=== PATIENT | male | born 1955 | race Caucasian/White ===

== ENCOUNTER → 2018-04-20 09:53 | Outpatient (CLI) | payer BC, SELFPAY ==
[2018-04-20 12:27] LABS: Absolute Lymphocyte Count 1.18 X10^3/ul (0.83-4.51); Absolute Neutrophil Count 6.8 X10^3/uL (2.0-7.7); Basophil# 0.02 X10^3/uL; Basophil% 0.2 % (0-1); Eosinophil# 0.36 X10^3/uL; Eosinophils% 3.9 % (0-5); Hematocrit 53.6 % (40-54); Lymphocyte # 1.18 X10^3/ul (4.0); Lymphocyte % 12.9 % (19-41); Mean Corp Hgb Conc 33.6 g/gl (32-36); Mean Corpuscular Hgb 30.2 pg (27.0-32.0); Mean Corpuscular Volume 89.8 fL (80-94); Mean Platelet Vol. 10.3 fl (6.2-12.0); Monocyte# 0.77 X10^3/uL; Monocyte% 8.4 % (0-10); Neutrophil # 6.79 X10^3/uL (2.7-7.7); Neutrophil % 73.9 % (47-70); Platelet Count 203 K/mm3 (150-450); RBC Distribution Width CV 13.1 % (11.6-14.6); RBC Distribution Width SD 43.7 fl (35.1-43.9); Red Blood Count 5.97 M/mm3 (4.6-6.2); White Blood Count 9.2 K/mm3 (4.4-11.0)
[2018-04-20 12:32] LABS: POSITIVE COUNT NO; POSITIVE DIFFERENTIAL NO; POSITIVE MORPHOLOGY NO
[2018-04-20 12:52] LABS: Hemoglobin A1c 6.2 % (4.2-6.3)
[2018-04-20 12:53] LABS: AST(SGOT) 17 U/L (15-37); Alanine Aminotransfer ALT/SGPT 28 U/L (16-61); Albumin, Serum 3.8 g/dL (3.2-5.0); Alkaline Phosphatase 130 U/L (45-117); Anion Gap 8 (5-15); BUN 18 mg/dL (7-18); BUN/Creat Ratio 16.8 RATIO (10-20); Calcium,Total 9.7 mg/dL (8.5-10.1); Chloride 103 mmol/L (98-107); Cholesterol 106 mg/dL (200); Creatinine, Serum 1.07 mg/dL (0.70-1.30); EST Glomerular Filtration Rate 74 mL/min (>60); Est Glom Filt Rate - Afr Amer 90 mL/min (>60); Globulin 3.7 g/dL (2.2-4.2); Glucose 185 mg/dL (74-106); High Density Lipoprotein 44 mg/dL; Protein, Total 7.5 g/dL (6.4-8.2); Sodium Level 137 mmol/L (136-145); Triglycerides 87 mg/dL; Very Low Density Lipoprotein 17 mg/dL (5-40)
== END ==
PROVIDERS: Family Provider Family Medicine; PCP Family Medicine; Visit Provider Family Medicine
DX: Z01.818 Encounter for other preprocedural examination (principal)
CPT/HCPCS: 36415; 80053; 80061; 83036; 85025

== ENCOUNTER → 2018-04-28 12:41 | Outpatient (CLI) | payer BC, SELFPAY ==
[2018-04-28 14:16] LABS: Absolute Lymphocyte Count 1.51 X10^3/ul (0.83-4.51); Absolute Neutrophil Count 6.5 X10^3/uL (2.0-7.7); Basophil# 0.03 X10^3/uL; Basophil% 0.3 % (0-1); Eosinophil# 0.15 X10^3/uL; Eosinophils% 1.7 % (0-5); Hematocrit 55.1 % (40-54); Lymphocyte # 1.51 X10^3/ul (4.0); Lymphocyte % 16.8 % (19-41); Mean Corp Hgb Conc 34.3 g/gl (32-36); Mean Corpuscular Hgb 30.4 pg (27.0-32.0); Mean Corpuscular Volume 88.6 fL (80-94); Mean Platelet Vol. 9.4 fl (6.2-12.0); Monocyte# 0.75 X10^3/uL; Monocyte% 8.3 % (0-10); Neutrophil # 6.49 X10^3/uL (2.7-7.7); Platelet Count 256 K/mm3 (150-450); RBC Distribution Width CV 12.9 % (11.6-14.6); RBC Distribution Width SD 42.2 fl (35.1-43.9); Red Blood Count 6.22 M/mm3 (4.6-6.2)
[2018-04-28 14:21] LABS: Hemoglobin 18.9 g/dl (13.0-16.5); POSITIVE COUNT NO; POSITIVE DIFFERENTIAL NO; POSITIVE MORPHOLOGY NO
[2018-04-28 15:16] LABS: Ferritin 188 ng/mL (26-388); Iron 90 ug/dL (65-175); Iron Binding Capacity,Total 325 ug/dL (250-450)
[2018-04-30 11:11] LABS: Transferrin 260 mg/dL (200-370)
== END ==
PROVIDERS: Family Medicine; Family Provider Family Medicine; PCP Family Medicine; Referring Provider Family Medicine; Visit Provider Family Medicine
DX: D75.1 Secondary polycythemia (principal); R89.9 Unspecified abnormal finding in specimens from other organs, systems and tissues
CPT/HCPCS: 36415; 82728; 83540; 83550; 84466; 85025

== ENCOUNTER 2018-05-13 10:37 | Day surgery (SDC) | payer BC, SELFPAY ==
[2018-05-06 09:26] VITALS: BP 137/85; PULSE 88; RESP 16; TEMP 37.1; O2SAT 98; BMI 34.4
[2018-05-13 11:27] VITALS: BP 145/85; PULSE 83; RESP 16; TEMP 36.4; O2SAT 100; BMI 34.4
[2018-05-13 11:45] LABS: Bedside Glucose 168 mg/dL (70-110)
[2018-05-13] MEDS: Tetracaine 0.5% Ophthalmic Bottle 1 DRP (12:53)
--- NOTE | 2018-05-13 13:14 | PCM.DC.CATCL ---
Allergies/Adverse Reactions: Allergies hydroxyurea [From Hydrea] Allergy (Verified 05/06/18 09:17) Other MOUTH SORES Medications to take at Discharge Allopurinol 300 mg PO DAILY 04/07/16 Glimepiride 4 mg PO BID 04/07/16 Metformin [Metformin HCl] 1,000 mg PO BID 04/07/16 Aspirin E.C. [Ecotrin] 81 mg PO DAILY@0800 05/06/18 Atorvastatin Calcium [Lipitor] 40 mg PO QHS 05/06/18 Carvedilol [Coreg] 18.75 mg PO BID 05/06/18 Dulaglutide [Trulicity] 1.5 mg SQ QWEEK 05/06/18 Fish Oil/Dha/Epa [Fish Oil 1,200 mg Fish Oil] 1 each PO DAILY 05/06/18 Lisinopril [Zestril] 10 mg PO DAILY 05/06/18 Psyllium Husk [Fiber] 0.52 gm PO DAILY 05/06/18 Cataract Instructions: -Take a pain reliever such as Tylenol, Aspirin or Ibuprofen if needed for eye aching or pain. If this is not enough relief for you pain, call your doctor (or the doctor caregivers non medical), even at night. -You are scheduled for a follow-up appointment at [facility] the day after surgery. You should have someone drive you. -Transient pain and irritation are due to the incision that was made at the time of surgery and do not indicate any trouble. Our office numbers are . If there is no answer, or if it is after our normal business hours, call your surgeon. My home phone number is: Dr. Sonal Dietz INSTRUCTIONS FOLLOWING TOPICAL ANESTHETIC CATARACT SURGERY Protect operated eye with glasses or metal shield at all times. Instill one drop of Polytrim (or other antibiotic drop), one drop of Prednisolone and one drop of Acular in the operated eye four times a day (breakfast, lunch, dinner, and bedtime) until the doctor tells you to quit or decrease them. Wait 3-5 minutes between each drop. Please begin these immediately upon arriving at home. if your surgery is in t he afternoon, try to use the drops at least three more times the day of surgery and again the following morning before your appointment. INSTRUCTIONS FOLLOWING RETROBULBAR CATARACT SURGERY Keep the eye patch and metal shield on until you see your surgeon the day after surgery - these will be removed in the office that day. Do not drive while the patch is on your eye. You will be instructed about the use of drops for the operated eye at that visit. Primary Care Physician: Swapnil Osullivan MD [Primary Care Provider] -
--- NOTE | 2018-05-13 13:14 | PCM.OP.BLANK ---
Operative Report Date of Procedure: 05/13/18 Preoperative Diagnosis: Cataract Right Eye Postoperative Diagnosis: Same Procedure: Cataract Extraction via phacoemulsification with intraocular lens implant Right Eye Anesthesia: Mac/topical Complications: none Estimated Blood Loss: none Indications for procedure: This is a 62 year old male with history of worsening vision in the right eye secondary to cataract. After discussion of the risks, benefits, and alternatives procedure the patient agreed to proceed with cataract extraction of the right eye. Description of procedure: The patient was brought to the operative room where a time out was performed prior to the start of the procedure. Anesthesia team induced light sedation, and the eye was prepped and draped in the normal sterile fashion for eye surgery. A flavia blade knife was used to create a paracentesis incision. Preservative free lidocaine followed by viscoelastic was introduced into the anterior chamber. A keratome was used to create a clear corneal biplanar incision at the temporal limbus. A cystotome was used to begin the capsulorhexis, which was completed in a continuous curvilinear fashion using the capsulorhexis forceps. BSS on a tesfaye cannula was used to hydrate beneath the lens capsule until the lens was noted to be freely mobile in the capsular bag. Phacoemulsification was used to remove the lens in a divide and conquer technique. Irrigation and aspiration was used to remove the remaining cortical material. The capsular bag was inflated with provisc, and a tecnis PCBOO 15.5 diopter lens was placed in the capsular bag and adjusted using a yolanda hook. The remaining viscoelastic material was removed. The wounds were hydrated and noted to be watertight with the use of a wexcell sponge. The patient was taken to the recovery room in a stable condition with instructions to follow up in the clinic for the scheduled postoperative visit.
[2018-05-13 13:17] VITALS: BP 142/95; BP 145/85; PULSE 82; RESP 16; TEMP 36.7; O2SAT 96
--- NOTE | 2018-05-13 13:17 | OP.PN_ITS ---
Immediate Post-Op Note Date of Procedure: 05/13/18 Primary Surgeon/Physician: Sonal Dietz MD drug abuse worker: Amadou burton Pre-Operative Diagnosis: cataract right eye Post-Operative Diagnosis: same Surgery/Procedure Performed:: PEM IOL OD Description of Surgical Findings:: cataract Estimated Blood Loss: none Specimen's removed: none Drains: none Type of Anesthesia:: MAC and Topical Anesth
[2018-05-13 13:22] VITALS: BP 141/91; BP 145/85; PULSE 82; RESP 16; O2SAT 97
[2018-05-13 13:27] VITALS: BP 139/93; BP 145/85; PULSE 84; RESP 16; O2SAT 98
[2018-05-13 13:32] VITALS: BP 145/84; BP 145/85; PULSE 81; RESP 16; TEMP 36.8; O2SAT 98
[2018-05-13 14:22] VITALS: BP 145/85
== END 2018-05-13 14:23 | disposition home or self-care (01) ==
LOC: SDC 10:45 → AC 10:45
PROVIDERS: Family Provider Family Medicine; PCP Family Medicine; Referring Provider Ophthalmology; Visit Provider Ophthalmology
PROC: (CPT 66984; principal; 2018-05-13 12:10)
DX: E11.36 Type 2 diabetes mellitus with diabetic cataract (principal); I25.10 Atherosclerotic heart disease of native coronary artery without angina pectoris; I25.2 Old myocardial infarction; I10 Essential (primary) hypertension; E78.00 Pure hypercholesterolemia, unspecified; G47.30 Sleep apnea, unspecified; Z79.82 Long term (current) use of aspirin; Z79.84 Long term (current) use of oral hypoglycemic drugs; Z79.899 Other long term (current) drug therapy
CPT/HCPCS: 66984; 82962; J7120

== ENCOUNTER → 2018-11-16 08:24 | Outpatient (CLI) | payer OTHER, SELFPAY ==
[2018-11-16 10:09] LABS: Mean Corp Hgb Conc 34.8 g/gl (32-36); Mean Corpuscular Hgb 31.2 pg (27.0-32.0); Mean Corpuscular Volume 89.7 fL (80-94); Mean Platelet Vol. 10.1 fl (6.2-12.0); Platelet Count 204 K/mm3 (150-450); RBC Distribution Width CV 12.9 % (11.6-14.6); RBC Distribution Width SD 41.7 fl (35.1-43.9); Red Blood Count 6.29 M/mm3 (4.6-6.2); White Blood Count 8.3 K/mm3 (4.4-11.0)
[2018-11-16 10:13] LABS: Hematocrit 56.4 % (40-54)
[2018-11-16 10:15] LABS: Hemoglobin 19.6 g/dl (13.0-16.5); Scan Indicated on CBC? Y/N NO
[2018-11-16 10:47] LABS: Anion Gap 7 (5-15); BUN 28 mg/dL (7-18); BUN/Creat Ratio 21.4 RATIO (10-20); Calcium,Total 10.2 mg/dL (8.5-10.1); Chloride 102 mmol/L (98-107); Cholesterol 122 mg/dL (200); Creatinine, Serum 1.31 mg/dL (0.70-1.30); EST Glomerular Filtration Rate 59 mL/min (>60); Est Glom Filt Rate - Afr Amer 71 mL/min (>60); Glucose 171 mg/dL (74-106); High Density Lipoprotein 41 mg/dL; Potassium 4.5 mmol/L (3.5-5.1); Sodium Level 134 mmol/L (136-145); Triglycerides 122 mg/dL; Very Low Density Lipoprotein 24 mg/dL (5-40)
== END ==
PROVIDERS: Family Provider Family Medicine; PCP Family Medicine; Visit Provider Family Medicine
DX: E11.9 Type 2 diabetes mellitus without complications (principal); E83.119 Hemochromatosis, unspecified
CPT/HCPCS: 36415; 80048; 80061; 85027

== ENCOUNTER → 2019-08-12 09:52 | Outpatient (CLI) | payer OTHER, SELFPAY ==
[2019-06-14 14:18] VITALS: BMI 29.4
[2019-08-12 13:00] LABS: Anion Gap 4 (5-15); BUN 30 mg/dL (7-18); BUN/Creat Ratio 25.9 RATIO (10-20); Calcium,Total 10.1 mg/dL (8.5-10.1); Chloride 105 mmol/L (98-107); Creatinine, Serum 1.16 mg/dL (0.70-1.30); EST Glomerular Filtration Rate 68 mL/min (>60); Est Glom Filt Rate - Afr Amer 82 mL/min (>60); Glucose 137 mg/dL (74-106); Potassium 4.5 mmol/L (3.5-5.1); Sodium Level 136 mmol/L (136-145)
== END ==
PROVIDERS: PCP Family Medicine; Referring Provider Family Medicine; Visit Provider Family Medicine
DX: E11.9 Type 2 diabetes mellitus without complications (principal)
CPT/HCPCS: 36415; 80048

== ENCOUNTER → 2020-04-11 15:45 | Outpatient (CLI) | payer OTHER, SELFPAY ==
[2019-06-14 14:18] VITALS: BMI 29.4
[2020-04-11 18:34] LABS: AST(SGOT) 18 U/L (15-37); Alanine Aminotransfer ALT/SGPT 26 U/L (16-61); Albumin, Serum 3.6 g/dL (3.2-5.0); Alkaline Phosphatase 95 U/L (45-117); Anion Gap 5 (5-15); BUN 25 mg/dL (7-18); BUN/Creat Ratio 18.5 RATIO (10-20); Calcium,Total 9.5 mg/dL (8.5-10.1); Chloride 105 mmol/L (98-107); Creatinine, Serum 1.35 mg/dL (0.70-1.30); EST Glomerular Filtration Rate 57 mL/min (>60); Est Glom Filt Rate - Afr Amer 68 mL/min (>60); Globulin 3.6 g/dL (2.2-4.2); Glucose 162 mg/dL (74-106); Potassium 4.2 mmol/L (3.5-5.1); Protein, Total 7.2 g/dL (6.4-8.2); Sodium Level 137 mmol/L (136-145); Thyroid Stim Hormone (TSH) 0.35 uIU/mL (0.358-3.74)
[2020-04-12 09:47] LABS: PTHIN 61.4 pg/mL (18.4-80.1)
== END ==
PROVIDERS: PCP Family Medicine; Referring Provider Family Medicine; Visit Provider Family Medicine
DX: E83.52 Hypercalcemia (principal)
CPT/HCPCS: 36415; 80053; 82330; 83970; 84443

== ENCOUNTER → 2020-05-10 08:21 | Outpatient (CLI) | payer OTHER, SELFPAY ==
[2019-06-14 14:18] VITALS: BMI 29.4
[2020-05-10 10:31] LABS: Cholesterol 174 mg/dL (200); High Density Lipoprotein 54 mg/dL; Triglycerides 86 mg/dL; Very Low Density Lipoprotein 17 mg/dL (5-40)
== END ==
PROVIDERS: PCP Family Medicine; Referring Provider Family Medicine; Visit Provider Family Medicine
DX: E78.5 Hyperlipidemia, unspecified (principal)
CPT/HCPCS: 36415; 80061

== ENCOUNTER → 2021-03-15 07:51 | Outpatient (CLI) | payer OTHER, SELFPAY ==
[2021-03-15 10:54] LABS: Anion Gap 8 (5-15); BUN 24 mg/dL (7-18); BUN/Creat Ratio 24.9 RATIO (10-20); Calcium,Total 9.7 mg/dL (8.5-10.1); Chloride 104 mmol/L (98-107); Cholesterol 103 mg/dL (200); Creatinine, Serum 0.96 mg/dL (0.70-1.30); EST Glomerular Filtration Rate 83 mL/min (>60); Est Glom Filt Rate - Afr Amer 101 mL/min (>60); Glucose 129 mg/dL (74-106); High Density Lipoprotein 48 mg/dL; Potassium 4.2 mmol/L (3.5-5.1); Sodium Level 137 mmol/L (136-145); Triglycerides 102 mg/dL; Very Low Density Lipoprotein 20 mg/dL (5-40)
== END ==
PROVIDERS: PCP Family Medicine; Referring Provider Family Medicine; Visit Provider Family Medicine
DX: I10 Essential (primary) hypertension (principal)
CPT/HCPCS: 36415; 80048; 80061

== ENCOUNTER → 2021-05-31 08:15 | Outpatient (CLI) | payer OTHER, SELFPAY ==
--- NOTE | 2021-05-31 08:32 | US_ITS ---
INDICATION: RUQ GALLSTONE EXAMINATION: Ultrasound US Abdomen Limited (quadrant) TECHNIQUE: Grant scale imaging with graded compression and color doppler was obtained of the right upper quadrant COMPARISON: Ultrasound from 07/25/2015, 02/15/2016. FINDINGS: Liver: Liver measures approximately 21 cm and is enlarged but stable since 2015. Mildly increased echogenicity consistent with diffuse hepatic steatosis. No masses. Hepatic color flow is present. The direction of portal flow is hepatopedal. Gallbladder: Cholelithiasis. Normal distention. No gallbladder wall thickening or pericholecystic fluid. No sonographic Chen sign. No intrahepatic duct dilation. Common bile duct: 3 mm, within normal limits. Right kidney: 14.0 x 6.3 x 5.5 cm. Renal cortex measures 1.8 cm and is within normal limits. No masses. No echogenic calculi. No hydronephrosis. Pancreas: Not visualized due to overlying bowel gas. US/Abdomen Limited IMPRESSION: 1. Cholelithiasis without findings to suggest acute cholecystitis. 2. Stable hepatomegaly and diffuse hepatic steatosis. No hepatic masses. Electronically Signed: Henrry Allen MD at 10:24 EST Tel , Service support ,
[2021-05-31 09:31] LABS: AST(SGOT) 10 U/L (15-37); Alanine Aminotransfer ALT/SGPT 21 U/L (16-61); Albumin, Serum 3.5 g/dL (3.2-5.0); Alkaline Phosphatase 90 U/L (45-117); Anion Gap 5 (5-15); BUN 23 mg/dL (7-18); BUN/Creat Ratio 22.1 RATIO (10-20); Calcium,Total 9.4 mg/dL (8.5-10.1); Chloride 107 mmol/L (98-107); Cholesterol 94 mg/dL (200); Creatinine, Serum 1.04 mg/dL (0.70-1.30); EST Glomerular Filtration Rate 76 mL/min (>60); Est Glom Filt Rate - Afr Amer 92 mL/min (>60); Globulin 3.6 g/dL (2.2-4.2); Glucose 161 mg/dL (74-106); High Density Lipoprotein 44 mg/dL; Potassium 4.4 mmol/L (3.5-5.1); Protein, Total 7.1 g/dL (6.4-8.2); Sodium Level 139 mmol/L (136-145); Triglycerides 63 mg/dL; Very Low Density Lipoprotein 13 mg/dL (5-40)
== END ==
PROVIDERS: PCP Family Medicine; Visit Provider Family Medicine
DX: Z00.00 Encounter for general adult medical examination without abnormal findings (principal); K80.20 Calculus of gallbladder without cholecystitis without obstruction
CPT/HCPCS: 36415; 76705; 80053; 80061

== ENCOUNTER 2021-07-12 17:44 | Outpatient (CLI) | payer OTHER, SELFPAY | END 2021-07-12 23:59 | disposition short-term general hospital (02) | PROVIDERS: PCP Family Medicine; Visit Provider Registered Nurse | DX: U07.1 COVID-19 (principal) | CPT/HCPCS: 87635; U0003; U0005 ==

== ENCOUNTER 2021-07-17 15:59 | Outpatient (CLI) | payer OTHER, SELFPAY ==
[2021-07-17 16:16] VITALS: BP 127/80; PULSE 86; RESP 16; TEMP 37.1; O2SAT 100; BMI 32.5
[2021-07-17] MEDS: 0.9% Saline Lock 10 ML Syringe IV (16:17)
[2021-07-17 16:54] VITALS: BP 142/83; PULSE 83; RESP 16; TEMP 36.7; O2SAT 100
[2021-07-17 17:54] VITALS: BP 134/90; PULSE 80; RESP 16; TEMP 36.9; O2SAT 100
== END 2021-07-17 23:59 | disposition home or self-care (01) ==
LOC: MS3OUT 16:00 → MS3 16:01
PROVIDERS: PCP Family Medicine; Referring Provider Nurse Practitioner Adult Health; Visit Provider Nurse Practitioner Adult Health
DX: Z23 Encounter for immunization (principal); U07.1 COVID-19
CPT/HCPCS: J7050; M0245; Q0245; A4216

== ENCOUNTER 2021-08-24 10:10 | Outpatient (CLI) | payer OTHER, SELFPAY ==
[2021-08-24 11:46] LABS: Anion Gap 5 (5-15); BUN 27 mg/dL (7-18); BUN/Creat Ratio 24.5 RATIO (10-20); Calcium,Total 9.7 mg/dL (8.5-10.1); Chloride 106 mmol/L (98-107); Cholesterol 106 mg/dL (200); EST Glomerular Filtration Rate 71 mL/min (>60); Est Glom Filt Rate - Afr Amer 86 mL/min (>60); Glucose 157 mg/dL (74-106); High Density Lipoprotein 45 mg/dL; Potassium 4.6 mmol/L (3.5-5.1); Sodium Level 138 mmol/L (136-145); Triglycerides 97 mg/dL; Very Low Density Lipoprotein 19 mg/dL (5-40)
== END 2021-08-24 23:59 | disposition home or self-care (01) ==
LOC: LAB 10:12
PROVIDERS: PCP Family Medicine; Visit Provider Family Medicine
DX: E78.5 Hyperlipidemia, unspecified (principal)
CPT/HCPCS: 36415; 80048; 80061

== ENCOUNTER 2021-10-15 08:01 | Day surgery (SDC) | payer OTHER, SELFPAY ==
--- NOTE | 2021-09-13 07:05 | PCM.HP.BLA ---
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 Is patient in pain?: No Allergies No Known Allergies Allergy (Verified 06/07/21 08:03) Medications glimepiride 4 mg PO BID 04/07/16 [History Confirmed 06/07/21] aspirin 81 mg PO DAILY@0800 05/06/18 [History Confirmed 06/07/21] dulaglutide 1.5 mg SQ QWEEK 05/06/18 [History Confirmed 06/07/21] fish oil-dha-epa 1 ea PO DAILY 05/06/18 [History Confirmed 06/07/21] psyllium husk 0.52 g PO DAILY 05/06/18 [History Confirmed 06/07/21] empagliflozin 10 mg tablet 10 mg PO DAILY 06/13/19 [History Confirmed 06/07/21] metformin 1,000 mg tablet 1,000 mg PO BID #180 tab 06/13/19 [History Confirmed 06/07/21] lisinopril 10 mg tablet 10 mg PO DAILY #90 tab 06/14/19 [Rx Confirmed 06/07/21] sildenafil 100 mg tablet 100 mg PO DAILY PRN 06/11/20 [History Confirmed 06/07/21] rosuvastatin 20 mg tablet 20 mg PO DAILY #90 tab 05/24/21 [Rx Confirmed 06/07/21] carvedilol 12.5 mg tablet See Rx Instructions .ROUTE .COMPLEX #270 tab 06/03/21 [Rx Confirmed 06/07/21] coenzyme Q10 100 mg capsule 100 mg PO DAILY 06/07/21 [History Confirmed 06/07/21] hydroxyurea 500 mg capsule cap PO 06/07/21 [History Confirmed 06/07/21] [facility] Medical History (Updated 06/07/21 @ 08:[address] Jorge Brice MD) Atherosclerosis of coronary artery of [place] heart without angina pectoris Diabetes Erectile dysfunction Gallstones History of myocardial infarction in adulthood (~2015) HTN (hypertension) Hyperlipidemia Type 2 diabetes mellitus without complication Surgical History (Updated 06/07/21 @ 08:18 by Jane Medellin) H/O vasectomy History of colonoscopy (~2008) History of coronary artery stent placement (04/22/16) History of tonsillectomy Hx of cataract surgery Family History Grandmother Myocardial infarction Father Heart disease Social History Smoking Status: Never smoker alcohol intake: never substance use type: does not use caffeine: Yes Type: coffee Number of servings: 1 and tea HPI HPI HPI: JOSE JOVEL, is a 65 M who presents to the office today for screening colonoscopy. The patient's last colonoscopy was in 2008. It was normal. Patient denies any family history of colon cancer or blood in stool or abdominal pain. Patient also has known gallstones but he reports no right upper quadrant pain. Patient reports no postprandial pain or discomfort. The patient says occasionally has episodes of vomiting but does not note any abdominal pain with these. ROS General General: Yes fatigue; No weight change, appetite, colon cancer, breast cancer or weakness HEENT HEENT: No difficulty swallowing, eye injury, eye surgery, swollen glands or hoarseness Endo Endocrine: Yes diabetes mellitus; No thyroid disease, thyroid cancer, Hair loss, heat intolerance or cold intolerance Musc Musculoskeletal: Yes gout; No back problems, arthritis, rheumatoid arthritis or joint pain Cardio Cardiovascular: Yes heart disease, heart attack and heart stent; No murmur, pacemaker, atrial fibrillation, high blood pressure, palpitations, shortness of breat with exertion or chest pain Psych Psychiatric: No depression, anxiety or hearing voices Resp Respiratory: No shortness of breath, Yes sleep apnea, No cough, No COPD, No asthma, No emphysema and No wheezing Gastro Gastrointestinal: No abdominal pain, Yes nausea or vomiting, No diarrhea, Yes constipation, No blood in stool, No acid reflux, No hemorrhoids, No ulcers, Yes gallbladder problem and No black,tarry stools [facility] Hematologic: No blood thinners, Yes blood disorders, No bleeding, No anemia and No blood clots Neuro Neurologic: No weakness Exam Const General: cooperative Orientation: alert and oriented x3 HENMT Head: normal to inspection Neck Neck: normal visual inspection and full ROM Chest Chest palpation & inspection: normal inspection of the chest Resp Effort & Inspection: normal respiratory effort Auscultation: clear to auscultation bilaterally Cardio Rate: regular rate Rhythm: regular rhythm GI Inspection: non-distended Palpation: soft and nontender Skin General: no rashes or lesions noted Neuro General: patient alert and patient oriented x3 Extrem General: full ROM Psych Appearance: grossly normal Mental Status: mental status grossly normal Assessment and Plan Assessment and Plan (1) Screen for colon cancer: Status: Acute (2) Gallstones: Status: Acute Orders: Orders: Colonoscopy Today Z12.11 Plan - Dr. Jorge Brice MD: Patient does have gallstones on ultrasound but no signs of acute cholecystitis and the patient does not report any symptoms of biliary colic. I informed him of the risk of acute cholecystitis as well as the signs and symptoms. I explained that asymptomatic gallstones do not necessarily necessitate cholecystectomy at this time the patient does not want to be too aggressive. Patient is in need of screening colonoscopy as his last one was in 2008. Plan for screening colonoscopy. I explained endoscopy in detail to the patient. I explained the risks including but not limited to stroke or heart attack with anesthesia, perforation of the GI tract, bleeding, infection. I explained that any of these could necessitate further emergency surgery. The patient understands and all questions were answered sufficiently. The patient wishes to proceed with procedure. Jorge Brice MD Pager: [facility] [address] [place] [address], [address] [place] [address] Office: I have seen and reexamined the patient and there are no changes.
[2021-09-13 07:13] VITALS: BP 136/85; PULSE 87; RESP 18; TEMP 36.4; O2SAT 100; BMI 33.2
[2021-09-13] MEDS: Lactated Ringers 1,000 ML 15 ML IV (07:20)
[2021-09-13 08:36] LABS: Bedside Glucose 196 mg/dL (74-106)
[2021-10-15 08:31] VITALS: BP 119/75; PULSE 94; RESP 16; TEMP 36.6; O2SAT 96; BMI 32.8
[2021-10-15] MEDS: Lactated Ringers 1,000 ML 15 ML IV (08:36)
[2021-10-15 08:40] LABS: Bedside Glucose 204 mg/dL (74-106)
--- NOTE | 2021-10-15 08:59 | SUR.PREOP ---
Tap Water Enema performed at 0855. Patient tolerated well. Pending output and Dr. Saucedo's decision.
--- NOTE | 2021-10-15 09:10 | SUR.PREOP ---
Dr. Babs cortes to proceed with procedure after visualizing output in toilet.
--- NOTE | 2021-10-15 10:07 | PCM.HP.BLA ---
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 Is patient in pain?: No Allergies No Known Allergies Allergy (Verified 06/07/21 08:03) Medications glimepiride 4 mg PO BID 04/07/16 [History Confirmed 06/07/21] aspirin 81 mg PO DAILY@0800 05/06/18 [History Confirmed 06/07/21] dulaglutide 1.5 mg SQ QWEEK 05/06/18 [History Confirmed 06/07/21] fish oil-dha-epa 1 ea PO DAILY 05/06/18 [History Confirmed 06/07/21] psyllium husk 0.52 g PO DAILY 05/06/18 [History Confirmed 06/07/21] empagliflozin 10 mg tablet 10 mg PO DAILY 06/13/19 [History Confirmed 06/07/21] metformin 1,000 mg tablet 1,000 mg PO BID #180 tab 06/13/19 [History Confirmed 06/07/21] lisinopril 10 mg tablet 10 mg PO DAILY #90 tab 06/14/19 [Rx Confirmed 06/07/21] sildenafil 100 mg tablet 100 mg PO DAILY PRN 06/11/20 [History Confirmed 06/07/21] rosuvastatin 20 mg tablet 20 mg PO DAILY #90 tab 05/24/21 [Rx Confirmed 06/07/21] carvedilol 12.5 mg tablet See Rx Instructions .ROUTE .COMPLEX #270 tab 06/03/21 [Rx Confirmed 06/07/21] coenzyme Q10 100 mg capsule 100 mg PO DAILY 06/07/21 [History Confirmed 06/07/21] hydroxyurea 500 mg capsule cap PO 06/07/21 [History Confirmed 06/07/21] [facility] Medical History (Updated 06/07/21 @ 08:[address] Jorge Brice MD) Atherosclerosis of coronary artery of [place] heart without angina pectoris Diabetes Erectile dysfunction Gallstones History of myocardial infarction in adulthood (~2016) HTN (hypertension) Hyperlipidemia Type 2 diabetes mellitus without complication Surgical History (Updated 06/07/21 @ 08:18 by Jane Medellin) H/O vasectomy History of colonoscopy (~2008) History of coronary artery stent placement (04/22/16) History of tonsillectomy Hx of cataract surgery Family History Grandmother Myocardial infarction Father Heart disease Social History Smoking Status: Never smoker alcohol intake: never substance use type: does not use caffeine: Yes Type: coffee Number of servings: 1 and tea HPI HPI HPI: JOSE JOVEL, is a 65 M who presents to the office today for screening colonoscopy. The patient's last colonoscopy was in 2008. It was normal. Patient denies any family history of colon cancer or blood in stool or abdominal pain. Patient also has known gallstones but he reports no right upper quadrant pain. Patient reports no postprandial pain or discomfort. The patient says occasionally has episodes of vomiting but does not note any abdominal pain with these. ROS General General: Yes fatigue; No weight change, appetite, colon cancer, breast cancer or weakness HEENT HEENT: No difficulty swallowing, eye injury, eye surgery, swollen glands or hoarseness Endo Endocrine: Yes diabetes mellitus; No thyroid disease, thyroid cancer, Hair loss, heat intolerance or cold intolerance Musc Musculoskeletal: Yes gout; No back problems, arthritis, rheumatoid arthritis or joint pain Cardio Cardiovascular: Yes heart disease, heart attack and heart stent; No murmur, pacemaker, atrial fibrillation, high blood pressure, palpitations, shortness of breat with exertion or chest pain Psych Psychiatric: No depression, anxiety or hearing voices Resp Respiratory: No shortness of breath, Yes sleep apnea, No cough, No COPD, No asthma, No emphysema and No wheezing Gastro Gastrointestinal: No abdominal pain, Yes nausea or vomiting, No diarrhea, Yes constipation, No blood in stool, No acid reflux, No hemorrhoids, No ulcers, Yes gallbladder problem and No black,tarry stools [facility] Hematologic: No blood thinners, Yes blood disorders, No bleeding, No anemia and No blood clots Neuro Neurologic: No weakness Exam Const General: cooperative Orientation: alert and oriented x3 HENMT Head: normal to inspection Neck Neck: normal visual inspection and full ROM Chest Chest palpation & inspection: normal inspection of the chest Resp Effort & Inspection: normal respiratory effort Auscultation: clear to auscultation bilaterally Cardio Rate: regular rate Rhythm: regular rhythm GI Inspection: non-distended Palpation: soft and nontender Skin General: no rashes or lesions noted Neuro General: patient alert and patient oriented x3 Extrem General: full ROM Psych Appearance: grossly normal Mental Status: mental status grossly normal Assessment and Plan Assessment and Plan (1) Screen for colon cancer: Status: Acute (2) Gallstones: Status: Acute Orders: Orders: Colonoscopy Today Z12.11 Plan - Dr. Jorge Brice MD: Patient is in need of screening colonoscopy as his last one was in 2008. Plan for screening colonoscopy. I explained endoscopy in detail to the patient. I explained the risks including but not limited to stroke or heart attack with anesthesia, perforation of the GI tract, bleeding, infection. I explained that any of these could necessitate further emergency surgery. The patient understands and all questions were answered sufficiently. The patient wishes to proceed with procedure. Jorge Brice MD Pager: [facility] [address] [place] [address], [address] [place] [address] Office: Patient was rescheduled due to poor bowel prep. This time he is able to see the bowel on the toilet during bowel prep. I have re-examined the patient. There are no clinical changes since date of exam.
[2021-10-15 10:10] VITALS: BP 101/78; BP 119/75; PULSE 89; RESP 18; TEMP 37.1; O2SAT 100
--- NOTE | 2021-10-15 10:12 | OP.COLON_ITS ---
Patient Name: Be Webster Procedure Date: 10/15/2021 9:27 AM Date of : 1955 Age: 65 Procedure: Colonoscopy Indications: Screening for colorectal malignant neoplasm Providers: Jorge Brice MD Referring MD: Swapnil Osullivan MD Medicines: Monitored Anesthesia Care Patient Profile: This is a 65 year old male. Refer to note in patient chart for documentation of history and physical. Last Colonoscopy: none. The patient's first colonoscopy is today. Complications: No immediate complications. Procedure: Pre-Anesthesia Assessment: - Prior to the procedure, a History and Physical was performed, and patient medications and allergies were reviewed. The patient's tolerance of previous anesthesia was also reviewed. The risks and benefits of the procedure and the sedation options and risks were discussed with the patient. All questions were answered, and informed consent was obtained. Prior Anticoagulants: The patient has taken no previous anticoagulant or antiplatelet agents. After reviewing the risks and benefits, the patient was deemed in satisfactory condition to undergo the procedure. After I obtained informed consent, the scope was passed under direct vision. Throughout the procedure, the patient's blood pressure, pulse, and oxygen saturations were monitored continuously. The Colonoscope was introduced through the anus and advanced to the cecum, identified by appendiceal orifice and ileocecal valve. The colonoscopy was performed without difficulty. The patient tolerated the procedure well. The quality of the bowel preparation was adequate. Scope In: 9:39:43 AM Scope Withdrawal Time 0 hours 6 minutes 30 seconds Scope Out: 10:04:20 AM Total Procedure Duration Time 0 hours 24 minutes 37 seconds Findings: The entire examined colon appeared normal on direct and retroflexion views. Impression: - The entire examined colon is normal on direct and retroflexion views. - No specimens collected. Recommendation: - Discharge patient to home. - Resume previous diet. - Continue present medications. - Repeat colonoscopy in 10 years for screening purposes. Procedure Code(s): --- Professional --- 14213, Colonoscopy, flexible; diagnostic, including collection of specimen(s) by brushing or washing, when performed (separate procedure) Diagnosis Code(s): --- Professional --- Z12.11, Encounter for screening for malignant neoplasm of colon CPT copyright 2017 [employer]. All rights reserved. The codes documented in this report are preliminary and upon certified coder review may be revised to meet current compliance requirements. Jorge Brice MD 10/15/2021 10:12:20 AM This report has been signed electronically. Number of Addenda: 0 Note Initiated On: 10/15/2021 9:27 AM
--- NOTE | 2021-10-15 10:13 | OP.CCLET_ITS ---
10/15/2021 Swapnil Osullivan MD [address] [place] [address] Re : Colonoscopy procedure for Be Webster Dear Dr. Osullivan This procedure was performed on Friday, October 15, 2021. My impressions and recommendations are as follows: Impressions : - The entire examined colon is normal on direct and retroflexion views. - No specimens collected. Recommendations : - Discharge patient to home. - Resume previous diet. - Continue present medications. - Repeat colonoscopy in 10 years for screening purposes. My findings are described in the full procedure note, which is enclosed. If I can be of further assistance, please feel free to contact me at Doctor phone number(s): , Work: . Sincerely, Jorge Brice MD 10/15/2021 10:12:20 AM This report has been signed electronically.
[2021-10-15 10:15] VITALS: BP 119/75; BP 119/77; PULSE 88; RESP 18; O2SAT 100
[2021-10-15 10:20] VITALS: BP 119/75; BP 119/81; PULSE 88; RESP 18; O2SAT 100
[2021-10-15 10:25] VITALS: BP 119/75; BP 129/82; PULSE 85; RESP 18; TEMP 36.7; O2SAT 100
[2021-10-15 10:36] VITALS: BP 119/75
== END 2021-10-15 23:59 | disposition home or self-care (01) ==
LOC: EN 08:02 → AC 08:03
PROVIDERS: PCP Family Medicine; Referring Provider Family Medicine; Visit Provider Surgery
PROC: 0DJD8ZZ Inspection of Lower Intestinal Tract, Via Natural or Artificial Opening Endoscopic (ICD-10-PCS; CPT 45378; principal; 2021-10-15 08:55)
DX: Z12.11 Encounter for screening for malignant neoplasm of colon (principal); E11.9 Type 2 diabetes mellitus without complications; K80.20 Calculus of gallbladder without cholecystitis without obstruction; I25.10 Atherosclerotic heart disease of native coronary artery without angina pectoris; G47.30 Sleep apnea, unspecified; Z79.84 Long term (current) use of oral hypoglycemic drugs; I25.2 Old myocardial infarction; I10 Essential (primary) hypertension; E78.00 Pure hypercholesterolemia, unspecified; Z79.82 Long term (current) use of aspirin; Z79.899 Other long term (current) drug therapy; Z95.5 Presence of coronary angioplasty implant and graft; Z86.16 Personal history of COVID-19
CPT/HCPCS: G0121; 82962; J7120; J2405

== ENCOUNTER 2021-10-30 07:54 | Outpatient (RCR) | payer OTHER, SELFPAY ==
[2021-10-30 08:07] VITALS: BP 138/87; PULSE 88; TEMP 36.2
--- NOTE | 2021-10-30 09:26 | RAD_ITS ---
STUDY: X-RAY - LEFT FOOT CLINICAL: Male, 65 years old. Wound on second toe. Evaluate for osteomyelitis. TECHNIQUE: 3 view(s) of the foot. COMPARISON: None. FINDINGS: Normal talus, calcaneus, and tarsal bones. Normal visualized subtalar, talonavicular, calcaneocuboid, tarsal and tarsometatarsal articulations. Normal metatarsi. Mild arthrosis of the MTP and IP joints. Soft tissue swelling of the first, second and third toes. RAD/Foot min 3 Views IMPRESSION: Mild osteoarthritic changes with soft tissue swelling. No bone erosion to suggest osteomyelitis. Electronically Signed: Miguelangel Valadez MD at 12:14 EDT ,
--- NOTE | 2021-10-30 09:47 | HP.PCM_ITS ---
History of Present Illness Date of Service: 10/30/21 Chief Complaint: Follow-up left second toe and left hallux History of Wound: 65-year-old white male with type 2 diabetes semi well- controlled. He appears to have Charcot of the right foot and a collapsed right arch. Appears with a nonhealing wound to his left second toe under the nail dorsal side and cellulitis to the whole toe. Also back in June developed a blister while on vacation wearing different shoes on the left hallux, that still has not closed and is a small open area full-thickness. [facility] Medical History (Reviewed 10/30/21 @ 09:53 by Analisa Fernandze BALANCE STAFF INSPECTOR, BALANCE STAFF INSPECTOR-C) Atherosclerosis of coronary artery of [place] heart without angina pectoris Back pain Cancer Cardiology follow-up encounter COVID-19 CPAP (continuous positive airway pressure) dependence Diabetes Enlarged prostate Erectile dysfunction Erythrocytosis Gallstones High cholesterol History of echocardiogram History of heart attack History of myocardial infarction in adulthood (~2015) History of pain when walking HTN (hypertension) Hyperlipidemia Non-smoker Sleep apnea Type 2 diabetes mellitus without complication Wears glasses Home Medications glimepiride 4 mg PO BID 04/07/16 [History Last Taken Unknown] aspirin 81 mg PO DAILY@0800 05/06/18 [History Last Taken 09/12/21] dulaglutide 1.5 mg SQ QWEEK 05/06/18 [History Last Taken Unknown] fish oil-dha-epa 1 ea PO BID 05/06/18 [History Last Taken Unknown] psyllium husk 0.52 g PO DAILY 05/06/18 [History Last Taken Unknown] empagliflozin 10 mg tablet 10 mg PO DAILY 06/13/19 [History Last Taken Unknown] metformin 1,000 mg tablet 1,000 mg PO BID #180 tab 06/13/19 [History Last Taken Unknown] lisinopril 10 mg tablet 10 mg PO DAILY #90 tab 06/14/19 [Rx Last Taken 10/15/21] sildenafil 100 mg tablet 100 mg PO DAILY PRN 06/11/20 [History Last Taken Unknown] rosuvastatin 20 mg tablet 20 mg PO DAILY #90 tab 05/24/21 [Rx Last Taken Unknown] coenzyme Q10 100 mg capsule 100 mg PO DAILY 06/07/21 [History Last Taken Unknow n] hydroxyurea 500 mg capsule 500 mg PO QHS 06/07/21 [History Last Taken Unknown] carvedilol 17.75 mg PO BID 07/17/21 [History Last Taken 10/15/21] hydroxyurea 1,000 mg PO DAILY 07/17/21 [History Last Taken Unknown] loratadine [Claritin] 10 mg PO DAILY 09/09/21 [History Last Taken Unknown] loratadine [Claritin] 10 mg PO DAILY 10/09/21 [History Last Taken Unknown] allopurinol 300 mg PO DAILY 10/30/21 [History Last Taken Unknown] Allergy/AdvReac Type Severity Reaction Status Date / Time No Known Allergies Allergy Verified 10/15/21 08:29 Family History Grandmother Myocardial infarction Father Heart disease Surgical History H/O vasectomy History of cardiac catheterization History of colonoscopy (~2008) History of coronary artery stent placement (04/22/16) History of tonsillectomy Hx of cataract surgery Hx of wisdom tooth extraction Social History Smoking Status: Never smoker alcohol intake: never substance use type: does not use caffeine: Yes Type: coffee Number of servings: 1 and tea ROS Constitutional Constitutional: Reports systems reviewed and no addt'l complaints, except as documented Eyes Eyes: Reports systems reviewed and no addt'l complaints, except as documented ENT HEENT: Reports systems reviewed and no addt'l complaints, except as documented Cardiovascular Cardiovascular: Reports systems reviewed and no addt'l complaints, except as documented Respiratory/Chest Respiratory/Chest: Reports systems reviewed and no addt'l complaints, except as documented Gastrointestinal Gastrointestinal: Reports systems reviewed and no addt'l complaints, except as documented Genitourinary Genitourinary: Reports systems reviewed and no addt'l complaints, except as documented Musculoskeletal Musculoskeletal: Reports systems reviewed and no addt'l complaints, except as documented Integumentary Integumentary: Reports skin ulcer and wounds Neurologic Neurologic: Reports systems reviewed and no addt'l complaints, except as documented Psychiatric Psychiatric: Reports systems reviewed and no addt'l complaints, except as documented Endocrine Endocrinology: Reports systems reviewed and no addt'l complaints, except as documented Hematologic/Lymphatic Hematologic/Lymphatic: Reports systems reviewed and no addt'l complaints, except as documented Allergic/Immunologic Allergic/Immunologic: Reports systems reviewed and no addt'l complaints, except as documented Vital Signs Vital Signs Vital Signs: 10/30/21 08:07 Temperature 97.1 F L Temperature Source Temporal Pulse Rate 88 Blood Pressure 138/87 H Blood Pressure Mean 104 Blood Pressure Source Monitor Blood Pressure Position Sitting Blood Pressure Location Left Arm Physical Exam Const oriented x3 General Appearance: cooperative Exam Limitations: no limitations HEENT normocephalic Head and Scalp: normal to inspection Face and Sinus: normal facial exam Nose: external nose normal General Ear: hearing grossly impaired External Ear: external ears normal Mouth: oral and palatal mucosa normal Eyes PERRL General Eye: normal appearance of both eyes Neck full ROM General: normal visual inspection Resp normal respiratory effort Effort and Inspection: able to speak in complete sentences Auscultation: clear to auscultation bilaterally Cardio regular rate and regular rhythm Palpation: normal PMI Rate: regular rate Rhythm: regular rhythm GI Auscultation: normoactive bowel sounds Palpation: soft and no hepatosplenomegaly external exam normal Back/Spine Cervical Spine: cervical ROM normal Thoracic Spine / Upper Back: normal to inspection Lumbar Spine / Lower Back: normal to inspection Extremity normal to inspection General Extremity: normal exam except as noted Skin no rashes or lesions noted Neuro oriented x3 Psych Appearance: grossly normal Speech: normal speech Thought Content: normal thought content Judgement: judgement good Debridement Note Debridement Note Wound debrided: Left dorsal second toe Laterality: Left Wound Grade/Stage: DFU Type of Debridement: Selective debridement Anesthesia Used: 5% Lidocaine Gel Depth: Down to and including healthy tissue Percentage of wound debrided: 100 Instrument Used: 3mm curette Tissue Removed: Slough Severity: Fat Layer Exposed (Tendon shunt) Amount of bleeding with debridement: None Bleeding Controlled with: Compression and gauze Patient tolerated procedure: Patient tolerated procedure well Post-Debridement Measurements and Additional Note: Post-Debridement Measurements/Treatment DOMINIQUE - Nurse 1 - General Ulcer Assessment Start: 10/30/21 08:06 Freq: Status: Active Protocol: AIXA Activity Type Activity Date Activity User E-Sign Co-Sign Detail Recorded Client Recorded Date Recorded By Document 10/30/21 08:07 LIZ [id number] 10/30/21 08:22 LIZ 10/30/21 08:07 - Today's Visit Information Type of service Initial Visit Arrival Mode Ambulatory Patient Identification Verified (Name & Yes ) Vital Signs Temperature (97.8 F-99.1 F) 97.1 F L Temperature Source Temporal Pulse Rate (60-100) 88 Pulse Location Monitor Blood Pressure (90/60-120/80) 138/87 H Blood Pressure Mean 104 Source Monitor Position Sitting Blood Pressure Location Left Arm History Since Last Visit- (Skip if this is Patient's initial visit) Have you changed medications since your No last visit? Any new allergies or adverse reactions No Had a fall/change in ADL's that may No increase risk of falls Signs or symptoms of abuse and/or No neglect since last visit Have you been in the hospital since your No last visit? Has dressing in place as prescribed No Has compression in place as prescribed N/A Has offloadiing in place as prescribed N/A Experienced any changes in pain level or No management Left Footwear Regular Shoe Right Footwear Regular Shoe Pain Scale: 0-10 Numeric Is Patient Pain Free? Yes - Nurse 1 - General Ulcer Measurement Start: 10/30/21 08:06 Freq: Status: Active Protocol: Activity Type Activity Date Activity User E-Sign Co-Sign Detail Recorded Client Recorded Date Recorded By Document 10/30/21 08:07 LIZ [id number] 10/30/21 08:22 LIZ 10/30/21 08:07 Wound Center Nurse 1 #2 Left Hallux -Current Size (cm) - Length 0.2 -Current Size (cm) - Width 0.2 -Current Size (cm) - Depth 0.2 -Total Square Cm 0.04 -Exudate Amt Small -Exudate Type Serosanguineous -Wound Margin Distinct, Outline Attached -Necrosis Amt Large (67-100%) -Necrotic Tissue Type Adherent Slough -Texture ([place]-wound Skin Appearance) Assessed, Scarring -Moisture ([place]da-wound Skin Appearance) No Abnormality, Assessed -Color ([place]da-wound Skin Appearance) No Abnormality, Assessed -Temperature ([place]-wound Skin No Abnormality Appearance) (Pt Warm) -Tenderness on Palpation ([place]-wound No Skin Appearance) -Ulcer Cleansing Rinsed/ Irrigated with Saline -Foul Odor after Cleansing No -Anesthetic Used 5% Lidocaine Gel #1 left 2nd toe -Current Size (cm) - Length 0.2 -Current Size (cm) - Width 1.4 -Current Size (cm) - Depth 0.1 -Total Square Cm 0.28 -Exudate Amt Small -Exudate Type Yellow/Green -Wound Margin Distinct, Outline Attached -Granulation Amt None Present (0 %) -Necrosis Amt Large (67-100%) -Necrotic Tissue Type Adherent Slough -Texture (Gricelda-wound Skin Appearance) Assessed, Scarring -Moisture ([place]ric[place]da-wound Skin Appearance) Assessed, Maceration -Color ([place]ricelda-wound Skin Appearance) No Abnormality, Assessed -Temperature ([place]da-wound Skin No Abnormality Appearance) (Pt Warm) -Tenderness on Palpation ([place]-wound No Skin Appearance) -Ulcer Cleansing Rinsed/ Irrigated with Saline -Foul Odor after Cleansing No -Anesthetic Used 5% Lidocaine Gel Right Calf (cm) 40.5 Right Ankle (cm) 24 Left Calf (cm) 41.4 Left Ankle (cm) 27 WC - Nurse 2 - General Ulcer CM Notes Start: 10/30/21 08:06 Freq: Status: Active Protocol: Activity Type Activity Date Activity User E-Sign Co-Sign Detail Recorded Client Recorded Date Recorded By Document 10/30/21 08:37 MW [id number] 10/30/21 08:47 MW 10/30/21 08:37 Wound Center Nurse 2 #2 Left Hallux -Time 08:40 -Correct Patient Yes -Correct Side, Site, Position Yes -Correct Procedure Yes -Procedure Performed Yes -Type of Procedure Debridement -Clinical Debridement Subcutaneous -Tissue Removed Subcutaneous -Post Debridement (cm) - Length 0.4 -Post Debridement (cm) - Width 0.4 -Post Debridement (cm) - Depth 0.2 -Total Square (Post) (cm) 0.16 -Area of Debridement (cm) - Length 0.4 -Area of Debridement (cm) - Width 0.4 -Total Square (Area) (cm) 0.16 -Tunneling No -Undermining/Tunneling No -Circular Undermining No -Wound/Ulcer Outcome Not Healed -Ulcer Cleansing Rinsed/ Irrigated with Saline -Foul Odor after Cleansing No -Bioengineered Tissue No -Bleeding Controlled with Pressure -Treatment Response Procedure Tolerated Well -Offloading No -Debridement - Subq, 1st 20sq cm Yes #1 left 2nd toe -Time 08:41 -Correct Patient Yes -Correct Side, Site, Position Yes -Correct Procedure Yes -Procedure Performed Yes -Type of Procedure Debridement -Clinical Debridement Subcutaneous -Tissue Removed Subcutaneous -Post Debridement (cm) - Length 0.3 -Post Debridement (cm) - Width 1.3 -Post Debridement (cm) - Depth 0.2 -Total Square (Post) (cm) 0.39 -Area of Debridement (cm) - Length 0.3 -Area of Debridement (cm) - Width 1.3 -Total Square (Area) (cm) 0.39 -Tunneling No -Undermining/Tunneling No -Circular Undermining No -Wound/Ulcer Outcome Not Healed -Ulcer Cleansing Rinsed/ Irrigated with Saline -Foul Odor after Cleansing No -Bioengineered Tissue No -Bleeding Controlled with Pressure -Treatment Response Procedure Tolerated Well -Offloading No -Debridement - Subq, 1st 20sq cm No Pain Scale: 0-10 Numeric Is Patient Pain Free? Yes - Nurse 3 - General Ulcer D/C NN Start: 10/30/21 08:06 Freq: Status: Active Protocol: Activity Type Activity Date Activity User E-Sign Co-Sign Detail Recorded Client Recorded Date Recorded By Document 10/30/21 08:59 [id number] 10/30/21 09:00 LIZ 10/30/21 08:59 Wound Care Nurse 3 #2 Left Hallux -Ulcer Cleansing Rinsed/ Irrigated with Saline -Primary Dressing Applied Aquacel Extra -Primary Dressing Covered/Secured with Dry Gauze, Secured with Tape -Aquacel Extra 1 #1 left 2nd toe -Ulcer Cleansing Rinsed/ Irrigated with Saline -Primary Dressing Covered/Secured with Dry Gauze, Secured with Tape Pain Scale: 0-10 Numeric Is Patient Pain Free? Yes WC - Visit Discharge Discharge Condition Stable Ambulatory Status Ambulatory Transportation Private Auto Additional Wound Wound debrided: Left hallux Laterality: Left Type of Debridement: Excisional debridement Anesthesia Used: 5% Lidocaine Gel Depth: Down to and including healthy tissue Percentage of wound debrided: 100 Instrument Used: 3mm curette Severity: Limited To Skin Breakdown Amount of bleeding with debridement: Mild Bleeding Controlled with: Pressure Patient tolerated procedure: Patient tolerated procedure well Assessment/Plan Assessment/Plan (1) Uncontrolled type 2 diabetes mellitus with hyperglycemia: CODE(S): E11.65 - Type 2 diabetes mellitus with hyperglycemia (2) Diabetic foot ulcer associated with type 2 diabetes mellitus: CODE(S): E11.621 - Type 2 diabetes mellitus with foot ulcer; L97.509 - Non-pressure chronic ulcer of other part of unspecified foot with unspecified severity QUALIFIERS: Diabetic foot ulcer location: toe Laterality: left Non-pressure ulcer stage: unspecified non-pressure ulcer stage Qualified Code(s): E11.621 - Type 2 diabetes mellitus with foot ulcer; L97.529 - Non- pressure chronic ulcer of other part of left foot with unspecified severity PLAN: Wash left foot and in between toes with antibacterial soap. Aquacel's cell to wound base at left hallux and left second toe moistened. Cover with gauze and tape daily Cultures obtained will call with results Stop all other dressing changes Follow-up in 1 week (3) Open wound of foot: CODE(S): S91.309A - Unspecified open wound, unspecified foot, initial encounter QUALIFIERS: Encounter type: initial encounter Laterality: left Qualified Code(s): S91.302A - Unspecified open wound, left foot, initial encounter (4) Nonhealing nonsurgical wound: CODE(S): T14.8XXA - Other injury of unspecified body region, initial encounter
== END 2021-11-02 23:59 | disposition home or self-care (01) ==
LOC: WC 07:54
PROVIDERS: PCP Family Medicine; Referring Provider Nurse Practitioner; Visit Provider Nurse Practitioner
DX: E11.621 Type 2 diabetes mellitus with foot ulcer (principal); L97.522 Non-pressure chronic ulcer of other part of left foot with fat layer exposed; E11.65 Type 2 diabetes mellitus with hyperglycemia; E11.610 Type 2 diabetes mellitus with diabetic neuropathic arthropathy; Z79.84 Long term (current) use of oral hypoglycemic drugs; E78.5 Hyperlipidemia, unspecified; L03.032 Cellulitis of left toe; I25.10 Atherosclerotic heart disease of native coronary artery without angina pectoris; I10 Essential (primary) hypertension; Z79.899 Other long term (current) drug therapy; G47.30 Sleep apnea, unspecified; Z86.16 Personal history of COVID-19; I25.2 Old myocardial infarction
CPT/HCPCS: 11042; 73630; 87070; 87075; 87077; 87186; 87205; 99213; G0463

== ENCOUNTER 2021-11-27 08:00 | Outpatient (RCR) | payer OTHER, SELFPAY ==
[2021-11-03 00:52] VITALS: BP 138/87; PULSE 88; TEMP 36.2
[2021-11-06 08:13] VITALS: BP 140/84; PULSE 86; TEMP 36.1
--- NOTE | 2021-11-06 09:38 | PN.PCM_ITS ---
History of Present Illness Date of Service: 11/06/21 Chief Complaint: Follow-up left second toe and left hallux History of Wound: 65-year-old white male with type 2 diabetes semi well- controlled. He appears to have Charcot of the right foot and a collapsed right arch. Appears with a nonhealing wound to his left second toe under the nail dorsal side and cellulitis to the whole toe. Also back in June developed a blister while on vacation wearing different shoes on the left hallux, that still has not closed and is a small open area full-thickness. Progress of Wound: X-ray came back showing just some arthritis in the joints and labs came back negative for any infection. Cultures were positive and started on antibiotics this week we will see if there is an improvement with the redness of the toes. If continues we might still get an MRI of that foot. Measurements are about the same patient tolerating medications well no issues Subjective Subjective Patient has no concerns at this time went over all the labs with him Objective Data Objective Data As above right second toe still red warm to touch the hallux still open. Vital Signs: Vital Signs Temp Pulse BP 97.0 F L 86 140/84 H 11/06/21 08:13 11/06/21 08:13 11/06/21 08:13 Physical Exam Const oriented x3 General Appearance: cooperative Exam Limitations: no limitations HEENT normocephalic Head and Scalp: normal to inspection Face and Sinus: normal facial exam Nose: external nose normal General Ear: hearing grossly impaired External Ear: external ears normal Mouth: oral and palatal mucosa normal Eyes PERRL General Eye: normal appearance of both eyes Neck full ROM General: normal visual inspection Resp normal respiratory effort Effort and Inspection: able to speak in complete sentences Auscultation: clear to auscultation bilaterally Cardio regular rate and regular rhythm Palpation: normal PMI Rate: regular rate Rhythm: regular rhythm GI Auscultation: normoactive bowel sounds Palpation: soft and no hepatosplenomegaly external exam normal Back/Spine Cervical Spine: cervical ROM normal Thoracic Spine / Upper Back: normal to inspection Lumbar Spine / Lower Back: normal to inspection Extremity normal to inspection General Extremity: normal exam except as noted Skin no rashes or lesions noted Neuro oriented x3 Psych Appearance: grossly normal Speech: normal speech Thought Content: normal thought content Judgement: judgement good Debridement Note Debridement Note Wound debrided: Left second toe diabetic foot ulcer Wound Grade/Stage: Soler 2 Type of Debridement: Excisional debridement Anesthesia Used: 5% Lidocaine Gel Depth: Down to and including healthy tissue Percentage of wound debrided: 100 Instrument Used: 5mm curette Tissue Removed: Fibrin Severity: Fat Layer Exposed (Tendons) Amount of bleeding with debridement: None Bleeding Controlled with: Pressure Patient tolerated procedure: Patient tolerated procedure well Post-Debridement Measurements and Additional Note: Post-Debridement Measurements/Treatment - Nurse 1 - General Ulcer Assessment Start: 11/06/21 08:13 Freq: Status: Active Protocol: AIXA Activity Type Activity Date Activity User E-Sign Co-Sign Detail Recorded Client Recorded Date Recorded By Document 11/06/21 08:13 DYLON [id number] 11/06/21 08:21 DYLON 11/06/21 08:13 DOMINIQUE - Today's Visit Information Type of service Follow-up Visit (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 Any new allergies or adverse reactions No Had a fall/change in ADL's that may No increase risk of falls Signs or symptoms of abuse and/or No neglect since last visit Have you been in the hospital since your Yes last visit? Has dressing in place as prescribed Yes Has compression in place as prescribed N/A Has offloadiing in place as prescribed N/A Experienced any changes in pain level or No management Left Footwear Regular Shoe Right Footwear Regular Shoe Pain Scale: 0-10 Numeric Is Patient Pain Free? Yes - Nurse 1 - General Ulcer Measurement Start: 11/06/21 08:13 Freq: Status: Active Protocol: Activity Type Activity Date Activity User E-Sign Co-Sign Detail Recorded Client Recorded Date Recorded By Document 11/06/21 08:13 DYLON [id number] 11/06/21 08:21 AK 11/06/21 08:13 Wound Center Nurse 1 #2 Left Hallux -Current Size (cm) - Length 0.2 -Current Size (cm) - Width 0.3 -Current Size (cm) - Depth 0.2 -Total Square Cm 0.06 -Exudate Amt Small -Exudate Type Serosanguineous -Wound Margin Distinct, Outline Attached -Granulation Amt None Present (0 %) -Necrosis Amt Large (67-100%) -Necrotic Tissue Type Adherent Slough -Texture (Gricelda-wound Skin Appearance) Assessed, Scarring -Moisture (Gricelda-wound Skin Appearance) No Abnormality, Assessed -Color (Gricelda-wound Skin Appearance) No Abnormality, Assessed -Temperature (Gricelda-wound Skin No Abnormality Appearance) (Pt Warm) -Tenderness on Palpation (Gricelda-wound No Skin Appearance) -Ulcer Cleansing Rinsed/ Irrigated with Saline -Foul Odor after Cleansing No -Anesthetic Used 5% Lidocaine Gel #1 left 2nd toe -Current Size (cm) - Length 0.5 -Current Size (cm) - Width 1.5 -Current Size (cm) - Depth 0.1 -Total Square Cm 0.75 -Exudate Amt Small -Exudate Type Serosanguineous -Wound Margin Distinct, Outline Attached -Necrosis Amt Large (67-100%) -Necrotic Tissue Type Adherent Slough -Texture (Gricelda-wound Skin Appearance) Assessed, Localized Edema ,Scarring -Moisture (Gricelda-wound Skin Appearance) No Abnormality, Assessed -Color (Gricelda-wound Skin Appearance) No Abnormality, Assessed -Temperature (Gricelda-wound Skin No Abnormality Appearance) (Pt Warm) -Tenderness on Palpation (Gricelda-wound No Skin Appearance) -Ulcer Cleansing Rinsed/ Irrigated with Saline -Foul Odor after Cleansing No -Anesthetic Used 5% Lidocaine Gel WC - Nurse 2 - General Ulcer CM Notes Start: 11/06/21 08:13 Freq: Status: Active Protocol: Activity Type Activity Date Activity User E-Sign Co-Sign Detail Recorded Client Recorded Date Recorded By Document 11/06/21 08:29 MW [id number] 11/06/21 08:35 MW 11/06/21 08:29 Wound Center Nurse 2 #2 Left Hallux -Time 08:29 -Correct Patient Yes -Correct Side, Site, Position Yes -Correct Procedure Yes -Procedure Performed Yes -Type of Procedure Debridement -Clinical Debridement Subcutaneous -Tissue Removed Subcutaneous -Post Debridement (cm) - Length 0.3 -Post Debridement (cm) - Width 0.3 -Post Debridement (cm) - Depth 0.2 -Total Square (Post) (cm) 0.09 -Area of Debridement (cm) - Length 0.3 -Area of Debridement (cm) - Width 0.3 -Total Square (Area) (cm) 0.09 -Tunneling No -Undermining/Tunneling No -Circular Undermining No -Wound/Ulcer Outcome Not Healed -Ulcer Cleansing Rinsed/ Irrigated with Saline -Foul Odor after Cleansing No -Bioengineered Tissue No -Bleeding Controlled with Pressure -Treatment Response Procedure Tolerated Well -Offloading No -Debridement - Subq, 1st 20sq cm Yes #1 left 2nd toe -Time 08:29 -Correct Patient Yes -Correct Side, Site, Position Yes -Correct Procedure Yes -Procedure Performed Yes -Type of Procedure Debridement -Clinical Debridement Subcutaneous -Tissue Removed Subcutaneous -Post Debridement (cm) - Length 0.3 -Post Debridement (cm) - Width 1.0 -Post Debridement (cm) - Depth 0.1 -Total Square (Post) (cm) 0.30 -Area of Debridement (cm) - Length 0.3 -Area of Debridement (cm) - Width 1.0 -Total Square (Area) (cm) 0.30 -Tunneling No -Undermining/Tunneling No -Circular Undermining No -Wound/Ulcer Outcome Not Healed -Ulcer Cleansing Rinsed/ Irrigated with Saline -Foul Odor after Cleansing No -Bioengineered Tissue No -Bleeding Controlled with Pressure -Treatment Response Procedure Tolerated Well -Offloading No -Debridement - Subq, 1st 20sq cm No Pain Scale: 0-10 Numeric Is Patient Pain Free? Yes WC - Nurse 3 - General Ulcer D/C NN Start: 11/06/21 08:13 Freq: Status: Active Protocol: Activity Type Activity Date Activity User E-Sign Co-Sign Detail Recorded Client Recorded Date Recorded By Document 11/06/21 08:44 DYLON [id number] 11/06/21 08:45 DYLON 11/06/21 08:44 Wound Care Nurse 3 #2 Left Hallux -Ulcer Cleansing Rinsed/ Irrigated with Saline -Foul Odor after Cleansing No -Negative Pressure Wound Therapy N/A -Primary Dressing Applied Aquacel Extra -Primary Dressing Covered/Secured with Dry Gauze, Secured with Tape -Aquacel Extra 1 #1 left 2nd toe -Ulcer Cleansing Rinsed/ Irrigated with Saline -Foul Odor after Cleansing No -Negative Pressure Wound Therapy N/A -Primary Dressing Applied Aquacel Extra -Primary Dressing Covered/Secured with Dry Gauze, Secured with Tape -Aquacel Extra 0 Pain Scale: 0-10 Numeric Is Patient Pain Free? Yes WC - Visit Discharge Discharge Condition Stable Ambulatory Status Ambulatory Transportation Private Auto Medication Reconcilliation completed & Yes provided to patient/care provider Clinical Summary of Care Provided Yes Additional Wound Wound debrided: Left hallux Laterality: Left Wound Grade/Stage: DFU Type of Debridement: Excisional debridement Anesthesia Used: 5% Lidocaine Gel Depth: Down to and including healthy tissue Percentage of wound debrided: 100 Instrument Used: 5mm curette Tissue Removed: Fibrin Severity: Fat Layer Exposed Amount of bleeding with debridement: Mild Bleeding Controlled with: Pressure Patient tolerated procedure: Patient tolerated procedure well Assessment/Plan Assessment/Plan (1) Uncontrolled type 2 diabetes mellitus with hyperglycemia: CODE(S): E11.65 - Type 2 diabetes mellitus with hyperglycemia (2) Diabetic foot ulcer associated with type 2 diabetes mellitus: CODE(S): E11.621 - Type 2 diabetes mellitus with foot ulcer; L97.509 - Non-pressure chronic ulcer of other part of unspecified foot with unspecified severity QUALIFIERS: Diabetic foot ulcer location: toe Laterality: left Non-pressure ulcer stage: unspecified non-pressure ulcer stage Qualified Code(s): E11.621 - Type 2 diabetes mellitus with foot ulcer; L97.529 - Non- pressure chronic ulcer of other part of left foot with unspecified severity PLAN: Wash left foot and in between toes with antibacterial soap. Aquacel's cell to wound base at left hallux and left second toe moistened. Cover with gauze and tape daily Cultures obtained will call with results Stop all other dressing changes Follow-up in 1 week (3) Open wound of foot: CODE(S): S91.309A - Unspecified open wound, unspecified foot, initial encounter QUALIFIERS: Encounter type: initial encounter Laterality: left Qualified Code(s): S91.302A - Unspecified open wound, left foot, initial encounter (4) Nonhealing nonsurgical wound: CODE(S): T14.8XXA - Other injury of unspecified body region, initial encounter
[2021-11-13 08:06] VITALS: BP 117/79; PULSE 84; RESP 16; TEMP 36.2
--- NOTE | 2021-11-13 09:06 | PCM.WC.PN ---
History of Present Illness Date of Service: 11/13/21 Chief Complaint: Follow-up left second toe and left hallux History of Wound: 65-year-old white male with type 2 diabetes semi well-controlled. He appears to have Charcot of the right foot and a collapsed right arch. Appears with a nonhealing wound to his left second toe under the nail dorsal side and cellulitis to the whole toe. Also back in June developed a blister while on vacation wearing different shoes on the left hallux, that still has not closed and is a small open area full-thickness. Progress of Wound: X-ray came back showing just some arthritis in the joints and labs came back + for any infection. Cultures were positive and started on antibiotics this past week. The left second toe shows some improvement but the redness is more focal now to circumferential to wound. Patient states swelling is much better. The nail-bed above the wound is mushy and soft suggested we started him on fluconazole for a month and see if that would help. We will switch off from Aquacel extra to Promogran for both areas of the under the toe and on the left hallux area. The hallux area has a thick layer skin on the bottom half but has not filled in well. Subjective Subjective Patient states there is less swelling and less pain. Objective Data Objective Data As above the medications are working for his infection and swelling is better we will try Diflucan for his fungal infection in his toenails and see if that helps with the wound area also. We will switch up his product from Aquacel extra to Promogran daily dressings. Vital Signs: Vital Signs Temp Pulse Resp BP 97.1 F L 84 16 117/79 11/13/21 08:06 11/13/21 08:06 11/13/21 08:06 11/13/21 08:06 Oxygen Delivery Method Room Air Lab / Micro Data Attestation: I reviewed the patient's lab results. Physical Exam Const oriented x3 General Appearance: cooperative Exam Limitations: no limitations HEENT normocephalic Head and Scalp: normal to inspection Face and Sinus: normal facial exam Nose: external nose normal General Ear: hearing grossly impaired External Ear: external ears normal Mouth: oral and palatal mucosa normal Eyes PERRL General Eye: normal appearance of both eyes Neck full ROM General: normal visual inspection Resp normal respiratory effort Effort and Inspection: able to speak in complete sentences Auscultation: clear to auscultation bilaterally Cardio regular rate and regular rhythm Palpation: normal PMI Rate: regular rate Rhythm: regular rhythm GI Auscultation: normoactive bowel sounds Palpation: soft and no hepatosplenomegaly external exam normal Back/Spine Cervical Spine: cervical ROM normal Thoracic Spine / Upper Back: normal to inspection Lumbar Spine / Lower Back: normal to inspection Extremity normal to inspection General Extremity: normal exam except as noted Skin no rashes or lesions noted Neuro oriented x3 Psych Appearance: grossly normal Speech: normal speech Thought Content: normal thought content Judgement: judgement good Debridement Note Debridement Note Wound debrided: Left second toe diabetic foot ulcer Type of Debridement: Excisional debridement Anesthesia Used: 5% Lidocaine Gel Depth: Down to and including healthy tissue Percentage of wound debrided: 100 Instrument Used: 3mm curette Tissue Removed: Fibrin and devitalized tissue Severity: Limited To Skin Breakdown Amount of bleeding with debridement: None Bleeding Controlled with: Pressure Patient tolerated procedure: Patient tolerated procedure well Post-Debridement Measurements and Additional Note: Post-Debridement Measurements/Treatment - Nurse 1 - General Ulcer Assessment Start: 11/06/21 08:13 Freq: Status: Active Protocol: DOMINIQUE.HUSSEINT Activity Type Activity Date Activity User E-Sign Co-Sign Detail Recorded Client Recorded Date Recorded By Document 11/06/21 08:13 ME [id number] 11/06/21 08:21 ME Document 11/13/21 08:06 [facility] [id number] 11/13/21 08:09 [facility] 11/06/21 11/13/21 08:13 08:06 - Today's Visit Information Type of service Follow-up Visit Follow-up Visit (Physician/PROGRAM DIRECTOR/MORNING SHOW HOST (Physician/PROGRAM DIRECTOR/MORNING SHOW HOST ) ) Arrival Mode Ambulatory Ambulatory Transfer Assistance None Patient Identification Verified (Name & Yes Yes ) Patient Requires Transmission-Based No No Precautions Safety Precautions NA Vital Signs Temperature (97.8 F-99.1 F) 97.0 F L 97.1 F L Temperature Source Temporal Temporal Pulse Rate (60-100) 86 84 Pulse Location Monitor Monitor Respiratory Rate (12-18) 16 Respiratory rate source Observation Oxygen Delivery Method Room Air Blood Pressure (90/60-120/80) 140/84 H 117/79 Blood Pressure Mean (mm Hg) 102 91 Source Monitor Monitor Position Sitting Sitting Blood Pressure Location Left Arm Left Arm History Since Last Visit- (Skip if this is Patient's initial visit) Have you changed medications since your No No last visit? Any new allergies or adverse reactions No Had a fall/change in ADL's that may No No increase risk of falls Signs or symptoms of abuse and/or No No neglect since last visit Have you been in the hospital since your Yes No last visit? Has dressing in place as prescribed Yes Yes Has compression in place as prescribed N/A N/A Has offloadiing in place as prescribed N/A N/A Experienced any changes in pain level or No Yes management Left Footwear Regular Shoe Regular Shoe Right Footwear Regular Shoe Regular Shoe Pain Scale: 0-10 Numeric Is Patient Pain Free? Yes Yes WC - Nurse 1 - General Ulcer Measurement Start: 11/06/21 08:13 Freq: Status: Active Protocol: Activity Type Activity Date Activity User E-Sign Co-Sign Detail Recorded Client Recorded Date Recorded By Document 11/06/21 08:13 ME [id number] 11/06/21 08:21 [place] Document 11/13/21 08:06 [facility] [id number] 11/13/21 08:09 [facility] 11/06/21 11/13/21 08:13 08:06 Wound Center Nurse 1 #2 Left Hallux -Combined with other wound No -Current Size (cm) - Length 0.2 0.3 -Current Size (cm) - Width 0.3 0.3 -Current Size (cm) - Depth 0.2 0.2 -Total Square Cm 0.06 0.09 -Date of Last Picture (Recall this 11/13/21 field) -Photo Taken Yes -Epithelialization None Present -Tunneling No -Undermining/Tunneling No -Circular Undermining No -Exudate Amt Small Small -Exudate Type Serosanguineous Serous -Wound Margin Distinct, Distinct, Outline Outline Attached Attached -Granulation Amt None Present (0 Large (67-100%) %) -Granulation Quality [place] -Slough/Fibrin Yes -Necrosis Amt Large (67-100%) Small (1-33%) -Necrotic Tissue Type Adherent Slough Adherent Slough -Texture (Gricelda-wound Skin Appearance) Assessed, Assessed Scarring -Moisture (Gricelda-wound Skin Appearance) No Abnormality, Assessed, Assessed Maceration -Color (Gricelda-wound Skin Appearance) No Abnormality, Assessed,Palor Assessed -Temperature (Gricelda-wound Skin No Abnormality No Abnormality Appearance) (Pt Warm) (Pt Warm) -Tenderness on Palpation (Gricelda-wound No No Skin Appearance) -Ulcer Cleansing Rinsed/ Rinsed/ Irrigated with Irrigated with Saline Saline -Foul Odor after Cleansing No No -Anesthetic Used 5% Lidocaine 5% Lidocaine Gel Gel #1 left 2nd toe -Combined with other wound No -Current Size (cm) - Length 0.5 0.4 -Current Size (cm) - Width 1.5 1.2 -Current Size (cm) - Depth 0.1 0.2 -Total Square Cm 0.75 0.48 -Date of Last Picture (Recall this 11/13/21 field) -Photo Taken Yes -Epithelialization None Present -Tunneling No -Undermining/Tunneling No -Circular Undermining No -Exudate Amt Small Small -Exudate Type Serosanguineous Serous -Wound Margin Distinct, Distinct, Outline Outline Attached Attached -Granulation Amt Small (1-33%) -Granulation Quality [place] -Slough/Fibrin Yes -Necrosis Amt Large (67-100%) Large (67-100%) -Necrotic Tissue Type Adherent Slough Adherent Slough -Texture (Gricelda-wound Skin Appearance) Assessed, Assessed Localized Edema ,Scarring -Moisture (Gricelda-wound Skin Appearance) No Abnormality, Assessed, Assessed Maceration -Color (Gricelda-wound Skin Appearance) No Abnormality, Assessed, Assessed Erythema,Palor -Temperature ([place]ricelda-wound Skin No Abnormality No Abnormality Appearance) (Pt Warm) (Pt Warm) -Tenderness on Palpation (Gricelda-wound No No Skin Appearance) -Ulcer Cleansing Rinsed/ Rinsed/ Irrigated with Irrigated with Saline Saline -Foul Odor after Cleansing No No -Anesthetic Used 5% Lidocaine 5% Lidocaine Gel Gel WC - Nurse 2 - General Ulcer CM Notes Start: 11/06/21 08:13 Freq: Status: Active Protocol: Activity Type Activity Date Activity User E-Sign Co-Sign Detail Recorded Client Recorded Date Recorded By Document 11/06/21 08:29 MW [id number] 11/06/21 08:35 MW Document 11/13/21 08:13 MW [id number] 11/13/21 08:18 MW 11/06/21 11/13/21 08:29 08:13 Wound Center Nurse 2 #2 Left Hallux -Time 08: 08:13 -Correct Patient Yes Yes -Correct Side, Site, Position Yes Yes -Correct Procedure Yes Yes -Procedure Performed Yes Yes -Type of Procedure Debridement Debridement -Clinical Debridement Subcutaneous Subcutaneous -Tissue Removed Subcutaneous Subcutaneous -Post Debridement (cm) - Length 0.3 0.4 -Post Debridement (cm) - Width 0.3 0.4 -Post Debridement (cm) - Depth 0.2 0.2 -Total Square (Post) (cm) 0.09 0.16 -Area of Debridement (cm) - Length 0.3 0.4 -Area of Debridement (cm) - Width 0.3 0.4 -Total Square (Area) (cm) 0.09 0.16 -Tunneling No No -Undermining/Tunneling No No -Circular Undermining No No -Wound/Ulcer Outcome Not Healed Not Healed -Ulcer Cleansing Rinsed/ Rinsed/ Irrigated with Irrigated with Saline Saline -Foul Odor after Cleansing No No -Bioengineered Tissue No No -Bleeding Controlled with Pressure Pressure -Treatment Response Procedure Procedure Tolerated Well Tolerated Well -Offloading No No -Debridement - Subq, 1st 20sq cm Yes Yes #1 left 2nd toe -Time 08: 08:13 -Correct Patient Yes Yes -Correct Side, Site, Position Yes Yes -Correct Procedure Yes Yes -Procedure Performed Yes Yes -Type of Procedure Debridement Debridement -Clinical Debridement Subcutaneous Subcutaneous -Tissue Removed Subcutaneous Subcutaneous -Post Debridement (cm) - Length 0.3 0.5 -Post Debridement (cm) - Width 1.0 1.7 -Post Debridement (cm) - Depth 0.1 0.2 -Total Square (Post) (cm) 0.30 0.85 -Area of Debridement (cm) - Length 0.3 0.5 -Area of Debridement (cm) - Width 1.0 1.7 -Total Square (Area) (cm) 0.30 0.85 -Tunneling No No -Undermining/Tunneling No No -Circular Undermining No No -Wound/Ulcer Outcome Not Healed Not Healed -Ulcer Cleansing Rinsed/ Rinsed/ Irrigated with Irrigated with Saline Saline -Foul Odor after Cleansing No No -Bioengineered Tissue No No -Bleeding Controlled with Pressure Pressure -Treatment Response Procedure Procedure Tolerated Well Tolerated Well -Offloading No No -Debridement - Subq, 1st 20sq cm No No Pain Scale: 0-10 Numeric Is Patient Pain Free? Yes Yes - Nurse 3 - General Ulcer D/C NN Start: 11/06/21 08:13 Freq: Status: Active Protocol: Activity Type Activity Date Activity User E-Sign Co-Sign Detail Recorded Client Recorded Date Recorded By Document 11/06/21 08:44 DYLON [id number] 11/06/21 08:45 DYLON 11/06/21 08:44 Wound Care Nurse 3 #2 Left Hallux -Ulcer Cleansing Rinsed/ Irrigated with Saline -Foul Odor after Cleansing No -Negative Pressure Wound Therapy N/A -Primary Dressing Applied Aquacel Extra -Primary Dressing Covered/Secured with Dry Gauze, Secured with Tape -Aquacel Extra 1 #1 left 2nd toe -Ulcer Cleansing Rinsed/ Irrigated with Saline -Foul Odor after Cleansing No -Negative Pressure Wound Therapy N/A -Primary Dressing Applied Aquacel Extra -Primary Dressing Covered/Secured with Dry Gauze, Secured with Tape -Aquacel Extra 0 Pain Scale: 0-10 Numeric Is Patient Pain Free? Yes WC - Visit Discharge Discharge Condition Stable Ambulatory Status Ambulatory Transportation Private Auto Medication Reconcilliation completed & Yes provided to patient/care provider Clinical Summary of Care Provided Yes Additional Wound Wound debrided: Left hallux Wound Grade/Stage: DFU Soler 2 Type of Debridement: Excisional debridement Anesthesia Used: 5% Lidocaine Gel Depth: Down to and including healthy tissue Percentage of wound debrided: 100 Instrument Used: 3mm curette Tissue Removed: Fibrin Assessment/Plan Assessment/Plan (1) Uncontrolled type 2 diabetes mellitus with hyperglycemia: CODE(S): E11.65 - Type 2 diabetes mellitus with hyperglycemia (2) Diabetic foot ulcer associated with type 2 diabetes mellitus: CODE(S): E11.621 - Type 2 diabetes mellitus with foot ulcer; L97.509 - Non-pressure chronic ulcer of other part of unspecified foot with unspecified severity QUALIFIERS: Diabetic foot ulcer location: toe Laterality: left Non-pressure ulcer stage: unspecified non-pressure ulcer stage Qualified Code(s): E11.621 - Type 2 diabetes mellitus with foot ulcer; L97.529 - Non-pressure chronic ulcer of other part of left foot with unspecified severity PLAN: Wash left foot and in between toes with antibacterial soap. Promogran to wound base cover with Adaptic at left hallux and left second toe moistened. Cover with gauze and tape daily Finish the antibiotics Take fluconazole 100 mg 1 p.o. daily for 30 days Follow-up in 1 week (3) Open wound of foot: CODE(S): S91.309A - Unspecified open wound, unspecified foot, initial encounter QUALIFIERS: Encounter type: initial encounter Laterality: left Qualified Code(s): S91.302A - Unspecified open wound, left foot, initial encounter (4) Nonhealing nonsurgical wound: CODE(S): T14.8XXA - Other injury of unspecified body region, initial encounter
[2021-11-20 08:11] VITALS: BP 134/80; PULSE 67; TEMP 35.8
--- NOTE | 2021-11-20 08:56 | PN.PCM_ITS ---
History of Present Illness Date of Service: 11/20/21 Chief Complaint: Follow-up left second toe and left hallux History of Wound: 65-year-old white male with type 2 diabetes semi well- controlled. He appears to have Charcot of the right foot and a collapsed right arch. Appears with a nonhealing wound to his left second toe under the nail dorsal side and cellulitis to the whole toe. Also back in June developed a blister while on vacation wearing different shoes on the left hallux, that still has not closed and is a small open area full-thickness. Progress of Wound: X-ray came back showing just some arthritis in the joints and labs came back + for any infection. Cultures were positive and started on antibiotics this past week. The left second toe shows some improvement but the redness is more focal now to circumferential to wound. Patient states swelling is much better. The nail-bed above the wound is mushy and soft suggested we started him on fluconazole for a month and see if that would help. We will switch off from Aquacel extra to Promogran for both areas of the under the toe and on the left hallux area. The hallux area has a thick layer skin on the bottom half but has not filled in well. Today he has shown some maceration around the left hallux and will stop using the Adaptic and only use Promogran. Measurements are smaller does show improvement patient seems to be happier. Still question if should be getting a MRI. Subjective Subjective No concerns at this time Objective Data Objective Data As written above note. Patient doing well measurements are better not quite sure if the redness is going to be a problem even though his x-rays are negative I am still considering getting an MRI of the foot. Vital Signs: Vital Signs Temp Pulse Resp BP 96.5 F L 67 16 134/80 H 11/20/21 08:11 11/20/21 08:11 11/13/21 08:06 11/20/21 08:11 Oxygen Delivery Method Room Air Lab / Micro Data Attestation: I reviewed the patient's lab results. Physical Exam Const oriented x3 General Appearance: cooperative Exam Limitations: no limitations HEENT normocephalic Head and Scalp: normal to inspection Face and Sinus: normal facial exam Nose: external nose normal General Ear: hearing grossly impaired External Ear: external ears normal Mouth: oral and palatal mucosa normal Eyes PERRL General Eye: normal appearance of both eyes Neck full ROM General: normal visual inspection Resp normal respiratory effort Effort and Inspection: able to speak in complete sentences Auscultation: clear to auscultation bilaterally Cardio regular rate and regular rhythm Palpation: normal PMI Rate: regular rate Rhythm: regular rhythm GI Auscultation: normoactive bowel sounds Palpation: soft and no hepatosplenomegaly external exam normal Back/Spine Cervical Spine: cervical ROM normal Thoracic Spine / Upper Back: normal to inspection Lumbar Spine / Lower Back: normal to inspection Extremity normal to inspection General Extremity: normal exam except as noted Skin no rashes or lesions noted Neuro oriented x3 Psych Appearance: grossly normal Speech: normal speech Thought Content: normal thought content Judgement: judgement good Debridement Note Debridement Note Wound debrided: Left second toe diabetic foot ulcer Laterality: Left Wound Grade/Stage: Stage III Type of Debridement: Excisional debridement Anesthesia Used: 5% Lidocaine Gel Depth: Down to and including healthy tissue Percentage of wound debrided: 100 Instrument Used: 3mm curette Tissue Removed: Fibrin and devitalized tissue Severity: Fat Layer Exposed (Tendon still open) Amount of bleeding with debridement: None Bleeding Controlled with: Pressure Patient tolerated procedure: Patient tolerated procedure well Post-Debridement Measurements and Additional Note: Post-Debridement Measurements/Treatment - Nurse 1 - General Ulcer Assessment Start: 11/06/21 08:13 Freq: Status: Active Protocol: AIXA Activity Type Activity Date Activity User E-Sign Co-Sign Detail Recorded Client Recorded Date Recorded By Document 11/06/21 08:13 AK [id number] 11/06/21 08:21 AK Document 11/13/21 08:06 [facility] [id number] 11/13/21 08:09 [facility] Document 11/20/21 08:11 KR [id number] 11/20/21 08:16 KR 11/06/21 11/13/21 11/20/21 08:13 08:06 08:11 - Today's Visit Information Type of service Follow-up Visit Follow-up Visit Follow-up Visit (Physician/VICE PRESIDENT OF PRODUCT MARKETING (Physician/VICE PRESIDENT OF PRODUCT MARKETING (Physician/VICE PRESIDENT OF PRODUCT MARKETING ) ) ) Arrival Mode Ambulatory Ambulatory Ambulatory Transfer Assistance None Patient Identification Verified (Name & Yes Yes Yes ) Patient Requires Transmission-Based No No Precautions Safety Precautions NA Vital Signs Temperature (97.8 F-99.1 F) 97.0 F L 97.1 F L 96.5 F L Temperature Source Temporal Temporal Temporal Pulse Rate (60-100) 86 84 67 Pulse Location Monitor Monitor Monitor Respiratory Rate (12-18) 16 Respiratory rate source Observation Oxygen Delivery Method Room Air Blood Pressure (90/60-120/80) 140/84 H 117/79 134/80 H Blood Pressure Mean (mm Hg) 102 91 98 Source Monitor Monitor Monitor Position Sitting Sitting Sitting Blood Pressure Location Left Arm Left Arm Left Arm History Since Last Visit- (Skip if this is Patient's initial visit) Have you changed medications since your No No No last visit? Any new allergies or adverse reactions No No Had a fall/change in ADL's that may No No No increase risk of falls Signs or symptoms of abuse and/or No No No neglect since last visit Have you been in the hospital since your Yes No No last visit? Has dressing in place as prescribed Yes Yes Yes Has compression in place as prescribed N/A N/A N/A Has offloadiing in place as prescribed N/A N/A N/A Experienced any changes in pain level or No Yes No management Left Footwear Regular Shoe Regular Shoe Regular Shoe Right Footwear Regular Shoe Regular Shoe Regular Shoe Pain Scale: 0-10 Numeric Is Patient Pain Free? Yes Yes Yes WC - Nurse 1 - General Ulcer Measurement Start: 11/06/21 08:13 Freq: Status: Active Protocol: Activity Type Activity Date Activity User E-Sign Co-Sign Detail Recorded Client Recorded Date Recorded By Document 11/06/21 08:13 AK [id number] 11/06/21 08:21 AK Document 11/13/21 08:06 [facility] [id number] 11/13/21 08:09 BM Document 11/20/21 08:11 KR [id number] 11/20/21 08:16 KR 11/06/21 11/13/21 11/20/21 08:13 08:06 08:11 Wound Center Nurse 1 #2 Left Hallux -Combined with other wound No -Current Size (cm) - Length 0.2 0.3 0.3 -Current Size (cm) - Width 0.3 0.3 0.3 -Current Size (cm) - Depth 0.2 0.2 0.2 -Total Square Cm 0.06 0.09 0.09 -Date of Last Picture (Recall this 11/13/21 field) -Photo Taken Yes -Epithelialization None Present -Tunneling No -Undermining/Tunneling No -Circular Undermining No -Exudate Amt Small Small Small -Exudate Type Serosanguineous Serous Serosanguineous -Wound Margin Distinct, Distinct, Distinct, Outline Outline Outline Attached Attached Attached -Granulation Amt None Present (0 Large (67-100%) None Present (0 %) %) -Granulation Quality Relampago -Slough/Fibrin Yes -Necrosis Amt Large (67-100%) Small (1-33%) Large (67-100%) -Necrotic Tissue Type Adherent Slough Adherent Slough Adherent Slough -Texture (Gricelda-wound Skin Appearance) Assessed, Assessed Assessed, Scarring Scarring -Moisture (Gricelda-wound Skin Appearance) No Abnormality, Assessed, No Abnormality, Assessed Maceration Assessed -Color (Gricelda-wound Skin Appearance) No Abnormality, Assessed,Palor No Abnormality, Assessed Assessed -Temperature (Gricelda-wound Skin No Abnormality No Abnormality No Abnormality Appearance) (Pt Warm) (Pt Warm) (Pt Warm) -Tenderness on Palpation (Gricelda-wound No No No Skin Appearance) -Ulcer Cleansing Rinsed/ Rinsed/ Rinsed/ Irrigated with Irrigated with Irrigated with Saline Saline Saline -Foul Odor after Cleansing No No No -Anesthetic Used 5% Lidocaine 5% Lidocaine 5% Lidocaine Gel Gel Gel #1 left 2nd toe -Combined with other wound No -Current Size (cm) - Length 0.5 0.4 0.5 -Current Size (cm) - Width 1.5 1.2 1.5 -Current Size (cm) - Depth 0.1 0.2 0.2 -Total Square Cm 0.75 0.48 0.75 -Date of Last Picture (Recall this 11/13/21 field) -Photo Taken Yes -Epithelialization None Present -Tunneling No -Undermining/Tunneling No -Circular Undermining No -Exudate Amt Small Small Small -Exudate Type Serosanguineous Serous Serosanguineous -Wound Margin Distinct, Distinct, Distinct, Outline Outline Outline Attached Attached Attached -Granulation Amt Small (1-33%) None Present (0 %) -Granulation Quality Relampago -Slough/Fibrin Yes -Necrosis Amt Large (67-100%) Large (67-100%) Large (67-100%) -Necrotic Tissue Type Adherent Slough Adherent Slough Adherent Slough -Texture (Gricelda-wound Skin Appearance) Assessed, Assessed Assessed, Localized Edema Scarring ,Scarring -Moisture (Gricelda-wound Skin Appearance) No Abnormality, Assessed, No Abnormality, Assessed Maceration Assessed -Color (Gricelda-wound Skin Appearance) No Abnormality, Assessed, No Abnormality, Assessed Erythema,Palor Assessed -Temperature (Gricelda-wound Skin No Abnormality No Abnormality No Abnormality Appearance) (Pt Warm) (Pt Warm) (Pt Warm) -Tenderness on Palpation (Gricelda-wound No No No Skin Appearance) -Ulcer Cleansing Rinsed/ Rinsed/ Rinsed/ Irrigated with Irrigated with Irrigated with Saline Saline Saline -Foul Odor after Cleansing No No No -Anesthetic Used 5% Lidocaine 5% Lidocaine 5% Lidocaine Gel Gel Gel WC - Nurse 2 - General Ulcer CM Notes Start: 11/06/21 08:13 Freq: Status: Active Protocol: Activity Type Activity Date Activity User E-Sign Co-Sign Detail Recorded Client Recorded Date Recorded By Document 11/06/21 08:29 MW [id number] 11/06/21 08:35 MW Document 11/13/21 08:13 MW [id number] 11/13/21 08:18 MW Document 11/20/21 08:24 MW [id number] 11/20/21 08:31 MW 11/06/21 11/13/21 11/20/21 08:29 08:13 08:24 Wound Center Nurse 2 #2 Left Hallux -Time 08:29 08:13 08:25 -Correct Patient Yes Yes Yes -Correct Side, Site, Position Yes Yes Yes -Correct Procedure Yes Yes Yes -Procedure Performed Yes Yes Yes -Type of Procedure Debridement Debridement Debridement -Clinical Debridement Subcutaneous Subcutaneous Subcutaneous -Tissue Removed Subcutaneous Subcutaneous Subcutaneous -Post Debridement (cm) - Length 0.3 0.4 0.4 -Post Debridement (cm) - Width 0.3 0.4 0.3 -Post Debridement (cm) - Depth 0.2 0.2 0.2 -Total Square (Post) (cm) 0.09 0.16 0.12 -Area of Debridement (cm) - Length 0.3 0.4 0.4 -Area of Debridement (cm) - Width 0.3 0.4 0.3 -Total Square (Area) (cm) 0.09 0.16 0.12 -Tunneling No No No -Undermining/Tunneling No No No -Circular Undermining No No No -Wound/Ulcer Outcome Not Healed Not Healed Not Healed -Ulcer Cleansing Rinsed/ Rinsed/ Rinsed/ Irrigated with Irrigated with Irrigated with Saline Saline Saline -Foul Odor after Cleansing No No No -Bioengineered Tissue No No No -Bleeding Controlled with Pressure Pressure Pressure -Treatment Response Procedure Procedure Procedure Tolerated Well Tolerated Well Tolerated Well -Offloading No No No -Debridement - Subq, 1st 20sq cm Yes Yes Yes #1 left 2nd toe -Time 08:29 08:13 08:26 -Correct Patient Yes Yes Yes -Correct Side, Site, Position Yes Yes Yes -Correct Procedure Yes Yes Yes -Procedure Performed Yes Yes Yes -Type of Procedure Debridement Debridement Debridement -Clinical Debridement Subcutaneous Subcutaneous Subcutaneous -Tissue Removed Subcutaneous Subcutaneous Subcutaneous -Post Debridement (cm) - Length 0.3 0.5 0.3 -Post Debridement (cm) - Width 1.0 1.7 1.5 -Post Debridement (cm) - Depth 0.1 0.2 0.2 -Total Square (Post) (cm) 0.30 0.85 0.45 -Area of Debridement (cm) - Length 0.3 0.5 0.3 -Area of Debridement (cm) - Width 1.0 1.7 1.5 -Total Square (Area) (cm) 0.30 0.85 0.45 -Tunneling No No No -Undermining/Tunneling No No No -Circular Undermining No No No -Wound/Ulcer Outcome Not Healed Not Healed Not Healed -Ulcer Cleansing Rinsed/ Rinsed/ Rinsed/ Irrigated with Irrigated with Irrigated with Saline Saline Saline -Foul Odor after Cleansing No No No -Bioengineered Tissue No No No -Bleeding Controlled with Pressure Pressure Pressure -Treatment Response Procedure Procedure Procedure Tolerated Well Tolerated Well Tolerated Well -Offloading No No No -Debridement - Subq, 1st 20sq cm No No No Pain Scale: 0-10 Numeric Is Patient Pain Free? Yes Yes Yes WC - Nurse 3 - General Ulcer D/C NN Start: 11/06/21 08:13 Freq: Status: Active Protocol: Activity Type Activity Date Activity User E-Sign Co-Sign Detail Recorded Client Recorded Date Recorded By Document 11/06/21 08:44 AK [id number] 11/06/21 08:45 AK Document 11/20/21 08:35 KR [id number] 11/20/21 08:35 KR 11/06/21 11/20/21 08:44 08:35 Wound Care Nurse 3 #2 Left Hallux -Ulcer Cleansing Rinsed/ Rinsed/ Irrigated with Irrigated with Saline Saline -Foul Odor after Cleansing No -Negative Pressure Wound Therapy N/A -Primary Dressing Applied Aquacel Extra Promogran Zohreh Matter -Primary Dressing Covered/Secured with Dry Gauze, Dry Gauze, Secured with Secured with Tape Tape -Aquacel Extra 1 -Promogran Zohreh Matter 1 #1 left 2nd toe -Ulcer Cleansing Rinsed/ Rinsed/ Irrigated with Irrigated with Saline Saline -Foul Odor after Cleansing No -Negative Pressure Wound Therapy N/A -Primary Dressing Applied Aquacel Extra -Primary Dressing Covered/Secured with Dry Gauze, Dry Gauze, Secured with Secured with Tape Tape -Aquacel Extra 0 Pain Scale: 0-10 Numeric Is Patient Pain Free? Yes Yes WC - Visit Discharge Discharge Condition Stable Stable Ambulatory Status Ambulatory Ambulatory Transportation Private Auto Private Auto Medication Reconcilliation completed & Yes provided to patient/care provider Clinical Summary of Care Provided Yes Additional Wound Wound debrided: Left hallux DFU Type of Debridement: Excisional debridement Anesthesia Used: 5% Lidocaine Gel Depth: Down to and including healthy tissue Percentage of wound debrided: 100 Instrument Used: 3mm curette Severity: Fat Layer Exposed Amount of bleeding with debridement: None Bleeding Controlled with: Pressure Patient tolerated procedure: Patient tolerated procedure well Assessment/Plan Assessment/Plan (1) Uncontrolled type 2 diabetes mellitus with hyperglycemia: CODE(S): E11.65 - Type 2 diabetes mellitus with hyperglycemia (2) Diabetic foot ulcer associated with type 2 diabetes mellitus: CODE(S): E11.621 - Type 2 diabetes mellitus with foot ulcer; L97.509 - Non-pressure chronic ulcer of other part of unspecified foot with unspecified severity QUALIFIERS: Diabetic foot ulcer location: toe Laterality: left Non-pressure ulcer stage: unspecified non-pressure ulcer stage Qualified Code(s): E11.621 - Type 2 diabetes mellitus with foot ulcer; L97.529 - Non- pressure chronic ulcer of other part of left foot with unspecified severity PLAN: Wash left foot and in between toes with antibacterial soap. Promogran to wound base at left hallux and left second toe moistened. Cover with gauze and tape daily Continue taking fluconazole 100 mg 1 p.o. daily for 30 days Follow-up in 1 week (3) Open wound of foot: CODE(S): S91.309A - Unspecified open wound, unspecified foot, initial encounter QUALIFIERS: Encounter type: initial encounter Laterality: left Qualified Code(s): S91.302A - Unspecified open wound, left foot, initial encounter (4) Nonhealing nonsurgical wound: CODE(S): T14.8XXA - Other injury of unspecified body region, initial encounter
[2021-11-27 08:08] VITALS: BP 126/82; PULSE 82; TEMP 36.4
--- NOTE | 2021-11-27 08:55 | PCM.WC.PN ---
History of Present Illness Date of Service: 11/27/21 Chief Complaint: Follow-up left second toe and left hallux History of Wound: 65-year-old white male with type 2 diabetes semi well-controlled. He appears to have Charcot of the right foot and a collapsed right arch. Appears with a nonhealing wound to his left second toe under the nail dorsal side and cellulitis to the whole toe. Also back in June developed a blister while on vacation wearing different shoes on the left hallux, that still has not closed and is a small open area full-thickness. Progress of Wound: X-ray came back showing just some arthritis in the joints and labs came back + for any infection. Cultures were positive and started on antibiotics this past week. The left second toe shows some improvement but the redness is more focal now to circumferential to wound. Patient states swelling is much better. The nail-bed above the wound is mushy and soft suggested we started him on fluconazole for a month and see if that would help. We will switch off from Aquacel extra to Promogran for both areas of the under the toe and on the left hallux area. The hallux area has a thick layer skin on the bottom half but has not filled in well. Today both wounds are improving less maceration measurements are about the same but look face cleaner we will continue with Promogran for now Subjective Subjective Patient is doing better with pain and tolerating the fluconazole well Objective Data Objective Data Stated above and progress notes and taking fluconazole doing well on it slightly less redness on this second toe. Slight improvement on everything but the skin tone looks better Vital Signs: Vital Signs Temp Pulse Resp BP 97.6 F L 82 16 126/82 H 11/27/21 08:08 11/27/21 08:08 11/13/21 08:06 11/27/21 08:08 Oxygen Delivery Method Room Air Physical Exam Const oriented x3 General Appearance: cooperative Exam Limitations: no limitations HEENT normocephalic Head and Scalp: normal to inspection Face and Sinus: normal facial exam Nose: external nose normal General Ear: hearing grossly impaired External Ear: external ears normal Mouth: oral and palatal mucosa normal Eyes PERRL General Eye: normal appearance of both eyes Neck full ROM General: normal visual inspection Resp normal respiratory effort Effort and Inspection: able to speak in complete sentences Auscultation: clear to auscultation bilaterally Cardio regular rate and regular rhythm Palpation: normal PMI Rate: regular rate Rhythm: regular rhythm GI Auscultation: normoactive bowel sounds Palpation: soft and no hepatosplenomegaly external exam normal Back/Spine Cervical Spine: cervical ROM normal Thoracic Spine / Upper Back: normal to inspection Lumbar Spine / Lower Back: normal to inspection Extremity normal to inspection General Extremity: normal exam except as noted Skin no rashes or lesions noted Neuro oriented x3 Psych Appearance: grossly normal Speech: normal speech Thought Content: normal thought content Judgement: judgement good Debridement Note Debridement Note Wound debrided: Left hallux Wound Grade/Stage: Stage II Type of Debridement: Excisional debridement Anesthesia Used: 5% Lidocaine Gel Depth: Down to and including healthy tissue Percentage of wound debrided: 100 Instrument Used: 3mm curette Tissue Removed: Fibrin Severity: Limited To Skin Breakdown Amount of bleeding with debridement: None Bleeding Controlled with: Compression and gauze Patient tolerated procedure: Patient tolerated procedure well Post-Debridement Measurements and Additional Note: Post-Debridement Measurements/Treatment - Nurse 1 - General Ulcer Assessment Start: 11/06/21 08:13 Freq: Status: Active Protocol: AIXA Activity Type Activity Date Activity User E-Sign Co-Sign Detail Recorded Client Recorded Date Recorded By Document 11/06/21 08:13 MO [id number] 11/06/21 08:21 AK Document 11/13/21 08:06 [facility] [id number] 11/13/21 08:09 [facility] Document 11/20/21 08:11 KR [id number] 11/20/21 08:16 KR Document 11/27/21 08:08 KR [id number] 11/27/21 08:11 KR 11/06/21 11/13/21 11/20/21 08:13 08:06 08:11 - Today's Visit Information Type of service Follow-up Visit Follow-up Visit Follow-up Visit (Physician/ANIMAL RIDES MANAGER (Physician/ANIMAL RIDES MANAGER (Physician/ANIMAL RIDES MANAGER ) ) ) Arrival Mode Ambulatory Ambulatory Ambulatory Transfer Assistance None Patient Identification Verified (Name & Yes Yes Yes ) Patient Requires Transmission-Based No No Precautions Safety Precautions NA Vital Signs Temperature (97.8 F-99.1 F) 97.0 F L 97.1 F L 96.5 F L Temperature Source Temporal Temporal Temporal Pulse Rate (60-100) 86 84 67 Pulse Location Monitor Monitor Monitor Respiratory Rate (12-18) 16 Respiratory rate source Observation Oxygen Delivery Method Room Air Blood Pressure (90/60-120/80) 140/84 H 117/79 134/80 H Blood Pressure Mean (mm Hg) 102 91 98 Source Monitor Monitor Monitor Position Sitting Sitting Sitting Blood Pressure Location Left Arm Left Arm Left Arm History Since Last Visit- (Skip if this is Patient's initial visit) Have you changed medications since your No No No last visit? Any new allergies or adverse reactions No No Had a fall/change in ADL's that may No No No increase risk of falls Signs or symptoms of abuse and/or No No No neglect since last visit Have you been in the hospital since your Yes No No last visit? Has dressing in place as prescribed Yes Yes Yes Has compression in place as prescribed N/A N/A N/A Has offloadiing in place as prescribed N/A N/A N/A Experienced any changes in pain level or No Yes No management Left Footwear Regular Shoe Regular Shoe Regular Shoe Right Footwear Regular Shoe Regular Shoe Regular Shoe Pain Scale: 0-10 Numeric Is Patient Pain Free? Yes Yes Yes 11/27/21 08:08 WC - Today's Visit Information Type of service Follow-up Visit (Physician/ANIMAL RIDES MANAGER ) Arrival Mode Ambulatory Transfer Assistance Patient Identification Verified (Name & Yes ) Patient Requires Transmission-Based Precautions Safety Precautions Vital Signs Temperature (97.8 F-99.1 F) 97.6 F L Temperature Source Temporal Pulse Rate (60-100) 82 Pulse Location Monitor Respiratory Rate (12-18) Respiratory rate source Oxygen Delivery Method Blood Pressure (90/60-120/80) 126/82 H Blood Pressure Mean (mm Hg) 96 Source Monitor Position Sitting Blood Pressure Location Right Arm History Since Last Visit- (Skip if this is Patient's initial visit) Have you changed medications since your No last visit? Any new allergies or adverse reactions No Had a fall/change in ADL's that may No increase risk of falls Signs or symptoms of abuse and/or No neglect since last visit Have you been in the hospital since your No last visit? Has dressing in place as prescribed Yes Has compression in place as prescribed N/A Has offloadiing in place as prescribed N/A Experienced any changes in pain level or No management Left Footwear Regular Shoe Right Footwear Regular Shoe Pain Scale: 0-10 Numeric Is Patient Pain Free? Yes WC - Nurse 1 - General Ulcer Measurement Start: 11/06/21 08:13 Freq: Status: Active Protocol: Activity Type Activity Date Activity User E-Sign Co-Sign Detail Recorded Client Recorded Date Recorded By Document 11/06/21 08:13 AK [id number] 11/06/21 08:21 AK Document 11/13/21 08:06 BMF [id number] 11/13/21 08:09 BMF Document 11/20/21 08:11 KR [id number] 11/20/21 08:16 KR Document 11/27/21 08:08 KR [id number] 11/27/21 08:11 KR 11/06/21 11/13/21 11/20/21 08:13 08:06 08:11 Wound Center Nurse 1 #2 Left Hallux -Combined with other wound No -Current Size (cm) - Length 0.2 0.3 0.3 -Current Size (cm) - Width 0.3 0.3 0.3 -Current Size (cm) - Depth 0.2 0.2 0.2 -Total Square Cm 0.06 0.09 0.09 -Date of Last Picture (Recall this 11/13/21 field) -Photo Taken Yes -Epithelialization None Present -Tunneling No -Undermining/Tunneling No -Circular Undermining No -Exudate Amt Small Small Small -Exudate Type Serosanguineous Serous Serosanguineous -Wound Margin Distinct, Distinct, Distinct, Outline Outline Outline Attached Attached Attached -Granulation Amt None Present (0 Large (67-100%) None Present (0 %) %) -Granulation Quality [place] -Slough/Fibrin Yes -Necrosis Amt Large (67-100%) Small (1-33%) Large (67-100%) -Necrotic Tissue Type Adherent Slough Adherent Slough Adherent Slough -Texture (Gricelda-wound Skin Appearance) Assessed, Assessed Assessed, Scarring Scarring -Moisture ([place]-wound Skin Appearance) No Abnormality, Assessed, No Abnormality, Assessed Maceration Assessed -Color ([place]da-wound Skin Appearance) No Abnormality, Assessed,Palor No Abnormality, Assessed Assessed -Temperature ([place]-wound Skin No Abnormality No Abnormality No Abnormality Appearance) (Pt Warm) (Pt Warm) (Pt Warm) -Tenderness on Palpation ([place]da-wound No No No Skin Appearance) -Ulcer Cleansing Rinsed/ Rinsed/ Rinsed/ Irrigated with Irrigated with Irrigated with Saline Saline Saline -Foul Odor after Cleansing No No No -Anesthetic Used 5% Lidocaine 5% Lidocaine 5% Lidocaine Gel Gel Gel #1 left 2nd toe -Combined with other wound No -Current Size (cm) - Length 0.5 0.4 0.5 -Current Size (cm) - Width 1.5 1.2 1.5 -Current Size (cm) - Depth 0.1 0.2 0.2 -Total Square Cm 0.75 0.48 0.75 -Date of Last Picture (Recall this 11/13/21 field) -Photo Taken Yes -Epithelialization None Present -Tunneling No -Undermining/Tunneling No -Circular Undermining No -Exudate Amt Small Small Small -Exudate Type Serosanguineous Serous Serosanguineous -Wound Margin Distinct, Distinct, Distinct, Outline Outline Outline Attached Attached Attached -Granulation Amt Small (1-33%) None Present (0 %) -Granulation Quality [place] -Slough/Fibrin Yes -Necrosis Amt Large (67-100%) Large (67-100%) Large (67-100%) -Necrotic Tissue Type Adherent Slough Adherent Slough Adherent Slough -Texture ([place]da-wound Skin Appearance) Assessed, Assessed Assessed, Localized Edema Scarring ,Scarring -Moisture ([place]-wound Skin Appearance) No Abnormality, Assessed, No Abnormality, Assessed Maceration Assessed -Color ([place]-wound Skin Appearance) No Abnormality, Assessed, No Abnormality, Assessed Erythema,Palor Assessed -Temperature ([place]-wound Skin No Abnormality No Abnormality No Abnormality Appearance) (Pt Warm) (Pt Warm) (Pt Warm) -Tenderness on Palpation ([place]-wound No No No Skin Appearance) -Ulcer Cleansing Rinsed/ Rinsed/ Rinsed/ Irrigated with Irrigated with Irrigated with Saline Saline Saline -Foul Odor after Cleansing No No No -Anesthetic Used 5% Lidocaine 5% Lidocaine 5% Lidocaine Gel Gel Gel 11/27/21 08:08 Wound Center Nurse 1 #2 Left Hallux -Combined with other wound -Current Size (cm) - Length 0.3 -Current Size (cm) - Width 0.2 -Current Size (cm) - Depth 0.2 -Total Square Cm 0.06 -Date of Last Picture (Recall this field) -Photo Taken -Epithelialization -Tunneling -Undermining/Tunneling -Circular Undermining -Exudate Amt Small -Exudate Type Serosanguineous -Wound Margin Distinct, Outline Attached -Granulation Amt Large (67-100%) -Granulation Quality [place] -Slough/Fibrin -Necrosis Amt None Present (0 %) -Necrotic Tissue Type -Texture (Gricelda-wound Skin Appearance) Assessed, Scarring -Moisture (G[place]elda-wound Skin Appearance) No Abnormality, Assessed -Color ([place]-wound Skin Appearance) No Abnormality, Assessed -Temperature ([place]-wound Skin No Abnormality Appearance) (Pt Warm) -Tenderness on Palpation ([place]-wound No Skin Appearance) -Ulcer Cleansing Rinsed/ Irrigated with Saline -Foul Odor after Cleansing No -Anesthetic Used 4% Lidocaine Solution #1 left 2nd toe -Combined with other wound -Current Size (cm) - Length 0.2 -Current Size (cm) - Width 1.9 -Current Size (cm) - Depth 0.2 -Total Square Cm 0.38 -Date of Last Picture (Recall this field) -Photo Taken -Epithelialization -Tunneling -Undermining/Tunneling -Circular Undermining -Exudate Amt Small -Exudate Type Serosanguineous -Wound Margin Distinct, Outline Attached -Granulation Amt None Present (0 %) -Granulation Quality -Slough/Fibrin -Necrosis Amt Large (67-100%) -Necrotic Tissue Type Adherent Slough -Texture ([place]da-wound Skin Appearance) Assessed, Scarring -Moisture ([place]-wound Skin Appearance) No Abnormality, Assessed -Color ([place]-wound Skin Appearance) No Abnormality, Assessed -Temperature ([place]-wound Skin No Abnormality Appearance) (Pt Warm) -Tenderness on Palpation ([place]-wound No Skin Appearance) -Ulcer Cleansing Rinsed/ Irrigated with Saline -Foul Odor after Cleansing No -Anesthetic Used 4% Lidocaine Solution WC - Nurse 2 - General Ulcer CM Notes Start: 11/06/21 08:13 Freq: Status: Active Protocol: Activity Type Activity Date Activity User E-Sign Co-Sign Detail Recorded Client Recorded Date Recorded By Document 11/06/21 08:29 MW [id number] 11/06/21 08:35 MW Document 11/13/21 08:13 MW [id number] 11/13/21 08:18 MW Document 11/20/21 08:24 MW [id number] 11/20/21 08:31 MW Document 11/27/21 08:39 PL [id number] 11/27/21 08:40 PL 11/06/21 11/13/21 11/20/21 08:29 08:13 08:24 Wound Center Nurse 2 #2 Left Hallux -Time : 08:13 08:25 -Correct Patient Yes Yes Yes -Correct Side, Site, Position Yes Yes Yes -Correct Procedure Yes Yes Yes -Procedure Performed Yes Yes Yes -Type of Procedure Debridement Debridement Debridement -Clinical Debridement Subcutaneous Subcutaneous Subcutaneous -Tissue Removed Subcutaneous Subcutaneous Subcutaneous -Post Debridement (cm) - Length 0.3 0.4 0.4 -Post Debridement (cm) - Width 0.3 0.4 0.3 -Post Debridement (cm) - Depth 0.2 0.2 0.2 -Total Square (Post) (cm) 0.09 0.16 0.12 -Area of Debridement (cm) - Length 0.3 0.4 0.4 -Area of Debridement (cm) - Width 0.3 0.4 0.3 -Total Square (Area) (cm) 0.09 0.16 0.12 -Tunneling No No No -Undermining/Tunneling No No No -Circular Undermining No No No -Wound/Ulcer Outcome Not Healed Not Healed Not Healed -Ulcer Cleansing Rinsed/ Rinsed/ Rinsed/ Irrigated with Irrigated with Irrigated with Saline Saline Saline -Foul Odor after Cleansing No No No -Bioengineered Tissue No No No -Bleeding Controlled with Pressure Pressure Pressure -Treatment Response Procedure Procedure Procedure Tolerated Well Tolerated Well Tolerated Well -Offloading No No No -Debridement - Subq, 1st 20sq cm Yes Yes Yes #1 left 2nd toe -Time : 08:13 08:26 -Correct Patient Yes Yes Yes -Correct Side, Site, Position Yes Yes Yes -Correct Procedure Yes Yes Yes -Procedure Performed Yes Yes Yes -Type of Procedure Debridement Debridement Debridement -Clinical Debridement Subcutaneous Subcutaneous Subcutaneous -Tissue Removed Subcutaneous Subcutaneous Subcutaneous -Post Debridement (cm) - Length 0.3 0.5 0.3 -Post Debridement (cm) - Width 1.0 1.7 1.5 -Post Debridement (cm) - Depth 0.1 0.2 0.2 -Total Square (Post) (cm) 0.30 0.85 0.45 -Area of Debridement (cm) - Length 0.3 0.5 0.3 -Area of Debridement (cm) - Width 1.0 1.7 1.5 -Total Square (Area) (cm) 0.30 0.85 0.45 -Tunneling No No No -Undermining/Tunneling No No No -Circular Undermining No No No -Wound/Ulcer Outcome Not Healed Not Healed Not Healed -Ulcer Cleansing Rinsed/ Rinsed/ Rinsed/ Irrigated with Irrigated with Irrigated with Saline Saline Saline -Foul Odor after Cleansing No No No -Bioengineered Tissue No No No -Bleeding Controlled with Pressure Pressure Pressure -Treatment Response Procedure Procedure Procedure Tolerated Well Tolerated Well Tolerated Well -Offloading No No No -Debridement - Subq, 1st 20sq cm No No No Pain Scale: 0-10 Numeric Is Patient Pain Free? Yes Yes Yes 11/27/21 08:39 Wound Center Nurse 2 #2 Left Hallux -Time 08:15 -Correct Patient Yes -Correct Side, Site, Position Yes -Correct Procedure Yes -Procedure Performed Yes -Type of Procedure Debridement -Clinical Debridement Subcutaneous -Tissue Removed Subcutaneous -Post Debridement (cm) - Length 0.4 -Post Debridement (cm) - Width 0.3 -Post Debridement (cm) - Depth 0.2 -Total Square (Post) (cm) 0.12 -Area of Debridement (cm) - Length 0.4 -Area of Debridement (cm) - Width 0.3 -Total Square (Area) (cm) 0.12 -Tunneling No -Undermining/Tunneling No -Circular Undermining No -Wound/Ulcer Outcome Not Healed -Ulcer Cleansing Rinsed/ Irrigated with Saline -Foul Odor after Cleansing No -Bioengineered Tissue No -Bleeding Controlled with Pressure -Treatment Response Procedure Tolerated Well -Offloading -Debridement - Subq, 1st 20sq cm Yes #1 left 2nd toe -Time 08:15 -Correct Patient Yes -Correct Side, Site, Position Yes -Correct Procedure Yes -Procedure Performed Yes -Type of Procedure Debridement -Clinical Debridement Subcutaneous -Tissue Removed Subcutaneous -Post Debridement (cm) - Length 0.2 -Post Debridement (cm) - Width 0.5 -Post Debridement (cm) - Depth 0.2 -Total Square (Post) (cm) 0.10 -Area of Debridement (cm) - Length 0.2 -Area of Debridement (cm) - Width 0.5 -Total Square (Area) (cm) 0.10 -Tunneling No -Undermining/Tunneling No -Circular Undermining No -Wound/Ulcer Outcome Not Healed -Ulcer Cleansing Rinsed/ Irrigated with Saline -Foul Odor after Cleansing No -Bioengineered Tissue No -Bleeding Controlled with Pressure -Treatment Response Procedure Tolerated Well -Offloading -Debridement - Subq, 1st 20sq cm No Pain Scale: 0-10 Numeric Is Patient Pain Free? Yes WC - Nurse 3 - General Ulcer D/C NN Start: 11/06/21 08:13 Freq: Status: Active Protocol: Activity Type Activity Date Activity User E-Sign Co-Sign Detail Recorded Client Recorded Date Recorded By Document 11/06/21 08:44 AK [id number] 11/06/21 08:45 AK Document 11/20/21 08:35 KR [id number] 11/20/21 08:35 KR Document 11/27/21 08:35 KR [id number] 11/27/21 08:35 KR 11/06/21 11/20/21 11/27/21 08:44 08:35 08:35 Wound Care Nurse 3 #2 Left Hallux -Ulcer Cleansing Rinsed/ Rinsed/ Rinsed/ Irrigated with Irrigated with Irrigated with Saline Saline Saline -Foul Odor after Cleansing No -Negative Pressure Wound Therapy N/A -Primary Dressing Applied Aquacel Extra Promogran Promogran Zohreh Matter -Primary Dressing Covered/Secured with Dry Gauze, Dry Gauze, Dry Gauze, Secured with Secured with Secured with Tape Tape Tape -Aquacel Extra 1 -Promogran 1 -Promogran Zohreh Matter 1 #1 left 2nd toe -Ulcer Cleansing Rinsed/ Rinsed/ Irrigated with Irrigated with Saline Saline -Foul Odor after Cleansing No -Negative Pressure Wound Therapy N/A -Primary Dressing Applied Aquacel Extra -Primary Dressing Covered/Secured with Dry Gauze, Dry Gauze, Dry Gauze, Secured with Secured with Secured with Tape Tape Tape -Aquacel Extra 0 Pain Scale: 0-10 Numeric Is Patient Pain Free? Yes Yes Yes WC - Visit Discharge Discharge Condition Stable Stable Stable Ambulatory Status Ambulatory Ambulatory Ambulatory Transportation Private Auto Private Auto Private Auto Medication Reconcilliation completed & Yes provided to patient/care provider Clinical Summary of Care Provided Yes Additional Wound Wound debrided: Left second toe DFU Wound Grade/Stage: Stage II Type of Debridement: Excisional debridement Anesthesia Used: 5% Lidocaine Gel Depth: Down to and including healthy tissue Percentage of wound debrided: 100 Instrument Used: 3mm curette Tissue Removed: Devitalized tissue and fibrin Severity: Limited To Skin Breakdown Amount of bleeding with debridement: Mild Bleeding Controlled with: Pressure and Compression and gauze Patient tolerated procedure: Patient tolerated procedure well Assessment/Plan Assessment/Plan (1) Uncontrolled type 2 diabetes mellitus with hyperglycemia: CODE(S): E11.65 - Type 2 diabetes mellitus with hyperglycemia (2) Diabetic foot ulcer associated with type 2 diabetes mellitus: CODE(S): E11.621 - Type 2 diabetes mellitus with foot ulcer; L97.509 - Non-pressure chronic ulcer of other part of unspecified foot with unspecified severity QUALIFIERS: Diabetic foot ulcer location: toe Laterality: left Non-pressure ulcer stage: unspecified non-pressure ulcer stage Qualified Code(s): E11.621 - Type 2 diabetes mellitus with foot ulcer; L97.529 - Non-pressure chronic ulcer of other part of left foot with unspecified severity PLAN: Wash left foot and in between toes with antibacterial soap. Promogran to wound base at left hallux and left second toe moistened. Cover with gauze and tape daily Continue taking fluconazole 100 mg 1 p.o. daily for 30 days Follow-up in 1 week (3) Open wound of foot: CODE(S): S91.309A - Unspecified open wound, unspecified foot, initial encounter QUALIFIERS: Encounter type: initial encounter Laterality: left Qualified Code(s): S91.302A - Unspecified open wound, left foot, initial encounter (4) Nonhealing nonsurgical wound: CODE(S): T14.8XXA - Other injury of unspecified body region, initial encounter
== END 2021-12-03 23:59 | disposition home or self-care (01) ==
LOC: WC 08:00
PROVIDERS: PCP Family Medicine; Referring Provider Nurse Practitioner; Visit Provider Nurse Practitioner
DX: E11.621 Type 2 diabetes mellitus with foot ulcer (principal); L97.522 Non-pressure chronic ulcer of other part of left foot with fat layer exposed; L97.521 Non-pressure chronic ulcer of other part of left foot limited to breakdown of skin; E11.65 Type 2 diabetes mellitus with hyperglycemia; L03.032 Cellulitis of left toe
CPT/HCPCS: 11042

== ENCOUNTER 2022-01-01 08:00 | Outpatient (RCR) | payer OTHER, SELFPAY ==
[2021-12-04 01:10] VITALS: BP 126/82; PULSE 82; RESP 16; TEMP 36.4
[2021-12-04 08:04] VITALS: BP 120/73; PULSE 79; TEMP 35.9
--- NOTE | 2021-12-04 09:01 | PN.PCM_ITS ---
History of Present Illness Date of Service: 12/04/21 Chief Complaint: Follow-up left second toe and left hallux History of Wound: 65-year-old white male with type 2 diabetes semi well- controlled. He appears to have Charcot of the right foot and a collapsed right arch. Appears with a nonhealing wound to his left second toe under the nail dorsal side and cellulitis to the whole toe. Also back in June developed a blister while on vacation wearing different shoes on the left hallux, that still has not closed and is a small open area full-thickness. Progress of Wound: The measurements are the same but the wound looks improved. Actually I bleeding this time with debridement. Suggested to the patient he really needs to pack the wound with the Promogran. No sign of infection no extra redness. Did developed a blood blister on his toenail I cut the toenail and extracted the blood. Subjective Subjective Patient has no concerns at this time he thinks he was working out in the yard over the weekend and developed the the blood blister under the nail. Objective Data Objective Data As above in progress notes we will continue using the Promogran and he is just slow to heal Vital Signs: Vital Signs Temp Pulse Resp BP 96.7 F L 79 16 120/73 12/04/21 08:04 12/04/21 08:04 12/04/21 01:10 12/04/21 08:04 Lab / Micro Data Attestation: I reviewed the patient's lab results. Physical Exam Const oriented x3 General Appearance: cooperative Exam Limitations: no limitations HEENT normocephalic Head and Scalp: normal to inspection Face and Sinus: normal facial exam Nose: external nose normal General Ear: hearing grossly impaired External Ear: external ears normal Mouth: oral and palatal mucosa normal Eyes PERRL General Eye: normal appearance of both eyes Neck full ROM General: normal visual inspection Resp normal respiratory effort Effort and Inspection: able to speak in complete sentences Auscultation: clear to auscultation bilaterally Cardio regular rate and regular rhythm Palpation: normal PMI Rate: regular rate Rhythm: regular rhythm GI Auscultation: normoactive bowel sounds Palpation: soft and no hepatosplenomegaly external exam normal Back/Spine Cervical Spine: cervical ROM normal Thoracic Spine / Upper Back: normal to inspection Lumbar Spine / Lower Back: normal to inspection Extremity normal to inspection General Extremity: normal exam except as noted Skin no rashes or lesions noted Neuro oriented x3 Psych Appearance: grossly normal Speech: normal speech Thought Content: normal thought content Judgement: judgement good Debridement Note Debridement Note Wound debrided: Left second toe DFU Laterality: Left Wound Grade/Stage: Stage II Type of Debridement: Excisional debridement Depth: Down to and including healthy tissue Percentage of wound debrided: 100 Instrument Used: 3mm curette Severity: Limited To Skin Breakdown Amount of bleeding with debridement: Mild Bleeding Controlled with: Compression and gauze Patient tolerated procedure: Patient tolerated procedure well Post-Debridement Measurements and Additional Note: Post-Debridement Measurements/Treatment DOMINIQUE - Nurse 1 - General Ulcer Assessment Start: 12/04/21 08:04 Freq: Status: Active Protocol: AIXA Activity Type Activity Date Activity User E-Sign Co-Sign Detail Recorded Client Recorded Date Recorded By Document 12/04/21 08:04 DYLON [id number] 12/04/21 08:16 DYLON 12/04/21 08:04 WC - Today's Visit Information Type of service Follow-up Visit (Physician/INFANTRY OPERATIONS SPECIALIST ) Arrival Mode Ambulatory Patient Identification Verified (Name & Yes ) Patient Requires Transmission-Based No Precautions Safety Precautions NA Vital Signs Temperature (97.8 F-99.1 F) 96.7 F L Temperature Source Temporal Pulse Rate (60-100) 79 Pulse Location Monitor Blood Pressure (90/60-120/80) 120/73 Blood Pressure Mean (mm Hg) 88 Source Monitor History Since Last Visit- (Skip if this is Patient's initial visit) Have you changed medications since your No last visit? Any new allergies or adverse reactions No Had a fall/change in ADL's that may No increase risk of falls Signs or symptoms of abuse and/or No neglect since last visit Have you been in the hospital since your No last visit? Has dressing in place as prescribed Yes Has compression in place as prescribed N/A Has offloadiing in place as prescribed N/A Experienced any changes in pain level or No management Left Footwear Regular Shoe Right Footwear Regular Shoe Pain Scale: 0-10 Numeric Is Patient Pain Free? Yes DOMINIQUE Renee Nurse 1 - General Ulcer Measurement Start: 12/04/21 08:04 Freq: Status: Active Protocol: Activity Type Activity Date Activity User E-Sign Co-Sign Detail Recorded Client Recorded Date Recorded By Document 12/04/21 08:04 DYLON [id number] 12/04/21 08:16 AK 12/04/21 08:04 Wound Center Nurse 1 #2 Left Hallux -Combined with other wound No -Current Size (cm) - Length 0.2 -Current Size (cm) - Width 0.2 -Current Size (cm) - Depth 0.2 -Total Square Cm 0.04 -Date of Last Picture (Recall this 12/04/21 field) -Photo Taken Yes -Epithelialization None Present -Tunneling No -Undermining/Tunneling No -Circular Undermining No -Classification - Thickness Partial Thickness -Change in Wound Grade/Stage No -Exudate Amt None Present -Granulation Amt None Present (0 %) -Granulation Quality N/A -Necrosis Amt Large (67-100%) -Necrotic Tissue Type Adherent Slough -Structure Exposed N/A -Texture (Gricelda-wound Skin Appearance) No Abnormality, Assessed -Moisture (Gricelda-wound Skin Appearance) No Abnormality, Assessed -Color (Gricelda-wound Skin Appearance) No Abnormality, Assessed -Temperature (Gricelda-wound Skin No Abnormality Appearance) (Pt Warm) -Tenderness on Palpation (Gricelda-wound No Skin Appearance) -Ulcer Cleansing Rinsed/ Irrigated with Saline -Foul Odor after Cleansing No -Anesthetic Used 4% Lidocaine Solution #1 left 2nd toe -Combined with other wound No -Current Size (cm) - Length 0.5 -Current Size (cm) - Width 1.6 -Current Size (cm) - Depth 0.3 -Total Square Cm 0.80 -Date of Last Picture (Recall this 12/04/21 field) -Photo Taken Yes -Epithelialization None Present -Tunneling No -Undermining/Tunneling No -Circular Undermining No -Change in Wound Grade/Stage No -Exudate Amt None Present -Wound Margin Distinct, Outline Attached -Granulation Amt None Present (0 %) -Granulation Quality N/A -Slough/Fibrin Yes -Necrosis Amt Large (67-100%) -Necrotic Tissue Type Adherent Slough -Structure Exposed N/A -Texture (Gricelda-wound Skin Appearance) No Abnormality, Assessed -Moisture (Gricelda-wound Skin Appearance) No Abnormality, Assessed -Color (Gricelda-wound Skin Appearance) No Abnormality, Assessed -Temperature (Gricelda-wound Skin No Abnormality Appearance) (Pt Warm) -Tenderness on Palpation (Gricelda-wound No Skin Appearance) -Ulcer Cleansing Rinsed/ Irrigated with Saline -Foul Odor after Cleansing No -Anesthetic Used 4% Lidocaine Solution Lower Limb Edema Present No WC - Nurse 2 - General Ulcer CM Notes Start: 12/04/21 08:04 Freq: Status: Active Protocol: Activity Type Activity Date Activity User E-Sign Co-Sign Detail Recorded Client Recorded Date Recorded By Document 12/04/21 08:23 MW [id number] 12/04/21 08:28 MW 12/04/21 08:23 Wound Center Nurse 2 #2 Left Hallux -Time 08:24 -Correct Patient Yes -Correct Side, Site, Position Yes -Correct Procedure Yes -Procedure Performed Yes -Type of Procedure Debridement -Clinical Debridement Subcutaneous -Tissue Removed Subcutaneous -Post Debridement (cm) - Length 0.3 -Post Debridement (cm) - Width 0.3 -Post Debridement (cm) - Depth 0.2 -Total Square (Post) (cm) 0.09 -Area of Debridement (cm) - Length 0.3 -Area of Debridement (cm) - Width 0.3 -Total Square (Area) (cm) 0.09 -Tunneling No -Undermining/Tunneling No -Circular Undermining No -Wound/Ulcer Outcome Not Healed -Ulcer Cleansing Rinsed/ Irrigated with Saline -Foul Odor after Cleansing No -Bioengineered Tissue No -Bleeding Controlled with Pressure -Treatment Response Procedure Tolerated Well -Offloading No -Debridement - Subq, 1st 20sq cm Yes #1 left 2nd toe -Time 08:25 -Correct Patient Yes -Correct Side, Site, Position Yes -Correct Procedure Yes -Procedure Performed Yes -Type of Procedure Debridement -Clinical Debridement Subcutaneous -Tissue Removed Subcutaneous -Post Debridement (cm) - Length 0.3 -Post Debridement (cm) - Width 1.5 -Post Debridement (cm) - Depth 0.2 -Total Square (Post) (cm) 0.45 -Area of Debridement (cm) - Length 0.3 -Area of Debridement (cm) - Width 1.5 -Total Square (Area) (cm) 0.45 -Tunneling No -Undermining/Tunneling No -Circular Undermining No -Wound/Ulcer Outcome Not Healed -Ulcer Cleansing Rinsed/ Irrigated with Saline -Foul Odor after Cleansing No -Bioengineered Tissue No -Bleeding Controlled with Pressure -Treatment Response Procedure Tolerated Well -Offloading No -Debridement - Subq, 1st 20sq cm No Pain Scale: 0-10 Numeric Is Patient Pain Free? Yes Additional Wound Wound debrided: Left hallux DFU Wound Grade/Stage: Stage II Type of Debridement: Excisional debridement Anesthesia Used: 5% Lidocaine Gel Depth: in the subcutaneous layer Percentage of wound debrided: 100 Instrument Used: 3mm curette Severity: Fat Layer Exposed Amount of bleeding with debridement: Mild Bleeding Controlled with: Compression and gauze Patient tolerated procedure: Patient tolerated procedure well Assessment/Plan Assessment/Plan (1) Uncontrolled type 2 diabetes mellitus with hyperglycemia: CODE(S): E11.65 - Type 2 diabetes mellitus with hyperglycemia (2) Diabetic foot ulcer associated with type 2 diabetes mellitus: CODE(S): E11.621 - Type 2 diabetes mellitus with foot ulcer; L97.509 - Non -pressure chronic ulcer of other part of unspecified foot with unspecified severity QUALIFIERS: Diabetic foot ulcer location: toe Laterality: left Non-pressure ulcer stage: unspecified non-pressure ulcer stage Qualified Code(s): E11.621 - Type 2 diabetes mellitus with foot ulcer; L97.529 - Non- pressure chronic ulcer of other part of left foot with unspecified severity PLAN: Wash left foot and in between toes with antibacterial soap. Promogran to wound base pack well at left hallux and left second toe moistened. Cover with gauze and tape daily Continue taking fluconazole 100 mg 1 p.o. daily for 30 days Follow-up in 1 week (3) Open wound of foot: CODE(S): S91.309A - Unspecified open wound, unspecified foot, initial encounter QUALIFIERS: Encounter type: initial encounter Laterality: left Qualified Code(s): S91.302A - Unspecified open wound, left foot, initial encounter (4) Nonhealing nonsurgical wound: CODE(S): T14.8XXA - Other injury of unspecified body region, initial encounter
[2021-12-11 08:05] VITALS: BP 119/72; PULSE 82; TEMP 36.1
--- NOTE | 2021-12-11 09:13 | PCM.WC.PN ---
History of Present Illness Date of Service: 12/11/21 Chief Complaint: Follow-up left second toe and left hallux History of Wound: 65-year-old white male with type 2 diabetes semi well-controlled. He appears to have Charcot of the right foot and a collapsed right arch. Appears with a nonhealing wound to his left second toe under the nail dorsal side and cellulitis to the whole toe. Also back in June developed a blister while on vacation wearing different shoes on the left hallux, that still has not closed and is a small open area full-thickness. Progress of Wound: The left second toe is finally healed. Still looks macerated suggested he start changing his socks residential through the day. The left hallux I really pare down around the wound to maybe flatten it out he does have some skin there but he needs to fill in. We will continue using the Promogran it seems to be working well for him the left second toe can just use a gauze dressing. Having patient change his socks residential through the day I think his feet are just sweaty which does not help in healing. Subjective Subjective No concerns Objective Data Objective Data MsRosmery progress notes written above he starting to start to heal again Vital Signs: Vital Signs Temp Pulse Resp BP 97.0 F L 82 16 119/72 12/11/21 08:05 12/11/21 08:05 12/04/21 01:10 12/11/21 08:05 Lab / Micro Data Attestation: I reviewed the patient's lab results. Physical Exam Const oriented x3 General Appearance: cooperative Exam Limitations: no limitations HEENT normocephalic Head and Scalp: normal to inspection Face and Sinus: normal facial exam Nose: external nose normal General Ear: hearing grossly impaired External Ear: external ears normal Mouth: oral and palatal mucosa normal Eyes PERRL General Eye: normal appearance of both eyes Neck full ROM General: normal visual inspection Resp normal respiratory effort Effort and Inspection: able to speak in complete sentences Auscultation: clear to auscultation bilaterally Cardio regular rate and regular rhythm Palpation: normal PMI Rate: regular rate Rhythm: regular rhythm GI Auscultation: normoactive bowel sounds Palpation: soft and no hepatosplenomegaly external exam normal Back/Spine Cervical Spine: cervical ROM normal Thoracic Spine / Upper Back: normal to inspection Lumbar Spine / Lower Back: normal to inspection Extremity normal to inspection General Extremity: normal exam except as noted Skin no rashes or lesions noted Neuro oriented x3 Psych Appearance: grossly normal Speech: normal speech Thought Content: normal thought content Judgement: judgement good Debridement Note Debridement Note Wound debrided: Left hallux Wound Grade/Stage: Stage II Type of Debridement: Excisional debridement Anesthesia Used: 5% Lidocaine Gel Depth: Down to and including healthy tissue Percentage of wound debrided: 100 Severity: Limited To Skin Breakdown Amount of bleeding with debridement: None Bleeding Controlled with: Pressure Patient tolerated procedure: Patient tolerated procedure well Post-Debridement Measurements and Additional Note: Post-Debridement Measurements/Treatment - Nurse 1 - General Ulcer Assessment Start: 12/04/21 08:04 Freq: Status: Active Protocol: AIXA Activity Type Activity Date Activity User E-Sign Co-Sign Detail Recorded Client Recorded Date Recorded By Document 12/04/21 08:04 AK [id number] 12/04/21 08:16 AK Document 12/11/21 08:05 KR [id number] 12/11/21 08:06 LIZ 12/04/21 12/11/21 08:04 08:05 - Today's Visit Information Type of service Follow-up Visit Follow-up Visit (Physician/BENEFITS PROCESSOR (Physician/BENEFITS PROCESSOR ) ) Arrival Mode Ambulatory Ambulatory Patient Identification Verified (Name & Yes Yes ) Patient Requires Transmission-Based No Precautions Safety Precautions NA Vital Signs Temperature (97.8 F-99.1 F) 96.7 F L 97.0 F L Temperature Source Temporal Temporal Pulse Rate (60-100) 79 82 Pulse Location Monitor Monitor Blood Pressure (90/60-120/80) 120/73 119/72 Blood Pressure Mean (mm Hg) 88 87 Source Monitor Monitor Position Sitting Blood Pressure Location Right Arm History Since Last Visit- (Skip if this is Patient's initial visit) Have you changed medications since your No No last visit? Any new allergies or adverse reactions No No Had a fall/change in ADL's that may No No increase risk of falls Signs or symptoms of abuse and/or No No neglect since last visit Have you been in the hospital since your No No last visit? Has dressing in place as prescribed Yes Yes Has compression in place as prescribed N/A N/A Has offloadiing in place as prescribed N/A N/A Experienced any changes in pain level or No No management Left Footwear Regular Shoe Regular Shoe Right Footwear Regular Shoe Regular Shoe Pain Scale: 0-10 Numeric Is Patient Pain Free? Yes Yes WC - Nurse 1 - General Ulcer Measurement Start: 12/04/21 08:04 Freq: Status: Active Protocol: Activity Type Activity Date Activity User E-Sign Co-Sign Detail Recorded Client Recorded Date Recorded By Document 12/04/21 08:04 AK [id number] 12/04/21 08:16 AK Document 12/11/21 08:05 KR [id number] 12/11/21 08:06 KR 12/04/21 12/11/21 08:04 08:05 Wound Center Nurse 1 #2 Left Hallux -Combined with other wound No -Current Size (cm) - Length 0.2 0.4 -Current Size (cm) - Width 0.2 0.3 -Current Size (cm) - Depth 0.2 0.3 -Total Square Cm 0.04 0.12 -Date of Last Picture (Recall this 12/04/21 field) -Photo Taken Yes -Epithelialization None Present -Tunneling No -Undermining/Tunneling No -Circular Undermining No -Classification - Thickness Partial Thickness -Change in Wound Grade/Stage No -Exudate Amt None Present Medium -Exudate Type Serosanguineous -Wound Margin Distinct, Outline Attached -Granulation Amt None Present (0 Medium (34-66%) %) -Granulation Quality N/A [place] -Necrosis Amt Large (67-100%) -Necrotic Tissue Type Adherent Slough -Structure Exposed N/A -Texture (Gricelda-wound Skin Appearance) No Abnormality, Assessed, Assessed Scarring -Moisture (Gricelda-wound Skin Appearance) No Abnormality, Assessed, Assessed Maceration -Color (Gricelda-wound Skin Appearance) No Abnormality, No Abnormality, Assessed Assessed -Temperature (Gricelda-wound Skin No Abnormality No Abnormality Appearance) (Pt Warm) (Pt Warm) -Tenderness on Palpation (Gricelda-wound No No Skin Appearance) -Ulcer Cleansing Rinsed/ Rinsed/ Irrigated with Irrigated with Saline Saline -Foul Odor after Cleansing No No -Anesthetic Used 4% Lidocaine 4% Lidocaine Solution Solution #1 left 2nd toe -Combined with other wound No -Current Size (cm) - Length 0.5 0.2 -Current Size (cm) - Width 1.6 1.5 -Current Size (cm) - Depth 0.3 0.1 -Total Square Cm 0.80 0.30 -Date of Last Picture (Recall this 12/04/21 field) -Photo Taken Yes -Epithelialization None Present -Tunneling No -Undermining/Tunneling No -Circular Undermining No -Change in Wound Grade/Stage No -Exudate Amt None Present Small -Exudate Type Serosanguineous -Wound Margin Distinct, Distinct, Outline Outline Attached Attached -Granulation Amt None Present (0 %) -Granulation Quality N/A -Slough/Fibrin Yes -Necrosis Amt Large (67-100%) Large (67-100%) -Necrotic Tissue Type Adherent Slough Adherent Slough -Structure Exposed N/A -Texture (Gricelda-wound Skin Appearance) No Abnormality, Assessed, Assessed Scarring -Moisture (Gricelda-wound Skin Appearance) No Abnormality, No Abnormality, Assessed Assessed -Color (Gricelda-wound Skin Appearance) No Abnormality, No Abnormality, Assessed Assessed -Temperature (Gricelda-wound Skin No Abnormality No Abnormality Appearance) (Pt Warm) (Pt Warm) -Tenderness on Palpation (Gricelda-wound No No Skin Appearance) -Ulcer Cleansing Rinsed/ Rinsed/ Irrigated with Irrigated with Saline Saline -Foul Odor after Cleansing No No -Anesthetic Used 4% Lidocaine 4% Lidocaine Solution Solution Lower Limb Edema Present No WC - Nurse 2 - General Ulcer CM Notes Start: 12/04/21 08:04 Freq: Status: Active Protocol: Activity Type Activity Date Activity User E-Sign Co-Sign Detail Recorded Client Recorded Date Recorded By Document 12/04/21 08:23 MW [id number] 12/04/21 08:28 MW Document 12/11/21 08:27 MW [id number] 12/11/21 08:30 MW 12/04/21 12/11/21 08:23 08:27 Wound Center Nurse 2 #2 Left Hallux -Time 08:24 08:27 -Correct Patient Yes Yes -Correct Side, Site, Position Yes Yes -Correct Procedure Yes Yes -Procedure Performed Yes Yes -Type of Procedure Debridement Debridement -Clinical Debridement Subcutaneous Subcutaneous -Tissue Removed Subcutaneous Subcutaneous -Post Debridement (cm) - Length 0.3 0.5 -Post Debridement (cm) - Width 0.3 0.4 -Post Debridement (cm) - Depth 0.2 0.2 -Total Square (Post) (cm) 0.09 0.20 -Area of Debridement (cm) - Length 0.3 0.5 -Area of Debridement (cm) - Width 0.3 0.4 -Total Square (Area) (cm) 0.09 0.20 -Tunneling No No -Undermining/Tunneling No No -Circular Undermining No No -Wound/Ulcer Outcome Not Healed Not Healed -Ulcer Cleansing Rinsed/ Rinsed/ Irrigated with Irrigated with Saline Saline -Foul Odor after Cleansing No No -Bioengineered Tissue No No -Bleeding Controlled with Pressure Pressure -Treatment Response Procedure Procedure Tolerated Well Tolerated Well -Offloading No No -Debridement - Subq, 1st 20sq cm Yes Yes #1 left 2nd toe -Time 08:25 08:28 -Correct Patient Yes Yes -Correct Side, Site, Position Yes Yes -Correct Procedure Yes No -Procedure Performed Yes -Type of Procedure Debridement -Clinical Debridement Subcutaneous -Tissue Removed Subcutaneous -Post Debridement (cm) - Length 0.3 0 -Post Debridement (cm) - Width 1.5 0 -Post Debridement (cm) - Depth 0.2 0 -Total Square (Post) (cm) 0.45 0 -Area of Debridement (cm) - Length 0.3 -Area of Debridement (cm) - Width 1.5 -Total Square (Area) (cm) 0.45 -Tunneling No -Undermining/Tunneling No -Circular Undermining No -Wound/Ulcer Outcome Not Healed Healed- Epithelialized -Ulcer Cleansing Rinsed/ Irrigated with Saline -Foul Odor after Cleansing No -Bioengineered Tissue No -Bleeding Controlled with Pressure -Treatment Response Procedure Tolerated Well -Offloading No -Debridement - Subq, 1st 20sq cm No Pain Scale: 0-10 Numeric Is Patient Pain Free? Yes Yes WC - Nurse 3 - General Ulcer D/C NN Start: 12/04/21 08:04 Freq: Status: Active Protocol: Activity Type Activity Date Activity User E-Sign Co-Sign Detail Recorded Client Recorded Date Recorded By Document 12/04/21 09:06 LIZ [id number] 12/04/21 09:07 KR Document 12/11/21 08:33 LIZ [id number] 12/11/21 08:34 LIZ 12/04/21 12/11/21 09:06 08:33 Wound Care Nurse 3 #2 Left Hallux -Ulcer Cleansing Rinsed/ Rinsed/ Irrigated with Irrigated with Saline Saline -Primary Dressing Applied Promogran Promogran -Primary Dressing Covered/Secured with Dry Gauze, Dry Gauze, Secured with Secured with Tape Tape -Promogran 1 1 #1 left 2nd toe -Ulcer Cleansing Rinsed/ Irrigated with Saline -Primary Dressing Applied Aquacel Extra Aquacel Extra -Primary Dressing Covered/Secured with Dry Gauze, Dry Gauze, Secured with Secured with Tape Tape -Aquacel Extra 1 1 Pain Scale: 0-10 Numeric Is Patient Pain Free? Yes Yes WC - Visit Discharge Discharge Condition Stable Stable Ambulatory Status Ambulatory Ambulatory Transportation Private Auto Private Auto Assessment/Plan Assessment/Plan (1) Uncontrolled type 2 diabetes mellitus with hyperglycemia: CODE(S): E11.65 - Type 2 diabetes mellitus with hyperglycemia (2) Diabetic foot ulcer associated with type 2 diabetes mellitus: CODE(S): E11.621 - Type 2 diabetes mellitus with foot ulcer; L97.509 - Non-pressure chronic ulcer of other part of unspecified foot with unspecified severity QUALIFIERS: Diabetic foot ulcer location: toe Laterality: left Non-pressure ulcer stage: unspecified non-pressure ulcer stage Qualified Code(s): E11.621 - Type 2 diabetes mellitus with foot ulcer; L97.529 - Non-pressure chronic ulcer of other part of left foot with unspecified severity PLAN: Wash left foot and in between toes with antibacterial soap. Promogran to wound base pack well at left hallux. Dry gauze dressing to left second toe . Cover with gauze and tape daily Continue taking fluconazole 100 mg 1 p.o. daily for 30 days Follow-up in 1 week (3) Open wound of foot: CODE(S): S91.309A - Unspecified open wound, unspecified foot, initial encounter QUALIFIERS: Encounter type: initial encounter Laterality: left Qualified Code(s): S91.302A - Unspecified open wound, left foot, initial encounter (4) Nonhealing nonsurgical wound: CODE(S): T14.8XXA - Other injury of unspecified body region, initial encounter
[2021-12-18 08:04] VITALS: BP 136/79; PULSE 82; RESP 16; TEMP 36.2
--- NOTE | 2021-12-18 08:49 | PN.PCM_ITS ---
History of Present Illness Date of Service: 12/18/21 Chief Complaint: Follow-up left second toe and left hallux History of Wound: 65-year-old white male with type 2 diabetes semi well- controlled. He appears to have Charcot of the right foot and a collapsed right arch. Appears with a nonhealing wound to his left second toe under the nail dorsal side and cellulitis to the whole toe. Also back in June developed a blister while on vacation wearing different shoes on the left hallux, that still has not closed and is a small open area full-thickness. Progress of Wound: Left second toe continues to be healed. Patient has finished his Diflucan for the fungal infection in his foot which appears to be doing much better. Left hallux wound is still open pare down the edges better this time made flatter with a #15 blade patient tolerated well we will continue with the Promogran for treatment. Subjective Subjective No concerns patient has no Objective Data Objective Data As above in progress notes the left second toe anterior site looks healed not macerated nailbeds look better on the from the Diflucan. Pare down the left hallux and will continue with the Promogran follow-up in 1 week Vital Signs: Vital Signs Temp Pulse Resp BP 97.2 F L 82 16 136/79 H 12/18/21 08:04 12/18/21 08:04 12/18/21 08:04 12/18/21 08:04 Physical Exam Const oriented x3 General Appearance: cooperative Exam Limitations: no limitations HEENT normocephalic Head and Scalp: normal to inspection Face and Sinus: normal facial exam Nose: external nose normal General Ear: hearing grossly impaired External Ear: external ears normal Mouth: oral and palatal mucosa normal Eyes PERRL General Eye: normal appearance of both eyes Neck full ROM General: normal visual inspection Resp normal respiratory effort Effort and Inspection: able to speak in complete sentences Auscultation: clear to auscultation bilaterally Cardio regular rate and regular rhythm Palpation: normal PMI Rate: regular rate Rhythm: regular rhythm GI Auscultation: normoactive bowel sounds Palpation: soft and no hepatosplenomegaly external exam normal Back/Spine Cervical Spine: cervical ROM normal Thoracic Spine / Upper Back: normal to inspection Lumbar Spine / Lower Back: normal to inspection Extremity normal to inspection General Extremity: normal exam except as noted Skin no rashes or lesions noted Neuro oriented x3 Psych Appearance: grossly normal Speech: normal speech Thought Content: normal thought content Judgement: judgement good Debridement Note Debridement Note Wound debrided: Left hallux Laterality: Left Wound Grade/Stage: stage II decubitus ulcer from pressure shoe Type of Debridement: Excisional debridement Anesthesia Used: 5% Lidocaine Gel Depth: in the subcutaneous layer Percentage of wound debrided: 100 Instrument Used: 5mm curette and #15 blade (Pared wound down to make flatter) Tissue Removed: Fibrin and callus Severity: Limited To Skin Breakdown Amount of bleeding with debridement: Mild Bleeding Controlled with: Compression and gauze Patient tolerated procedure: Patient tolerated procedure well Post-Debridement Measurements and Additional Note: Post-Debridement Measurements/Treatment - Nurse 1 - General Ulcer Assessment Start: 12/04/21 08:04 Freq: Status: Active Protocol: AIXA Activity Type Activity Date Activity User E-sign Co-sign Detail Recorded Client Recorded Date Recorded By Document 12/04/21 08:04 AK [id number] 12/04/21 08:16 AK Document 12/11/21 08:05 KR [id number] 12/11/21 08:06 KR Document 12/18/21 08:04 ML [id number] 12/18/21 08:14 ML 12/04/21 12/11/21 12/18/21 08:04 08:05 08:04 - Today's Visit Information Type of service Follow-up Visit Follow-up Visit Follow-up Visit (Physician/DISTRICT RESOURCE OFFICER (Physician/DISTRICT RESOURCE OFFICER (Physician/DISTRICT RESOURCE OFFICER ) ) ) Arrival Mode Ambulatory Ambulatory Ambulatory Transfer Assistance None Patient Identification Verified (Name & Yes Yes Yes ) Patient Requires Transmission-Based No No Precautions Safety Precautions NA NA Vital Signs Temperature (97.8 F-99.1 F) 96.7 F L 97.0 F L 97.2 F L Temperature Source Temporal Temporal Temporal Pulse Rate (60-100) 79 82 82 Pulse Location Monitor Monitor Monitor Respiratory Rate (12-18) 16 Respiratory rate source Observation Blood Pressure (90/60-120/80) 120/73 119/72 136/79 H Blood Pressure Mean (mm Hg) 88 87 98 Source Monitor Monitor Monitor Position Sitting Sitting Blood Pressure Location Right Arm Right Arm History Since Last Visit- (Skip if this is Patient's initial visit) Have you changed medications since your No No No last visit? Any new allergies or adverse reactions No No No Had a fall/change in ADL's that may No No No increase risk of falls Signs or symptoms of abuse and/or No No No neglect since last visit Have you been in the hospital since your No No No last visit? Has dressing in place as prescribed Yes Yes Yes Has compression in place as prescribed N/A N/A N/A Has offloadiing in place as prescribed N/A N/A N/A Experienced any changes in pain level or No No No management Left Footwear Regular Shoe Regular Shoe Regular Shoe Right Footwear Regular Shoe Regular Shoe Regular Shoe Pain Scale: 0-10 Numeric Is Patient Pain Free? Yes Yes Yes WC - Nurse 1 - General Ulcer Measurement Start: 12/04/21 08:04 Freq: Status: Active Protocol: Activity Type Activity Date Activity User E-sign Co-sign Detail Recorded Client Recorded Date Recorded By Document 12/04/21 08:04 AK [id number] 12/04/21 08:16 AK Document 12/11/21 08:05 KR [id number] 12/11/21 08:06 KR Document 12/18/21 08:04 ML [id number] 12/18/21 08:14 ML 12/04/21 12/11/21 12/18/21 08:04 08:05 08:04 Wound Center Nurse 1 #1 left 2nd toe -Combined with other wound No -Current Size (cm) - Length 0.5 0.2 0.1 -Current Size (cm) - Width 1.6 1.5 0.1 -Current Size (cm) - Depth 0.3 0.1 0.1 -Total Square Cm 0.80 0.30 0.01 -Date of Last Picture (Recall this 12/04/21 field) -Photo Taken Yes -Epithelialization None Present Large 67-100% -Tunneling No -Undermining/Tunneling No -Circular Undermining No -Change in Wound Grade/Stage No -Exudate Amt None Present Small None Present -Exudate Type Serosanguineous -Wound Margin Distinct, Distinct, Distinct, Outline Outline Outline Attached Attached Attached -Granulation Amt None Present (0 None Present (0 %) %) -Granulation Quality N/A -Slough/Fibrin Yes No -Necrosis Amt Large (67-100%) Large (67-100%) None Present (0 %) -Necrotic Tissue Type Adherent Slough Adherent Slough -Structure Exposed N/A -Texture ([place]-wound Skin Appearance) No Abnormality, Assessed, Assessed Assessed Scarring -Moisture ([place]da-wound Skin Appearance) No Abnormality, No Abnormality, Assessed Assessed Assessed -Color ([place]da-wound Skin Appearance) No Abnormality, No Abnormality, Assessed Assessed Assessed -Temperature ([place]-wound Skin No Abnormality No Abnormality No Abnormality Appearance) (Pt Warm) (Pt Warm) (Pt Warm) -Tenderness on Palpation ([place]-wound No No No Skin Appearance) -Ulcer Cleansing Rinsed/ Rinsed/ Rinsed/ Irrigated with Irrigated with Irrigated with Saline Saline Saline -Foul Odor after Cleansing No No No -Anesthetic Used 4% Lidocaine 4% Lidocaine 5% Lidocaine Solution Solution Gel #2 Left Hallux -Combined with other wound No -Current Size (cm) - Length 0.2 0.4 0.3 -Current Size (cm) - Width 0.2 0.3 0.3 -Current Size (cm) - Depth 0.2 0.3 0.3 -Total Square Cm 0.04 0.12 0.09 -Date of Last Picture (Recall this 12/04/21 field) -Photo Taken Yes -Epithelialization None Present -Tunneling No -Undermining/Tunneling No -Circular Undermining No -Classification - Thickness Partial Thickness -Change in Wound Grade/Stage No -Exudate Amt None Present Medium Small -Exudate Type Serosanguineous Serous -Wound Margin Distinct, Distinct, Outline Outline Attached Attached -Granulation Amt None Present (0 Medium (34-66%) %) -Granulation Quality N/A [place] -Necrosis Amt Large (67-100%) Small (1-33%) -Necrotic Tissue Type Adherent Slough Adherent Slough -Structure Exposed N/A -Texture ([place]da-wound Skin Appearance) No Abnormality, Assessed, Assessed Assessed Scarring -Moisture ([place]da-wound Skin Appearance) No Abnormality, Assessed, Assessed Assessed Maceration -Color ([place]-wound Skin Appearance) No Abnormality, No Abnormality, Assessed Assessed Assessed -Temperature ([place]-wound Skin No Abnormality No Abnormality No Abnormality Appearance) (Pt Warm) (Pt Warm) (Pt Warm) -Tenderness on Palpation ([place]da-wound No No Yes Skin Appearance) -Ulcer Cleansing Rinsed/ Rinsed/ Rinsed/ Irrigated with Irrigated with Irrigated with Saline Saline Saline -Foul Odor after Cleansing No No No -Anesthetic Used 4% Lidocaine 4% Lidocaine 5% Lidocaine Solution Solution Gel Lower Limb Edema Present No WC - Nurse 2 - General Ulcer CM Notes Start: 12/04/21 08:04 Freq: Status: Active Protocol: Activity Type Activity Date Activity User E-sign Co-sign Detail Recorded Client Recorded Date Recorded By Document 12/04/21 08:23 MW [id number] 12/04/21 08:28 MW Document 12/11/21 08:27 MW [id number] 12/11/21 08:30 MW Document 12/18/21 08:25 MW [id number] 12/18/21 08:27 MW 12/04/21 12/11/21 12/18/21 08:23 08:27 08:25 Wound Center Nurse 2 #1 left 2nd toe -Time 08:25 08:28 -Correct Patient Yes Yes -Correct Side, Site, Position Yes Yes -Correct Procedure Yes No -Procedure Performed Yes -Type of Procedure Debridement -Clinical Debridement Subcutaneous -Tissue Removed Subcutaneous -Post Debridement (cm) - Length 0.3 0 -Post Debridement (cm) - Width 1.5 0 -Post Debridement (cm) - Depth 0.2 0 -Total Square (Post) (cm) 0.45 0 -Area of Debridement (cm) - Length 0.3 -Area of Debridement (cm) - Width 1.5 -Total Square (Area) (cm) 0.45 -Tunneling No -Undermining/Tunneling No -Circular Undermining No -Wound/Ulcer Outcome Not Healed Healed- Epithelialized -Ulcer Cleansing Rinsed/ Irrigated with Saline -Foul Odor after Cleansing No -Bioengineered Tissue No -Bleeding Controlled with Pressure -Treatment Response Procedure Tolerated Well -Offloading No -Debridement - Subq, 1st 20sq cm No #2 Left Hallux -Time 08:24 08:27 08:25 -Correct Patient Yes Yes Yes -Correct Side, Site, Position Yes Yes Yes -Correct Procedure Yes Yes Yes -Procedure Performed Yes Yes Yes -Type of Procedure Debridement Debridement Debridement -Clinical Debridement Subcutaneous Subcutaneous Subcutaneous -Tissue Removed Subcutaneous Subcutaneous Subcutaneous -Post Debridement (cm) - Length 0.3 0.5 0.5 -Post Debridement (cm) - Width 0.3 0.4 0.5 -Post Debridement (cm) - Depth 0.2 0.2 0.2 -Total Square (Post) (cm) 0.09 0.20 0.25 -Area of Debridement (cm) - Length 0.3 0.5 0.5 -Area of Debridement (cm) - Width 0.3 0.4 0.5 -Total Square (Area) (cm) 0.09 0.20 0.25 -Tunneling No No No -Undermining/Tunneling No No No -Circular Undermining No No No -Wound/Ulcer Outcome Not Healed Not Healed Not Healed -Ulcer Cleansing Rinsed/ Rinsed/ Rinsed/ Irrigated with Irrigated with Irrigated with Saline Saline Saline -Foul Odor after Cleansing No No No -Bioengineered Tissue No No No -Bleeding Controlled with Pressure Pressure Pressure -Treatment Response Procedure Procedure Procedure Tolerated Well Tolerated Well Tolerated Well -Offloading No No No -Debridement - Subq, 1st 20sq cm Yes Yes Yes Pain Scale: 0-10 Numeric Is Patient Pain Free? Yes Yes Yes WC - Nurse 3 - General Ulcer D/C NN Start: 12/04/21 08:04 Freq: Status: Active Protocol: Activity Type Activity Date Activity User E-sign Co-sign Detail Recorded Client Recorded Date Recorded By Document 12/04/21 09:06 KR [id number] 12/04/21 09:07 KR Document 12/11/21 08:33 KR [id number] 12/11/21 08:34 KR Document 12/18/21 08:34 ML [id number] 12/18/21 08:35 ML 12/04/21 12/11/21 12/18/21 09:06 08:33 08:34 Wound Care Nurse 3 #1 left 2nd toe -Ulcer Cleansing Rinsed/ Irrigated with Saline -Primary Dressing Applied Aquacel Extra Aquacel Extra -Primary Dressing Covered/Secured with Dry Gauze, Dry Gauze, Secured with Secured with Tape Tape -Aquacel Extra 1 1 #2 Left Hallux -Ulcer Cleansing Rinsed/ Rinsed/ Rinsed/ Irrigated with Irrigated with Irrigated with Saline Saline Saline -Foul Odor after Cleansing No -Negative Pressure Wound Therapy N/A -Primary Dressing Applied Promogran Promogran Promogran -Primary Dressing Covered/Secured with Dry Gauze, Dry Gauze, Dry Gauze, Secured with Secured with Secured with Tape Tape Tape -Promogran 1 1 1 Pain Scale: 0-10 Numeric Is Patient Pain Free? Yes Yes Yes WC - Visit Discharge Discharge Condition Stable Stable Stable Ambulatory Status Ambulatory Ambulatory Ambulatory Transportation Private Auto Private Auto Private Auto Medication Reconcilliation completed & Yes provided to patient/care provider Clinical Summary of Care Provided Yes Assessment/Plan Assessment/Plan (1) Uncontrolled type 2 diabetes mellitus with hyperglycemia: CODE(S): E11.65 - Type 2 diabetes mellitus with hyperglycemia (2) Diabetic foot ulcer associated with type 2 diabetes mellitus: CODE(S): E11.621 - Type 2 diabetes mellitus with foot ulcer; L97.509 - Non-pressure chronic ulcer of other part of unspecified foot with unspecified severity QUALIFIERS: Diabetic foot ulcer location: toe Laterality: left Non-pressure ulcer stage: unspecified non-pressure ulcer stage Qualified Code(s): E11.621 - Type 2 diabetes mellitus with foot ulcer; L97.529 - Non- pressure chronic ulcer of other part of left foot with unspecified severity PLAN: Wash left foot and in between toes with antibacterial soap. Promogran to wound base pack well at left hallux. Continue changing socks twice a day for moisture wicking Follow-up in 1 week (3) Open wound of foot: CODE(S): S91.309A - Unspecified open wound, unspecified foot, initial encounter QUALIFIERS: Encounter type: initial encounter Laterality: left Qualified Code(s): S91.302A - Unspecified open wound, left foot, initial encounter (4) Nonhealing nonsurgical wound: CODE(S): T14.8XXA - Other injury of unspecified body region, initial encounter
[2021-12-25 08:03] VITALS: BP 138/80; PULSE 83; TEMP 36.1
--- NOTE | 2021-12-25 09:23 | PN.PCM_ITS ---
History of Present Illness Date of Service: 12/25/21 Chief Complaint: Follow-up left second toe and left hallux History of Wound: 65-year-old white male with type 2 diabetes semi well- controlled. He appears to have Charcot of the right foot and a collapsed right arch. Appears with a nonhealing wound to his left second toe under the nail dorsal side and cellulitis to the whole toe. Also back in June developed a blister while on vacation wearing different shoes on the left hallux, that still has not closed and is a small open area full-thickness. Progress of Wound: Left second toe continues to be healed. Patient has finished his Diflucan for the fungal infection in his foot which appears to be doing much better. Left hallux wound is still open pare down the edges better this time made flatter with a #7 curette patient tolerated well we will continue with the Promogran for treatment. Subjective Subjective Patient has no concerns at this time Objective Data Objective Data Left second toe healed left hallux still open paring down callus the skin around the edge. Vital Signs: Vital Signs Temp Pulse Resp BP 97.0 F L 83 16 138/80 H 12/25/21 08:03 12/25/21 08:03 12/18/21 08:04 12/25/21 08:03 Physical Exam Const oriented x3 General Appearance: cooperative Exam Limitations: no limitations HEENT normocephalic Head and Scalp: normal to inspection Face and Sinus: normal facial exam Nose: external nose normal General Ear: hearing grossly impaired External Ear: external ears normal Mouth: oral and palatal mucosa normal Eyes PERRL General Eye: normal appearance of both eyes Neck full ROM General: normal visual inspection Resp normal respiratory effort Effort and Inspection: able to speak in complete sentences Auscultation: clear to auscultation bilaterally Cardio regular rate and regular rhythm Palpation: normal PMI Rate: regular rate Rhythm: regular rhythm GI Auscultation: normoactive bowel sounds Palpation: soft and no hepatosplenomegaly external exam normal Back/Spine Cervical Spine: cervical ROM normal Thoracic Spine / Upper Back: normal to inspection Lumbar Spine / Lower Back: normal to inspection Extremity normal to inspection General Extremity: normal exam except as noted Skin no rashes or lesions noted Neuro oriented x3 Psych Appearance: grossly normal Speech: normal speech Thought Content: normal thought content Judgement: judgement good Debridement Note Debridement Note Wound debrided: Left hallux Wound Grade/Stage: Stage II diabetic foot ulcer Type of Debridement: Excisional debridement Anesthesia Used: 5% Lidocaine Gel Depth: Down to and including healthy tissue Percentage of wound debrided: 100 Instrument Used: 7mm curette Tissue Removed: Fibrin callus Severity: Limited To Skin Breakdown Post-Debridement Measurements and Additional Note: Post-Debridement Measurements/Treatment DOMINIQUE - Nurse 1 - General Ulcer Assessment Start: 12/04/21 08:04 Freq: Status: Active Protocol: AIXA Activity Type Activity Date Activity User E-sign Co-sign Detail Recorded Client Recorded Date Recorded By Document 12/04/21 08:04 AK [id number] 12/04/21 08:16 AK Document 12/11/21 08:05 KR [id number] 12/11/21 08:06 KR Document 12/18/21 08:04 ML [id number] 12/18/21 08:14 ML Document 12/25/21 08:03 AK [id number] 12/25/21 08:04 AK 12/04/21 12/11/21 12/18/21 08:04 08:05 08:04 - Today's Visit Information Type of service Follow-up Visit Follow-up Visit Follow-up Visit (Physician/SUPERVISOR FACEPIECE LINE (Physician/SUPERVISOR FACEPIECE LINE (Physician/SUPERVISOR FACEPIECE LINE ) ) ) Arrival Mode Ambulatory Ambulatory Ambulatory Transfer Assistance None Patient Identification Verified (Name & Yes Yes Yes ) Patient Requires Transmission-Based No No Precautions Safety Precautions NA NA Vital Signs Temperature (97.8 F-99.1 F) 96.7 F L 97.0 F L 97.2 F L Temperature Source Temporal Temporal Temporal Pulse Rate (60-100) 79 82 82 Pulse Location Monitor Monitor Monitor Respiratory Rate (12-18) 16 Respiratory rate source Observation Blood Pressure (90/60-120/80) 120/73 119/72 136/79 H Blood Pressure Mean (mm Hg) 88 87 98 Source Monitor Monitor Monitor Position Sitting Sitting Blood Pressure Location Right Arm Right Arm History Since Last Visit- (Skip if this is Patient's initial visit) Have you changed medications since your No No No last visit? Any new allergies or adverse reactions No No No Had a fall/change in ADL's that may No No No increase risk of falls Signs or symptoms of abuse and/or No No No neglect since last visit Have you been in the hospital since your No No No last visit? Has dressing in place as prescribed Yes Yes Yes Has compression in place as prescribed N/A N/A N/A Has offloadiing in place as prescribed N/A N/A N/A Experienced any changes in pain level or No No No management Left Footwear Regular Shoe Regular Shoe Regular Shoe Right Footwear Regular Shoe Regular Shoe Regular Shoe Pain Scale: 0-10 Numeric Is Patient Pain Free? Yes Yes Yes 12/25/21 08:03 - Today's Visit Information Type of service Follow-up Visit (Physician/SUPERVISOR FACEPIECE LINE ) Arrival Mode Ambulatory Transfer Assistance Patient Identification Verified (Name & Yes ) Patient Requires Transmission-Based Precautions Safety Precautions Vital Signs Temperature (97.8 F-99.1 F) 97.0 F L Temperature Source Temporal Pulse Rate (60-100) 83 Pulse Location Monitor Respiratory Rate (12-18) Respiratory rate source Blood Pressure (90/60-120/80) 138/80 H Blood Pressure Mean (mm Hg) 99 Source Monitor Position Sitting Blood Pressure Location Left Arm History Since Last Visit- (Skip if this is Patient's initial visit) Have you changed medications since your No last visit? Any new allergies or adverse reactions No Had a fall/change in ADL's that may No increase risk of falls Signs or symptoms of abuse and/or No neglect since last visit Have you been in the hospital since your No last visit? Has dressing in place as prescribed Yes Has compression in place as prescribed N/A Has offloadiing in place as prescribed N/A Experienced any changes in pain level or No management Left Footwear Regular Shoe Right Footwear Regular Shoe Pain Scale: 0-10 Numeric Is Patient Pain Free? Yes - Nurse 1 - General Ulcer Measurement Start: 12/04/21 08:04 Freq: Status: Active Protocol: Activity Type Activity Date Activity User E-sign Co-sign Detail Recorded Client Recorded Date Recorded By Document 12/04/21 08:04 AK [id number] 12/04/21 08:16 AK Document 12/11/21 08:05 KR [id number] 12/11/21 08:06 KR Document 12/18/21 08:04 ML [id number] 12/18/21 08:14 ML Document 12/25/21 08:03 AK [id number] 12/25/21 08:04 AK 12/04/21 12/11/21 12/18/21 08:04 08:05 08:04 Wound Center Nurse 1 #1 left 2nd toe -Combined with other wound No -Current Size (cm) - Length 0.5 0.2 0.1 -Current Size (cm) - Width 1.6 1.5 0.1 -Current Size (cm) - Depth 0.3 0.1 0.1 -Total Square Cm 0.80 0.30 0.01 -Date of Last Picture (Recall this 12/04/21 field) -Photo Taken Yes -Epithelialization None Present Large 67-100% -Tunneling No -Undermining/Tunneling No -Circular Undermining No -Change in Wound Grade/Stage No -Exudate Amt None Present Small None Present -Exudate Type Serosanguineous -Wound Margin Distinct, Distinct, Distinct, Outline Outline Outline Attached Attached Attached -Granulation Amt None Present (0 None Present (0 %) %) -Granulation Quality N/A -Slough/Fibrin Yes No -Necrosis Amt Large (67-100%) Large (67-100%) None Present (0 %) -Necrotic Tissue Type Adherent Slough Adherent Slough -Structure Exposed N/A -Texture ([place]da-wound Skin Appearance) No Abnormality, Assessed, Assessed Assessed Scarring -Moisture ([place]-wound Skin Appearance) No Abnormality, No Abnormality, Assessed Assessed Assessed -Color ([place]-wound Skin Appearance) No Abnormality, No Abnormality, Assessed Assessed Assessed -Temperature ([place]-wound Skin No Abnormality No Abnormality No Abnormality Appearance) (Pt Warm) (Pt Warm) (Pt Warm) -Tenderness on Palpation ([place]da-wound No No No Skin Appearance) -Ulcer Cleansing Rinsed/ Rinsed/ Rinsed/ Irrigated with Irrigated with Irrigated with Saline Saline Saline -Foul Odor after Cleansing No No No -Anesthetic Used 4% Lidocaine 4% Lidocaine 5% Lidocaine Solution Solution Gel #2 Left Hallux -Combined with other wound No -Current Size (cm) - Length 0.2 0.4 0.3 -Current Size (cm) - Width 0.2 0.3 0.3 -Current Size (cm) - Depth 0.2 0.3 0.3 -Total Square Cm 0.04 0.12 0.09 -Date of Last Picture (Recall this 12/04/21 field) -Photo Taken Yes -Epithelialization None Present -Tunneling No -Undermining/Tunneling No -Circular Undermining No -Classification - Thickness Partial Thickness -Change in Wound Grade/Stage No -Exudate Amt None Present Medium Small -Exudate Type Serosanguineous Serous -Wound Margin Distinct, Distinct, Outline Outline Attached Attached -Granulation Amt None Present (0 Medium (34-66%) %) -Granulation Quality N/A [place] -Necrosis Amt Large (67-100%) Small (1-33%) -Necrotic Tissue Type Adherent Slough Adherent Slough -Structure Exposed N/A -Texture ([place]elda-wound Skin Appearance) No Abnormality, Assessed, Assessed Assessed Scarring -Moisture ([place]da-wound Skin Appearance) No Abnormality, Assessed, Assessed Assessed Maceration -Color ([place]da-wound Skin Appearance) No Abnormality, No Abnormality, Assessed Assessed Assessed -Temperature ([place]-wound Skin No Abnormality No Abnormality No Abnormality Appearance) (Pt Warm) (Pt Warm) (Pt Warm) -Tenderness on Palpation ([place]da-wound No No Yes Skin Appearance) -Ulcer Cleansing Rinsed/ Rinsed/ Rinsed/ Irrigated with Irrigated with Irrigated with Saline Saline Saline -Foul Odor after Cleansing No No No -Anesthetic Used 4% Lidocaine 4% Lidocaine 5% Lidocaine Solution Solution Gel Lower Limb Edema Present No 12/25/21 08:03 Wound Center Nurse 1 #1 left 2nd toe -Combined with other wound -Current Size (cm) - Length -Current Size (cm) - Width -Current Size (cm) - Depth -Total Square Cm -Date of Last Picture (Recall this field) -Photo Taken -Epithelialization -Tunneling -Undermining/Tunneling -Circular Undermining -Change in Wound Grade/Stage -Exudate Amt -Exudate Type -Wound Margin -Granulation Amt -Granulation Quality -Slough/Fibrin -Necrosis Amt -Necrotic Tissue Type -Structure Exposed -Texture (Gricelda-wound Skin Appearance) -Moisture (Gricelda-wound Skin Appearance) -Color ([place]da-wound Skin Appearance) -Temperature ([place]da-wound Skin Appearance) -Tenderness on Palpation (Gricelda-wound Skin Appearance) -Ulcer Cleansing -Foul Odor after Cleansing -Anesthetic Used #2 Left Hallux -Combined with other wound -Current Size (cm) - Length 0.2 -Current Size (cm) - Width 0.2 -Current Size (cm) - Depth 0.2 -Total Square Cm 0.04 -Date of Last Picture (Recall this field) -Photo Taken -Epithelialization -Tunneling -Undermining/Tunneling -Circular Undermining -Classification - Thickness -Change in Wound Grade/Stage -Exudate Amt Small -Exudate Type Serosanguineous -Wound Margin Distinct, Outline Attached -Granulation Amt Small (1-33%) -Granulation Quality [place] -Necrosis Amt -Necrotic Tissue Type -Structure Exposed -Texture (Gricelda-wound Skin Appearance) Assessed, Scarring -Moisture ([place]da-wound Skin Appearance) No Abnormality, Assessed -Color ([place]da-wound Skin Appearance) No Abnormality, Assessed -Temperature ([place]-wound Skin No Abnormality Appearance) (Pt Warm) -Tenderness on Palpation ([place]elda-wound No Skin Appearance) -Ulcer Cleansing Rinsed/ Irrigated with Saline -Foul Odor after Cleansing No -Anesthetic Used 4% Lidocaine Solution Lower Limb Edema Present WC - Nurse 2 - General Ulcer CM Notes Start: 12/04/21 08:04 Freq: Status: Active Protocol: Activity Type Activity Date Activity User E-sign Co-sign Detail Recorded Client Recorded Date Recorded By Document 12/04/21 08:23 MW [id number] 12/04/21 08:28 MW Document 12/11/21 08:27 MW [id number] 12/11/21 08:30 MW Document 12/18/21 08:25 MW [id number] 12/18/21 08:27 MW Document 12/25/21 08:21 MW [id number] 12/25/21 08:22 MW 12/04/21 12/11/21 12/18/21 08:23 08:27 08:25 Wound Center Nurse 2 #1 left 2nd toe -Time 08:25 08:28 -Correct Patient Yes Yes -Correct Side, Site, Position Yes Yes -Correct Procedure Yes No -Procedure Performed Yes -Type of Procedure Debridement -Clinical Debridement Subcutaneous -Tissue Removed Subcutaneous -Post Debridement (cm) - Length 0.3 0 -Post Debridement (cm) - Width 1.5 0 -Post Debridement (cm) - Depth 0.2 0 -Total Square (Post) (cm) 0.45 0 -Area of Debridement (cm) - Length 0.3 -Area of Debridement (cm) - Width 1.5 -Total Square (Area) (cm) 0.45 -Tunneling No -Undermining/Tunneling No -Circular Undermining No -Wound/Ulcer Outcome Not Healed Healed- Epithelialized -Ulcer Cleansing Rinsed/ Irrigated with Saline -Foul Odor after Cleansing No -Bioengineered Tissue No -Bleeding Controlled with Pressure -Treatment Response Procedure Tolerated Well -Offloading No -Debridement - Subq, 1st 20sq cm No #2 Left Hallux -Time 08:24 08:27 08:25 -Correct Patient Yes Yes Yes -Correct Side, Site, Position Yes Yes Yes -Correct Procedure Yes Yes Yes -Procedure Performed Yes Yes Yes -Type of Procedure Debridement Debridement Debridement -Clinical Debridement Subcutaneous Subcutaneous Subcutaneous -Tissue Removed Subcutaneous Subcutaneous Subcutaneous -Post Debridement (cm) - Length 0.3 0.5 0.5 -Post Debridement (cm) - Width 0.3 0.4 0.5 -Post Debridement (cm) - Depth 0.2 0.2 0.2 -Total Square (Post) (cm) 0.09 0.20 0.25 -Area of Debridement (cm) - Length 0.3 0.5 0.5 -Area of Debridement (cm) - Width 0.3 0.4 0.5 -Total Square (Area) (cm) 0.09 0.20 0.25 -Tunneling No No No -Undermining/Tunneling No No No -Circular Undermining No No No -Wound/Ulcer Outcome Not Healed Not Healed Not Healed -Ulcer Cleansing Rinsed/ Rinsed/ Rinsed/ Irrigated with Irrigated with Irrigated with Saline Saline Saline -Foul Odor after Cleansing No No No -Bioengineered Tissue No No No -Bleeding Controlled with Pressure Pressure Pressure -Treatment Response Procedure Procedure Procedure Tolerated Well Tolerated Well Tolerated Well -Offloading No No No -Debridement - Subq, 1st 20sq cm Yes Yes Yes Pain Scale: 0-10 Numeric Is Patient Pain Free? Yes Yes Yes 12/25/21 08:21 Wound Center Nurse 2 #1 left 2nd toe -Time -Correct Patient -Correct Side, Site, Position -Correct Procedure -Procedure Performed -Type of Procedure -Clinical Debridement -Tissue Removed -Post Debridement (cm) - Length -Post Debridement (cm) - Width -Post Debridement (cm) - Depth -Total Square (Post) (cm) -Area of Debridement (cm) - Length -Area of Debridement (cm) - Width -Total Square (Area) (cm) -Tunneling -Undermining/Tunneling -Circular Undermining -Wound/Ulcer Outcome -Ulcer Cleansing -Foul Odor after Cleansing -Bioengineered Tissue -Bleeding Controlled with -Treatment Response -Offloading -Debridement - Subq, 1st 20sq cm #2 Left Hallux -Time 08:21 -Correct Patient Yes -Correct Side, Site, Position Yes -Correct Procedure Yes -Procedure Performed Yes -Type of Procedure Debridement -Clinical Debridement Subcutaneous -Tissue Removed Subcutaneous -Post Debridement (cm) - Length 0.2 -Post Debridement (cm) - Width 0.3 -Post Debridement (cm) - Depth 0.1 -Total Square (Post) (cm) 0.06 -Area of Debridement (cm) - Length 0.2 -Area of Debridement (cm) - Width 0.3 -Total Square (Area) (cm) 0.06 -Tunneling No -Undermining/Tunneling No -Circular Undermining No -Wound/Ulcer Outcome Not Healed -Ulcer Cleansing Rinsed/ Irrigated with Saline -Foul Odor after Cleansing No -Bioengineered Tissue No -Bleeding Controlled with Pressure -Treatment Response Procedure Tolerated Well -Offloading No -Debridement - Subq, 1st 20sq cm Yes Pain Scale: 0-10 Numeric Is Patient Pain Free? Yes WC - Nurse 3 - General Ulcer D/C NN Start: 12/04/21 08:04 Freq: Status: Active Protocol: Activity Type Activity Date Activity User E-sign Co-sign Detail Recorded Client Recorded Date Recorded By Document 12/04/21 09:06 KR [id number] 12/04/21 09:07 KR Document 12/11/21 08:33 KR [id number] 12/11/21 08:34 KR Document 12/18/21 08:34 ML [id number] 12/18/21 08:35 ML Document 12/25/21 08:28 AK [id number] 12/25/21 08:29 AK 12/04/21 12/11/21 12/18/21 09:06 08:33 08:34 Wound Care Nurse 3 #1 left 2nd toe -Ulcer Cleansing Rinsed/ Irrigated with Saline -Primary Dressing Applied Aquacel Extra Aquacel Extra -Primary Dressing Covered/Secured with Dry Gauze, Dry Gauze, Secured with Secured with Tape Tape -Aquacel Extra 1 1 #2 Left Hallux -Ulcer Cleansing Rinsed/ Rinsed/ Rinsed/ Irrigated with Irrigated with Irrigated with Saline Saline Saline -Foul Odor after Cleansing No -Negative Pressure Wound Therapy N/A -Primary Dressing Applied Promogran Promogran Promogran -Primary Dressing Covered/Secured with Dry Gauze, Dry Gauze, Dry Gauze, Secured with Secured with Secured with Tape Tape Tape -Promogran 1 1 1 -Promogran Zohreh Matter Pain Scale: 0-10 Numeric Is Patient Pain Free? Yes Yes Yes WC - Visit Discharge Discharge Condition Stable Stable Stable Ambulatory Status Ambulatory Ambulatory Ambulatory Transportation Private Auto Private Auto Private Auto Medication Reconcilliation completed & Yes provided to patient/care provider Clinical Summary of Care Provided Yes 12/25/21 08:28 Wound Care Nurse 3 #1 left 2nd toe -Ulcer Cleansing -Primary Dressing Applied -Primary Dressing Covered/Secured with -Aquacel Extra #2 Left Hallux -Ulcer Cleansing Rinsed/ Irrigated with Saline -Foul Odor after Cleansing No -Negative Pressure Wound Therapy N/A -Primary Dressing Applied Promogran Zohreh Matter -Primary Dressing Covered/Secured with Dry Gauze, Secured with Tape -Promogran -Promogran Zohreh Matter 1 Pain Scale: 0-10 Numeric Is Patient Pain Free? Yes WC - Visit Discharge Discharge Condition Stable Ambulatory Status Ambulatory Transportation Private Auto Medication Reconcilliation completed & Yes provided to patient/care provider Clinical Summary of Care Provided Yes Assessment/Plan Assessment/Plan (1) Uncontrolled type 2 diabetes mellitus with hyperglycemia: CODE(S): E11.65 - Type 2 diabetes mellitus with hyperglycemia (2) Diabetic foot ulcer associated with type 2 diabetes mellitus: CODE(S): E11.621 - Type 2 diabetes mellitus with foot ulcer; L97.509 - Non-pressure chronic ulcer of other part of unspecified foot with unspecified severity QUALIFIERS: Diabetic foot ulcer location: toe Laterality: left Non-pressure ulcer stage: unspecified non-pressure ulcer stage Qualified Code(s): E11.621 - Type 2 diabetes mellitus with foot ulcer; L97.529 - Non- pressure chronic ulcer of other part of left foot with unspecified severity PLAN: Wash left foot and in between toes with antibacterial soap. Promogran to wound base pack well at left hallux. Continue changing socks twice a day for moisture wicking Follow-up in 1 week (3) Open wound of foot: CODE(S): S91.309A - Unspecified open wound, unspecified foot, initial encounter QUALIFIERS: Encounter type: initial encounter Laterality: left Qualified Code(s): S91.302A - Unspecified open wound, left foot, initial encounter (4) Nonhealing nonsurgical wound: CODE(S): T14.8XXA - Other injury of unspecified body region, initial encounter
[2022-01-01 08:04] VITALS: BP 135/80; PULSE 87; RESP 16; TEMP 36.2
--- NOTE | 2022-01-01 09:13 | PCM.WC.PN ---
History of Present Illness Date of Service: 01/01/22 Chief Complaint: Follow-up left second toe and left hallux History of Wound: 65-year-old white male with type 2 diabetes semi well-controlled. He appears to have Charcot of the right foot and a collapsed right arch. Appears with a nonhealing wound to his left second toe under the nail dorsal side and cellulitis to the whole toe. Also back in June developed a blister while on vacation wearing different shoes on the left hallux, that still has not closed and is a small open area full-thickness. Progress of Wound: Left second toe continues to be healed. Patient has finished his Diflucan for the fungal infection in his foot which appears to be doing much better. Left hallux wound is still open continually paring down the edges better this time made flatter with a #7 curette and 15 blade patient tolerated well we will continue with the Promogran for treatment. Subjective Subjective Patient has no concerns at this time Objective Data Objective Data As written above still open has a base but it is just a divot that needs to be filled and. Again pared down with #15 blade and a #7 curette to get all of the macerated skin and callus see area off and around the perimeter. Roughed up the center and repeated cultures on that hallux. Developing some redness around the wound area. Vital Signs: Vital Signs Temp Pulse Resp BP 97.1 F L 87 16 135/80 H 01/01/22 08:04 01/01/22 08:04 01/01/22 08:04 01/01/22 08:04 Physical Exam Const oriented x3 General Appearance: cooperative Exam Limitations: no limitations HEENT normocephalic Head and Scalp: normal to inspection Face and Sinus: normal facial exam Nose: external nose normal General Ear: hearing grossly impaired External Ear: external ears normal Mouth: oral and palatal mucosa normal Eyes PERRL General Eye: normal appearance of both eyes Neck full ROM General: normal visual inspection Resp normal respiratory effort Effort and Inspection: able to speak in complete sentences Auscultation: clear to auscultation bilaterally Cardio regular rate and regular rhythm Palpation: normal PMI Rate: regular rate Rhythm: regular rhythm GI Auscultation: normoactive bowel sounds Palpation: soft and no hepatosplenomegaly external exam normal Back/Spine Cervical Spine: cervical ROM normal Thoracic Spine / Upper Back: normal to inspection Lumbar Spine / Lower Back: normal to inspection Extremity normal to inspection General Extremity: normal exam except as noted Skin no rashes or lesions noted Neuro oriented x3 Psych Appearance: grossly normal Speech: normal speech Thought Content: normal thought content Judgement: judgement good Debridement Note Debridement Note Wound debrided: Left hallux Laterality: Left Wound Grade/Stage: Stage II diabetic foot ulcer Type of Debridement: Excisional debridement Anesthesia Used: 4% Lidocaine Solution and 5% Lidocaine Gel Depth: Down to and including healthy tissue Percentage of wound debrided: 100 Instrument Used: 7mm curette and #15 blade Tissue Removed: Callus fibrin Severity: Limited To Skin Breakdown Amount of bleeding with debridement: Mild Bleeding Controlled with: Compression and gauze Patient tolerated procedure: Patient tolerated procedure well Post-Debridement Measurements and Additional Note: Post-Debridement Measurements/Treatment - Nurse 1 - General Ulcer Assessment Start: 12/04/21 08:04 Freq: Status: Active Protocol: AIXA Activity Type Activity Date Activity User E-sign Co-sign Detail Recorded Client Recorded Date Recorded By Document 12/04/21 08:04 AK [id number] 12/04/21 08:16 AK Document 12/11/21 08:05 KR [id number] 12/11/21 08:06 KR Document 12/18/21 08:04 ML [id number] 12/18/21 08:14 ML Document 12/25/21 08:03 AK [id number] 12/25/21 08:04 AK Document 01/01/22 08:04 ML [id number] 01/01/22 08:07 ML 12/04/21 12/11/21 12/18/21 08:04 08:05 08:04 - Today's Visit Information Type of service Follow-up Visit Follow-up Visit Follow-up Visit (Physician/CLINICAL INFORMATICS DIRECTOR (Physician/CLINICAL INFORMATICS DIRECTOR (Physician/CLINICAL INFORMATICS DIRECTOR ) ) ) Arrival Mode Ambulatory Ambulatory Ambulatory Transfer Assistance None Patient Identification Verified (Name & Yes Yes Yes ) Patient Requires Transmission-Based No No Precautions Safety Precautions NA NA Vital Signs Temperature (97.8 F-99.1 F) 96.7 F L 97.0 F L 97.2 F L Temperature Source Temporal Temporal Temporal Pulse Rate (60-100) 79 82 82 Pulse Location Monitor Monitor Monitor Respiratory Rate (12-18) 16 Respiratory rate source Observation Blood Pressure (90/60-120/80) 120/73 119/72 136/79 H Blood Pressure Mean (mm Hg) 88 87 98 Source Monitor Monitor Monitor Position Sitting Sitting Blood Pressure Location Right Arm Right Arm History Since Last Visit- (Skip if this is Patient's initial visit) Have you changed medications since your No No No last visit? Any new allergies or adverse reactions No No No Had a fall/change in ADL's that may No No No increase risk of falls Signs or symptoms of abuse and/or No No No neglect since last visit Have you been in the hospital since your No No No last visit? Has dressing in place as prescribed Yes Yes Yes Has compression in place as prescribed N/A N/A N/A Has offloadiing in place as prescribed N/A N/A N/A Experienced any changes in pain level or No No No management Left Footwear Regular Shoe Regular Shoe Regular Shoe Right Footwear Regular Shoe Regular Shoe Regular Shoe Pain Scale: 0-10 Numeric Is Patient Pain Free? Yes Yes Yes 12/25/21 01/01/22 08:03 08:04 WC - Today's Visit Information Type of service Follow-up Visit Follow-up Visit (Physician/CLINICAL INFORMATICS DIRECTOR (Physician/CLINICAL INFORMATICS DIRECTOR ) ) Arrival Mode Ambulatory Ambulatory Transfer Assistance None Patient Identification Verified (Name & Yes Yes ) Patient Requires Transmission-Based No Precautions Safety Precautions NA Vital Signs Temperature (97.8 F-99.1 F) 97.0 F L 97.1 F L Temperature Source Temporal Temporal Pulse Rate (60-100) 83 87 Pulse Location Monitor Monitor Respiratory Rate (12-18) 16 Respiratory rate source Observation Blood Pressure (90/60-120/80) 138/80 H 135/80 H Blood Pressure Mean (mm Hg) 99 98 Source Monitor Monitor Position Sitting Sitting Blood Pressure Location Left Arm Left Arm History Since Last Visit- (Skip if this is Patient's initial visit) Have you changed medications since your No No last visit? Any new allergies or adverse reactions No No Had a fall/change in ADL's that may No No increase risk of falls Signs or symptoms of abuse and/or No No neglect since last visit Have you been in the hospital since your No No last visit? Has dressing in place as prescribed Yes Yes Has compression in place as prescribed N/A N/A Has offloadiing in place as prescribed N/A N/A Experienced any changes in pain level or No No management Left Footwear Regular Shoe Regular Shoe Right Footwear Regular Shoe Regular Shoe Pain Scale: 0-10 Numeric Is Patient Pain Free? Yes Yes WC - Nurse 1 - General Ulcer Measurement Start: 12/04/21 08:04 Freq: Status: Active Protocol: Activity Type Activity Date Activity User E-sign Co-sign Detail Recorded Client Recorded Date Recorded By Document 12/04/21 08:04 AK [id number] 12/04/21 08:16 AK Document 12/11/21 08:05 KR [id number] 12/11/21 08:06 KR Document 12/18/21 08:04 ML [id number] 12/18/21 08:14 ML Document 12/25/21 08:03 AK [id number] 12/25/21 08:04 AK Document 01/01/22 08:04 ML [id number] 01/01/22 08:07 ML 12/04/21 12/11/21 12/18/21 08:04 08:05 08:04 Wound Center Nurse 1 #1 left 2nd toe -Combined with other wound No -Current Size (cm) - Length 0.5 0.2 0.1 -Current Size (cm) - Width 1.6 1.5 0.1 -Current Size (cm) - Depth 0.3 0.1 0.1 -Total Square Cm 0.80 0.30 0.01 -Date of Last Picture (Recall this 12/04/21 field) -Photo Taken Yes -Epithelialization None Present Large 67-100% -Tunneling No -Undermining/Tunneling No -Circular Undermining No -Change in Wound Grade/Stage No -Exudate Amt None Present Small None Present -Exudate Type Serosanguineous -Wound Margin Distinct, Distinct, Distinct, Outline Outline Outline Attached Attached Attached -Granulation Amt None Present (0 None Present (0 %) %) -Granulation Quality N/A -Slough/Fibrin Yes No -Necrosis Amt Large (67-100%) Large (67-100%) None Present (0 %) -Necrotic Tissue Type Adherent Slough Adherent Slough -Structure Exposed N/A -Texture (Gricelda-wound Skin Appearance) No Abnormality, Assessed, Assessed Assessed Scarring -Moisture (Gricelda-wound Skin Appearance) No Abnormality, No Abnormality, Assessed Assessed Assessed -Color (Gricelda-wound Skin Appearance) No Abnormality, No Abnormality, Assessed Assessed Assessed -Temperature (Gricelda-wound Skin No Abnormality No Abnormality No Abnormality Appearance) (Pt Warm) (Pt Warm) (Pt Warm) -Tenderness on Palpation (Gricelda-wound No No No Skin Appearance) -Ulcer Cleansing Rinsed/ Rinsed/ Rinsed/ Irrigated with Irrigated with Irrigated with Saline Saline Saline -Foul Odor after Cleansing No No No -Anesthetic Used 4% Lidocaine 4% Lidocaine 5% Lidocaine Solution Solution Gel #2 Left Hallux -Combined with other wound No -Current Size (cm) - Length 0.2 0.4 0.3 -Current Size (cm) - Width 0.2 0.3 0.3 -Current Size (cm) - Depth 0.2 0.3 0.3 -Total Square Cm 0.04 0.12 0.09 -Date of Last Picture (Recall this 12/04/21 field) -Photo Taken Yes -Epithelialization None Present -Tunneling No -Undermining/Tunneling No -Circular Undermining No -Classification - Thickness Partial Thickness -Change in Wound Grade/Stage No -Exudate Amt None Present Medium Small -Exudate Type Serosanguineous Serous -Wound Margin Distinct, Distinct, Outline Outline Attached Attached -Granulation Amt None Present (0 Medium (34-66%) %) -Granulation Quality N/A [place] -Slough/Fibrin -Necrosis Amt Large (67-100%) Small (1-33%) -Necrotic Tissue Type Adherent Slough Adherent Slough -Structure Exposed N/A -Texture (Gricelda-wound Skin Appearance) No Abnormality, Assessed, Assessed Assessed Scarring -Moisture (Gricelda-wound Skin Appearance) No Abnormality, Assessed, Assessed Assessed Maceration -Color (Gricelda-wound Skin Appearance) No Abnormality, No Abnormality, Assessed Assessed Assessed -Temperature (Gricelda-wound Skin No Abnormality No Abnormality No Abnormality Appearance) (Pt Warm) (Pt Warm) (Pt Warm) -Tenderness on Palpation (Gricelda-wound No No Yes Skin Appearance) -Ulcer Cleansing Rinsed/ Rinsed/ Rinsed/ Irrigated with Irrigated with Irrigated with Saline Saline Saline -Foul Odor after Cleansing No No No -Anesthetic Used 4% Lidocaine 4% Lidocaine 5% Lidocaine Solution Solution Gel Lower Limb Edema Present No 12/25/21 01/01/22 08:03 08:04 Wound Center Nurse 1 #1 left 2nd toe -Combined with other wound -Current Size (cm) - Length -Current Size (cm) - Width -Current Size (cm) - Depth -Total Square Cm -Date of Last Picture (Recall this field) -Photo Taken -Epithelialization -Tunneling -Undermining/Tunneling -Circular Undermining -Change in Wound Grade/Stage -Exudate Amt -Exudate Type -Wound Margin -Granulation Amt -Granulation Quality -Slough/Fibrin -Necrosis Amt -Necrotic Tissue Type -Structure Exposed -Texture (Gricelda-wound Skin Appearance) -Moisture (Gricelda-wound Skin Appearance) -Color (Gricelda-wound Skin Appearance) -Temperature (Gricelda-wound Skin Appearance) -Tenderness on Palpation (Gricelda-wound Skin Appearance) -Ulcer Cleansing -Foul Odor after Cleansing -Anesthetic Used #2 Left Hallux -Combined with other wound -Current Size (cm) - Length 0.2 0.2 -Current Size (cm) - Width 0.2 0.2 -Current Size (cm) - Depth 0.2 0.2 -Total Square Cm 0.04 0.04 -Date of Last Picture (Recall this field) -Photo Taken -Epithelialization -Tunneling -Undermining/Tunneling -Circular Undermining -Classification - Thickness -Change in Wound Grade/Stage -Exudate Amt Small Small -Exudate Type Serosanguineous Serosanguineous -Wound Margin Distinct, Distinct, Outline Outline Attached Attached -Granulation Amt Small (1-33%) Large (67-100%) -Granulation Quality [place] Pale -Slough/Fibrin No -Necrosis Amt None Present (0 %) -Necrotic Tissue Type -Structure Exposed -Texture (Gricelda-wound Skin Appearance) Assessed, Assessed Scarring -Moisture (Gricelda-wound Skin Appearance) No Abnormality, Assessed Assessed -Color (Gricelda-wound Skin Appearance) No Abnormality, Assessed Assessed -Temperature (Gricelda-wound Skin No Abnormality Appearance) (Pt Warm) -Tenderness on Palpation (Gricelda-wound No Skin Appearance) -Ulcer Cleansing Rinsed/ Rinsed/ Irrigated with Irrigated with Saline Saline -Foul Odor after Cleansing No No -Anesthetic Used 4% Lidocaine 4% Lidocaine Solution Solution Lower Limb Edema Present WC - Nurse 2 - General Ulcer CM Notes Start: 12/04/21 08:04 Freq: Status: Active Protocol: Activity Type Activity Date Activity User E-sign Co-sign Detail Recorded Client Recorded Date Recorded By Document 12/04/21 08:23 MW [id number] 12/04/21 08:28 MW Document 12/11/21 08:27 MW [id number] 12/11/21 08:30 MW Document 12/18/21 08:25 MW [id number] 12/18/21 08:27 MW Document 12/25/21 08:21 MW [id number] 12/25/21 08:22 MW Document 01/01/22 08:20 MW [id number] 01/01/22 08:23 MW 12/04/21 12/11/21 12/18/21 08:23 08:27 08:25 Wound Center Nurse 2 #1 left 2nd toe -Time 08:25 08:28 -Correct Patient Yes Yes -Correct Side, Site, Position Yes Yes -Correct Procedure Yes No -Procedure Performed Yes -Type of Procedure Debridement -Clinical Debridement Subcutaneous -Tissue Removed Subcutaneous -Post Debridement (cm) - Length 0.3 0 -Post Debridement (cm) - Width 1.5 0 -Post Debridement (cm) - Depth 0.2 0 -Total Square (Post) (cm) 0.45 0 -Area of Debridement (cm) - Length 0.3 -Area of Debridement (cm) - Width 1.5 -Total Square (Area) (cm) 0.45 -Tunneling No -Undermining/Tunneling No -Circular Undermining No -Wound/Ulcer Outcome Not Healed Healed- Epithelialized -Ulcer Cleansing Rinsed/ Irrigated with Saline -Foul Odor after Cleansing No -Bioengineered Tissue No -Bleeding Controlled with Pressure -Treatment Response Procedure Tolerated Well -Offloading No -Debridement - Subq, 1st 20sq cm No #2 Left Hallux -Time 08:24 08:27 08:25 -Correct Patient Yes Yes Yes -Correct Side, Site, Position Yes Yes Yes -Correct Procedure Yes Yes Yes -Procedure Performed Yes Yes Yes -Type of Procedure Debridement Debridement Debridement -Clinical Debridement Subcutaneous Subcutaneous Subcutaneous -Tissue Removed Subcutaneous Subcutaneous Subcutaneous -Post Debridement (cm) - Length 0.3 0.5 0.5 -Post Debridement (cm) - Width 0.3 0.4 0.5 -Post Debridement (cm) - Depth 0.2 0.2 0.2 -Total Square (Post) (cm) 0.09 0.20 0.25 -Area of Debridement (cm) - Length 0.3 0.5 0.5 -Area of Debridement (cm) - Width 0.3 0.4 0.5 -Total Square (Area) (cm) 0.09 0.20 0.25 -Tunneling No No No -Undermining/Tunneling No No No -Circular Undermining No No No -Wound/Ulcer Outcome Not Healed Not Healed Not Healed -Ulcer Cleansing Rinsed/ Rinsed/ Rinsed/ Irrigated with Irrigated with Irrigated with Saline Saline Saline -Foul Odor after Cleansing No No No -Bioengineered Tissue No No No -Bleeding Controlled with Pressure Pressure Pressure -Treatment Response Procedure Procedure Procedure Tolerated Well Tolerated Well Tolerated Well -Offloading No No No -Debridement - Subq, 1st 20sq cm Yes Yes Yes Pain Scale: 0-10 Numeric Is Patient Pain Free? Yes Yes Yes 12/25/21 01/01/22 08:21 08:20 Wound Center Nurse 2 #1 left 2nd toe -Time -Correct Patient -Correct Side, Site, Position -Correct Procedure -Procedure Performed -Type of Procedure -Clinical Debridement -Tissue Removed -Post Debridement (cm) - Length -Post Debridement (cm) - Width -Post Debridement (cm) - Depth -Total Square (Post) (cm) -Area of Debridement (cm) - Length -Area of Debridement (cm) - Width -Total Square (Area) (cm) -Tunneling -Undermining/Tunneling -Circular Undermining -Wound/Ulcer Outcome -Ulcer Cleansing -Foul Odor after Cleansing -Bioengineered Tissue -Bleeding Controlled with -Treatment Response -Offloading -Debridement - Subq, 1st 20sq cm #2 Left Hallux -Time 08:21 08:20 -Correct Patient Yes Yes -Correct Side, Site, Position Yes Yes -Correct Procedure Yes Yes -Procedure Performed Yes Yes -Type of Procedure Debridement Debridement -Clinical Debridement Subcutaneous Subcutaneous -Tissue Removed Subcutaneous Subcutaneous -Post Debridement (cm) - Length 0.2 0.4 -Post Debridement (cm) - Width 0.3 0.4 -Post Debridement (cm) - Depth 0.1 0.2 -Total Square (Post) (cm) 0.06 0.16 -Area of Debridement (cm) - Length 0.2 0.4 -Area of Debridement (cm) - Width 0.3 0.4 -Total Square (Area) (cm) 0.06 0.16 -Tunneling No No -Undermining/Tunneling No No -Circular Undermining No No -Wound/Ulcer Outcome Not Healed Not Healed -Ulcer Cleansing Rinsed/ Rinsed/ Irrigated with Irrigated with Saline Saline -Foul Odor after Cleansing No No -Bioengineered Tissue No No -Bleeding Controlled with Pressure Pressure -Treatment Response Procedure Procedure Tolerated Well Tolerated Well -Offloading No No -Debridement - Subq, 1st 20sq cm Yes Yes Pain Scale: 0-10 Numeric Is Patient Pain Free? Yes Yes WC - Nurse 3 - General Ulcer D/C NN Start: 12/04/21 08:04 Freq: Status: Active Protocol: Activity Type Activity Date Activity User E-sign Co-sign Detail Recorded Client Recorded Date Recorded By Document 12/04/21 09:06 KR [id number] 12/04/21 09:07 KR Document 12/11/21 08:33 KR [id number] 12/11/21 08:34 KR Document 12/18/21 08:34 ML [id number] 12/18/21 08:35 ML Document 12/25/21 08:28 AK [id number] 12/25/21 08:29 AK Document 01/01/22 08:40 AK [id number] 01/01/22 08:41 AK 12/04/21 12/11/21 12/18/21 09:06 08:33 08:34 Wound Care Nurse 3 #1 left 2nd toe -Ulcer Cleansing Rinsed/ Irrigated with Saline -Primary Dressing Applied Aquacel Extra Aquacel Extra -Primary Dressing Covered/Secured with Dry Gauze, Dry Gauze, Secured with Secured with Tape Tape -Aquacel Extra 1 1 #2 Left Hallux -Ulcer Cleansing Rinsed/ Rinsed/ Rinsed/ Irrigated with Irrigated with Irrigated with Saline Saline Saline -Foul Odor after Cleansing No -Negative Pressure Wound Therapy N/A -Primary Dressing Applied Promogran Promogran Promogran -Primary Dressing Covered/Secured with Dry Gauze, Dry Gauze, Dry Gauze, Secured with Secured with Secured with Tape Tape Tape -Promogran 1 1 1 -Promogran Zohreh Matter Pain Scale: 0-10 Numeric Is Patient Pain Free? Yes Yes Yes WC - Visit Discharge Discharge Condition Stable Stable Stable Ambulatory Status Ambulatory Ambulatory Ambulatory Transportation Private Auto Private Auto Private Auto Medication Reconcilliation completed & Yes provided to patient/care provider Clinical Summary of Care Provided Yes 12/25/21 01/01/22 08:28 08:40 Wound Care Nurse 3 #1 left 2nd toe -Ulcer Cleansing -Primary Dressing Applied -Primary Dressing Covered/Secured with -Aquacel Extra #2 Left Hallux -Ulcer Cleansing Rinsed/ Rinsed/ Irrigated with Irrigated with Saline Saline -Foul Odor after Cleansing No No -Negative Pressure Wound Therapy N/A N/A -Primary Dressing Applied Promogran Promogran Zohreh Matter -Primary Dressing Covered/Secured with Dry Gauze, Dry Gauze, Secured with Secured with Tape Tape -Promogran 1 -Promogran Zohreh Matter 1 Pain Scale: 0-10 Numeric Is Patient Pain Free? Yes Yes WC - Visit Discharge Discharge Condition Stable Stable Ambulatory Status Ambulatory Ambulatory Transportation Private Auto Private Auto Medication Reconcilliation completed & Yes Yes provided to patient/care provider Clinical Summary of Care Provided Yes Yes Assessment/Plan Assessment/Plan (1) Uncontrolled type 2 diabetes mellitus with hyperglycemia: CODE(S): E11.65 - Type 2 diabetes mellitus with hyperglycemia (2) Diabetic foot ulcer associated with type 2 diabetes mellitus: CODE(S): E11.621 - Type 2 diabetes mellitus with foot ulcer; L97.509 - Non-pressure chronic ulcer of other part of unspecified foot with unspecified severity QUALIFIERS: Diabetic foot ulcer location: toe Laterality: left Non-pressure ulcer stage: unspecified non-pressure ulcer stage Qualified Code(s): E11.621 - Type 2 diabetes mellitus with foot ulcer; L97.529 - Non-pressure chronic ulcer of other part of left foot with unspecified severity PLAN: Wash left foot and in between toes with antibacterial soap. Promogran to wound base pack well at left hallux. Continue changing socks twice a day for moisture wicking We will call with culture results as they come in Follow-up in 1 week (3) Open wound of foot: CODE(S): S91.309A - Unspecified open wound, unspecified foot, initial encounter QUALIFIERS: Encounter type: initial encounter Laterality: left Qualified Code(s): S91.302A - Unspecified open wound, left foot, initial encounter (4) Nonhealing nonsurgical wound: CODE(S): T14.8XXA - Other injury of unspecified body region, initial encounter
== END 2022-01-02 23:59 | disposition home or self-care (01) ==
LOC: WC 08:00
PROVIDERS: PCP Family Medicine; Referring Provider Nurse Practitioner; Visit Provider Nurse Practitioner
DX: E11.621 Type 2 diabetes mellitus with foot ulcer (principal); L97.522 Non-pressure chronic ulcer of other part of left foot with fat layer exposed; L97.521 Non-pressure chronic ulcer of other part of left foot limited to breakdown of skin; E11.65 Type 2 diabetes mellitus with hyperglycemia; E11.610 Type 2 diabetes mellitus with diabetic neuropathic arthropathy; L03.032 Cellulitis of left toe; B35.3 Tinea pedis
CPT/HCPCS: 11042; 87070; 87075; 87077; 87186; 87205

== ENCOUNTER 2022-01-22 08:00 | Outpatient (RCR) | payer OTHER, SELFPAY ==
[2022-01-03 00:40] VITALS: BP 135/80; PULSE 87; RESP 16; TEMP 36.2
[2022-01-08 08:04] VITALS: BP 131/76; PULSE 87; TEMP 36.1
--- NOTE | 2022-01-08 08:46 | PCM.WC.PN ---
History of Present Illness Date of Service: 01/08/22 Chief Complaint: Follow-up left second toe and left hallux History of Wound: 65-year-old white male with type 2 diabetes semi well-controlled. He appears to have Charcot of the right foot and a collapsed right arch. Appears with a nonhealing wound to his left second toe under the nail dorsal side and cellulitis to the whole toe. Also back in June developed a blister while on vacation wearing different shoes on the left hallux, that still has not closed and is a small open area full-thickness. Progress of Wound: Noted some erythema and warmth around the wound today on the left left hallux. Cultures were positive patient will start antibiotic therapy for this today which is be linezolid 600 mg twice a day. Using nippers I opened the wound more so trying to get flatter so the size is bigger. Blood more easily today really debrided well. We also switched him over to Zohreh this week. Subjective Subjective Patient has no concerns Objective Data Objective Data As stated above in progress note. Hopefully will see a difference after 1 week of antibiotic therapy. Toenails look very good on the fluconazole Vital Signs: Vital Signs Temp Pulse Resp BP 97.0 F L 87 16 131/76 H 01/08/22 08:04 01/08/22 08:04 01/03/22 00:40 01/08/22 08:04 Lab / Micro Data Micro: Positive wound cultures will start on linezolid 600 mg twice daily Physical Exam Const oriented x3 General Appearance: cooperative Exam Limitations: no limitations HEENT normocephalic Head and Scalp: normal to inspection Face and Sinus: normal facial exam Nose: external nose normal General Ear: hearing grossly impaired External Ear: external ears normal Mouth: oral and palatal mucosa normal Eyes PERRL General Eye: normal appearance of both eyes Neck full ROM General: normal visual inspection Resp normal respiratory effort Effort and Inspection: able to speak in complete sentences Auscultation: clear to auscultation bilaterally Cardio regular rate and regular rhythm Palpation: normal PMI Rate: regular rate Rhythm: regular rhythm GI Auscultation: normoactive bowel sounds Palpation: soft and no hepatosplenomegaly external exam normal Back/Spine Cervical Spine: cervical ROM normal Thoracic Spine / Upper Back: normal to inspection Lumbar Spine / Lower Back: normal to inspection Extremity normal to inspection General Extremity: normal exam except as noted Skin no rashes or lesions noted Neuro oriented x3 Psych Appearance: grossly normal Speech: normal speech Thought Content: normal thought content Judgement: judgement good Debridement Note Debridement Note Wound debrided: Left hallux Laterality: Left Wound Grade/Stage: Stage II diabetic foot ulcer Anesthesia Used: 5% Lidocaine Gel Depth: Down to and including healthy tissue Percentage of wound debrided: 100 Instrument Used: 3mm curette and - (Nippers) Tissue Removed: Devitalized tissue and fibrin Severity: Fat Layer Exposed Amount of bleeding with debridement: Mild Bleeding Controlled with: Compression and gauze Patient tolerated procedure: Patient tolerated procedure well Post-Debridement Measurements and Additional Note: Post-Debridement Measurements/Treatment WC - Nurse 1 - General Ulcer Assessment Start: 01/08/22 08:04 Freq: Status: Active Protocol: AIXA Activity Type Activity Date Activity User E-sign Co-sign Detail Recorded Client Recorded Date Recorded By Document 01/08/22 08:04 DYLON [id number] 01/08/22 08:07 DYLON 01/08/22 08:04 DOMINIQUE - Today's Visit Information Type of service 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 Any new allergies or adverse reactions No Had a fall/change in ADL's that may No increase risk of falls Signs or symptoms of abuse and/or No neglect since last visit Have you been in the hospital since your No last visit? Has dressing in place as prescribed Yes Has compression in place as prescribed N/A Has offloadiing in place as prescribed N/A Left Footwear Regular Shoe Right Footwear Regular Shoe Pain Scale: 0-10 Numeric Is Patient Pain Free? Yes DOMINIQUE Renee Nurse 1 - General Ulcer Measurement Start: 01/08/22 08:04 Freq: Status: Active Protocol: Activity Type Activity Date Activity User E-sign Co-sign Detail Recorded Client Recorded Date Recorded By Document 01/08/22 08:04 AK [id number] 01/08/22 08:07 AK 01/08/22 08:04 Wound Center Nurse 1 #2 Left Hallux -Current Size (cm) - Length 0.3 -Current Size (cm) - Width 0.2 -Current Size (cm) - Depth 0.3 -Total Square Cm 0.06 -Undermining/Tunneling Starts (O'clock 12 ) -Undermining/Tunneling Ends (O'clock) 2 -Maximum Distance (cm) 0.2 -Exudate Amt Small -Exudate Type Serosanguineous -Wound Margin Distinct, Outline Attached -Granulation Amt Small (1-33%) -Granulation Quality [place] -Necrosis Amt None Present (0 %) -Texture (Gricelda-wound Skin Appearance) Assessed, Scarring -Moisture (Gricelda-wound Skin Appearance) No Abnormality, Assessed -Color (Gricelda-wound Skin Appearance) No Abnormality, Assessed -Temperature (Gricelda-wound Skin No Abnormality Appearance) (Pt Warm) -Tenderness on Palpation (Gricelda-wound No Skin Appearance) -Ulcer Cleansing Rinsed/ Irrigated with Saline -Foul Odor after Cleansing No -Anesthetic Used 5% Lidocaine Gel WC - Nurse 2 - General Ulcer CM Notes Start: 01/08/22 08:04 Freq: Status: Active Protocol: Activity Type Activity Date Activity User E-sign Co-sign Detail Recorded Client Recorded Date Recorded By Document 01/08/22 08:19 MW [id number] 01/08/22 08:24 MW 01/08/22 08:19 Wound Center Nurse 2 -Time 08:22 -Correct Patient Yes -Correct Side, Site, Position Yes -Correct Procedure Yes -Procedure Performed Yes -Type of Procedure Debridement -Clinical Debridement Subcutaneous -Tissue Removed Subcutaneous -Post Debridement (cm) - Length 0.5 -Post Debridement (cm) - Width 0.5 -Post Debridement (cm) - Depth 0.3 -Total Square (Post) (cm) 0.25 -Area of Debridement (cm) - Length 0.5 -Area of Debridement (cm) - Width 0.5 -Total Square (Area) (cm) 0.25 -Tunneling No -Undermining/Tunneling No -Circular Undermining No -Wound/Ulcer Outcome Not Healed -Ulcer Cleansing Rinsed/ Irrigated with Saline -Foul Odor after Cleansing No -Bioengineered Tissue No -Bleeding Controlled with Pressure -Treatment Response Procedure Tolerated Well -Offloading No -Debridement - Subq, 1st 20sq cm Yes Pain Scale: 0-10 Numeric Is Patient Pain Free? Yes WC - Nurse 3 - General Ulcer D/C NN Start: 01/08/22 08:04 Freq: Status: Active Protocol: Activity Type Activity Date Activity User E-sign Co-sign Detail Recorded Client Recorded Date Recorded By Document 01/08/22 08:34 DYLON [id number] 01/08/22 08:35 DYLON 01/08/22 08:34 Wound Care Nurse 3 #2 Left Hallux -Ulcer Cleansing Rinsed/ Irrigated with Saline -Foul Odor after Cleansing No -Negative Pressure Wound Therapy N/A -Primary Dressing Applied Promogran Zohreh Matter -Promogran Zohreh Matter 1 Pain Scale: 0-10 Numeric Is Patient Pain Free? Yes WC - Visit Discharge Discharge Condition Stable Ambulatory Status Ambulatory Transportation Private Auto Medication Reconcilliation completed & Yes provided to patient/care provider Clinical Summary of Care Provided Yes Assessment/Plan Assessment/Plan (1) Uncontrolled type 2 diabetes mellitus with hyperglycemia: CODE(S): E11.65 - Type 2 diabetes mellitus with hyperglycemia (2) Diabetic foot ulcer associated with type 2 diabetes mellitus: CODE(S): E11.621 - Type 2 diabetes mellitus with foot ulcer; L97.509 - Non-pressure chronic ulcer of other part of unspecified foot with unspecified severity QUALIFIERS: Diabetic foot ulcer location: toe Laterality: left Non-pressure ulcer stage: unspecified non-pressure ulcer stage Qualified Code(s): E11.621 - Type 2 diabetes mellitus with foot ulcer; L97.529 - Non-pressure chronic ulcer of other part of left foot with unspecified severity PLAN: Wash left foot and in between toes with antibacterial soap. Zohreh to wound base pack well at left hallux. Continue changing socks twice a day for moisture wicking We will call with culture results as they come in Follow-up in 1 week (3) Open wound of foot: CODE(S): S91.309A - Unspecified open wound, unspecified foot, initial encounter QUALIFIERS: Encounter type: initial encounter Laterality: left Qualified Code(s): S91.302A - Unspecified open wound, left foot, initial encounter (4) Nonhealing nonsurgical wound: CODE(S): T14.8XXA - Other injury of unspecified body region, initial encounter
[2022-01-15 08:06] VITALS: BP 129/79; PULSE 79; TEMP 36.1
--- NOTE | 2022-01-15 10:29 | PN.PCM_ITS ---
History of Present Illness Date of Service: 01/15/22 Chief Complaint: Follow-up left second toe and left hallux History of Wound: 65-year-old white male with type 2 diabetes semi well- controlled. He appears to have Charcot of the right foot and a collapsed right arch. Appears with a nonhealing wound to his left second toe under the nail dorsal side and cellulitis to the whole toe. Also back in June developed a blister while on vacation wearing different shoes on the left hallux, that still has not closed and is a small open area full-thickness. Progress of Wound: So patient has finished his linezolid and the left hallux is looking much better. Starting to fill and still has quite the divot. Subjective Subjective Patient is leaving for vacation after next week and wants to know about going into a swimming pool. Suggested not going. Objective Data Objective Data Still has an open wound on the left hallux at his smaller more shallow healing still has erythema around the perimeter but no sign of infection. Debrided for fibrin Vital Signs: Vital Signs Temp Pulse Resp BP 97.0 F L 79 16 129/79 H 01/15/22 08:06 01/15/22 08:06 01/03/22 00:40 01/15/22 08:06 Physical Exam Const oriented x3 General Appearance: cooperative Exam Limitations: no limitations HEENT normocephalic Head and Scalp: normal to inspection Face and Sinus: normal facial exam Nose: external nose normal General Ear: hearing grossly impaired External Ear: external ears normal Mouth: oral and palatal mucosa normal Eyes PERRL General Eye: normal appearance of both eyes Neck full ROM General: normal visual inspection Resp normal respiratory effort Effort and Inspection: able to speak in complete sentences Auscultation: clear to auscultation bilaterally Cardio regular rate and regular rhythm Palpation: normal PMI Rate: regular rate Rhythm: regular rhythm GI Auscultation: normoactive bowel sounds Palpation: soft and no hepatosplenomegaly external exam normal Back/Spine Cervical Spine: cervical ROM normal Thoracic Spine / Upper Back: normal to inspection Lumbar Spine / Lower Back: normal to inspection Extremity normal to inspection General Extremity: normal exam except as noted Skin no rashes or lesions noted Neuro oriented x3 Psych Appearance: grossly normal Speech: normal speech Thought Content: normal thought content Judgement: judgement good Debridement Note Debridement Note Wound debrided: Left hallux Laterality: Left Wound Grade/Stage: DFU stage II Type of Debridement: Excisional debridement Anesthesia Used: 5% Lidocaine Gel Depth: Down to and including healthy tissue Instrument Used: 5mm curette Tissue Removed: Fibrin Severity: Limited To Skin Breakdown Amount of bleeding with debridement: None Patient tolerated procedure: Patient tolerated procedure well Post-Debridement Measurements and Additional Note: Post-Debridement Measurements/Treatment DOMINIQUE Renee Nurse 1 - General Ulcer Assessment Start: 01/08/22 08:04 Freq: Status: Active Protocol: AIXA Activity Type Activity Date Activity User E-sign Co-sign Detail Recorded Client Recorded Date Recorded By Document 01/08/22 08:04 AK [id number] 01/08/22 08:07 AK Document 01/15/22 08:06 KR [id number] 01/15/22 08:07 KR 01/08/22 01/15/22 08:04 08:06 WC - Today's Visit Information Type of service Follow-up Visit 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 Any new allergies or adverse reactions No No Had a fall/change in ADL's that may No No increase risk of falls Signs or symptoms of abuse and/or No No neglect since last visit Have you been in the hospital since your No No last visit? Has dressing in place as prescribed Yes Yes Has compression in place as prescribed N/A N/A Has offloadiing in place as prescribed N/A N/A Experienced any changes in pain level or No management Left Footwear Regular Shoe Regular Shoe Right Footwear Regular Shoe Regular Shoe Pain Scale: 0-10 Numeric Is Patient Pain Free? Yes Yes DOMINIQUE Renee Nurse 1 - General Ulcer Measurement Start: 01/08/22 08:04 Freq: Status: Active Protocol: Activity Type Activity Date Activity User E-sign Co-sign Detail Recorded Client Recorded Date Recorded By Document 01/08/22 08:04 AK [id number] 01/08/22 08:07 AK Document 01/15/22 08:06 KR [id number] 01/15/22 08:07 KR 01/08/22 01/15/22 08:04 08:06 Wound Center Nurse 1 #2 Left Hallux -Current Size (cm) - Length 0.3 0.2 -Current Size (cm) - Width 0.2 0.2 -Current Size (cm) - Depth 0.3 0.2 -Total Square Cm 0.06 0.04 -Undermining/Tunneling Starts (O'clock 12 ) -Undermining/Tunneling Ends (O'clock) 2 -Maximum Distance (cm) 0.2 -Exudate Amt Small Small -Exudate Type Serosanguineous Serosanguineous -Wound Margin Distinct, Distinct, Outline Outline Attached Attached -Granulation Amt Small (1-33%) Small (1-33%) -Granulation Quality [place] -Necrosis Amt None Present (0 None Present (0 %) %) -Texture (Gricelda-wound Skin Appearance) Assessed, Assessed, Scarring Scarring -Moisture (Gricelda-wound Skin Appearance) No Abnormality, No Abnormality, Assessed Assessed -Color (Gricelda-wound Skin Appearance) No Abnormality, No Abnormality, Assessed Assessed -Temperature (Gricelda-wound Skin No Abnormality No Abnormality Appearance) (Pt Warm) (Pt Warm) -Tenderness on Palpation (Gricelda-wound No No Skin Appearance) -Ulcer Cleansing Rinsed/ Rinsed/ Irrigated with Irrigated with Saline Saline -Foul Odor after Cleansing No No -Anesthetic Used 5% Lidocaine 5% Lidocaine Gel Gel WC - Nurse 2 - General Ulcer CM Notes Start: 01/08/22 08:04 Freq: Status: Active Protocol: Activity Type Activity Date Activity User E-sign Co-sign Detail Recorded Client Recorded Date Recorded By Document 01/08/22 08:19 MW [id number] 01/08/22 08:24 MW Document 01/15/22 08:22 MW [id number] 01/15/22 08:24 MW 01/08/22 01/15/22 08:19 08:22 Wound Center Nurse 2 #2 Left Hallux -Time 08:22 08:23 -Correct Patient Yes Yes -Correct Side, Site, Position Yes Yes -Correct Procedure Yes Yes -Procedure Performed Yes Yes -Type of Procedure Debridement Debridement -Clinical Debridement Subcutaneous Subcutaneous -Tissue Removed Subcutaneous Subcutaneous -Post Debridement (cm) - Length 0.5 0.3 -Post Debridement (cm) - Width 0.5 0.3 -Post Debridement (cm) - Depth 0.3 0.2 -Total Square (Post) (cm) 0.25 0.09 -Area of Debridement (cm) - Length 0.5 0.3 -Area of Debridement (cm) - Width 0.5 0.3 -Total Square (Area) (cm) 0.25 0.09 -Tunneling No No -Undermining/Tunneling No No -Circular Undermining No No -Wound/Ulcer Outcome Not Healed Not Healed -Ulcer Cleansing Rinsed/ Rinsed/ Irrigated with Irrigated with Saline Saline -Foul Odor after Cleansing No No -Bioengineered Tissue No No -Bleeding Controlled with Pressure Pressure -Treatment Response Procedure Procedure Tolerated Well Tolerated Well -Offloading No No -Debridement - Subq, 1st 20sq cm Yes Yes Pain Scale: 0-10 Numeric Is Patient Pain Free? Yes Yes - Nurse 3 - General Ulcer D/C NN Start: 01/08/22 08:04 Freq: Status: Active Protocol: Activity Type Activity Date Activity User E-sign Co-sign Detail Recorded Client Recorded Date Recorded By Document 01/08/22 08:34 CO [id number] 01/08/22 08:35 CO Document 01/15/22 08:43 CO [id number] 01/15/22 08:43 AK 01/08/22 01/15/22 08:34 08:43 Wound Care Nurse 3 #2 Left Hallux -Ulcer Cleansing Rinsed/ Rinsed/ Irrigated with Irrigated with Saline Saline -Foul Odor after Cleansing No No -Negative Pressure Wound Therapy N/A N/A -Primary Dressing Applied Promogran Promogran Zohreh Matter Zohreh Matter -Primary Dressing Covered/Secured with Dry Gauze, Secured with Tape -Promogran Zohreh Matter 1 1 Pain Scale: 0-10 Numeric Is Patient Pain Free? Yes Yes WC - Visit Discharge Discharge Condition Stable Stable Ambulatory Status Ambulatory Transportation Private Auto Private Auto Medication Reconcilliation completed & Yes Yes provided to patient/care provider Clinical Summary of Care Provided Yes Yes Assessment/Plan Assessment/Plan (1) Uncontrolled type 2 diabetes mellitus with hyperglycemia: CODE(S): E11.65 - Type 2 diabetes mellitus with hyperglycemia (2) Diabetic foot ulcer associated with type 2 diabetes mellitus: CODE(S): E11.621 - Type 2 diabetes mellitus with foot ulcer; L97.509 - Non-pressure chronic ulcer of other part of unspecified foot with unspecified severity QUALIFIERS: Diabetic foot ulcer location: toe Laterality: left Non-pressure ulcer stage: unspecified non-pressure ulcer stage Qualified Code(s): E11.621 - Type 2 diabetes mellitus with foot ulcer; L97.529 - Non- pressure chronic ulcer of other part of left foot with unspecified severity PLAN: Wash left foot and in between toes with antibacterial soap. Zohreh to wound base pack well at left hallux. Continue changing socks twice a day for moisture wicking We will call with culture results as they come in Follow-up in 1 week (3) Open wound of foot: CODE(S): S91.309A - Unspecified open wound, unspecified foot, initial encounter QUALIFIERS: Encounter type: initial encounter Laterality: left Qualified Code(s): S91.302A - Unspecified open wound, left foot, initial encounter (4) Nonhealing nonsurgical wound: CODE(S): T14.8XXA - Other injury of unspecified body region, initial encounter
[2022-01-22 07:58] VITALS: BP 132/78; PULSE 90; TEMP 36.1
--- NOTE | 2022-01-22 08:59 | PN.PCM_ITS ---
History of Present Illness Date of Service: 01/22/22 Chief Complaint: Follow-up left second toe and left hallux History of Wound: 65-year-old white male with type 2 diabetes semi well- controlled. He appears to have Charcot of the right foot and a collapsed right arch. Appears with a nonhealing wound to his left second toe under the nail dorsal side and cellulitis to the whole toe. Also back in June developed a blister while on vacation wearing different shoes on the left hallux, that still has not closed and is a small open area full-thickness. Progress of Wound: So patient has finished his linezolid and the left hallux is looking much better. Starting to fill and still has quite the divot. Subjective Subjective Patient complains of thrush. His tongue is inflamed and he has developed sores in his mouth. Objective Data Objective Data Again on the left hallux is still open improving we will go back to Promogran and stop the Zohreh. Finished all of his antibiotics. Will restart Diflucan 100 mg once a day for 14 days for his oral thrush. Patient is going on vacation I will be back in 2 weeks Vital Signs: Vital Signs Temp Pulse Resp BP 96.9 F L 90 16 132/78 H 01/22/22 07:58 01/22/22 07:58 01/03/22 00:40 01/22/22 07:58 Lab / Micro Data Attestation: I reviewed the patient's lab results. Physical Exam Const oriented x3 General Appearance: cooperative Exam Limitations: no limitations HEENT normocephalic Head and Scalp: normal to inspection Face and Sinus: normal facial exam Nose: external nose normal General Ear: hearing grossly impaired External Ear: external ears normal Mouth: oral and palatal mucosa normal Eyes PERRL General Eye: normal appearance of both eyes Neck full ROM General: normal visual inspection Resp normal respiratory effort Effort and Inspection: able to speak in complete sentences Auscultation: clear to auscultation bilaterally Cardio regular rate and regular rhythm Palpation: normal PMI Rate: regular rate Rhythm: regular rhythm GI Auscultation: normoactive bowel sounds Palpation: soft and no hepatosplenomegaly external exam normal Back/Spine Cervical Spine: cervical ROM normal Thoracic Spine / Upper Back: normal to inspection Lumbar Spine / Lower Back: normal to inspection Extremity normal to inspection General Extremity: normal exam except as noted Skin no rashes or lesions noted Neuro oriented x3 Psych Appearance: grossly normal Speech: normal speech Thought Content: normal thought content Judgement: judgement good Debridement Note Debridement Note Wound debrided: Left hallux Laterality: Left Wound Grade/Stage: Diabetic foot ulcer Type of Debridement: Excisional debridement Anesthesia Used: 5% Lidocaine Gel Depth: in the subcutaneous layer Percentage of wound debrided: 100 Instrument Used: 3mm curette Tissue Removed: Fibrin and some devitalized tissue Severity: Fat Layer Exposed Amount of bleeding with debridement: None Patient tolerated procedure: Patient tolerated procedure well Post-Debridement Measurements and Additional Note: Post-Debridement Measurements/Treatment - Nurse 1 - General Ulcer Assessment Start: 01/08/22 08:04 Freq: Status: Active Protocol: AIXA Activity Type Activity Date Activity User E-sign Co-sign Detail Recorded Client Recorded Date Recorded By Document 01/08/22 08:04 DYLON [id number] 01/08/22 08:07 AK Document 01/15/22 08:06 KR [id number] 01/15/22 08:07 KR Document 01/22/22 07:58 AK [id number] 01/22/22 08:10 AK 01/08/22 01/15/22 01/22/22 08:04 08:06 07:58 - Today's Visit Information Type of service Follow-up Visit Follow-up Visit Follow-up Visit (Physician/MANAGER CRITICAL CARE (Physician/MANAGER CRITICAL CARE (Physician/MANAGER CRITICAL CARE ) ) ) Arrival Mode Ambulatory Ambulatory Ambulatory Patient Identification Verified (Name & Yes Yes Yes ) Patient Requires Transmission-Based No Precautions Safety Precautions NA Vital Signs Temperature (97.8 F-99.1 F) 97.0 F L 97.0 F L 96.9 F L Temperature Source Temporal Temporal Temporal Pulse Rate (60-100) 87 79 90 Pulse Location Monitor Monitor Monitor Blood Pressure (90/60-120/80) 131/76 H 129/79 H 132/78 H Blood Pressure Mean (mm Hg) 94 95 96 Source Monitor Monitor Monitor Position Sitting Semi-Fowlers Blood Pressure Location Right Arm Right Arm History Since Last Visit- (Skip if this is Patient's initial visit) Have you changed medications since your No No No last visit? Any new allergies or adverse reactions No No No Had a fall/change in ADL's that may No No No increase risk of falls Signs or symptoms of abuse and/or No No No neglect since last visit Have you been in the hospital since your No No No last visit? Has dressing in place as prescribed Yes Yes Yes Has compression in place as prescribed N/A N/A N/A Has offloadiing in place as prescribed N/A N/A N/A Experienced any changes in pain level or No No management Left Footwear Regular Shoe Regular Shoe Regular Shoe Right Footwear Regular Shoe Regular Shoe Regular Shoe Pain Scale: 0-10 Numeric Is Patient Pain Free? Yes Yes Yes WC - Nurse 1 - General Ulcer Measurement Start: 01/08/22 08:04 Freq: Status: Active Protocol: Activity Type Activity Date Activity User E-sign Co-sign Detail Recorded Client Recorded Date Recorded By Document 01/08/22 08:04 AK [id number] 01/08/22 08:07 AK Document 01/15/22 08:06 KR [id number] 01/15/22 08:07 KR Document 01/22/22 07:58 AK [id number] 01/22/22 08:10 AK 01/08/22 01/15/22 01/22/22 08:04 08:06 07:58 Wound Center Nurse 1 #2 Left Hallux -Combined with other wound No -Current Size (cm) - Length 0.3 0.2 0.3 -Current Size (cm) - Width 0.2 0.2 0.2 -Current Size (cm) - Depth 0.3 0.2 0.2 -Total Square Cm 0.06 0.04 0.06 -Date of Last Picture (Recall this 01/22/22 field) -Photo Taken Yes -Tunneling No -Undermining/Tunneling No -Undermining/Tunneling Starts (O'clock 12 ) -Undermining/Tunneling Ends (O'clock) 2 -Maximum Distance (cm) 0.2 -Circular Undermining No -Change in Wound Grade/Stage No -Exudate Amt Small Small Small -Exudate Type Serosanguineous Serosanguineous Serosanguineous -Wound Margin Distinct, Distinct, Distinct, Outline Outline Outline Attached Attached Attached -Granulation Amt Small (1-33%) Small (1-33%) None Present (0 %) -Granulation Quality [place] -Slough/Fibrin No -Necrosis Amt None Present (0 None Present (0 Small (1-33%) %) %) -Necrotic Tissue Type Adherent Slough -Structure Exposed N/A -Texture (Gricelda-wound Skin Appearance) Assessed, Assessed, No Abnormality, Scarring Scarring Assessed -Moisture (Gricelda-wound Skin Appearance) No Abnormality, No Abnormality, No Abnormality, Assessed Assessed Assessed -Color (Gricelda-wound Skin Appearance) No Abnormality, No Abnormality, Assessed, Assessed Assessed Erythema -Temperature (Gricelda-wound Skin No Abnormality No Abnormality No Abnormality Appearance) (Pt Warm) (Pt Warm) (Pt Warm) -Tenderness on Palpation (Gricelda-wound No No No Skin Appearance) -Ulcer Cleansing Rinsed/ Rinsed/ Rinsed/ Irrigated with Irrigated with Irrigated with Saline Saline Saline -Foul Odor after Cleansing No No No -Anesthetic Used 5% Lidocaine 5% Lidocaine 5% Lidocaine Gel Gel Gel WC - Nurse 2 - General Ulcer CM Notes Start: 01/08/22 08:04 Freq: Status: Active Protocol: Activity Type Activity Date Activity User E-sign Co-sign Detail Recorded Client Recorded Date Recorded By Document 01/08/22 08:19 MW [id number] 01/08/22 08:24 MW Document 01/15/22 08:22 MW [id number] 01/15/22 08:24 MW Document 01/22/22 08:25 MW [id number] 01/22/22 08:28 MW 01/08/22 01/15/22 01/22/22 08:19 08:22 08:25 Wound Center Nurse 2 #2 Left Hallux -Time 08: 08:23 08:26 -Correct Patient Yes Yes Yes -Correct Side, Site, Position Yes Yes Yes -Correct Procedure Yes Yes Yes -Procedure Performed Yes Yes Yes -Type of Procedure Debridement Debridement Debridement -Clinical Debridement Subcutaneous Subcutaneous Subcutaneous -Tissue Removed Subcutaneous Subcutaneous Subcutaneous -Post Debridement (cm) - Length 0.5 0.3 0.3 -Post Debridement (cm) - Width 0.5 0.3 0.2 -Post Debridement (cm) - Depth 0.3 0.2 0.2 -Total Square (Post) (cm) 0.25 0.09 0.06 -Area of Debridement (cm) - Length 0.5 0.3 0.3 -Area of Debridement (cm) - Width 0.5 0.3 0.2 -Total Square (Area) (cm) 0.25 0.09 0.06 -Tunneling No No No -Undermining/Tunneling No No No -Circular Undermining No No No -Wound/Ulcer Outcome Not Healed Not Healed Not Healed -Ulcer Cleansing Rinsed/ Rinsed/ Rinsed/ Irrigated with Irrigated with Irrigated with Saline Saline Saline -Foul Odor after Cleansing No No No -Bioengineered Tissue No No No -Bleeding Controlled with Pressure Pressure Pressure -Treatment Response Procedure Procedure Procedure Tolerated Well Tolerated Well Tolerated Well -Offloading No No No -Debridement - Subq, 1st 20sq cm Yes Yes Yes Pain Scale: 0-10 Numeric Is Patient Pain Free? Yes Yes Yes - Nurse 3 - General Ulcer D/C NN Start: 01/08/22 08:04 Freq: Status: Active Protocol: Activity Type Activity Date Activity User E-sign Co-sign Detail Recorded Client Recorded Date Recorded By Document 01/08/22 08:34 WA [id number] 01/08/22 08:35 AK Document 01/15/22 08:43 AK [id number] 01/15/22 08:43 AK Document 01/22/22 08:30 KR [id number] 01/22/22 08:31 KR 01/08/22 01/15/22 01/22/22 08:34 08:43 08:30 Wound Care Nurse 3 #2 Left Hallux -Ulcer Cleansing Rinsed/ Rinsed/ Rinsed/ Irrigated with Irrigated with Irrigated with Saline Saline Saline -Foul Odor after Cleansing No No -Negative Pressure Wound Therapy N/A N/A -Primary Dressing Applied Promogran Promogran Promogran Zohreh Matter Zohreh Matter -Primary Dressing Covered/Secured with Dry Gauze, Dry Gauze, Secured with Secured with Tape Tape -Promogran 1 -Promogran Zohreh Matter 1 1 Pain Scale: 0-10 Numeric Is Patient Pain Free? Yes Yes Yes - Visit Discharge Discharge Condition Stable Stable Stable Ambulatory Status Ambulatory Ambulatory Transportation Private Auto Private Auto Private Auto Medication Reconcilliation completed & Yes Yes provided to patient/care provider Clinical Summary of Care Provided Yes Yes Assessment/Plan Assessment/Plan (1) Uncontrolled type 2 diabetes mellitus with hyperglycemia: CODE(S): E11.65 - Type 2 diabetes mellitus with hyperglycemia (2) Diabetic foot ulcer associated with type 2 diabetes mellitus: CODE(S): E11.621 - Type 2 diabetes mellitus with foot ulcer; L97.509 - Non-pressure chronic ulcer of other part of unspecified foot with unspecified se verity QUALIFIERS: Diabetic foot ulcer location: toe Laterality: left Non-pressure ulcer stage: unspecified non-pressure ulcer stage Qualified Code(s): E11.621 - Type 2 diabetes mellitus with foot ulcer; L97.529 - Non- pressure chronic ulcer of other part of left foot with unspecified severity PLAN: Wash left foot and in between toes with antibacterial soap. Promogran to wound base pack well at left hallux. Continue changing socks twice a day for moisture wicking Follow-up in 2 week (3) Open wound of foot: CODE(S): S91.309A - Unspecified open wound, unspecified foot, initial encounter QUALIFIERS: Encounter type: initial encounter Laterality: left Qualified Code(s): S91.302A - Unspecified open wound, left foot, initial encounter (4) Nonhealing nonsurgical wound: CODE(S): T14.8XXA - Other injury of unspecified body region, initial encounter (5) Oral thrush: CODE(S): B37.0 - Candidal stomatitis PLAN: Take fluconazole 100 mg 1 p.o. daily for 14 days with 1 refill if needed
== END 2022-02-02 23:59 | disposition home or self-care (01) ==
LOC: WC 08:00
PROVIDERS: PCP Family Medicine; Referring Provider Nurse Practitioner; Visit Provider Nurse Practitioner
DX: E11.621 Type 2 diabetes mellitus with foot ulcer (principal); L97.521 Non-pressure chronic ulcer of other part of left foot limited to breakdown of skin; L97.522 Non-pressure chronic ulcer of other part of left foot with fat layer exposed; E11.65 Type 2 diabetes mellitus with hyperglycemia; L03.039 Cellulitis of unspecified toe; B35.3 Tinea pedis
CPT/HCPCS: 11042

== ENCOUNTER → 2022-02-12 | Outpatient (CLI) | payer OTHER, SELFPAY ==
[2022-02-12 09:27] LABS: Anion Gap 3 (5-15); BUN 25 mg/dL (7-18); BUN/Creat Ratio 20.5 RATIO (10-20); Calcium,Total 9.8 mg/dL (8.5-10.1); Chloride 106 mmol/L (98-107); Cholesterol 103 mg/dL (200); Creatinine, Serum 1.22 mg/dL (0.70-1.30); EST Glomerular Filtration Rate 63 mL/min (>60); Est Glom Filt Rate - Afr Amer 76 mL/min (>60); Glucose 160 mg/dL (74-106); High Density Lipoprotein 41 mg/dL; Potassium 4.4 mmol/L (3.5-5.1); Sodium Level 137 mmol/L (136-145); Thyroid Stim Hormone (TSH) 1.28 uIU/mL (0.358-3.74); Triglycerides 85 mg/dL; Very Low Density Lipoprotein 17 mg/dL (5-40)
== END | disposition home or self-care (01) ==
LOC: LAB 08:29
PROVIDERS: PCP Family Medicine; Visit Provider Family Medicine
DX: R53.83 Other fatigue (principal); E11.9 Type 2 diabetes mellitus without complications
CPT/HCPCS: 36415; 80048; 80061; 84403; 84443

== ENCOUNTER 2022-02-19 08:00 | Outpatient (RCR) | payer OTHER, SELFPAY ==
[2022-02-03 00:31] VITALS: BP 132/78; PULSE 90; RESP 16; TEMP 36.1
[2022-02-05 08:04] VITALS: BP 132/70; PULSE 82; TEMP 36.6
--- NOTE | 2022-02-05 08:23 | PCM.WC.PN ---
History of Present Illness Date of Service: 02/05/22 Chief Complaint: Follow-up left second toe and left hallux History of Wound: 65-year-old white male with type 2 diabetes semi well-controlled. He appears to have Charcot of the right foot and a collapsed right arch. Appears with a nonhealing wound to his left second toe under the nail dorsal side and cellulitis to the whole toe. Also back in June developed a blister while on vacation wearing different shoes on the left hallux, that still has not closed and is a small open area full-thickness. Progress of Wound: The left hallux is still open and seems to get more callus than new tissue on top. Patient has been gone for 2 weeks on vacation so debrided more of the top heel layer its bigger more oblong. Subjective Subjective Patient has no concerns Objective Data Objective Data The left hallux is still open slightly erythematous around the edges still looks clean and not infected. Vital Signs: Vital Signs Temp Pulse Resp BP 97.8 F 82 16 132/70 H 02/05/22 08:04 02/05/22 08:04 02/03/22 00:31 02/05/22 08:04 Lab / Micro Data Attestation: I reviewed the patient's lab results. Physical Exam Const oriented x3 General Appearance: cooperative Exam Limitations: no limitations HEENT normocephalic Head and Scalp: normal to inspection Face and Sinus: normal facial exam Nose: external nose normal General Ear: hearing grossly impaired External Ear: external ears normal Mouth: oral and palatal mucosa normal Eyes PERRL General Eye: normal appearance of both eyes Neck full ROM General: normal visual inspection Resp normal respiratory effort Effort and Inspection: able to speak in complete sentences Auscultation: clear to auscultation bilaterally Cardio regular rate and regular rhythm Palpation: normal PMI Rate: regular rate Rhythm: regular rhythm GI Auscultation: normoactive bowel sounds Palpation: soft and no hepatosplenomegaly external exam normal Back/Spine Cervical Spine: cervical ROM normal Thoracic Spine / Upper Back: normal to inspection Lumbar Spine / Lower Back: normal to inspection Extremity normal to inspection General Extremity: normal exam except as noted Skin no rashes or lesions noted Neuro oriented x3 Psych Appearance: grossly normal Speech: normal speech Thought Content: normal thought content Judgement: judgement good Debridement Note Debridement Note Wound debrided: Left hallux Laterality: Left Type of Debridement: Excisional debridement Anesthesia Used: 5% Lidocaine Gel Depth: in the subcutaneous layer Percentage of wound debrided: 100 Instrument Used: 3mm curette Tissue Removed: Callus fibrin Severity: Limited To Skin Breakdown Amount of bleeding with debridement: Mild Bleeding Controlled with: Compression and gauze Patient tolerated procedure: Patient tolerated procedure well Post-Debridement Measurements and Additional Note: Post-Debridement Measurements/Treatment DOMINIQUE - Nurse 1 - General Ulcer Assessment Start: 02/05/22 08:04 Freq: Status: Active Protocol: AIXA Activity Type Activity Date Activity User E-sign Co-sign Detail Recorded Client Recorded Date Recorded By Document 02/05/22 08:04 LIZ [id number] 02/05/22 08:06 LIZ 02/05/22 08:04 DOMINIQUE - Today's Visit Information Type of service Follow-up Visit (Physician/INTERNATIONAL PROJECT ENGINEER ) Arrival Mode Ambulatory Patient Identification Verified (Name & Yes ) Vital Signs Temperature (97.8 F-99.1 F) 97.8 F Temperature Source Temporal Pulse Rate (60-100) 82 Pulse Location Monitor Blood Pressure (90/60-120/80) 132/70 H Blood Pressure Mean (mm Hg) 90 Source Monitor Position Sitting Blood Pressure Location Left Arm History Since Last Visit- (Skip if this is Patient's initial visit) Have you changed medications since your No last visit? Any new allergies or adverse reactions No Had a fall/change in ADL's that may No increase risk of falls Signs or symptoms of abuse and/or No neglect since last visit Have you been in the hospital since your No last visit? Has dressing in place as prescribed Yes Has compression in place as prescribed N/A Has offloadiing in place as prescribed N/A Experienced any changes in pain level or No management Left Footwear Regular Shoe Right Footwear Regular Shoe Pain Scale: 0-10 Numeric Is Patient Pain Free? Yes - Nurse 1 - General Ulcer Measurement Start: 02/05/22 08:04 Freq: Status: Active Protocol: Activity Type Activity Date Activity User E-sign Co-sign Detail Recorded Client Recorded Date Recorded By Document 02/05/22 08:04 LIZ [id number] 02/05/22 08:06 LIZ 02/05/22 08:04 Wound Center Nurse 1 #2 Left Hallux -Current Size (cm) - Length 0.1 -Current Size (cm) - Width 0.2 -Current Size (cm) - Depth 0.2 -Total Square Cm 0.02 -Exudate Amt Small -Exudate Type Serosanguineous -Wound Margin Distinct, Outline Attached -Granulation Amt Small (1-33%) -Granulation Quality Pale -Necrosis Amt Small (1-33%) -Necrotic Tissue Type Adherent Slough -Texture (Gricelda-wound Skin Appearance) Assessed, Scarring -Moisture (Gricelda-wound Skin Appearance) No Abnormality, Assessed -Color (Gricelda-wound Skin Appearance) No Abnormality, Assessed -Temperature (Gricelda-wound Skin No Abnormality Appearance) (Pt Warm) -Tenderness on Palpation (Gricelda-wound No Skin Appearance) -Ulcer Cleansing Rinsed/ Irrigated with Saline -Foul Odor after Cleansing No -Anesthetic Used 5% Lidocaine Gel WC - Nurse 2 - General Ulcer CM Notes Start: 02/05/22 08:04 Freq: Status: Active Protocol: Activity Type Activity Date Activity User E-sign Co-sign Detail Recorded Client Recorded Date Recorded By Document 02/05/22 08:18 PL [id number] 02/05/22 08:19 PL 02/05/22 08:18 Wound Center Nurse 2 -Time 08:13 -Correct Patient Yes -Correct Side, Site, Position Yes -Correct Procedure Yes -Procedure Performed Yes -Type of Procedure Debridement -Clinical Debridement Subcutaneous -Tissue Removed Subcutaneous -Post Debridement (cm) - Length 0.3 -Post Debridement (cm) - Width 0.6 -Post Debridement (cm) - Depth 0.2 -Total Square (Post) (cm) 0.18 -Area of Debridement (cm) - Length 0.3 -Area of Debridement (cm) - Width 0.6 -Total Square (Area) (cm) 0.18 -Tunneling No -Undermining/Tunneling No -Circular Undermining No -Wound/Ulcer Outcome Not Healed -Ulcer Cleansing Rinsed/ Irrigated with Saline -Foul Odor after Cleansing No -Bioengineered Tissue No -Bleeding Controlled with Pressure -Treatment Response Procedure Tolerated Well -Debridement - Subq, 1st 20sq cm Yes Pain Scale: 0-10 Numeric Is Patient Pain Free? Yes Assessment/Plan Assessment/Plan (1) Uncontrolled type 2 diabetes mellitus with hyperglycemia: CODE(S): E11.65 - Type 2 diabetes mellitus with hyperglycemia (2) Diabetic foot ulcer associated with type 2 diabetes mellitus: CODE(S): E11.621 - Type 2 diabetes mellitus with foot ulcer; L97.509 - Non-pressure chronic ulcer of other part of unspecified foot with unspecified severity QUALIFIERS: Diabetic foot ulcer location: toe Laterality: left Non-pressure ulcer stage: unspecified non-pressure ulcer stage Qualified Code(s): E11.621 - Type 2 diabetes mellitus with foot ulcer; L97.529 - Non-pressure chronic ulcer of other part of left foot with unspecified severity PLAN: Wash left foot and in between toes with antibacterial soap. Promogran to wound base pack well at left hallux. Continue changing socks twice a day for moisture wicking Follow-up in 1 week (3) Open wound of foot: CODE(S): S91.309A - Unspecified open wound, unspecified foot, initial encounter QUALIFIERS: Encounter type: initial encounter Laterality: left Qualified Code(s): S91.302A - Unspecified open wound, left foot, initial encounter (4) Nonhealing nonsurgical wound: CODE(S): T14.8XXA - Other injury of unspecified body region, initial encounter (5) Oral thrush: CODE(S): B37.0 - Candidal stomatitis PLAN: Take fluconazole 100 mg 1 p.o. daily for 14 days with 1 refill if needed
[2022-02-12 08:07] VITALS: BP 144/78; PULSE 87; TEMP 36.4
--- NOTE | 2022-02-12 08:52 | PN.PCM_ITS ---
History of Present Illness Date of Service: 02/12/22 Chief Complaint: Follow-up left second toe and left hallux History of Wound: 65-year-old white male with type 2 diabetes semi well- controlled. He appears to have Charcot of the right foot and a collapsed right arch. Appears with a nonhealing wound to his left second toe under the nail dorsal side and cellulitis to the whole toe. Also back in June developed a blister while on vacation wearing different shoes on the left hallux, that still has not closed and is a small open area full-thickness. Progress of Wound: Left helix is finally healing he is got about 1 more week it suggest a small divot filled in nicely from last week. Subjective Subjective Patient is happy that he will be healed by next week Objective Data Objective Data As stated above no redness or signs of infection noted healing nicely. Vital Signs: Vital Signs Temp Pulse Resp BP 97.5 F L 87 16 144/78 H 02/12/22 08:07 02/12/22 08:07 02/03/22 00:31 02/12/22 08:07 Physical Exam Const oriented x3 General Appearance: cooperative Exam Limitations: no limitations HEENT normocephalic Head and Scalp: normal to inspection Face and Sinus: normal facial exam Nose: external nose normal General Ear: hearing grossly impaired External Ear: external ears normal Mouth: oral and palatal mucosa normal Eyes PERRL General Eye: normal appearance of both eyes Neck full ROM General: normal visual inspection Resp normal respiratory effort Effort and Inspection: able to speak in complete sentences Auscultation: clear to auscultation bilaterally Cardio regular rate and regular rhythm Palpation: normal PMI Rate: regular rate Rhythm: regular rhythm GI Auscultation: normoactive bowel sounds Palpation: soft and no hepatosplenomegaly external exam normal Back/Spine Cervical Spine: cervical ROM normal Thoracic Spine / Upper Back: normal to inspection Lumbar Spine / Lower Back: normal to inspection Extremity normal to inspection General Extremity: normal exam except as noted Skin no rashes or lesions noted Neuro oriented x3 Psych Appearance: grossly normal Speech: normal speech Thought Content: normal thought content Judgement: judgement good Debridement Note Debridement Note Wound debrided: Left hallux Laterality: Left Type of Debridement: Excisional debridement Anesthesia Used: 5% Lidocaine Gel Depth: Down to and including healthy tissue Percentage of wound debrided: 100 Instrument Used: 3mm curette Tissue Removed: Callus and devitalized tissue Severity: Limited To Skin Breakdown Amount of bleeding with debridement: None Patient tolerated procedure: Patient tolerated procedure well Post-Debridement Measurements and Additional Note: Post-Debridement Measurements/Treatment WC - Nurse 1 - General Ulcer Assessment Start: 02/05/22 08:04 Freq: Status: Active Protocol: AIXA Activity Type Activity Date Activity User E-sign Co-sign Detail Recorded Client Recorded Date Recorded By Document 02/05/22 08:04 KR [id number] 02/05/22 08:06 KR Document 02/12/22 08:07 KR [id number] 02/12/22 08:09 KR 02/05/22 02/12/22 08:04 08:07 WC - Today's Visit Information Type of service Follow-up Visit Follow-up Visit (Physician/CURRENCY MACHINE OPERATOR (Physician/CURRENCY MACHINE OPERATOR ) ) Arrival Mode Ambulatory Ambulatory Patient Identification Verified (Name & Yes Yes ) Vital Signs Temperature (97.8 F-99.1 F) 97.8 F 97.5 F L Temperature Source Temporal Temporal Pulse Rate (60-100) 82 87 Pulse Location Monitor Monitor Blood Pressure (90/60-120/80) 132/70 H 144/78 H Blood Pressure Mean (mm Hg) 90 100 Source Monitor Monitor Position Sitting Semi-Fowlers Blood Pressure Location Left Arm Left Arm History Since Last Visit- (Skip if this is Patient's initial visit) Have you changed medications since your No No last visit? Any new allergies or adverse reactions No No Had a fall/change in ADL's that may No No increase risk of falls Signs or symptoms of abuse and/or No No neglect since last visit Have you been in the hospital since your No No last visit? Has dressing in place as prescribed Yes Yes Has compression in place as prescribed N/A N/A Has offloadiing in place as prescribed N/A N/A Experienced any changes in pain level or No No management Left Footwear Regular Shoe Regular Shoe Right Footwear Regular Shoe Regular Shoe Pain Scale: 0-10 Numeric Is Patient Pain Free? Yes Yes DOMINIQUE Renee Nurse 1 - General Ulcer Measurement Start: 02/05/22 08:04 Freq: Status: Active Protocol: Activity Type Activity Date Activity User E-sign Co-sign Detail Recorded Client Recorded Date Recorded By Document 02/05/22 08:04 KR [id number] 02/05/22 08:06 KR Document 02/12/22 08:07 KR [id number] 02/12/22 08:09 KR 02/05/22 02/12/22 08:04 08:07 Wound Center Nurse 1 #2 Left Hallux -Current Size (cm) - Length 0.1 0.3 -Current Size (cm) - Width 0.2 0.3 -Current Size (cm) - Depth 0.2 0.1 -Total Square Cm 0.02 0.09 -Exudate Amt Small Small -Exudate Type Serosanguineous Serosanguineous -Wound Margin Distinct, Distinct, Outline Outline Attached Attached -Granulation Amt Small (1-33%) Small (1-33%) -Granulation Quality Pale [place] -Necrosis Amt Small (1-33%) None Present (0 %) -Necrotic Tissue Type Adherent Slough -Texture (Gricelda-wound Skin Appearance) Assessed, Assessed, Scarring Scarring -Moisture (Gricelda-wound Skin Appearance) No Abnormality, No Abnormality, Assessed Assessed -Color (Gricelda-wound Skin Appearance) No Abnormality, No Abnormality, Assessed Assessed -Temperature (Gricelda-wound Skin No Abnormality No Abnormality Appearance) (Pt Warm) (Pt Warm) -Tenderness on Palpation (Gricelda-wound No No Skin Appearance) -Ulcer Cleansing Rinsed/ Rinsed/ Irrigated with Irrigated with Saline Saline -Foul Odor after Cleansing No No -Anesthetic Used 5% Lidocaine 5% Lidocaine Gel Gel WC - Nurse 2 - General Ulcer CM Notes Start: 02/05/22 08:04 Freq: Status: Active Protocol: Activity Type Activity Date Activity User E-sign Co-sign Detail Recorded Client Recorded Date Recorded By Document 02/05/22 08:18 PL [id number] 02/05/22 08:19 PL Document 02/12/22 08:15 MW [id number] 02/12/22 08:17 MW 02/05/22 02/12/22 08:18 08:15 Wound Center Nurse 2 #2 Left Hallux -Time 08:13 08:16 -Correct Patient Yes Yes -Correct Side, Site, Position Yes Yes -Correct Procedure Yes Yes -Procedure Performed Yes Yes -Type of Procedure Debridement Debridement -Clinical Debridement Subcutaneous Subcutaneous -Tissue Removed Subcutaneous Subcutaneous -Post Debridement (cm) - Length 0.3 0.1 -Post Debridement (cm) - Width 0.6 0.1 -Post Debridement (cm) - Depth 0.2 0.1 -Total Square (Post) (cm) 0.18 0.01 -Area of Debridement (cm) - Length 0.3 0.1 -Area of Debridement (cm) - Width 0.6 0.1 -Total Square (Area) (cm) 0.18 0.01 -Tunneling No No -Undermining/Tunneling No No -Circular Undermining No No -Wound/Ulcer Outcome Not Healed Not Healed -Ulcer Cleansing Rinsed/ Rinsed/ Irrigated with Irrigated with Saline Saline -Foul Odor after Cleansing No No -Bioengineered Tissue No No -Bleeding Controlled with Pressure Pressure -Treatment Response Procedure Procedure Tolerated Well Tolerated Well -Offloading No -Debridement - Subq, 1st 20sq cm Yes Yes Pain Scale: 0-10 Numeric Is Patient Pain Free? Yes Yes - Nurse 3 - General Ulcer D/C NN Start: 02/05/22 08:04 Freq: Status: Active Protocol: Activity Type Activity Date Activity User E-sign Co-sign Detail Recorded Client Recorded Date Recorded By Document 02/05/22 08:25 KR [id number] 02/05/22 08:26 KR Document 02/12/22 08:17 MW [id number] 02/12/22 08:18 MW 02/05/22 02/12/22 08:25 08:17 Wound Care Nurse 3 #2 Left Hallux -Ulcer Cleansing Rinsed/ Rinsed/ Irrigated with Irrigated with Saline Saline -Foul Odor after Cleansing No -Negative Pressure Wound Therapy N/A -Primary Dressing Applied Promogran Promogran -Primary Dressing Covered/Secured with Dry Gauze, Dry Gauze, Secured with Secured with Tape Tape -Promogran 1 1 Treatment Response Procedure Tolerated Well Pain Scale: 0-10 Numeric Is Patient Pain Free? Yes Yes Teaching: Wound Center Dressing Your Wound -Person Taught Patient,Family -Teaching Method Discussion, Demonstration -Response to teaching Verbalize understanding WC - Visit Discharge Discharge Condition Stable Stable Ambulatory Status Ambulatory Ambulatory Transportation Private Auto Private Auto Accompanied by self Medication Reconcilliation completed & No provided to patient/care provider Clinical Summary of Care Provided Yes Assessment/Plan Assessment/Plan (1) Uncontrolled type 2 diabetes mellitus with hyperglycemia: CODE(S): E11.65 - Type 2 diabetes mellitus with hyperglycemia (2) Diabetic foot ulcer associated with type 2 diabetes mellitus: CODE(S): E11.621 - Type 2 diabetes mellitus with foot ulcer; L97.509 - Non-pressure chronic ulcer of other part of unspecified foot with unspecified severity QUALIFIERS: Diabetic foot ulcer location: toe Laterality: left Non-pressure ulcer stage: unspecified non-pressure ulcer stage Qualified Code(s): E11.621 - Type 2 diabetes mellitus with foot ulcer; L97.529 - Non- pressure chronic ulcer of other part of left foot with unspecified severity PLAN: Wash left foot and in between toes with antibacterial soap. Promogran to wound base pack well at left hallux. Continue changing socks twice a day for moisture wicking Follow-up in 1 week (3) Open wound of foot: CODE(S): S91.309A - Unspecified open wound, unspecified foot, initial encounter QUALIFIERS: Encounter type: initial encounter Laterality: left Qualified Code(s): S91.302A - Unspecified open wound, left foot, initial encounter (4) Nonhealing nonsurgical wound: CODE(S): T14.8XXA - Other injury of unspecified body region, initial encounter (5) Oral thrush: CODE(S): B37.0 - Candidal stomatitis
[2022-02-19 08:10] VITALS: BP 133/79; PULSE 89; TEMP 36.2
--- NOTE | 2022-02-19 08:57 | PCM.WC.PN ---
History of Present Illness Date of Service: 02/19/22 Chief Complaint: Follow-up left second toe and left hallux History of Wound: 65-year-old white male with type 2 diabetes semi well-controlled. He appears to have Charcot of the right foot and a collapsed right arch. Appears with a nonhealing wound to his left second toe under the nail dorsal side and cellulitis to the whole toe. Also back in June developed a blister while on vacation wearing different shoes on the left hallux, that still has not closed and is a small open area full-thickness. Progress of Wound: Left hallux is healed. Will be discharged from the wound center. Subjective Subjective Patient is happy with being discharged Objective Data Objective Data Both the left second toe dorsal side and the left hallux are both healed. Vital Signs: Vital Signs Temp Pulse Resp BP 97.2 F L 89 16 133/79 H 02/19/22 08:10 02/19/22 08:10 02/03/22 00:31 02/19/22 08:10 Physical Exam Const oriented x3 General Appearance: cooperative Exam Limitations: no limitations HEENT normocephalic Head and Scalp: normal to inspection Face and Sinus: normal facial exam Nose: external nose normal General Ear: hearing grossly impaired External Ear: external ears normal Mouth: oral and palatal mucosa normal Eyes PERRL General Eye: normal appearance of both eyes Neck full ROM General: normal visual inspection Resp normal respiratory effort Effort and Inspection: able to speak in complete sentences Auscultation: clear to auscultation bilaterally Cardio regular rate and regular rhythm Palpation: normal PMI Rate: regular rate Rhythm: regular rhythm GI Auscultation: normoactive bowel sounds Palpation: soft and no hepatosplenomegaly external exam normal Back/Spine Cervical Spine: cervical ROM normal Thoracic Spine / Upper Back: normal to inspection Lumbar Spine / Lower Back: normal to inspection Extremity normal to inspection General Extremity: normal exam except as noted Skin no rashes or lesions noted Neuro oriented x3 Psych Appearance: grossly normal Speech: normal speech Thought Content: normal thought content Judgement: judgement good Debridement Note Debridement Note No debridement was completed: No debridement was completed today Post-Debridement Measurements and Additional Note: Post-Debridement Measurements/Treatment DOMINIQUE - Nurse 1 - General Ulcer Assessment Start: 02/05/22 08:04 Freq: Status: Active Protocol: WC.LOWEXT Activity Type Activity Date Activity User E-sign Co-sign Detail Recorded Client Recorded Date Recorded By Document 02/05/22 08:04 LIZ [id number] 02/05/22 08:06 KR Document 02/12/22 08:07 KR [id number] 02/12/22 08:09 KR Document 02/19/22 08:10 AK [id number] 02/19/22 08:12 AK 02/05/22 02/12/22 02/19/22 08:04 08:07 08:10 - Today's Visit Information Type of service Follow-up Visit Follow-up Visit Follow-up Visit (Physician/FERMENTING CELLARS SUPERVISOR (Physician/FERMENTING CELLARS SUPERVISOR (Physician/FERMENTING CELLARS SUPERVISOR ) ) ) Arrival Mode Ambulatory Ambulatory Patient Identification Verified (Name & Yes Yes Yes ) Patient Requires Transmission-Based No Precautions Safety Precautions NA Vital Signs Temperature (97.8 F-99.1 F) 97.8 F 97.5 F L 97.2 F L Temperature Source Temporal Temporal Temporal Pulse Rate (60-100) 82 87 89 Pulse Location Monitor Monitor Monitor Blood Pressure (90/60-120/80) 132/70 H 144/78 H 133/79 H Blood Pressure Mean (mm Hg) 90 100 97 Source Monitor Monitor Monitor Position Sitting Semi-Fowlers Blood Pressure Location Left Arm Left Arm History Since Last Visit- (Skip if this is Patient's initial visit) Have you changed medications since your No No No last visit? Any new allergies or adverse reactions No No No Had a fall/change in ADL's that may No No No increase risk of falls Signs or symptoms of abuse and/or No No No neglect since last visit Have you been in the hospital since your No No No last visit? Has dressing in place as prescribed Yes Yes Yes Has compression in place as prescribed N/A N/A N/A Has offloadiing in place as prescribed N/A N/A N/A Experienced any changes in pain level or No No No management Left Footwear Regular Shoe Regular Shoe Regular Shoe Right Footwear Regular Shoe Regular Shoe Regular Shoe Pain Scale: 0-10 Numeric Is Patient Pain Free? Yes Yes Yes - Nurse 1 - General Ulcer Measurement Start: 02/05/22 08:04 Freq: Status: Active Protocol: Activity Type Activity Date Activity User E-sign Co-sign Detail Recorded Client Recorded Date Recorded By Document 02/05/22 08:04 KR [id number] 02/05/22 08:06 KR Document 02/12/22 08:07 KR [id number] 02/12/22 08:09 KR Document 02/19/22 08:10 AK [id number] 02/19/22 08:12 AK 02/05/22 02/12/22 02/19/22 08:04 08:07 08:10 Wound Center Nurse 1 #2 Left Hallux -Combined with other wound No -Current Size (cm) - Length 0.1 0.3 0.1 -Current Size (cm) - Width 0.2 0.3 0.1 -Current Size (cm) - Depth 0.2 0.1 0.1 -Total Square Cm 0.02 0.09 0.01 -Date of Last Picture (Recall this 02/19/22 field) -Photo Taken Yes -Tunneling No -Undermining/Tunneling No -Circular Undermining No -Change in Wound Grade/Stage No -Exudate Amt Small Small None Present -Exudate Type Serosanguineous Serosanguineous -Wound Margin Distinct, Distinct, Distinct, Outline Outline Outline Attached Attached Attached -Granulation Amt Small (1-33%) Small (1-33%) None Present (0 %) -Granulation Quality Pale [place] N/A -Slough/Fibrin No -Necrosis Amt Small (1-33%) None Present (0 None Present (0 %) %) -Necrotic Tissue Type Adherent Slough -Structure Exposed N/A -Texture (Gricelda-wound Skin Appearance) Assessed, Assessed, No Abnormality, Scarring Scarring Assessed -Moisture (Gricelda-wound Skin Appearance) No Abnormality, No Abnormality, No Abnormality, Assessed Assessed Assessed -Color (Gricelda-wound Skin Appearance) No Abnormality, No Abnormality, No Abnormality, Assessed Assessed Assessed -Temperature (Gricelda-wound Skin No Abnormality No Abnormality No Abnormality Appearance) (Pt Warm) (Pt Warm) (Pt Warm) -Tenderness on Palpation (Gricelda-wound No No No Skin Appearance) -Ulcer Cleansing Rinsed/ Rinsed/ Rinsed/ Irrigated with Irrigated with Irrigated with Saline Saline Saline -Foul Odor after Cleansing No No No -Anesthetic Used 5% Lidocaine 5% Lidocaine 5% Lidocaine Gel Gel Gel WC - Nurse 2 - General Ulcer CM Notes Start: 02/05/22 08:04 Freq: Status: Active Protocol: Activity Type Activity Date Activity User E-sign Co-sign Detail Recorded Client Recorded Date Recorded By Document 02/05/22 08:18 PL [id number] 02/05/22 08:19 PL Document 02/12/22 08:15 MW [id number] 02/12/22 08:17 MW Document 02/19/22 08:31 MW [id number] 02/19/22 08:31 MW 02/05/22 02/12/22 02/19/22 08:18 08:15 08:31 Wound Center Nurse 2 #2 Left Hallux -Time 08:13 08:16 08:31 -Correct Patient Yes Yes Yes -Correct Side, Site, Position Yes Yes Yes -Correct Procedure Yes Yes Yes -Procedure Performed Yes Yes No -Type of Procedure Debridement Debridement -Clinical Debridement Subcutaneous Subcutaneous -Tissue Removed Subcutaneous Subcutaneous -Post Debridement (cm) - Length 0.3 0.1 0 -Post Debridement (cm) - Width 0.6 0.1 0 -Post Debridement (cm) - Depth 0.2 0.1 0 -Total Square (Post) (cm) 0.18 0.01 0 -Area of Debridement (cm) - Length 0.3 0.1 -Area of Debridement (cm) - Width 0.6 0.1 -Total Square (Area) (cm) 0.18 0.01 -Tunneling No No -Undermining/Tunneling No No -Circular Undermining No No -Wound/Ulcer Outcome Not Healed Not Healed Healed- Epithelialized -Ulcer Cleansing Rinsed/ Rinsed/ Irrigated with Irrigated with Saline Saline -Foul Odor after Cleansing No No -Bioengineered Tissue No No -Bleeding Controlled with Pressure Pressure -Treatment Response Procedure Procedure Tolerated Well Tolerated Well -Offloading No -Debridement - Subq, 1st 20sq cm Yes Yes Pain Scale: 0-10 Numeric Is Patient Pain Free? Yes Yes Yes DOMINIQUE - Nurse 3 - General Ulcer D/C NN Start: 02/05/22 08:04 Freq: Status: Active Protocol: Activity Type Activity Date Activity User E-sign Co-sign Detail Recorded Client Recorded Date Recorded By Document 02/05/22 08:25 KR [id number] 02/05/22 08:26 KR Document 02/12/22 08:17 MW [id number] 02/12/22 08:18 MW 02/05/22 02/12/22 08:25 08:17 Wound Care Nurse 3 #2 Left Hallux -Ulcer Cleansing Rinsed/ Rinsed/ Irrigated with Irrigated with Saline Saline -Foul Odor after Cleansing No -Negative Pressure Wound Therapy N/A -Primary Dressing Applied Promogran Promogran -Primary Dressing Covered/Secured with Dry Gauze, Dry Gauze, Secured with Secured with Tape Tape -Promogran 1 1 Treatment Response Procedure Tolerated Well Pain Scale: 0-10 Numeric Is Patient Pain Free? Yes Yes Teaching: Wound Center Dressing Your Wound -Person Taught Patient,Family -Teaching Method Discussion, Demonstration -Response to teaching Verbalize understanding WC - Visit Discharge Discharge Condition Stable Stable Ambulatory Status Ambulatory Ambulatory Transportation Private Auto Private Auto Accompanied by self Medication Reconcilliation completed & No provided to patient/care provider Clinical Summary of Care Provided Yes Assessment/Plan Assessment/Plan (1) Uncontrolled type 2 diabetes mellitus with hyperglycemia: CODE(S): E11.65 - Type 2 diabetes mellitus with hyperglycemia (2) Diabetic foot ulcer associated with type 2 diabetes mellitus: CODE(S): E11.621 - Type 2 diabetes mellitus with foot ulcer; L97.509 - Non-pressure chronic ulcer of other part of unspecified foot with unspecified severity QUALIFIERS: Diabetic foot ulcer location: toe Laterality: left Non-pressure ulcer stage: unspecified non-pressure ulcer stage Qualified Code(s): E11.621 - Type 2 diabetes mellitus with foot ulcer; L97.529 - Non-pressure chronic ulcer of other part of left foot with unspecified severity PLAN: Left hallux is resolved patient be discharged from the wound center can follow-up as needed (3) Open wound of foot: CODE(S): S91.309A - Unspecified open wound, unspecified foot, initial encounter QUALIFIERS: Encounter type: initial encounter Laterality: left Qualified Code(s): S91.302A - Unspecified open wound, left foot, initial encounter (4) Nonhealing nonsurgical wound: CODE(S): T14.8XXA - Other injury of unspecified body region, initial encounter (5) Oral thrush: CODE(S): B37.0 - Candidal stomatitis
== END 2022-02-20 15:48 | disposition home or self-care (01) ==
LOC: WC 08:00
PROVIDERS: PCP Family Medicine; Referring Provider Nurse Practitioner; Visit Provider Nurse Practitioner
DX: E11.621 Type 2 diabetes mellitus with foot ulcer (principal); L97.521 Non-pressure chronic ulcer of other part of left foot limited to breakdown of skin; E11.65 Type 2 diabetes mellitus with hyperglycemia; E11.610 Type 2 diabetes mellitus with diabetic neuropathic arthropathy; L03.032 Cellulitis of left toe; B37.0 Candidal stomatitis
CPT/HCPCS: 11042; 99213; G0463

== ENCOUNTER 2022-03-25 05:53 | Day surgery (SDC) | payer OTHER, SELFPAY ==
--- NOTE | 2022-03-20 08:48 | EKG12_ITS ---
Test Reason : PREOP Blood Pressure : / mmHG Vent. Rate : 088 BPM Atrial Rate : 088 BPM P-R Int : 216 ms QRS Dur : 086 ms QT Int : 356 ms P-R-T Axes : 048 -33 004 degrees QTc Int : 430 ms Sinus rhythm with 1st degree A-V block Left axis deviation Inferior infarct , age undetermined Anterolateral infarct , age undetermined Abnormal ECG Confirmed by VANE CASTELLANOS, ASIA ([id number]), story editor JING STRATTON ([id number]) on 03/21/2022 10:11:21 AM Referred By: Jorge Brice Confirmed By:ASIA CIFUENTES MD
[2022-03-25] VITALS (11 sets, daily range): BP systolic 124–139; BP diastolic 74–85; PULSE 78–102; RESP 14–18; TEMP 36.5–37.3; O2SAT 95–100; BMI 33.5
--- NOTE | 2022-03-25 06:28 | HP.PCM_ITS ---
History and Physical Date of Admission: 03/25/22 Intake Vital Signs ? 10/16/2207:31 03/12/2208:12 Height 6 ft 6 ft Weight: ? 246 lb BMI ? 33.3 BP ? 125/76 H Blood Pressure Location ? Rt brachial Position ? Sitting Respiration ? 16 Pulse ? 89 Pulse Source ? Monitor Temp ? 97.4 F L Temp Source ? Temporal Pulse Oximetry (%) ? 97 Oxygen Delivery Method ? 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 Is patient in pain?: No Allergies No Known Allergies Allergy (Verified 03/12/22 08:12) Medications glimepiride 4 mg tablet 4 mg PO BID 04/07/16 [History Confirmed 03/12/22] aspirin 81 mg tablet,delayed release 81 mg PO DAILY@0800 05/06/18 [History Confirmed 03/12/22] dulaglutide 1.5 mg/0.5 mL subcutaneous pen injector 1.5 mg SQ QWEEK 05/06/18 [History Confirmed 03/12/22] fish oil-dha-epa 1,200 mg-144 mg-216 mg capsule 1 ea PO BID 05/06/18 [History Confirmed 03/12/22] psyllium husk 0.52 gram capsule 0.52 g PO DAILY 05/06/18 [History Confirmed 03/12/22] empagliflozin 10 mg tablet (Jardiance) 10 mg PO DAILY 06/13/19 [History Confirmed 03/12/22] metformin 1,000 mg tablet 1,000 mg PO BID #180 tabs 06/13/19 [History Confirmed 03/12/22] lisinopril 10 mg tablet 10 mg PO DAILY #90 tabs 06/14/19 [Rx Confirmed 03/12/22] sildenafil 100 mg tablet 100 mg PO DAILY PRN . 06/11/20 [History Confirmed 03/12/22] rosuvastatin 20 mg tablet 20 mg PO DAILY #90 tabs 05/24/21 [Rx Confirmed 03/12/22] coenzyme Q10 100 mg capsule 100 mg PO DAILY 06/07/21 [History Confirmed 03/12/22] hydroxyurea 500 mg capsule 500 mg PO QHS 06/07/21 [History Confirmed 03/12/22] carvedilol 12.5 mg tablet 17.75 mg PO BID 07/17/21 [History Confirmed 03/12/22] hydroxyurea 1,000 mg tablet 1,000 mg PO DAILY 07/17/21 [History Confirmed 03/12/22] loratadine 10 mg chewable tablet (Claritin) 10 mg PO DAILY 09/09/21 [History Confirmed 03/12/22] loratadine 10 mg tablet (Claritin) 10 mg PO DAILY 10/09/21 [History Confirmed 03/12/22] allopurinol 300 mg tablet 300 mg PO DAILY 10/30/21 [History Confirmed 03/12/22] clindamycin HCl 300 mg capsule 300 mg PO TID 11/04/21 [History Confirmed 03/12/22] Nurse's Note: Patient states has episodes of pain, vomitting, and diarrhea. Patient states last time he vomited was a week ago. PFSH Medical History? Atherosclerosis of coronary artery of [place] heart without angina pectoris Back pain Cancer Cardiology follow-up encounter COVID-19 CPAP (continuous positive airway pressure) dependence Diabetes Enlarged prostate Erectile dysfunction Erythrocytosis Gallstones High cholesterol History of echocardiogram History of heart attack History of myocardial infarction in adulthood (~2015) History of pain when walking HTN (hypertension) Hyperlipidemia Non-smoker Sleep apnea Type 2 diabetes mellitus without complication Wears glasses Surgical History? H/O vasectomy History of cardiac catheterization History of colonoscopy (~2008) History of coronary artery stent placement (04/22/16) History of tonsillectomy Hx of cataract surgery Hx of wisdom tooth extraction Family History? Grandmother?? Myocardial infarctionFather?? Heart disease Social History? Smoking Status:? Never smoker alcohol intake:? never substance use type:? does not use caffeine:? Yes Type: coffee Number of servings: 1 and tea HPI HPI HPI: 66-year-old male here with right upper quadrant pain.? The patient had known cholelithiasis but this did not bother him much until now and now he is having more frequent attacks in the right upper quadrant with nausea.? These are brought on by eating greasy foods. ROS General General: Yes fatigue; No weight change, appetite, colon cancer, breast cancer or weakness HEENT HEENT: No difficulty swallowing, eye injury, eye surgery, swollen glands or hoarseness Endo Endocrine: Yes diabetes mellitus; No thyroid disease, thyroid cancer, Hair loss, heat intolerance or cold intolerance Skin Skin: No rash or changing moles Breast Breast: No left breast lump, right breast lump, nipple discharge, breast pain, abnormal mammogram, abnormal US or breast enlargement Musc Musculoskeletal: Yes gout; No back problems, arthritis, rheumatoid arthritis or joint pain Cardio Cardiovascular: Yes heart disease, heart attack and heart stent; No murmur, pacemaker, atrial fibrillation, high blood pressure, palpitations, shortness of breat with exertion or chest pain Psych Psychiatric: No depression, anxiety or hearing voices Resp Respiratory: No shortness of breath, Yes sleep apnea, No cough, No COPD, No asthma, No emphysema and No wheezing Gastro Gastrointestinal: Yes abdominal pain, Yes nausea or vomiting, Yes diarrhea, Yes constipation, No blood in stool, No acid reflux, No hemorrhoids, No ulcers, Yes gallbladder problem and No black,tarry stools [facility] Hematologic: No blood thinners, Yes blood disorders, No bleeding, No anemia and No blood clots Neuro Neurologic: No system reviewed and no additional complaints, except as documented, No as per HPI, No abnormal gait, No abnormal hearing, No abnormal movements, No abnormal speech, No behavioral changes, No burning sensations, No confusion, No convulsions, No disequilibrium, No dizziness, No localized weakness, No frequent falls, No headache(s), No lack of coordination, No loss of vision, No memory loss, No numbness, No other visual disturbances, No radicular pain, No restless legs, No sensory deficit, No syncope, No tingling, No tremor(s), No weakness and No other Exam Const General: cooperative Orientation: alert and oriented x3 HENMT Head: normal to inspection Neck Neck: normal visual inspection and full ROM Chest Chest palpation & inspection: normal inspection of the chest Resp Effort & Inspection: normal respiratory effort Auscultation: clear to auscultation bilaterally Cardio Rate: regular rate Rhythm: regular rhythm GI Inspection: non-distended Palpation: soft and nontender Skin General: no rashes or lesions noted Neuro General: patient alert and patient oriented x3 Extrem General: full ROM Psych Appearance: grossly normal Mental Status: mental status grossly normal Assessment and Plan Assessment and Plan (1) Gallstones: ?Status:?Acute ?Plan: Patient has cholelithiasis and is having more frequent right upper quadrant attacks.? I recommended laparoscopic cholecystectomy. I discussed the procedure in detail with the patient.? I discussed the risks, benefits, and alternatives of the procedure.? I discussed the risks including but not limited to bleeding, infection, injury to surrounding organs such as the liver, bile duct, bowels.? I did discuss the possibility of having to convert to an open procedure as well as the possibility that if any injuries occurred this may necessitate further surgery at a tertiary care center. Jorge Brice MD Pager: [facility] [address] [place] [address] [address] [place] [address] Office: I have seen and reexamined the patient and there are no changes
[2022-03-25] MEDS: Lactated Ringers 1,000 ML 15 ML IV ×2 (06:52→10:24)
[2022-03-25] MEDS: Cefotetan 2 GM in 0.9% NS 100 ML IV (07:23)
--- NOTE | 2022-03-25 07:30 | RAD_ITS ---
INDICATION: LAP ALANIS WITH IOC EXAMINATION/TECHNIQUE: Limited spot intraoperative films are presented for evaluation. Total Fluoroscopic Time: 14.8 seconds Number of Fluoroscopic Images: Radiation dosage : 9.43 mGy COMPARISON: None. FINDINGS: Single CINE fluoroscopic sequence obtained demonstrates contrast injection.. No radiologist was present for the procedure, please refer to operative report for details. RAD/Cholangiogram/ O R,Initial IMPRESSION: Please refer to operative report for details. Electronically Signed: Feliberto Swanson MD at 11:35 EDT ,
--- NOTE | 2022-03-25 07:30 | GALL_PTH ---
PATIENT: JOSE JOVEL [place] [facility] [place][id number] AGE/SX: 66/M ROOM: RE03/25/[address]: Dr. Jorge Brice MD : 1955 BED: DIS: 03/25/2022 SPEC #: [id number] RECD: 03/25/22 10:01 STATUS: JUAN WELLS #: [id number] EDWIGE: 03/25/22 07:[address]: Jorge Brice DEPT: SURGICAL PATHOLOGY RECD BY: Maximiliano Diop ENTERED: 03/25/22 10:37 SP TYPE: KELLIE PACE DR: Dr. Swapnil Osullivan MD Tissues: Gallbladder, NOS Procedures: Surgery Specimen Level III HEADER OPERATION: Laparoscopic cholecystectomy, attempted IOC PRE-OP DIAGNOSIS: Cholelithiasis TISSUE SUBMITTED: Gallbladder MICROSCOPIC DIAGNOSIS Gallbladder, cholecystectomy: Chronic cholecystitis and cholelithiasis. AM:neema 03/26/2022 MICROSCOPIC DESCRIPTION Slides are reviewed. GROSS DESCRIPTION Received is one container labeled with the patient's name and designated gallbladder. The specimen consists of a gallbladder measuring 7 cm in length and up to 3.5 cm in diameter. The external surface is pink-morgan, smooth and glistening for the most part. Focally it is granular, hemorrhagic and contains cautery artifact. The gallbladder contains green-yellow mucoid bile and multiple black, mulberry stones measuring in aggregate 3.5 x 4 x 0.5 cm and 0.2 to 1 cm in greatest dimension. The mucosa is bile-stained and without any mass lesions. The gallbladder wall measures up to 0.2 cm in thickness. Bricklayer Tender sections from the gallbladder and the cystic duct are submitted in one cassette. / SJ:neema 03/25/2022 TC:3 CPT: 58957
[2022-03-25] MEDS: Bupivacaine 0.25% 30 ML Vial (07:45)
[2022-03-25 08:06] LABS: Bedside Glucose 156 mg/dL (74-106)
--- NOTE | 2022-03-25 08:43 | PCM.OPRPT ---
Report of Operation Date of Procedure: 03/25/22 Pre-Operative Diagnosis: Cholelithiasis Post-Operative Diagnosis: Cholelithiasis and chronic cholecystitis Surgery/Procedure Performed:: Laparoscopic cholecystectomy Specimen's removed: Gallbladder Description of Procedure: After obtaining informed consent patient was brought back to the operating room. General anesthesia was induced. The abdomen was prepped and draped in usual sterile fashion. A small midline incision was made superior to the umbilicus and deepened to the level of fascia. The fascia was elevated and incised. Next the peritoneum was elevated and incised in the same fashion. Finger sweep was performed and the Warren trocar was placed into the abdomen. The balloon was inflated. The abdomen was inflated to 15 mmHg. Next a camera was introduced into the abdomen and the abdomen was inspected. Next under direct visualization three 5-mm ports were placed one subxiphoid and 2 subcostal. Next the gallbladder was elevated and retracted toward the right shoulder. The peritoneum was stripped from the gallbladder. The infundibulum was located and retracted laterally. Next the triangle of Calot was dissected and the cystic duct and cystic artery were identified. Cholangiograms were attempted but the cystic duct was occluded. Three hemolock clips were placed across the cystic duct. The cystic duct was then divided leaving 2 clips on the stump. The cystic artery was clipped and divided in the same fashion. The hook cautery was then used to take the gallbladder off of the gallbladder bed. Hemostasis was obtained. There was some spillage of bile. Gallbladder fossa was irrigated and no active bleeding or bile leakage was noted. Next the camera was introduced in the subxiphoid port. An Endopouch bag was placed through the umbilical port and the gallbladder was placed into it. The gallbladder was then removed through the umbilical incision. The camera was then reinserted through the umbilical port. The gallbladder fossa was inspected once more and noted to be hemostatic with no leaking bile. The abdomen was suctioned dry. The 5 mm ports were removed under direct visualization. The umbilical port was then removed and the air was removed from the abdomen. Next using an 0 Vicryl suture the umbilical fascia was closed in a [id number] fashion. The umbilical port site was irrigated local anesthetic was administered to all the incisions. All the incisions were closed with interrupted subcuticular 4-0 Monocryl sutures followed by Steri-Strips and dressings. The patient was awoken and taken to PACU in stable condition. Admit VTE Documentation VTE Mechan Device Prophylaxis: SCD's
--- NOTE | 2022-03-25 08:57 | DCINST_ITS ---
Discharge Instructions Procedure Gallbladder Diet Discharge Diet: Light diet - advance as tolerated Activity Discharge Activity: May Not Drive (for 2-3 days or while taking narcotic pain medications.) and - (Do not drive, work heavy equipment or sign legal documents for 24 hours.) May shower in (days): 1 Lifting Restrictions: 20 lbs for 2 weeks Additional Activity Instructions:: Pain medication may cause nausea. You should typically eat light foods as you take your pain medications. Pain medication may also cause constipation. If this is a problem for you, please discuss with your doctor. Dressing / Incision Call your doctor if your incision/area has: Continuous Slow Oozing, Sudden Increased Bleeding, Increased Pain/ Swelling, Increased Redness and Foul Smelling Discharge Call your doctor if you observe: Fever of 101 or Higher Suture Line Care: Avoid Pulling/Pushing and Avoid Pinching/Bending Remove Dressing in: 2 days Additional Dressing/Incision Instructions:: Leave operative bandaids on for 2 days. When you remove dressing, leave Steri-Strips on until your follow-up appointment, or until the Steri-Strips fall off on their own. Follow Up Care Please Follow Up With: Jorge Brice MD When: Please call to schedule 2 week follow up appointment. [phone] Test Results: Test results from this visit will be discussed in further detail at your follow- up appointment, if applicable. Discharge Plan Admission Attending Provider: Jorge Brice Primary Care Provider: Swapnil Osullivan Discharge Orders/Prescriptions Prescriptions: New oxycodone-acetaminophen [Percocet] 5-325 mg tablet 1 - 2 tab PO Q6H PRN (Reason: pain) 5 Days Qty: 30 0RF Continued lisinopril 10 mg tablet 10 mg PO DAILY Qty: 90 3RF metformin 1,000 mg tablet 1,000 mg PO BID Qty: 180 Jardiance 10 mg tablet 10 mg PO DAILY sildenafil 100 mg tablet 100 mg PO DAILY PRN (Reason: Edema) hydroxyurea 500 mg capsule 500 mg PO QHS coenzyme Q10 100 mg capsule 100 mg PO DAILY glimepiride 4 MG tablet 4 mg PO BID Label Comments: aspirin 81 MG tablet 81 mg PO DAILY@0800 psyllium husk 0.52 GM capsule 2.6 g PO TID fish oil-dha-epa 1 EACH capsule 1 ea PO BID Trulicity 1.5 MG/0.5 ML pen injector 1.5 mg SQ QWEEK loratadine [Claritin] 10 mg Tablet 10 mg PO DAILY hydroxyurea 1,000 mg Tablet 1,000 mg PO DAILY carvedilol 12.5 mg tablet 17.75 mg PO BID Rx Instructions: TAKE 1 AND 1/2 TABLETS TWICE DAILY allopurinol 300 mg Tablet 300 mg PO DAILY rosuvastatin 20 mg tablet 20 mg PO DAILY Qty: 90 3RF Referrals / Follow Up: Swapnil Osullivan MD [Primary Care Provider] - Disposition Disposition (needs filled in before D/C Order can be placed): Home, Self Care
[2022-03-25 09:16] LABS: Bedside Glucose 191 mg/dL (74-106)
[2022-03-25] MEDS: oxyCODONE 5 MG Tablet PO (11:05)
[2022-03-25] MEDS: Acetaminophen 325 MG Tablet PO (11:05)
== END 2022-03-25 12:51 | disposition home or self-care (01) ==
LOC: SDC 05:53 → AC 05:54
PROVIDERS: PCP Family Medicine; Referring Provider Surgery; Visit Provider Surgery
PROC: (CPT 47610; principal; 2022-03-25 07:10)
DX: K80.10 Calculus of gallbladder with chronic cholecystitis without obstruction (principal); E11.9 Type 2 diabetes mellitus without complications; I25.2 Old myocardial infarction; G47.30 Sleep apnea, unspecified; I25.10 Atherosclerotic heart disease of native coronary artery without angina pectoris; I10 Essential (primary) hypertension; E78.00 Pure hypercholesterolemia, unspecified; Z86.16 Personal history of COVID-19; Z95.5 Presence of coronary angioplasty implant and graft; Z79.82 Long term (current) use of aspirin; Z79.899 Other long term (current) drug therapy; Z79.84 Long term (current) use of oral hypoglycemic drugs
CPT/HCPCS: 47562; 00790; 74300; 76000; 82962; 88304; 93005; J7120; J2405

== ENCOUNTER 2022-08-28 13:47 | Emergency (ER) | payer MEDICARE, OTHER, SELFPAY ==
[2022-08-28 13:48] VITALS: BP 154/80; PULSE 119; RESP 16; TEMP 36.5; O2SAT 97
[2022-08-28 14:07] VITALS: BP 130/64; PULSE 118; RESP 17; O2SAT 96; BMI 31.7
--- NOTE | 2022-08-28 14:26 | EKG12_ITS ---
Test Reason : Blood Pressure : / mmHG Vent. Rate : 117 BPM Atrial Rate : 117 BPM P-R Int : 204 ms QRS Dur : 090 ms QT Int : 288 ms P-R-T Axes : 027 -41 -06 degrees QTc Int : 401 ms Sinus tachycardia Left axis deviation Inferior infarct , age undetermined Anterolateral infarct , age undetermined , cannot be excluded Abnormal ECG Confirmed by JEISON CASTELLANOS, DOLLY ([id number]), editor farm journal JING STRATTON ([id number]) on 09/01/2022 11:06:20 AM Referred By: YORDAN Confirmed By:DOLLY MCHUGH MD
--- NOTE | 2022-08-28 14:26 | RAD_ITS ---
STUDY: X-RAY CHEST REASON FOR EXAM: Male, 66 years old. Weakness and confusion. TECHNIQUE: Single AP portable view of the chest. COMPARISON: None. FINDINGS: EKG electrodes are seen. The lungs are clear and expanded. There is no demonstrated pleural abnormality. There is borderline cardiomegaly. Normal mediastinum and ruthann. Normal visualized pulmonary arteries. Normal visualized aortic arch and descending thoracic aorta. There are diffuse degenerative changes of the visualized thoracic spine. Normal visualized ribs, clavicles, and shoulders. There is no demonstrated abnormality of the visualized soft tissue structures of the upper abdomen. RAD/Chest 1 View (Portable) IMPRESSION: Borderline cardiomegaly. The lungs are clear. Electronically Signed: Shon Camacho MD at 15:10 EST ,
--- NOTE | 2022-08-28 14:27 | EDS_ITS ---
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 He states he awoke this morning and did not feel well.. He is nonspecific in his complaint. He had a low-grade fever this morning reportedly. He complains of pain in his right thigh where there is a lump and pain in his calf. He denies any chest pain or shortness of breath. No recent cough, no hematuria or dysuria. His 's main concern is that he did not feel well this morning, took a nap, and afterwards he was so weak that he could not even get out of bed. He has past medical history of coronary artery disease, but denies any chest pain or any other symptoms, mainly just the weakness and not feeling well. [facility] Atherosclerosis of coronary artery of [place] heart without angina pectoris Back pain Cancer Cardiology follow-up encounter COVID-19 CPAP (continuous positive airway pressure) dependence Diabetes Enlarged prostate Erectile dysfunction Erythrocytosis Essential hypertension Gallstones Gout High cholesterol History of echocardiogram History of heart attack History of myocardial infarction in adulthood (~2016) History of pain when walking HTN (hypertension) Hyperlipidemia Non-smoker Sleep apnea Type 2 diabetes mellitus without complication Wears glasses Home Medications glimepiride 4 mg tablet 4 mg PO BID 04/07/16 [History Last Taken Unknown] aspirin 81 mg tablet,delayed release 81 mg PO DAILY@0800 05/06/18 [History Last Taken 03/19/22] dulaglutide 1.5 mg/0.5 mL subcutaneous pen injector (Trulicity) 1.5 mg SQ QWEEK 05/06/18 [History Last Taken Unknown] fish oil-dha-epa 1,200 mg-144 mg-216 mg capsule 1 ea PO BID 05/06/18 [History Last Taken Unknown] empagliflozin 10 mg tablet (Jardiance) 10 mg PO DAILY 06/13/19 [History Last Taken Unknown] metformin 1,000 mg tablet 1,000 mg PO BID #180 tabs 06/13/19 [History Last Taken Unknown] lisinopril 10 mg tablet 10 mg PO DAILY #90 tabs 06/14/19 [Rx Last Taken 03/25/22 02:00] coenzyme Q10 100 mg capsule 100 mg PO DAILY 06/07/21 [History Last Taken Unknown] hydroxyurea 500 mg capsule 500 mg PO QHS 06/07/21 [History Last Taken Unknown] loratadine 10 mg tablet (Claritin) 10 mg PO DAILY 10/09/21 [History Last Taken Unknown] allopurinol 300 mg tablet 300 mg PO DAILY gout 10/30/21 [History Last Taken Unknown] rosuvastatin 20 mg tablet 20 mg PO DAILY #90 tabs 06/17/22 [Rx Last Taken Unknown] carvedilol 12.5 mg tablet 13.75 mg PO BID 08/28/22 [History Last Taken Unknown] Allergy/AdvReac Type Severity Reaction Status Date / Time No Known Allergies Allergy Verified 07/22/22 11:29 Family History Grandmother Myocardial infarction Father Heart disease Surgical History H/O vasectomy History of cardiac catheterization History of cholecystectomy (03/25/22) History of colonoscopy (~2008) History of coronary artery stent placement (04/22/16) History of tonsillectomy Hx of cataract surgery Hx of wisdom tooth extraction Social History Smoking Status: Never smoker alcohol intake: never substance use type: does not use caffeine: Yes Type: coffee Number of servings: 1 and tea ROS ROS ED ROS Narrative Constitutional: Low-grade fever, this morning no chills. Generalized weakness. HEENT: No sore throat. No neck pain. No loss of vision. No rhinorrhea. Cardiovascular: No chest pain. No palpitations. No pedal edema. Respiratory: No cough, no shortness of breath. Abdominal: No abdominal pain. No nausea. No vomiting. Genitourinary: No dysuria. No hematuria. Musculoskeletal: Right thigh and lower leg pain. No arthralgias. Neurologic: No headaches. No dizziness. No lightheadedness. Skin: No rash. No change in color. Psychiatric: No depression. No anxiety. EXAM Physical Exam Narrative Exam Narrative: Afebrile. Vital signs noted. HEENT: Normocephalic. Atraumatic. PERRL, EOMI. Neck soft and supple. No point tenderness or step off. Cardiovascular: Positive tachycardia. No murmurs, rubs, or gallops appreciated. Respiratory: No tachypnea. Lungs clear to auscultation bilaterally. Gastrointestinal: Abdomen soft, nontender, with normoactive bowel sounds. No rebound or guarding. Neurological: Awake. Alert. Nonfocal, nonlateralizing. Skin: No rash. Normal color. No pallor. Musculoskeletal: No pedal edema. Full range of motion extremities. Const Vital Signs: 08/28/22 13:48 08/28/22 14:07 08/28/22 14:07 Temperature 97.7 F L Temperature Source Temporal Pulse Rate 119 H 118 H Pulse Rate [Lying] Pulse Rate [Sitting (for 1 minute prior to obtaining)] Pulse Rate [Standing (for 1 minute prior to obtaining)] Respiratory Rate 16 17 Respiratory Effort Normal Respiratory Pattern Normal Blood Pressure 154/80 H 130/64 H Blood Pressure [Lying] Blood Pressure [Sitting (for 1 minute prior to obtaining)] Blood Pressure [Standing (for 1 minute prior to obtaining)] Blood Pressure Mean 104 86 Blood Pressure Mean [Lying] Blood Pressure Mean [Sitting (for 1 minute prior to obtaining)] Blood Pressure Mean [Standing (for 1 minute prior to obtaining)] Pulse Ox 97 96 Oxygen Delivery Method Room Air Room Air 08/28/22 15:07 08/28/22 16:08 Temperature Temperature Source Pulse Rate 112 H Pulse Rate [Lying] 115 H Pulse Rate [Sitting (for 1 minute prior to obtaining)] 115 H Pulse Rate [Standing (for 1 minute prior to obtaining)] 115 H Respiratory Rate 14 Respiratory Effort Respiratory Pattern Blood Pressure 129/72 H Blood Pressure [Lying] 125/75 H Blood Pressure [Sitting (for 1 minute prior to obtaining)] 132/76 H Blood Pressure [Standing (for 1 minute prior to obtaining)] 134/70 H Blood Pressure Mean 91 Blood Pressure Mean [Lying] 91 Blood Pressure Mean [Sitting (for 1 minute prior to obtaining)] 94 Blood Pressure Mean [Standing (for 1 minute prior to obtaining)] 91 Pulse Ox 97 Oxygen Delivery Method Room Air MDM MDM MDM Narrative Medical decision making narrative: For generalized weakness, in the differential diagnosis is dehydration, pneumonia, COVID or influenza/upper respiratory infection, and/or urinary tract infection. Comprehensive work-up was pursued. I will obtain a chest x-ray to help rule out pneumonia. I will obtain urinalysis to see if he has urinary tract infection. CBC and CMP will be obtained to check his kidney function and to look for dehydration or anemia for his weakness, but anemia is less likely as he does not appear pallor on examination. EKG will be obtained to rule out cardiac ischemia. He will be bolused normal saline 1 L intravenously and or thostatics also obtained. In discussion with the certified emergency vehicle technician, preliminary report is negative for DVT in the right lower extremity. Patient EKG was obtained and interpreted by myself which demonstrates sinus tachycardia at 117 bpm without ectopy or acute ST changes. No STEMI. I reviewed his laboratory work and he has slightly elevated white count of 11.4 which I think is nonspecific, hemoglobin slightly hemoconcentrated at 16.6, platelet count normal at 174. Sodium slightly low at 133 with normal potassium of 4.3. Sodium slightly low at 133 with a BUN of 25, at his baseline. He has a normal creatinine of 1.16. Glucose elevated at 237 consistent with his diabetes but he has a normal anion gap of 8. AST slightly low at 14 with an ALT normal at 23. Urinalysis is negative for infection with 0 WBCs, but there are 15 ketones. He may be intravascularly dehydrated. He was bolused normal saline 1 L intravenously. Given his coronary artery disease and feelings of weakness and malaise I did order a high-sensitivity troponin which is 10. He has a negative work-up for his weakness. His reiterated that she was concerned because he was very shaky and generally weak this morning. He was mildly confused. He denies any headache, but I obtained a CT of the brain and reviewed the radiology results which shows no acute process. His neurological exam is otherwise nonfocal. He feels improved after a bolus of fluids and has been up to the bathroom multiple times. I did order an ammonia level also which is normal. At this point in time, given that he has negative COVID and flu swabs, and a chest x-ray that is negative for any pneumothorax or pneumonia on my interpretation, I feel he can be discharged safely home with follow-up. His is comfortable taking him home. I did offer admission for rehabilitation placement/observation, and they declined. I do feel that he can be discharged safely home with follow-up to his primary care physician. Patient states he feels improved. Disposition is discharged home in stable condition. Lab Data Attestation: I reviewed the patient's lab results. Labs: Laboratory Results - last 24 hr 08/28/22 08/28/22 08/28/22 14:45 14:45 14:45 WBC 11.4 H RBC 3.70 L Hgb 16.6 H Hct 46.4 MCV 125.4 H MCH 44.9 H MCHC 35.8 RDW Std Deviation 58.9 H RDW Coeff of Flori 12.4 Plt Count 174 MPV 8.6 Immature Gran % (Auto) 0.800 Neut % (Auto) 90.5 H Lymph % (Auto) 3.9 L Shannon % (Auto) 4.6 Eos % (Auto) 0.0 Baso % (Auto) 0.2 Absolute Neuts (auto) 10.3 H Absolute Lymphs (auto) 0.44 L Nucleated RBC % 0 Differential Comment SCANNED Sodium 133 L Potassium 4.3 Chloride 103 Carbon Dioxide 22.0 Anion Gap 8 BUN 25 H Creatinine 1.16 Estim Creat Clear Calc 72.83 Est GFR (MDRD) Af Amer 81 Est GFR (MDRD) Non-Af 67 BUN/Creatinine Ratio 21.6 H Glucose 237 H Calcium 10.5 H Total Bilirubin 1.70 H AST 14 L ALT 23 Alkaline Phosphatase 75 Ammonia Troponin I High Sens Total Protein 7.8 Albumin 4.1 Globulin 3.7 Albumin/Globulin Ratio 1.1 Urine Color Straw Urine Clarity Clear Urine pH 5.0 Ur Specific [place] 1.015 Urine Protein Negative Urine Glucose (UA) 1000 H Urine Ketones 15 H Urine Occult Blood 25 H Urine Nitrite Negative Urine Bilirubin Negative Urine Urobilinogen Normal Ur Leukocyte Esterase Negative Urine RBC 0-5 SEEN Urine WBC 0 SEEN Ur Squamous Epith Cells 0-5 SEEN Urine Bacteria 0 SEEN Urine Mucus 0 SEEN 08/28/22 08/28/22 14:45 16:30 WBC RBC Hgb Hct MCV MCH MCHC RDW Std Deviation RDW Coeff of Flori Plt Count MPV Immature Gran % (Auto) Neut % (Auto) Lymph % (Auto) Shannon % (Auto) Eos % (Auto) Baso % (Auto) Absolute Neuts (auto) Absolute Lymphs (auto) Nucleated RBC % Differential Comment Sodium Potassium Chloride Carbon Dioxide Anion Gap BUN Creatinine Estim Creat Clear Calc Est GFR (MDRD) Af Amer Est GFR (MDRD) Non-Af BUN/Creatinine Ratio Glucose Calcium Total Bilirubin AST ALT Alkaline Phosphatase Ammonia 31.0 Troponin I High Sens 10 Total Protein Albumin Globulin Albumin/Globulin Ratio Urine Color Urine Clarity Urine pH Ur Specific [place] Urine Protein Urine Glucose (UA) Urine Ketones Urine Occult Blood Urine Nitrite Urine Bilirubin Urine Urobilinogen Ur Leukocyte Esterase Urine RBC Urine WBC Ur Squamous Epith Cells Urine Bacteria Urine Mucus Radiography Diagnostic Testing: Clinical Impression(s) from Imaging Studies Chest X-Ray 08/28/22 14:26 IMPRESSION: Borderline cardiomegaly. The lungs are clear. Electronically Signed: Shon Camacho MD at 15:10 EST , Venous Doppler Study 08/28/22 14:27 Interpretation Summary Deep veins of the right lower extremity are patent and compressible segmentally. There is no evidence of right lower extremity deep vein thrombosis. The right great saphenous vein appears patent and compressible segmentally. Ordering Physician: Booker Vega Referring Physician: Swapnil Osullivan Performed By: Beatriz Cristobal RVT Brain CT 08/28/22 16:43 IMPRESSION: No acute intracranial or calvarial abnormality. Electronically Signed: Car Meier DO at 16:55 EST , Discharge Plan Triage Chief Complaint: Weakness ED Provider: Booker Vega Dx/Rx/DC Orders Clinical Impression: Generalized weakness, Shakiness, Confusion Instructions: ED Confusion, ED Weakness (Uncertain Cause) Prescriptions: No Action lisinopril 10 mg tablet 10 mg PO DAILY Qty: 90 3RF metformin 1,000 mg tablet 1,000 mg PO BID Qty: 180 Jardiance 10 mg tablet 10 mg PO DAILY hydroxyurea 500 mg capsule 500 mg PO QHS coenzyme Q10 100 mg capsule 100 mg PO DAILY glimepiride 4 MG tablet 4 mg PO BID Label Comments: aspirin 81 MG tablet 81 mg PO DAILY@0800 fish oil-dha-epa 1 EACH capsule 1 ea PO BID Trulicity 1.5 MG/0.5 ML pen injector 1.5 mg SQ QWEEK loratadine [Claritin] 10 mg Tablet 10 mg PO DAILY allopurinol 300 mg Tablet 300 mg PO DAILY carvedilol 12.5 mg tablet 13.75 mg PO BID rosuvastatin 20 mg tablet 20 mg PO DAILY Qty: 90 3RF Primary Care Provider: Swapnil Osullivan Referrals: Swapnil Osullivan MD [Primary Care Provider] - 3-5 Days if not improving Disposition Disposition: Home, Self Care
--- NOTE | 2022-08-28 14:27 | VDLE_ITS ---
Reason For Study: Pain RIGHT GSV is normal. CFV is compressible, spontaneous, phasic, competent and demonstrates normal augmentation. FV is compressible, spontaneous, phasic, competent and demonstrates normal augmentation. POP V is compressible, spontaneous, phasic, competent and demonstrates normal augmentation. T/P Trunk is compressible. PTV is compressible. RT PerV is compressible. Procedure This is a venous duplex using B-mode, color flow and spectral Doppler. Exam performed portable in ED. A preliminary report was called and/or faxed to Dr. Vega. VL/Venous Duplex US, Unilateral Interpretation Summary Deep veins of the right lower extremity are patent and compressible segmentally . There is no evidence of right lower extremity deep vein thrombosis. The right great sapheno us vein appears patent and compressible segmentally. Ordering Physician: Booker Vega Referring Physician: Swapnil Osullivan Performed By: Beatriz Cristobal RVT
[2022-08-28 14:54] LABS: Bacteria 0 SEEN /hpf (None Seen); Mucous, Urine 0 SEEN /hpf (<or=2+); White Blood Cells 0 SEEN /hpf (0-5)
[2022-08-28 15:03] LABS: Absolute Lymphocyte Count 0.44 X10^3/uL (0.83-4.51); Absolute Neutrophil Count 10.3 X10^3/uL (2.0-7.7); Basophil# 0.02 X10^3/uL; Basophil% 0.2 % (0-1); Hematocrit 46.4 % (40-54); Hemoglobin 16.6 g/dL (13.0-16.5); Lymphocyte # 0.44 X10^3/ul (0.83-4.51); Lymphocyte % 3.9 % (19-41); Mean Corp Hgb Conc 35.8 g/dL (32-36); Mean Corpuscular Hgb 44.9 pg (27.0-32.0); Mean Corpuscular Volume 125.4 fL (80-94); Mean Platelet Vol. 8.6 fl (6.2-12.0); Monocyte# 0.53 X10^3/uL; Monocyte% 4.6 % (0-10); NRBC Flagged by Analyzer 0 % (0-5); Neutrophil # 10.33 X10^3/uL (2.7-7.7); Neutrophil % 90.5 % (47-70); POSITIVE DIFFERENTIAL YES; Platelet Count 174 K/mm3 (150-450); RBC Distribution Width CV 12.4 % (11.6-14.6); RBC Distribution Width SD 58.9 fl (35.1-43.9); White Blood Count 11.4 K/mm3 (4.4-11.0)
[2022-08-28 15:07] VITALS: BP 125/75; BP 132/76; BP 134/70; PULSE 115
[2022-08-28 15:11] LABS: Color, Urine Straw (Yellow); Glucose, Dipstick 1000 mg/dl (Normal); Ketone-Dipstick 15 mg/dl (Negative); Leukocyte Esterase-Dipstick Negative /ul (Negative); Nitrite-Dipstick Negative (Negative); Occult Blood-Urine 25 /ul (Negative); Protein-Dipstick Negative (Negative); Specific Gravity, Urine 1.015 (1.002-1.030); Urine Bilirubin Dipstick Negative (Negative); Urine Clarity Clear (Clear); Urine Urobilinogen Normal (Normal)
[2022-08-28] MEDS: 0.9% Normal Saline 1,000 ML 1000 ML IV (15:13)
--- NOTE | 2022-08-28 15:13 | CHAPLAIN ---
Type of Pastoral Visit _x__ Initial Visit ___ Follow-up Visit ___ On-call Visit ___ General Patient Visit ___ Spiritual Assessment ___ Family Conference ___ Bereavement ___ Rapid Response ___ Code Blue ___ Other (describe below) Pastoral Care Referral From ___ Patient ___ Family ___ Nurse ___ Physician ___ Bobbin Loose End Finder ___ Care Process Manager _x__ Other (describe below) Sacrament/Intervention ___ Active listening ___ Anointing ___ Pentecostal ___ Bereavement ___ Communion ___ Erika exploration ___ ___ Life review ___ Prayer ___ Reconciliation ___ Sacrament of Sick _x__ Supportive presence ___ Wedding ___ Other (describe below) Pastoral Comments volunteer requested a visit of support to this patient who came into ED; spouse is with him; introduction and offer of support and presence given; RN came to start process and then left the room
--- NOTE | 2022-08-28 15:15 | ED.RN ---
while doing orthostatic vital signs. noted pt leaning nard to the right. pt states that is different today, has in past but feels more prominent today.
[2022-08-28 15:18] LABS: Red Blood Cells-Urine 0-5 SEEN /hpf (0-5); Squamous Epithelial Cells - UA 0-5 SEEN /hpf (0-5)
[2022-08-28 15:25] LABS: ALB/GLOB Ratio 1.1 RATIO (0.9-2.4); AST(SGOT) 14 U/L (15-37); Alanine Aminotransfer ALT/SGPT 23 U/L (16-61); Albumin, Serum 4.1 g/dL (3.2-5.0); Alkaline Phosphatase 75 U/L (45-117); Anion Gap 8 (5-15); BUN 25 mg/dL (7-18); BUN/Creat Ratio 21.6 RATIO (10-20); Calcium,Total 10.5 mg/dL (8.5-10.1); Chloride 103 mmol/L (98-107); Creatinine, Serum 1.16 mg/dL (0.70-1.30); EST Glomerular Filtration Rate 67 mL/min (>60); Est Glom Filt Rate - Afr Amer 81 mL/min (>60); Estimated Creatinine Clearance 72.83 ml/min; Globulin 3.7 g/dL (2.2-4.2); Glucose 237 mg/dL (74-106); Potassium 4.3 mmol/L (3.5-5.1); Protein, Total 7.8 g/dL (6.4-8.2); Sodium Level 133 mmol/L (136-145)
[2022-08-28 15:51] LABS: Differential Indicated SCAN CRITERIA MET
[2022-08-28 16:04] LABS: Troponin-I HS 10 pg/mL (3.0-78.0)
[2022-08-28 16:08] VITALS: BP 129/72; PULSE 112; RESP 14; O2SAT 97
[2022-08-28 16:23] LABS: Differential Comment SCANNED
--- NOTE | 2022-08-28 16:43 | CT_ITS ---
STUDY: CT BRAIN WITHOUT CONTRAST REASON FOR EXAM: Male, 66 years old. Confusion. RADIATION DOSAGE (If Supplied By Facility): CTDIvol = ( 44.99 ) mGy, DLP = ( 914.22 ) mGycm TECHNIQUE: Transaxial CT imaging of the brain was performed without administration of intravenous contrast material. Individualized dose optimization techniques were used for this CT. COMPARISON: No relevant priors. FINDINGS: Normal soft tissue structures. Normal calvarium. Normal size ventricles and extra-axial spaces for the patient''s age. Normal white matter tracts of the cerebral hemispheres. Normal basal ganglia and thalami. Normal brainstem. Normal cerebellum. There is no intracranial hemorrhage. There are no findings of an acute ischemic infarction. Normal visualized paranasal sinuses. CT/Brain/Head without Contrast IMPRESSION: No acute intracranial or calvarial abnormality. Electronically Signed: Car Meier DO at 16:55 EST ,
[2022-08-28 18:33] VITALS: BP 117/80; PULSE 109; RESP 14; O2SAT 99
== END 2022-08-28 18:59 | disposition home or self-care (01) ==
PROVIDERS: Emergency Provider Emergency Medicine; PCP Family Medicine; Visit Provider Emergency Medicine
DX: R53.1 Weakness (principal); E11.9 Type 2 diabetes mellitus without complications; I25.10 Atherosclerotic heart disease of native coronary artery without angina pectoris; R41.0 Disorientation, unspecified; E78.00 Pure hypercholesterolemia, unspecified; I10 Essential (primary) hypertension; G47.30 Sleep apnea, unspecified; I25.2 Old myocardial infarction; M79.651 Pain in right thigh; Z86.16 Personal history of COVID-19; Z95.5 Presence of coronary angioplasty implant and graft; Z79.82 Long term (current) use of aspirin; Z79.84 Long term (current) use of oral hypoglycemic drugs; Z79.899 Other long term (current) drug therapy
CPT/HCPCS: 70450; 71045; 80053; 81001; 82140; 84484; 85025; 87428; 93005; 93971; 99285; J7030; A4216

== ENCOUNTER → 2022-09-15 | Outpatient (CLI) | payer MEDICARE, OTHER, SELFPAY ==
--- NOTE | 2022-09-15 10:01 | CDU_ITS ---
Reason For Study: TIA Rt. Velocities/BP Lt. Velocities/BP Prox CCA 124.7/15.2 cm/sec. Prox CCA 135.7/22.5 cm/sec. Mid CCA 112/17 cm/sec. Mid CCA 104.7/17 cm/sec. Dist CCA 101/15.2 cm/sec. Dist CCA 97.4/17 cm/sec. Prox ICA 86.1/15.7 cm/sec. Prox ICA 106.5/13.3 cm/sec. Mid ICA 50.9/11.3 cm/sec. Mid ICA 90/26.1 cm/sec. Dist ICA 72.9/20.1 cm/sec. Dist ICA 90/29.8 cm/sec. Rt. ICA/CCA = 0.77. Lt. ICA/CCA = 1.02. Prox ECA 80.6/6.9 cm/sec. Prox ECA 113.8/11.5 cm/sec. Rt. Vert. 59.7/12.4 cm/sec. Lt. Vert. 63/20.1 cm/sec. Right Extracranial There is homogeneous, smooth atherosclerotic plaque noted in the right common carotid artery. There is heterogeneous, irregular atherosclerotic plaque noted in the right internal carotid artery. There is intimal thickening but no significant atherosclerotic plaque noted in the right external carotid artery. Antegrade flow is noted in the right vertebral artery. Left Extracranial There is homogeneous, smooth atherosclerotic plaque noted in the left common carotid artery. There is heterogeneous, smooth atherosclerotic plaque noted in the left internal carotid artery. There is intimal thickening but no significant atherosclerotic plaque noted in the left external carotid artery. Antegrade flow is noted in the left vertebral artery. Procedure Carotid Duplex [id number]. This is a Carotid Duplex examination using B-mode, color flow and specral Doppler. Exam performed in department. VL/Carotid Duplex Ultrasound Interpretation Summary Mild irregular plaque at the proximal right internal carotid artery with less t [place] 50% stenosis Less than 50% stenosis right external carotid artery Heterogenous smooth plaque at the proximal left internal carotid artery with le ss than 50% stenosis Less than 50% stenosis left external carotid artery Patent and antegrade vertebral arteries bilaterally Ordering Physician: Swapnil Osullivan Referring Physician: Swapnli Osullivan Performed By: Beatriz Cristobal RVT
== END | disposition home or self-care (01) ==
LOC: CVS 09:59
PROVIDERS: PCP Family Medicine; Visit Provider Family Medicine
DX: R26.1 Paralytic gait (principal); G45.9 Transient cerebral ischemic attack, unspecified
CPT/HCPCS: 93880

== ENCOUNTER → 2022-09-25 | Outpatient (CLI) | payer MEDICARE, OTHER, SELFPAY ==
--- NOTE | 2022-09-25 06:35 | MRI_ITS ---
EXAM: MR HEAD WITHOUT AND WITH INTRAVENOUS CONTRAST CLINICAL INDICATION: TIA 1 MONTH AGO TECHNIQUE: Multiplanar and multisequence MR images of the brain were obtained without and with intravenous contrast. This report was created using [employer] report generation technology. CONTRAST: 21 mL left IV Clariscan. COMPARISON: CT head without contrast 08/28/2022. FINDINGS: BRAIN AND EXTRA-AXIAL SPACES: Few tiny white matter T2 FLAIR hyperintensity lesions in both cerebral hemispheres are chronic white matter ischemic changes. Prominent CSF space in the posterior aspect of the left sylvian fissure wedged in between the left supramarginal gyrus and the left angular gyrus may represent a small arachnoid cyst. Following IV contrast administration, there are no abnormal enhancing lesions intra-axially and extra-axially. No intra- or extra-axial hemorrhage. Posterior fossa structures are unremarkable. Basal cisterns are patent. No diffusion restriction to suspect acute or subacute ischemic infarct. No midline shift. SELLA: Unremarkable. Normal sella turcica, pituitary gland, infundibular stalk, optic chiasm and hypothalamus. AUDITORY SYSTEM: Unremarkable. The internal auditory canals are patent. BONES/JOINTS: Unremarkable. No discrete lytic or blastic abnormalities. SINUSES: Unremarkable as visualized. Clear. MASTOID AIR CELLS: Unremarkable as visualized. Clear. ORBITS: Unremarkable as visualized. Both globes, extraocular muscles, optic nerves and retrobulbar fat appear unremarkable. VASCULATURE: Unremarkable as visualized. Normal flow voids in the major intracranial circulation. MRI/Brain W/WO Contrast IMPRESSION: 1. No MRI evidence of acute or subacute ischemic infarct, remote cortical-based ischemic infarct, old lacunar infarct or acute intracranial abnormality. 2. Small benign arachnoid cyst at the apex of the left sylvian triangle (sylvian fissure). 3. Small chronic white matter ischemic changes in both cerebral hemispheres. 4. No abnormal enhancing lesions intra-axially and extra-axially. Electronically Signed: Booker Reyes MD at 9:19 EDT ,
== END | disposition home or self-care (01) ==
LOC: MRI 06:35
PROVIDERS: PCP Family Medicine; Referring Provider Family Medicine; Visit Provider Family Medicine
DX: Z09 Encounter for follow-up examination after completed treatment for conditions other than malignant neoplasm (principal); Z86.73 Personal history of transient ischemic attack (TIA), and cerebral infarction without residual deficits
CPT/HCPCS: 70553; A9575

== ENCOUNTER 2023-01-02 09:15 | Outpatient (RCR) | payer MEDICARE, OTHER, SELFPAY ==
[2022-12-26 08:52] VITALS: BP 147/78; PULSE 97; RESP 18; TEMP 36.1; BMI 33.1
--- NOTE | 2022-12-26 13:37 | PCM.WC.HP ---
History of Present Illness Date of Service: 12/26/22 Chief Complaint: non healing ulcer of left lateral malleolus/ankle History of Wound: Be is a 66-year-old white male with type 2 diabetes and a history of poor healing wounds that presents to the wound center today for evaluation and treatment of a nonhealing ulcer of his left lateral ankle/malleolus that started approximately 4 weeks ago. He thinks that his boot was rubbing the area and then noticed that there was drainage and was treating with a bandaid and antibiotic ointment with no improvement and increased drainage and erythema and swelling and then was seen by his PCP who started him on doxycyline and there was still no improvement so he gave him 1 dose of IM Rocephin and then started him on Cephalexin and Bactrim for which he has been taking almost 10 days of treatment and has 5 more days left of medication. He was then referred to the wound center for treatment. He has been covering the wound with gauze and antibiotic ointment but leaving it open to air when he is at home. He appears to have Charcot of the right foot and a collapsed right arch. He has had vascular testing by Dr. Flores his design release engineer at the [facility] last year. His last A1C is unknown. He denies fever, chills, increased erythema or drainage and has been taking his antibiotic as instructed. FOR[facility] Medical History Atherosclerosis of coronary artery of [place] heart without angina pectoris Back pain Cancer Cardiology follow-up encounter COVID-19 CPAP (continuous positive airway pressure) dependence Diabetes Enlarged prostate Erectile dysfunction Erythrocytosis Essential hypertension Gallstones Gout High cholesterol History of echocardiogram History of heart attack History of myocardial infarction in adulthood (~2016) History of pain when walking HTN (hypertension) Hyperlipidemia Non-smoker Sleep apnea Type 2 diabetes mellitus without complication Wears glasses Home Medications glimepiride 4 mg tablet 4 mg PO BID 04/07/16 [History Last Taken Unknown] aspirin 81 mg tablet,delayed release 81 mg PO DAILY@0800 05/06/18 [History Last Taken 03/19/22] dulaglutide 1.5 mg/0.5 mL subcutaneous pen injector (Trulicity) 1.5 mg SQ QWEEK 05/06/18 [History Last Taken Unknown] fish oil-dha-epa 1,200 mg-144 mg-216 mg capsule 1 ea PO BID 05/06/18 [History Last Taken Unknown] empagliflozin 10 mg tablet (Jardiance) 10 mg PO DAILY 06/13/19 [History Last Taken Unknown] metformin 1,000 mg tablet 1,000 mg PO BID #180 tabs 06/13/19 [History Last Taken Unknown] lisinopril 10 mg tablet 10 mg PO DAILY #90 tabs 06/14/19 [Rx Last Taken 03/25/22 02:00] coenzyme Q10 100 mg capsule 100 mg PO DAILY 06/07/21 [History Last Taken Unknown] hydroxyurea 500 mg capsule 500 mg PO QHS 06/07/21 [History Last Taken Unknown] loratadine 10 mg tablet (Claritin) 10 mg PO DAILY 10/09/21 [History Last Taken Unknown] allopurinol 300 mg tablet 300 mg PO DAILY gout 10/30/21 [History Last Taken Unknown] rosuvastatin 20 mg tablet 20 mg PO DAILY #90 tabs 06/17/22 [Rx Last Taken Unknown] carvedilol 12.5 mg tablet 13.75 mg PO BID 08/28/22 [History Last Taken Unknown] cephalexin 500 mg capsule 500 mg PO Q8H 12/26/22 [History Last Taken Unknown] cyclobenzaprine 5 mg tablet 5 mg PO QHS 12/26/22 [History Last Taken Unknown] doxycycline hyclate 100 mg tablet 100 mg PO BID 12/26/22 [History Last Taken Unknown] empagliflozin 10 mg tablet (Jardiance) 10 mg PO DAILY 12/26/22 [History Last Taken Unknown] sulfamethoxazole 800 mg-trimethoprim 160 mg tablet (Bactrim DS) 1 tab PO BID 12/26/22 [History Last Taken Unknown] Allergy/AdvReac Type Severity Reaction Status Date / Time No Known Allergies Allergy Verified 07/22/22 11:29 Family History Grandmother Myocardial infarction Father Heart disease Surgical History H/O vasectomy History of cardiac catheterization History of cholecystectomy (03/25/22) History of colonoscopy (~2008) History of coronary artery stent placement (04/22/16) History of tonsillectomy Hx of cataract surgery Hx of wisdom tooth extraction Social History Smoking Status: Never smoker alcohol intake: never substance use type: does not use caffeine: Yes Type: coffee Number of servings: 1 and tea ROS Constitutional Constitutional: Denies chills, fatigue or fever(s) Eyes Eyes: Denies blurry vision, change in vision or loss of vision ENT HEENT: Denies dysphagia, hearing loss or sore throat Cardiovascular Cardiovascular: Denies chest pain, edema or palpitations Respiratory/Chest Respiratory/Chest: Denies dry cough, dyspnea, dyspnea on exertion, productive cough or wheezing Gastrointestinal Gastrointestinal: Denies diarrhea, nausea or vomiting Genitourinary Genitourinary: Denies dysuria or polyuria Musculoskeletal Musculoskeletal: Denies arthralgias, joint stiffness or muscle weakness Integumentary Integumentary: Reports erythema and wounds Neurologic Neurologic: Denies dizziness, memory loss or weakness Psychiatric Psychiatric: Denies homicidal ideation or suicidal ideation Endocrine Endocrinology: Denies polydipsia, polyphagia or polyuria Hematologic/Lymphatic Hematologic/Lymphatic: Denies easy bleeding or easy bruising Allergic/Immunologic Allergic/Immunologic: Denies throat swelling, tongue swelling or urticaria Vital Signs Vital Signs Vital Signs: 12/26/22 08:52 Temperature 97 F L Temperature Source Oral Pulse Rate 97 Respiratory Rate 18 Blood Pressure 147/78 H Blood Pressure Mean 101 Blood Pressure Source Monitor Blood Pressure Position Semi-Fowlers Blood Pressure Location Left Arm Weight Weight: 112.491 kg Body Mass Index (BMI) 33.1 Physical Exam Const alert, oriented x3 and no apparent distress General Appearance: cooperative and comfortable HEENT normocephalic and head/scalp atraumatic Resp normal respiratory effort Effort and Inspection: able to speak in complete sentences Cardio regular rate and regular rhythm Skin Wounds: wounds noted Wound Narrative: as in clinical panel Psych mental status grossly normal, thought process normal, cooperative and affect normal Debridement Note Debridement Note Wound debrided: left lateral ankle Laterality: Left Wound Grade/Stage: Soler grade 1 Type of Debridement: Excisional debridement Anesthesia Used: 4% Lidocaine Solution, 5% Lidocaine Gel and Cetacaine Depth: Down to and including healthy tissue and in the subcutaneous layer Percentage of wound debrided: 100 Instrument Used: #15 blade and Forceps Tissue Removed: Yellow slough, devitalized tissue Severity: Fat Layer Exposed Amount of bleeding with debridement: Mild Bleeding Controlled with: Compression and gauze Patient tolerated procedure: Patient tolerated procedure well Post-Debridement Measurements and Additional Note: Post-Debridement Measurements/Treatment - Nurse 1 - General Ulcer Assessment Start: 12/26/22 08:52 Freq: Status: Active Protocol: DOMINIQUE.LOWEXT Activity Type Activity Date Activity User E-sign Co-sign Detail Recorded Client Recorded Date Recorded By Document 12/26/22 08:52 [id number] 12/26/22 09:12 RB 12/26/22 08:52 - Today's Visit Information Type of service Initial Visit Arrival Mode Ambulatory Transfer Assistance None Patient Identification Verified (Name & Yes ) Patient Requires Transmission-Based No Precautions Height and Weight Height 6 ft 0.5 in Weight 112.491 kg Weight in Pounds 248.0 lbs Body Mass Index (BMI) 33.1 BMI Classification Obese BSA - [place] 2.35 Vital Signs Temperature (97.8 F-99.1 F) 97 F L Temperature Source Oral Pulse Rate (60-100) 97 Pulse Location Monitor Respiratory Rate (12-18) 18 Respiratory rate source Observation Blood Pressure (90/60-120/80) 147/78 H Blood Pressure Mean 101 Source Monitor Position Semi-Fowlers Blood Pressure Location Left Arm History Since Last Visit- (Skip if this is Patient's initial visit) Have you changed medications since your No last visit? Any new allergies or adverse reactions No Had a fall/change in ADL's that may No increase risk of falls Signs or symptoms of abuse and/or No neglect since last visit Have you been in the hospital since your No last visit? Has dressing in place as prescribed No Has compression in place as prescribed Yes Has offloadiing in place as prescribed No Experienced any changes in pain level or No management Pain Scale: 0-10 Numeric Is Patient Pain Free? Yes Lower Extremity Assessment/ Foot Assessment/ Toe Nail Assessment Right -Posterior Tibial Doppler Multiphasic -Dorsalis Pedis Doppler Multiphasic -Extremity Color Normal -Hair Growth on Legs Yes -Hair Growth on Toes Yes -Temperature of Extremity Warm -Capillary Refill Less than 3 Seconds -Dependent Rubor No -Blanched when Elevated No -Lipodermatosclerosis No -Other Deformity No -Prior Foot Ulcer No -Charcot Joint Yes -Prior Amputation No -Thick Yes -Discolored No -Deformed No -Improper Length & Hygeine Yes Left -Posterior Tibial Palpable Yes -Dorsalis Pedis Palpable Yes -Extremity Color Normal -Hair Growth on Legs Yes -Hair Growth on Toes Yes -Temperature of Extremity Warm -Capillary Refill Less than 3 Seconds -Dependent Rubor No -Blanched when Elevated No -Lipodermatosclerosis No -Other Deformity No -Prior Foot Ulcer No -Charcot Joint No -Prior Amputation No -Thick Yes -Discolored No -Deformed No -Improper Length & Hygeine Yes Neuropathy Assessment Feet - Top Side and Bottom <Entered> (a) Communication Assessment Preferred language [place]ones[place] Elephant Tamer Required No Able to Read Yes Able to Write Yes Communication Tools None Caregiver Communication Skills No Impairment Impairment Right Hearing Abillity Normal Left Hearing Abillity Normal Visual Assistive Devices Glasses Teaching Assessment Preferences Verbal,Written, Demonstration Barriers to Learning None Readiness To Learn Excellent Willingness to Engage in Self Management High Activies Readiness to Engage in Self Management High Activities Anxiety Level Calm Cooperation Cooperative Perception Coherent Interest in Health Problem Asks Questions Education Importance Acknowledges Need Does Patient Smoke tobacco or other No substances Smoking Status Never smoker Is Patient Diabetic Yes Functional Assessment Recent Decline in Ability to Perform Denies Any Declines Culture/Presybeterian/Marketing Consultant Cultural/Presybeterian Needs that may affect No Treatment Plan Would you allow our hospital queen's counsel to No meet you for the purpose of spiritual/ emotional support? Marketing Consultant to contact place of catholic No Teaching: Wound Center *Welcome to the Wound Center -Person Taught Patient -Teaching Method Discussion, Demonstration -Response to teaching Verbalize understanding (a) 1 - -throughout 2 - + 3 - +throught 4 - + 5 - + WC - Nurse 1 - General Ulcer Measurement Start: 12/26/22 08:52 Freq: Status: Active Protocol: Activity Type Activity Date Activity User E-sign Co-sign Detail Recorded Client Recorded Date Recorded By Document 12/26/22 08:52 RB [id number] 12/26/22 09:12 RB 12/26/22 08:52 Wound Center Nurse 1 3. L lateral ankle -Combined with other wound No -Current Size (cm) - Length 1.3 -Current Size (cm) - Width 1 -Current Size (cm) - Depth 0.3 -Total Square Cm 1.3 -Photo Taken Yes -Tunneling No -Undermining/Tunneling No -Circular Undermining No -Exudate Amt Medium -Exudate Type Serosanguineous -Wound Margin Distinct, Outline Attached -Granulation Amt Small (1-33%) -Granulation Quality [place] -Slough/Fibrin Yes -Necrosis Amt Large (67-100%) -Necrotic Tissue Type Adherent Slough -Structure Exposed N/A -Texture (Gricelda-wound Skin Appearance) Assessed -Moisture (Gricelda-wound Skin Appearance) Assessed -Color (Gricelda-wound Skin Appearance) Assessed -Temperature (Gricelda-wound Skin No Abnormality Appearance) (Pt Warm) -Tenderness on Palpation (Gricelda-wound No Skin Appearance) -Ulcer Cleansing Wound Cleanser -Foul Odor after Cleansing No -Anesthetic Used 5% Lidocaine Gel Lower Limb Edema Present Yes Right Calf (cm) 39.5 Right Ankle (cm) 23.5 Left Calf (cm) 40.5 Left Ankle (cm) 26.2 WC - Nurse 2 - General Ulcer CM Notes Start: 12/26/22 08:52 Freq: Status: Active Protocol: Activity Type Activity Date Activity User E-sign Co-sign Detail Recorded Client Recorded Date Recorded By Document 12/26/22 09:30 MW [id number] 12/26/22 10:00 MW 12/26/22 09:30 Wound Center Nurse 2 3. L lateral ankle -Time 09:31 -Correct Patient Yes -Correct Side, Site, Position Yes -Correct Procedure Yes -Procedure Performed Yes -Type of Procedure Debridement -Clinical Debridement Subcutaneous -Tissue Removed Subcutaneous -Post Debridement (cm) - Length 1.2 -Post Debridement (cm) - Width 1.3 -Post Debridement (cm) - Depth 0.2 -Total Square (Post) (cm) 1.56 -Area of Debridement (cm) - Length 1.2 -Area of Debridement (cm) - Width 1.3 -Total Square (Area) (cm) 1.56 -Tunneling No -Undermining/Tunneling No -Circular Undermining No -Wound/Ulcer Outcome Not Healed -Ulcer Cleansing Rinsed/ Irrigated with Saline -Foul Odor after Cleansing No -Bioengineered Tissue No -Bleeding Controlled with Pressure -Treatment Response Procedure Tolerated Well -Offloading No -Debridement - Subq, 1st 20sq cm Yes Pain Scale: 0-10 Numeric Is Patient Pain Free? Yes WC - Nurse 3 - General Ulcer D/C NN Start: 12/26/22 08:52 Freq: Status: Active Protocol: Activity Type Activity Date Activity User E-sign Co-sign Detail Recorded Client Recorded Date Recorded By Document 12/26/22 10:00 MW [id number] 12/26/22 10:01 MW Edit Result 12/26/22 10:00 MW (1) [id number] 12/26/22 10:08 MW (1) Left - Lotion applied to leg before => No compression wrap - Tubular Bandage => Single Layer - Size of Tubigrip Used => Size D - Size D ($) => 2 12/26/22 10:00 Wound Care Center Nurse 3 3. L lateral ankle -Ulcer Cleansing Rinsed/ Irrigated with Saline -Foul Odor after Cleansing No -Negative Pressure Wound Therapy N/A -Primary Dressing Applied Mepilex Border -Other Dressing hydrogel -Mepilex Border 3 Left -Lotion applied to leg before No compression wrap -Tubular Bandage Single Layer -Size of Tubigrip Used Size D -Size D ($) 2 Treatment Response Procedure Tolerated Well Pain Scale: 0-10 Numeric Is Patient Pain Free? Yes Teaching: Wound Center Dressing Your Wound -Person Taught Patient -Teaching Method Discussion, Demonstration -Response to teaching Verbalize understanding WC - Visit Discharge Discharge Condition Stable Ambulatory Status Ambulatory Accompanied by self Medication Reconcilliation completed & No provided to patient/care provider Clinical Summary of Care Provided Yes Assessment/Plan Assessment/Plan (1) Essential hypertension: CODE(S): I10 - Essential (primary) hypertension (2) Uncontrolled type 2 diabetes mellitus with hyperglycemia: CODE(S): E11.65 - Type 2 diabetes mellitus with hyperglycemia (3) Nonhealing nonsurgical wound: CODE(S): T14.8XXA - Other injury of unspecified body region, initial encounter (4) Atherosclerosis of coronary artery of [place] heart without angina pectoris: CODE(S): I25.10 - Atherosclerotic heart disease of [place] coronary artery without angina pectoris QUALIFIERS: Coronary Disease-Associated Artery/Lesion type: [place] artery Qualified Code(s): I25.10 - Atherosclerotic heart disease of [place] coronary artery without angina pectoris (5) Chronic ulcer of left ankle with fat layer exposed: CODE(S): L97.322 - Non-pressure chronic ulcer of left ankle with fat layer exposed (6) Diabetic ulcer of left ankle associated with type 2 diabetes mellitus, with fat layer exposed: CODE(S): E11.622 - Type 2 diabetes mellitus with other skin ulcer; L97.322 - Non-pressure chronic ulcer of left ankle with fat layer exposed (7) Diabetes: CODE(S): E11.9 - Type 2 diabetes mellitus without complications PLAN: Plan Debridement performed today in clinic as annotated above. At home wound-care instructions: Wash ulcer with soap and water and pat dry with clean wash cloth. Will have him use Santyl applied nickel thick to ulcer and lightly moisten and cover with foam dressing. Keep dressing clean and dry. Will have him use tubigrip compression to left leg to help with edema. If he is unable to get Santyl, then would have him apply Promogran or Zohreh and moisten and cover with foam dressing. Off-loading: The patient was instructed to avoid pressure and friction on the affected areas. Reposition every 2 hours at minimum. Avoid prolonged standing and/or dangling of legs. When seated, feet should be elevated at chest level. Frequent ambulation is encouraged. Diet: Patient encouraged to increase protein intake while taking caution to avoid high carbohydrate and/or sugar intake. Labs/cultures/imaging: Culture taken today. Will adjust antibiotic based on results. Follow-up: Return in 1 week for wound care follow up. Return sooner or report to the emergency room should symptoms worsen, or new symptoms arise. Note: [employer] speech recognition photocomposition keyboard operator software was used to create portions of this document. Sound-alike and misspelled words, as well as other photocomposition keyboard operator errors may be contained in the documentation.
[2023-01-02 09:15] VITALS: BP 118/68; PULSE 86; RESP 18; TEMP 36.1; BMI 33.1
--- NOTE | 2023-01-02 13:57 | PN.PCM_ITS ---
History of Present Illness Date of Service: 01/02/23 Chief Complaint: non healing ulcer of left lateral malleolus/ankle History of Wound: Be is a 66-year-old white male with type 2 diabetes and a history of poor healing wounds that presents to the wound center today for evaluation and treatment of a nonhealing ulcer of his left lateral ankle/malleolus that started approximately 4 weeks ago. He thinks that his boot was rubbing the area and then noticed that there was drainage and was treating with a bandaid and antibiotic ointment with no improvement and increased drainage and erythema and swelling and then was seen by his PCP who started him on doxycyline and there was still no improvement so he gave him 1 dose of IM Rocephin and then started him on Cephalexin and Bactrim for which he has been taking almost 10 days of treatment and has 5 more days left of medication. He was then referred to the wound center for treatment. He has been covering the wound with gauze and antibiotic ointment but leaving it open to air when he is at home. He appears to have Charcot of the right foot and a collapsed right arch. He has had vascular testing by Dr. Flores his fluid power mechanic at the [facility] last year. His last A1C is unknown. He denies fever, chills, increased erythema or drainage and has been taking his antibiotic as instructed. Subjective Subjective Calvin returns for follow up of ulcer of lateral left ankle. He received Santyl on Thursday and has been using this and tolerating treatment. Wound culture was negative. He completed antibiotic treatment. Denies fever, chills, increased drainage or pain. Objective Data Objective Data Vital Signs: Vital Signs Temp Pulse Resp BP 97.0 F L 86 18 118/68 01/02/23 09:15 01/02/23 09:15 01/02/23 09:15 01/02/23 09:15 Weight: 112.491 kg Body Mass Index (BMI) 33.1 Lab / Micro Data Micro: Microbiology 12/26/22 09:45 Wound Abcess - Ankle Gram Stain - Final 12/26/22 09:45 Wound Abcess - Ankle Wound Culture - Final No growth aerobically. 12/26/22 09:45 Wound Abcess - Ankle Anaerobic Culture - Final No anaerobic bacteria isolated. Physical Exam Const alert, oriented x3 and no apparent distress General Appearance: cooperative and comfortable HEENT normocephalic and head/scalp atraumatic Resp normal respiratory effort Effort and Inspection: able to speak in complete sentences Cardio regular rate and regular rhythm Skin Wounds: wounds noted Wound Narrative: as in clinical panel Psych mental status grossly normal, thought process normal, cooperative and affect normal Debridement Note Debridement Note Wound debrided: left lateral ankle Laterality: Left Wound Grade/Stage: Soler grade 1 Type of Debridement: Excisional debridement Anesthesia Used: 4% Lidocaine Solution, 5% Lidocaine Gel and Cetacaine Depth: Down to and including healthy tissue and in the subcutaneous layer Percentage of wound debrided: 100 Instrument Used: #15 blade and Forceps Tissue Removed: Yellow slough, devitalized tissue Severity: Fat Layer Exposed Amount of bleeding with debridement: Mild Bleeding Controlled with: Compression and gauze Patient tolerated procedure: Patient tolerated procedure well Post-Debridement Measurements and Additional Note: Post-Debridement Measurements/Treatment WC - Nurse 1 - General Ulcer Assessment Start: 12/26/22 08:52 Freq: Status: Active Protocol: AIXA Activity Type Activity Date Activity User E-sign Co-sign Detail Recorded Client Recorded Date Recorded By Document 12/26/22 08:52 RB [id number] 12/26/22 09:12 RB Document 01/02/23 09:15 [id number] 01/02/23 09:25 12/26/22 01/02/23 08:52 09:15 - Today's Visit Information Type of service Initial Visit Follow-up Visit (Physician/CABLE COVERER ) Arrival Mode Ambulatory Ambulatory Transfer Assistance None Patient Identification Verified (Name & Yes Yes ) Patient Requires Transmission-Based No Precautions Safety Precautions NA Height and Weight Height 6 ft 0.5 in Weight 112.491 kg Weight in Pounds 248.0 lbs Body Mass Index (BMI) 33.1 33.1 BMI Classification Obese Obese BSA - Bay 2.35 Vital Signs Temperature (97.8 F-99.1 F) 97 F L 97.0 F L Temperature Source Oral Temporal Pulse Rate (60-100) 97 86 Pulse Location Monitor Monitor Respiratory Rate (12-18) 18 18 Respiratory rate source Observation Observation Blood Pressure (90/60-120/80) 147/78 H 118/68 Blood Pressure Mean (mm Hg) 101 84 Source Monitor Monitor Position Semi-Fowlers Sitting Blood Pressure Location Left Arm Left Arm History Since Last Visit- (Skip if this is Patient's initial visit) Have you changed medications since your No No last visit? Any new allergies or adverse reactions No No Had a fall/change in ADL's that may No No increase risk of falls Signs or symptoms of abuse and/or No No neglect since last visit Have you been in the hospital since your No No last visit? Has dressing in place as prescribed No Yes Has compression in place as prescribed Yes N/A Has offloadiing in place as prescribed No N/A Experienced any changes in pain level or No No management Left Footwear Regular Shoe Right Footwear Regular Shoe Pain Scale: 0-10 Numeric Is Patient Pain Free? Yes Yes Lower Extremity Assessment/ Foot Assessment/ Toe Nail Assessment Right -Posterior Tibial Doppler Multiphasic -Dorsalis Pedis Doppler Multiphasic -Extremity Color Normal -Hair Growth on Legs Yes -Hair Growth on Toes Yes -Temperature of Extremity Warm -Capillary Refill Less than 3 Seconds -Dependent Rubor No -Blanched when Elevated No -Lipodermatosclerosis No -Other Deformity No -Prior Foot Ulcer No -Charcot Joint Yes -Prior Amputation No -Thick Yes -Discolored No -Deformed No -Improper Length & Hygeine Yes Left -Posterior Tibial Palpable Yes -Dorsalis Pedis Palpable Yes -Extremity Color Normal -Hair Growth on Legs Yes -Hair Growth on Toes Yes -Temperature of Extremity Warm -Capillary Refill Less than 3 Seconds -Dependent Rubor No -Blanched when Elevated No -Lipodermatosclerosis No -Other Deformity No -Prior Foot Ulcer No -Charcot Joint No -Prior Amputation No -Thick Yes -Discolored No -Deformed No -Improper Length & Hygeine Yes Neuropathy Assessment Feet - Top Side and Bottom <Entered> (a) Communication Assessment Preferred language Vietnamese Inspector Brake Lining Required No Able to Read Yes Able to Write Yes Communication Tools None Caregiver Communication Skills No Impairment Impairment Right Hearing Abillity Normal Left Hearing Abillity Normal Visual Assistive Devices Glasses Teaching Assessment Preferences Verbal,Written, Demonstration Barriers to Learning None Readiness To Learn Excellent Willingness to Engage in Self Management High Activies Readiness to Engage in Self Management High Activities Anxiety Level Calm Cooperation Cooperative Perception Coherent Interest in Health Problem Asks Questions Education Importance Acknowledges Need Does Patient Smoke tobacco or other No substances Smoking Status Never smoker Is Patient Diabetic Yes Functional Assessment Recent Decline in Ability to Perform Denies Any Declines Culture/Mormon/Business Transformation Consultant Cultural/Mormon Needs that may affect No Treatment Plan Would you allow our hospital waste duster to No meet you for the purpose of spiritual/ emotional support? Business Transformation Consultant to contact place of faith No Teaching: Wound Center *Welcome to the Wound Center -Person Taught Patient -Teaching Method Discussion, Demonstration -Response to teaching Verbalize understanding (a) 1 - -throughout 2 - + 3 - +throught 4 - + 5 - + WC - Nurse 1 - General Ulcer Measurement Start: 12/26/22 08:52 Freq: Status: Active Protocol: Activity Type Activity Date Activity User E-sign Co-sign Detail Recorded Client Recorded Date Recorded By Document 12/26/22 08:52 RB [id number] 12/26/22 09:12 RB Document 01/02/23 09:15 JF [id number] 01/02/23 09:25 JF 12/26/22 01/02/23 08:52 09:15 Wound Center Nurse 1 3. L lateral ankle -Combined with other wound No No -Current Size (cm) - Length 1.3 1.0 -Current Size (cm) - Width 1 1.4 -Current Size (cm) - Depth 0.3 0.3 -Total Square Cm 1.3 1.40 -Photo Taken Yes Yes -Epithelialization None Present -Tunneling No No -Undermining/Tunneling No No -Circular Undermining No No -Exudate Amt Medium Medium -Exudate Type Serosanguineous Serosanguineous -Wound Margin Distinct, Flat & Intact Outline Attached -Granulation Amt Small (1-33%) None Present (0 %) -Granulation Quality Mckenna -Slough/Fibrin Yes Yes -Necrosis Amt Large (67-100%) Large (67-100%) -Necrotic Tissue Type Adherent Slough Adherent Slough -Structure Exposed N/A N/A -Texture (Gricelda-wound Skin Appearance) Assessed Assessed -Moisture (Gricelda-wound Skin Appearance) Assessed Assessed,Dry/ Scaly -Color (Gricelda-wound Skin Appearance) Assessed Assessed -Temperature (Gricelda-wound Skin No Abnormality No Abnormality Appearance) (Pt Warm) (Pt Warm) -Tenderness on Palpation (Gricelda-wound No No Skin Appearance) -Ulcer Cleansing Wound Cleanser Rinsed/ Irrigated with Saline -Foul Odor after Cleansing No No -Anesthetic Used 5% Lidocaine 5% Lidocaine Gel Gel Lower Limb Edema Present Yes Yes Right Calf (cm) 39.5 Right Ankle (cm) 23.5 Left Calf (cm) 40.5 39.3 Left Ankle (cm) 26.2 25.2 WC - Nurse 2 - General Ulcer CM Notes Start: 12/26/22 08:52 Freq: Status: Active Protocol: Activity Type Activity Date Activity User E-sign Co-sign Detail Recorded Client Recorded Date Recorded By Document 12/26/22 09:30 MW [id number] 12/26/22 10:00 MW Document 01/02/23 09:58 [id number] 01/02/23 10:10 12/26/22 01/02/23 09:30 09:58 Wound Center Nurse 2 3. L lateral ankle -Time 09:31 09:58 -Correct Patient Yes Yes -Correct Side, Site, Position Yes Yes -Correct Procedure Yes Yes -Procedure Performed Yes Yes -Type of Procedure Debridement Debridement -Clinical Debridement Subcutaneous Subcutaneous -Tissue Removed Subcutaneous Subcutaneous -Post Debridement (cm) - Length 1.2 1.0 -Post Debridement (cm) - Width 1.3 1.2 -Post Debridement (cm) - Depth 0.2 0.3 -Total Square (Post) (cm) 1.56 1.20 -Area of Debridement (cm) - Length 1.2 1.0 -Area of Debridement (cm) - Width 1.3 1.2 -Total Square (Area) (cm) 1.56 1.20 -Tunneling No No -Undermining/Tunneling No No -Circular Undermining No No -Wound/Ulcer Outcome Not Healed Not Healed -Ulcer Cleansing Rinsed/ Rinsed/ Irrigated with Irrigated with Saline Saline -Foul Odor after Cleansing No No -Bioengineered Tissue No No -Bleeding Controlled with Pressure Silver Nitrate -Treatment Response Procedure Procedure Tolerated Well Tolerated Well -Offloading No No -Debridement - Subq, 1st 20sq cm Yes Yes Pain Scale: 0-10 Numeric Is Patient Pain Free? Yes Yes - Nurse 3 - General Ulcer D/C NN Start: 12/26/22 08:52 Freq: Status: Active Protocol: Activity Type Activity Date Activity User E-sign Co-sign Detail Recorded Client Recorded Date Recorded By Document 12/26/22 10:00 MW [id number] 12/26/22 10:01 MW Edit Result 12/26/22 10:00 MW (1) [id number] 12/26/22 10:08 MW Document 01/02/23 10:29 JF [id number] 01/02/23 10:30 JF (1) Left - Lotion applied to leg before => No compression wrap - Tubular Bandage => Single Layer - Size of Tubigrip Used => Size D - Size D ($) => 2 12/26/22 01/02/23 10:00 10:29 Wound Care Center Nurse 3 3. L lateral ankle -Ulcer Cleansing Rinsed/ Rinsed/ Irrigated with Irrigated with Saline Saline -Foul Odor after Cleansing No No -Negative Pressure Wound Therapy N/A -Primary Dressing Applied Mepilex Border Mepilex Border -Other Dressing hydrogel santyl to ulcer nickel thickness -Mepilex Border 3 1 Left -Lotion applied to leg before No compression wrap -Tubular Bandage Single Layer Single Layer -Size of Tubigrip Used Size D Size D -Size D ($) 2 0 Treatment Response Procedure Tolerated Well Pain Scale: 0-10 Numeric Is Patient Pain Free? Yes Yes Teaching: Wound Center Dressing Your Wound -Person Taught Patient -Teaching Method Discussion, Demonstration -Response to teaching Verbalize understanding WC - Visit Discharge Discharge Condition Stable Stable Ambulatory Status Ambulatory Ambulatory Transportation Private Auto Accompanied by self Medication Reconcilliation completed & No Yes provided to patient/care provider Clinical Summary of Care Provided Yes Yes Assessment/Plan Assessment/Plan (1) Essential hypertension: CODE(S): I10 - Essential (primary) hypertension (2) Uncontrolled type 2 diabetes mellitus with hyperglycemia: CODE(S): E11.65 - Type 2 diabetes mellitus with hyperglycemia (3) Nonhealing nonsurgical wound: CODE(S): T14.8XXA - Other injury of unspecified body region, initial encounter (4) Atherosclerosis of coronary artery of [place] heart without angina pectoris: CODE(S): I25.10 - Atherosclerotic heart disease of [place] coronary artery without angina pectoris QUALIFIERS: Coronary Disease-Associated Artery/Lesion type: [place] artery Qualified Code(s): I25.10 - Atherosclerotic heart disease of [place] coronary artery without angina pectoris (5) Chronic ulcer of left ankle with fat layer exposed: CODE(S): L97.322 - Non-pressure chronic ulcer of left ankle with fat layer exposed (6) Diabetic ulcer of left ankle associated with type 2 diabetes mellitus, with fat layer exposed: CODE(S): E11.622 - Type 2 diabetes mellitus with other skin ulcer; L97.322 - Non-pressure chronic ulcer of left ankle with fat layer exposed (7) Diabetes: CODE(S): E11.9 - Type 2 diabetes mellitus without complications QUALIFIERS: Diabetes mellitus type: type 2 Diabetes mellitus residential insulin use: unspecified residential insulin use status Diabetes mellitus complication status: with skin complications Diabetes mellitus complication detail: with other skin ulcer Qualified Code(s): E11.622 - Type 2 diabetes mellitus with other skin ulcer; L98.499 - Non-pressure chronic ulcer of skin of other sites with unspecified severity PLAN: Plan Debridement performed today in clinic as annotated above. At home wound-care instructions: Wash ulcer with soap and water and pat dry with clean wash cloth. Will have him use Santyl applied nickel thick to ulcer and lightly moisten and cover with foam dressing. Keep dressing clean and dry. Will have him use tubigrip compression to left leg to help with edema. Off-loading: The patient was instructed to avoid pressure and friction on the affected areas. Reposition every 2 hours at minimum. Avoid prolonged standing and/or dangling of legs. When seated, feet should be elevated at chest level. Frequent ambulation is encouraged. Diet: Patient encouraged to increase protein intake while taking caution to avoid high carbohydrate and/or sugar intake. Labs/cultures/imaging: Culture negative for infection. Sending for records of vascular studies. May refer to vascular for possible arteriogram and possible need for vascular intervention if not healing. Follow-up: Return in 1 week for wound care follow up. Return sooner or report to the emergency room should symptoms worsen, or new symptoms arise. Note: [employer] speech recognition core drilling supervisor software was used to create portions of this document. Sound-alike and misspelled words, as well as other core drilling supervisor errors may be contained in the documentation.
== END 2023-01-02 23:59 | disposition home or self-care (01) ==
LOC: WC 09:15
PROVIDERS: PCP Family Medicine; Referring Provider Family Medicine; Visit Provider Family Medicine
DX: E11.622 Type 2 diabetes mellitus with other skin ulcer (principal); L97.322 Non-pressure chronic ulcer of left ankle with fat layer exposed; E11.65 Type 2 diabetes mellitus with hyperglycemia; E11.610 Type 2 diabetes mellitus with diabetic neuropathic arthropathy; Z79.84 Long term (current) use of oral hypoglycemic drugs; I10 Essential (primary) hypertension; I25.10 Atherosclerotic heart disease of native coronary artery without angina pectoris; E78.00 Pure hypercholesterolemia, unspecified; Z79.82 Long term (current) use of aspirin; Z79.899 Other long term (current) drug therapy
CPT/HCPCS: 11042; 87070; 87075; 87205; 99213; G0463

== ENCOUNTER 2023-01-30 08:30 | Outpatient (RCR) | payer MEDICARE, OTHER, SELFPAY ==
[2023-01-03 01:47] VITALS: BP 118/68; PULSE 86; RESP 18; TEMP 36.1; BMI 33.1
[2023-01-09 09:09] VITALS: BP 135/77; PULSE 87; RESP 16; TEMP 36.7; BMI 33.1
--- NOTE | 2023-01-09 15:07 | PN.PCM_ITS ---
History of Present Illness Date of Service: 01/09/23 Chief Complaint: non healing ulcer of left lateral malleolus/ankle History of Wound: Be is a 66-year-old white male with type 2 diabetes and a history of poor healing wounds that presents to the wound center today for evaluation and treatment of a nonhealing ulcer of his left lateral ankle/malleolus that started approximately 4 weeks ago. He thinks that his boot was rubbing the area and then noticed that there was drainage and was treating with a bandaid and antibiotic ointment with no improvement and increased drainage and erythema and swelling and then was seen by his PCP who started him on doxycyline and there was still no improvement so he gave him 1 dose of IM Rocephin and then started him on Cephalexin and Bactrim for which he has been taking almost 10 days of treatment and has 5 more days left of medication. He was then referred to the wound center for treatment. He has been covering the wound with gauze and antibiotic ointment but leaving it open to air when he is at home. He appears to have Charcot of the right foot and a collapsed right arch. 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 His last A1C is unknown. He denies fever, chills, increased erythema or drainage and has been taking his antibiotic as instructed. Subjective Subjective Calvin returns for follow up of ulcer of lateral left ankle. He has been treating with Santyl and tolerating treatment. Wound culture was negative. He completed antibiotic treatment. Ulcer is getting larger and is swollen and has increased erythema today. Denies fever, chills, increased drainage or pain. Objective Data Objective Data Vital Signs: Vital Signs Temp Pulse Resp BP O2 Del Method 98.0 F 87 16 135/77 H Room Air 01/09/23 09:09 01/09/23 09:09 01/09/23 09:09 01/09/23 09:09 01/09/23 09:09 Oxygen Delivery Method Room Air Weight: 112.491 kg Body Mass Index (BMI) 33.1 Physical Exam Const alert, oriented x3 and no apparent distress General Appearance: cooperative and comfortable HEENT normocephalic and head/scalp atraumatic Resp normal respiratory effort Effort and Inspection: able to speak in complete sentences Cardio regular rate and regular rhythm Skin Wounds: wounds noted Wound Narrative: as in clinical panel Psych mental status grossly normal, thought process normal, cooperative and affect normal Debridement Note Debridement Note Wound debrided: left lateral ankle Laterality: Left Wound Grade/Stage: Soler grade 1 Type of Debridement: Excisional debridement Anesthesia Used: 4% Lidocaine Solution, 5% Lidocaine Gel and Cetacaine Depth: Down to and including healthy tissue and in the subcutaneous layer Percentage of wound debrided: 100 Instrument Used: #15 blade and Forceps Tissue Removed: Yellow slough, devitalized tissue Severity: Fat Layer Exposed Amount of bleeding with debridement: Mild Bleeding Controlled with: Compression and gauze Patient tolerated procedure: Patient tolerated procedure well Post-Debridement Measurements and Additional Note: Post-Debridement Measurements/Treatment - Nurse 1 - General Ulcer Assessment Start: 01/09/23 09:08 Freq: Status: Active Protocol: AIXA Activity Type Activity Date Activity User E-sign Co-sign Detail Recorded Client Recorded Date Recorded By Document 01/09/23 09:09 [id number] 01/09/23 09:18 01/09/23 09:09 WC - Today's Visit Information Type of service Follow-up Visit (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 ) Arrival Mode Ambulatory Transfer Assistance None Accompanied by self Patient Identification Verified (Name & No ) Safety Precautions NA Height and Weight Body Mass Index (BMI) 33.1 BMI Classification Obese Vital Signs Temperature (97.8 F-99.1 F) 98.0 F Temperature Source Temporal Pulse Rate (60-100) 87 Pulse Location Monitor Respiratory Rate (12-18) 16 Respiratory rate source Observation Oxygen Delivery Method Room Air Blood Pressure (90/60-120/80) 135/77 H Blood Pressure Mean (mm Hg) 96 Source Monitor Position Supine Blood Pressure Location Left Arm History Since Last Visit- (Skip if this is Patient's initial visit) Have you changed medications since your No last visit? Any new allergies or adverse reactions No Had a fall/change in ADL's that may No increase risk of falls Signs or symptoms of abuse and/or No neglect since last visit Have you been in the hospital since your No last visit? Has dressing in place as prescribed Yes Has compression in place as prescribed N/A Has offloadiing in place as prescribed No Experienced any changes in pain level or No management Left Footwear Regular Shoe Right Footwear Regular Shoe Pain Scale: 0-10 Numeric Is Patient Pain Free? Yes WC - Nurse 1 - General Ulcer Measurement Start: 01/09/23 09:08 Freq: Status: Active Protocol: Activity Type Activity Date Activity User E-sign Co-sign Detail Recorded Client Recorded Date Recorded By Document 01/09/23 09:09 MW [id number] 01/09/23 09:18 MW 01/09/23 09:09 Wound Center Nurse 1 3. L lateral ankle -Combined with other wound No -Current Size (cm) - Length 1.4 -Current Size (cm) - Width 1.4 -Current Size (cm) - Depth 0.3 -Total Square Cm 1.96 -Photo Taken No -Epithelialization None Present -Tunneling No -Undermining/Tunneling No -Circular Undermining No -Exudate Amt Medium -Exudate Type Yellow/Green -Wound Margin Distinct, Outline Attached -Granulation Amt None Present (0 %) -Granulation Quality N/A -Slough/Fibrin No -Necrosis Amt Large (67-100%) -Necrotic Tissue Type Adherent Slough -Structure Exposed N/A -Texture (Gricelda-wound Skin Appearance) Assessed, Localized Edema -Moisture (Gricelda-wound Skin Appearance) Assessed, Maceration -Color (Gricelda-wound Skin Appearance) Assessed, Erythema -Temperature (Gricelda-wound Skin No Abnormality Appearance) (Pt Warm) -Tenderness on Palpation (Gricelda-wound Yes Skin Appearance) -Ulcer Cleansing Soap and Water -Foul Odor after Cleansing No -Anesthetic Used 5% Lidocaine Gel Lower Limb Edema Present Yes Left Calf (cm) 40.5 Left Ankle (cm) 27.5 WC - Nurse 2 - General Ulcer CM Notes Start: 01/09/23 09:08 Freq: Status: Active Protocol: Activity Type Activity Date Activity User E-sign Co-sign Detail Recorded Client Recorded Date Recorded By Document 01/09/23 09:22 MW [id number] 01/09/23 09:49 MW 01/09/23 09:22 Wound Center Nurse 2 3. L lateral ankle -Time 09:25 -Correct Patient Yes -Correct Side, Site, Position Yes -Correct Procedure Yes -Procedure Performed Yes -Type of Procedure Debridement -Clinical Debridement Subcutaneous -Tissue Removed Subcutaneous -Post Debridement (cm) - Length 1.5 -Post Debridement (cm) - Width 1.5 -Post Debridement (cm) - Depth 0.5 -Total Square (Post) (cm) 2.25 -Area of Debridement (cm) - Length 1.5 -Area of Debridement (cm) - Width 1.5 -Total Square (Area) (cm) 2.25 -Tunneling No -Undermining/Tunneling No -Circular Undermining No -Wound/Ulcer Outcome Not Healed -Ulcer Cleansing Rinsed/ Irrigated with Saline -Foul Odor after Cleansing No -Bioengineered Tissue No -Bleeding Controlled with Pressure -Treatment Response Procedure Tolerated Well -Offloading No -Debridement - Subq, 1st 20sq cm Yes Pain Scale: 0-10 Numeric Is Patient Pain Free? Yes - Nurse 3 - General Ulcer D/C NN Start: 01/09/23 09:08 Freq: Status: Active Protocol: Activity Type Activity Date Activity User E-sign Co-sign Detail Recorded Client Recorded Date Recorded By Document 01/09/23 09:58 MW [id number] 01/09/23 10:00 MW 01/09/23 09:58 Wound Care Center Nurse 3 3. L lateral ankle -Ulcer Cleansing Rinsed/ Irrigated with Saline -Foul Odor after Cleansing No -Negative Pressure Wound Therapy N/A -Primary Dressing Applied Aquacel Extra, Mepilex Border -Primary Dressing Covered/Secured with Dry Gauze -Aquacel Extra 1 -Mepilex Border 1 Treatment Response Procedure Tolerated Well Pain Scale: 0-10 Numeric Is Patient Pain Free? Yes Teaching: Wound Center Dressing Your Wound -Person Taught Patient,Family -Teaching Method Discussion, Demonstration -Response to teaching Verbalize understanding WC - Visit Discharge Discharge Condition Stable Ambulatory Status Ambulatory Transportation Private Auto Accompanied by Medication Reconcilliation completed & No provided to patient/care provider Clinical Summary of Care Provided Yes Assessment/Plan Assessment/Plan (1) Essential hypertension: CODE(S): I10 - Essential (primary) hypertension (2) Uncontrolled type 2 diabetes mellitus with hyperglycemia: CODE(S): E11.65 - Type 2 diabetes mellitus with hyperglycemia (3) Nonhealing nonsurgical wound: CODE(S): T14.8XXA - Other injury of unspecified body region, initial encounter (4) Atherosclerosis of coronary artery of [place] heart without angina pectoris: CODE(S): I25.10 - Atherosclerotic heart disease of [place] coronary artery without angina pectoris QUALIFIERS: Coronary Disease-Associated Artery/Lesion type: [place] artery Qualified Code(s): I25.10 - Atherosclerotic heart disease of [place] coronary artery without angina pectoris (5) Chronic ulcer of left ankle with fat layer exposed: CODE(S): L97.322 - Non-pressure chronic ulcer of left ankle with fat layer exposed (6) Diabetic ulcer of left ankle associated with type 2 diabetes mellitus, with fat layer exposed: CODE(S): E11.622 - Type 2 diabetes mellitus with other skin ulcer; L97.322 - Non-pressure chronic ulcer of left ankle with fat layer exposed (7) Diabetes: CODE(S): E11.9 - Type 2 diabetes mellitus without complications QUALIFIERS: Diabetes mellitus type: type 2 Diabetes mellitus detention 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 At home wound-care instructions: Wash ulcer with soap and water and pat dry with clean wash cloth. Will have him use Santyl applied nickel thick to ulcer and lightly moisten and cover with Aquacel Extra and foam dressing. Keep dressing clean and dry. Will have him use tubigrip compression to left leg to help with edema. CTA with runoff ordered, arterial studies ordered and will plan on referral to Dr. Gibson for vascular surgery as I am suspicious of arterial disease being present and causing delayed wound healing. Off-loading: The patient was instructed to avoid pressure and friction on the affected areas. Reposition every 2 hours at minimum. Avoid prolonged standing and/or dangling of legs. When seated, feet should be elevated at chest level. Frequent ambulation is encouraged. Diet: Patient encouraged to increase protein intake while taking caution to avoid high carbohydrate and/or sugar intake. Labs/cultures/imaging: Culture negative for infection 2 weeks ago. Sent for records of vascular studies but did not receive them. Patient pulled up on his phone and PANCHO left ankle in May 2022 was 1.07. New culture taken today. Follow-up: Return in 1 week for wound care follow up. Return sooner or report to the emergency room should symptoms worsen, or new symptoms arise. Note: [employer] speech recognition process controls technician software was used to create portions of this document. Sound-alike and misspelled words, as well as other process controls technician errors may be contained in the documentation.
--- NOTE | 2023-01-14 07:48 | ART_ITS ---
Reason For Study: LLE ULCER, PAD Procedure A bilateral lower extremity continuous wave Doppler with analog waveform analysis,segmental pressures,and ankle brachial indexes without exercise. Left Segmental Pressures Left brachial= 120mmHg. Left posterior tibial artery = 163mmHg. Left dorsalis pedis artery = 152mmHg. The left posterior tibial artery waveforms are triphasic. The left dorsalis pedis waveforms are triphasic. Right Segmental Pressures Right brachial= 120mmHg. Right posterior tibial artery = 163mmHg. Right dorsalis pedis artery = 149mmHg. The right posterior tibial artery waveforms are triphasic. The right dorsalis pedis waveforms are triphasic. Indices The right resting ankle brachial index is 1.36. The right ankle brachial index by the posterior tibial artery is 1.36. The right ankle brachial index by the dorsalis pedis is 1.24. The right digital-brachial index is 0.93. The left resting ankle brachial index is 1.36. The left ankle brachial index by the posterior tibial artery is 1.36. The left ankle brachial index by the dorsalis pedis is 1.27. The left digital-brachial index is 0.97. VL/Lower Ext Art Exam w/o Exercis Interpretation Summary Right PANCHO 1.36, normal. TBI and Doppler/PVR waveforms of the right leg normal a t rest. Left PANCHO 1.36, normal. TBI and Doppler/PVR waveforms of the left leg normal at rest. Ordering Physician: Soraya Briscoe Referring Physician: Swapnil Osullivan Performed By: Alice Renee RVT, RDCS
--- NOTE | 2023-01-14 07:48 | VDLE_ITS ---
Reason For Study: LLE ANKLE ULCER, PAD, R/O DVT RIGHT LEFT CFV is compressible, spontaneous, phasic, GSV is normal. competent and demonstrates normal CFV is compressible, spontaneous, phasic, augmentation. competent, and demonstrates normal Procedure augmentation. This is a venous duplex using B-mode, color FV is compressible, spontaneous, phasic, flow and spectral Doppler. competent and demonstrates normal Exam performed in department. augmentation. POP V is compressible, spontaneous, phasic, competent and demonstrates normal augmentation. T/P Trunk is compressible. PTV is compressible. LT PerV is compressible. VL/Venous Duplex US, Unilateral Interpretation Summary Deep veins of the left lower extremity are patent and compressible segmentally. There is no evidence of left lower extremity deep vein thrombosis. The left great saphenous vein neli ears patent and compressible segmentally. Ordering Physician: Soraya Briscoe Referring Physician: Swapnil Osullivan Performed By: lAice Renee, JOHN, RVT
[2023-01-16 08:40] VITALS: BP 138/72; PULSE 85; RESP 16; TEMP 36.1; BMI 33.1
--- NOTE | 2023-01-16 13:15 | PCM.WC.PN ---
History of Present Illness Date of Service: 01/16/23 Chief Complaint: non healing ulcer of left lateral malleolus/ankle History of Wound: Be is a 66-year-old white male with type 2 diabetes and a history of poor healing wounds that presents to the wound center today for evaluation and treatment of a nonhealing ulcer of his left lateral ankle/malleolus that started approximately 4 weeks ago. He thinks that his boot was rubbing the area and then noticed that there was drainage and was treating with a bandaid and antibiotic ointment with no improvement and increased drainage and erythema and swelling and then was seen by his PCP who started him on doxycyline and there was still no improvement so he gave him 1 dose of IM Rocephin and then started him on Cephalexin and Bactrim for which he has been taking almost 10 days of treatment and has 5 more days left of medication. He was then referred to the wound center for treatment. He has been covering the wound with gauze and antibiotic ointment but leaving it open to air when he is at home. He appears to have Charcot of the right foot and a collapsed right arch. He has had vascular testing by Dr. Flores his informatica mdm developer at the [facility] last year. His last A1C is unknown. He denies fever, chills, increased erythema or drainage and has been taking his antibiotics as instructed. Subjective Subjective Calvin returns for follow up of ulcer of lateral left ankle. Ulcer is unchanged but a little less erythema. He has been treating with Santyl and tolerating treatment. Wound culture was positive for anaerobic bacteria, Pseudomonas, Enterococcus and Klebsiella. He was started on Augmentin and Ciprofloxacin and started this treatment on Thursday. He has vascular testing done this week and venous insufficiency not identified. ABIs were WNL and not changed from previous. He has CTA with runoff scheduled for Thursday01/21/23. Denies fever, chills, increased drainage or pain. Objective Data Objective Data Vital Signs: Vital Signs Temp Pulse Resp BP O2 Del Method 97.0 F L 85 16 138/72 H Room Air 01/16/23 08:40 01/16/23 08:40 01/16/23 08:40 01/16/23 08:40 01/09/23 09:09 Oxygen Delivery Method Room Air Weight: 112.491 kg Body Mass Index (BMI) 33.1 Lab / Micro Data Micro: Microbiology 01/09/23 09:40 Wound Abcess - Ankle Gram Stain - Final 01/09/23 09:40 Wound Abcess - Ankle Wound Culture - Final Pseudomonas aeruginosa Enterococcus faecalis Klebsiella pneumoniae sp pneum 01/09/23 09:40 Wound Abcess - Ankle Anaerobic Culture - Final Anaerobic cocci Physical Exam Const alert, oriented x3 and no apparent distress General Appearance: cooperative and comfortable HEENT normocephalic and head/scalp atraumatic Resp normal respiratory effort Effort and Inspection: able to speak in complete sentences Cardio regular rate and regular rhythm Skin Wounds: wounds noted Wound Narrative: as in clinical panel Psych mental status grossly normal, thought process normal, cooperative and affect normal Debridement Note Debridement Note Wound debrided: left lateral ankle Laterality: Left Wound Grade/Stage: Soler grade 1 Type of Debridement: Excisional debridement Anesthesia Used: 4% Lidocaine Solution, 5% Lidocaine Gel and Cetacaine Depth: Down to and including healthy tissue and in the subcutaneous layer Percentage of wound debrided: 100 Instrument Used: #15 blade and Forceps Tissue Removed: Yellow slough, devitalized tissue Severity: Fat Layer Exposed Amount of bleeding with debridement: Mild Bleeding Controlled with: Compression and gauze Patient tolerated procedure: Patient tolerated procedure well Post-Debridement Measurements and Additional Note: Post-Debridement Measurements/Treatment - Nurse 1 - General Ulcer Assessment Start: 01/09/23 09:08 Freq: Status: Active Protocol: AIXA Activity Type Activity Date Activity User E-sign Co-sign Detail Recorded Client Recorded Date Recorded By Document 01/09/23 09:09 [id number] 01/09/23 09:18 Document 01/16/23 08:40 [id number] 01/16/23 08:42 01/09/23 01/16/23 09:09 08:40 - Today's Visit Information Type of service Follow-up Visit Follow-up Visit (Physician/LICENSED LOAN OFFICER ASSISTANT (Physician/LICENSED LOAN OFFICER ASSISTANT ) ) Arrival Mode Ambulatory Ambulatory Transfer Assistance None Accompanied by self Patient Identification Verified (Name & No Yes ) Patient Requires Transmission-Based No Precautions Safety Precautions NA Height and Weight Body Mass Index (BMI) 33.1 33.1 BMI Classification Obese Obese Vital Signs Temperature (97.8 F-99.1 F) 98.0 F 97.0 F L Temperature Source Temporal Temporal Pulse Rate (60-100) 87 85 Pulse Location Monitor Apical Respiratory Rate (12-18) 16 16 Respiratory rate source Observation Observation Oxygen Delivery Method Room Air Blood Pressure (90/60-120/80) 135/77 H 138/72 H Blood Pressure Mean (mm Hg) 96 94 Source Monitor Monitor Position Supine Semi-Fowlers Blood Pressure Location Left Arm Left Arm History Since Last Visit- (Skip if this is Patient's initial visit) Have you changed medications since your No Yes last visit? Any new allergies or adverse reactions No No Had a fall/change in ADL's that may No No increase risk of falls Signs or symptoms of abuse and/or No No neglect since last visit Have you been in the hospital since your No No last visit? Has dressing in place as prescribed Yes Yes Has compression in place as prescribed N/A Yes Has offloadiing in place as prescribed No N/A Experienced any changes in pain level or No No management Left Footwear Regular Shoe Regular Shoe Right Footwear Regular Shoe Regular Shoe Pain Scale: 0-10 Numeric Is Patient Pain Free? Yes Yes - Nurse 1 - General Ulcer Measurement Start: 01/09/23 09:08 Freq: Status: Active Protocol: Activity Type Activity Date Activity User E-sign Co-sign Detail Recorded Client Recorded Date Recorded By Document 01/09/23 09:09 [id number] 01/09/23 09:18 Document 01/16/23 08:40 [id number] 01/16/23 08:42 01/09/23 01/16/23 09:09 08:40 Wound Center Nurse 1 3. L lateral ankle -Combined with other wound No No -Current Size (cm) - Length 1.4 1.7 -Current Size (cm) - Width 1.4 1.7 -Current Size (cm) - Depth 0.3 0.5 -Total Square Cm 1.96 2.89 -Photo Taken No No -Epithelialization None Present None Present -Tunneling No No -Undermining/Tunneling No No -Circular Undermining No No -Exudate Amt Medium Medium -Exudate Type Yellow/Green Serosanguineous -Wound Margin Distinct, Flat & Intact Outline Attached -Granulation Amt None Present (0 None Present (0 %) %) -Granulation Quality N/A -Slough/Fibrin No Yes -Necrosis Amt Large (67-100%) -Necrotic Tissue Type Adherent Slough Adherent Slough -Structure Exposed N/A N/A -Texture (Gricelda-wound Skin Appearance) Assessed, Assessed, Localized Edema Localized Edema -Moisture (Gricelda-wound Skin Appearance) Assessed, Assessed,Dry/ Maceration Scaly -Color (Gricelda-wound Skin Appearance) Assessed, Assessed, Erythema Erythema -Temperature (Gricelda-wound Skin No Abnormality Appearance) (Pt Warm) -Tenderness on Palpation (Gricelda-wound Yes No Skin Appearance) -Ulcer Cleansing Soap and Water Wound Cleanser -Foul Odor after Cleansing No No -Anesthetic Used 5% Lidocaine 5% Lidocaine Gel Gel Lower Limb Edema Present Yes Yes Left Calf (cm) 40.5 40 Left Ankle (cm) 27.5 27.7 WC - Nurse 2 - General Ulcer CM Notes Start: 01/09/23 09:08 Freq: Status: Active Protocol: Activity Type Activity Date Activity User E-sign Co-sign Detail Recorded Client Recorded Date Recorded By Document 01/09/23 09:22 MW [id number] 01/09/23 09:49 MW Document 01/16/23 08:54 MW [id number] 01/16/23 09:14 MW 01/09/23 01/16/23 09:22 08:54 Wound Center Nurse 2 3. L lateral ankle -Time 09:25 08:54 -Correct Patient Yes Yes -Correct Side, Site, Position Yes Yes -Correct Procedure Yes Yes -Procedure Performed Yes Yes -Type of Procedure Debridement Debridement -Clinical Debridement Subcutaneous Subcutaneous -Tissue Removed Subcutaneous Subcutaneous -Post Debridement (cm) - Length 1.5 1.6 -Post Debridement (cm) - Width 1.5 1.7 -Post Debridement (cm) - Depth 0.5 0.5 -Total Square (Post) (cm) 2.25 2.72 -Area of Debridement (cm) - Length 1.5 1.6 -Area of Debridement (cm) - Width 1.5 1.7 -Total Square (Area) (cm) 2.25 2.72 -Tunneling No No -Undermining/Tunneling No No -Circular Undermining No No -Wound/Ulcer Outcome Not Healed Not Healed -Ulcer Cleansing Rinsed/ Rinsed/ Irrigated with Irrigated with Saline Saline -Foul Odor after Cleansing No No -Bioengineered Tissue No No -Bleeding Controlled with Pressure Pressure -Treatment Response Procedure Procedure Tolerated Well Tolerated Well -Offloading No No -Debridement - Subq, 1st 20sq cm Yes Yes Pain Scale: 0-10 Numeric Is Patient Pain Free? Yes Yes - Nurse 3 - General Ulcer D/C NN Start: 01/09/23 09:08 Freq: Status: Active Protocol: Activity Type Activity Date Activity User E-sign Co-sign Detail Recorded Client Recorded Date Recorded By Document 01/09/23 09:58 MW [id number] 01/09/23 10:00 MW Document 01/16/23 09:14 MW [id number] 01/16/23 09:15 MW 01/09/23 01/16/23 09:58 09:14 Wound Care Center Nurse 3 3. L lateral ankle -Ulcer Cleansing Rinsed/ Rinsed/ Irrigated with Irrigated with Saline Saline -Foul Odor after Cleansing No No -Negative Pressure Wound Therapy N/A N/A -Primary Dressing Applied Aquacel Extra, Aquacel Extra, Mepilex Border Mepilex Border -Primary Dressing Covered/Secured with Dry Gauze -Aquacel Extra 1 1 -Mepilex Border 1 1 Treatment Response Procedure Procedure Tolerated Well Tolerated Well Pain Scale: 0-10 Numeric Is Patient Pain Free? Yes Yes Teaching: Wound Center Dressing Your Wound -Person Taught Patient,Family Patient -Teaching Method Discussion, Discussion Demonstration -Response to teaching Verbalize Verbalize understanding understanding WC - Visit Discharge Discharge Condition Stable Stable Ambulatory Status Ambulatory Ambulatory Transportation Private Auto Private Auto Accompanied by self Medication Reconcilliation completed & No No provided to patient/care provider Clinical Summary of Care Provided Yes Yes Assessment/Plan Assessment/Plan (1) Essential hypertension: CODE(S): I10 - Essential (primary) hypertension (2) Uncontrolled type 2 diabetes mellitus with hyperglycemia: CODE(S): E11.65 - Type 2 diabetes mellitus with hyperglycemia (3) Nonhealing nonsurgical wound: CODE(S): T14.8XXA - Other injury of unspecified body region, initial encounter (4) Atherosclerosis of coronary artery of jackson heart without angina pectoris: CODE(S): I25.10 - Atherosclerotic heart disease of jackson coronary artery without angina pectoris QUALIFIERS: Coronary Disease-Associated Artery/Lesion type: jackson artery Qualified Code(s): I25.10 - Atherosclerotic heart disease of jackson coronary artery without angina pectoris (5) Chronic ulcer of left ankle with fat layer exposed: CODE(S): L97.322 - Non-pressure chronic ulcer of left ankle with fat layer exposed (6) Diabetic ulcer of left ankle associated with type 2 diabetes mellitus, with fat layer exposed: CODE(S): E11.622 - Type 2 diabetes mellitus with other skin ulcer; L97.322 - Non-pressure chronic ulcer of left ankle with fat layer exposed (7) Diabetes: CODE(S): E11.9 - Type 2 diabetes mellitus without complications QUALIFIERS: Diabetes mellitus type: type 2 Diabetes mellitus intermodal dispatcher insulin use: unspecified intermodal dispatcher insulin use status Diabetes mellitus complication status: with skin complications Diabetes mellitus complication detail: with other skin ulcer Qualified Code(s): E11.622 - Type 2 diabetes mellitus with other skin ulcer; L98.499 - Non-pressure chronic ulcer of skin of other sites with unspecified severity PLAN: Plan Debridement performed today in clinic as annotated above. At home wound-care instructions: Wash ulcer with soap and water and pat dry with clean wash cloth. Will have him continue to use Santyl applied nickel thick to ulcer and lightly moisten and cover with Aquacel Extra and foam dressing. Keep dressing clean and dry. Will have him use tubigrip compression to left leg to help with edema. CTA with runoff ordered and scheduled for 01/21/23 and sent referral to Dr. Gibson for vascular surgery as I am suspicious of arterial disease being present and causing delayed wound healing. Also, due to the depth and lack of progress of his ulcer, he would benefit from treatment with negative pressure therapy such as a snap vac to promote wound healing. Approval for treatment requested from his insurance. Off-loading: The patient was instructed to avoid pressure and friction on the affected areas. Reposition every 2 hours at minimum. Avoid prolonged standing and/or dangling of legs. When seated, feet should be elevated at chest level. Frequent ambulation is encouraged. Diet: Patient encouraged to increase protein intake while taking caution to avoid high carbohydrate and/or sugar intake. Labs/cultures/imaging: Patient pulled up on his phone and PANCHO left ankle in May 2022 was 1.07. Culture 01/09/23 positive for Pseudomonas, Klebsiella, Enterococcus and Anaerobic bacteria. Venous studies unremarkable. PANCHO left ankle 01/14 was 1.37 Follow-up: Return in 1 week for wound care follow up. Return sooner or report to the emergency room should symptoms worsen, or new symptoms arise. Note: [employer] speech recognition java software developer software was used to create portions of this document. Sound-alike and misspelled words, as well as other java software developer errors may be contained in the documentation.
--- NOTE | 2023-01-21 07:26 | CT_ITS ---
CT angiogram of the abdominal aorta with bilateral lower extremity runoff with 3-dimensional reconstructions, with MIP reconstructions Clinical history: LEFT LATERAL ANKLE ULCER-NON HEALING Technique: Multiple helical CT images were obtained from the domes the diaphragms to level of feet after intravenous administration of iodinated contrast with transaxial, coronal and sagittal multiplanar reconstructions. On a separate workstation, 3-dimensional reconstructions were obtained of the arterial vasculature using volume rendering technique and maximal intensity projection technique as per departmental protocol. This CT exam has been performed using low dose vendor recommended protocols to limit radiation exposure to As Low As Reasonably Achievable. RADIATION DOSAGE (If Supplied By Facility): CTDIvol = ( 8.87 ) mGy, DLP = ( 1518.89 ) mGycm COMPARISON: FINDINGS: ABDOMEN / PELVIS: The visualized lung bases are unremarkable. The visualized portions of the heart are within normal limits. The liver is 19 cm in height. The patent portal vein diameter is 17.5 mm. Normal gallbladder and extrahepatic biliary system. Normal spleen. Normal pancreas. Normal bilateral adrenal glands. Normal visualized stomach. Normal small intestine. Normal colon. There is non-visualization of the appendix. No retroperitoneal adenopathy. Normal right kidney. Normal left kidney. No hydronephrosis. Normal urinary bladder. Unremarkable prostate gland. Normal abdominal wall. There are multilevel degenerative changes of the thoracolumbar spine. Some edematous changes noted in the subcutaneous tissues at the left ankle and, to a lesser degree, in the medial left knee and both lower legs. VASCULAR STRUCTURES: There appears to be good opacification and patency of the visualized abdominal aorta. There appears to be good opacification and patency of the celiac trunk, superior mesenteric artery. There appears to be good opacification and patency noted of the RIGHT and LEFT renal arteries. Incidentally noted are 2 right renal arteries, an anatomic variant. There appears to be good opacification and patency noted of the inferior mesenteric artery. ARTERIAL STRUCTURES OF THE RIGHT LOWER EXTREMITY: Common iliac artery: Appears patent with good opacification. External iliac artery: Appears patent with good opacification. Internal iliac arteries: Appears patent with good opacification. Common femoral artery: Appears patent with good opacification. Superficial femoral arteries: Appear patent with good opacification. Popliteal artery: Appears patent with good opacification. Anterior tibial artery: There is atherosclerotic plaquing with long segment occlusion. No significant reconstitution of the dorsalis pedis Posterior tibial artery: Appears patent with good opacification. Peroneal artery: Appears patent with opacification. ARTERIAL STRUCTURES OF THE LEFT LOWER EXTREMITY: Common iliac artery: Appears patent with good opacification. External iliac artery: Appears patent with good opacification. Internal iliac arteries: Appears patent with good opacification. Common femoral artery: Appears patent with good opacification. Superficial femoral arteries: Appear patent with good opacification. Popliteal artery: Appears patent with good opacification. Anterior tibial artery: There is multifocal atherosclerotic calcific plaquing in the proximal and mid thirds of the vessels, resulting in multifocal moderate to moderately severe short segment stenoses. The distal vessel is patent, perfusing the patent dorsalis pedis.. Posterior tibial artery: Appears patent with good opacification. Peroneal artery: Appears patent with opacification. CT/CTA Abd w/Runoff W/WO Contrast IMPRESSION: 1. No aortic aneurysm. No significant inflow stenosis. 2. Widely patent bilateral superficial femoral and popliteal arteries. 3. Atherosclerotic disease involving the bilateral anterior tibial arteries. There is long segment occlusion on the right. Multifocal moderate to moderately severe short segment stenoses are seen on the left. 4. Patent bilateral posterior tibial and peroneal arteries. 5. Edematous changes noted at the left ankle and, to a lesser degree, in the medial left knee and both lower legs. 6. Multilevel degenerative changes of the thoracolumbar spine. Electronically Signed: Juan M Blackwood MD at 9:46 EDT Reading Location ID and State: [id number] / Unknown , Service support ,
[2023-01-21 08:05] LABS: CREATININE FINGERSTICK 1.2 mg/dL (0.70-1.30); EGFR FINGERSTICK > 60.0000 mL/min (>60)
[2023-01-21 08:45] VITALS: BP 142/78; PULSE 87; RESP 16; TEMP 36.1; BMI 33.1
[2023-01-23 08:53] VITALS: BP 150/90; PULSE 83; RESP 18; TEMP 36; BMI 33.1
--- NOTE | 2023-01-30 08:01 | PCM.WC.PN ---
History of Present Illness Date of Service: 01/23/23 Chief Complaint: non healing ulcer of left lateral malleolus/ankle History of Wound: Be is a 66-year-old white male with type 2 diabetes and a history of poor healing wounds that presents to the wound center today for evaluation and treatment of a nonhealing ulcer of his left lateral ankle/malleolus that started approximately 4 weeks ago. He thinks that his boot was rubbing the area and then noticed that there was drainage and was treating with a bandaid and antibiotic ointment with no improvement and increased drainage and erythema and swelling and then was seen by his PCP who started him on doxycyline and there was still no improvement so he gave him 1 dose of IM Rocephin and then started him on Cephalexin and Bactrim for which he has been taking almost 10 days of treatment and has 5 more days left of medication. He was then referred to the wound center for treatment. He has been covering the wound with gauze and antibiotic ointment but leaving it open to air when he is at home. He appears to have Charcot of the right foot and a collapsed right arch. 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 His last A1C is unknown. He denies fever, chills, increased erythema or drainage and has been taking his antibiotics as instructed. Subjective Subjective Calvin returns for follow up of ulcer of lateral left ankle. Ulcer is unchanged but a little less erythema. He has been treating with Santyl and tolerating treatment and started Snap vac on Thursday of this week. Wound culture 01/09/23 was positive for anaerobic bacteria, Pseudomonas, Enterococcus and Klebsiella. He was started on Augmentin and Ciprofloxacin and continues treatment. He had vascular testing and venous insufficiency not identified. ABIs were WNL and not changed from previous. He had CTA with runoff scheduled on 01/21/23 which showed some areas of stenosis in left leg but there was blood flow to dorsalis pedis artery. He is awaiting consultation with vascular surgery. Denies fever, chills, increased drainage or pain. Objective Data Objective Data Vital Signs: Vital Signs Temp Pulse Resp BP O2 Del Method 96.8 F L 83 18 150/90 H Room Air 01/23/23 08:53 01/23/23 08:53 01/23/23 08:53 01/23/23 08:53 01/09/23 09:09 Oxygen Delivery Method Room Air Weight: 112.491 kg Body Mass Index (BMI) 33.1 Lab / Micro Data Micro: Microbiology 01/09/23 09:40 Wound Abcess - Ankle Gram Stain - Final 01/09/23 09:40 Wound Abcess - Ankle Wound Culture - Final Pseudomonas aeruginosa Enterococcus faecalis Klebsiella pneumoniae sp pneum 01/09/23 09:40 Wound Abcess - Ankle Anaerobic Culture - Final Anaerobic cocci Physical Exam Const alert, oriented x3 and no apparent distress General Appearance: cooperative and comfortable HEENT normocephalic and head/scalp atraumatic Resp normal respiratory effort Effort and Inspection: able to speak in complete sentences Cardio regular rate and regular rhythm Skin Wounds: wounds noted Wound Narrative: as in clinical panel Psych mental status grossly normal, thought process normal, cooperative and affect normal Debridement Note Debridement Note Wound debrided: left lateral ankle Laterality: Left Wound Grade/Stage: Soler grade 1 Type of Debridement: Excisional debridement Anesthesia Used: 4% Lidocaine Solution, 5% Lidocaine Gel and Cetacaine Depth: Down to and including healthy tissue and in the subcutaneous layer Percentage of wound debrided: 100 Instrument Used: #15 blade and Forceps Tissue Removed: Yellow slough, devitalized tissue Severity: Fat Layer Exposed Amount of bleeding with debridement: Mild Bleeding Controlled with: Compression and gauze Patient tolerated procedure: Patient tolerated procedure well Post-Debridement Measurements and Additional Note: Post-Debridement Measurements/Treatment WC - Nurse 1 - General Ulcer Assessment Start: 01/09/23 09:08 Freq: Status: Active Protocol: AIXA Activity Type Activity Date Activity User E-sign Co-sign Detail Recorded Client Recorded Date Recorded By Document 01/09/23 09:09 [id number] 01/09/23 09:18 MW Document 01/16/23 08:40 [id number] 01/16/23 08:42 JF Document 01/21/23 08:45 PL [id number] 01/21/23 08:48 PL Document 01/23/23 08:53 RB [id number] 01/23/23 08:54 RB 01/09/23 01/16/23 01/21/23 09:09 08:40 08:45 - Today's Visit Information Type of service Follow-up Visit Follow-up Visit Nurse-only (Physician/FUN HOUSE OPERATOR (Physician/FUN HOUSE OPERATOR Visit ) ) Arrival Mode Ambulatory Ambulatory Ambulatory Transfer Assistance None None Accompanied by self Patient Identification Verified (Name & No Yes Yes ) Patient Requires Transmission-Based No No Precautions Safety Precautions NA NA Height and Weight Body Mass Index (BMI) 33.1 33.1 33.1 BMI Classification Obese Obese Obese Vital Signs Temperature (97.8 F-99.1 F) 98.0 F 97.0 F L 97.0 F L Temperature Source Temporal Temporal Temporal Pulse Rate (60-100) 87 85 87 Pulse Location Monitor Apical Respiratory Rate (12-18) 16 16 16 Respiratory rate source Observation Observation Oxygen Delivery Method Room Air Blood Pressure (90/60-120/80) 135/77 H 138/72 H 142/78 H Blood Pressure Mean (mm Hg) 96 94 99 Source Monitor Monitor Position Supine Semi-Fowlers Blood Pressure Location Left Arm Left Arm History Since Last Visit- (Skip if this is Patient's initial visit) Have you changed medications since your No Yes No last visit? Any new allergies or adverse reactions No No No Had a fall/change in ADL's that may No No No increase risk of falls Signs or symptoms of abuse and/or No No No neglect since last visit Have you been in the hospital since your No No No last visit? Has dressing in place as prescribed Yes Yes Yes Has compression in place as prescribed N/A Yes Yes Has offloadiing in place as prescribed No N/A N/A Experienced any changes in pain level or No No No management Left Footwear Regular Shoe Regular Shoe Right Footwear Regular Shoe Regular Shoe Pain Scale: 0-10 Numeric Is Patient Pain Free? Yes Yes Yes 01/23/23 08:53 WC - Today's Visit Information Type of service Follow-up Visit (Physician/FUN HOUSE OPERATOR ) Arrival Mode Ambulatory Transfer Assistance None Accompanied by Patient Identification Verified (Name & Yes ) Patient Requires Transmission-Based No Precautions Safety Precautions Height and Weight Body Mass Index (BMI) 33.1 BMI Classification Obese Vital Signs Temperature (97.8 F-99.1 F) 96.8 F L Temperature Source Temporal Pulse Rate (60-100) 83 Pulse Location Monitor Respiratory Rate (12-18) 18 Respiratory rate source Observation Oxygen Delivery Method Blood Pressure (90/60-120/80) 150/90 H Blood Pressure Mean (mm Hg) 110 Source Monitor Position Semi-Fowlers Blood Pressure Location Left Arm History Since Last Visit- (Skip if this is Patient's initial visit) Have you changed medications since your No last visit? Any new allergies or adverse reactions No Had a fall/change in ADL's that may No increase risk of falls Signs or symptoms of abuse and/or No neglect since last visit Have you been in the hospital since your No last visit? Has dressing in place as prescribed Yes Has compression in place as prescribed Yes Has offloadiing in place as prescribed No Experienced any changes in pain level or No management Left Footwear Right Footwear Pain Scale: 0-10 Numeric Is Patient Pain Free? Yes WC - Nurse 1 - General Ulcer Measurement Start: 01/09/23 09:08 Freq: Status: Active Protocol: Activity Type Activity Date Activity User E-sign Co-sign Detail Recorded Client Recorded Date Recorded By Document 01/09/23 09:09 MW [id number] 01/09/23 09:18 MW Document 01/16/23 08:40 [id number] 01/16/23 08:42 Document 01/23/23 08:53 RB [id number] 01/23/23 08:54 RB 01/09/23 01/16/23 01/23/23 09:09 08:40 08:53 Wound Center Nurse 1 3. L lateral ankle -Combined with other wound No No No -Current Size (cm) - Length 1.4 1.7 1.6 -Current Size (cm) - Width 1.4 1.7 1.5 -Current Size (cm) - Depth 0.3 0.5 0.5 -Total Square Cm 1.96 2.89 2.40 -Photo Taken No No -Epithelialization None Present None Present -Tunneling No No No -Undermining/Tunneling No No No -Circular Undermining No No No -Exudate Amt Medium Medium Large -Exudate Type Yellow/Green Serosanguineous Serosanguineous -Wound Margin Distinct, Flat & Intact Thickened & Outline Rolled Under Attached -Granulation Amt None Present (0 None Present (0 Small (1-33%) %) %) -Granulation Quality N/A [place] -Slough/Fibrin No Yes Yes -Necrosis Amt Large (67-100%) Large (67-100%) -Necrotic Tissue Type Adherent Slough Adherent Slough Adherent Slough -Structure Exposed N/A N/A N/A -Texture ([place]-wound Skin Appearance) Assessed, Assessed, Assessed Localized Edema Localized Edema -Moisture ([place]da-wound Skin Appearance) Assessed, Assessed,Dry/ Assessed Maceration Scaly -Color ([place]da-wound Skin Appearance) Assessed, Assessed, Assessed, Erythema Erythema Erythema -Temperature ([place]-wound Skin No Abnormality No Abnormality Appearance) (Pt Warm) (Pt Warm) -Tenderness on Palpation ([place]da-wound Yes No No Skin Appearance) -Ulcer Cleansing Soap and Water Wound Cleanser Wound Cleanser -Foul Odor after Cleansing No No No -Anesthetic Used 5% Lidocaine 5% Lidocaine 5% Lidocaine Gel Gel Gel Lower Limb Edema Present Yes Yes Yes Left Calf (cm) 40.5 40 39.5 Left Ankle (cm) 27.5 27.7 28.3 WC - Nurse 2 - General Ulcer CM Notes Start: 01/09/23 09:08 Freq: Status: Active Protocol: Activity Type Activity Date Activity User E-sign Co-sign Detail Recorded Client Recorded Date Recorded By Document 01/09/23 09:22 MW [id number] 01/09/23 09:49 MW Document 01/16/23 08:54 MW [id number] 01/16/23 09:14 MW Document 01/23/23 08:53 MW [id number] 01/23/23 09:15 MW 01/09/23 01/16/23 01/23/23 09:22 08:54 08:53 Wound Center Nurse 2 3. L lateral ankle -Time 09:25 08:54 08:53 -Correct Patient Yes Yes Yes -Correct Side, Site, Position Yes Yes Yes -Correct Procedure Yes Yes Yes -Procedure Performed Yes Yes Yes -Type of Procedure Debridement Debridement Debridement -Clinical Debridement Subcutaneous Subcutaneous Subcutaneous -Tissue Removed Subcutaneous Subcutaneous Subcutaneous -Post Debridement (cm) - Length 1.5 1.6 1.7 -Post Debridement (cm) - Width 1.5 1.7 1.5 -Post Debridement (cm) - Depth 0.5 0.5 0.5 -Total Square (Post) (cm) 2.25 2.72 2.55 -Area of Debridement (cm) - Length 1.5 1.6 1.7 -Area of Debridement (cm) - Width 1.5 1.7 1.5 -Total Square (Area) (cm) 2.25 2.72 2.55 -Tunneling No No No -Undermining/Tunneling No No No -Circular Undermining No No No -Wound/Ulcer Outcome Not Healed Not Healed Not Healed -Ulcer Cleansing Rinsed/ Rinsed/ Rinsed/ Irrigated with Irrigated with Irrigated with Saline Saline Saline -Foul Odor after Cleansing No No No -Bioengineered Tissue No No No -Bleeding Controlled with Pressure Pressure Pressure -Treatment Response Procedure Procedure Procedure Tolerated Well Tolerated Well Tolerated Well -Offloading No No No -Debridement - Subq, 1st 20sq cm Yes Yes Yes Pain Scale: 0-10 Numeric Is Patient Pain Free? Yes Yes Yes - Nurse 3 - General Ulcer D/C NN Start: 01/09/23 09:08 Freq: Status: Active Protocol: Activity Type Activity Date Activity User E-sign Co-sign Detail Recorded Client Recorded Date Recorded By Document 01/09/23 09:58 MW [id number] 01/09/23 10:00 MW Document 01/16/23 09:14 MW [id number] 01/16/23 09:15 MW Document 01/21/23 08:45 PL [id number] 01/21/23 08:48 PL Document 01/23/23 09:22 DL [id number] 01/23/23 09:33 DL Document 01/27/23 13:27 PL [id number] 01/27/23 13:29 PL 01/09/23 01/16/23 01/21/23 09:58 09:14 08:45 Wound Care Center Nurse 3 3. L lateral ankle -Ulcer Cleansing Rinsed/ Rinsed/ Rinsed/ Irrigated with Irrigated with Irrigated with Saline Saline Saline -Foul Odor after Cleansing No No No -Negative Pressure Wound Therapy N/A N/A Start -Setting (mmHg) 125 -Negative Pressure is Continuous -Primary Dressing Applied Aquacel Extra, Aquacel Extra, Mepilex Border Mepilex Border -Primary Dressing Covered/Secured with Dry Gauze -NPWT Application Charge NPWT </= 50 sq cm (disp) ($) -Aquacel Extra 1 1 -Mepilex Border 1 1 Left -Tubular Bandage Single Layer -Size of Tubigrip Used Size C -Size C ($) 1 Treatment Response Procedure Procedure Tolerated Well Tolerated Well Vital Signs Temperature (97.8 F-99.1 F) 97.0 F L Temperature Source Temporal Pulse Rate (60-100) 87 Respiratory Rate (12-18) 16 Blood Pressure (90/60-120/80) 142/78 H Blood Pressure Mean (mm Hg) 99 Pain Scale: 0-10 Numeric Is Patient Pain Free? Yes Yes Yes Teaching: Wound Center Dressing Your Wound -Person Taught Patient,Family Patient -Teaching Method Discussion, Discussion Demonstration -Response to teaching Verbalize Verbalize understanding understanding WC - Visit Discharge Discharge Condition Stable Stable Stable Ambulatory Status Ambulatory Ambulatory Ambulatory Transportation Private Auto Private Auto Private Auto Accompanied by self Medication Reconcilliation completed & No No provided to patient/care provider Clinical Summary of Care Provided Yes Yes 01/23/23 01/27/23 09:22 13:27 Wound Care Center Nurse 3 3. L lateral ankle -Ulcer Cleansing Rinsed/ Soap and Water Irrigated with Saline -Foul Odor after Cleansing No No -Negative Pressure Wound Therapy Continue Continue -Setting (mmHg) 125 125 -Negative Pressure is Continuous Continuous -Primary Dressing Applied -Primary Dressing Covered/Secured with -NPWT Application Charge NPWT & NPWT </= 50 sq Debridement (nc cm (disp) ($) ) -Aquacel Extra -Mepilex Border Left -Tubular Bandage -Size of Tubigrip Used -Size C ($) Treatment Response Procedure Tolerated Well Vital Signs Temperature (97.8 F-99.1 F) Temperature Source Pulse Rate (60-100) Respiratory Rate (12-18) Blood Pressure (90/60-120/80) Blood Pressure Mean (mm Hg) Pain Scale: 0-10 Numeric Is Patient Pain Free? Yes Yes Teaching: Wound Center Dressing Your Wound -Person Taught -Teaching Method -Response to teaching WC - Visit Discharge Discharge Condition Stable Stable Ambulatory Status Ambulatory Ambulatory Transportation Private Auto Private Auto Accompanied by Medication Reconcilliation completed & provided to patient/care provider Clinical Summary of Care Provided Assessment/Plan Assessment/Plan (1) Essential hypertension: CODE(S): I10 - Essential (primary) hypertension (2) Uncontrolled type 2 diabetes mellitus with hyperglycemia: CODE(S): E11.65 - Type 2 diabetes mellitus with hyperglycemia (3) Nonhealing nonsurgical wound: CODE(S): T14.8XXA - Other injury of unspecified body region, initial encounter (4) Atherosclerosis of coronary artery of [place] heart without angina pectoris: CODE(S): I25.10 - Atherosclerotic heart disease of [place] coronary artery without angina pectoris QUALIFIERS: Coronary Disease-Associated Artery/Lesion type: [place] artery Qualified Code(s): I25.10 - Atherosclerotic heart disease of [place] coronary artery without angina pectoris (5) Chronic ulcer of left ankle with fat layer exposed: CODE(S): L97.322 - Non-pressure chronic ulcer of left ankle with fat layer exposed (6) Diabetic ulcer of left ankle associated with type 2 diabetes mellitus, with fat layer exposed: CODE(S): E11.622 - Type 2 diabetes mellitus with other skin ulcer; L97.322 - Non-pressure chronic ulcer of left ankle with fat layer exposed (7) Diabetes: CODE(S): E11.9 - Type 2 diabetes mellitus without complications QUALIFIERS: Diabetes mellitus type: type 2 Diabetes mellitus detention insulin use: unspecified terminal 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 At home wound-care instructions: Will continue Snap vac. Will continue to use Santyl applied nickel thick to ulcer and lightly moisten before applying wound vac. Keep dressing clean and dry. Will have him use tubigrip compression to left leg to help with edema. Sent referral to Dr. Gibson for vascular surgery as I am suspicious of arterial disease being present and causing delayed wound healing. Also, due to the depth and lack of progress of his ulcer, he would benefit from treatment with negative pressure therapy such as a snap vac to promote wound healing. Approval received treatment requested from his insurance. Off-loading: The patient was instructed to avoid pressure and friction on the affected areas. Reposition every 2 hours at minimum. Avoid prolonged standing and/or dangling of legs. When seated, feet should be elevated at chest level. Frequent ambulation is encouraged. Diet: Patient encouraged to increase protein intake while taking caution to avoid high carbohydrate and/or sugar intake. Labs/cultures/imaging: Patient pulled up on his phone and PANCHO left ankle in May 2022 was 1.07. Culture 01/09/23 positive for Pseudomonas, Klebsiella, Enterococcus and Anaerobic bacteria. Venous studies unremarkable. PANCHO left ankle 01/14 was 1.37 CTA with run-off done at 01/21/23 and there is some stenosis but blood flow to dorsalis pedis is present. Follow-up: Return in 1 week for wound care follow up. Return sooner or report to the emergency room should symptoms worsen, or new symptoms arise. Note: [employer] speech recognition meter maker software was used to create portions of this document. Sound-alike and misspelled words, as well as other meter maker errors may be contained in the documentation.
[2023-01-30 08:42] VITALS: BP 145/89; PULSE 85; RESP 18; TEMP 36.1; BMI 33.1
--- NOTE | 2023-01-30 13:02 | PCM.WC.PN ---
History of Present Illness Date of Service: 01/30/23 Chief Complaint: non healing ulcer of left lateral malleolus/ankle History of Wound: Be is a 66-year-old white male with type 2 diabetes and a history of poor healing wounds that presents to the wound center today for evaluation and treatment of a nonhealing ulcer of his left lateral ankle/malleolus that started approximately 4 weeks ago. He thinks that his boot was rubbing the area and then noticed that there was drainage and was treating with a bandaid and antibiotic ointment with no improvement and increased drainage and erythema and swelling and then was seen by his PCP who started him on doxycyline and there was still no improvement so he gave him 1 dose of IM Rocephin and then started him on Cephalexin and Bactrim for which he has been taking almost 10 days of treatment and has 5 more days left of medication. He was then referred to the wound center for treatment. He has been covering the wound with gauze and antibiotic ointment but leaving it open to air when he is at home. He appears to have Charcot of the right foot and a collapsed right arch. He has had vascular testing by Dr. 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 His last A1C is unknown. He denies fever, chills, increased erythema or drainage and has been taking his antibiotics as instructed. Subjective Subjective Calvin returns for follow up of ulcer of lateral left ankle. Ulcer is unchanged but a little less erythema. He is having increased pain. He has been tolerating treatment with Santyl and Snap vac. Wound culture 01/09/23 was positive for anaerobic bacteria, Pseudomonas, Enterococcus and Klebsiella. He was started on Augmentin and Ciprofloxacin and completed treatment. He had vascular testing and venous insufficiency not identified. ABIs were WNL and not changed from previous. He had CTA with runoff scheduled on 01/21/23 which showed some areas of stenosis in left leg but there was blood flow to dorsalis pedis artery. He is awaiting consultation with vascular surgery which is scheduled for 02/02/23. Denies fever, chills, increased drainage or pain. Objective Data Objective Data Vital Signs: Vital Signs Temp Pulse Resp BP O2 Del Method 97 F L 85 18 145/89 H Room Air 01/30/23 08:42 01/30/23 08:42 01/30/23 08:42 01/30/23 08:42 01/09/23 09:09 Oxygen Delivery Method Room Air Weight: 112.491 kg Body Mass Index (BMI) 33.1 Lab / Micro Data Micro: Microbiology 01/09/23 09:40 Wound Abcess - Ankle Gram Stain - Final 01/09/23 09:40 Wound Abcess - Ankle Wound Culture - Final Pseudomonas aeruginosa Enterococcus faecalis Klebsiella pneumoniae sp pneum 01/09/23 09:40 Wound Abcess - Ankle Anaerobic Culture - Final Anaerobic cocci Physical Exam Const alert, oriented x3 and no apparent distress General Appearance: cooperative and comfortable HEENT normocephalic and head/scalp atraumatic Resp normal respiratory effort Effort and Inspection: able to speak in complete sentences Cardio regular rate and regular rhythm Skin Wounds: wounds noted Wound Narrative: as in clinical panel Psych mental status grossly normal, thought process normal, cooperative and affect normal Debridement Note Debridement Note Wound debrided: left lateral ankle Laterality: Left Wound Grade/Stage: Osler grade 2 Type of Debridement: Excisional debridement Anesthesia Used: 4% Lidocaine Solution, 5% Lidocaine Gel and Cetacaine Depth: Down to and including healthy tissue and in the subcutaneous layer Percentage of wound debrided: 100 Instrument Used: #15 blade and Forceps Tissue Removed: Yellow slough, devitalized tissue Severity: Fat Layer Exposed Amount of bleeding with debridement: Mild Bleeding Controlled with: Compression and gauze Patient tolerated procedure: Patient tolerated procedure well Post-Debridement Measurements and Additional Note: Post-Debridement Measurements/Treatment WC - Nurse 1 - General Ulcer Assessment Start: 01/09/23 09:08 Freq: Status: Active Protocol: AIXA Activity Type Activity Date Activity User E-sign Co-sign Detail Recorded Client Recorded Date Recorded By Document 01/09/23 09:09 [id number] 01/09/23 09:18 MW Document 01/16/23 08:40 JF [id number] 01/16/23 08:42 JF Document 01/21/23 08:45 PL [id number] 01/21/23 08:48 PL Document 01/23/23 08:53 RB [id number] 01/23/23 08:54 RB Document 01/30/23 08:42 RB [id number] 01/30/23 08:44 RB 01/09/23 01/16/23 01/21/23 09:09 08:40 08:45 WC - Today's Visit Information Type of service Follow-up Visit Follow-up Visit Nurse-only (Physician/TERMINAL GAUGER (Physician/TERMINAL GAUGER Visit ) ) Arrival Mode Ambulatory Ambulatory Ambulatory Transfer Assistance None None Accompanied by self Patient Identification Verified (Name & No Yes Yes ) Patient Requires Transmission-Based No No Precautions Safety Precautions NA NA Height and Weight Body Mass Index (BMI) 33.1 33.1 33.1 BMI Classification Obese Obese Obese Vital Signs Temperature (97.8 F-99.1 F) 98.0 F 97.0 F L 97.0 F L Temperature Source Temporal Temporal Temporal Pulse Rate (60-100) 87 85 87 Pulse Location Monitor Apical Respiratory Rate (12-18) 16 16 16 Respiratory rate source Observation Observation Oxygen Delivery Method Room Air Blood Pressure (90/60-120/80) 135/77 H 138/72 H 142/78 H Blood Pressure Mean (mm Hg) 96 94 99 Source Monitor Monitor Position Supine Semi-Fowlers Blood Pressure Location Left Arm Left Arm History Since Last Visit- (Skip if this is Patient's initial visit) Have you changed medications since your No Yes No last visit? Any new allergies or adverse reactions No No No Had a fall/change in ADL's that may No No No increase risk of falls Signs or symptoms of abuse and/or No No No neglect since last visit Have you been in the hospital since your No No No last visit? Has dressing in place as prescribed Yes Yes Yes Has compression in place as prescribed N/A Yes Yes Has offloadiing in place as prescribed No N/A N/A Experienced any changes in pain level or No No No management Left Footwear Regular Shoe Regular Shoe Right Footwear Regular Shoe Regular Shoe Pain Scale: 0-10 Numeric Is Patient Pain Free? Yes Yes Yes 01/23/23 01/30/23 08:53 08:42 WC - Today's Visit Information Type of service Follow-up Visit Follow-up Visit (Physician/TERMINAL GAUGER (Physician/TERMINAL GAUGER ) ) Arrival Mode Ambulatory Ambulatory Transfer Assistance None None Accompanied by Patient Identification Verified (Name & Yes Yes ) Patient Requires Transmission-Based No No Precautions Safety Precautions Height and Weight Body Mass Index (BMI) 33.1 33.1 BMI Classification Obese Obese Vital Signs Temperature (97.8 F-99.1 F) 96.8 F L 97 F L Temperature Source Temporal Temporal Pulse Rate (60-100) 83 85 Pulse Location Monitor Monitor Respiratory Rate (12-18) 18 18 Respiratory rate source Observation Observation Oxygen Delivery Method Blood Pressure (90/60-120/80) 150/90 H 145/89 H Blood Pressure Mean (mm Hg) 110 107 Source Monitor Monitor Position Semi-Fowlers Sitting Blood Pressure Location Left Arm Left Arm History Since Last Visit- (Skip if this is Patient's initial visit) Have you changed medications since your No No last visit? Any new allergies or adverse reactions No No Had a fall/change in ADL's that may No No increase risk of falls Signs or symptoms of abuse and/or No No neglect since last visit Have you been in the hospital since your No No last visit? Has dressing in place as prescribed Yes Yes Has compression in place as prescribed Yes No Has offloadiing in place as prescribed No No Experienced any changes in pain level or No No management Left Footwear Right Footwear Pain Scale: 0-10 Numeric Is Patient Pain Free? Yes Yes - Nurse 1 - General Ulcer Measurement Start: 01/09/23 09:08 Freq: Status: Active Protocol: Activity Type Activity Date Activity User E-sign Co-sign Detail Recorded Client Recorded Date Recorded By Document 01/09/23 09:09 [id number] 01/09/23 09:18 Document 01/16/23 08:40 [id number] 01/16/23 08:42 JF Document 01/23/23 08:53 RB [id number] 01/23/23 08:54 RB Document 01/30/23 08:42 RB [id number] 01/30/23 08:44 RB 01/09/23 01/16/23 01/23/23 09:09 08:40 08:53 Wound Center Nurse 1 3. L lateral ankle -Combined with other wound No No No -Current Size (cm) - Length 1.4 1.7 1.6 -Current Size (cm) - Width 1.4 1.7 1.5 -Current Size (cm) - Depth 0.3 0.5 0.5 -Total Square Cm 1.96 2.89 2.40 -Photo Taken No No -Epithelialization None Present None Present -Tunneling No No No -Undermining/Tunneling No No No -Circular Undermining No No No -Exudate Amt Medium Medium Large -Exudate Type Yellow/Green Serosanguineous Serosanguineous -Wound Margin Distinct, Flat & Intact Thickened & Outline Rolled Under Attached -Granulation Amt None Present (0 None Present (0 Small (1-33%) %) %) -Granulation Quality N/A [place] -Slough/Fibrin No Yes Yes -Necrosis Amt Large (67-100%) Large (67-100%) -Necrotic Tissue Type Adherent Slough Adherent Slough Adherent Slough -Structure Exposed N/A N/A N/A -Texture ([place]-wound Skin Appearance) Assessed, Assessed, Assessed Localized Edema Localized Edema -Moisture ([place]-wound Skin Appearance) Assessed, Assessed,Dry/ Assessed Maceration Scaly -Color ([place]-wound Skin Appearance) Assessed, Assessed, Assessed, Erythema Erythema Erythema -Temperature ([place]-wound Skin No Abnormality No Abnormality Appearance) (Pt Warm) (Pt Warm) -Tenderness on Palpation ([place]-wound Yes No No Skin Appearance) -Ulcer Cleansing Soap and Water Wound Cleanser Wound Cleanser -Foul Odor after Cleansing No No No -Anesthetic Used 5% Lidocaine 5% Lidocaine 5% Lidocaine Gel Gel Gel Lower Limb Edema Present Yes Yes Yes Left Calf (cm) 40.5 40 39.5 Left Ankle (cm) 27.5 27.7 28.3 01/30/23 08:42 Wound Center Nurse 1 3. L lateral ankle -Combined with other wound No -Current Size (cm) - Length 0.1 -Current Size (cm) - Width 0.1 -Current Size (cm) - Depth 0.1 -Total Square Cm 0.01 -Photo Taken -Epithelialization -Tunneling No -Undermining/Tunneling No -Circular Undermining No -Exudate Amt Medium -Exudate Type Serosanguineous -Wound Margin Thickened & Rolled Under -Granulation Amt Medium (34-66%) -Granulation Quality [place] -Slough/Fibrin Yes -Necrosis Amt Medium (34-66%) -Necrotic Tissue Type Adherent Slough -Structure Exposed N/A -Texture ([place]-wound Skin Appearance) Assessed -Moisture ([place]-wound Skin Appearance) Assessed -Color ([place]-wound Skin Appearance) Assessed, Erythema -Temperature ([place]-wound Skin No Abnormality Appearance) (Pt Warm) -Tenderness on Palpation ([place]-wound No Skin Appearance) -Ulcer Cleansing Wound Cleanser -Foul Odor after Cleansing No -Anesthetic Used 5% Lidocaine Gel Lower Limb Edema Present Left Calf (cm) Left Ankle (cm) WC - Nurse 2 - General Ulcer CM Notes Start: 01/09/23 09:08 Freq: Status: Active Protocol: Activity Type Activity Date Activity User E-sign Co-sign Detail Recorded Client Recorded Date Recorded By Document 01/09/23 09:22 MW [id number] 01/09/23 09:49 MW Document 01/16/23 08:54 MW [id number] 01/16/23 09:14 MW Document 01/23/23 08:53 MW [id number] 01/23/23 09:15 MW Document 01/30/23 09:10 MW [id number] 01/30/23 09:27 MW 01/09/23 01/16/23 01/23/23 09:22 08:54 08:53 Wound Center Nurse 2 3. L lateral ankle -Time 09:25 08:54 08:53 -Correct Patient Yes Yes Yes -Correct Side, Site, Position Yes Yes Yes -Correct Procedure Yes Yes Yes -Procedure Performed Yes Yes Yes -Type of Procedure Debridement Debridement Debridement -Clinical Debridement Subcutaneous Subcutaneous Subcutaneous -Tissue Removed Subcutaneous Subcutaneous Subcutaneous -Post Debridement (cm) - Length 1.5 1.6 1.7 -Post Debridement (cm) - Width 1.5 1.7 1.5 -Post Debridement (cm) - Depth 0.5 0.5 0.5 -Total Square (Post) (cm) 2.25 2.72 2.55 -Area of Debridement (cm) - Length 1.5 1.6 1.7 -Area of Debridement (cm) - Width 1.5 1.7 1.5 -Total Square (Area) (cm) 2.25 2.72 2.55 -Tunneling No No No -Undermining/Tunneling No No No -Undermining/Tunneling Starts (O'clock ) -Undermining/Tunneling Ends (O'clock) -Maximum Distance (cm) -Circular Undermining No No No -Wound/Ulcer Outcome Not Healed Not Healed Not Healed -Ulcer Cleansing Rinsed/ Rinsed/ Rinsed/ Irrigated with Irrigated with Irrigated with Saline Saline Saline -Foul Odor after Cleansing No No No -Bioengineered Tissue No No No -Bleeding Controlled with Pressure Pressure Pressure -Treatment Response Procedure Procedure Procedure Tolerated Well Tolerated Well Tolerated Well -Offloading No No No -Debridement - Subq, 1st 20sq cm Yes Yes Yes Pain Scale: 0-10 Numeric Is Patient Pain Free? Yes Yes Yes 01/30/23 09:10 Wound Center Nurse 2 3. L lateral ankle -Time 09:10 -Correct Patient Yes -Correct Side, Site, Position Yes -Correct Procedure Yes -Procedure Performed Yes -Type of Procedure Debridement -Clinical Debridement Subcutaneous -Tissue Removed Subcutaneous -Post Debridement (cm) - Length 1.6 -Post Debridement (cm) - Width 1.7 -Post Debridement (cm) - Depth 0.4 -Total Square (Post) (cm) 2.72 -Area of Debridement (cm) - Length 1.6 -Area of Debridement (cm) - Width 1.7 -Total Square (Area) (cm) 2.72 -Tunneling No -Undermining/Tunneling Yes -Undermining/Tunneling Starts (O'clock 12 ) -Undermining/Tunneling Ends (O'clock) 3 -Maximum Distance (cm) 0.3 -Circular Undermining No -Wound/Ulcer Outcome Not Healed -Ulcer Cleansing Rinsed/ Irrigated with Saline -Foul Odor after Cleansing No -Bioengineered Tissue No -Bleeding Controlled with Pressure -Treatment Response Procedure Tolerated Well -Offloading No -Debridement - Subq, 1st 20sq cm Yes Pain Scale: 0-10 Numeric Is Patient Pain Free? Yes WC - Nurse 3 - General Ulcer D/C NN Start: 01/09/23 09:08 Freq: Status: Active Protocol: Activity Type Activity Date Activity User E-sign Co-sign Detail Recorded Client Recorded Date Recorded By Document 01/09/23 09:58 MW [id number] 01/09/23 10:00 MW Document 01/16/23 09:14 MW [id number] 01/16/23 09:15 MW Document 01/21/23 08:45 PL [id number] 01/21/23 08:48 PL Document 01/23/23 09:22 DL [id number] 01/23/23 09:33 DL Document 07/25/23 13:27 PL [id number] 01/27/23 13:29 PL Document 01/30/23 09:27 MW [id number] 01/30/23 09:40 MW 01/09/23 01/16/23 01/21/23 09:58 09:14 08:45 Wound Care Center Nurse 3 3. L lateral ankle -Ulcer Cleansing Rinsed/ Rinsed/ Rinsed/ Irrigated with Irrigated with Irrigated with Saline Saline Saline -Foul Odor after Cleansing No No No -Negative Pressure Wound Therapy N/A N/A Start -Setting (mmHg) 125 -Negative Pressure is Continuous -Primary Dressing Applied Aquacel Extra, Aquacel Extra, Mepilex Border Mepilex Border -Other Dressing -Primary Dressing Covered/Secured with Dry Gauze -NPWT Application Charge NPWT </= 50 sq cm (disp) ($) -Aquacel Extra 1 1 -Mepilex Border 1 1 Left -Lotion applied to leg before compression wrap -Tubular Bandage Single Layer -Size of Tubigrip Used Size C -Size C ($) 1 -Size D ($) Treatment Response Procedure Procedure Tolerated Well Tolerated Well Vital Signs Temperature (97.8 F-99.1 F) 97.0 F L Temperature Source Temporal Pulse Rate (60-100) 87 Respiratory Rate (12-18) 16 Blood Pressure (90/60-120/80) 142/78 H Blood Pressure Mean (mm Hg) 99 Pain Scale: 0-10 Numeric Is Patient Pain Free? Yes Yes Yes Teaching: Wound Center Dressing Your Wound -Person Taught Patient,Family Patient -Teaching Method Discussion, Discussion Demonstration -Response to teaching Verbalize Verbalize understanding understanding WC - Visit Discharge Discharge Condition Stable Stable Stable Ambulatory Status Ambulatory Ambulatory Ambulatory Transportation Private Auto Private Auto Private Auto Accompanied by self Medication Reconcilliation completed & No No provided to patient/care provider Clinical Summary of Care Provided Yes Yes 01/23/23 01/27/23 01/30/23 09:22 13:27 09:27 Wound Care Center Nurse 3 3. L lateral ankle -Ulcer Cleansing Rinsed/ Soap and Water Rinsed/ Irrigated with Irrigated with Saline Saline -Foul Odor after Cleansing No No No -Negative Pressure Wound Therapy Continue Continue N/A -Setting (mmHg) 125 125 -Negative Pressure is Continuous Continuous -Primary Dressing Applied Mepilex Border -Other Dressing santyl, aquacel extra -Primary Dressing Covered/Secured with -NPWT Application Charge NPWT & NPWT </= 50 sq Debridement (nc cm (disp) ($) ) -Aquacel Extra -Mepilex Border 1 Left -Lotion applied to leg before Yes compression wrap -Tubular Bandage Single Layer -Size of Tubigrip Used Size D -Size C ($) -Size D ($) 1 Treatment Response Procedure Procedure Tolerated Well Tolerated Well Vital Signs Temperature (97.8 F-99.1 F) Temperature Source Pulse Rate (60-100) Respiratory Rate (12-18) Blood Pressure (90/60-120/80) Blood Pressure Mean (mm Hg) Pain Scale: 0-10 Numeric Is Patient Pain Free? Yes Yes Yes Teaching: Wound Center Dressing Your Wound -Person Taught Patient -Teaching Method Discussion, Demonstration -Response to teaching Verbalize understanding WC - Visit Discharge Discharge Condition Stable Stable Stable Ambulatory Status Ambulatory Ambulatory Ambulatory Transportation Private Auto Private Auto Private Auto Accompanied by self Medication Reconcilliation completed & No provided to patient/care provider Clinical Summary of Care Provided Yes Assessment/Plan Assessment/Plan (1) Essential hypertension: CODE(S): I10 - Essential (primary) hypertension (2) Uncontrolled type 2 diabetes mellitus with hyperglycemia: CODE(S): E11.65 - Type 2 diabetes mellitus with hyperglycemia (3) Nonhealing nonsurgical wound: CODE(S): T14.8XXA - Other injury of unspecified body region, initial encounter (4) Atherosclerosis of coronary artery of [place] heart without angina pectoris: CODE(S): I25.10 - Atherosclerotic heart disease of [place] coronary artery without angina pectoris QUALIFIERS: Coronary Disease-Associated Artery/Lesion type: [place] artery Qualified Code(s): I25.10 - Atherosclerotic heart disease of [place] coronary artery without angina pectoris (5) Chronic ulcer of left ankle with fat layer exposed: CODE(S): L97.322 - Non-pressure chronic ulcer of left ankle with fat layer exposed (6) Diabetic ulcer of left ankle associated with type 2 diabetes mellitus, with fat layer exposed: CODE(S): E11.622 - Type 2 diabetes mellitus with other skin ulcer; L97.322 - Non-pressure chronic ulcer of left ankle with fat layer exposed (7) Diabetes: CODE(S): E11.9 - Type 2 diabetes mellitus without complications QUALIFIERS: Diabetes mellitus type: type 2 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 At home wound-care instructions: Will continue to use Santyl applied nickel thick to ulcer and lightly moisten and cover with Aquacel Ag and cover with foam bordered dressing. Keep dressing clean and dry. Will have him use tubigrip compression to left leg to help with edema. He has appointment scheduled for Thursday02/02/[address] Gibson to discuss possible surgical revascularization options. Will have him return Thursday for snap vac re-application as Dr. Gibson would like to see his ulcer on Thursday. Off-loading: The patient was instructed to avoid pressure and friction on the affected areas. Reposition every 2 hours at minimum. Avoid prolonged standing and/or dangling of legs. When seated, feet should be elevated at chest level. Frequent ambulation is encouraged. Diet: Patient encouraged to increase protein intake while taking caution to avoid high carbohydrate and/or sugar intake. Labs/cultures/imaging: Patient pulled up on his phone and PANCHO left ankle in May 2022 was 1.07. Culture 01/09/23 positive for Pseudomonas, Klebsiella, Enterococcus and Anaerobic bacteria. Venous studies unremarkable. PANCHO left ankle 01/14 was 1.37 CTA with run-off done at 01/21/23 and there is some stenosis in the anterior tibial artery but blood flow to dorsalis pedis is present. Follow-up: Return in 1 week for wound care follow up. Return sooner or report to the emergency room should symptoms worsen, or new symptoms arise. Note: [employer] speech recognition typing secretary software was used to create portions of this document. Sound-alike and misspelled words, as well as other typing secretary errors may be contained in the documentation.
== END 2023-02-02 23:59 | disposition home or self-care (01) ==
LOC: WC 08:30
PROVIDERS: PCP Family Medicine; Referring Provider Family Medicine; Visit Provider Family Medicine
DX: E11.622 Type 2 diabetes mellitus with other skin ulcer (principal); E11.51 Type 2 diabetes mellitus with diabetic peripheral angiopathy without gangrene; L97.322 Non-pressure chronic ulcer of left ankle with fat layer exposed; E11.65 Type 2 diabetes mellitus with hyperglycemia; E11.610 Type 2 diabetes mellitus with diabetic neuropathic arthropathy; Z79.84 Long term (current) use of oral hypoglycemic drugs; I10 Essential (primary) hypertension; I25.10 Atherosclerotic heart disease of native coronary artery without angina pectoris; E78.00 Pure hypercholesterolemia, unspecified; Z79.82 Long term (current) use of aspirin; Z79.899 Other long term (current) drug therapy; R60.0 Localized edema
CPT/HCPCS: 11042; 75635; 87070; 87075; 87077; 87186; 87205; 93923; 93971; 97607; Q9967

== ENCOUNTER → 2023-02-02 | Outpatient (CLI) | payer MEDICARE, OTHER, SELFPAY ==
[2023-02-02 12:38] LABS: ALB/GLOB Ratio 1.1 RATIO (0.9-2.4); AST(SGOT) 14 U/L (15-37); Alanine Aminotransfer ALT/SGPT 20 U/L (16-61); Albumin, Serum 3.7 g/dL (3.2-5.0); Alkaline Phosphatase 91 U/L (45-117); Anion Gap 4 (5-15); BUN 20 mg/dL (7-18); BUN/Creat Ratio 18.7 RATIO (10-20); Calcium,Total 9.8 mg/dL (8.5-10.1); Chloride 106 mmol/L (98-107); Cholesterol 98 mg/dL (200); Creatinine, Serum 1.07 mg/dL (0.70-1.30); EST Glomerular Filtration Rate 73 mL/min (>60); Est Glom Filt Rate - Afr Amer 89 mL/min (>60); Globulin 3.5 g/dL (2.2-4.2); Glucose 120 mg/dL (74-106); High Density Lipoprotein 47 mg/dL; Potassium 4.5 mmol/L (3.5-5.1); Protein, Total 7.2 g/dL (6.4-8.2); Sodium Level 137 mmol/L (136-145); Triglycerides 81 mg/dL; Very Low Density Lipoprotein 16 mg/dL (5-40)
== END | disposition home or self-care (01) ==
LOC: MFPLAB 10:00
PROVIDERS: PCP Family Medicine; Visit Provider Family Medicine
DX: E11.51 Type 2 diabetes mellitus with diabetic peripheral angiopathy without gangrene (principal); E78.5 Hyperlipidemia, unspecified
CPT/HCPCS: 36415; 80053; 80061

== ENCOUNTER 2023-02-27 08:15 | Outpatient (RCR) | payer MEDICARE, OTHER, SELFPAY ==
[2023-02-03 00:40] VITALS: BP 145/89; PULSE 85; RESP 18; TEMP 36.1; BMI 33.1
[2023-02-03 14:25] VITALS: BP 121/69; PULSE 90; RESP 16; TEMP 36; BMI 33.1
[2023-02-06 09:33] VITALS: BP 138/83; PULSE 84; RESP 18; TEMP 36.3; BMI 33.1
--- NOTE | 2023-02-06 13:43 | PCM.WC.PN ---
History of Present Illness Date of Service: 02/06/23 Chief Complaint: non healing ulcer of left lateral malleolus/ankle History of Wound: Be is a 66-year-old white male with type 2 diabetes and a history of poor healing wounds that presents to the wound center today for evaluation and treatment of a nonhealing ulcer of his left lateral ankle/malleolus that started approximately 4 weeks ago. He thinks that his boot was rubbing the area and then noticed that there was drainage and was treating with a bandaid and antibiotic ointment with no improvement and increased drainage and erythema and swelling and then was seen by his PCP who started him on doxycyline and there was still no improvement so he gave him 1 dose of IM Rocephin and then started him on Cephalexin and Bactrim for which he has been taking almost 10 days of treatment and has 5 more days left of medication. He was then referred to the wound center for treatment. He has been covering the wound with gauze and antibiotic ointment but leaving it open to air when he is at home. He appears to have Charcot of the right foot and a collapsed right arch. He has had vascular testing by Dr. Flores his remote sensing advisor at the [facility] last year. His last A1C is unknown. He denies fever, chills, increased erythema or drainage and has been taking his antibiotics as instructed. Subjective Subjective Calvin returns for follow up of ulcer of lateral left ankle. Ulcer is unchanged but a little less erythema. He is continuing to have pain. He has been tolerating treatment with Santyl and Snap vac. Wound culture 01/09/23 was positive for anaerobic bacteria, Pseudomonas, Enterococcus and Klebsiella. He was started on Augmentin and Ciprofloxacin and completed treatment. He had vascular testing and venous insufficiency not identified. ABIs were WNL and not changed from previous. He had CTA with runoff scheduled on 01/21/23 which showed some areas of stenosis in left leg but there was blood flow to dorsalis pedis artery. He had consultation with vascular surgery on 02/02/[address] Gibson prefers to defer any surgical intervention for now as he does not think there is significant arterial disease in his left leg contributing to his difficulty healing. Denies fever, chills, increased drainage or pain. Objective Data Objective Data Vital Signs: Vital Signs Temp Pulse Resp BP O2 Del Method 97.4 F L 84 18 138/83 H Room Air 02/06/23 09:33 02/06/23 09:33 02/06/23 09:33 02/06/23 09:33 02/03/23 14:25 Oxygen Delivery Method Room Air Weight: 112.491 kg Body Mass Index (BMI) 33.1 Physical Exam Const alert, oriented x3 and no apparent distress General Appearance: cooperative and comfortable HEENT normocephalic and head/scalp atraumatic Resp normal respiratory effort Effort and Inspection: able to speak in complete sentences Cardio regular rate and regular rhythm Skin Wounds: wounds noted Wound Narrative: as in clinical panel Psych mental status grossly normal, thought process normal, cooperative and affect normal Debridement Note Debridement Note Wound debrided: left lateral ankle Laterality: Left Wound Grade/Stage: Soler grade 2 Type of Debridement: Excisional debridement Anesthesia Used: 4% Lidocaine Solution, 5% Lidocaine Gel and Cetacaine Depth: Down to and including healthy tissue and in the subcutaneous layer Percentage of wound debrided: 100 Instrument Used: 5mm curette Tissue Removed: Yellow slough, devitalized tissue Severity: Fat Layer Exposed Amount of bleeding with debridement: Mild Bleeding Controlled with: Compression and gauze Patient tolerated procedure: Patient tolerated procedure well Post-Debridement Measurements and Additional Note: Post-Debridement Measurements/Treatment - Nurse 1 - General Ulcer Assessment Start: 02/03/23 14:25 Freq: Status: Active Protocol: AIXA Activity Type Activity Date Activity User E-sign Co-sign Detail Recorded Client Recorded Date Recorded By Document 02/03/23 14:25 [id number] 02/03/23 14:32 Document 02/06/23 09:33 [id number] 02/06/23 09:45 02/03/23 02/06/23 14:25 09:33 - Today's Visit Information Type of service Nurse-only Follow-up Visit Visit (Physician/[employer] SAL[employer]ENT ) Arrival Mode Ambulatory Ambulatory Transfer Assistance None Accompanied by self Patient Identification Verified (Name & No Yes ) Patient Requires Transmission-Based No No Precautions Height and Weight Body Mass Index (BMI) 33.1 33.1 BMI Classification Obese Obese Vital Signs Temperature (97.8 F-99.1 F) 96.8 F L 97.4 F L Temperature Source Temporal Temporal Pulse Rate (60-100) 90 84 Pulse Location Monitor Monitor Respiratory Rate (12-18) 16 18 Respiratory rate source Observation Observation Oxygen Delivery Method Room Air Blood Pressure (90/60-120/80) 121/69 H 138/83 H Blood Pressure Mean (mm Hg) 86 101 Source Monitor Monitor Position Sitting Semi-Fowlers Blood Pressure Location Left Arm Left Arm History Since Last Visit- (Skip if this is Patient's initial visit) Have you changed medications since your No No last visit? Any new allergies or adverse reactions No No Had a fall/change in ADL's that may No No increase risk of falls Signs or symptoms of abuse and/or No No neglect since last visit Have you been in the hospital since your No No last visit? Has dressing in place as prescribed Yes Yes Has compression in place as prescribed Yes Yes Has offloadiing in place as prescribed No N/A Experienced any changes in pain level or No No management Left Footwear Regular Shoe Regular Shoe Right Footwear Regular Shoe Regular Shoe Pain Scale: 0-10 Numeric Is Patient Pain Free? Yes Yes WC - Nurse 1 - General Ulcer Measurement Start: 02/03/23 14:25 Freq: Status: Active Protocol: Activity Type Activity Date Activity User E-sign Co-sign Detail Recorded Client Recorded Date Recorded By Document 02/03/23 14:25 [id number] 02/03/23 14:32 MW Document 02/06/23 09:33 [id number] 02/06/23 09:45 02/03/23 02/06/23 14:25 09:33 Wound Center Nurse 1 3. L lateral ankle -Combined with other wound No -Current Size (cm) - Length 2.0 -Current Size (cm) - Width 1.7 -Current Size (cm) - Depth 0.6 -Total Square Cm 3.40 -Photo Taken Yes -Epithelialization None Present -Tunneling No -Undermining/Tunneling No -Circular Undermining No -Exudate Amt Medium -Exudate Type Serosanguineous -Wound Margin Flat & Intact -Granulation Amt Small (1-33%) -Granulation Quality Red -Slough/Fibrin Yes -Necrosis Amt Medium (34-66%) -Necrotic Tissue Type Adherent Slough -Structure Exposed N/A -Texture (Gricelda-wound Skin Appearance) Assessed Assessed, Localized Edema -Moisture (Gricelda-wound Skin Appearance) Assessed Assessed,Dry/ Scaly -Color (Gricelda-wound Skin Appearance) Assessed Assessed -Temperature (Gricelda-wound Skin No Abnormality Appearance) (Pt Warm) -Tenderness on Palpation (Gricelda-wound No Skin Appearance) -Ulcer Cleansing Soap and Water Rinsed/ Irrigated with Saline -Foul Odor after Cleansing No No -Anesthetic Used 5% Lidocaine Gel Lower Limb Edema Present No Yes Left Calf (cm) 39.5 Left Ankle (cm) 26.5 WC - Nurse 2 - General Ulcer CM Notes Start: 02/03/23 14:25 Freq: Status: Active Protocol: Activity Type Activity Date Activity User E-sign Co-sign Detail Recorded Client Recorded Date Recorded By Document 02/06/23 10:02 MW [id number] 02/06/23 10:26 MW 02/06/23 10:02 Wound Center Nurse 2 3. L lateral ankle -Time 10:03 -Correct Patient Yes -Correct Side, Site, Position Yes -Correct Procedure Yes -Procedure Performed Yes -Type of Procedure Debridement -Clinical Debridement Subcutaneous -Tissue Removed Subcutaneous -Post Debridement (cm) - Length 1.9 -Post Debridement (cm) - Width 1.7 -Post Debridement (cm) - Depth 0.4 -Total Square (Post) (cm) 3.23 -Area of Debridement (cm) - Length 1.9 -Area of Debridement (cm) - Width 1.7 -Total Square (Area) (cm) 3.23 -Tunneling No -Undermining/Tunneling No -Circular Undermining No -Wound/Ulcer Outcome Not Healed -Ulcer Cleansing Rinsed/ Irrigated with Saline -Foul Odor after Cleansing No -Bioengineered Tissue No -Bleeding Controlled with Pressure -Treatment Response Procedure Tolerated Well -Offloading No -Debridement - Subq, 1st 20sq cm Yes Pain Scale: 0-10 Numeric Is Patient Pain Free? Yes WC - Nurse 3 - General Ulcer D/C NN Start: 02/03/23 14:25 Freq: Status: Active Protocol: Activity Type Activity Date Activity User E-sign Co-sign Detail Recorded Client Recorded Date Recorded By Document 02/03/23 14:25 MW [id number] 02/03/23 14:32 MW Document 02/06/23 10:57 RB [id number] 02/06/23 10:59 RB 02/03/23 02/06/23 14:25 10:57 Vital Signs Temperature (97.8 F-99.1 F) 96.8 F L Temperature Source Temporal Pulse Rate (60-100) 90 Pulse Location Monitor Respiratory Rate (12-18) 16 Respiratory rate source Observation Oxygen Delivery Method Room Air Blood Pressure (90/60-120/80) 121/69 H Blood Pressure Mean (mm Hg) 86 Source Monitor Position Sitting Blood Pressure Location Left Arm Pain Scale: 0-10 Numeric Is Patient Pain Free? Yes Yes Wound Care Center Nurse 3 3. L lateral ankle -Ulcer Cleansing Soap and Water Rinsed/ Irrigated with Saline -Negative Pressure Wound Therapy Continue Continue -Setting (mmHg) 125 125 -Negative Pressure is Continuous Continuous -Other Dressing blue foam santyl to wound base before snap application -NPWT Application Charge NPWT </= 50 sq NPWT & cm (disp) ($) Debridement (nc ) Left -Tubular Bandage Single Layer -Size of Tubigrip Used Size D -Size D ($) 1 Treatment Response Procedure Procedure Tolerated Well Tolerated Well WC - Visit Discharge Discharge Condition Stable Stable Ambulatory Status Ambulatory Ambulatory Transportation Private Auto Private Auto Accompanied by self Medication Reconcilliation completed & No No provided to patient/care provider Clinical Summary of Care Provided Yes Yes Assessment/Plan Assessment/Plan (1) Essential hypertension: CODE(S): I10 - Essential (primary) hypertension (2) Uncontrolled type 2 diabetes mellitus with hyperglycemia: CODE(S): E11.65 - Type 2 diabetes mellitus with hyperglycemia (3) Nonhealing nonsurgical wound: CODE(S): T14.8XXA - Other injury of unspecified body region, initial encounter (4) Atherosclerosis of coronary artery of [place] heart without angina pectoris: CODE(S): I25.10 - Atherosclerotic heart disease of [place] coronary artery without angina pectoris QUALIFIERS: Coronary Disease-Associated Artery/Lesion type: [place] artery Qualified Code(s): I25.10 - Atherosclerotic heart disease of [place] coronary artery without angina pectoris (5) Chronic ulcer of left ankle with fat layer exposed: CODE(S): L97.322 - Non-pressure chronic ulcer of left ankle with fat layer exposed (6) Diabetic ulcer of left ankle associated with type 2 diabetes mellitus, with fat layer exposed: CODE(S): E11.622 - Type 2 diabetes mellitus with other skin ulcer; L97.322 - Non-pressure chronic ulcer of left ankle with fat layer exposed (7) Diabetes: CODE(S): E11.9 - Type 2 diabetes mellitus without complications QUALIFIERS: Diabetes mellitus type: type 2 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 At home wound-care instructions: Will continue to use Santyl applied nickel thick to ulcer and lightly moisten and apply Snap-vac. If vac loses suction then he should apply Santyl and cover with Aquacel Ag and cover with foam bordered dressing daily. Keep dressing clean and dry. Will have him use tubigrip compression to left leg to help with edema. Will have him return Thursday for snap vac re-application and again on Thursday. Off-loading: The patient was instructed to avoid pressure and friction on the affected areas. Reposition every 2 hours at minimum. Avoid prolonged standing and/or dangling of legs. When seated, feet should be elevated at chest level. Frequent ambulation is encouraged. Diet: Patient encouraged to increase protein intake while taking caution to avoid high carbohydrate and/or sugar intake. Labs/cultures/imaging: Patient pulled up on his phone and PANCHO left ankle in May 2022 was 1.07. Culture 01/09/23 positive for Pseudomonas, Klebsiella, Enterococcus and Anaerobic bacteria. Venous studies unremarkable. PANCHO left ankle 01/14 was 1.37 CTA with run-off done at 01/21/23 and there is some stenosis in the anterior tibial artery but blood flow to dorsalis pedis is present. Follow-up: Return in 2 weeks for wound care follow up. Return sooner or report to the emergency room should symptoms worsen, or new symptoms arise. Note: [employer] speech recognition block mechanic software was used to create portions of this document. Sound-alike and misspelled words, as well as other block mechanic errors may be contained in the documentation.
[2023-02-16 08:21] VITALS: BP 137/85; PULSE 84; RESP 16; TEMP 36.4; BMI 33.1
[2023-02-20 09:11] VITALS: BP 135/78; PULSE 82; RESP 20; TEMP 36.5; BMI 33.1
--- NOTE | 2023-02-20 14:03 | PN.PCM_ITS ---
History of Present Illness Date of Service: 02/20/23 Chief Complaint: non healing ulcer of left lateral malleolus/ankle History of Wound: Be is a 66-year-old white male with type 2 diabetes and a history of poor healing wounds that presents to the wound center today for evaluation and treatment of a nonhealing ulcer of his left lateral ankle/malleolus that started approximately 4 weeks ago. He thinks that his boot was rubbing the area and then noticed that there was drainage and was treating with a bandaid and antibiotic ointment with no improvement and increased drainage and erythema and swelling and then was seen by his PCP who started him on doxycyline and there was still no improvement so he gave him 1 dose of IM Rocephin and then started him on Cephalexin and Bactrim for which he has been taking almost 10 days of treatment and has 5 more days left of medication. He was then referred to the wound center for treatment. He has been covering the wound with gauze and antibiotic ointment but leaving it open to air when he is at home. He appears to have Charcot of the right foot and a collapsed right arch. He has had vascular testing by Dr. Flores his long lines operator at the [facility] last year. His last A1C is unknown. He denies fever, chills, increased erythema or drainage and has been taking his antibiotics as instructed. Subjective Subjective Calvin returns for follow up of ulcer of lateral left ankle. Ulcer is unchanged but a little less erythema. He has been tolerating treatment with Santyl and Snap vac. Wound culture 01/09/23 was positive for anaerobic bacteria, Pseudomonas, Enterococcus and Klebsiella. He was started on Augmentin and Ciprofloxacin and completed treatment. He had vascular testing and venous insufficiency not identified. ABIs were WNL and not changed from previous. He had CTA with runoff scheduled on 01/21/23 which showed some areas of stenosis in left leg but there was blood flow to dorsalis pedis artery. He had consultation with vascular surgery on 02/02/[address] Gibson prefers to defer any surgical intervention for now as he does not think there is significant arterial disease in his left leg contributing to his difficulty healing. Denies fever, chills, increased drainage or pain. Objective Data Objective Data Vital Signs: Vital Signs Temp Pulse Resp BP O2 Del Method 97.7 F L 82 20 H 135/78 H Room Air 02/20/23 09:11 02/20/23 09:11 02/20/23 09:11 02/20/23 09:11 02/03/23 14:25 Oxygen Delivery Method Room Air Weight: 112.491 kg Body Mass Index (BMI) 33.1 Physical Exam Const alert, oriented x3 and no apparent distress General Appearance: cooperative and comfortable HEENT normocephalic and head/scalp atraumatic Resp normal respiratory effort Effort and Inspection: able to speak in complete sentences Cardio regular rate and regular rhythm Skin Wounds: wounds noted Wound Narrative: as in clinical panel Psych mental status grossly normal, thought process normal, cooperative and affect normal Debridement Note Debridement Note Wound debrided: left lateral ankle Laterality: Left Wound Grade/Stage: Soler grade 2 Type of Debridement: Excisional debridement Anesthesia Used: 4% Lidocaine Solution, 5% Lidocaine Gel and Cetacaine Depth: Down to and including healthy tissue and in the subcutaneous layer Percentage of wound debrided: 100 Instrument Used: 5mm curette Tissue Removed: Yellow slough, devitalized tissue Severity: Fat Layer Exposed Amount of bleeding with debridement: Mild Bleeding Controlled with: Compression and gauze Patient tolerated procedure: Patient tolerated procedure well Post-Debridement Measurements and Additional Note: Post-Debridement Measurements/Treatment - Nurse 1 - General Ulcer Assessment Start: 02/03/23 14:25 Freq: Status: Active Protocol: AIXA Activity Type Activity Date Activity User E-sign Co-sign Detail Recorded Client Recorded Date Recorded By Document 02/03/23 14:25 [id number] 02/03/23 14:32 MW Document 02/06/23 09:33 [id number] 02/06/23 09:45 JF Document 02/16/23 08:21 JF Desktop 02/16/23 08:25 JF Document 02/20/23 09:11 DL [id number] 02/20/23 09:19 DL 02/03/23 02/06/23 02/16/23 14:25 09:33 08:21 - Today's Visit Information Type of service Nurse-only Follow-up Visit Nurse-only Visit (Physician/SHIPPING SERVICES SALES REPRESENTATIVE Visit ) Arrival Mode Ambulatory Ambulatory Ambulatory Transfer Assistance None Accompanied by self Patient Identification Verified (Name & No Yes Yes ) Patient Requires Transmission-Based No No No Precautions Height and Weight Body Mass Index (BMI) 33.1 33.1 33.1 BMI Classification Obese Obese Obese Vital Signs Temperature (97.8 F-99.1 F) 96.8 F L 97.4 F L 97.5 F L Temperature Source Temporal Temporal Temporal Pulse Rate (60-100) 90 84 84 Pulse Location Monitor Monitor Monitor Respiratory Rate (12-18) 16 18 16 Respiratory rate source Observation Observation Observation Oxygen Delivery Method Room Air Blood Pressure (90/60-120/80) 121/69 H 138/83 H 137/85 H Blood Pressure Mean (mm Hg) 86 101 102 Source Monitor Monitor Monitor Position Sitting Semi-Fowlers Semi-Fowlers Blood Pressure Location Left Arm Left Arm Left Arm History Since Last Visit- (Skip if this is Patient's initial visit) Have you changed medications since your No No last visit? Any new allergies or adverse reactions No No Had a fall/change in ADL's that may No No increase risk of falls Signs or symptoms of abuse and/or No No neglect since last visit Have you been in the hospital since your No No last visit? Has dressing in place as prescribed Yes Yes Has compression in place as prescribed Yes Yes Has offloadiing in place as prescribed No N/A Experienced any changes in pain level or No No management Left Footwear Regular Shoe Regular Shoe Regular Shoe Right Footwear Regular Shoe Regular Shoe Regular Shoe Pain Scale: 0-10 Numeric Is Patient Pain Free? Yes Yes Yes 02/20/23 09:11 WC - Today's Visit Information Type of service Follow-up Visit (Physician/SHIPPING SERVICES SALES REPRESENTATIVE ) Arrival Mode Ambulatory Transfer Assistance None Accompanied by Patient Identification Verified (Name & Yes ) Patient Requires Transmission-Based No Precautions Height and Weight Body Mass Index (BMI) 33.1 BMI Classification Obese Vital Signs Temperature (97.8 F-99.1 F) 97.7 F L Temperature Source Temporal Pulse Rate (60-100) 82 Pulse Location Monitor Respiratory Rate (12-18) 20 H Respiratory rate source Observation Oxygen Delivery Method Blood Pressure (90/60-120/80) 135/78 H Blood Pressure Mean (mm Hg) 97 Source Monitor Position Blood Pressure Location History Since Last Visit- (Skip if this is Patient's initial visit) Have you changed medications since your No last visit? Any new allergies or adverse reactions No Had a fall/change in ADL's that may No increase risk of falls Signs or symptoms of abuse and/or No neglect since last visit Have you been in the hospital since your No last visit? Has dressing in place as prescribed Yes Has compression in place as prescribed Yes Has offloadiing in place as prescribed N/A Experienced any changes in pain level or No management Left Footwear Right Footwear Pain Scale: 0-10 Numeric Is Patient Pain Free? Yes WC - Nurse 1 - General Ulcer Measurement Start: 02/03/23 14:25 Freq: Status: Active Protocol: Activity Type Activity Date Activity User E-sign Co-sign Detail Recorded Client Recorded Date Recorded By Document 02/03/23 14:25 MW [id number] 02/03/23 14:32 MW Document 02/06/23 09:33 JF [id number] 02/06/23 09:45 JF Document 02/16/23 08:21 JF Desktop 02/16/23 08:25 JF Document 02/20/23 09:11 DL [id number] 02/20/23 09:19 DL 02/03/23 02/06/23 02/16/23 14:25 09:33 08:21 Wound Center Nurse 1 3. L lateral ankle -Combined with other wound No No -Current Size (cm) - Length 2.0 -Current Size (cm) - Width 1.7 -Current Size (cm) - Depth 0.6 -Total Square Cm 3.40 -Photo Taken Yes No -Epithelialization None Present None Present -Tunneling No No -Undermining/Tunneling No No -Undermining/Tunneling Starts (O'clock ) -Undermining/Tunneling Ends (O'clock) -Maximum Distance (cm) -Circular Undermining No No -Exudate Amt Medium Medium -Exudate Type Serosanguineous Serosanguineous -Wound Margin Flat & Intact Flat & Intact -Granulation Amt Small (1-33%) None Present (0 %) -Granulation Quality Red -Slough/Fibrin Yes -Necrosis Amt Medium (34-66%) Large (67-100%) -Necrotic Tissue Type Adherent Slough Adherent Slough -Structure Exposed N/A N/A -Texture ([place]-wound Skin Appearance) Assessed Assessed, Assessed Localized Edema -Moisture ([place]-wound Skin Appearance) Assessed Assessed,Dry/ Assessed,Dry/ Scaly Scaly -Color ([place]-wound Skin Appearance) Assessed Assessed Assessed -Temperature ([place]-wound Skin No Abnormality Cool/Cold Appearance) (Pt Warm) -Tenderness on Palpation ([place]-wound No No Skin Appearance) -Ulcer Cleansing Soap and Water Rinsed/ Wound Cleanser Irrigated with Saline -Foul Odor after Cleansing No No No -Anesthetic Used 5% Lidocaine Gel Lower Limb Edema Present No Yes NA Left Calf (cm) 39.5 Left Ankle (cm) 26.5 02/20/23 09:11 Wound Center Nurse 1 3. L lateral ankle -Combined with other wound -Current Size (cm) - Length 1.8 -Current Size (cm) - Width 1.7 -Current Size (cm) - Depth 0.5 -Total Square Cm 3.06 -Photo Taken -Epithelialization -Tunneling -Undermining/Tunneling -Undermining/Tunneling Starts (O'clock 11 ) -Undermining/Tunneling Ends (O'clock) 2 -Maximum Distance (cm) 0.5 -Circular Undermining -Exudate Amt Medium -Exudate Type Serosanguineous -Wound Margin Distinct, Outline Attached -Granulation Amt Small (1-33%) -Granulation Quality [place] -Slough/Fibrin -Necrosis Amt Large (67-100%) -Necrotic Tissue Type Adherent Slough -Structure Exposed N/A -Texture ([place]-wound Skin Appearance) Localized Edema -Moisture ([place]da-wound Skin Appearance) Maceration -Color ([place]da-wound Skin Appearance) Erythema -Temperature ([place]-wound Skin No Abnormality Appearance) (Pt Warm) -Tenderness on Palpation ([place]-wound No Skin Appearance) -Ulcer Cleansing Soap and Water -Foul Odor after Cleansing No -Anesthetic Used 5% Lidocaine Gel Lower Limb Edema Present Left Calf (cm) 38 Left Ankle (cm) 25.3 WC - Nurse 2 - General Ulcer CM Notes Start: 02/03/23 14:25 Freq: Status: Active Protocol: Activity Type Activity Date Activity User E-sign Co-sign Detail Recorded Client Recorded Date Recorded By Document 02/06/23 10:02 MW [id number] 02/06/23 10:26 MW Document 02/20/23 09:47 RB [id number] 02/20/23 10:03 RB 02/06/23 02/20/23 10:02 09:47 Wound Center Nurse 2 3. L lateral ankle -Time 10:03 09:48 -Correct Patient Yes Yes -Correct Side, Site, Position Yes Yes -Correct Procedure Yes Yes -Procedure Performed Yes Yes -Type of Procedure Debridement Debridement -Clinical Debridement Subcutaneous Subcutaneous -Tissue Removed Subcutaneous Subcutaneous -Post Debridement (cm) - Length 1.9 1.8 -Post Debridement (cm) - Width 1.7 1.7 -Post Debridement (cm) - Depth 0.4 0.5 -Total Square (Post) (cm) 3.23 3.06 -Area of Debridement (cm) - Length 1.9 1.8 -Area of Debridement (cm) - Width 1.7 1.7 -Total Square (Area) (cm) 3.23 3.06 -Tunneling No No -Undermining/Tunneling No Yes -Undermining/Tunneling Starts (O'clock 2 ) -Undermining/Tunneling Ends (O'clock) 4 -Maximum Distance (cm) 0.4 -Circular Undermining No No -Wound/Ulcer Outcome Not Healed Not Healed -Ulcer Cleansing Rinsed/ Rinsed/ Irrigated with Irrigated with Saline Saline -Foul Odor after Cleansing No No -Bioengineered Tissue No No -Bleeding Controlled with Pressure NA -Treatment Response Procedure Procedure Tolerated Well Tolerated Well -Offloading No No -Debridement - Subq, 1st 20sq cm Yes Yes Pain Scale: 0-10 Numeric Is Patient Pain Free? Yes Yes WC - Nurse 3 - General Ulcer D/C NN Start: 02/03/23 14:25 Freq: Status: Active Protocol: Activity Type Activity Date Activity User E-sign Co-sign Detail Recorded Client Recorded Date Recorded By Document 02/03/23 14:25 MW [id number] 02/03/23 14:32 MW Document 02/06/23 10:57 RB [id number] 02/06/23 10:59 RB Document 02/16/23 08:21 JF Desktop 02/16/23 08:25 JF Document 02/20/23 10:19 DL [id number] 02/20/23 10:29 DL 02/03/23 02/06/23 02/16/23 14:25 10:57 08:21 Vital Signs Temperature (97.8 F-99.1 F) 96.8 F L 97.5 F L Temperature Source Temporal Temporal Pulse Rate (60-100) 90 84 Pulse Location Monitor Monitor Respiratory Rate (12-18) 16 16 Respiratory rate source Observation Observation Oxygen Delivery Method Room Air Blood Pressure (90/60-120/80) 121/69 H 137/85 H Blood Pressure Mean (mm Hg) 86 102 Source Monitor Monitor Position Sitting Semi-Fowlers Blood Pressure Location Left Arm Left Arm Pain Scale: 0-10 Numeric Is Patient Pain Free? Yes Yes Yes Wound Care Center Nurse 3 3. L lateral ankle -Ulcer Cleansing Soap and Water Rinsed/ Irrigated with Saline -Negative Pressure Wound Therapy Continue Continue Continue -Setting (mmHg) 125 125 125 -Negative Pressure is Continuous Continuous Continuous -Other Dressing blue foam santyl to wound base before snap application -NPWT Application Charge NPWT </= 50 sq NPWT & NPWT </= 50 sq cm (disp) ($) Debridement (nc cm (disp) ($) ) Left -Tubular Bandage Single Layer Single Layer -Size of Tubigrip Used Size D Size D -Size D ($) 1 0 Treatment Response Procedure Procedure Tolerated Well Tolerated Well WC - Visit Discharge Discharge Condition Stable Stable Stable Ambulatory Status Ambulatory Ambulatory Cane Transportation Private Auto Private Auto Private Auto Accompanied by self Medication Reconcilliation completed & No No Yes provided to patient/care provider Clinical Summary of Care Provided Yes Yes Yes 02/20/23 10:19 Vital Signs Temperature (97.8 F-99.1 F) Temperature Source Pulse Rate (60-100) Pulse Location Respiratory Rate (12-18) Respiratory rate source Oxygen Delivery Method Blood Pressure (90/60-120/80) Blood Pressure Mean (mm Hg) Source Position Blood Pressure Location Pain Scale: 0-10 Numeric Is Patient Pain Free? Yes Wound Care Center Nurse 3 3. L lateral ankle -Ulcer Cleansing Rinsed/ Irrigated with Saline -Negative Pressure Wound Therapy Continue -Setting (mmHg) 125 -Negative Pressure is Continuous -Other Dressing -NPWT Application Charge NPWT & Debridement (nc ) Left -Tubular Bandage -Size of Tubigrip Used -Size D ($) Treatment Response Procedure Tolerated Well WC - Visit Discharge Discharge Condition Stable Ambulatory Status Ambulatory Transportation Private Auto Accompanied by Medication Reconcilliation completed & No provided to patient/care provider Clinical Summary of Care Provided Yes Assessment/Plan Assessment/Plan (1) Essential hypertension: CODE(S): I10 - Essential (primary) hypertension (2) Uncontrolled type 2 diabetes mellitus with hyperglycemia: CODE(S): E11.65 - Type 2 diabetes mellitus with hyperglycemia (3) Nonhealing nonsurgical wound: CODE(S): T14.8XXA - Other injury of unspecified body region, initial encounter (4) Atherosclerosis of coronary artery of [place] heart without angina pectoris: CODE(S): I25.10 - Atherosclerotic heart disease of [place] coronary artery without angina pectoris QUALIFIERS: Coronary Disease-Associated Artery/Lesion type: [place] artery Qualified Code(s): I25.10 - Atherosclerotic heart disease of [place] coronary artery without angina pectoris (5) Chronic ulcer of left ankle with fat layer exposed: CODE(S): L97.322 - Non-pressure chronic ulcer of left ankle with fat layer exposed (6) Diabetic ulcer of left ankle associated with type 2 diabetes mellitus, with fat layer exposed: CODE(S): E11.622 - Type 2 diabetes mellitus with other skin ulcer; L97.322 - Non-pressure chronic ulcer of left ankle with fat layer exposed (7) Diabetes: CODE(S): E11.9 - Type 2 diabetes mellitus without complications QUALIFIERS: Diabetes mellitus type: type 2 Diabetes mellitus long chain quiller tender insulin use: unspecified long chain quiller tender insulin use status Diabetes mellitus complication status: with skin complications Diabetes mellitus complication detail: with other skin ulcer Qualified Code(s): E11.622 - Type 2 diabetes mellitus with other skin ulcer; L98.499 - Non-pressure chronic ulcer of skin of other sites with unspecified severity PLAN: Plan Debridement performed today in clinic as annotated above. At home wound-care instructions: Will continue to use Santyl applied nickel thick to ulcer and lightly moisten and apply Snap-vac. If vac loses suction then he should apply Santyl and cover with Aquacel Ag and cover with foam bordered dressing daily. Keep dressing clean and dry. Will have him use tubigrip compression to left leg to help with edema. Off-loading: The patient was instructed to avoid pressure and friction on the affected areas. Reposition every 2 hours at minimum. Avoid prolonged standing and/or dangling of legs. When seated, feet should be elevated at chest level. Frequent ambulation is encouraged. Diet: Patient encouraged to increase protein intake while taking caution to avoid high carbohydrate and/or sugar intake. Labs/cultures/imaging: Patient pulled up on his phone and PANCHO left ankle in May 2022 was 1.07. Culture 01/09/23 positive for Pseudomonas, Klebsiella, Enterococcus and Anaerobic bacteria. Venous studies unremarkable. PANCHO left ankle 01/14 was 1.37 CTA with run-off done at 01/21/23 and there is some stenosis in the anterior tibial artery but blood flow to dorsalis pedis is present. Follow-up: Return in 1 week for wound care follow up. Return sooner or report to the emergency room should symptoms worsen, or new symptoms arise. Note: [employer] speech recognition i&c technician software was used to create portions of this document. Sound-alike and misspelled words, as well as other i&c technician errors may be contained in the documentation.
[2023-02-27 08:07] VITALS: BP 139/81; PULSE 80; RESP 18; TEMP 35.9; BMI 33.1
--- NOTE | 2023-02-27 14:39 | PN.PCM_ITS ---
History of Present Illness Date of Service: 02/27/23 Chief Complaint: non healing ulcer of left lateral malleolus/ankle History of Wound: Be is a 66-year-old white male with type 2 diabetes and a history of poor healing wounds that presents to the wound center today for evaluation and treatment of a nonhealing ulcer of his left lateral ankle/malleolus that started approximately 4 weeks ago. He thinks that his boot was rubbing the area and then noticed that there was drainage and was treating with a bandaid and antibiotic ointment with no improvement and increased drainage and erythema and swelling and then was seen by his PCP who started him on doxycyline and there was still no improvement so he gave him 1 dose of IM Rocephin and then started him on Cephalexin and Bactrim for which he has been taking almost 10 days of treatment and has 5 more days left of medication. He was then referred to the wound center for treatment. He has been covering the wound with gauze and antibiotic ointment but leaving it open to air when he is at home. He appears to have Charcot of the right foot and a collapsed right arch. He has had vascular testing by Dr. Flores his director card at the [facility] last year. His last A1C is unknown. He denies fever, chills, increased erythema or drainage and has been taking his antibiotics as instructed. Subjective Subjective Calvin returns for follow up of ulcer of lateral left ankle. Ulcer is unchanged but a little less erythema. He has been tolerating treatment with Santyl and Snap vac. Wound culture 01/09/23 was positive for anaerobic bacteria, Pseudomonas, Enterococcus and Klebsiella. He was started on Augmentin and Ciprofloxacin and completed treatment. He had vascular testing and venous insufficiency not identified. ABIs were WNL and not changed from previous. He had CTA with runoff scheduled on 01/21/23 which showed some areas of stenosis in left leg but there was blood flow to dorsalis pedis artery. He had consultation with vascular surgery on 02/02/[address] Gibson prefers to defer any surgical intervention for now as he does not think there is significant arterial disease in his left leg contributing to his difficulty healing. Denies fever, chills, increased drainage or pain. Objective Data Objective Data Vital Signs: Vital Signs Temp Pulse Resp BP O2 Del Method 96.7 F L 80 18 139/81 H Room Air 02/27/23 08:07 02/27/23 08:07 02/27/23 08:07 02/27/23 08:07 02/27/23 08:07 Oxygen Delivery Method Room Air Weight: 112.491 kg Body Mass Index (BMI) 33.1 Physical Exam Const alert, oriented x3 and no apparent distress General Appearance: cooperative and comfortable HEENT normocephalic and head/scalp atraumatic Resp normal respiratory effort Effort and Inspection: able to speak in complete sentences Cardio regular rate and regular rhythm Skin Wounds: wounds noted Wound Narrative: as in clinical panel Psych mental status grossly normal, thought process normal, cooperative and affect normal Debridement Note Debridement Note Wound debrided: left lateral ankle Laterality: Left Wound Grade/Stage: Soler grade 2 Type of Debridement: Excisional debridement Anesthesia Used: 4% Lidocaine Solution, 5% Lidocaine Gel and Cetacaine Depth: Down to and including healthy tissue and in the subcutaneous layer Percentage of wound debrided: 100 Instrument Used: 5mm curette Tissue Removed: Yellow slough, devitalized tissue Severity: Fat Layer Exposed Amount of bleeding with debridement: Mild Bleeding Controlled with: Compression and gauze Patient tolerated procedure: Patient tolerated procedure well Post-Debridement Measurements and Additional Note: Post-Debridement Measurements/Treatment - Nurse 1 - General Ulcer Assessment Start: 02/03/23 14:25 Freq: Status: Active Protocol: AIXA Activity Type Activity Date Activity User E-sign Co-sign Detail Recorded Client Recorded Date Recorded By Document 02/03/23 14:25 MW [id number] 02/03/23 14:32 MW Document 02/06/23 09:33 JF [id number] 02/06/23 09:45 JF Document 02/16/23 08:21 JF Desktop 02/16/23 08:25 JF Document 02/20/23 09:11 DL [id number] 02/20/23 09:19 DL Document 02/27/23 08:07 KW [id number] 02/27/23 08:59 KW 02/03/23 02/06/23 02/16/23 14:25 09:33 08:21 - Today's Visit Information Type of service Nurse-only Follow-up Visit Nurse-only Visit (Physician/COIN MACHINE 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 Visit ) Arrival Mode Ambulatory Ambulatory Ambulatory Transfer Assistance None Accompanied by self Patient Identification Verified (Name & No Yes Yes ) Patient Requires Transmission-Based No No No Precautions Height and Weight Body Mass Index (BMI) 33.1 33.1 33.1 BMI Classification Obese Obese Obese Vital Signs Temperature (97.8 F-99.1 F) 96.8 F L 97.4 F L 97.5 F L Temperature Source Temporal Temporal Temporal Pulse Rate (60-100) 90 84 84 Pulse Location Monitor Monitor Monitor Respiratory Rate (12-18) 16 18 16 Respiratory rate source Observation Observation Observation Oxygen Delivery Method Room Air Blood Pressure (90/60-120/80) 121/69 H 138/83 H 137/85 H Blood Pressure Mean (mm Hg) 86 101 102 Source Monitor Monitor Monitor Position Sitting Semi-Fowlers Semi-Fowlers Blood Pressure Location Left Arm Left Arm Left Arm History Since Last Visit- (Skip if this is Patient's initial visit) Have you changed medications since your No No last visit? Any new allergies or adverse reactions No No Had a fall/change in ADL's that may No No increase risk of falls Signs or symptoms of abuse and/or No No neglect since last visit Have you been in the hospital since your No No last visit? Has dressing in place as prescribed Yes Yes Has compression in place as prescribed Yes Yes Has offloadiing in place as prescribed No N/A Experienced any changes in pain level or No No management Left Footwear Regular Shoe Regular Shoe Regular Shoe Right Footwear Regular Shoe Regular Shoe Regular Shoe Pain Scale: 0-10 Numeric Is Patient Pain Free? Yes Yes Yes 02/20/23 02/27/23 09:11 08:07 WC - Today's Visit Information Type of service Follow-up Visit Follow-up Visit (Physician/COIN MACHINE SERVICER REPAIRER (Physician/COIN MACHINE SERVICER REPAIRER ) ) Arrival Mode Ambulatory Ambulatory Transfer Assistance None Accompanied by Patient Identification Verified (Name & Yes Yes ) Patient Requires Transmission-Based No Precautions Height and Weight Body Mass Index (BMI) 33.1 33.1 BMI Classification Obese Obese Vital Signs Temperature (97.8 F-99.1 F) 97.7 F L 96.7 F L Temperature Source Temporal Temporal Pulse Rate (60-100) 82 80 Pulse Location Monitor Monitor Respiratory Rate (12-18) 20 H 18 Respiratory rate source Observation Observation Oxygen Delivery Method Room Air Blood Pressure (90/60-120/80) 135/78 H 139/81 H Blood Pressure Mean (mm Hg) 97 100 Source Monitor Monitor Position Sitting Blood Pressure Location Right Arm History Since Last Visit- (Skip if this is Patient's initial visit) Have you changed medications since your No No last visit? Any new allergies or adverse reactions No No Had a fall/change in ADL's that may No No increase risk of falls Signs or symptoms of abuse and/or No No neglect since last visit Have you been in the hospital since your No No last visit? Has dressing in place as prescribed Yes Yes Has compression in place as prescribed Yes Yes Has offloadiing in place as prescribed N/A No Experienced any changes in pain level or No No management Left Footwear Regular Shoe Right Footwear Regular Shoe Pain Scale: 0-10 Numeric Is Patient Pain Free? Yes Yes WC - Nurse 1 - General Ulcer Measurement Start: 02/03/23 14:25 Freq: Status: Active Protocol: Activity Type Activity Date Activity User E-sign Co-sign Detail Recorded Client Recorded Date Recorded By Document 02/03/23 14:25 MW [id number] 02/03/23 14:32 MW Document 02/06/23 09:33 JF [id number] 02/06/23 09:45 JF Document 02/16/23 08:21 JF Desktop 02/16/23 08:25 JF Document 02/20/23 09:11 DL [id number] 02/20/23 09:19 DL Document 02/27/23 08:07 KW [id number] 02/27/23 08:59 KW 02/03/23 02/06/23 02/16/23 14:25 09:33 08:21 Wound Center Nurse 1 3. L lateral ankle -Combined with other wound No No -Current Size (cm) - Length 2.0 -Current Size (cm) - Width 1.7 -Current Size (cm) - Depth 0.6 -Total Square Cm 3.40 -Date of Last Picture (Recall this field) -Photo Taken Yes No -Epithelialization None Present None Present -Tunneling No No -Undermining/Tunneling No No -Undermining/Tunneling Starts (O'clock ) -Undermining/Tunneling Ends (O'clock) -Maximum Distance (cm) -Circular Undermining No No -Exudate Amt Medium Medium -Exudate Type Serosanguineous Serosanguineous -Wound Margin Flat & Intact Flat & Intact -Granulation Amt Small (1-33%) None Present (0 %) -Granulation Quality Red -Slough/Fibrin Yes -Necrosis Amt Medium (34-66%) Large (67-100%) -Necrotic Tissue Type Adherent Slough Adherent Slough -Structure Exposed N/A N/A -Texture ([place]-wound Skin Appearance) Assessed Assessed, Assessed Localized Edema -Moisture ([place]-wound Skin Appearance) Assessed Assessed,Dry/ Assessed,Dry/ Scaly Scaly -Color ([place]-wound Skin Appearance) Assessed Assessed Assessed -Temperature ([place]-wound Skin No Abnormality Cool/Cold Appearance) (Pt Warm) -Tenderness on Palpation ([place]-wound No No Skin Appearance) -Ulcer Cleansing Soap and Water Rinsed/ Wound Cleanser Irrigated with Saline -Foul Odor after Cleansing No No No -Anesthetic Used 5% Lidocaine Gel Lower Limb Edema Present No Yes NA Left Calf (cm) 39.5 Left Ankle (cm) 26.5 02/20/23 02/27/23 09:11 08:07 Wound Center Nurse 1 3. L lateral ankle -Combined with other wound -Current Size (cm) - Length 1.8 1.7 -Current Size (cm) - Width 1.7 1.8 -Current Size (cm) - Depth 0.5 0.5 -Total Square Cm 3.06 3.06 -Date of Last Picture (Recall this 02/27/23 field) -Photo Taken Yes -Epithelialization -Tunneling No -Undermining/Tunneling Yes -Undermining/Tunneling Starts (O'clock 11 1 ) -Undermining/Tunneling Ends (O'clock) 2 4 -Maximum Distance (cm) 0.5 0.4 -Circular Undermining -Exudate Amt Medium Small -Exudate Type Serosanguineous Serosanguineous -Wound Margin Distinct, Distinct, Outline Outline Attached Attached -Granulation Amt Small (1-33%) Small (1-33%) -Granulation Quality [place] -Slough/Fibrin -Necrosis Amt Large (67-100%) Small (1-33%) -Necrotic Tissue Type Adherent Slough Adherent Slough -Structure Exposed N/A -Texture ([place]da-wound Skin Appearance) Localized Edema Assessed -Moisture ([place]da-wound Skin Appearance) Maceration Assessed -Color ([place]da-wound Skin Appearance) Erythema Assessed -Temperature ([place]-wound Skin No Abnormality No Abnormality Appearance) (Pt Warm) (Pt Warm) -Tenderness on Palpation ([place]da-wound No Skin Appearance) -Ulcer Cleansing Soap and Water Soap and Water -Foul Odor after Cleansing No -Anesthetic Used 5% Lidocaine 5% Lidocaine Gel Gel Lower Limb Edema Present Left Calf (cm) 38 Left Ankle (cm) 25.3 WC - Nurse 2 - General Ulcer CM Notes Start: 02/03/23 14:25 Freq: Status: Active Protocol: Activity Type Activity Date Activity User E-sign Co-sign Detail Recorded Client Recorded Date Recorded By Document 02/06/23 10:02 MW [id number] 02/06/23 10:26 MW Document 02/20/23 09:47 RB [id number] 02/20/23 10:03 RB Document 02/27/23 08:30 MW [id number] 02/27/23 08:51 MW 02/06/23 02/20/23 02/27/23 10:02 09:47 08:30 Wound Center Nurse 2 3. L lateral ankle -Time 10:03 09:48 08:30 -Correct Patient Yes Yes Yes -Correct Side, Site, Position Yes Yes Yes -Correct Procedure Yes Yes Yes -Procedure Performed Yes Yes Yes -Type of Procedure Debridement Debridement Debridement -Clinical Debridement Subcutaneous Subcutaneous Subcutaneous -Tissue Removed Subcutaneous Subcutaneous Subcutaneous -Post Debridement (cm) - Length 1.9 1.8 1.7 -Post Debridement (cm) - Width 1.7 1.7 1.8 -Post Debridement (cm) - Depth 0.4 0.5 0.5 -Total Square (Post) (cm) 3.23 3.06 3.06 -Area of Debridement (cm) - Length 1.9 1.8 1.7 -Area of Debridement (cm) - Width 1.7 1.7 1.8 -Total Square (Area) (cm) 3.23 3.06 3.06 -Tunneling No No No -Undermining/Tunneling No Yes No -Undermining/Tunneling Starts (O'clock 2 ) -Undermining/Tunneling Ends (O'clock) 4 -Maximum Distance (cm) 0.4 -Circular Undermining No No No -Wound/Ulcer Outcome Not Healed Not Healed Not Healed -Ulcer Cleansing Rinsed/ Rinsed/ Rinsed/ Irrigated with Irrigated with Irrigated with Saline Saline Saline -Foul Odor after Cleansing No No No -Bioengineered Tissue No No Yes -Type of Bioengineered Tissue Epifix 18mm Disc -Expiration Date 11/04/27 -Product Lot Number [id number] -Percent Used 100 -Lot number of Saline Used [id number] -Bleeding Controlled with Pressure NA Pressure -Treatment Response Procedure Procedure Procedure Tolerated Well Tolerated Well Tolerated Well -Offloading No No No -Debridement - Subq, 1st 20sq cm Yes Yes No -Apply Skin Sub - 1st 25 sq cm - Legs 1 -Epifix 18mm Disc 3 Pain Scale: 0-10 Numeric Is Patient Pain Free? Yes Yes Yes WC - Nurse 3 - General Ulcer D/C NN Start: 02/03/23 14:25 Freq: Status: Active Protocol: Activity Type Activity Date Activity User E-sign Co-sign Detail Recorded Client Recorded Date Recorded By Document 02/03/23 14:25 MW [id number] 02/03/23 14:32 MW Document 02/06/23 10:57 RB [id number] 02/06/23 10:59 RB Document 02/16/23 08:21 JF Desktop 02/16/23 08:25 JF Document 02/20/23 10:19 DL [id number] 02/20/23 10:29 DL Document 02/27/23 08:52 MW [id number] 02/27/23 08:53 MW 02/03/23 02/06/23 02/16/23 14:25 10:57 08:21 Vital Signs Temperature (97.8 F-99.1 F) 96.8 F L 97.5 F L Temperature Source Temporal Temporal Pulse Rate (60-100) 90 84 Pulse Location Monitor Monitor Respiratory Rate (12-18) 16 16 Respiratory rate source Observation Observation Oxygen Delivery Method Room Air Blood Pressure (90/60-120/80) 121/69 H 137/85 H Blood Pressure Mean (mm Hg) 86 102 Source Monitor Monitor Position Sitting Semi-Fowlers Blood Pressure Location Left Arm Left Arm Pain Scale: 0-10 Numeric Is Patient Pain Free? Yes Yes Yes Teaching: Wound Center Dressing Your Wound -Person Taught -Teaching Method -Response to teaching Wound Care Center Nurse 3 3. L lateral ankle -Ulcer Cleansing Soap and Water Rinsed/ Irrigated with Saline -Negative Pressure Wound Therapy Continue Continue Continue -Setting (mmHg) 125 125 125 -Negative Pressure is Continuous Continuous Continuous -Primary Dressing Applied -Other Dressing blue foam santyl to wound base before snap application -NPWT Application Charge NPWT </= 50 sq NPWT & NPWT </= 50 sq cm (disp) ($) Debridement (nc cm (disp) ($) ) -Aquacel Extra -Mepilex Border Left -Lotion applied to leg before compression wrap -Tubular Bandage Single Layer Single Layer -Size of Tubigrip Used Size D Size D -Size D ($) 1 0 Treatment Response Procedure Procedure Tolerated Well Tolerated Well WC - Visit Discharge Discharge Condition Stable Stable Stable Ambulatory Status Ambulatory Ambulatory Cane Transportation Private Auto Private Auto Private Auto Accompanied by self Medication Reconcilliation completed & No No Yes provided to patient/care provider Clinical Summary of Care Provided Yes Yes Yes 02/20/23 02/27/23 10:19 08:52 Vital Signs Temperature (97.8 F-99.1 F) Temperature Source Pulse Rate (60-100) Pulse Location Respiratory Rate (12-18) Respiratory rate source Oxygen Delivery Method Blood Pressure (90/60-120/80) Blood Pressure Mean (mm Hg) Source Position Blood Pressure Location Pain Scale: 0-10 Numeric Is Patient Pain Free? Yes Yes Teaching: Wound Center Dressing Your Wound -Person Taught Patient,Family -Teaching Method Discussion, Demonstration -Response to teaching Verbalize understanding Wound Care Center Nurse 3 3. L lateral ankle -Ulcer Cleansing Rinsed/ Not Cleansed Irrigated with Saline -Negative Pressure Wound Therapy Continue -Setting (mmHg) 125 -Negative Pressure is Continuous -Primary Dressing Applied Aquacel Extra, Mepilex Border -Other Dressing -NPWT Application Charge NPWT & Debridement (nc ) -Aquacel Extra 1 -Mepilex Border 1 Left -Lotion applied to leg before No compression wrap -Tubular Bandage Single Layer -Size of Tubigrip Used Size D -Size D ($) 1 Treatment Response Procedure Procedure Tolerated Well Tolerated Well WC - Visit Discharge Discharge Condition Stable Stable Ambulatory Status Ambulatory Ambulatory Transportation Private Auto Private Auto Accompanied by Medication Reconcilliation completed & No No provided to patient/care provider Clinical Summary of Care Provided Yes Yes Assessment/Plan Assessment/Plan (1) Essential hypertension: CODE(S): I10 - Essential (primary) hypertension (2) Uncontrolled type 2 diabetes mellitus with hyperglycemia: CODE(S): E11.65 - Type 2 diabetes mellitus with hyperglycemia (3) Nonhealing nonsurgical wound: CODE(S): T14.8XXA - Other injury of unspecified body region, initial encounter (4) Atherosclerosis of coronary artery of [place] heart without angina pectoris: CODE(S): I25.10 - Atherosclerotic heart disease of [place] coronary artery without angina pectoris QUALIFIERS: Coronary Disease-Associated Artery/Lesion type: [place] artery Qualified Code(s): I25.10 - Atherosclerotic heart disease of [place] coronary artery without angina pectoris (5) Chronic ulcer of left ankle with fat layer exposed: CODE(S): L97.322 - Non-pressure chronic ulcer of left ankle with fat layer exposed (6) Diabetic ulcer of left ankle associated with type 2 diabetes mellitus, with fat layer exposed: CODE(S): E11.622 - Type 2 diabetes mellitus with other skin ulcer; L97.322 - Non-pressure chronic ulcer of left ankle with fat layer exposed (7) Diabetes: CODE(S): E11.9 - Type 2 diabetes mellitus without complications QUALIFIERS: Diabetes mellitus type: type 2 Diabetes mellitus production clerk insulin use: unspecified [facility] insulin use status Diabetes mellitus complication status: with skin complications Diabetes mellitus complication detail: with other skin ulcer Qualified Code(s): E11.622 - Type 2 diabetes mellitus with other skin ulcer; L98.499 - Non-pressure chronic ulcer of skin of other sites with unspecified severity PLAN: Plan Debridement performed today in clinic as annotated above. At home wound-care instructions: Epifix approved and first application applied today per assistant program director guidelines, rehydrated with sterile saline, covered with wound veil and secured with steri-strips. Cover with Aquacel Ag as secondary dressing and guaze and foam dressing. Will have him return on 03/10/23 for nurse visit to reapply snap vac. Keep dressing clean and dry. Will have him use tubigrip compression to left leg to help with edema. Off-loading: The patient was instructed to avoid pressure and friction on the affected areas. Reposition every 2 hours at minimum. Avoid prolonged standing and/or dangling of legs. When seated, feet should be elevated at chest level. Frequent ambulation is encouraged. Diet: Patient encouraged to increase protein intake while taking caution to avoid high carbohydrate and/or sugar intake. Labs/cultures/imaging: Patient pulled up on his phone and PANCHO left ankle in May 2022 was 1.07. Culture 01/09/23 positive for Pseudomonas, Klebsiella, Enterococcus and Anaerobic bacteria. Venous studies unremarkable. PANCHO left ankle 01/14 was 1.37 CTA with run-off done at 01/21/23 and there is some stenosis in the anterior tibial artery but blood flow to dorsalis pedis is present. Follow-up: Return in 2 weeks for wound care follow up. Return sooner or report to the emergency room should symptoms worsen, or new symptoms arise. Note: [employer] speech recognition dynamics ax developer software was used to create portions of this document. Sound-alike and misspelled words, as well as other dynamics ax developer errors may be contained in the documentation.
== END 2023-03-05 23:59 | disposition home or self-care (01) ==
LOC: WC 08:15
PROVIDERS: PCP Family Medicine; Referring Provider Family Medicine; Visit Provider Family Medicine
DX: E11.622 Type 2 diabetes mellitus with other skin ulcer (principal); E11.51 Type 2 diabetes mellitus with diabetic peripheral angiopathy without gangrene; L97.322 Non-pressure chronic ulcer of left ankle with fat layer exposed; E11.65 Type 2 diabetes mellitus with hyperglycemia; E11.610 Type 2 diabetes mellitus with diabetic neuropathic arthropathy; I10 Essential (primary) hypertension; I25.10 Atherosclerotic heart disease of native coronary artery without angina pectoris
CPT/HCPCS: 11042; 15271; 97607; Q4186

== ENCOUNTER 2023-04-03 08:00 | Outpatient (RCR) | payer MEDICARE, OTHER, SELFPAY ==
[2023-03-06 00:19] VITALS: BP 139/81; PULSE 80; RESP 18; TEMP 35.9; BMI 33.1
[2023-03-10 13:23] VITALS: BP 140/83; PULSE 79; RESP 16; TEMP 36.4; BMI 33.1
[2023-03-13 08:28] VITALS: BP 146/79; PULSE 79; RESP 18; TEMP 36.2; BMI 33.1
--- NOTE | 2023-03-13 09:22 | PN.PCM_ITS ---
History of Present Illness Date of Service: 03/13/23 Chief Complaint: non healing ulcer of left lateral malleolus/ankle History of Wound: Be is a 67-year-old white male with type 2 diabetes and a history of poor healing wounds that presents to the wound center today for evaluation and treatment of a nonhealing ulcer of his left lateral ankle/malleolus that started approximately 4 weeks ago. He thinks that his boot was rubbing the area and then noticed that there was drainage and was treating with a bandaid and antibiotic ointment with no improvement and increased drainage and erythema and swelling and then was seen by his PCP who started him on doxycyline and there was still no improvement so he gave him 1 dose of IM Rocephin and then started him on Cephalexin and Bactrim for which he has been taking almost 10 days of treatment and has 5 more days left of medication. He was then referred to the wound center for treatment. He has been covering the wound with gauze and antibiotic ointment but leaving it open to air when he is at home. He appears to have Charcot of the right foot and a collapsed right arch. He has had vascular testing by Dr. 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 His last A1C is unknown. He denies fever, chills, increased erythema or drainage and has been taking his antibiotics as instructed. Subjective Subjective Calvin returns for follow up of ulcer of lateral left ankle. Ulcer is improved in depth and granulation. He tolerated treatment with Epifix and also had snap vac placed on Thursday. He unfortunately had an area on his heel open that had be injured several weeks ago from pressure from new shoes. They have been dressing this with Santyl and gauze. 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 Wound culture 01/09/23 was positive for anaerobic bacteria, Pseudomonas, Enterococcus and Klebsiella. He was started on Augmentin and Ciprofloxacin and completed treatment. He had vascular testing and venous insufficiency not identified. ABIs were WNL and not changed from previous. He had CTA with runoff scheduled on 01/21/23 which showed some areas of stenosis in left leg but there was blood flow to dorsalis pedis artery. He had consultation with vascular surgery on 02/02/[address] Gibson prefers to defer any surgical intervention for now as he does not think there is significant arterial disease in his left leg contributing to his difficulty healing. Denies fever, chills, increased drainage or pain. Objective Data Objective Data Vital Signs: Vital Signs Temp Pulse Resp BP O2 Del Method 97.1 F L 79 18 146/79 H Room Air 03/13/23 08:28 03/13/23 08:28 03/13/23 08:28 03/13/23 08:28 03/13/23 08:28 Oxygen Delivery Method Room Air Weight: 112.491 kg Body Mass Index (BMI) 33.1 Physical Exam Const alert, oriented x3 and no apparent distress General Appearance: cooperative and comfortable HEENT normocephalic and head/scalp atraumatic Resp normal respiratory effort Effort and Inspection: able to speak in complete sentences Cardio regular rate and regular rhythm Skin Wounds: wounds noted Wound Narrative: as in clinical panel Psych mental status grossly normal, thought process normal, cooperative and affect normal Debridement Note Debridement Note Wound debrided: left lateral ankle Laterality: Left Wound Grade/Stage: Soler grade 2 Type of Debridement: Excisional debridement Anesthesia Used: 4% Lidocaine Solution, 5% Lidocaine Gel and Cetacaine Depth: Down to and including healthy tissue and in the subcutaneous layer Percentage of wound debrided: 100 Instrument Used: 5mm curette Tissue Removed: Yellow slough, devitalized tissue Severity: Fat Layer Exposed Amount of bleeding with debridement: Mild Bleeding Controlled with: Compression and gauze Patient tolerated procedure: Patient tolerated procedure well Post-Debridement Measurements and Additional Note: Post-Debridement Measurements/Treatment - Nurse 1 - General Ulcer Assessment Start: 03/10/23 13:23 Freq: Status: Active Protocol: AIXA Activity Type Activity Date Activity User E-sign Co-sign Detail Recorded Client Recorded Date Recorded By Document 03/10/23 13:23 [facility] [id number] 03/10/23 13:26 [facility] Document 03/13/23 08:28 [facility] [id number] 03/13/23 08:32 NH 03/10/23 03/13/23 13:23 08:28 - Today's Visit Information Type of service Nurse-only Initial Visit Visit Arrival Mode Ambulatory Ambulatory Patient Identification Verified (Name & Yes Yes ) Patient Requires Transmission-Based No Precautions Height and Weight Body Mass Index (BMI) 33.1 33.1 BMI Classification Obese Obese Vital Signs Temperature (97.8 F-99.1 F) 97.5 F L 97.1 F L Temperature Source Temporal Oral Pulse Rate (60-100) 79 79 Pulse Location Monitor Monitor Respiratory Rate (12-18) 16 18 Respiratory rate source Observation Observation Oxygen Delivery Method Room Air Room Air Blood Pressure (90/60-120/80) 140/83 H 146/79 H Blood Pressure Mean (mm Hg) 102 101 Source Monitor Monitor Position Sitting Sitting Blood Pressure Location Left Arm Right Arm History Since Last Visit- (Skip if this is Patient's initial visit) Have you changed medications since your No No last visit? Any new allergies or adverse reactions No No Had a fall/change in ADL's that may No No increase risk of falls Signs or symptoms of abuse and/or No No neglect since last visit Have you been in the hospital since your No No last visit? Has dressing in place as prescribed Yes Yes Has compression in place as prescribed Yes Yes Has offloadiing in place as prescribed N/A N/A Experienced any changes in pain level or No No management Left Footwear Regular Shoe Regular Shoe Right Footwear Regular Shoe Regular Shoe Pain Scale: 0-10 Numeric Is Patient Pain Free? Yes Yes WC - Nurse 1 - General Ulcer Measurement Start: 03/10/23 13:23 Freq: Status: Active Protocol: Activity Type Activity Date Activity User E-sign Co-sign Detail Recorded Client Recorded Date Recorded By Document 03/10/23 13:23 [facility] [id number] 03/10/23 13:26 [facility] Document 03/13/23 08:28 [facility] [id number] 03/13/23 08:32 [facility] 03/10/23 03/13/23 13:23 08:28 Wound Center Nurse 1 3. L lateral ankle -Combined with other wound No -Current Size (cm) - Length 1.3 -Current Size (cm) - Width 1.4 -Current Size (cm) - Depth 0.5 -Total Square Cm 1.82 -Photo Taken No -Tunneling No -Undermining/Tunneling No -Circular Undermining No -Exudate Amt Large -Exudate Type Serosanguineous -Wound Margin Thickened & Rolled Under -Granulation Amt Medium (34-66%) -Granulation Quality Pale,[place] -Necrosis Amt Medium (34-66%) -Necrotic Tissue Type Adherent Slough -Texture ([place]-wound Skin Appearance) Assessed -Moisture ([place]da-wound Skin Appearance) Assessed -Color ([place]da-wound Skin Appearance) Assessed -Temperature ([place]-wound Skin No Abnormality Appearance) (Pt Warm) -Tenderness on Palpation ([place]-wound No Skin Appearance) -Ulcer Cleansing Wound Cleanser -Foul Odor after Cleansing No -Anesthetic Used 5% Lidocaine Gel -Wound Comment(s) EPIFIX INTACT Left Calf (cm) 37.5 Left Ankle (cm) 25.5 - Nurse 3 - General Ulcer D/C NN Start: 03/10/23 13:23 Freq: Status: Active Protocol: Activity Type Activity Date Activity User E-sign Co-sign Detail Recorded Client Recorded Date Recorded By Document 03/10/23 13:23 [facility] [id number] 03/10/23 13:26 [facility] Document 03/13/23 09:11 RB Desktop 03/13/23 09:12 RB 03/10/23 03/13/23 13:23 09:11 Vital Signs Temperature (97.8 F-99.1 F) 97.5 F L Temperature Source Temporal Pulse Rate (60-100) 79 Pulse Location Monitor Respiratory Rate (12-18) 16 Respiratory rate source Observation Oxygen Delivery Method Room Air Blood Pressure (90/60-120/80) 140/83 H Blood Pressure Mean (mm Hg) 102 Source Monitor Position Sitting Blood Pressure Location Left Arm Pain Scale: 0-10 Numeric Is Patient Pain Free? Yes Yes Wound Care Center Nurse 3 3. L lateral ankle -Ulcer Cleansing Rinsed/ Irrigated with Saline -Negative Pressure Wound Therapy Start -Setting (mmHg) 125 -Negative Pressure is Continuous -Primary Dressing Applied Aquacel Extra -Other Dressing EPIFIX LEFT INTACT -Primary Dressing Covered/Secured with Dry Gauze,Dry Gauze & Roll Gauze,Secured with Tape -Other Covering REAPPLIED SNAP VAC -NPWT Application Charge NPWT </= 50 sq cm (disp) ($) -Aquacel Extra 1 Left -Tubular Bandage Single Layer -Size of Tubigrip Used Size D -Size D ($) 1 -Other REAPPLIED PTS SINGLE LAYER TUBI Treatment Response Procedure Procedure Tolerated Well Tolerated Well WC - Visit Discharge Discharge Condition Stable Stable Ambulatory Status Ambulatory Ambulatory Transportation Private Auto Private Auto Medication Reconcilliation completed & No provided to patient/care provider Clinical Summary of Care Provided Yes Additional Wound Wound debrided: left heel Laterality: Left Wound Grade/Stage: Soler Grade 2 Type of Debridement: Excisional debridement Anesthesia Used: 4% Lidocaine Solution and 5% Lidocaine Gel Depth: Down to and including healthy tissue and in the subcutaneous layer Percentage of wound debrided: 100 Instrument Used: 5mm curette Tissue Removed: Yellow slough, devitalized tissue Severity: Fat Layer Exposed Amount of bleeding with debridement: Mild Bleeding Controlled with: Compression and gauze Patient tolerated procedure: Patient tolerated procedure well Assessment/Plan Assessment/Plan (1) Essential hypertension: CODE(S): I10 - Essential (primary) hypertension (2) Uncontrolled type 2 diabetes mellitus with hyperglycemia: CODE(S): E11.65 - Type 2 diabetes mellitus with hyperglycemia (3) Nonhealing nonsurgical wound: CODE(S): T14.8XXA - Other injury of unspecified body region, initial encounter (4) Atherosclerosis of coronary artery of [place] heart without angina pectoris: CODE(S): I25.10 - Atherosclerotic heart disease of [place] coronary artery without angina pectoris QUALIFIERS: Coronary Disease-Associated Artery/Lesion type: [place] artery Qualified Code(s): I25.10 - Atherosclerotic heart disease of [place] coronary artery without angina pectoris (5) Chronic ulcer of left ankle with fat layer exposed: CODE(S): L97.322 - Non-pressure chronic ulcer of left ankle with fat layer exposed (6) Diabetic ulcer of left ankle associated with type 2 diabetes mellitus, with fat layer exposed: CODE(S): E11.622 - Type 2 diabetes mellitus with other skin ulcer; L97.322 - Non-pressure chronic ulcer of left ankle with fat layer exposed (7) Diabetes: CODE(S): E11.9 - Type 2 diabetes mellitus without complications QUALIFIERS: Diabetes mellitus complication detail: with other skin ulcer Diabetes mellitus complication status: with skin complications 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 At home wound-care instructions: Epifix #2 applied today per research and development engineer guidelines, rehydrated with sterile saline, covered with wound veil and secured with steri-strips. Cover with Aquacel Ag as secondary dressing and guaze and foam dressing. Will have him use Santyl and foam dressing to his heel ulcer changed daily. Keep dressing clean and dry. Will have him use tubigrip compression to left leg to help with edema. Off-loading: The patient was instructed to avoid pressure and friction on the affected areas. Reposition every 2 hours at minimum. Avoid prolonged standing and/or dangling of legs. When seated, feet should be elevated at chest level. Frequent ambulation is encouraged. Diet: Patient encouraged to increase protein intake while taking caution to avoid high carbohydrate and/or sugar intake. Labs/cultures/imaging: Patient pulled up on his phone and PANCHO left ankle in May 2022 was 1.07. Culture 01/09/23 positive for Pseudomonas, Klebsiella, Enterococcus and Anaerobic bacteria. Venous studies unremarkable. PANCHO left ankle 01/14 was 1.37 CTA with run-off done at 01/21/23 and there is some stenosis in the anterior tib ial artery but blood flow to dorsalis pedis is present. Follow-up: Return in 1 week for wound care follow up. Return sooner or report to the emergency room should symptoms worsen, or new symptoms arise. Note: [employer] speech recognition ancillary specialist software was used to create portions of this document. Sound-alike and misspelled words, as well as other ancillary specialist errors may be contained in the documentation.
[2023-03-20 08:05] VITALS: BP 132/74; RESP 18; TEMP 35.8; BMI 33.1
--- NOTE | 2023-03-20 09:24 | PCM.WC.PN ---
History of Present Illness Date of Service: 03/20/23 Chief Complaint: non healing ulcer of left lateral malleolus/ankle History of Wound: Be is a 67-year-old white male with type 2 diabetes and a history of poor healing wounds that presents to the wound center today for evaluation and treatment of a nonhealing ulcer of his left lateral ankle/malleolus that started approximately 4 weeks ago. He thinks that his boot was rubbing the area and then noticed that there was drainage and was treating with a bandaid and antibiotic ointment with no improvement and increased drainage and erythema and swelling and then was seen by his PCP who started him on doxycyline and there was still no improvement so he gave him 1 dose of IM Rocephin and then started him on Cephalexin and Bactrim for which he has been taking almost 10 days of treatment and has 5 more days left of medication. He was then referred to the wound center for treatment. He has been covering the wound with gauze and antibiotic ointment but leaving it open to air when he is at home. He appears to have Charcot of the right foot and a collapsed right arch. He has had vascular testing by Dr. 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 His last A1C is unknown. He denies fever, chills, increased erythema or drainage and has been taking his antibiotics as instructed. Subjective Subjective Calvin returns for follow up of ulcer of lateral left ankle. Ulcer is improved in depth and granulation. He tolerated treatment with Epifix but had increased pain. He unfortunately had an area on his heel open that had be injured several weeks ago from pressure from new shoes. They have been dressing this with Santyl and gauze. Calvin's clinical assessment manager stopped his hydroxyurea due to the potential of this being a factor to his delayed wound healing. Wound culture 01/09/23 was positive for anaerobic bacteria, Pseudomonas, Enterococcus and Klebsiella. He was started on Augmentin and Ciprofloxacin and completed treatment. He had vascular testing and venous insufficiency not identified. ABIs were WNL and not changed from previous. He had CTA with runoff scheduled on 01/21/23 which showed some areas of stenosis in left leg but there was blood flow to dorsalis pedis artery. He had consultation with vascular surgery on 02/02/[address] Gibson prefers to defer any surgical intervention for now as he does not think there is significant arterial disease in his left leg contributing to his difficulty healing. Denies fever, chills, increased drainage or pain. Objective Data Objective Data Vital Signs: Vital Signs Temp Pulse Resp BP O2 Del Method 96.5 F L 79 18 132/74 H Room Air 03/20/23 08:05 03/13/23 08:28 03/20/23 08:05 03/20/23 08:05 03/13/23 08:28 Oxygen Delivery Method Room Air Weight: 112.491 kg Body Mass Index (BMI) 33.1 Physical Exam Const alert, oriented x3 and no apparent distress General Appearance: cooperative and comfortable HEENT normocephalic and head/scalp atraumatic Resp normal respiratory effort Effort and Inspection: able to speak in complete sentences Cardio regular rate and regular rhythm Skin Wounds: wounds noted Wound Narrative: as in clinical panel Psych mental status grossly normal, thought process normal, cooperative and affect normal Debridement Note Debridement Note Wound debrided: left lateral ankle Laterality: Left Wound Grade/Stage: Soler grade 2 Type of Debridement: Excisional debridement Anesthesia Used: 4% Lidocaine Solution, 5% Lidocaine Gel and Cetacaine Depth: Down to and including healthy tissue and in the subcutaneous layer Percentage of wound debrided: 100 Instrument Used: 5mm curette Tissue Removed: Yellow slough, devitalized tissue Severity: Fat Layer Exposed Amount of bleeding with debridement: Mild Bleeding Controlled with: Compression and gauze Patient tolerated procedure: Patient tolerated procedure well Post-Debridement Measurements and Additional Note: Post-Debridement Measurements/Treatment DOMINIQUE - Nurse 1 - General Ulcer Assessment Start: 03/10/23 13:23 Freq: Status: Active Protocol: AIXA Activity Type Activity Date Activity User E-sign Co-sign Detail Recorded Client Recorded Date Recorded By Document 03/10/23 13:23 [facility] [id number] 03/10/23 13:26 BM Document 03/13/23 08:28 MT [id number] 03/13/23 08:32 MT Document 03/20/23 08:05 DL [id number] 03/20/23 08:15 DL 03/10/23 03/13/23 03/20/23 13:23 08:28 08:05 - Today's Visit Information Type of service Nurse-only Initial Visit Follow-up Visit Visit (Physician/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 COLLECTOR ) Arrival Mode Ambulatory Ambulatory Ambulatory Transfer Assistance None Patient Identification Verified (Name & Yes Yes Yes ) Patient Requires Transmission-Based No No Precautions Height and Weight Body Mass Index (BMI) 33.1 33.1 33.1 BMI Classification Obese Obese Obese Vital Signs Temperature (97.8 F-99.1 F) 97.5 F L 97.1 F L 96.5 F L Temperature Source Temporal Oral Temporal Pulse Rate (60-100) 79 79 Pulse Location Monitor Monitor Respiratory Rate (12-18) 16 18 18 Respiratory rate source Observation Observation Observation Oxygen Delivery Method Room Air Room Air Blood Pressure (90/60-120/80) 140/83 H 146/79 H 132/74 H Blood Pressure Mean (mm Hg) 102 101 93 Source Monitor Monitor Monitor Position Sitting Sitting Blood Pressure Location Left Arm Right Arm History Since Last Visit- (Skip if this is Patient's initial visit) Have you changed medications since your No No No last visit? Any new allergies or adverse reactions No No No Had a fall/change in ADL's that may No No No increase risk of falls Signs or symptoms of abuse and/or No No No neglect since last visit Have you been in the hospital since your No No No last visit? Has dressing in place as prescribed Yes Yes Yes Has compression in place as prescribed Yes Yes Yes Has offloadiing in place as prescribed N/A N/A N/A Experienced any changes in pain level or No No No management Left Footwear Regular Shoe Regular Shoe Right Footwear Regular Shoe Regular Shoe Pain Scale: 0-10 Numeric Is Patient Pain Free? Yes Yes Yes WC - Nurse 1 - General Ulcer Measurement Start: 03/10/23 13:23 Freq: Status: Active Protocol: Activity Type Activity Date Activity User E-sign Co-sign Detail Recorded Client Recorded Date Recorded By Document 03/10/23 13:23 [facility] [id number] 03/10/23 13:26 [facility] Document 03/13/23 08:28 MT [id number] 03/13/23 08:32 MT Document 03/20/23 08:05 DL [id number] 03/20/23 08:15 DL 03/10/23 03/13/23 03/20/23 13:23 08:28 08:05 Wound Center Nurse 1 #4 Left Heel -Current Size (cm) - Length 0.5 -Current Size (cm) - Width 1.6 -Current Size (cm) - Depth 0.2 -Total Square Cm 0.80 -Exudate Amt Medium -Exudate Type Serosanguineous -Wound Margin Distinct, Outline Attached -Granulation Amt Large (67-100%) -Granulation Quality Red -Necrosis Amt Small (1-33%) -Necrotic Tissue Type Adherent Slough -Structure Exposed N/A -Texture ([place]-wound Skin Appearance) Scarring -Moisture ([place]-wound Skin Appearance) Maceration -Color ([place]-wound Skin Appearance) No Abnormality -Temperature ([place]-wound Skin No Abnormality Appearance) (Pt Warm) -Tenderness on Palpation ([place]-wound No Skin Appearance) -Ulcer Cleansing Soap and Water -Foul Odor after Cleansing No -Anesthetic Used 5% Lidocaine Gel 3. L lateral ankle -Combined with other wound No -Current Size (cm) - Length 1.3 1.2 -Current Size (cm) - Width 1.4 1 -Current Size (cm) - Depth 0.5 0.5 -Total Square Cm 1.82 1.2 -Photo Taken No -Tunneling No -Undermining/Tunneling No -Circular Undermining No -Exudate Amt Large Medium -Exudate Type Serosanguineous Serosanguineous -Wound Margin Thickened & Distinct, Rolled Under Outline Attached -Granulation Amt Medium (34-66%) Small (1-33%) -Granulation Quality Pale,[place] Red -Necrosis Amt Medium (34-66%) Large (67-100%) -Necrotic Tissue Type Adherent Slough Adherent Slough -Structure Exposed N/A -Texture ([place]-wound Skin Appearance) Assessed Scarring -Moisture ([place]-wound Skin Appearance) Assessed Dry/Scaly -Color ([place]-wound Skin Appearance) Assessed No Abnormality -Temperature ([place]-wound Skin No Abnormality No Abnormality Appearance) (Pt Warm) (Pt Warm) -Tenderness on Palpation ([place]-wound No No Skin Appearance) -Ulcer Cleansing Wound Cleanser Soap and Water -Foul Odor after Cleansing No No -Anesthetic Used 5% Lidocaine 5% Lidocaine Gel Gel -Wound Comment(s) EPIFIX INTACT Left Calf (cm) 37.5 37.5 Left Ankle (cm) 25.5 24.5 WC - Nurse 2 - General Ulcer CM Notes Start: 03/10/23 13:23 Freq: Status: Active Protocol: Activity Type Activity Date Activity User E-sign Co-sign Detail Recorded Client Recorded Date Recorded By Document 03/13/23 12:36 PL [id number] 03/13/23 12:39 PL 03/13/23 12:36 Wound Center Nurse 2 #4 Left Heel -Time 08:27 -Correct Patient Yes -Correct Side, Site, Position Yes -Correct Procedure Yes -Procedure Performed Yes -Type of Procedure Debridement -Clinical Debridement Subcutaneous -Tissue Removed Subcutaneous -Post Debridement (cm) - Length 0.7 -Post Debridement (cm) - Width 1.3 -Post Debridement (cm) - Depth 0.2 -Total Square (Post) (cm) 0.91 -Area of Debridement (cm) - Length 0.7 -Area of Debridement (cm) - Width 1.3 -Total Square (Area) (cm) 0.91 -Tunneling No -Undermining/Tunneling No -Circular Undermining No -Wound/Ulcer Outcome Not Healed -Ulcer Cleansing Rinsed/ Irrigated with Saline -Foul Odor after Cleansing No -Bioengineered Tissue No -Bleeding Controlled with Pressure -Treatment Response Procedure Tolerated Well -Debridement - Subq, 1st 20sq cm Yes 3. L lateral ankle -Time 08:27 -Correct Patient Yes -Correct Side, Site, Position Yes -Correct Procedure Yes -Procedure Performed Yes -Type of Procedure Debridement -Clinical Debridement Subcutaneous -Tissue Removed Subcutaneous -Post Debridement (cm) - Length 1.8 -Post Debridement (cm) - Width 1.7 -Post Debridement (cm) - Depth 0.4 -Total Square (Post) (cm) 3.06 -Area of Debridement (cm) - Length 1.8 -Area of Debridement (cm) - Width 1.7 -Total Square (Area) (cm) 3.06 -Tunneling No -Undermining/Tunneling No -Circular Undermining No -Wound/Ulcer Outcome Not Healed -Ulcer Cleansing Rinsed/ Irrigated with Saline -Foul Odor after Cleansing No -Bioengineered Tissue Yes -Type of Bioengineered Tissue Epifix 18mm Disc -Expiration Date 12/05/27 -Product Lot Number [id number] -Percent Used 100 -Bleeding Controlled with Pressure -Treatment Response Procedure Tolerated Well -Debridement - Subq, 1st 20sq cm No -Apply Skin Sub - 1st 25 sq cm - Legs 1 -Epifix 18mm Disc 3 Pain Scale: 0-10 Numeric Is Patient Pain Free? Yes - Nurse 3 - General Ulcer D/C NN Start: 03/10/23 13:23 Freq: Status: Active Protocol: Activity Type Activity Date Activity User E-sign Co-sign Detail Recorded Client Recorded Date Recorded By Document 03/10/23 13:23 [facility] [id number] 03/10/23 13:26 BM Document 03/13/23 09:11 RB Desktop 03/13/23 09:12 RB Edit Result 03/13/23 09:11 RB (1) Desktop 03/13/23 09:46 RB (1) Notes: => hydrogel and foam dressing to L heel 03/10/23 03/13/23 13:23 09:11 Vital Signs Temperature (97.8 F-99.1 F) 97.5 F L Temperature Source Temporal Pulse Rate (60-100) 79 Pulse Location Monitor Respiratory Rate (12-18) 16 Respiratory rate source Observation Oxygen Delivery Method Room Air Blood Pressure (90/60-120/80) 140/83 H Blood Pressure Mean (mm Hg) 102 Source Monitor Position Sitting Blood Pressure Location Left Arm Pain Scale: 0-10 Numeric Is Patient Pain Free? Yes Yes Wound Care Center Nurse 3 3. L lateral ankle -Ulcer Cleansing Rinsed/ Irrigated with Saline -Negative Pressure Wound Therapy Start -Setting (mmHg) 125 -Negative Pressure is Continuous -Primary Dressing Applied Aquacel Extra -Other Dressing EPIFIX LEFT INTACT -Primary Dressing Covered/Secured with Dry Gauze,Dry Gauze & Roll Gauze,Secured with Tape -Other Covering REAPPLIED SNAP VAC -NPWT Application Charge NPWT </= 50 sq cm (disp) ($) -Aquacel Extra 1 Left -Tubular Bandage Single Layer -Size of Tubigrip Used Size D -Size D ($) 1 -Other REAPPLIED PTS SINGLE LAYER TUBI Treatment Response Procedure Procedure Tolerated Well Tolerated Well WC - Visit Discharge Discharge Condition Stable Stable Ambulatory Status Ambulatory Ambulatory Transportation Private Auto Private Auto Medication Reconcilliation completed & No provided to patient/care provider Clinical Summary of Care Provided Yes Notes: hydrogel and foam dressing to L heel Additional Wound Wound debrided: left heel Laterality: Left Wound Grade/Stage: Soler Grade 2 Type of Debridement: Excisional debridement Anesthesia Used: 4% Lidocaine Solution and 5% Lidocaine Gel Depth: Down to and including healthy tissue and in the subcutaneous layer Percentage of wound debrided: 100 Instrument Used: 5mm curette Tissue Removed: Yellow slough, devitalized tissue Severity: Fat Layer Exposed Amount of bleeding with debridement: Mild Bleeding Controlled with: Compression and gauze Patient tolerated procedure: Patient tolerated procedure well Assessment/Plan Assessment/Plan (1) Essential hypertension: CODE(S): I10 - Essential (primary) hypertension (2) Uncontrolled type 2 diabetes mellitus with hyperglycemia: CODE(S): E11.65 - Type 2 diabetes mellitus with hyperglycemia (3) Nonhealing nonsurgical wound: CODE(S): T14.8XXA - Other injury of unspecified body region, initial encounter (4) Atherosclerosis of coronary artery of [place] heart without angina pectoris: CODE(S): I25.10 - Atherosclerotic heart disease of [place] coronary artery without angina pectoris QUALIFIERS: Coronary Disease-Associated Artery/Lesion type: [place] artery Qualified Code(s): I25.10 - Atherosclerotic heart disease of [place] coronary artery without angina pectoris (5) Chronic ulcer of left ankle with fat layer exposed: CODE(S): L97.322 - Non-pressure chronic ulcer of left ankle with fat layer exposed (6) Diabetic ulcer of left ankle associated with type 2 diabetes mellitus, with fat layer exposed: CODE(S): E11.622 - Type 2 diabetes mellitus with other skin ulcer; L97.322 - Non-pressure chronic ulcer of left ankle with fat layer exposed (7) Diabetes: CODE(S): E11.9 - Type 2 diabetes mellitus without complications QUALIFIERS: Diabetes mellitus type: type 2 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 At home wound-care instructions: Epifix #3 applied today per bologna lacer guidelines, rehydrated with sterile saline, covered with wound veil and secured with steri-strips. Snap Vac applied a secondary dressing. Will have him use Santyl and foam dressing to his heel ulcer changed daily. Keep dressing clean and dry. Will have him use tubigrip compression to left leg to help with edema. Off-loading: The patient was instructed to avoid pressure and friction on the affected areas. Reposition every 2 hours at minimum. Avoid prolonged standing and/or dangling of legs. When seated, feet should be elevated at chest level. Frequent ambulation is encouraged. Diet: Patient encouraged to increase protein intake while taking caution to avoid high carbohydrate and/or sugar intake. Labs/cultures/imaging: Patient pulled up on his phone and PANCHO left ankle in May 2022 was 1.07. Culture 01/09/23 positive for Pseudomonas, Klebsiella, Enterococcus and Anaerobic bacteria. Venous studies unremarkable. PANCHO left ankle 01/14 was 1.37 CTA with run-off done at 01/21/23 and there is some stenosis in the anterior tibial artery but blood flow to dorsalis pedis is present. Follow-up: Return in 1 week for wound care follow up. Return sooner or report to the emergency room should symptoms worsen, or new symptoms arise. Note: [employer] speech recognition cooking appliance repair technician software was used to create portions of this document. Sound-alike and misspelled words, as well as other cooking appliance repair technician errors may be contained in the documentation.
[2023-03-27 08:07] VITALS: BP 140/83; PULSE 78; RESP 18; TEMP 36.3; BMI 33.1
--- NOTE | 2023-03-27 08:58 | PCM.WC.PN ---
History of Present Illness Date of Service: 03/27/23 Chief Complaint: non healing ulcer of left lateral malleolus/ankle History of Wound: Be is a 67-year-old white male with type 2 diabetes and a history of poor healing wounds that presents to the wound center today for evaluation and treatment of a nonhealing ulcer of his left lateral ankle/malleolus that started approximately 4 weeks ago. He thinks that his boot was rubbing the area and then noticed that there was drainage and was treating with a bandaid and antibiotic ointment with no improvement and increased drainage and erythema and swelling and then was seen by his PCP who started him on doxycyline and there was still no improvement so he gave him 1 dose of IM Rocephin and then started him on Cephalexin and Bactrim for which he has been taking almost 10 days of treatment and has 5 more days left of medication. He was then referred to the wound center for treatment. He has been covering the wound with gauze and antibiotic ointment but leaving it open to air when he is at home. He appears to have Charcot of the right foot and a collapsed right arch. He has had vascular testing by Dr. Flores his compo caster at the [facility] last year. His last A1C is unknown. He denies fever, chills, increased erythema or drainage and has been taking his antibiotics as instructed. Subjective Subjective Calvin returns for follow up of ulcer of lateral left ankle. Ulcer is improved in depth and granulation. He tolerated treatment with Epifix and snap vac. His heel is improving and he is tolerating dressing this with Santyl and gauze. 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 Wound culture 01/09/23 was positive for anaerobic bacteria, Pseudomonas, Enterococcus and Klebsiella. He was started on Augmentin and Ciprofloxacin and completed treatment. He had vascular testing and venous insufficiency not identified. ABIs were WNL and not changed from previous. He had CTA with runoff scheduled on 01/21/23 which showed some areas of stenosis in left leg but there was blood flow to dorsalis pedis artery. He had consultation with vascular surgery on 02/02/[address] Gibson prefers to defer any surgical intervention for now as he does not think there is significant arterial disease in his left leg contributing to his difficulty healing. Denies fever, chills, increased drainage or pain. Objective Data Objective Data Vital Signs: Vital Signs Temp Pulse Resp BP O2 Del Method 97.4 F L 78 18 140/83 H Room Air 03/27/23 08:07 03/27/23 08:07 03/27/23 08:07 03/27/23 08:07 03/13/23 08:28 Oxygen Delivery Method Room Air Weight: 112.491 kg Body Mass Index (BMI) 33.1 Physical Exam Const alert, oriented x3 and no apparent distress General Appearance: cooperative and comfortable HEENT normocephalic and head/scalp atraumatic Resp normal respiratory effort Effort and Inspection: able to speak in complete sentences Cardio regular rate and regular rhythm Skin Wounds: wounds noted Wound Narrative: as in clinical panel Psych mental status grossly normal, thought process normal, cooperative and affect normal Debridement Note Debridement Note Wound debrided: left lateral ankle Laterality: Left Wound Grade/Stage: Soler grade 2 Type of Debridement: Excisional debridement Anesthesia Used: 4% Lidocaine Solution, 5% Lidocaine Gel and Cetacaine Depth: Down to and including healthy tissue and in the subcutaneous layer Percentage of wound debrided: 100 Instrument Used: 5mm curette Tissue Removed: Yellow slough, devitalized tissue Severity: Fat Layer Exposed Amount of bleeding with debridement: Mild Bleeding Controlled with: Compression and gauze Patient tolerated procedure: Patient tolerated procedure well Post-Debridement Measurements and Additional Note: Post-Debridement Measurements/Treatment - Nurse 1 - General Ulcer Assessment Start: 03/10/23 13:23 Freq: Status: Active Protocol: AIXA Activity Type Activity Date Activity User E-sign Co-sign Detail Recorded Client Recorded Date Recorded By Document 03/10/23 13:23 [facility] [id number] 03/10/23 13:26 BM Document 03/13/23 08:28 MT [id number] 03/13/23 08:32 MT Document 03/20/23 08:05 DL [id number] 03/20/23 08:15 DL Document 03/27/23 08:07 RB Desktop 03/27/23 08:22 RB 03/10/23 03/13/23 03/20/23 13:23 08:28 08:05 - Today's Visit Information Type of service Nurse-only Initial Visit Follow-up Visit 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 ) Arrival Mode Ambulatory Ambulatory Ambulatory Transfer Assistance None Patient Identification Verified (Name & Yes Yes Yes ) Patient Requires Transmission-Based No No Precautions Height and Weight Body Mass Index (BMI) 33.1 33.1 33.1 BMI Classification Obese Obese Obese Vital Signs Temperature (97.8 F-99.1 F) 97.5 F L 97.1 F L 96.5 F L Temperature Source Temporal Oral Temporal Pulse Rate (60-100) 79 79 Pulse Location Monitor Monitor Respiratory Rate (12-18) 16 18 18 Respiratory rate source Observation Observation Observation Oxygen Delivery Method Room Air Room Air Blood Pressure (90/60-120/80) 140/83 H 146/79 H 132/74 H Blood Pressure Mean (mm Hg) 102 101 93 Source Monitor Monitor Monitor Position Sitting Sitting Blood Pressure Location Left Arm Right Arm History Since Last Visit- (Skip if this is Patient's initial visit) Have you changed medications since your No No No last visit? Any new allergies or adverse reactions No No No Had a fall/change in ADL's that may No No No increase risk of falls Signs or symptoms of abuse and/or No No No neglect since last visit Have you been in the hospital since your No No No last visit? Has dressing in place as prescribed Yes Yes Yes Has compression in place as prescribed Yes Yes Yes Has offloadiing in place as prescribed N/A N/A N/A Experienced any changes in pain level or No No No management Left Footwear Regular Shoe Regular Shoe Right Footwear Regular Shoe Regular Shoe Pain Scale: 0-10 Numeric Is Patient Pain Free? 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 ) Arrival Mode Ambulatory Transfer Assistance None Patient Identification Verified (Name & Yes ) Patient Requires Transmission-Based Precautions Height and Weight Body Mass Index (BMI) 33.1 BMI Classification Obese Vital Signs Temperature (97.8 F-99.1 F) 97.4 F L Temperature Source Temporal Pulse Rate (60-100) 78 Pulse Location Monitor Respiratory Rate (12-18) 18 Respiratory rate source Observation Oxygen Delivery Method Blood Pressure (90/60-120/80) 140/83 H Blood Pressure Mean (mm Hg) 102 Source Monitor Position Semi-Fowlers Blood Pressure Location Left Arm History Since Last Visit- (Skip if this is Patient's initial visit) Have you changed medications since your No last visit? Any new allergies or adverse reactions No Had a fall/change in ADL's that may No increase risk of falls Signs or symptoms of abuse and/or No neglect since last visit Have you been in the hospital since your No last visit? Has dressing in place as prescribed Yes Has compression in place as prescribed Yes Has offloadiing in place as prescribed No Experienced any changes in pain level or No management Left Footwear Right Footwear Pain Scale: 0-10 Numeric Is Patient Pain Free? Yes WC - Nurse 1 - General Ulcer Measurement Start: 03/10/23 13:23 Freq: Status: Active Protocol: Activity Type Activity Date Activity User E-sign Co-sign Detail Recorded Client Recorded Date Recorded By Document 03/10/23 13:23 [facility] [id number] 03/10/23 13:26 [facility] Document 03/13/23 08:28 MT [id number] 03/13/23 08:32 MT Document 03/20/23 08:05 DL [id number] 03/20/23 08:15 DL Document 03/27/23 08:07 RB Desktop 03/27/23 08:22 RB 03/10/23 03/13/23 03/20/23 13:23 08:28 08:05 Wound Center Nurse 1 #4 Left Heel -Combined with other wound -Current Size (cm) - Length 0.5 -Current Size (cm) - Width 1.6 -Current Size (cm) - Depth 0.2 -Total Square Cm 0.80 -Photo Taken -Tunneling -Undermining/Tunneling -Circular Undermining -Exudate Amt Medium -Exudate Type Serosanguineous -Wound Margin Distinct, Outline Attached -Granulation Amt Large (67-100%) -Granulation Quality Red -Slough/Fibrin -Necrosis Amt Small (1-33%) -Necrotic Tissue Type Adherent Slough -Structure Exposed N/A -Texture ([place]-wound Skin Appearance) Scarring -Moisture ([place]-wound Skin Appearance) Maceration -Color ([place]-wound Skin Appearance) No Abnormality -Temperature ([place]-wound Skin No Abnormality Appearance) (Pt Warm) -Tenderness on Palpation ([place]-wound No Skin Appearance) -Ulcer Cleansing Soap and Water -Foul Odor after Cleansing No -Anesthetic Used 5% Lidocaine Gel 3. L lateral ankle -Combined with other wound No -Current Size (cm) - Length 1.3 1.2 -Current Size (cm) - Width 1.4 1 -Current Size (cm) - Depth 0.5 0.5 -Total Square Cm 1.82 1.2 -Photo Taken No -Tunneling No -Undermining/Tunneling No -Circular Undermining No -Exudate Amt Large Medium -Exudate Type Serosanguineous Serosanguineous -Wound Margin Thickened & Distinct, Rolled Under Outline Attached -Granulation Amt Medium (34-66%) Small (1-33%) -Granulation Quality Pale,[place] Red -Slough/Fibrin -Necrosis Amt Medium (34-66%) Large (67-100%) -Necrotic Tissue Type Adherent Slough Adherent Slough -Structure Exposed N/A -Texture ([place]-wound Skin Appearance) Assessed Scarring -Moisture ([place]-wound Skin Appearance) Assessed Dry/Scaly -Color ([place]-wound Skin Appearance) Assessed No Abnormality -Temperature ([place]-wound Skin No Abnormality No Abnormality Appearance) (Pt Warm) (Pt Warm) -Tenderness on Palpation ([place]-wound No No Skin Appearance) -Ulcer Cleansing Wound Cleanser Soap and Water -Foul Odor after Cleansing No No -Anesthetic Used 5% Lidocaine 5% Lidocaine Gel Gel -Wound Comment(s) EPIFIX INTACT Lower Limb Edema Present Left Calf (cm) 37.5 37.5 Left Ankle (cm) 25.5 24.5 03/27/23 08:07 Wound Center Nurse 1 #4 Left Heel -Combined with other wound No -Current Size (cm) - Length 0.3 -Current Size (cm) - Width 1.1 -Current Size (cm) - Depth 0.1 -Total Square Cm 0.33 -Photo Taken Yes -Tunneling No -Undermining/Tunneling No -Circular Undermining No -Exudate Amt Medium -Exudate Type Serosanguineous -Wound Margin Fibrotic Scar, Thickened Scar -Granulation Amt Medium (34-66%) -Granulation Quality [place] -Slough/Fibrin Yes -Necrosis Amt Medium (34-66%) -Necrotic Tissue Type Adherent Slough -Structure Exposed N/A -Texture ([place]-wound Skin Appearance) Assessed -Moisture ([place]-wound Skin Appearance) Maceration -Color ([place]-wound Skin Appearance) Assessed -Temperature ([place]-wound Skin No Abnormality Appearance) (Pt Warm) -Tenderness on Palpation ([place]-wound No Skin Appearance) -Ulcer Cleansing Wound Cleanser -Foul Odor after Cleansing No -Anesthetic Used 5% Lidocaine Gel 3. L lateral ankle -Combined with other wound No -Current Size (cm) - Length 1.3 -Current Size (cm) - Width 0.9 -Current Size (cm) - Depth 0.4 -Total Square Cm 1.17 -Photo Taken -Tunneling No -Undermining/Tunneling No -Circular Undermining No -Exudate Amt Medium -Exudate Type Serosanguineous -Wound Margin Distinct, Outline Attached -Granulation Amt Medium (34-66%) -Granulation Quality [place] -Slough/Fibrin Yes -Necrosis Amt Medium (34-66%) -Necrotic Tissue Type Adherent Slough -Structure Exposed N/A -Texture ([place]-wound Skin Appearance) Assessed -Moisture ([place]-wound Skin Appearance) Maceration -Color ([place]-wound Skin Appearance) Assessed, Erythema -Temperature ([place]-wound Skin No Abnormality Appearance) (Pt Warm) -Tenderness on Palpation ([place]-wound No Skin Appearance) -Ulcer Cleansing Wound Cleanser -Foul Odor after Cleansing No -Anesthetic Used 5% Lidocaine Gel -Wound Comment(s) Lower Limb Edema Present Yes Left Calf (cm) 37.2 Left Ankle (cm) 25.5 WC - Nurse 2 - General Ulcer CM Notes Start: 03/10/23 13:23 Freq: Status: Active Protocol: Activity Type Activity Date Activity User E-sign Co-sign Detail Recorded Client Recorded Date Recorded By Document 03/13/23 12:36 PL [id number] 03/13/23 12:39 PL Document 03/20/23 12:45 PL [id number] 03/20/23 12:54 PL 03/13/23 03/20/23 12:36 12:45 Wound Center Nurse 2 #4 Left Heel -Time 08:27 08:42 -Correct Patient Yes Yes -Correct Side, Site, Position Yes Yes -Correct Procedure Yes Yes -Procedure Performed Yes Yes -Type of Procedure Debridement Debridement -Clinical Debridement Subcutaneous Subcutaneous -Tissue Removed Subcutaneous Epidermis, Dermis, Subcutaneous -Post Debridement (cm) - Length 0.7 0.4 -Post Debridement (cm) - Width 1.3 1.2 -Post Debridement (cm) - Depth 0.2 0.2 -Total Square (Post) (cm) 0.91 0.48 -Area of Debridement (cm) - Length 0.7 0.4 -Area of Debridement (cm) - Width 1.3 1.2 -Total Square (Area) (cm) 0.91 0.48 -Tunneling No No -Undermining/Tunneling No No -Circular Undermining No No -Wound/Ulcer Outcome Not Healed Not Healed -Ulcer Cleansing Rinsed/ Rinsed/ Irrigated with Irrigated with Saline Saline -Foul Odor after Cleansing No No -Bioengineered Tissue No No -Bleeding Controlled with Pressure Pressure -Treatment Response Procedure Procedure Tolerated Well Tolerated Well -Debridement - Subq, 1st 20sq cm Yes Yes 3. L lateral ankle -Time 08:27 08:42 -Correct Patient Yes Yes -Correct Side, Site, Position Yes Yes -Correct Procedure Yes Yes -Procedure Performed Yes Yes -Type of Procedure Debridement Debridement -Clinical Debridement Subcutaneous Subcutaneous -Tissue Removed Subcutaneous Subcutaneous -Post Debridement (cm) - Length 1.8 1.3 -Post Debridement (cm) - Width 1.7 1.3 -Post Debridement (cm) - Depth 0.4 0.4 -Total Square (Post) (cm) 3.06 1.69 -Area of Debridement (cm) - Length 1.8 1.3 -Area of Debridement (cm) - Width 1.7 1.3 -Total Square (Area) (cm) 3.06 1.69 -Tunneling No No -Undermining/Tunneling No Yes -Undermining/Tunneling Starts (O'clock 2 ) -Undermining/Tunneling Ends (O'clock) 4 -Maximum Distance (cm) 0.2 -Circular Undermining No No -Wound/Ulcer Outcome Not Healed Not Healed -Ulcer Cleansing Rinsed/ Rinsed/ Irrigated with Irrigated with Saline Saline -Foul Odor after Cleansing No No -Bioengineered Tissue Yes Yes -Type of Bioengineered Tissue Epifix 18mm Epifix 18mm Disc Disc -Expiration Date 12/05/27 12/05/27 -Product Lot Number [id number] -Percent Used 100 100 -Lot number of Saline Used [id number] -Bleeding Controlled with Pressure Pressure -Treatment Response Procedure Procedure Tolerated Well Tolerated Well -Debridement - Subq, 1st 20sq cm No No -Apply Skin Sub - 1st 25 sq cm - Legs 1 1 -Epifix 18mm Disc 3 3 Pain Scale: 0-10 Numeric Is Patient Pain Free? Yes No WC - Nurse 3 - General Ulcer D/C NN Start: 03/10/23 13:23 Freq: Status: Active Protocol: Activity Type Activity Date Activity User E-sign Co-sign Detail Recorded Client Recorded Date Recorded By Document 03/10/23 13:23 [facility] [id number] 03/10/23 13:26 BMF Document 03/13/23 09:11 RB Desktop 03/13/23 09:12 RB Edit Result 03/13/23 09:11 RB (1) Desktop 03/13/23 09:46 RB Document 03/20/23 09:31 RB [id number] 03/20/23 09:33 RB (1) Notes: => hydrogel and foam dressing to L heel 03/10/23 03/13/23 03/20/23 13:23 09:11 09:31 Vital Signs Temperature (97.8 F-99.1 F) 97.5 F L Temperature Source Temporal Pulse Rate (60-100) 79 Pulse Location Monitor Respiratory Rate (12-18) 16 Respiratory rate source Observation Oxygen Delivery Method Room Air Blood Pressure (90/60-120/80) 140/83 H Blood Pressure Mean (mm Hg) 102 Source Monitor Position Sitting Blood Pressure Location Left Arm Pain Scale: 0-10 Numeric Is Patient Pain Free? Yes Yes Yes Wound Care Center Nurse 3 #4 Left Heel -Primary Dressing Applied Mepilex Border -Other Dressing santyl -Mepilex Border 1 3. L lateral ankle -Ulcer Cleansing Rinsed/ Irrigated with Saline -Negative Pressure Wound Therapy Start Continue -Setting (mmHg) 125 125 -Negative Pressure is Continuous Continuous -Primary Dressing Applied Aquacel Extra -Other Dressing EPIFIX LEFT INTACT -Primary Dressing Covered/Secured with Dry Gauze,Dry Gauze & Roll Gauze,Secured with Tape -Other Covering REAPPLIED SNAP VAC -NPWT Application Charge NPWT </= 50 sq NPWT & cm (disp) ($) Debridement (nc ) -Aquacel Extra 1 Left -Tubular Bandage Single Layer Single Layer -Size of Tubigrip Used Size D Size D -Size D ($) 1 1 -Other REAPPLIED PTS SINGLE LAYER TUBI Treatment Response Procedure Procedure Procedure Tolerated Well Tolerated Well Tolerated Well WC - Visit Discharge Discharge Condition Stable Stable Stable Ambulatory Status Ambulatory Ambulatory Ambulatory Transportation Private Auto Private Auto Private Auto Medication Reconcilliation completed & No No provided to patient/care provider Clinical Summary of Care Provided Yes Yes Notes: hydrogel and foam dressing to L heel Additional Wound Wound debrided: left heel Laterality: Left Wound Grade/Stage: Soler Grade 2 Type of Debridement: Excisional debridement Anesthesia Used: 4% Lidocaine Solution and 5% Lidocaine Gel Depth: Down to and including healthy tissue and in the subcutaneous layer Percentage of wound debrided: 100 Instrument Used: 5mm curette Tissue Removed: Yellow slough, devitalized tissue Severity: Fat Layer Exposed Amount of bleeding with debridement: Mild Bleeding Controlled with: Compression and gauze Patient tolerated procedure: Patient tolerated procedure well Assessment/Plan Assessment/Plan (1) Essential hypertension: CODE(S): I10 - Essential (primary) hypertension (2) Uncontrolled type 2 diabetes mellitus with hyperglycemia: CODE(S): E11.65 - Type 2 diabetes mellitus with hyperglycemia (3) Nonhealing nonsurgical wound: CODE(S): T14.8XXA - Other injury of unspecified body region, initial encounter (4) Atherosclerosis of coronary artery of [place] heart without angina pectoris: CODE(S): I25.10 - Atherosclerotic heart disease of [place] coronary artery without angina pectoris QUALIFIERS: Coronary Disease-Associated Artery/Lesion type: [place] artery Qualified Code(s): I25.10 - Atherosclerotic heart disease of [place] coronary artery without angina pectoris (5) Chronic ulcer of left ankle with fat layer exposed: CODE(S): L97.322 - Non-pressure chronic ulcer of left ankle with fat layer exposed (6) Diabetic ulcer of left ankle associated with type 2 diabetes mellitus, with fat layer exposed: CODE(S): E11.622 - Type 2 diabetes mellitus with other skin ulcer; L97.322 - Non-pressure chronic ulcer of left ankle with fat layer exposed (7) Diabetes: CODE(S): E11.9 - Type 2 diabetes mellitus without complications QUALIFIERS: Diabetes mellitus type: type 2 Diabetes mellitus correction insulin use: 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 At home wound-care instructions: Epifix #4 applied today per community product specialist guidelines, rehydrated with sterile saline, covered with wound veil and secured with steri-strips. Snap Vac applied as a secondary dressing. Will have him use Santyl and foam dressing to his heel ulcer changed daily. Keep dressing clean and dry. Will have him use tubigrip compression to left leg to help with edema. Off-loading: The patient was instructed to avoid pressure and friction on the affected areas. Reposition every 2 hours at minimum. Avoid prolonged standing and/or dangling of legs. When seated, feet should be elevated at chest level. Frequent ambulation is encouraged. Diet: Patient encouraged to increase protein intake while taking caution to avoid high carbohydrate and/or sugar intake. Labs/cultures/imaging: Patient pulled up on his phone and PANCHO left ankle in May 2022 was 1.07. Culture 01/09/23 positive for Pseudomonas, Klebsiella, Enterococcus and Anaerobic bacteria. Venous studies unremarkable. PANCHO left ankle 01/14 was 1.37 CTA with run-off done at 01/21/23 and there is some stenosis in the anterior tibial artery but blood flow to dorsalis pedis is present. Follow-up: Return in 1 week for wound care follow up. Return sooner or report to the emergency room should symptoms worsen, or new symptoms arise. Note: [employer] speech recognition bryologist software was used to create portions of this document. Sound-alike and misspelled words, as well as other bryologist errors may be contained in the documentation.
[2023-04-03 08:01] VITALS: BP 136/77; PULSE 78; RESP 18; TEMP 36.1; BMI 33.1
--- NOTE | 2023-04-03 09:16 | PCM.WC.PN ---
History of Present Illness Date of Service: 04/03/23 Chief Complaint: non healing ulcer of left lateral malleolus/ankle History of Wound: Be is a 67-year-old white male with type 2 diabetes and a history of poor healing wounds that presents to the wound center today for evaluation and treatment of a nonhealing ulcer of his left lateral ankle/malleolus that started approximately 4 weeks ago. He thinks that his boot was rubbing the area and then noticed that there was drainage and was treating with a bandaid and antibiotic ointment with no improvement and increased drainage and erythema and swelling and then was seen by his PCP who started him on doxycyline and there was still no improvement so he gave him 1 dose of IM Rocephin and then started him on Cephalexin and Bactrim for which he has been taking almost 10 days of treatment and has 5 more days left of medication. He was then referred to the wound center for treatment. He has been covering the wound with gauze and antibiotic ointment but leaving it open to air when he is at home. He appears to have Charcot of the right foot and a collapsed right arch. He has had vascular testing by Dr. Flores his research chemical engineer at the [facility] last year. His last A1C is unknown. He denies fever, chills, increased erythema or drainage and has been taking his antibiotics as instructed. Subjective Subjective Calvin returns for follow up of ulcer of lateral left ankle. Ulcer is improved in depth and granulation. He tolerated treatment with Epifix and snap vac. His heel is improving and he is tolerating dressing this with Santyl and gauze. Calvin's php programmer stopped his hydroxyurea due to the potential of this being a factor to his delayed wound healing. Wound culture 01/09/23 was positive for anaerobic bacteria, Pseudomonas, Enterococcus and Klebsiella. He was started on Augmentin and Ciprofloxacin and completed treatment. He had vascular testing and venous insufficiency not identified. ABIs were WNL and not changed from previous. He had CTA with runoff scheduled on 01/21/23 which showed some areas of stenosis in left leg but there was blood flow to dorsalis pedis artery. He had consultation with vascular surgery on 02/02/[address] Gibson prefers to defer any surgical intervention for now as he does not think there is significant arterial disease in his left leg contributing to his difficulty healing. Denies fever, chills, increased drainage or pain. Objective Data Objective Data Vital Signs: Vital Signs Temp Pulse Resp BP O2 Del Method 96.9 F L 78 18 136/77 H Room Air 04/03/23 08:01 04/03/23 08:01 04/03/23 08:01 04/03/23 08:01 03/13/23 08:28 Oxygen Delivery Method Room Air Weight: 112.491 kg Body Mass Index (BMI) 33.1 Physical Exam Const alert, oriented x3 and no apparent distress General Appearance: cooperative and comfortable HEENT normocephalic and head/scalp atraumatic Resp normal respiratory effort Effort and Inspection: able to speak in complete sentences Cardio regular rate and regular rhythm Skin Wounds: wounds noted Wound Narrative: as in clinical panel Psych mental status grossly normal, thought process normal, cooperative and affect normal Debridement Note Debridement Note Wound debrided: left lateral ankle Laterality: Left Wound Grade/Stage: Soler grade 2 Type of Debridement: Excisional debridement Anesthesia Used: 4% Lidocaine Solution, 5% Lidocaine Gel and Cetacaine Depth: Down to and including healthy tissue and in the subcutaneous layer Percentage of wound debrided: 100 Instrument Used: 5mm curette Tissue Removed: Yellow slough, devitalized tissue Severity: Fat Layer Exposed Amount of bleeding with debridement: Mild Bleeding Controlled with: Compression and gauze Patient tolerated procedure: Patient tolerated procedure well Post-Debridement Measurements and Additional Note: Post-Debridement Measurements/Treatment WC - Nurse 1 - General Ulcer Assessment Start: 03/10/23 13:23 Freq: Status: Active Protocol: AIXA Activity Type Activity Date Activity User E-sign Co-sign Detail Recorded Client Recorded Date Recorded By Document 03/10/23 13:23 [facility] [id number] 03/10/23 13:26 BM Document 03/13/23 08:28 MT [id number] 03/13/23 08:32 MT Document 03/20/23 08:05 DL [id number] 03/20/23 08:15 DL Document 03/27/23 08:07 RB Desktop 03/27/23 08:22 RB Document 04/03/23 08:01 PL [id number] 04/03/23 08:03 PL 03/10/23 03/13/23 03/20/23 13:23 08:28 08:05 - Today's Visit Information Type of service Nurse-only Initial Visit Follow-up Visit Visit (Physician/ACTUARIAL CONSULTANT ) Arrival Mode Ambulatory Ambulatory Ambulatory Transfer Assistance None Patient Identification Verified (Name & Yes Yes Yes ) Patient Requires Transmission-Based No No Precautions Safety Precautions Height and Weight Body Mass Index (BMI) 33.1 33.1 33.1 BMI Classification Obese Obese Obese Vital Signs Temperature (97.8 F-99.1 F) 97.5 F L 97.1 F L 96.5 F L Temperature Source Temporal Oral Temporal Pulse Rate (60-100) 79 79 Pulse Location Monitor Monitor Respiratory Rate (12-18) 16 18 18 Respiratory rate source Observation Observation Observation Oxygen Delivery Method Room Air Room Air Blood Pressure (90/60-120/80) 140/83 H 146/79 H 132/74 H Blood Pressure Mean (mm Hg) 102 101 93 Source Monitor Monitor Monitor Position Sitting Sitting Blood Pressure Location Left Arm Right Arm History Since Last Visit- (Skip if this is Patient's initial visit) Have you changed medications since your No No No last visit? Any new allergies or adverse reactions No No No Had a fall/change in ADL's that may No No No increase risk of falls Signs or symptoms of abuse and/or No No No neglect since last visit Have you been in the hospital since your No No No last visit? Has dressing in place as prescribed Yes Yes Yes Has compression in place as prescribed Yes Yes Yes Has offloadiing in place as prescribed N/A N/A N/A Experienced any changes in pain level or No No No management Left Footwear Regular Shoe Regular Shoe Right Footwear Regular Shoe Regular Shoe Pain Scale: 0-10 Numeric Is Patient Pain Free? Yes Yes Yes 03/27/23 04/03/23 08:07 08:01 - Today's Visit Information Type of service Follow-up Visit Follow-up Visit (Physician/ACTUARIAL CONSULTANT (Physician/ACTUARIAL CONSULTANT ) ) Arrival Mode Ambulatory Ambulatory Transfer Assistance None None Patient Identification Verified (Name & Yes Yes ) Patient Requires Transmission-Based No Precautions Safety Precautions NA Height and Weight Body Mass Index (BMI) 33.1 33.1 BMI Classification Obese Obese Vital Signs Temperature (97.8 F-99.1 F) 97.4 F L 96.9 F L Temperature Source Temporal Temporal Pulse Rate (60-100) 78 78 Pulse Location Monitor Respiratory Rate (12-18) 18 18 Respiratory rate source Observation Oxygen Delivery Method Blood Pressure (90/60-120/80) 140/83 H 136/77 H Blood Pressure Mean (mm Hg) 102 96 Source Monitor Position Semi-Fowlers Blood Pressure Location Left Arm History Since Last Visit- (Skip if this is Patient's initial visit) Have you changed medications since your No No last visit? Any new allergies or adverse reactions No No Had a fall/change in ADL's that may No No increase risk of falls Signs or symptoms of abuse and/or No No neglect since last visit Have you been in the hospital since your No No last visit? Has dressing in place as prescribed Yes Yes Has compression in place as prescribed Yes Yes Has offloadiing in place as prescribed No N/A Experienced any changes in pain level or No No management Left Footwear Right Footwear Pain Scale: 0-10 Numeric Is Patient Pain Free? Yes Yes WC - Nurse 1 - General Ulcer Measurement Start: 03/10/23 13:23 Freq: Status: Active Protocol: Activity Type Activity Date Activity User E-sign Co-sign Detail Recorded Client Recorded Date Recorded By Document 03/10/23 13:23 [facility] [id number] 03/10/23 13:26 BM Document 03/13/23 08:28 MT [id number] 03/13/23 08:32 MT Document 03/20/23 08:05 DL [id number] 03/20/23 08:15 DL Document 03/27/23 08:07 RB Desktop 03/27/23 08:22 RB 03/10/23 03/13/23 03/20/23 13:23 08:28 08:05 Wound Center Nurse 1 #4 Left Heel -Combined with other wound -Current Size (cm) - Length 0.5 -Current Size (cm) - Width 1.6 -Current Size (cm) - Depth 0.2 -Total Square Cm 0.80 -Photo Taken -Tunneling -Undermining/Tunneling -Circular Undermining -Exudate Amt Medium -Exudate Type Serosanguineous -Wound Margin Distinct, Outline Attached -Granulation Amt Large (67-100%) -Granulation Quality Red -Slough/Fibrin -Necrosis Amt Small (1-33%) -Necrotic Tissue Type Adherent Slough -Structure Exposed N/A -Texture (Gricelda-wound Skin Appearance) Scarring -Moisture ([place]ricelda-wound Skin Appearance) Maceration -Color ([place]elda-wound Skin Appearance) No Abnormality -Temperature ([place]da-wound Skin No Abnormality Appearance) (Pt Warm) -Tenderness on Palpation ([place]elda-wound No Skin Appearance) -Ulcer Cleansing Soap and Water -Foul Odor after Cleansing No -Anesthetic Used 5% Lidocaine Gel 3. L lateral ankle -Combined with other wound No -Current Size (cm) - Length 1.3 1.2 -Current Size (cm) - Width 1.4 1 -Current Size (cm) - Depth 0.5 0.5 -Total Square Cm 1.82 1.2 -Photo Taken No -Tunneling No -Undermining/Tunneling No -Circular Undermining No -Exudate Amt Large Medium -Exudate Type Serosanguineous Serosanguineous -Wound Margin Thickened & Distinct, Rolled Under Outline Attached -Granulation Amt Medium (34-66%) Small (1-33%) -Granulation Quality Pale,[place] Red -Slough/Fibrin -Necrosis Amt Medium (34-66%) Large (67-100%) -Necrotic Tissue Type Adherent Slough Adherent Slough -Structure Exposed N/A -Texture (Gricelda-wound Skin Appearance) Assessed Scarring -Moisture ([place]elda-wound Skin Appearance) Assessed Dry/Scaly -Color ([place]elda-wound Skin Appearance) Assessed No Abnormality -Temperature ([place]da-wound Skin No Abnormality No Abnormality Appearance) (Pt Warm) (Pt Warm) -Tenderness on Palpation ([place]ricelda-wound No No Skin Appearance) -Ulcer Cleansing Wound Cleanser Soap and Water -Foul Odor after Cleansing No No -Anesthetic Used 5% Lidocaine 5% Lidocaine Gel Gel -Wound Comment(s) EPIFIX INTACT Lower Limb Edema Present Left Calf (cm) 37.5 37.5 Left Ankle (cm) 25.5 24.5 03/27/23 08:07 Wound Center Nurse 1 #4 Left Heel -Combined with other wound No -Current Size (cm) - Length 0.3 -Current Size (cm) - Width 1.1 -Current Size (cm) - Depth 0.1 -Total Square Cm 0.33 -Photo Taken Yes -Tunneling No -Undermining/Tunneling No -Circular Undermining No -Exudate Amt Medium -Exudate Type Serosanguineous -Wound Margin Fibrotic Scar, Thickened Scar -Granulation Amt Medium (34-66%) -Granulation Quality [place] -Slough/Fibrin Yes -Necrosis Amt Medium (34-66%) -Necrotic Tissue Type Adherent Slough -Structure Exposed N/A -Texture (Gricelda-wound Skin Appearance) Assessed -Moisture (Gricelda-wound Skin Appearance) Maceration -Color (Gricelda-wound Skin Appearance) Assessed -Temperature ([place]da-wound Skin No Abnormality Appearance) (Pt Warm) -Tenderness on Palpation ([place]elda-wound No Skin Appearance) -Ulcer Cleansing Wound Cleanser -Foul Odor after Cleansing No -Anesthetic Used 5% Lidocaine Gel 3. L lateral ankle -Combined with other wound No -Current Size (cm) - Length 1.3 -Current Size (cm) - Width 0.9 -Current Size (cm) - Depth 0.4 -Total Square Cm 1.17 -Photo Taken -Tunneling No -Undermining/Tunneling No -Circular Undermining No -Exudate Amt Medium -Exudate Type Serosanguineous -Wound Margin Distinct, Outline Attached -Granulation Amt Medium (34-66%) -Granulation Quality [place] -Slough/Fibrin Yes -Necrosis Amt Medium (34-66%) -Necrotic Tissue Type Adherent Slough -Structure Exposed N/A -Texture (Gricelda-wound Skin Appearance) Assessed -Moisture (Gricelda-wound Skin Appearance) Maceration -Color (Gricelda-wound Skin Appearance) Assessed, Erythema -Temperature ([place]da-wound Skin No Abnormality Appearance) (Pt Warm) -Tenderness on Palpation ([place]elda-wound No Skin Appearance) -Ulcer Cleansing Wound Cleanser -Foul Odor after Cleansing No -Anesthetic Used 5% Lidocaine Gel -Wound Comment(s) Lower Limb Edema Present Yes Left Calf (cm) 37.2 Left Ankle (cm) 25.5 WC - Nurse 2 - General Ulcer CM Notes Start: 03/10/23 13:23 Freq: Status: Active Protocol: Activity Type Activity Date Activity User E-sign Co-sign Detail Recorded Client Recorded Date Recorded By Document 03/13/23 12:36 PL [id number] 03/13/23 12:39 PL Document 03/20/23 12:45 PL [id number] 03/20/23 12:54 PL Document 03/27/23 12:55 PL [id number] 03/27/23 13:01 PL Document 04/03/23 08:56 [id number] 04/03/23 09:02 03/13/23 03/20/23 03/27/23 12:36 12:45 12:55 Wound Center Nurse 2 #4 Left Heel -Time : 08:42 08:29 -Correct Patient Yes Yes Yes -Correct Side, Site, Position Yes Yes Yes -Correct Procedure Yes Yes Yes -Procedure Performed Yes Yes Yes -Type of Procedure Debridement Debridement Debridement -Clinical Debridement Subcutaneous Subcutaneous Subcutaneous -Tissue Removed Subcutaneous Epidermis, Subcutaneous Dermis, Subcutaneous -Post Debridement (cm) - Length 0.7 0.4 0.5 -Post Debridement (cm) - Width 1.3 1.2 0.6 -Post Debridement (cm) - Depth 0.2 0.2 0.2 -Total Square (Post) (cm) 0.91 0.48 0.30 -Area of Debridement (cm) - Length 0.7 0.4 0.5 -Area of Debridement (cm) - Width 1.3 1.2 0.6 -Total Square (Area) (cm) 0.91 0.48 0.30 -Tunneling No No No -Undermining/Tunneling No No No -Circular Undermining No No No -Wound/Ulcer Outcome Not Healed Not Healed Not Healed -Ulcer Cleansing Rinsed/ Rinsed/ Rinsed/ Irrigated with Irrigated with Irrigated with Saline Saline Saline -Foul Odor after Cleansing No No No -Bioengineered Tissue No No No -Bleeding Controlled with Pressure Pressure Pressure -Treatment Response Procedure Procedure Procedure Tolerated Well Tolerated Well Tolerated Well -Debridement - Subq, 1st 20sq cm Yes Yes Yes 3. L lateral ankle -Time : 08:42 08:29 -Correct Patient Yes Yes Yes -Correct Side, Site, Position Yes Yes Yes -Correct Procedure Yes Yes Yes -Procedure Performed Yes Yes Yes -Type of Procedure Debridement Debridement Debridement -Clinical Debridement Subcutaneous Subcutaneous Subcutaneous -Tissue Removed Subcutaneous Subcutaneous -Post Debridement (cm) - Length 1.8 1.3 1.2 -Post Debridement (cm) - Width 1.7 1.3 1.1 -Post Debridement (cm) - Depth 0.4 0.4 0.3 -Total Square (Post) (cm) 3.06 1.69 1.32 -Area of Debridement (cm) - Length 1.8 1.3 1.2 -Area of Debridement (cm) - Width 1.7 1.3 1.1 -Total Square (Area) (cm) 3.06 1.69 1.32 -Tunneling No No No -Undermining/Tunneling No Yes No -Undermining/Tunneling Starts (O'clock 2 ) -Undermining/Tunneling Ends (O'clock) 4 -Maximum Distance (cm) 0.2 -Circular Undermining No No No -Wound/Ulcer Outcome Not Healed Not Healed Not Healed -Ulcer Cleansing Rinsed/ Rinsed/ Rinsed/ Irrigated with Irrigated with Irrigated with Saline Saline Saline -Foul Odor after Cleansing No No No -Bioengineered Tissue Yes Yes Yes -Type of Bioengineered Tissue Epifix 18mm Epifix 18mm Epifix 18mm Disc Disc Disc -Expiration Date 12/05/27 12/05/27 12/05/27 -Product Lot Number [id number] -Percent Used 100 100 100 -Lot number of Saline Used [id number] -Bleeding Controlled with Pressure Pressure Pressure -Treatment Response Procedure Procedure Procedure Tolerated Well Tolerated Well Tolerated Well -Debridement - Subq, 1st 20sq cm No No No -Apply Skin Sub - 1st 25 sq cm - Legs 1 1 1 -Epifix 18mm Disc 3 3 3 Pain Scale: 0-10 Numeric Is Patient Pain Free? Yes No Yes 04/03/23 08:56 Wound Center Nurse 2 #4 Left Heel -Time 08:10 -Correct Patient Yes -Correct Side, Site, Position Yes -Correct Procedure Yes -Procedure Performed Yes -Type of Procedure Debridement -Clinical Debridement Subcutaneous -Tissue Removed Subcutaneous -Post Debridement (cm) - Length 0.2 -Post Debridement (cm) - Width 0.4 -Post Debridement (cm) - Depth 0.1 -Total Square (Post) (cm) 0.08 -Area of Debridement (cm) - Length 0.2 -Area of Debridement (cm) - Width 0.4 -Total Square (Area) (cm) 0.08 -Tunneling No -Undermining/Tunneling No -Circular Undermining -Wound/Ulcer Outcome Not Healed -Ulcer Cleansing Rinsed/ Irrigated with Saline -Foul Odor after Cleansing No -Bioengineered Tissue No -Bleeding Controlled with Pressure -Treatment Response Procedure Tolerated Well -Debridement - Subq, 1st 20sq cm Yes 3. L lateral ankle -Time 08:10 -Correct Patient Yes -Correct Side, Site, Position Yes -Correct Procedure Yes -Procedure Performed Yes -Type of Procedure Debridement -Clinical Debridement Subcutaneous -Tissue Removed Subcutaneous -Post Debridement (cm) - Length 1.1 -Post Debridement (cm) - Width 0.9 -Post Debridement (cm) - Depth 0.3 -Total Square (Post) (cm) 0.99 -Area of Debridement (cm) - Length 1.1 -Area of Debridement (cm) - Width 0.9 -Total Square (Area) (cm) 0.99 -Tunneling No -Undermining/Tunneling Yes -Undermining/Tunneling Starts (O'clock 2 ) -Undermining/Tunneling Ends (O'clock) 4 -Maximum Distance (cm) 0.4 -Circular Undermining -Wound/Ulcer Outcome Not Healed -Ulcer Cleansing Rinsed/ Irrigated with Saline -Foul Odor after Cleansing No -Bioengineered Tissue Yes -Type of Bioengineered Tissue Epifix 18mm Disc -Expiration Date 12/05/27 -Product Lot Number [id number] -Percent Used 100 -Lot number of Saline Used -Bleeding Controlled with Pressure -Treatment Response Procedure Tolerated Well -Debridement - Subq, 1st 20sq cm No -Apply Skin Sub - 1st 25 sq cm - Legs 1 -Epifix 18mm Disc 3 Pain Scale: 0-10 Numeric Is Patient Pain Free? Yes WC - Nurse 3 - General Ulcer D/C NN Start: 03/10/23 13:23 Freq: Status: Active Protocol: Activity Type Activity Date Activity User E-sign Co-sign Detail Recorded Client Recorded Date Recorded By Document 03/10/23 13:23 [facility] [id number] 03/10/23 13:26 BMF Document 03/13/23 09:11 RB Desktop 03/13/23 09:12 RB Edit Result 03/13/23 09:11 RB (1) Desktop 03/13/23 09:46 RB Document 03/20/23 09:31 RB [id number] 03/20/23 09:33 RB Document 03/27/23 09:03 RB Desktop 09/22/23 09:04 RB (1) Notes: => hydrogel and foam dressing to L heel 03/10/23 03/13/23 03/20/23 13:23 09:11 09:31 Vital Signs Temperature (97.8 F-99.1 F) 97.5 F L Temperature Source Temporal Pulse Rate (60-100) 79 Pulse Location Monitor Respiratory Rate (12-18) 16 Respiratory rate source Observation Oxygen Delivery Method Room Air Blood Pressure (90/60-120/80) 140/83 H Blood Pressure Mean (mm Hg) 102 Source Monitor Position Sitting Blood Pressure Location Left Arm Pain Scale: 0-10 Numeric Is Patient Pain Free? Yes Yes Yes Wound Care Center Nurse 3 #4 Left Heel -Primary Dressing Applied Mepilex Border -Other Dressing santyl -Mepilex Border 1 3. L lateral ankle -Ulcer Cleansing Rinsed/ Irrigated with Saline -Negative Pressure Wound Therapy Start Continue -Setting (mmHg) 125 125 -Negative Pressure is Continuous Continuous -Primary Dressing Applied Aquacel Extra -Other Dressing EPIFIX LEFT INTACT -Primary Dressing Covered/Secured with Dry Gauze,Dry Gauze & Roll Gauze,Secured with Tape -Other Covering REAPPLIED SNAP VAC -NPWT Application Charge NPWT </= 50 sq NPWT & cm (disp) ($) Debridement (nc ) -Aquacel Extra 1 Left -Tubular Bandage Single Layer Single Layer -Size of Tubigrip Used Size D Size D -Size D ($) 1 1 -Other REAPPLIED PTS SINGLE LAYER TUBI Treatment Response Procedure Procedure Procedure Tolerated Well Tolerated Well Tolerated Well WC - Visit Discharge Discharge Condition Stable Stable Stable Ambulatory Status Ambulatory Ambulatory Ambulatory Transportation Private Auto Private Auto Private Auto Medication Reconcilliation completed & No No provided to patient/care provider Clinical Summary of Care Provided Yes Yes Notes: hydrogel and foam dressing to L heel 03/27/23 09:03 Vital Signs Temperature (97.8 F-99.1 F) Temperature Source Pulse Rate (60-100) Pulse Location Respiratory Rate (12-18) Respiratory rate source Oxygen Delivery Method Blood Pressure (90/60-120/80) Blood Pressure Mean (mm Hg) Source Position Blood Pressure Location Pain Scale: 0-10 Numeric Is Patient Pain Free? Yes Wound Care Center Nurse 3 #4 Left Heel -Primary Dressing Applied Mepilex Border -Other Dressing santyl -Mepilex Border 1 3. L lateral ankle -Ulcer Cleansing Rinsed/ Irrigated with Saline -Negative Pressure Wound Therapy Continue -Setting (mmHg) 125 -Negative Pressure is Continuous -Primary Dressing Applied -Other Dressing -Primary Dressing Covered/Secured with -Other Covering -NPWT Application Charge NPWT & Debridement (nc ) -Aquacel Extra Left -Tubular Bandage Single Layer -Size of Tubigrip Used Size D -Size D ($) 1 -Other Treatment Response Procedure Tolerated Well WC - Visit Discharge Discharge Condition Stable Ambulatory Status Ambulatory Transportation Private Auto Medication Reconcilliation completed & No provided to patient/care provider Clinical Summary of Care Provided Yes Notes: Additional Wound Wound debrided: left heel Laterality: Left Wound Grade/Stage: Soler Grade 2 Type of Debridement: Excisional debridement Anesthesia Used: 4% Lidocaine Solution and 5% Lidocaine Gel Depth: Down to and including healthy tissue and in the subcutaneous layer Percentage of wound debrided: 100 Instrument Used: 5mm curette Tissue Removed: Yellow slough, devitalized tissue Severity: Fat Layer Exposed Amount of bleeding with debridement: Mild Bleeding Controlled with: Compression and gauze Patient tolerated procedure: Patient tolerated procedure well Assessment/Plan Assessment/Plan (1) Essential hypertension: CODE(S): I10 - Essential (primary) hypertension (2) Uncontrolled type 2 diabetes mellitus with hyperglycemia: CODE(S): E11.65 - Type 2 diabetes mellitus with hyperglycemia (3) Nonhealing nonsurgical wound: CODE(S): T14.8XXA - Other injury of unspecified body region, initial encounter (4) Atherosclerosis of coronary artery of [place] heart without angina pectoris: CODE(S): I25.10 - Atherosclerotic heart disease of [place] coronary artery without angina pectoris QUALIFIERS: Coronary Disease-Associated Artery/Lesion type: [place] artery Qualified Code(s): I25.10 - Atherosclerotic heart disease of [place] coronary artery without angina pectoris (5) Chronic ulcer of left ankle with fat layer exposed: CODE(S): L97.322 - Non-pressure chronic ulcer of left ankle with fat layer exposed (6) Diabetic ulcer of left ankle associated with type 2 diabetes mellitus, with fat layer exposed: CODE(S): E11.622 - Type 2 diabetes mellitus with other skin ulcer; L97.322 - Non-pressure chronic ulcer of left ankle with fat layer exposed (7) Diabetes: CODE(S): E11.9 - Type 2 diabetes mellitus without complications QUALIFIERS: Diabetes mellitus type: type 2 Diabetes mellitus fci insulin use: unspecified fci insulin use status Diabetes mellitus complication status: with skin complications Diabetes mellitus complication detail: with other skin ulcer Qualified Code(s): E11.622 - Type 2 diabetes mellitus with other skin ulcer; L98.499 - Non-pressure chronic ulcer of skin of other sites with unspecified severity PLAN: Plan Debridement performed today in clinic as annotated above. At home wound-care instructions: Epifix #5 applied today per poultry and fish [employer] guidelines, rehydrated with sterile saline, covered with wound veil and secured with steri-strips. Snap Vac applied as a secondary dressing. Will have him use hydrogel and foam dressing to his heel ulcer changed daily. Keep dressing clean and dry. Will have him use tubigrip compression to left leg to help with edema. Off-loading: The patient was instructed to avoid pressure and friction on the affected areas. Reposition every 2 hours at minimum. Avoid prolonged standing and/or dangling of legs. When seated, feet should be elevated at chest level. Frequent ambulation is encouraged. Diet: Patient encouraged to increase protein intake while taking caution to avoid high carbohydrate and/or sugar intake. Labs/cultures/imaging: Patient pulled up on his phone and PANCHO left ankle in May 2022 was 1.07. Culture 01/09/23 positive for Pseudomonas, Klebsiella, Enterococcus and Anaerobic bacteria. Venous studies unremarkable. PANCHO left ankle 01/14 was 1.37 CTA with run-off done at 01/21/23 and there is some stenosis in the anterior tibial artery but blood flow to dorsalis pedis is present. Follow-up: Return in 1 week for wound care follow up. Return sooner or report to the emergency room should symptoms worsen, or new symptoms arise. Note: [employer] speech recognition wash helper software was used to create portions of this document. Sound-alike and misspelled words, as well as other wash helper errors may be contained in the documentation.
== END 2023-04-04 23:59 | disposition home or self-care (01) ==
LOC: WC 08:00
PROVIDERS: PCP Family Medicine; Referring Provider Family Medicine; Visit Provider Family Medicine
DX: E11.622 Type 2 diabetes mellitus with other skin ulcer (principal); E11.621 Type 2 diabetes mellitus with foot ulcer; E11.51 Type 2 diabetes mellitus with diabetic peripheral angiopathy without gangrene; L97.322 Non-pressure chronic ulcer of left ankle with fat layer exposed; L98.492 Non-pressure chronic ulcer of skin of other sites with fat layer exposed; E11.65 Type 2 diabetes mellitus with hyperglycemia; I25.10 Atherosclerotic heart disease of native coronary artery without angina pectoris; I10 Essential (primary) hypertension
CPT/HCPCS: 11042; 15271; 97607; Q4186

== ENCOUNTER 2023-04-24 08:00 | Outpatient (RCR) | payer MEDICARE, OTHER, SELFPAY ==
[2023-04-05 00:38] VITALS: BP 136/77; PULSE 78; RESP 18; TEMP 36.1; BMI 33.1
[2023-04-10 08:09] VITALS: BP 133/80; PULSE 82; RESP 18; TEMP 35.7; BMI 33.1
--- NOTE | 2023-04-10 13:14 | PCM.WC.PN ---
History of Present Illness Date of Service: 04/10/23 Chief Complaint: non healing ulcer of left lateral malleolus/ankle History of Wound: Be is a 67-year-old white male with type 2 diabetes and a history of poor healing wounds that presents to the wound center today for evaluation and treatment of a nonhealing ulcer of his left lateral ankle/malleolus that started approximately 4 weeks ago. He thinks that his boot was rubbing the area and then noticed that there was drainage and was treating with a bandaid and antibiotic ointment with no improvement and increased drainage and erythema and swelling and then was seen by his PCP who started him on doxycyline and there was still no improvement so he gave him 1 dose of IM Rocephin and then started him on Cephalexin and Bactrim for which he has been taking almost 10 days of treatment and has 5 more days left of medication. He was then referred to the wound center for treatment. He has been covering the wound with gauze and antibiotic ointment but leaving it open to air when he is at home. He appears to have Charcot of the right foot and a collapsed right arch. He has had vascular testing by Dr. 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 His last A1C is unknown. He denies fever, chills, increased erythema or drainage and has been taking his antibiotics as instructed. Subjective Subjective Calvin returns for follow up of ulcer of lateral left ankle. Ulcer is improved in depth and granulation. He tolerated treatment with Epifix and snap vac. His heel is healed today. Calvin's naumkeag operator stopped his hydroxyurea due to the potential of this being a factor to his delayed wound healing. Wound culture 01/09/23 was positive for anaerobic bacteria, Pseudomonas, Enterococcus and Klebsiella. He was started on Augmentin and Ciprofloxacin and completed treatment. He had vascular testing and venous insufficiency not identified. ABIs were WNL and not changed from previous. He had CTA with runoff scheduled on 01/21/23 which showed some areas of stenosis in left leg but there was blood flow to dorsalis pedis artery. He had consultation with vascular surgery on 02/02/[address] Gibson prefers to defer any surgical intervention for now as he does not think there is significant arterial disease in his left leg contributing to his difficulty healing. Denies fever, chills, increased drainage or pain. Objective Data Objective Data Vital Signs: Vital Signs Temp Pulse Resp BP 96.3 F L 82 18 133/80 H 04/10/23 08:09 04/10/23 08:09 04/10/23 08:09 04/10/23 08:09 Weight: 112.491 kg Body Mass Index (BMI) 33.1 Physical Exam Const alert, oriented x3 and no apparent distress General Appearance: cooperative and comfortable HEENT normocephalic and head/scalp atraumatic Resp normal respiratory effort Effort and Inspection: able to speak in complete sentences Cardio regular rate and regular rhythm Skin Wounds: wounds noted Wound Narrative: as in clinical panel Psych mental status grossly normal, thought process normal, cooperative and affect normal Debridement Note Debridement Note Wound debrided: left lateral ankle Laterality: Left Wound Grade/Stage: Soler grade 2 Type of Debridement: Excisional debridement Anesthesia Used: 4% Lidocaine Solution, 5% Lidocaine Gel and Cetacaine Depth: Down to and including healthy tissue and in the subcutaneous layer Percentage of wound debrided: 100 Instrument Used: 3mm curette Tissue Removed: Yellow slough, devitalized tissue Severity: Fat Layer Exposed Amount of bleeding with debridement: Mild Bleeding Controlled with: Compression and gauze Patient tolerated procedure: Patient tolerated procedure well Post-Debridement Measurements and Additional Note: Post-Debridement Measurements/Treatment - Nurse 1 - General Ulcer Assessment Start: 04/10/23 08:09 Freq: Status: Active Protocol: .MILI Activity Type Activity Date Activity User E-sign Co-sign Detail Recorded Client Recorded Date Recorded By Document 04/10/23 08:09 Desktop 04/10/23 08:14 04/10/23 08:09 - Today's Visit Information Type of service Follow-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 ) Arrival Mode Ambulatory Transfer Assistance None Patient Identification Verified (Name & Yes ) Patient Requires Transmission-Based No Precautions Height and Weight Body Mass Index (BMI) 33.1 BMI Classification Obese Vital Signs Temperature (97.8 F-99.1 F) 96.3 F L Temperature Source Temporal Pulse Rate (60-100) 82 Pulse Location Monitor Respiratory Rate (12-18) 18 Respiratory rate source Observation Blood Pressure (90/60-120/80) 133/80 H Blood Pressure Mean (mm Hg) 97 Source Monitor Position Semi-Fowlers Blood Pressure Location Left Arm History Since Last Visit- (Skip if this is Patient's initial visit) Have you changed medications since your No last visit? Any new allergies or adverse reactions No Had a fall/change in ADL's that may No increase risk of falls Signs or symptoms of abuse and/or No neglect since last visit Have you been in the hospital since your No last visit? Has dressing in place as prescribed Yes Has compression in place as prescribed Yes Has offloadiing in place as prescribed No Experienced any changes in pain level or No management Pain Scale: 0-10 Numeric Is Patient Pain Free? Yes WC - Nurse 1 - General Ulcer Measurement Start: 04/10/23 08:09 Freq: Status: Active Protocol: Activity Type Activity Date Activity User E-sign Co-sign Detail Recorded Client Recorded Date Recorded By Document 04/10/23 08:09 RB Desktop 04/10/23 08:14 RB 04/10/23 08:09 Wound Center Nurse 1 #4 Left Heel -Combined with other wound No -Current Size (cm) - Length 0.1 -Current Size (cm) - Width 0.1 -Current Size (cm) - Depth 0.1 -Total Square Cm 0.01 -Tunneling No -Undermining/Tunneling No -Circular Undermining No -Exudate Amt Small -Exudate Type Serosanguineous -Wound Margin Distinct, Outline Attached -Granulation Amt Medium (34-66%) -Granulation Quality Bylas -Slough/Fibrin Yes -Necrosis Amt Small (1-33%) -Necrotic Tissue Type Adherent Slough -Structure Exposed N/A -Texture (Gricelda-wound Skin Appearance) Assessed -Moisture (Gricelda-wound Skin Appearance) Assessed -Color (Gricelda-wound Skin Appearance) Assessed -Temperature ([place]elda-wound Skin No Abnormality Appearance) (Pt Warm) -Tenderness on Palpation (Gricelda-wound No Skin Appearance) -Ulcer Cleansing Wound Cleanser -Foul Odor after Cleansing No 3. L lateral ankle -Combined with other wound No -Current Size (cm) - Length 0.8 -Current Size (cm) - Width 0.8 -Current Size (cm) - Depth 0.3 -Total Square Cm 0.64 -Photo Taken Yes -Tunneling No -Undermining/Tunneling No -Circular Undermining No -Exudate Amt Large -Exudate Type Serosanguineous -Wound Margin Thickened & Rolled Under -Granulation Amt Medium (34-66%) -Granulation Quality Bylas,Red -Slough/Fibrin Yes -Necrosis Amt Medium (34-66%) -Necrotic Tissue Type Adherent Slough -Structure Exposed N/A -Texture (Gricelda-wound Skin Appearance) Assessed -Moisture (Gricelda-wound Skin Appearance) Assessed -Color (Gricelda-wound Skin Appearance) Erythema -Temperature (Gricelda-wound Skin No Abnormality Appearance) (Pt Warm) -Tenderness on Palpation (Gricelda-wound No Skin Appearance) -Ulcer Cleansing Wound Cleanser -Foul Odor after Cleansing No -Anesthetic Used 5% Lidocaine Gel Lower Limb Edema Present Yes Left Calf (cm) 36.3 Left Ankle (cm) 25 WC - Nurse 2 - General Ulcer CM Notes Start: 04/10/23 08:09 Freq: Status: Active Protocol: Activity Type Activity Date Activity User E-sign Co-sign Detail Recorded Client Recorded Date Recorded By Document 04/10/23 08:24 GM Desktop 04/10/23 08:36 GM 04/10/23 08:24 Wound Center Nurse 2 #4 Left Heel -Time 08:24 -Correct Patient Yes -Correct Side, Site, Position Yes -Wound/Ulcer Outcome Healed- Epithelialized 3. L lateral ankle -Time 08:24 -Correct Patient Yes -Correct Side, Site, Position Yes -Correct Procedure Yes -Procedure Performed Yes -Type of Procedure Debridement -Clinical Debridement Subcutaneous -Tissue Removed Subcutaneous -Post Debridement (cm) - Length 1.1 -Post Debridement (cm) - Width 0.8 -Post Debridement (cm) - Depth 0.2 -Total Square (Post) (cm) 0.88 -Area of Debridement (cm) - Length 1.1 -Area of Debridement (cm) - Width 0.8 -Total Square (Area) (cm) 0.88 -Tunneling No -Undermining/Tunneling Yes -Undermining/Tunneling Starts (O'clock 3 ) -Undermining/Tunneling Ends (O'clock) 4 -Maximum Distance (cm) 0.2 -Wound/Ulcer Outcome Not Healed -Ulcer Cleansing Rinsed/ Irrigated with Saline -Foul Odor after Cleansing No -Type of Bioengineered Tissue Epifix 18mm Disc -Expiration Date 01/04/28 -Product Lot Number [id number] -Percent Used 100 -Lot number of Saline Used [id number] -Bleeding Controlled with NA -Treatment Response Procedure Tolerated Well -Debridement - Subq, 1st 20sq cm No -Epifix 18mm Disc 3 Pain Scale: 0-10 Numeric Is Patient Pain Free? Yes - Nurse 3 - General Ulcer D/C NN Start: 04/10/23 08:09 Freq: Status: Active Protocol: Activity Type Activity Date Activity User E-sign Co-sign Detail Recorded Client Recorded Date Recorded By Document 04/10/23 08:49 RB Desktop 04/10/23 08:51 RB 04/10/23 08:49 Wound Care Center Nurse 3 3. L lateral ankle -Primary Dressing Applied Mepilex Border -Other Dressing aquacel -Mepilex Border 1 Left -Tubular Bandage Single Layer -Size of Tubigrip Used Size E -Size E ($) 1 Treatment Response Procedure Tolerated Well Pain Scale: 0-10 Numeric Is Patient Pain Free? Yes Teaching: Wound Center Dressing Your Wound -Person Taught Patient -Teaching Method Discussion, Demonstration -Response to teaching Verbalize understanding WC - Visit Discharge Discharge Condition Stable Ambulatory Status Ambulatory Transportation Private Auto Medication Reconcilliation completed & No provided to patient/care provider Clinical Summary of Care Provided Yes Assessment/Plan Assessment/Plan (1) Essential hypertension: CODE(S): I10 - Essential (primary) hypertension (2) Uncontrolled type 2 diabetes mellitus with hyperglycemia: CODE(S): E11.65 - Type 2 diabetes mellitus with hyperglycemia (3) Nonhealing nonsurgical wound: CODE(S): T14.8XXA - Other injury of unspecified body region, initial encounter (4) Atherosclerosis of coronary artery of [place] heart without angina pectoris: CODE(S): I25.10 - Atherosclerotic heart disease of [place] coronary artery without angina pectoris QUALIFIERS: Coronary Disease-Associated Artery/Lesion type: [place] artery Qualified Code(s): I25.10 - Atherosclerotic heart disease of [place] coronary artery without angina pectoris (5) Chronic ulcer of left ankle with fat layer exposed: CODE(S): L97.322 - Non-pressure chronic ulcer of left ankle with fat layer exposed (6) Diabetic ulcer of left ankle associated with type 2 diabetes mellitus, with fat layer exposed: CODE(S): E11.622 - Type 2 diabetes mellitus with other skin ulcer; L97.322 - Non-pressure chronic ulcer of left ankle with fat layer exposed (7) Diabetes: CODE(S): E11.9 - Type 2 diabetes mellitus without complications QUALIFIERS: Diabetes mellitus type: type 2 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 At home wound-care instructions: Epifix #6 applied today per [place]ag operator guidelines, rehydrated with sterile saline, covered with wound veil and secured with steri-strips. Aquacel Extra as a secondary dressing and cover with foam silicone bordered dressing and change Aquacel Extra and foam dressing daily. Keep dressing clean and dry. Will have him use tubigrip compression to left leg to help with edema. Off-loading: The patient was instructed to avoid pressure and friction on the affected areas. Reposition every 2 hours at minimum. Avoid prolonged standing and/or dangling of legs. When seated, feet should be elevated at chest level. Frequent ambulation is encouraged. Diet: Patient encouraged to increase protein intake while taking caution to avoid high carbohydrate and/or sugar intake. Labs/cultures/imaging: Patient pulled up on his phone and PANCHO left ankle in May 2022 was 1.07. Culture 01/09/23 positive for Pseudomonas, Klebsiella, Enterococcus and Anaerobic bacteria. Venous studies unremarkable. PANCHO left ankle 01/14 was 1.37 CTA with run-off done at 01/21/23 and there is some stenosis in the anterior tibial artery but blood flow to dorsalis pedis is present. Follow-up: Return in 1 week for wound care follow up. Return sooner or report to the emergency room should symptoms worsen, or new symptoms arise. Note: [employer] speech recognition private branch exchange service advisor software was used to create portions of this document. Sound-alike and misspelled words, as well as other private branch exchange service advisor errors may be contained in the documentation.
[2023-04-17 08:07] VITALS: BP 149/83; PULSE 82; RESP 18; TEMP 36.4; BMI 33.1
--- NOTE | 2023-04-17 13:03 | PCM.WC.PN ---
History of Present Illness Date of Service: 04/17/23 Chief Complaint: non healing ulcer of left lateral malleolus/ankle History of Wound: Be is a 67-year-old white male with type 2 diabetes and a history of poor healing wounds that presents to the wound center today for evaluation and treatment of a nonhealing ulcer of his left lateral ankle/malleolus that started approximately 4 weeks ago. He thinks that his boot was rubbing the area and then noticed that there was drainage and was treating with a bandaid and antibiotic ointment with no improvement and increased drainage and erythema and swelling and then was seen by his PCP who started him on doxycyline and there was still no improvement so he gave him 1 dose of IM Rocephin and then started him on Cephalexin and Bactrim for which he has been taking almost 10 days of treatment and has 5 more days left of medication. He was then referred to the wound center for treatment. He has been covering the wound with gauze and antibiotic ointment but leaving it open to air when he is at home. He appears to have Charcot of the right foot and a collapsed right arch. He has had vascular testing by Dr. Flores his reliability manager at the [facility] last year. His last A1C is unknown. He denies fever, chills, increased erythema or drainage and has been taking his antibiotics as instructed. Subjective Subjective Calvin returns for follow up of ulcer of lateral left ankle. Ulcer is improved in depth and granulation. He tolerated treatment with Epifix and Aquacel Extra. Calvin's aerial installer stopped his hydroxyurea due to the potential of this being a factor to his delayed wound healing. Wound culture 01/09/23 was positive for anaerobic bacteria, Pseudomonas, Enterococcus and Klebsiella. He was started on Augmentin and Ciprofloxacin and completed treatment. He had vascular testing and venous insufficiency not identified. ABIs were WNL and not changed from previous. He had CTA with runoff scheduled on 01/21/23 which showed some areas of stenosis in left leg but there was blood flow to dorsalis pedis artery. He had consultation with vascular surgery on 02/02/[address] Gibson prefers to defer any surgical intervention for now as he does not think there is significant arterial disease in his left leg contributing to his difficulty healing. Denies fever, chills, increased drainage or pain. Objective Data Objective Data Vital Signs: Vital Signs Temp Pulse Resp BP O2 Del Method 97.6 F L 82 18 149/83 H Room Air 04/17/23 08:07 04/17/23 08:07 04/17/23 08:07 04/17/23 08:07 04/17/23 08:07 Oxygen Delivery Method Room Air Weight: 112.491 kg Body Mass Index (BMI) 33.1 Physical Exam Const alert, oriented x3 and no apparent distress General Appearance: cooperative and comfortable HEENT normocephalic and head/scalp atraumatic Resp normal respiratory effort Effort and Inspection: able to speak in complete sentences Cardio regular rate and regular rhythm Skin Wounds: wounds noted Wound Narrative: as in clinical panel Psych mental status grossly normal, thought process normal, cooperative and affect normal Debridement Note Debridement Note Wound debrided: left lateral ankle Laterality: Left Wound Grade/Stage: Soler grade 2 Type of Debridement: Excisional debridement Anesthesia Used: 4% Lidocaine Solution, 5% Lidocaine Gel and Cetacaine Depth: Down to and including healthy tissue and in the subcutaneous layer Percentage of wound debrided: 100 Instrument Used: 3mm curette Tissue Removed: Yellow slough, devitalized tissue Severity: Fat Layer Exposed Amount of bleeding with debridement: Mild Bleeding Controlled with: Compression and gauze Patient tolerated procedure: Patient tolerated procedure well Post-Debridement Measurements and Additional Note: Post-Debridement Measurements/Treatment - Nurse 1 - General Ulcer Assessment Start: 04/10/23 08:09 Freq: Status: Active Protocol: DOMINIQUE.MILI Activity Type Activity Date Activity User E-sign Co-sign Detail Recorded Client Recorded Date Recorded By Document 04/10/23 08:09 RB Desktop 04/10/23 08:14 RB Document 04/17/23 08:07 KW Desktop 04/17/23 08:21 KW 04/10/23 04/17/23 08:09 08:07 - Today's Visit Information Type of service Follow-up Visit Follow-up Visit (Physician/SCRAP HOIST OPERATOR (Physician/SCRAP HOIST OPERATOR ) ) Arrival Mode Ambulatory Ambulatory Transfer Assistance None Accompanied by Patient Identification Verified (Name & Yes Yes ) Patient Requires Transmission-Based No Precautions Height and Weight Body Mass Index (BMI) 33.1 33.1 BMI Classification Obese Obese Vital Signs Temperature (97.8 F-99.1 F) 96.3 F L 97.6 F L Temperature Source Temporal Temporal Pulse Rate (60-100) 82 82 Pulse Location Monitor Monitor Respiratory Rate (12-18) 18 18 Respiratory rate source Observation Ausculation Oxygen Delivery Method Room Air Blood Pressure (90/60-120/80) 133/80 H 149/83 H Blood Pressure Mean (mm Hg) 97 105 Source Monitor Monitor Position Semi-Fowlers Semi-Fowlers Blood Pressure Location Left Arm Left Arm History Since Last Visit- (Skip if this is Patient's initial visit) Have you changed medications since your No No last visit? Any new allergies or adverse reactions No No Had a fall/change in ADL's that may No No increase risk of falls Signs or symptoms of abuse and/or No No neglect since last visit Have you been in the hospital since your No No last visit? Has dressing in place as prescribed Yes Yes Has compression in place as prescribed Yes Yes Has offloadiing in place as prescribed No No Experienced any changes in pain level or No management Left Footwear Regular Shoe Right Footwear Regular Shoe Pain Scale: 0-10 Numeric Is Patient Pain Free? Yes Yes WC - Nurse 1 - General Ulcer Measurement Start: 04/10/23 08:09 Freq: Status: Active Protocol: Activity Type Activity Date Activity User E-sign Co-sign Detail Recorded Client Recorded Date Recorded By Document 04/10/23 08:09 RB Desktop 04/10/23 08:14 RB Document 04/17/23 08:07 KW Desktop 04/17/23 08:21 KW 04/10/23 04/17/23 08:09 08:07 Wound Center Nurse 1 #4 Left Heel -Combined with other wound No -Current Size (cm) - Length 0.1 0 -Current Size (cm) - Width 0.1 0 -Current Size (cm) - Depth 0.1 0 -Total Square Cm 0.01 0 -Tunneling No -Undermining/Tunneling No -Circular Undermining No -Exudate Amt Small -Exudate Type Serosanguineous -Wound Margin Distinct, Outline Attached -Granulation Amt Medium (34-66%) -Granulation Quality [place] -Slough/Fibrin Yes -Necrosis Amt Small (1-33%) -Necrotic Tissue Type Adherent Slough -Structure Exposed N/A -Texture ([place]-wound Skin Appearance) Assessed -Moisture ([place]da-wound Skin Appearance) Assessed -Color ([place]da-wound Skin Appearance) Assessed -Temperature ([place]-wound Skin No Abnormality Appearance) (Pt Warm) -Tenderness on Palpation ([place]-wound No Skin Appearance) -Ulcer Cleansing Wound Cleanser -Foul Odor after Cleansing No No 3. L lateral ankle -Combined with other wound No -Current Size (cm) - Length 0.8 1.0 -Current Size (cm) - Width 0.8 0.9 -Current Size (cm) - Depth 0.3 0.4 -Total Square Cm 0.64 0.90 -Photo Taken Yes -Tunneling No -Undermining/Tunneling No -Circular Undermining No -Exudate Amt Large Small -Exudate Type Serosanguineous Serosanguineous -Wound Margin Thickened & Distinct, Rolled Under Outline Attached -Granulation Amt Medium (34-66%) Medium (34-66%) -Granulation Quality [place],Red [place] -Slough/Fibrin Yes -Necrosis Amt Medium (34-66%) Medium (34-66%) -Necrotic Tissue Type Adherent Slough Adherent Slough -Structure Exposed N/A -Texture ([place]ricelda-wound Skin Appearance) Assessed Assessed -Moisture ([place]ricelda-wound Skin Appearance) Assessed Assessed, Maceration -Color ([place]elda-wound Skin Appearance) Erythema Assessed, Erythema -Temperature ([place]da-wound Skin No Abnormality No Abnormality Appearance) (Pt Warm) (Pt Warm) -Tenderness on Palpation (Gricelda-wound No Yes Skin Appearance) -Ulcer Cleansing Wound Cleanser Soap and Water -Foul Odor after Cleansing No -Anesthetic Used 5% Lidocaine 5% Lidocaine Gel Gel Lower Limb Edema Present Yes Left Calf (cm) 36.3 37 Left Ankle (cm) 25 24.8 WC - Nurse 2 - General Ulcer CM Notes Start: 04/10/23 08:09 Freq: Status: Active Protocol: Activity Type Activity Date Activity User E-sign Co-sign Detail Recorded Client Recorded Date Recorded By Document 04/10/23 08:24 GM Desktop 04/10/23 08:36 GM Edit Result 04/10/23 08:24 GM (1) Desktop 04/13/23 07:38 PL Document 04/17/23 08:27 GM Desktop 04/17/23 08:37 GM (1) #4 Left Heel - Apply Skin Sub - 1st 25 sq cm - Legs => 1 04/10/23 04/17/23 08:24 08:27 Wound Center Nurse 2 #4 Left Heel -Time 08:24 08:28 -Correct Patient Yes -Correct Side, Site, Position Yes -Wound/Ulcer Outcome Healed- Not Healed Epithelialized -Ulcer Cleansing Rinsed/ Irrigated with Saline -Foul Odor after Cleansing No -Apply Skin Sub - 1st 25 sq cm - Legs 1 3. L lateral ankle -Time 08:24 08:28 -Correct Patient Yes Yes -Correct Side, Site, Position Yes Yes -Correct Procedure Yes Yes -Procedure Performed Yes Yes -Type of Procedure Debridement Debridement -Clinical Debridement Subcutaneous Subcutaneous -Tissue Removed Subcutaneous Subcutaneous -Post Debridement (cm) - Length 1.1 0.9 -Post Debridement (cm) - Width 0.8 0.7 -Post Debridement (cm) - Depth 0.2 0.3 -Total Square (Post) (cm) 0.88 0.63 -Area of Debridement (cm) - Length 1.1 0.9 -Area of Debridement (cm) - Width 0.8 0.7 -Total Square (Area) (cm) 0.88 0.63 -Tunneling No No -Undermining/Tunneling Yes No -Undermining/Tunneling Starts (O'clock 3 ) -Undermining/Tunneling Ends (O'clock) 4 -Maximum Distance (cm) 0.2 -Circular Undermining No -Wound/Ulcer Outcome Not Healed Not Healed -Ulcer Cleansing Rinsed/ Rinsed/ Irrigated with Irrigated with Saline Saline -Foul Odor after Cleansing No No -Bioengineered Tissue Yes -Type of Bioengineered Tissue Epifix 18mm Epifix 18mm Disc Disc -Expiration Date 01/04/28 01/04/28 -Product Lot Number [id number] -Percent Used 100 100 -Lot number of Saline Used [id number] -Bleeding Controlled with NA Pressure -Treatment Response Procedure Procedure Tolerated Well Tolerated Well -Debridement - Subq, 1st 20sq cm No No -Epifix 18mm Disc 3 3 Pain Scale: 0-10 Numeric Is Patient Pain Free? Yes Yes WC - Nurse 3 - General Ulcer D/C NN Start: 04/10/23 08:09 Freq: Status: Active Protocol: Activity Type Activity Date Activity User E-sign Co-sign Detail Recorded Client Recorded Date Recorded By Document 04/10/23 08:49 RB Desktop 04/10/23 08:51 RB Document 04/17/23 08:49 KW Desktop 04/17/23 08:50 KW 04/10/23 04/17/23 08:49 08:49 Wound Care Center Nurse 3 3. L lateral ankle -Ulcer Cleansing Rinsed/ Irrigated with Saline -Primary Dressing Applied Mepilex Border Aquacel Extra, Mepilex Border -Other Dressing aquacel -Aquacel Extra 1 -Mepilex Border 1 1 Left -Tubular Bandage Single Layer Single Layer -Size of Tubigrip Used Size E Size D -Size D ($) 1 -Size E ($) 1 Treatment Response Procedure Tolerated Well Pain Scale: 0-10 Numeric Is Patient Pain Free? Yes Yes Teaching: Wound Center Dressing Your Wound -Person Taught Patient -Teaching Method Discussion, Demonstration -Response to teaching Verbalize understanding WC - Visit Discharge Discharge Condition Stable Stable Ambulatory Status Ambulatory Ambulatory Transportation Private Auto Private Auto Medication Reconcilliation completed & No No provided to patient/care provider Clinical Summary of Care Provided Yes Yes Assessment/Plan Assessment/Plan (1) Essential hypertension: CODE(S): I10 - Essential (primary) hypertension (2) Uncontrolled type 2 diabetes mellitus with hyperglycemia: CODE(S): E11.65 - Type 2 diabetes mellitus with hyperglycemia (3) Nonhealing nonsurgical wound: CODE(S): T14.8XXA - Other injury of unspecified body region, initial encounter (4) Atherosclerosis of coronary artery of [place] heart without angina pectoris: CODE(S): I25.10 - Atherosclerotic heart disease of [place] coronary artery without angina pectoris QUALIFIERS: Coronary Disease-Associated Artery/Lesion type: [place] artery Qualified Code(s): I25.10 - Atherosclerotic heart disease of [place] coronary artery without angina pectoris (5) Chronic ulcer of left ankle with fat layer exposed: CODE(S): L97.322 - Non-pressure chronic ulcer of left ankle with fat layer exposed (6) Diabetic ulcer of left ankle associated with type 2 diabetes mellitus, with fat layer exposed: CODE(S): E11.622 - Type 2 diabetes mellitus with other skin ulcer; L97.322 - Non-pressure chronic ulcer of left ankle with fat layer exposed (7) Diabetes: CODE(S): E11.9 - Type 2 diabetes mellitus without complications QUALIFIERS: Diabetes mellitus type: type 2 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 At home wound-care instructions: Epifix #7 applied today per oncology navigator guidelines, rehydrated with sterile saline, covered with wound veil and secured with steri-strips. Aquacel Extra as a secondary dressing and cover with foam silicone bordered dressing and change Aquacel Extra and foam dressing daily. Keep dressing clean and dry. Will have him use tubigrip compression to left leg to help with edema. Off-loading: The patient was instructed to avoid pressure and friction on the affected areas. Reposition every 2 hours at minimum. Avoid prolonged standing and/or dangling of legs. When seated, feet should be elevated at chest level. Frequent ambulation is encouraged. Diet: Patient encouraged to increase protein intake while taking caution to avoid high carbohydrate and/or sugar intake. Labs/cultures/imaging: Patient pulled up on his phone and PANCHO left ankle in May 2022 was 1.07. Culture 01/09/23 positive for Pseudomonas, Klebsiella, Enterococcus and Anaerobic bacteria. Venous studies unremarkable. PANCHO left ankle 01/14 was 1.37 CTA with run-off done at 01/21/23 and there is some stenosis in the anterior tibial artery but blood flow to dorsalis pedis is present. Follow-up: Return in 1 week for wound care follow up. Return sooner or report to the emergency room should symptoms worsen, or new symptoms arise. Note: adflyer speech recognition recycler forklift driver truck driver software was used to create portions of this document. Sound-alike and misspelled words, as well as other recycler forklift driver truck driver errors may be contained in the documentation.
[2023-04-24 08:06] VITALS: BP 138/84; PULSE 82; RESP 18; TEMP 36.3; BMI 33.1
--- NOTE | 2023-04-24 09:02 | PCM.WC.PN ---
History of Present Illness Date of Service: 04/24/23 Chief Complaint: non healing ulcer of left lateral malleolus/ankle History of Wound: Be is a 67-year-old white male with type 2 diabetes and a history of poor healing wounds that presents to the wound center today for evaluation and treatment of a nonhealing ulcer of his left lateral ankle/malleolus that started approximately 4 weeks ago. He thinks that his boot was rubbing the area and then noticed that there was drainage and was treating with a bandaid and antibiotic ointment with no improvement and increased drainage and erythema and swelling and then was seen by his PCP who started him on doxycyline and there was still no improvement so he gave him 1 dose of IM Rocephin and then started him on Cephalexin and Bactrim for which he has been taking almost 10 days of treatment and has 5 more days left of medication. He was then referred to the wound center for treatment. He has been covering the wound with gauze and antibiotic ointment but leaving it open to air when he is at home. He appears to have Charcot of the right foot and a collapsed right arch. He has had vascular testing by Dr. Flores his household appliance repairer at the [facility] last year. His last A1C is unknown. He denies fever, chills, increased erythema or drainage and has been taking his antibiotics as instructed. Subjective Subjective Calvin returns for follow up of ulcer of lateral left ankle. Ulcer is improved in depth and granulation. He tolerated treatment with Epifix and Aquacel Extra. Calvin's manager commercial stopped his hydroxyurea due to the potential of this being a factor to his delayed wound healing. Wound culture 01/09/23 was positive for anaerobic bacteria, Pseudomonas, Enterococcus and Klebsiella. He was started on Augmentin and Ciprofloxacin and completed treatment. He had vascular testing and venous insufficiency not identified. ABIs were WNL and not changed from previous. He had CTA with runoff scheduled on 01/21/23 which showed some areas of stenosis in left leg but there was blood flow to dorsalis pedis artery. He had consultation with vascular surgery on 02/02/[address] Gibson prefers to defer any surgical intervention for now as he does not think there is significant arterial disease in his left leg contributing to his difficulty healing. Denies fever, chills, increased drainage or pain. Objective Data Objective Data Vital Signs: Vital Signs Temp Pulse Resp BP O2 Del Method 97.4 F L 82 18 138/84 H Room Air 04/24/23 08:06 04/24/23 08:06 04/24/23 08:06 04/24/23 08:06 04/17/23 08:07 Oxygen Delivery Method Room Air Weight: 112.491 kg Body Mass Index (BMI) 33.1 Physical Exam Const alert, oriented x3 and no apparent distress General Appearance: cooperative and comfortable HEENT normocephalic and head/scalp atraumatic Resp normal respiratory effort Effort and Inspection: able to speak in complete sentences Cardio regular rate and regular rhythm Skin Wounds: wounds noted Wound Narrative: as in clinical panel Psych mental status grossly normal, thought process normal, cooperative and affect normal Debridement Note Debridement Note Wound debrided: left lateral ankle Laterality: Left Wound Grade/Stage: Soler grade 2 Type of Debridement: Excisional debridement Anesthesia Used: 4% Lidocaine Solution, 5% Lidocaine Gel and Cetacaine Depth: Down to and including healthy tissue and in the subcutaneous layer Percentage of wound debrided: 100 Instrument Used: 3mm curette Tissue Removed: Yellow slough, devitalized tissue Severity: Fat Layer Exposed Amount of bleeding with debridement: Mild Bleeding Controlled with: Compression and gauze Patient tolerated procedure: Patient tolerated procedure well Post-Debridement Measurements and Additional Note: Post-Debridement Measurements/Treatment - Nurse 1 - General Ulcer Assessment Start: 04/10/23 08:09 Freq: Status: Active Protocol: AIXA Activity Type Activity Date Activity User E-sign Co-sign Detail Recorded Client Recorded Date Recorded By Document 04/10/23 08:09 RB Desktop 04/10/23 08:14 RB Document 04/17/23 08:07 KW Desktop 04/17/23 08:21 KW Document 04/24/23 08:06 RB Desktop 04/24/23 08:08 RB 04/10/23 04/17/23 04/24/23 08:09 08:07 08:06 - Today's Visit Information Type of service Follow-up Visit Follow-up Visit Follow-up Visit (Physician/SR. VENDOR MANAGEMENT ASSOCIATE (Physician/SR. VENDOR MANAGEMENT ASSOCIATE (Physician/SR. VENDOR MANAGEMENT ASSOCIATE ) ) ) Arrival Mode Ambulatory Ambulatory Ambulatory Transfer Assistance None None Accompanied by Patient Identification Verified (Name & Yes Yes Yes ) Patient Requires Transmission-Based No No Precautions Height and Weight Body Mass Index (BMI) 33.1 33.1 33.1 BMI Classification Obese Obese Obese Vital Signs Temperature (97.8 F-99.1 F) 96.3 F L 97.6 F L 97.4 F L Temperature Source Temporal Temporal Temporal Pulse Rate (60-100) 82 82 82 Pulse Location Monitor Monitor Monitor Respiratory Rate (12-18) 18 18 18 Respiratory rate source Observation Ausculation Observation Oxygen Delivery Method Room Air Blood Pressure (90/60-120/80) 133/80 H 149/83 H 138/84 H Blood Pressure Mean (mm Hg) 97 105 102 Source Monitor Monitor Monitor Position Semi-Fowlers Semi-Fowlers Semi-Fowlers Blood Pressure Location Left Arm Left Arm Left Arm History Since Last Visit- (Skip if this is Patient's initial visit) Have you changed medications since your No No No last visit? Any new allergies or adverse reactions No No No Had a fall/change in ADL's that may No No No increase risk of falls Signs or symptoms of abuse and/or No No No neglect since last visit Have you been in the hospital since your No No No last visit? Has dressing in place as prescribed Yes Yes Yes Has compression in place as prescribed Yes Yes Yes Has offloadiing in place as prescribed No No No Experienced any changes in pain level or No No management Left Footwear Regular Shoe Right Footwear Regular Shoe Pain Scale: 0-10 Numeric Is Patient Pain Free? Yes Yes Yes WC - Nurse 1 - General Ulcer Measurement Start: 04/10/23 08:09 Freq: Status: Active Protocol: Activity Type Activity Date Activity User E-sign Co-sign Detail Recorded Client Recorded Date Recorded By Document 04/10/23 08:09 RB Desktop 04/10/23 08:14 RB Document 04/17/23 08:07 KW Desktop 04/17/23 08:21 KW Document 04/24/23 08:06 RB Desktop 04/24/23 08:08 RB 04/10/23 04/17/23 04/24/23 08:09 08:07 08:06 Wound Center Nurse 1 #4 Left Heel -Combined with other wound No -Current Size (cm) - Length 0.1 0 -Current Size (cm) - Width 0.1 0 -Current Size (cm) - Depth 0.1 0 -Total Square Cm 0.01 0 -Tunneling No -Undermining/Tunneling No -Circular Undermining No -Exudate Amt Small -Exudate Type Serosanguineous -Wound Margin Distinct, Outline Attached -Granulation Amt Medium (34-66%) -Granulation Quality [place] -Slough/Fibrin Yes -Necrosis Amt Small (1-33%) -Necrotic Tissue Type Adherent Slough -Structure Exposed N/A -Texture (Gricelda-wound Skin Appearance) Assessed -Moisture (Gricelda-wound Skin Appearance) Assessed -Color ([place]elda-wound Skin Appearance) Assessed -Temperature ([place]da-wound Skin No Abnormality Appearance) (Pt Warm) -Tenderness on Palpation ([place]da-wound No Skin Appearance) -Ulcer Cleansing Wound Cleanser -Foul Odor after Cleansing No No 3. L lateral ankle -Combined with other wound No No -Current Size (cm) - Length 0.8 1.0 0.7 -Current Size (cm) - Width 0.8 0.9 0.7 -Current Size (cm) - Depth 0.3 0.4 0.3 -Total Square Cm 0.64 0.90 0.49 -Photo Taken Yes Yes -Tunneling No No -Undermining/Tunneling No No -Circular Undermining No No -Exudate Amt Large Small Medium -Exudate Type Serosanguineous Serosanguineous Serosanguineous -Wound Margin Thickened & Distinct, Thickened & Rolled Under Outline Rolled Under Attached -Granulation Amt Medium (34-66%) Medium (34-66%) Medium (34-66%) -Granulation Quality [place],Red [place]angley -Slough/Fibrin Yes Yes -Necrosis Amt Medium (34-66%) Medium (34-66%) Medium (34-66%) -Necrotic Tissue Type Adherent Slough Adherent Slough Adherent Slough -Structure Exposed N/A N/A -Texture (Gricelda-wound Skin Appearance) Assessed Assessed Assessed -Moisture (Gricelda-wound Skin Appearance) Assessed Assessed, Assessed Maceration -Color (Gricelda-wound Skin Appearance) Erythema Assessed, Erythema Erythema -Temperature ([place]da-wound Skin No Abnormality No Abnormality No Abnormality Appearance) (Pt Warm) (Pt Warm) (Pt Warm) -Tenderness on Palpation ([place]elda-wound No Yes No Skin Appearance) -Ulcer Cleansing Wound Cleanser Soap and Water Wound Cleanser -Foul Odor after Cleansing No No -Anesthetic Used 5% Lidocaine 5% Lidocaine 5% Lidocaine Gel Gel Gel Lower Limb Edema Present Yes Left Calf (cm) 36.3 37 Left Ankle (cm) 25 24.8 WC - Nurse 2 - General Ulcer CM Notes Start: 04/10/23 08:09 Freq: Status: Active Protocol: Activity Type Activity Date Activity User E-sign Co-sign Detail Recorded Client Recorded Date Recorded By Document 04/10/23 08:24 GM Desktop 04/10/23 08:36 GM Edit Result 04/10/23 08:24 GM (1) Desktop 04/13/23 07:38 PL Document 04/17/23 08:27 GM Desktop 04/17/23 08:37 GM Edit Result 04/17/23 08:27 GM (2) [id number] 04/20/23 07:15 PL Document 04/24/23 08:14 GM Desktop 04/24/23 08:23 GM (1) #4 Left Heel - Apply Skin Sub - 1st 25 sq cm - Legs => 1 (2) 3. L lateral ankle - Apply Skin Sub - 1st 25 sq cm - Legs => 1 04/10/23 04/17/23 04/24/23 08:24 08:27 08:14 Wound Center Nurse 2 #4 Left Heel -Time 08:24 08:28 -Correct Patient Yes -Correct Side, Site, Position Yes -Wound/Ulcer Outcome Healed- Not Healed Epithelialized -Ulcer Cleansing Rinsed/ Irrigated with Saline -Foul Odor after Cleansing No -Apply Skin Sub - 1st 25 sq cm - Legs 1 3. L lateral ankle -Time 08:24 08:28 08:14 -Correct Patient Yes Yes Yes -Correct Side, Site, Position Yes Yes Yes -Correct Procedure Yes Yes Yes -Procedure Performed Yes Yes Yes -Type of Procedure Debridement Debridement Debridement -Clinical Debridement Subcutaneous Subcutaneous Subcutaneous -Tissue Removed Subcutaneous Subcutaneous Subcutaneous -Post Debridement (cm) - Length 1.1 0.9 0.7 -Post Debridement (cm) - Width 0.8 0.7 0.4 -Post Debridement (cm) - Depth 0.2 0.3 0.3 -Total Square (Post) (cm) 0.88 0.63 0.28 -Area of Debridement (cm) - Length 1.1 0.9 0.7 -Area of Debridement (cm) - Width 0.8 0.7 0.4 -Total Square (Area) (cm) 0.88 0.63 0.28 -Tunneling No No No -Undermining/Tunneling Yes No -Undermining/Tunneling Starts (O'clock 3 ) -Undermining/Tunneling Ends (O'clock) 4 -Maximum Distance (cm) 0.2 -Circular Undermining No No -Wound/Ulcer Outcome Not Healed Not Healed Not Healed -Ulcer Cleansing Rinsed/ Rinsed/ Rinsed/ Irrigated with Irrigated with Irrigated with Saline Saline Saline -Foul Odor after Cleansing No No No -Bioengineered Tissue Yes Yes -Type of Bioengineered Tissue Epifix 18mm Epifix 18mm Epifix 18mm Disc Disc Disc -Expiration Date 01/04/28 01/04/28 01/04/28 -Product Lot Number [id number] -Percent Used 100 100 100 -Lot number of Saline Used [id number] -Bleeding Controlled with NA Pressure Pressure -Treatment Response Procedure Procedure Procedure Tolerated Well Tolerated Well Tolerated Well -Debridement - Subq, 1st 20sq cm No No No -Apply Skin Sub - 1st 25 sq cm - Legs 1 -Epifix 18mm Disc 3 3 3 Pain Scale: 0-10 Numeric Is Patient Pain Free? Yes Yes Yes WC - Nurse 3 - General Ulcer D/C NN Start: 04/10/23 08:09 Freq: Status: Active Protocol: Activity Type Activity Date Activity User E-sign Co-sign Detail Recorded Client Recorded Date Recorded By Document 04/10/23 08:49 RB Desktop 04/10/23 08:51 RB Document 04/17/23 08:49 KW Desktop 04/17/23 08:50 KW Document 04/24/23 08:41 Desktop 04/24/23 08:43 04/10/23 04/17/23 04/24/23 08:49 08:49 08:41 Wound Care Center Nurse 3 3. L lateral ankle -Ulcer Cleansing Rinsed/ Not Cleansed Irrigated with Saline -Negative Pressure Wound Therapy N/A -Primary Dressing Applied Mepilex Border Aquacel Extra, Aquacel Extra, Mepilex Border Mepilex Border -Other Dressing aquacel -Aquacel Extra 1 1 -Mepilex Border 1 1 1 Left -Lotion applied to leg before No compression wrap -Tubular Bandage Single Layer Single Layer Single Layer -Size of Tubigrip Used Size E Size D Size D -Size D ($) 1 1 -Size E ($) 1 Treatment Response Procedure Tolerated Well Pain Scale: 0-10 Numeric Is Patient Pain Free? Yes Yes Yes Teaching: Wound Center Dressing Your Wound -Person Taught Patient Patient -Teaching Method Discussion, Discussion Demonstration -Response to teaching Verbalize Verbalize understanding understanding WC - Visit Discharge Discharge Condition Stable Stable Stable Ambulatory Status Ambulatory Ambulatory Ambulatory Transportation Private Auto Private Auto Private Auto Medication Reconcilliation completed & No No Yes provided to patient/care provider Clinical Summary of Care Provided Yes Yes Yes Assessment/Plan Assessment/Plan (1) Essential hypertension: CODE(S): I10 - Essential (primary) hypertension (2) Uncontrolled type 2 diabetes mellitus with hyperglycemia: CODE(S): E11.65 - Type 2 diabetes mellitus with hyperglycemia (3) Nonhealing nonsurgical wound: CODE(S): T14.8XXA - Other injury of unspecified body region, initial encounter (4) Atherosclerosis of coronary artery of [place] heart without angina pectoris: CODE(S): I25.10 - Atherosclerotic heart disease of [place] coronary artery without angina pectoris QUALIFIERS: Coronary Disease-Associated Artery/Lesion type: [place] artery Qualified Code(s): I25.10 - Atherosclerotic heart disease of [place] coronary artery without angina pectoris (5) Chronic ulcer of left ankle with fat layer exposed: CODE(S): L97.322 - Non-pressure chronic ulcer of left ankle with fat layer exposed (6) Diabetic ulcer of left ankle associated with type 2 diabetes mellitus, with fat layer exposed: CODE(S): E11.622 - Type 2 diabetes mellitus with other skin ulcer; L97.322 - Non-pressure chronic ulcer of left ankle with fat layer exposed (7) Diabetes: CODE(S): E11.9 - Type 2 diabetes mellitus without complications QUALIFIERS: Diabetes mellitus type: type 2 Diabetes mellitus terminal gauger insulin use: unspecified usp insulin use status Diabetes mellitus complication status: with skin complications Diabetes mellitus complication detail: with other skin ulcer Qualified Code(s): E11.622 - Type 2 diabetes mellitus with other skin ulcer; L98.499 - Non-pressure chronic ulcer of skin of other sites with unspecified severity PLAN: Plan Debridement performed today in clinic as annotated above. At home wound-care instructions: Epifix #8 applied today per tracer powder blender guidelines, rehydrated with sterile saline, covered with wound veil and secured with steri-strips. Aquacel Extra as a secondary dressing and cover with foam silicone bordered dressing and change Aquacel Extra and foam dressing every other day. Keep dressing clean and dry. Will have him use tubigrip compression to left leg to help with edema. Off-loading: The patient was instructed to avoid pressure and friction on the affected areas. Reposition every 2 hours at minimum. Avoid prolonged standing and/or dangling of legs. When seated, feet should be elevated at chest level. Frequent ambulation is encouraged. Diet: Patient encouraged to increase protein intake while taking caution to avoid high carbohydrate and/or sugar intake. Labs/cultures/imaging: Patient pulled up on his phone and PANCHO left ankle in May 2022 was 1.07. Culture 01/09/23 positive for Pseudomonas, Klebsiella, Enterococcus and Anaerobic bacteria. Venous studies unremarkable. PANCHO left ankle 01/14 was 1.37 CTA with run-off done at 01/21/23 and there is some stenosis in the anterior tibial artery but blood flow to dorsalis pedis is present. Follow-up: Return in 2 weeks for wound care follow up. Return sooner or report to the emergency room should symptoms worsen, or new symptoms arise. Note: [place] [employer] speech recognition supervisor pumping software was used to create portions of this document. Sound-alike and misspelled words, as well as other supervisor pumping errors may be contained in the documentation.
== END 2023-05-05 23:59 | disposition home or self-care (01) ==
LOC: WC 08:00
PROVIDERS: PCP Family Medicine; Referring Provider Family Medicine; Visit Provider Family Medicine
DX: E11.622 Type 2 diabetes mellitus with other skin ulcer (principal); L97.322 Non-pressure chronic ulcer of left ankle with fat layer exposed; E11.65 Type 2 diabetes mellitus with hyperglycemia; I25.10 Atherosclerotic heart disease of native coronary artery without angina pectoris; I10 Essential (primary) hypertension
CPT/HCPCS: 15271; Q4186

== ENCOUNTER → 2023-05-18 | Outpatient (CLI) | payer MEDICARE, OTHER, SELFPAY ==
--- NOTE | 2023-05-18 13:10 | RAD_ITS ---
STUDY: X-RAY RIGHT FOOT, FIRST TOE REASON FOR EXAM: Male, 67 years old. contusion TECHNIQUE: 3 view(s) of the first toe were obtained. COMPARISON: None. FINDINGS: Normal visualized metatarsus. Normal metatarsophalangeal (M.T.P) joint. Normal interphalangeal joints. Normal proximal phalanx. Comminuted fracture involving the distal phalanx with intra-articular component and approximate 2.2 mm separation along the major fracture line. Soft tissue swelling along the first toe noted. RAD/Toe(s) Min 2 Views IMPRESSION: Distal phalangeal fracture of the first toe as described. Electronically Signed: Eva West MD at 20:33 EST ,
== END | disposition home or self-care (01) ==
LOC: MTRAD 13:03
PROVIDERS: PCP Family Medicine; Referring Provider Family Medicine; Visit Provider Family Medicine
DX: S90.212A Contusion of left great toe with damage to nail, initial encounter (principal)
CPT/HCPCS: 73660

== ENCOUNTER 2023-05-22 08:00 | Outpatient (RCR) | payer MEDICARE, OTHER, SELFPAY ==
[2023-05-06 00:21] VITALS: BP 138/84; PULSE 82; RESP 18; TEMP 36.3; BMI 33.1
[2023-05-08 08:04] VITALS: BP 150/88; PULSE 86; RESP 16; TEMP 36; BMI 33.1
--- NOTE | 2023-05-08 09:19 | PN.PCM_ITS ---
History of Present Illness Date of Service: 05/08/23 Chief Complaint: non healing ulcer of left lateral malleolus/ankle History of Wound: Be is a 67-year-old white male with type 2 diabetes and a history of poor healing wounds that presents to the wound center today for evaluation and treatment of a nonhealing ulcer of his left lateral ankle/malleolus that started approximately 4 weeks ago. He thinks that his boot was rubbing the area and then noticed that there was drainage and was treating with a bandaid and antibiotic ointment with no improvement and increased drainage and erythema and swelling and then was seen by his PCP who started him on doxycyline and there was still no improvement so he gave him 1 dose of IM Rocephin and then started him on Cephalexin and Bactrim for which he has been taking almost 10 days of treatment and has 5 more days left of medication. He was then referred to the wound center for treatment. He has been covering the wound with gauze and antibiotic ointment but leaving it open to air when he is at home. He appears to have Charcot of the right foot and a collapsed right arch. He has had vascular testing by Dr. Flores his account supervisor at the [facility] last year. His last A1C is unknown. He denies fever, chills, increased erythema or drainage and has been taking his antibiotics as instructed. Wound culture 01/09/23 was positive for anaerobic bacteria, Pseudomonas, Enterococcus and Klebsiella. He was started on Augmentin and Ciprofloxacin and completed treatment. He had vascular testing and venous insufficiency not identified. ABIs were WNL and not changed from previous. He had CTA with runoff scheduled on 01/21/23 which showed some areas of stenosis in left leg but there was blood flow to dorsalis pedis artery. He had consultation with vascular surgery on 02/02/[address] Gibson prefers to defer any surgical intervention for now as he does not think there is significant arterial disease in his left leg contributing to his difficulty healing. Subjective Subjective Calvin returns for follow up of ulcer of lateral left ankle. Ulcer is improved in depth and granulation. He tolerated treatment with Epifix and Aquacel Extra. 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 Denies fever, chills, increased drainage or pain. Objective Data Objective Data Vital Signs: Vital Signs Temp Pulse Resp BP O2 Del Method 96.8 F L 86 16 150/88 H Room Air 05/08/23 08:04 05/08/23 08:04 05/08/23 08:04 05/08/23 08:04 05/08/23 08:04 Oxygen Delivery Method Room Air Weight: 112.491 kg Body Mass Index (BMI) 33.1 Physical Exam Const alert, oriented x3 and no apparent distress General Appearance: cooperative and comfortable HEENT normocephalic and head/scalp atraumatic Resp normal respiratory effort Effort and Inspection: able to speak in complete sentences Cardio regular rate and regular rhythm Skin Wounds: wounds noted Wound Narrative: as in clinical panel Psych mental status grossly normal, thought process normal, cooperative and affect normal Debridement Note Debridement Note Wound debrided: left lateral ankle Laterality: Left Wound Grade/Stage: Soler grade 2 Type of Debridement: Excisional debridement Anesthesia Used: 4% Lidocaine Solution, 5% Lidocaine Gel and Cetacaine Depth: Down to and including healthy tissue and in the subcutaneous layer Percentage of wound debrided: 100 Instrument Used: 5mm curette Tissue Removed: Yellow slough, devitalized tissue Severity: Fat Layer Exposed Amount of bleeding with debridement: Mild Bleeding Controlled with: Compression and gauze Patient tolerated procedure: Patient tolerated procedure well Post-Debridement Measurements and Additional Note: Post-Debridement Measurements/Treatment - Nurse 1 - General Ulcer Assessment Start: 05/08/23 08:04 Freq: Status: Active Protocol: DOMINIQUE.LOWRAMIREZT Activity Type Activity Date Activity User E-sign Co-sign Detail Recorded Client Recorded Date Recorded By Document 05/08/23 08:04 [facility] Desktop 05/08/23 08:12 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 ) Arrival Mode Ambulatory Transfer Assistance None Patient Identification Verified (Name & Yes ) Patient Requires Transmission-Based No Precautions Height and Weight Body Mass Index (BMI) 33.1 BMI Classification Obese Vital Signs Temperature (97.8 F-99.1 F) 96.8 F L Temperature Source Temporal Pulse Rate (60-100) 86 Pulse Location Monitor Respiratory Rate (12-18) 16 Respiratory rate source Observation Oxygen Delivery Method Room Air Blood Pressure (90/60-120/80) 150/88 H Blood Pressure Mean (mm Hg) 108 Source Monitor Position Sitting Blood Pressure Location Left Arm History Since Last Visit- (Skip if this is Patient's initial visit) Have you changed medications since your No last visit? Any new allergies or adverse reactions No Had a fall/change in ADL's that may No increase risk of falls Signs or symptoms of abuse and/or No neglect since last visit Have you been in the hospital since your No last visit? Has dressing in place as prescribed Yes Left Footwear Regular Shoe Right Footwear Regular Shoe Pain Scale: 0-10 Numeric Is Patient Pain Free? Yes WC - Nurse 1 - General Ulcer Measurement Start: 05/08/23 08:04 Freq: Status: Active Protocol: Activity Type Activity Date Activity User E-sign Co-sign Detail Recorded Client Recorded Date Recorded By Document 05/08/23 08:04 [facility] Desktop 05/08/23 08:12 [facility] 05/08/23 08:04 Wound Center Nurse 1 3. L lateral ankle -Combined with other wound No -Current Size (cm) - Length 0.8 -Current Size (cm) - Width 0.4 -Current Size (cm) - Depth 0.3 -Total Square Cm 0.32 -Photo Taken No -Epithelialization None Present -Tunneling No -Undermining/Tunneling No -Circular Undermining No -Exudate Amt Medium -Exudate Type Serosanguineous -Wound Margin Distinct, Outline Attached -Granulation Amt Large (67-100%) -Granulation Quality [place] -Slough/Fibrin Yes -Necrosis Amt Small (1-33%) -Necrotic Tissue Type Adherent Slough -Texture (Gricelda-wound Skin Appearance) Assessed, Scarring -Moisture (Gricelda-wound Skin Appearance) Assessed, Maceration -Color (Gricelda-wound Skin Appearance) Assessed, Erythema -Temperature (Gricelda-wound Skin No Abnormality Appearance) (Pt Warm) -Tenderness on Palpation (Gricelda-wound No Skin Appearance) -Ulcer Cleansing Soap and Water -Foul Odor after Cleansing No -Anesthetic Used 5% Lidocaine Gel Left Calf (cm) 37.5 Left Ankle (cm) 24.1 WC - Nurse 2 - General Ulcer CM Notes Start: 05/08/23 08:04 Freq: Status: Active Protocol: Activity Type Activity Date Activity User E-sign Co-sign Detail Recorded Client Recorded Date Recorded By Document 05/08/23 08:19 Desktop 05/08/23 08:33 05/08/23 08:19 Wound Center Nurse 2 3. L lateral ankle -Time 08:19 -Correct Patient Yes -Correct Side, Site, Position Yes -Correct Procedure Yes -Procedure Performed Yes -Type of Procedure Debridement -Clinical Debridement Subcutaneous -Tissue Removed Subcutaneous -Post Debridement (cm) - Length 0.4 -Post Debridement (cm) - Width 0.4 -Post Debridement (cm) - Depth 0.2 -Total Square (Post) (cm) 0.16 -Area of Debridement (cm) - Length 0.4 -Area of Debridement (cm) - Width 0.4 -Total Square (Area) (cm) 0.16 -Tunneling No -Undermining/Tunneling No -Circular Undermining No -Wound/Ulcer Outcome Not Healed -Ulcer Cleansing Rinsed/ Irrigated with Saline -Foul Odor after Cleansing No -Bleeding Controlled with Pressure -Treatment Response Procedure Tolerated Well -Debridement - Subq, 1st 20sq cm No -Apply Skin Sub - 1st 25 sq cm - Legs 1 -Epifix 18mm Disc 3 Pain Scale: 0-10 Numeric Is Patient Pain Free? Yes - Nurse 3 - General Ulcer D/C NN Start: 05/08/23 08:04 Freq: Status: Active Protocol: Activity Type Activity Date Activity User E-sign Co-sign Detail Recorded Client Recorded Date Recorded By Document 05/08/23 08:40 Desktop 05/08/23 08:41 05/08/23 08:40 Wound Care Center Nurse 3 3. L lateral ankle -Primary Dressing Applied Mepilex Border -Primary Dressing Covered/Secured with Dry Gauze -Mepilex Border 1 Treatment Response Procedure Tolerated Well Pain Scale: 0-10 Numeric Is Patient Pain Free? 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: CODE(S): I25.10 - Atherosclerotic heart disease of iroquois coronary artery without angina pectoris QUALIFIERS: Coronary Disease-Associated Artery/Lesion type: iroquois artery Qualified Code(s): I25.10 - Atherosclerotic heart disease of iroquois coronary artery without angina pectoris (5) Chronic ulcer of left ankle with fat layer exposed: CODE(S): L97.322 - Non-pressure chronic ulcer of left ankle with fat layer exposed (6) Diabetic ulcer of left ankle associated with type 2 diabetes mellitus, with fat layer exposed: CODE(S): E11.622 - Type 2 diabetes mellitus with other skin ulcer; L97.322 - Non-pressure chronic ulcer of left ankle with fat layer exposed (7) Diabetes: CODE(S): E11.9 - Type 2 diabetes mellitus without complications QUALIFIERS: Diabetes mellitus type: type 2 Diabetes mellitus rodent exterminator insulin use: unspecified rodent exterminator insulin use status Diabetes mellitus complication status: with skin complications Diabetes mellitus complication detail: with other skin ulcer Qualified Code(s): E11.622 - Type 2 diabetes mellitus with other skin ulcer; L98.499 - Non-pressure chronic ulcer of skin of other sites with unspecified severity PLAN: Plan Debridement performed today in clinic as annotated above. At home wound-care instructions: Epifix #9 applied today per tenant coordinator guidelines, rehydrated with sterile saline, covered with wound veil and secured with steri-strips. Gauze as a secondary dressing and cover with foam silicone bordered dressing and change foam dressing every other day. Keep dressing clean and dry. Will have him use tubigrip compression to left leg to help with edema. Off-loading: The patient was instructed to avoid pressure and friction on the affected areas. Reposition every 2 hours at minimum. Avoid prolonged standing and/or dangling of legs. When seated, feet should be elevated at chest level. Fr equent ambulation is encouraged. Diet: Patient encouraged to increase protein intake while taking caution to avoid high carbohydrate and/or sugar intake. Labs/cultures/imaging: Patient pulled up on his phone and PANCHO left ankle in May 2022 was 1.07. Culture 01/09/23 positive for Pseudomonas, Klebsiella, Enterococcus and Anaerobic bacteria. Venous studies unremarkable. PANCHO left ankle 01/14 was 1.37 CTA with run-off done at 01/21/23 and there is some stenosis in the anterior tibial artery but blood flow to dorsalis pedis is present. Follow-up: Return in 1 week for wound care follow up. Return sooner or report to the emergency room should symptoms worsen, or new symptoms arise. Note: Active [employer] speech recognition rehabilitation program manager software was used to create portions of this document. Sound-alike and misspelled words, as well as other rehabilitation program manager errors may be contained in the documentation.
[2023-05-22 08:27] VITALS: BP 149/89; PULSE 82; RESP 18; TEMP 36.3; BMI 33.1
--- NOTE | 2023-05-22 15:27 | PCM.WC.PN ---
History of Present Illness Date of Service: 05/22/23 Chief Complaint: non healing ulcer of left lateral malleolus/ankle History of Wound: Be is a 67-year-old white male with type 2 diabetes and a history of poor healing wounds that presents to the wound center today for evaluation and treatment of a nonhealing ulcer of his left lateral ankle/malleolus that started approximately 4 weeks ago. He thinks that his boot was rubbing the area and then noticed that there was drainage and was treating with a bandaid and antibiotic ointment with no improvement and increased drainage and erythema and swelling and then was seen by his PCP who started him on doxycyline and there was still no improvement so he gave him 1 dose of IM Rocephin and then started him on Cephalexin and Bactrim for which he has been taking almost 10 days of treatment and has 5 more days left of medication. He was then referred to the wound center for treatment. He has been covering the wound with gauze and antibiotic ointment but leaving it open to air when he is at home. He appears to have Charcot of the right foot and a collapsed right arch. He has had vascular testing by Dr. Flores his business attorney at the [facility] last year. His last A1C is unknown. He denies fever, chills, increased erythema or drainage and has been taking his antibiotics as instructed. Wound culture 01/09/23 was positive for anaerobic bacteria, Pseudomonas, Enterococcus and Klebsiella. He was started on Augmentin and Ciprofloxacin and completed treatment. He had vascular testing and venous insufficiency not identified. ABIs were WNL and not changed from previous. He had CTA with runoff scheduled on 01/21/23 which showed some areas of stenosis in left leg but there was blood flow to dorsalis pedis artery. He had consultation with vascular surgery on 02/02/[address] Gibson prefers to defer any surgical intervention for now as he does not think there is significant arterial disease in his left leg contributing to his difficulty healing. Subjective Subjective Calvin returns for follow up of ulcer of lateral left ankle. Ulcer is improved in depth and granulation. He tolerated treatment with Epifix and Aquacel Extra. He tripped and broke his right great toe earlier this week and has developed multiple blisters with serous fluid over the last 2 days to his right great toe. He is not on any antibiotics. They have been applying telfa bandage and antibiotic ointment per PCP office. Calvin's toolmaker stopped his hydroxyurea due to the potential of this being a factor to his delayed wound healing. Denies fever, chills, increased drainage or pain. Objective Data Objective Data Vital Signs: Vital Signs Temp Pulse Resp BP O2 Del Method 97.4 F L 82 18 149/89 H Room Air 05/22/23 08:27 05/22/23 08:27 05/22/23 08:27 05/22/23 08:27 05/08/23 08:04 Oxygen Delivery Method Room Air Weight: 112.491 kg Body Mass Index (BMI) 33.1 Physical Exam Const alert, oriented x3 and no apparent distress General Appearance: cooperative and comfortable HEENT normocephalic and head/scalp atraumatic Resp normal respiratory effort Effort and Inspection: able to speak in complete sentences Cardio regular rate and regular rhythm Skin Wounds: wounds noted Wound Narrative: as in clinical panel Psych mental status grossly normal, thought process normal, cooperative and affect normal Debridement Note Debridement Note Wound debrided: left lateral ankle Laterality: Left Wound Grade/Stage: Soler grade 2 Type of Debridement: Excisional debridement Anesthesia Used: 4% Lidocaine Solution, 5% Lidocaine Gel and Cetacaine Depth: Down to and including healthy tissue and in the subcutaneous layer Percentage of wound debrided: 100 Instrument Used: 5mm curette Tissue Removed: Yellow slough, devitalized tissue Severity: Fat Layer Exposed Amount of bleeding with debridement: Mild Bleeding Controlled with: Compression and gauze Patient tolerated procedure: Patient tolerated procedure well Post-Debridement Measurements and Additional Note: Post-Debridement Measurements/Treatment - Nurse 1 - General Ulcer Assessment Start: 05/08/23 08:04 Freq: Status: Active Protocol: DOMINIQUE.MILI Activity Type Activity Date Activity User E-sign Co-sign Detail Recorded Client Recorded Date Recorded By Document 05/08/23 08:04 BM Desktop 05/08/23 08:12 BM Document 05/22/23 08:27 RB Desktop 05/22/23 08:34 RB 05/08/23 05/22/23 08:04 08:27 - Today's Visit Information Type of service Follow-up Visit Follow-up Visit (Physician/ASSISTANT MAINTENANCE MANAGER (Physician/ASSISTANT MAINTENANCE MANAGER ) ) Arrival Mode Ambulatory Ambulatory Transfer Assistance None None Patient Identification Verified (Name & Yes Yes ) Patient Requires Transmission-Based No No Precautions Height and Weight Body Mass Index (BMI) 33.1 33.1 BMI Classification Obese Obese Vital Signs Temperature (97.8 F-99.1 F) 96.8 F L 97.4 F L Temperature Source Temporal Temporal Pulse Rate (60-100) 86 82 Pulse Location Monitor Monitor Respiratory Rate (12-18) 16 18 Respiratory rate source Observation Observation Oxygen Delivery Method Room Air Blood Pressure (90/60-120/80) 150/88 H 149/89 H Blood Pressure Mean (mm Hg) 108 109 Source Monitor Position Sitting Semi-Fowlers Blood Pressure Location Left Arm Left Arm History Since Last Visit- (Skip if this is Patient's initial visit) Have you changed medications since your No No last visit? Any new allergies or adverse reactions No No Had a fall/change in ADL's that may No No increase risk of falls Signs or symptoms of abuse and/or No No neglect since last visit Have you been in the hospital since your No No last visit? Has dressing in place as prescribed Yes Yes Has compression in place as prescribed No Has offloadiing in place as prescribed No Experienced any changes in pain level or No management Left Footwear Regular Shoe Right Footwear Regular Shoe Pain Scale: 0-10 Numeric Is Patient Pain Free? Yes Yes WC - Nurse 1 - General Ulcer Measurement Start: 05/08/23 08:04 Freq: Status: Active Protocol: Activity Type Activity Date Activity User E-sign Co-sign Detail Recorded Client Recorded Date Recorded By Document 05/08/23 08:[address] [facility] Desktop 05/08/23 08:[address] [facility] Document 05/22/23 08:27 Desktop 05/22/23 08:34 RB 05/08/23 05/22/23 08:04 08:27 Wound Center Nurse 1 6. R great toe medial -Combined with other wound No -Current Size (cm) - Length 1.5 -Current Size (cm) - Width 1.5 -Current Size (cm) - Depth 0.1 -Total Square Cm 2.25 -Photo Taken Yes -Tunneling No -Undermining/Tunneling No -Circular Undermining No -Exudate Amt Medium -Exudate Type Serosanguineous -Wound Margin Distinct, Outline Attached -Granulation Amt Medium (34-66%) -Granulation Quality Embden -Slough/Fibrin Yes -Necrosis Amt Medium (34-66%) -Necrotic Tissue Type Adherent Slough -Structure Exposed N/A -Texture (Gricelda-wound Skin Appearance) Assessed -Moisture (Gricelda-wound Skin Appearance) Assessed -Color (Gricelda-wound Skin Appearance) No Abnormality, Erythema -Temperature (Gricelda-wound Skin Hot Appearance) -Tenderness on Palpation (Gricelda-wound No Skin Appearance) -Ulcer Cleansing Wound Cleanser -Foul Odor after Cleansing No -Anesthetic Used 5% Lidocaine Gel 5. R great toe anterior -Combined with other wound No -Current Size (cm) - Length 1.5 -Current Size (cm) - Width 2 -Current Size (cm) - Depth 0.1 -Total Square Cm 3.0 -Photo Taken Yes -Tunneling No -Undermining/Tunneling No -Circular Undermining No -Exudate Amt Medium -Exudate Type Serosanguineous -Wound Margin Distinct, Outline Attached -Granulation Amt Medium (34-66%) -Granulation Quality Embden -Slough/Fibrin Yes -Necrosis Amt Medium (34-66%) -Necrotic Tissue Type Adherent Slough -Structure Exposed N/A -Texture (Gricelda-wound Skin Appearance) Assessed -Moisture (Gricelda-wound Skin Appearance) Assessed -Color (Gricelda-wound Skin Appearance) Assessed, Erythema -Temperature (Gricelda-wound Skin Hot Appearance) -Tenderness on Palpation (Gricelda-wound No Skin Appearance) -Ulcer Cleansing Wound Cleanser -Foul Odor after Cleansing No -Anesthetic Used 5% Lidocaine Gel 3. L lateral ankle -Combined with other wound No No -Current Size (cm) - Length 0.8 0.1 -Current Size (cm) - Width 0.4 0.1 -Current Size (cm) - Depth 0.3 0.1 -Total Square Cm 0.32 0.01 -Photo Taken No -Epithelialization None Present -Tunneling No No -Undermining/Tunneling No No -Circular Undermining No No -Exudate Amt Medium Small -Exudate Type Serosanguineous Serosanguineous -Wound Margin Distinct, Distinct, Outline Outline Attached Attached -Granulation Amt Large (67-100%) Medium (34-66%) -Granulation Quality Embden Embden -Slough/Fibrin Yes Yes -Necrosis Amt Small (1-33%) Medium (34-66%) -Necrotic Tissue Type Adherent Slough Adherent Slough -Structure Exposed N/A -Texture (Gricelda-wound Skin Appearance) Assessed, Assessed Scarring -Moisture (Gricelda-wound Skin Appearance) Assessed, Assessed Maceration -Color (Gricelda-wound Skin Appearance) Assessed, Assessed Erythema -Temperature (Gricelda-wound Skin No Abnormality No Abnormality Appearance) (Pt Warm) (Pt Warm) -Tenderness on Palpation (Gricelda-wound No No Skin Appearance) -Ulcer Cleansing Soap and Water Wound Cleanser -Foul Odor after Cleansing No No -Anesthetic Used 5% Lidocaine 5% Lidocaine Gel Gel Left Calf (cm) 37.5 Left Ankle (cm) 24.1 WC - Nurse 2 - General Ulcer CM Notes Start: 05/08/23 08:04 Freq: Status: Active Protocol: Activity Type Activity Date Activity User E-sign Co-sign Detail Recorded Client Recorded Date Recorded By Document 05/08/23 08:19 GM Desktop 05/08/23 08:33 GM Document 05/22/23 08:43 GM Desktop 05/22/23 09:16 GM 05/08/23 05/22/23 08:19 08:43 Wound Center Nurse 2 6. R great toe medial -Time 08:43 -Correct Patient Yes -Correct Side, Site, Position Yes -Correct Procedure Yes -Procedure Performed Yes -Type of Procedure Debridement -Clinical Debridement Subcutaneous -Tissue Removed Subcutaneous -Post Debridement (cm) - Length 3.8 -Post Debridement (cm) - Width 2.5 -Post Debridement (cm) - Depth 0.1 -Total Square (Post) (cm) 9.50 -Area of Debridement (cm) - Length 3.8 -Area of Debridement (cm) - Width 2.5 -Total Square (Area) (cm) 9.50 -Tunneling No -Undermining/Tunneling No -Circular Undermining No -Wound/Ulcer Outcome Not Healed -Ulcer Cleansing Rinsed/ Irrigated with Saline -Foul Odor after Cleansing No -Bioengineered Tissue No -Bleeding Controlled with Pressure -Treatment Response Procedure Tolerated Well -Debridement - Subq, 1st 20sq cm No 5. R great toe anterior -Time 08:44 -Correct Patient Yes -Correct Side, Site, Position Yes -Correct Procedure Yes -Procedure Performed Yes -Type of Procedure Debridement -Clinical Debridement Subcutaneous -Tissue Removed Subcutaneous -Post Debridement (cm) - Length 1.2 -Post Debridement (cm) - Width 3.7 -Post Debridement (cm) - Depth 0.1 -Total Square (Post) (cm) 4.44 -Area of Debridement (cm) - Length 1.2 -Area of Debridement (cm) - Width 3.7 -Total Square (Area) (cm) 4.44 -Tunneling No -Undermining/Tunneling No -Circular Undermining No -Wound/Ulcer Outcome Not Healed -Ulcer Cleansing Rinsed/ Irrigated with Saline -Foul Odor after Cleansing No -Bioengineered Tissue No -Bleeding Controlled with Pressure -Treatment Response Procedure Tolerated Well -Debridement - Subq, 1st 20sq cm No 3. L lateral ankle -Time 08:19 08:44 -Correct Patient Yes Yes -Correct Side, Site, Position Yes Yes -Correct Procedure Yes Yes -Procedure Performed Yes Yes -Type of Procedure Debridement Debridement -Clinical Debridement Subcutaneous Subcutaneous -Tissue Removed Subcutaneous Subcutaneous -Post Debridement (cm) - Length 0.4 0.3 -Post Debridement (cm) - Width 0.4 0.3 -Post Debridement (cm) - Depth 0.2 0.2 -Total Square (Post) (cm) 0.16 0.09 -Area of Debridement (cm) - Length 0.4 0.3 -Area of Debridement (cm) - Width 0.4 0.3 -Total Square (Area) (cm) 0.16 0.09 -Tunneling No No -Undermining/Tunneling No No -Circular Undermining No No -Wound/Ulcer Outcome Not Healed Not Healed -Ulcer Cleansing Rinsed/ Rinsed/ Irrigated with Irrigated with Saline Saline -Foul Odor after Cleansing No No -Bioengineered Tissue No -Bleeding Controlled with Pressure Pressure -Treatment Response Procedure Procedure Tolerated Well Tolerated Well -Debridement - Subq, 1st 20sq cm No Yes -Apply Skin Sub - 1st 25 sq cm - Legs 1 -Epifix 18mm Disc 3 Pain Scale: 0-10 Numeric Is Patient Pain Free? Yes Yes WC - Nurse 3 - General Ulcer D/C NN Start: 05/08/23 08:04 Freq: Status: Active Protocol: Activity Type Activity Date Activity User E-sign Co-sign Detail Recorded Client Recorded Date Recorded By Document 05/08/23 08:40 RB Desktop 05/08/23 08:41 RB Document 05/22/23 09:35 DL Desktop 05/22/23 09:37 DL 05/08/23 05/22/23 08:40 09:35 Wound Care Center Nurse 3 6. R great toe medial -Ulcer Cleansing Rinsed/ Irrigated with Saline -Foul Odor after Cleansing No -Primary Dressing Applied Aquacel Extra -Primary Dressing Covered/Secured with Dry Gauze & Roll Gauze, Secured with Tape -Aquacel Extra 1 5. R great toe anterior -Ulcer Cleansing Rinsed/ Irrigated with Saline -Foul Odor after Cleansing No -Other Dressing aqucel ex -Primary Dressing Covered/Secured with Dry Gauze & Roll Gauze, Secured with Tape 3. L lateral ankle -Ulcer Cleansing Rinsed/ Irrigated with Saline -Foul Odor after Cleansing No -Primary Dressing Applied Mepilex Border Mepilex Border, Promogran -Primary Dressing Covered/Secured with Dry Gauze -Mepilex Border 1 1 -Promogran 1 Treatment Response Procedure Procedure Tolerated Well Tolerated Well Pain Scale: 0-10 Numeric Is Patient Pain Free? Yes Yes WC - Visit Discharge Discharge Condition Stable Stable Ambulatory Status Ambulatory Ambulatory Transportation Private Auto Private Auto Medication Reconcilliation completed & No provided to patient/care provider Clinical Summary of Care Provided Yes Additional Wound Wound debrided: right great toe anterior Laterality: Right Type of Debridement: Excisional debridement Anesthesia Used: 4% Lidocaine Solution and 5% Lidocaine Gel Depth: Down to and including healthy tissue and in the subcutaneous layer Percentage of wound debrided: 100 Instrument Used: #15 blade and Forceps Tissue Removed: Yellow slough, devitalized tissue Severity: Fat Layer Exposed Amount of bleeding with debridement: Mild Bleeding Controlled with: Compression and gauze Patient tolerated procedure: Patient tolerated procedure well Additional Wound Wound debrided: right great toe medial Laterality: Right Type of Debridement: Excisional debridement Anesthesia Used: 5% Lidocaine Gel Depth: Down to and including healthy tissue and in the subcutaneous layer Percentage of wound debrided: 100 Instrument Used: #15 blade and Forceps Tissue Removed: Yellow slough, devitalized tissue Severity: Fat Layer Exposed Amount of bleeding with debridement: Mild Bleeding Controlled with: Compression and gauze Patient tolerated procedure: Patient tolerated procedure well Assessment/Plan Assessment/Plan (1) Essential hypertension: CODE(S): I10 - Essential (primary) hypertension (2) Uncontrolled type 2 diabetes mellitus with hyperglycemia: CODE(S): E11.65 - Type 2 diabetes mellitus with hyperglycemia (3) Nonhealing nonsurgical wound: CODE(S): T14.8XXA - Other injury of unspecified body region, initial encounter (4) Atherosclerosis of coronary artery of havasupai heart without angina pectoris: CODE(S): I25.10 - Atherosclerotic heart disease of havasupai coronary artery without angina pectoris QUALIFIERS: Coronary Disease-Associated Artery/Lesion type: havasupai artery Qualified Code(s): I25.10 - Atherosclerotic heart disease of havasupai coronary artery without angina pectoris (5) Chronic ulcer of left ankle with fat layer exposed: CODE(S): L97.322 - Non-pressure chronic ulcer of left ankle with fat layer exposed (6) Diabetic ulcer of left ankle associated with type 2 diabetes mellitus, with fat layer exposed: CODE(S): E11.622 - Type 2 diabetes mellitus with other skin ulcer; L97.322 - Non-pressure chronic ulcer of left ankle with fat layer exposed (7) Diabetes: CODE(S): E11.9 - Type 2 diabetes mellitus without complications QUALIFIERS: Diabetes mellitus complication detail: with other skin ulcer Diabetes mellitus complication status: with skin complications Diabetes mellitus intermediate manager insulin use: unspecified skilled nursing insulin use status Diabetes mellitus type: type 2 Qualified Code(s): E11.622 - Type 2 diabetes mellitus with other skin ulcer; L98.499 - Non-pressure chronic ulcer of skin of other sites with unspecified severity PLAN: Plan Debridement performed today in clinic as annotated above. At home wound-care instructions: Epifix held today due to holiday and scheduling conflicts. Will have him use Promogran and foam dressing and change daily. Keep dressing clean and dry. Will have him use tubigrip compression to left leg to help with edema. Right great toe will have him use Aquacel extra and gauze changed daily. Wound culture done on fluid from medial blister. Off-loading: The patient was instructed to avoid pressure and friction on the affected areas. Reposition every 2 hours at minimum. Avoid prolonged standing and/or dangling of legs. When seated, feet should be elevated at chest level. Frequent ambulation is encouraged. Diet: Patient encouraged to increase protein intake while taking caution to avoid high carbohydrate and/or sugar intake. Labs/cultures/imaging: Patient pulled up on his phone and PANCHO left ankle in May 2022 was 1.07. Culture 01/09/23 positive for Pseudomonas, Klebsiella, Enterococcus and Anaerobic bacteria. Venous studies unremarkable. PANCHO left ankle 01/14 was 1.37 CTA with run-off done at 01/21/23 and there is some stenosis in the anterior tibial artery but blood flow to dorsalis pedis is present. Wound culture of right great toe done. Will treat based on results. Follow-up: Return in 1 week for wound care follow up. Return sooner or report to the emergency room should symptoms worsen, or new symptoms arise. Note: [employer] speech recognition research lab assistant software was used to create portions of this document. Sound-alike and misspelled words, as well as other research lab assistant errors may be contained in the documentation.
--- NOTE | 2023-05-27 08:38 | WC ---
Called patient but got voice mail. Let him know that Dr. Briscoe ordered an antibiotic which was called to [facility] in [place], [place].
--- NOTE | 2023-05-27 11:53 | WC ---
patient called to ask if he should continue the amoxicillin that Dr. Flores ordered. Verified per Dr. Briscoe that is it okay if he wants to continue the Amoxicillin, Sammie was called in this morning. He was called back with the okay.
== END 2023-06-04 23:59 | disposition home or self-care (01) ==
LOC: WC 08:00
PROVIDERS: PCP Family Medicine; Referring Provider Family Medicine; Visit Provider Family Medicine
DX: E11.622 Type 2 diabetes mellitus with other skin ulcer (principal); E11.621 Type 2 diabetes mellitus with foot ulcer; L98.412 Non-pressure chronic ulcer of buttock with fat layer exposed; L97.322 Non-pressure chronic ulcer of left ankle with fat layer exposed; E11.65 Type 2 diabetes mellitus with hyperglycemia; I25.10 Atherosclerotic heart disease of native coronary artery without angina pectoris; I10 Essential (primary) hypertension
CPT/HCPCS: 11042; 15271; 87070; 87075; 87077; 87186; 87205; Q4186

== ENCOUNTER 2023-06-19 09:15 | Outpatient (RCR) | payer MEDICARE, OTHER, SELFPAY ==
[2023-06-05 00:36] VITALS: BP 149/89; PULSE 82; RESP 18; TEMP 36.3; BMI 33.1
[2023-06-05 08:53] VITALS: BP 133/78; PULSE 84; RESP 18; TEMP 36.4; BMI 33.1
--- NOTE | 2023-06-05 13:06 | PN.PCM_ITS ---
History of Present Illness Date of Service: 06/05/23 Chief Complaint: non healing ulcer of left lateral malleolus/ankle History of Wound: Be is a 67-year-old white male with type 2 diabetes and a history of poor healing wounds that presents to the wound center today for evaluation and treatment of a nonhealing ulcer of his left lateral ankle/malleolus that started approximately 4 weeks ago. He thinks that his boot was rubbing the area and then noticed that there was drainage and was treating with a bandaid and antibiotic ointment with no improvement and increased drainage and erythema and swelling and then was seen by his PCP who started him on doxycyline and there was still no improvement so he gave him 1 dose of IM Rocephin and then started him on Cephalexin and Bactrim for which he has been taking almost 10 days of treatment and has 5 more days left of medication. He was then referred to the wound center for treatment. He has been covering the wound with gauze and antibiotic ointment but leaving it open to air when he is at home. He appears to have Charcot of the right foot and a collapsed right arch. He has had vascular testing by Dr. Flores his cane burner at the [facility] last year. His last A1C is unknown. He denies fever, chills, increased erythema or drainage and has been taking his antibiotics as instructed. Wound culture 01/09/23 was positive for anaerobic bacteria, Pseudomonas, Enterococcus and Klebsiella. He was started on Augmentin and Ciprofloxacin and completed treatment. He had vascular testing and venous insufficiency not identified. ABIs were WNL and not changed from previous. He had CTA with runoff scheduled on 01/21/23 which showed some areas of stenosis in left leg but there was blood flow to dorsalis pedis artery. He had consultation with vascular surgery on 02/02/[address] Gibson prefers to defer any surgical intervention for now as he does not think there is significant arterial disease in his left leg contributing to his difficulty healing. Subjective Subjective Calvin returns for follow up of ulcer of lateral left ankle. Ulcer is improved in depth and granulation. He tolerated treatment with promogran. New ulcers of right toe are healed. Calvin's operations research analyst stopped his hydroxyurea due to the potential of this being a factor to his delayed wound healing. Denies fever, chills, increased drainage or pain. Objective Data Objective Data Vital Signs: Vital Signs Temp Pulse Resp BP 97.6 F L 84 18 133/78 H 06/05/23 08:53 06/05/23 08:53 06/05/23 08:53 06/05/23 08:53 Weight: 112.491 kg Body Mass Index (BMI) 33.1 Physical Exam Const alert, oriented x3 and no apparent distress General Appearance: cooperative and comfortable HEENT normocephalic and head/scalp atraumatic Resp normal respiratory effort Effort and Inspection: able to speak in complete sentences Cardio regular rate and regular rhythm Skin Wounds: wounds noted Wound Narrative: as in clinical panel Psych mental status grossly normal, thought process normal, cooperative and affect normal Debridement Note Debridement Note Wound debrided: left lateral ankle Laterality: Left Wound Grade/Stage: Soler grade 2 Type of Debridement: Excisional debridement Anesthesia Used: 4% Lidocaine Solution, 5% Lidocaine Gel and Cetacaine Depth: Down to and including healthy tissue and in the subcutaneous layer Percentage of wound debrided: 100 Instrument Used: 3mm curette Tissue Removed: Yellow slough, devitalized tissue Severity: Fat Layer Exposed Amount of bleeding with debridement: Mild Bleeding Controlled with: Compression and gauze Patient tolerated procedure: Patient tolerated procedure well Post-Debridement Measurements and Additional Note: Post-Debridement Measurements/Treatment DOMINIQUE - Nurse 1 - General Ulcer Assessment Start: 06/05/23 08:53 Freq: Status: Active Protocol: AIXA Activity Type Activity Date Activity User E-sign Co-sign Detail Recorded Client Recorded Date Recorded By Document 06/05/23 08:53 PL Tablet 06/05/23 09:03 PL 06/05/23 08:53 - Today's Visit Information Type of service Follow-up Visit (Physician/TREATING ENGINEER HELPER ) Arrival Mode Ambulatory Transfer Assistance None Patient Identification Verified (Name & Yes ) Patient Requires Transmission-Based No Precautions Safety Precautions NA Height and Weight Body Mass Index (BMI) 33.1 BMI Classification Obese Vital Signs Temperature (97.8 F-99.1 F) 97.6 F L Temperature Source Temporal Pulse Rate (60-100) 84 Respiratory Rate (12-18) 18 Blood Pressure (90/60-120/80) 133/78 H Blood Pressure Mean (mm Hg) 96 Pain Scale: 0-10 Numeric Is Patient Pain Free? Yes - Nurse 2 - General Ulcer CM Notes Start: 06/05/23 08:53 Freq: Status: Active Protocol: Activity Type Activity Date Activity User E-sign Co-sign Detail Recorded Client Recorded Date Recorded By Document 06/05/23 09:37 Desktop 06/05/23 09:52 06/05/23 09:37 Wound Center Nurse 2 6. R great toe medial -Time 09:38 -Correct Patient Yes -Correct Side, Site, Position Yes -Correct Procedure Yes -Procedure Performed Yes -Type of Procedure Debridement -Clinical Debridement Subcutaneous -Tissue Removed Subcutaneous -Post Debridement (cm) - Length 0.1 -Post Debridement (cm) - Width 0.1 -Post Debridement (cm) - Depth 0.1 -Total Square (Post) (cm) 0.01 -Area of Debridement (cm) - Length 0.1 -Area of Debridement (cm) - Width 0.1 -Total Square (Area) (cm) 0.01 -Tunneling No -Undermining/Tunneling No -Circular Undermining No -Wound/Ulcer Outcome Healed- Epithelialized -Ulcer Cleansing Rinsed/ Irrigated with Saline -Foul Odor after Cleansing No -Bioengineered Tissue No -Bleeding Controlled with NA -Treatment Response Procedure Tolerated Well -Debridement - Subq, 1st 20sq cm No 5. R great toe anterior -Time 09:38 -Correct Patient Yes -Correct Side, Site, Position Yes -Correct Procedure Yes -Procedure Performed Yes -Type of Procedure Debridement -Clinical Debridement Subcutaneous -Tissue Removed Subcutaneous -Post Debridement (cm) - Length 0.1 -Post Debridement (cm) - Width 0.1 -Post Debridement (cm) - Depth 0.1 -Total Square (Post) (cm) 0.01 -Area of Debridement (cm) - Length 0.1 -Area of Debridement (cm) - Width 0.1 -Total Square (Area) (cm) 0.01 -Tunneling No -Undermining/Tunneling No -Circular Undermining No -Wound/Ulcer Outcome Healed- Epithelialized -Ulcer Cleansing Rinsed/ Irrigated with Saline -Foul Odor after Cleansing No -Bioengineered Tissue No -Bleeding Controlled with NA -Treatment Response Procedure Tolerated Well -Debridement - Subq, 1st 20sq cm No 3. L lateral ankle -Time 09:39 -Correct Patient Yes -Correct Side, Site, Position Yes -Correct Procedure Yes -Procedure Performed Yes -Type of Procedure Debridement -Clinical Debridement Subcutaneous -Tissue Removed Subcutaneous -Post Debridement (cm) - Length 0.3 -Post Debridement (cm) - Width 0.2 -Post Debridement (cm) - Depth 0.1 -Total Square (Post) (cm) 0.06 -Area of Debridement (cm) - Length 0.3 -Area of Debridement (cm) - Width 0.2 -Total Square (Area) (cm) 0.06 -Tunneling No -Undermining/Tunneling No -Circular Undermining No -Wound/Ulcer Outcome Not Healed -Ulcer Cleansing Wound Cleanser -Foul Odor after Cleansing No -Bioengineered Tissue No -Bleeding Controlled with Pressure -Treatment Response Procedure Tolerated Well -Debridement - Subq, 1st 20sq cm Yes Pain Scale: 0-10 Numeric Is Patient Pain Free? Yes - Nurse 3 - General Ulcer D/C NN Start: 06/05/23 08:53 Freq: Status: Active Protocol: Activity Type Activity Date Activity User E-sign Co-sign Detail Recorded Client Recorded Date Recorded By Document 06/05/23 10:[address] [facility] Desktop 06/05/23 10:[address] [facility] 06/05/23 10:01 Wound Care Center Nurse 3 6. R great toe medial -Other Covering LOTA 5. R great toe anterior -Other Dressing LOTA 3. L lateral ankle -Ulcer Cleansing Rinsed/ Irrigated with Saline -Foul Odor after Cleansing No -Primary Dressing Applied C Hydrogel ($), Mepilex Border -Mepilex Border 1 Treatment Response Procedure Tolerated Well Pain Scale: 0-10 Numeric Is Patient Pain Free? Yes - Visit Discharge Discharge Condition Stable Ambulatory Status Ambulatory Transportation Private Auto Accompanied by Additional Wound Wound debrided: right great toe anterior Laterality: Right Type of Debridement: Selective debridement Anesthesia Used: 5% Lidocaine Gel Depth: Down to and including healthy tissue Percentage of wound debrided: 100 Instrument Used: 3mm curette Tissue Removed: Yellow slough, devitalized tissue Severity: Limited To Skin Breakdown Amount of bleeding with debridement: None Patient tolerated procedure: Patient tolerated procedure well Additional Wound Wound debrided: right great toe medial Laterality: Right Type of Debridement: Selective debridement Anesthesia Used: 5% Lidocaine Gel Depth: Down to and including healthy tissue Percentage of wound debrided: 100 Instrument Used: 3mm curette Tissue Removed: Yellow slough, devitalized tissue Severity: Limited To Skin Breakdown Amount of bleeding with debridement: None Bleeding Controlled with: Compression and gauze Patient tolerated procedure: Patient tolerated procedure well Assessment/Plan Assessment/Plan (1) Essential hypertension: CODE(S): I10 - Essential (primary) hypertension (2) Uncontrolled type 2 diabetes mellitus with hyperglycemia: CODE(S): E11.65 - Type 2 diabetes mellitus with hyperglycemia (3) Nonhealing nonsurgical wound: CODE(S): T14.8XXA - Other injury of unspecified body region, initial encounter (4) Atherosclerosis of coronary artery of [place] heart without angina pectoris: CODE(S): I25.10 - Atherosclerotic heart disease of [place] coronary artery without angina pectoris QUALIFIERS: Coronary Disease-Associated Artery/Lesion type: [place] artery Qualified Code(s): I25.10 - Atherosclerotic heart disease of [place] coronary artery without angina pectoris (5) Chronic ulcer of left ankle with fat layer exposed: CODE(S): L97.322 - Non-pressure chronic ulcer of left ankle with fat layer exposed (6) Diabetic ulcer of left ankle associated with type 2 diabetes mellitus, with fat layer exposed: CODE(S): E11.622 - Type 2 diabetes mellitus with other skin ulcer; L97.322 - Non-pressure chronic ulcer of left ankle with fat layer exposed (7) Diabetes: CODE(S): E11.9 - Type 2 diabetes mellitus without complications QUALIFIERS: Diabetes mellitus type: type 2 Diabetes mellitus senior living insulin use: unspecified senior living insulin use status Diabetes mellitus complication status: with skin complications Diabetes mellitus complication detail: with other skin ulcer Qualified Code(s): E11.622 - Type 2 diabetes mellitus with other skin ulcer; L98.499 - Non-pressure chronic ulcer of skin of other sites with unspecified severity (8) Diabetic ulcer of right great toe: CODE(S): E11.621 - Type 2 diabetes mellitus with foot ulcer; L97.519 - Non-pressure chronic ulcer of other part of right foot with unspecified severity PLAN: Plan Debridement performed today in clinic as annotated above. At home wound-care instructions: Ulcers are improved. Ulcers right great toe are healed. Will have him use hydrogel and foam dressing to left lateral ankle change daily. Keep dressing clean and dry. Will have him use tubigrip compression to left leg to help with edema. Off-loading: The patient was instructed to avoid pressure and friction on the affected areas. Reposition every 2 hours at minimum. Avoid prolonged standing and/or dangling of legs. When seated, feet should be elevated at chest level. Frequent ambulation is encouraged. Diet: Patient encouraged to increase protein intake while taking caution to avoid high carbohydrate and/or sugar intake. Labs/cultures/imaging: Patient pulled up on his phone and PANCHO left ankle in May 2022 was 1.07. Culture 01/09/23 positive for Pseudomonas, Klebsiella, Enterococcus and Anaerobic bacteria. Venous studies unremarkable. PANCHO left ankle 01/14 was 1.37 CTA with run-off done at 01/21/23 and there is some stenosis in the anterior tibial artery but blood flow to dorsalis pedis is present. Follow-up: Return in 1 week for wound care follow up. Return sooner or report to the emergency room should symptoms worsen, or new symptoms arise. Note: [employer] speech recognition tractor trailer driver software was used to create po rtions of this document. Sound-alike and misspelled words, as well as other tractor trailer driver errors may be contained in the documentation.
[2023-06-19 09:19] VITALS: BP 153/81; PULSE 85; RESP 16; TEMP 36.3; BMI 33.1
--- NOTE | 2023-06-19 13:41 | PN.PCM_ITS ---
History of Present Illness Date of Service: 06/19/23 Chief Complaint: non healing ulcer of left lateral malleolus/ankle History of Wound: Be is a 67-year-old white male with type 2 diabetes and a history of poor healing wounds that presents to the wound center today for evaluation and treatment of a nonhealing ulcer of his left lateral ankle/malleolus that started approximately 4 weeks ago. He thinks that his boot was rubbing the area and then noticed that there was drainage and was treating with a bandaid and antibiotic ointment with no improvement and increased drainage and erythema and swelling and then was seen by his PCP who started him on doxycyline and there was still no improvement so he gave him 1 dose of IM Rocephin and then started him on Cephalexin and Bactrim for which he has been taking almost 10 days of treatment and has 5 more days left of medication. He was then referred to the wound center for treatment. He has been covering the wound with gauze and antibiotic ointment but leaving it open to air when he is at home. He appears to have Charcot of the right foot and a collapsed right arch. He has had vascular testing by Dr. Flores his traffic investigator at the [facility] last year. His last A1C is unknown. He denies fever, chills, increased erythema or drainage and has been taking his antibiotics as instructed. Wound culture 01/09/23 was positive for anaerobic bacteria, Pseudomonas, Enterococcus and Klebsiella. He was started on Augmentin and Ciprofloxacin and completed treatment. He had vascular testing and venous insufficiency not identified. ABIs were WNL and not changed from previous. He had CTA with runoff scheduled on 01/21/23 which showed some areas of stenosis in left leg but there was blood flow to dorsalis pedis artery. He had consultation with vascular surgery on 02/02/[address] Gibson prefers to defer any surgical intervention for now as he does not think there is significant arterial disease in his left leg contributing to his difficulty healing. Subjective Subjective Calvin returns for follow up of ulcer of lateral left ankle. Ulcer is healed. He tolerated treatment with promogran. Denies fever, chills, increased drainage or pain. Objective Data Objective Data Vital Signs: Vital Signs Temp Pulse Resp BP O2 Del Method 97.4 F L 85 16 153/81 H Room Air 06/19/23 09:19 06/19/23 09:19 06/19/23 09:19 06/19/23 09:19 06/19/23 09:19 Oxygen Delivery Method Room Air Weight: 112.491 kg Body Mass Index (BMI) 33.1 Physical Exam Const alert, oriented x3 and no apparent distress General Appearance: cooperative and comfortable HEENT normocephalic and head/scalp atraumatic Resp normal respiratory effort Effort and Inspection: able to speak in complete sentences Cardio regular rate and regular rhythm Skin Wounds: wounds noted Wound Narrative: as in clinical panel Psych mental status grossly normal, thought process normal, cooperative and affect normal Debridement Note Debridement Note Wound debrided: left lateral ankle Laterality: Left Wound Grade/Stage: Soler grade 2 No debridement was completed: No debridement was completed today Post-Debridement Measurements and Additional Note: Post-Debridement Measurements/Treatment WC - Nurse 1 - General Ulcer Assessment Start: 06/05/23 08:53 Freq: Status: Active Protocol: DOMINIQUE.LOWEXKatty Activity Type Activity Date Activity User E-sign Co-sign Detail Recorded Client Recorded Date Recorded By Document 06/05/23 08:53 PL Tablet 06/05/23 09:03 PL Document 06/19/23 09:19 BM Desktop 06/19/23 09:22 BMF 06/05/23 06/19/23 08:53 09:19 WC - Today's Visit Information Type of service Follow-up Visit Follow-up Visit (Physician/LAB SUPPORT TECH (Physician/LAB SUPPORT TECH ) ) Arrival Mode Ambulatory Ambulatory Transfer Assistance None None Patient Identification Verified (Name & Yes Yes ) Patient Requires Transmission-Based No No Precautions Safety Precautions NA Height and Weight Body Mass Index (BMI) 33.1 33.1 BMI Classification Obese Obese Vital Signs Temperature (97.8 F-99.1 F) 97.6 F L 97.4 F L Temperature Source Temporal Temporal Pulse Rate (60-100) 84 85 Pulse Location Monitor Respiratory Rate (12-18) 18 16 Respiratory rate source Observation Oxygen Delivery Method Room Air Blood Pressure (90/60-120/80) 133/78 H 153/81 H Blood Pressure Mean (mm Hg) 96 105 Source Monitor Position Sitting Blood Pressure Location Left Arm History Since Last Visit- (Skip if this is Patient's initial visit) Have you changed medications since your No last visit? Any new allergies or adverse reactions No Had a fall/change in ADL's that may No increase risk of falls Signs or symptoms of abuse and/or No neglect since last visit Have you been in the hospital since your No last visit? Has dressing in place as prescribed Yes Left Footwear Regular Shoe Right Footwear Removable Cast Walker/Walking Boot Pain Scale: 0-10 Numeric Is Patient Pain Free? Yes Yes WC - Nurse 1 - General Ulcer Measurement Start: 06/05/23 08:53 Freq: Status: Active Protocol: Activity Type Activity Date Activity User E-sign Co-sign Detail Recorded Client Recorded Date Recorded By Document 06/19/23 09:19 BMF Desktop 06/19/23 09:22 BMF Edit Result 06/19/23 09:19 BMF (1) Desktop 06/19/23 09:22 BMF (1) Left Calf (cm) => 36.2 Left Ankle (cm) => 24.3 06/19/23 09:19 Wound Center Nurse 1 3. L lateral ankle -Combined with other wound No -Current Size (cm) - Length 0.1 -Current Size (cm) - Width 0.1 -Current Size (cm) - Depth 0.1 -Total Square Cm 0.01 -Photo Taken No -Epithelialization Large 67-100% -Tunneling No -Undermining/Tunneling No -Circular Undermining No -Exudate Amt None Present -Wound Margin Distinct, Outline Attached -Texture ([place]-wound Skin Appearance) Assessed, Scarring -Moisture ([place]da-wound Skin Appearance) Assessed -Color ([place]ricelda-wound Skin Appearance) Assessed -Temperature ([place]da-wound Skin No Abnormality Appearance) (Pt Warm) -Tenderness on Palpation ([place]elda-wound No Skin Appearance) -Ulcer Cleansing Soap and Water -Foul Odor after Cleansing No -Anesthetic Used 5% Lidocaine Gel Left Calf (cm) 36.2 Left Ankle (cm) 24.3 WC - Nurse 2 - General Ulcer CM Notes Start: 06/05/23 08:53 Freq: Status: Active Protocol: Activity Type Activity Date Activity User E-sign Co-sign Detail Recorded Client Recorded Date Recorded By Document 06/05/23 09:37 GM Desktop 06/05/23 09:52 GM Document 06/19/23 09:56 MW Desktop 06/19/23 10:03 MW 06/05/23 06/19/23 09:37 09:56 Wound Center Nurse 2 6. R great toe medial -Time 09:38 -Correct Patient Yes -Correct Side, Site, Position Yes -Correct Procedure Yes -Procedure Performed Yes -Type of Procedure Debridement -Clinical Debridement Subcutaneous -Tissue Removed Subcutaneous -Post Debridement (cm) - Length 0.1 -Post Debridement (cm) - Width 0.1 -Post Debridement (cm) - Depth 0.1 -Total Square (Post) (cm) 0.01 -Area of Debridement (cm) - Length 0.1 -Area of Debridement (cm) - Width 0.1 -Total Square (Area) (cm) 0.01 -Tunneling No -Undermining/Tunneling No -Circular Undermining No -Wound/Ulcer Outcome Healed- Epithelialized -Ulcer Cleansing Rinsed/ Irrigated with Saline -Foul Odor after Cleansing No -Bioengineered Tissue No -Bleeding Controlled with NA -Treatment Response Procedure Tolerated Well -Debridement - Subq, 1st 20sq cm No 5. R great toe anterior -Time 09:38 -Correct Patient Yes -Correct Side, Site, Position Yes -Correct Procedure Yes -Procedure Performed Yes -Type of Procedure Debridement -Clinical Debridement Subcutaneous -Tissue Removed Subcutaneous -Post Debridement (cm) - Length 0.1 -Post Debridement (cm) - Width 0.1 -Post Debridement (cm) - Depth 0.1 -Total Square (Post) (cm) 0.01 -Area of Debridement (cm) - Length 0.1 -Area of Debridement (cm) - Width 0.1 -Total Square (Area) (cm) 0.01 -Tunneling No -Undermining/Tunneling No -Circular Undermining No -Wound/Ulcer Outcome Healed- Epithelialized -Ulcer Cleansing Rinsed/ Irrigated with Saline -Foul Odor after Cleansing No -Bioengineered Tissue No -Bleeding Controlled with NA -Treatment Response Procedure Tolerated Well -Debridement - Subq, 1st 20sq cm No 3. L lateral ankle -Time 09:39 09:56 -Correct Patient Yes Yes -Correct Side, Site, Position Yes Yes -Correct Procedure Yes Yes -Procedure Performed Yes No -Type of Procedure Debridement -Clinical Debridement Subcutaneous -Tissue Removed Subcutaneous -Post Debridement (cm) - Length 0.3 0 -Post Debridement (cm) - Width 0.2 0 -Post Debridement (cm) - Depth 0.1 0 -Total Square (Post) (cm) 0.06 0 -Area of Debridement (cm) - Length 0.3 -Area of Debridement (cm) - Width 0.2 -Total Square (Area) (cm) 0.06 -Tunneling No No -Undermining/Tunneling No No -Circular Undermining No No -Wound/Ulcer Outcome Not Healed Healed- Epithelialized -Ulcer Cleansing Wound Cleanser Rinsed/ Irrigated with Saline -Foul Odor after Cleansing No No -Bioengineered Tissue No No -Bleeding Controlled with Pressure -Treatment Response Procedure Tolerated Well -Offloading No -Debridement - Subq, 1st 20sq cm Yes Pain Scale: 0-10 Numeric Is Patient Pain Free? Yes Yes - Nurse 3 - General Ulcer D/C NN Start: 06/05/23 08:53 Freq: Status: Active Protocol: Activity Type Activity Date Activity User E-sign Co-sign Detail Recorded Client Recorded Date Recorded By Document 06/05/23 10:01 [employer] Desktop 06/05/23 10:01 [employer] Document 06/19/23 10:03 MW Desktop 06/19/23 10:04 MW 06/05/23 06/19/23 10:01 10:03 Wound Care Center Nurse 3 6. R great toe medial -Other Covering LOTA 5. R great toe anterior -Other Dressing LOTA 3. L lateral ankle -Ulcer Cleansing Rinsed/ Not Cleansed Irrigated with Saline -Foul Odor after Cleansing No No -Negative Pressure Wound Therapy N/A -Primary Dressing Applied C Hydrogel ($), Mepilex Border Mepilex Border -Mepilex Border 1 1 Treatment Response Procedure Procedure Tolerated Well Tolerated Well Pain Scale: 0-10 Numeric Is Patient Pain Free? Yes Yes Teaching: Wound Center Diagnostic Tests Ordered -Person Taught Patient,Family -Teaching Method Discussion -Response to teaching Verbalize understanding WC - Visit Discharge Discharge Condition Stable Stable Ambulatory Status Ambulatory Ambulatory Transportation Private Auto Private Auto Accompanied by Medication Reconcilliation completed & No provided to patient/care provider Clinical Summary of Care Provided Yes Notes: healed, discharged from clinic Assessment/Plan Assessment/Plan (1) Essential hypertension: CODE(S): I10 - Essential (primary) hypertension (2) Uncontrolled type 2 diabetes mellitus with hyperglycemia: CODE(S): E11.65 - Type 2 diabetes mellitus with hyperglycemia (3) Nonhealing nonsurgical wound: CODE(S): T14.8XXA - Other injury of unspecified body region, initial encounter (4) Atherosclerosis of coronary artery of [place] heart without angina pectoris: CODE(S): I25.10 - Atherosclerotic heart disease of [place] coronary artery without angina pectoris QUALIFIERS: Coronary Disease-Associated Artery/Lesion type: [place] artery Qualified Code(s): I25.10 - Atherosclerotic heart disease of [place] coronary artery without angina pectoris (5) Chronic ulcer of left ankle with fat layer exposed: CODE(S): L97.322 - Non-pressure chronic ulcer of left ankle with fat layer exposed (6) Diabetic ulcer of left ankle associated with type 2 diabetes mellitus, with fat layer exposed: CODE(S): E11.622 - Type 2 diabetes mellitus with other skin ulcer; L97.322 - Non-pressure chronic ulcer of left ankle with fat layer exposed (7) Diabetes: CODE(S): E11.9 - Type 2 diabetes mellitus without complications QUALIFIERS: Diabetes mellitus type: type 2 Diabetes mellitus group home insulin use: 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 At home wound-care instructions: Ulcers are healed. Pad and protect the ankle for the next few days with foam dressing. Will have him continue to use tubigrip compression to left leg to help with edema. Off-loading: The patient was instructed to avoid pressure and friction on the affected areas. Reposition every 2 hours at minimum. Avoid prolonged standing and/or dangling of legs. When seated, feet should be elevated at chest level. Frequent ambulation is encouraged. Diet: Patient encouraged to increase protein intake while taking caution to avoid high carbohydrate and/or sugar intake. Labs/cultures/imaging: Patient pulled up on his phone and PANCHO left ankle in May 2022 was 1.07. Culture 01/09/23 positive for Pseudomonas, Klebsiella, Enterococcus and Anaerobic bacteria. Venous studies unremarkable. PANCHO left ankle 01/14 was 1.37 CTA with run-off done at 01/21/23 and there is some stenosis in the anterior tibial artery but blood flow to dorsalis pedis is present. Follow-up: It has been a pleasure to treat Calvin. He was encouraged to return if ulcer returns. Note: [employer] speech recognition charcoal unloader software was used to create portions of this document. Sound-alike and misspelled words, as well as other charcoal unloader errors may be contained in the documentation.
== END 2023-07-05 23:59 | disposition home or self-care (01) ==
LOC: WC 09:15
PROVIDERS: PCP Family Medicine; Referring Provider Family Medicine; Visit Provider Family Medicine
DX: E11.621 Type 2 diabetes mellitus with foot ulcer (principal); E11.622 Type 2 diabetes mellitus with other skin ulcer; L97.511 Non-pressure chronic ulcer of other part of right foot limited to breakdown of skin; L97.322 Non-pressure chronic ulcer of left ankle with fat layer exposed; E11.65 Type 2 diabetes mellitus with hyperglycemia; I10 Essential (primary) hypertension; I25.10 Atherosclerotic heart disease of native coronary artery without angina pectoris
CPT/HCPCS: 11042; 99213; G0463

== ENCOUNTER → 2023-08-03 | Outpatient (CLI) | payer MEDICARE, OTHER, SELFPAY ==
--- NOTE | 2023-08-03 10:11 | RAD_ITS ---
INDICATION: PAIN EXAMINATION/TECHNIQUE: X-RAY - XR Hip Unilateral with Pelvis when performed; 2-3 Views COMPARISON: No relevant prior comparison study available FINDINGS: PELVIC BONES: No displaced fracture, destructive or sclerotic lesions. Note that overlapping bowel shadows may however obscure fine detail. Sacroiliac joints are unremarkable. No widening of the pubic symphysis. HIPS: The articular structures are unremarkable. No displaced fracture seen in this frontal view. Mild osteophyte formation associated with the acetabular lip bilaterally, and associated with the greater trochanter. SOFT TISSUES: No soft tissue swelling or gas. RAD/HIP, UNI W/ Pelvis 2-3 Views IMPRESSION: 1. No evidence of displaced pelvic or hip fracture. 2. Mild degenerative change and osteophyte formation. Joint space is maintained. Electronically Signed: Kevin Lopez MD at 0:34 EST ,
[2023-08-03 13:54] LABS: Anion Gap 4 (5-15); BUN 21 mg/dL (7-18); BUN/Creat Ratio 19.4 RATIO (10-20); Chloride 107 mmol/L (98-107); Cholesterol 124 mg/dL (200); Creatinine, Serum 1.08 mg/dL (0.70-1.30); EST Glomerular Filtration Rate 72 mL/min (>60); Est Glom Filt Rate - Afr Amer 88 mL/min (>60); Glucose 240 mg/dL (74-106); High Density Lipoprotein 47 mg/dL; Potassium 4.2 mmol/L (3.5-5.1); Sodium Level 136 mmol/L (136-145); Triglycerides 161 mg/dL; Very Low Density Lipoprotein 32 mg/dL (5-40)
[2023-08-03 15:42] LABS: Microalbumin,Random Urine 31.2 mg/L (NO RANGE EST.)
== END | disposition home or self-care (01) ==
LOC: MTLAB 10:09
PROVIDERS: PCP Family Medicine; Referring Provider Family Medicine; Visit Provider Family Medicine
DX: I10 Essential (primary) hypertension (principal); M25.551 Pain in right hip
CPT/HCPCS: 36415; 73502; 80048; 80061; 82043

== ENCOUNTER → 2023-11-02 | Outpatient (CLI) | payer MEDICARE, OTHER, SELFPAY ==
[2023-11-02 12:17] LABS: Absolute Lymphocyte Count 0.98 X10^3/uL (0.83-4.51); Absolute Neutrophil Count 3.4 X10^3/uL (2.0-7.7); Basophil# 0.03 X10^3/uL; Basophil% 0.6 % (0-1); Eosinophil# 0.05 X10^3/uL; Hematocrit 46.3 % (40-54); Hemoglobin 14.6 g/dL (13.0-16.5); Lymphocyte # 0.98 X10^3/ul (0.83-4.51); Lymphocyte % 19.6 % (19-41); Mean Corp Hgb Conc 31.5 g/dL (32-36); Mean Corpuscular Hgb 30.2 pg (27.0-32.0); Mean Corpuscular Volume 95.7 fL (80-94); Mean Platelet Vol. 9.6 fl (6.2-12.0); Monocyte# 0.47 X10^3/uL; Monocyte% 9.4 % (0-10); NRBC Flagged by Analyzer 0 % (0-5); Neutrophil # 3.39 X10^3/uL (2.7-7.7); Neutrophil % 67.6 % (47-70); Platelet Count 175 K/mm3 (150-450); Red Blood Count 4.84 M/mm3 (4.6-6.2)
[2023-11-02 13:36] LABS: ALB/GLOB Ratio 1.1 RATIO (0.9-2.4); AST(SGOT) 31 U/L (15-37); Alanine Aminotransfer ALT/SGPT 49 U/L (16-61); Albumin, Serum 3.8 g/dL (3.2-5.0); Alkaline Phosphatase 118 U/L (45-117); Anion Gap 6 (5-15); BUN 18 mg/dL (7-18); Calcium,Total 9.4 mg/dL (8.5-10.1); Chloride 107 mmol/L (98-107); Cholesterol 69 mg/dL (200); Creatinine, Serum 1.06 mg/dL (0.70-1.30); EST Glomerular Filtration Rate 74 mL/min (>60); Est Glom Filt Rate - Afr Amer 89 mL/min (>60); Globulin 3.5 g/dL (2.2-4.2); Glucose 214 mg/dL (74-106); High Density Lipoprotein 28 mg/dL; Potassium 3.9 mmol/L (3.5-5.1); Protein, Total 7.3 g/dL (6.4-8.2); Sodium Level 136 mmol/L (136-145); Thyroid Stim Hormone (TSH) 1.07 uIU/mL (0.358-3.74); Triglycerides 146 mg/dL; Very Low Density Lipoprotein 29 mg/dL (5-40)
== END | disposition home or self-care (01) ==
PROVIDERS: PCP Family Medicine; Referring Provider Family Medicine; Visit Provider Family Medicine
DX: R19.7 Diarrhea, unspecified (principal); I10 Essential (primary) hypertension; R53.83 Other fatigue
CPT/HCPCS: 36415; 80053; 80061; 84403; 84443; 85025; 87177; 87209; 87493

== ENCOUNTER 2024-12-28 08:30 | Outpatient (RCR) | payer MEDICARE, OTHER, SELFPAY ==
[2024-12-21 08:32] VITALS: BP 139/79; PULSE 87; RESP 18; TEMP 36.3; BMI 32.3
--- NOTE | 2024-12-21 09:31 | HP.PCM_ITS ---
History of Present Illness
--- NOTE | 2024-12-21 09:31 | PCM.WC.HP ---
History of Present Illness Date of Service: 12/21/24 Chief Complaint: non healing ulcer of left lateral malleolus/ankle History of Wound: Be is a 67-year-old white male with type 2 diabetes and a history of poor healing wounds that presents to the wound center today for evaluation and treatment of a nonhealing ulcer of his left lateral ankle/malleolus that started approximately 4 weeks ago. He thinks that his boot was rubbing the area and then noticed that there was drainage and was treating with a bandaid and antibiotic ointment with no improvement and increased drainage and erythema and swelling and then was seen by his PCP who started him on doxycyline and there was still no improvement so he gave him 1 dose of IM Rocephin and then started him on Cephalexin and Bactrim for which he has been taking almost 10 days of treatment and has 5 more days left of medication. He was then referred to the wound center for treatment. He has been covering the wound with gauze and antibiotic ointment but leaving it open to air when he is at home. He appears to have Charcot of the right foot and a collapsed right arch. He has had vascular testing by Dr. 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 His last A1C is unknown. He denies fever, chills, increased erythema or drainage and has been taking his antibiotics as instructed. Wound culture 01/09/23 was positive for anaerobic bacteria, Pseudomonas, Enterococcus and Klebsiella. He was started on Augmentin and Ciprofloxacin and completed treatment. He had vascular testing and venous insufficiency not identified. ABIs were WNL and not changed from previous. He had CTA with runoff scheduled on 01/21/23 which showed some areas of stenosis in left leg but there was blood flow to dorsalis pedis artery. He had consultation with vascular surgery on 02/02/[address] Gibson prefers to defer any surgical intervention for now as he does not think there is significant arterial disease in his left leg contributing to his difficulty healing. Progress of Wound: Patient is a 68-year-old diabetic male presenting to wound care center today for evaluation of full-thickness wound to the lateral left ankle. Patient has been seen by outside provider at [facility] who has been treating him with infectious disease on oral antibiotics for about 6 weeks for the left fifth digit for chronic osteomyelitis. He has been treating the lateral left ankle wound per their instructions and is here today for more expert care and treatment. Patient does not check his blood sugar regularly, his last A1c was 6.8%. He denies any falls or trauma. He denies pressure. Denies constitutional symptoms. No other pedal complaints at this time. [facility] Medical History (Updated 12/21/24 @ 11:[address] Sunny Hyatt, DPChavez) Acute painful diabetic polyneuropathy Essential hypertension Gout Wears glasses Cancer Enlarged prostate High cholesterol Erythrocytosis Back pain Non-smoker CPAP (continuous positive airway pressure) dependence Sleep apnea History of pain when walking History of echocardiogram History of heart attack Cardiology follow-up encounter COVID-19 Gallstones History of myocardial infarction in adulthood (~2016) Diabetes HTN (hypertension) Atherosclerosis of coronary artery of [place] heart without angina pectoris Hyperlipidemia Type 2 diabetes mellitus without complication Erectile dysfunction Home Medications ?Medication ?Instructions ?Recorded ?Last Taken ?Type aspirin 81 mg tablet,delayed 81 mg PO DAILY@0800 05/06/18 03/19/22 History release fish oil-dha-epa 1,200 mg-144 1 ea PO BID 05/06/18 Unknown History mg-216 mg capsule metformin 1,000 mg tablet 1,000 mg PO BID #180 tabs 06/13/19 Unknown History lisinopril 10 mg tablet 10 mg PO DAILY #90 tabs 06/14/19 03/25/22 02:00 Rx coenzyme Q10 100 mg capsule 100 mg PO DAILY 06/07/21 Unknown History loratadine 10 mg tablet (Claritin) 10 mg PO DAILY 10/09/21 Unknown History allopurinol 300 mg tablet 300 mg PO DAILY gout 10/30/21 Unknown History hydroxyurea 500 mg capsule 1,000 mg PO DAILY 02/02/23 Unknown History empagliflozin 10 mg tablet 25 mg PO DAILY 08/18/23 Unknown History (Jardiance) dulaglutide 4.5 mg/0.5 mL 4.5 mg subcut QWEEK 03/15/24 Unknown History subcutaneous pen injector (Trulicity) glimepiride 4 mg tablet 4 mg PO BID 03/15/24 Unknown History rosuvastatin 20 mg tablet 20 mg PO DAILY #90 tabs 06/17/24 Unknown Rx carvedilol 12.5 mg tablet 18.75 mg (1.5 x 12.5 mg) PO BID 90 06/24/24 Unknown Rx days #270 tabs hydroxyurea 500 mg capsule 500 mg PO TID 10/20/24 Unknown History multivitamin (Daily Multi-Vitamin 1 tab PO QAM 10/20/24 Unknown History tablet) doxycycline monohydrate 100 mg 100 mg PO BID 12/21/24 Unknown History capsule levofloxacin 500 mg tablet 500 mg PO DAILY 12/21/24 Unknown History Allergy/AdvReac Type Severity Reaction Status Date / Time No Known Allergies Allergy Verified 12/21/24 08:29 Family History Grandmother Myocardial infarction Father Heart disease Surgical History History of cholecystectomy (03/25/22) History of cardiac catheterization Hx of wisdom tooth extraction History of colonoscopy (~2008) Hx of cataract surgery H/O vasectomy History of tonsillectomy History of coronary artery stent placement (04/22/16) Social History Smoking Status: Never smoker alcohol intake: never substance use type: does not use caffeine: Yes Type: coffee Number of servings: 1 and tea Vital Signs Vital Signs Vital Signs: 12/21/24 08:32 Temperature 97.3 F L Temperature Source Temporal Pulse Rate 87 Respiratory Rate 18 Blood Pressure 139/79 H Blood Pressure Mean 99 Blood Pressure Source Monitor Blood Pressure Position Sitting Blood Pressure Location Left Arm Oxygen Delivery Method Room Air Weight Weight: 107.955 kg Body Mass Index (BMI) 32.3 Physical Exam Narrative Vascular: DP and PT pulse are palpable bilateral. CFT is brisk. Blanchable erythema appreciated to the right fourth digit. Blanchable erythema to the periwound of the left lateral ankle full-thickness wound. Skin temperature gradient warm to warm from proximal ankles to distal digit bilateral. Neurological: Light touch intact. Protective station is diminished to the forefoot but reestablished at the midfoot and ankle. Dermatological: Evidence of sanguinous crusts appreciated to the right and left fourth digit. Evidence of dactylitis appreciated to the fourth digit to the right lower extremity. Evidence of blanchable erythema to the right fourth digit. Evidence of full-thickness wound down to muscle to the left lateral ankle measuring 0.8 x 0.6 x 0.2 cm. Blanchable erythema to the periwound. No malodor. Negative probe to bone. Excisional debridement down to including subcutaneous tissue with a number 3 mm dermal curette to left lateral ankle full-thickness wound without incident.. Right measurement was 0.6 x 0.5 x 0.1 cm. Postdebridement measurement is 0.8 x 0.6 x 0.2 cm. Musculoskeletal: Evidence of rocker foot deformity secondary to Charcot to left lower extremity. Rectus foot type to the left. Pain on palpation to the full-thickness wound left lateral ankle. No pain on palpation to the right fourth digit. No pain with calf pressure. Debridement Note Debridement Note Debridement Free Text: Excisional debridement down to including subcutaneous tissue with a number 3 mm dermal curette to left lateral ankle full-thickness wound without incident.. Right measurement was 0.6 x 0.5 x 0.1 cm. Postdebridement measurement is 0.8 x 0.6 x 0.2 cm. Post-Debridement Measurements and Additional Note: Post-Debridement Measurements/Treatment - Nurse 1 - General Ulcer Assessment Start: 12/21/24 08:32 Freq: Status: Active Protocol: AIXA Activity Type Activity Date Activity User E-sign Co-sign Detail Recorded Client Recorded Date Recorded By Document 12/21/24 08:32 [id number] 12/21/24 08:55 KW 12/21/24 08:32 - Today's Visit Information Type of service Initial Visit Arrival Mode Ambulatory Accompanied by Patient Identification Verified (Name & Yes ) Height and Weight Height 6 ft Weight 107.955 kg Weight in Pounds 238.0 lbs Weight Measurement Method Estimated by Patient Body Mass Index (BMI) 32.3 BMI Classification Obese Vital Signs Temperature (97.8 F-99.1 F) 97.3 F L Temperature Source Temporal Pulse Rate (60-100) 87 Pulse Location Monitor Respiratory Rate (12-18) 18 Respiratory rate source Observation Oxygen Delivery Method Room Air Blood Pressure (90/60-120/80) 139/79 H Blood Pressure Mean 99 Source Monitor Position Sitting Blood Pressure Location Left Arm History Since Last Visit- (Skip if this is Patient's initial visit) Left Footwear Regular Shoe Right Footwear Regular Shoe Pain Scale: 0-10 Numeric Is Patient Pain Free? No LT LAT ANKLE -Description Sharp,Burning -Alleviating Factors/Interventions Inactivity/ Resting,Turning /Repositioning Lower Extremity Assessment/ Foot Assessment/ Toe Nail Assessment Right -Posterior Tibial Doppler Multiphasic -Dorsalis Pedis Doppler Monophasic -Extremity Color Normal -Hair Growth on Legs Yes -Hair Growth on Toes No -Temperature of Extremity Cool -Capillary Refill Less than 3 Seconds -Thick No -Discolored No -Deformed No -Improper Length & Hygeine Yes Left -Posterior Tibial Palpable Yes -Posterior Tibial Doppler Multiphasic -Dorsalis Pedis Palpable Yes -Dorsalis Pedis Doppler Monophasic -Extremity Color Normal -Hair Growth on Legs Yes -Hair Growth on Toes No -Temperature of Extremity Cool -Capillary Refill Less than 3 Seconds -Thick Yes -Discolored Yes -Deformed Yes -Improper Length & Hygeine No Communication Assessment Preferred language [place] Spine Specialist Required No Able to Read Yes Able to Write Yes Communication Tools None Caregiver Communication Skills No Impairment Impairment Right Hearing Abillity Normal Left Hearing Abillity Normal Visual Assistive Devices Glasses Teaching Assessment Preferences Verbal,Written, Demonstration Barriers to Learning None Readiness To Learn Excellent Willingness to Engage in Self Management High Activies Readiness to Engage in Self Management High Activities Anxiety Level Calm Cooperation Cooperative Perception Coherent Interest in Health Problem Asks Questions Education Importance Acknowledges Need Does Patient Smoke tobacco or other No substances Smoking Status Never smoker Is Patient Diabetic Yes Functional Assessment Recent Decline in Ability to Perform Denies Any Declines Culture/Anabaptist/Metal Buggy Operator Cultural/Anabaptist Needs that may affect No Treatment Plan Would you allow our hospital power barker to No meet you for the purpose of spiritual/ emotional support? Metal Buggy Operator to contact place of zoroastrianism No WC - Nurse 1 - General Ulcer Measurement Start: 12/21/24 08:32 Freq: Status: Active Protocol: Activity Type Activity Date Activity User E-sign Co-sign Detail Recorded Client Recorded Date Recorded By Document 12/21/24 08:32 KW [id number] 12/21/24 08:55 KW 12/21/24 08:32 Wound Center Nurse 1 #8 RT 4TH TOE -Current Size (cm) - Length 0.1 -Current Size (cm) - Width 0.1 -Current Size (cm) - Depth 0.1 -Total Square Cm 0.01 -Date of Last Picture (Recall this 12/21/24 field) -Exudate Amt None Present -Texture (Gricelda-wound Skin Appearance) Assessed, Localized Edema -Moisture (Gricelda-wound Skin Appearance) Assessed -Color (Gricelda-wound Skin Appearance) Assessed, Erythema -Temperature (Gricelda-wound Skin No Abnormality Appearance) (Pt Warm) -Tenderness on Palpation (Gricelda-wound No Skin Appearance) -Foul Odor after Cleansing No -Anesthetic Used 5% Lidocaine Gel -Wound Comment(s) SCABBED AND CLOSED, HX OF OSTEO #7 LT LAT ANKLE -Current Size (cm) - Length 0.6 -Current Size (cm) - Width 0.3 -Current Size (cm) - Depth 0.3 -Total Square Cm 0.18 -Date of Last Picture (Recall this 12/21/24 field) -Exudate Amt Medium -Exudate Type Serosanguineous -Wound Margin Distinct, Outline Attached -Granulation Amt Small (1-33%) -Granulation Quality Kidron -Necrosis Amt Large (67-100%) -Necrotic Tissue Type Adherent Slough -Texture (Gricelda-wound Skin Appearance) Assessed, Localized Edema -Moisture (Gricelda-wound Skin Appearance) Assessed -Color (Gricelda-wound Skin Appearance) Assessed, Erythema -Temperature (Gricelda-wound Skin No Abnormality Appearance) (Pt Warm) -Tenderness on Palpation (Gricelda-wound No Skin Appearance) -Ulcer Cleansing Soap and Water -Foul Odor after Cleansing No -Anesthetic Used 5% Lidocaine Gel Right Calf (cm) 38 Right Ankle (cm) 23 Left Calf (cm) 39 Left Ankle (cm) 25 WC - Nurse 2 - General Ulcer CM Notes Start: 12/21/24 08:32 Freq: Status: Active Protocol: Activity Type Activity Date Activity User E-sign Co-sign Detail Recorded Client Recorded Date Recorded By Document 12/21/24 09:12 MONICO [id number] 12/21/24 09:18 MONICO 12/21/24 09:12 Wound Center Nurse 2 #8 RT 4TH TOE -Correct Patient Yes -Correct Side, Site, Position No -Correct Procedure No -Procedure Performed No -Post Debridement (cm) - Length 0 -Post Debridement (cm) - Width 0 -Post Debridement (cm) - Depth 0 -Total Square (Post) (cm) 0 -Area of Debridement (cm) - Length 0 -Area of Debridement (cm) - Width 0 -Total Square (Area) (cm) 0 -Wound/Ulcer Outcome Not Healed #7 LT LAT ANKLE -Time 09:16 -Correct Patient Yes -Correct Side, Site, Position Yes -Correct Procedure Yes -Procedure Performed Yes -Type of Procedure Debridement -Clinical Debridement Subcutaneous -Tissue Removed Subcutaneous -Post Debridement (cm) - Length 0.8 -Post Debridement (cm) - Width 0.6 -Post Debridement (cm) - Depth 0.2 -Total Square (Post) (cm) 0.48 -Area of Debridement (cm) - Length 0.8 -Area of Debridement (cm) - Width 0.6 -Total Square (Area) (cm) 0.48 -Tunneling No -Undermining/Tunneling No -Circular Undermining No -Wound/Ulcer Outcome Not Healed -Ulcer Cleansing Rinsed/ Irrigated with Saline -Foul Odor after Cleansing No -Bioengineered Tissue No -Bleeding Controlled with Pressure -Treatment Response Procedure Tolerated Well -Offloading No -Debridement - Subq, 1st 20sq cm Yes Pain Scale: 0-10 Numeric Is Patient Pain Free? Yes Assessment/Plan Assessment/Plan (1) Non-pressure chronic ulcer of left ankle with fat layer exposed: CODE(S): L97.322 - Non-pressure chronic ulcer of left ankle with fat layer exposed PLAN: Patient was examined and evaluated. All findings were discussed with the patient. All questions were answered to the patient's satisfaction. Excisional debridement down to including subcutaneous tissue with a number 3 mm dermal curette to left lateral ankle full-thickness wound without incident.. Right measurement was 0.6 x 0.5 x 0.1 cm. Postdebridement measurement is 0.8 x 0.6 x 0.2 cm. Left lower extremities were cleaned and patted dry. We will change dressing to Zohreh every other day cover with dry sterile dressing and light compression wrap. Educated patient to check his sugars at least after meals to see if he is well-controlled as his A1c is only 6.8%. I did educate the patient that that is a average over 3 months and he could be over 200 mg/dL of blood sugar in a day which she was also understanding of. Patient continues antibiotics as prescribed by infectious disease per [facility]. I did recommend that if he fails oral treatment would recommend surgical intervention to the right fourth digit consisting of amputation which I can provide or he can go back and see his professor computer science as needed. Patient will continue to follow all orders and follow-up weekly. Follow-up at the wound care center with Dr. Hyatt in 1 week. (2) Chronic osteomyelitis of right foot: CODE(S): M86.671 - Other chronic osteomyelitis, right ankle and foot
--- NOTE | 2024-12-22 10:11 | WC ---
PHOTO 12/21/24 L 4TH TOE
--- NOTE | 2024-12-22 10:17 | WC ---
PHOTO 12/21/24 LT LATERAL ANKLE
[2024-12-28 08:24] VITALS: BP 133/81; PULSE 87; RESP 16; TEMP 36.1; BMI 32.3
--- NOTE | 2024-12-28 09:07 | PN.PCM_ITS ---
History of Present Illness
--- NOTE | 2024-12-28 09:07 | PCM.WC.PN ---
History of Present Illness Date of Service: 12/28/24 Chief Complaint: non healing ulcer of left lateral malleolus/ankle History of Wound: Be is a 67-year-old white male with type 2 diabetes and a history of poor healing wounds that presents to the wound center today for evaluation and treatment of a nonhealing ulcer of his left lateral ankle/malleolus that started approximately 4 weeks ago. He thinks that his boot was rubbing the area and then noticed that there was drainage and was treating with a bandaid and antibiotic ointment with no improvement and increased drainage and erythema and swelling and then was seen by his PCP who started him on doxycyline and there was still no improvement so he gave him 1 dose of IM Rocephin and then started him on Cephalexin and Bactrim for which he has been taking almost 10 days of treatment and has 5 more days left of medication. He was then referred to the wound center for treatment. He has been covering the wound with gauze and antibiotic ointment but leaving it open to air when he is at home. He appears to have Charcot of the right foot and a collapsed right arch. He has had vascular testing by Dr. Flores his administrative hearing officer at the [facility] last year. His last A1C is unknown. He denies fever, chills, increased erythema or drainage and has been taking his antibiotics as instructed. Wound culture 01/09/23 was positive for anaerobic bacteria, Pseudomonas, Enterococcus and Klebsiella. He was started on Augmentin and Ciprofloxacin and completed treatment. He had vascular testing and venous insufficiency not identified. ABIs were WNL and not changed from previous. He had CTA with runoff scheduled on 01/21/23 which showed some areas of stenosis in left leg but there was blood flow to dorsalis pedis artery. He had consultation with vascular surgery on 02/02/[address] Gibson prefers to defer any surgical intervention for now as he does not think there is significant arterial disease in his left leg contributing to his difficulty healing. Progress of Wound: Stable improving wound to the lateral left ankle Subjective Subjective Patient is a 68-year-old diabetic male presenting to wound care center today follow-up evaluation of left lower extremity lateral ankle full-thickness wound. Patient has been compliant with dressing changes. He admits that there is some redness around the wound but goes away when he elevates his leg. His blood sugar is minimally checked on a daily basis. His last A1c was 6.0%. He is still on doxycycline and Levaquin from infectious disease from [facility]. Denies trauma. Denies constitutional symptoms. No other complaints at this time. Objective Data Objective Data Vital Signs: Vital Signs Temp Pulse Resp BP O2 Del Method 97.0 F L 87 16 133/81 H Room Air 12/28/24 08:24 12/28/24 08:24 12/28/24 08:24 12/28/24 08:24 12/28/24 08:24 Oxygen Delivery Method Room Air Weight: 107.955 kg Body Mass Index (BMI) 32.3 Physical Exam Narrative Vascular: DP and PT pulse are palpable bilateral. CFT is brisk. Blanchable erythema appreciated to the right fourth digit. Blanchable erythema to the periwound of the left lateral ankle full-thickness wound. Skin temperature gradient warm to warm from proximal ankles to distal digit bilateral. Neurological: Light touch intact. Protective station is diminished to the forefoot but reestablished at the midfoot and ankle. Dermatological: Full-thickness wound to the lateral left ankle measuring 0.6 x 0.4 x 0.2 cm. Wound base is fibrogranular nature. No drainage. No tunneling or probe to bone. Excisional debridement down to including subcutaneous tissue with a number 3 mm dermal curette to left lateral ankle full-thickness wound without incident. Predebridement measurement was 0.5 x 0.3 x 0.1 cm. Postdebridement measurement is 0.6 x 0.4 x 0.2 cm. Musculoskeletal: Mild pain to palpation to the left lateral ankle full-thickness wound. No pain with calf pressure. Debridement Note Debridement Note Debridement Free Text: Excisional debridement down to including subcutaneous tissue with a number 3 mm dermal curette to left lateral ankle full-thickness wound without incident. Predebridement measurement was 0.5 x 0.3 x 0.1 cm. Postdebridement measurement is 0.6 x 0.4 x 0.2 cm. Post-Debridement Measurements and Additional Note: Post-Debridement Measurements/Treatment DOMINIQUE - Nurse 1 - General Ulcer Assessment Start: 12/21/24 08:32 Freq: Status: Active Protocol: AIXA Activity Type Activity Date Activity User E-sign Co-sign Detail Recorded Client Recorded Date Recorded By Document 12/21/24 08:32 KW [id number] 12/21/24 08:55 KW Document 12/28/24 08:24 GM [id number] 12/28/24 08:26 12/21/24 12/28/24 08:32 08:24 WC - Today's Visit Information Type of service Initial Visit Follow-up Visit (Physician/MARKETING COMMUNICATIONS SPECIALIST ) Arrival Mode Ambulatory Ambulatory Transfer Assistance None Accompanied by Patient Identification Verified (Name & Yes Yes ) Height and Weight Height 6 ft Weight 107.955 kg Weight in Pounds 238.0 lbs Weight Measurement Method Estimated by Patient Body Mass Index (BMI) 32.3 32.3 BMI Classification Obese Obese Vital Signs Temperature (97.8 F-99.1 F) 97.3 F L 97.0 F L Temperature Source Temporal Temporal Pulse Rate (60-100) 87 87 Pulse Location Monitor Monitor Respiratory Rate (12-18) 18 16 Respiratory rate source Observation Observation Oxygen Delivery Method Room Air Room Air Blood Pressure (90/60-120/80) 139/79 H 133/81 H Blood Pressure Mean (mm Hg) 99 98 Source Monitor Monitor Position Sitting Sitting Blood Pressure Location Left Arm Left Arm History Since Last Visit- (Skip if this is Patient's initial visit) Left Footwear Regular Shoe Regular Shoe Right Footwear Regular Shoe Regular Shoe Pain Scale: 0-10 Numeric Is Patient Pain Free? No Yes LT LAT ANKLE -Description Sharp,Burning -Alleviating Factors/Interventions Inactivity/ Resting,Turning /Repositioning Lower Extremity Assessment/ Foot Assessment/ Toe Nail Assessment Right -Posterior Tibial Doppler Multiphasic -Dorsalis Pedis Doppler Monophasic -Extremity Color Normal -Hair Growth on Legs Yes -Hair Growth on Toes No -Temperature of Extremity Cool -Capillary Refill Less than 3 Seconds -Thick No -Discolored No -Deformed No -Improper Length & Hygeine Yes Left -Posterior Tibial Palpable Yes -Posterior Tibial Doppler Multiphasic -Dorsalis Pedis Palpable Yes -Dorsalis Pedis Doppler Monophasic -Extremity Color Normal -Hair Growth on Legs Yes -Hair Growth on Toes No -Temperature of Extremity Cool -Capillary Refill Less than 3 Seconds -Thick Yes -Discolored Yes -Deformed Yes -Improper Length & Hygeine No Communication Assessment Preferred language Turkmen Sand Technician Required No Able to Read Yes Able to Write Yes Communication Tools None Caregiver Communication Skills No Impairment Impairment Right Hearing Abillity Normal Left Hearing Abillity Normal Visual Assistive Devices Glasses Teaching Assessment Preferences Verbal,Written, Demonstration Barriers to Learning None Readiness To Learn Excellent Willingness to Engage in Self Management High Activies Readiness to Engage in Self Management High Activities Anxiety Level Calm Cooperation Cooperative Perception Coherent Interest in Health Problem Asks Questions Education Importance Acknowledges Need Does Patient Smoke tobacco or other No substances Smoking Status Never smoker Is Patient Diabetic Yes Functional Assessment Recent Decline in Ability to Perform Denies Any Declines Culture/Mormon/Gold Reclaimer Cultural/Mormon Needs that may affect No Treatment Plan Would you allow our [facility] training development director to No meet you for the purpose of spiritual/ emotional support? Gold Reclaimer to contact place of gnosticism No WC - Nurse 1 - General Ulcer Measurement Start: 12/21/24 08:32 Freq: Status: Active Protocol: Activity Type Activity Date Activity User E-sign Co-sign Detail Recorded Client Recorded Date Recorded By Document 12/21/24 08:32 KW [id number] 12/21/24 08:55 KW Document 12/28/24 08:24 [id number] 12/28/24 08:26 12/21/24 12/28/24 08:32 08:24 Wound Center Nurse 1 #8 RT 4TH TOE -Current Size (cm) - Length 0.1 -Current Size (cm) - Width 0.1 -Current Size (cm) - Depth 0.1 -Total Square Cm 0.01 -Date of Last Picture (Recall this 12/21/24 field) -Exudate Amt None Present -Texture (Gricelda-wound Skin Appearance) Assessed, Localized Edema -Moisture (Gricelda-wound Skin Appearance) Assessed -Color (Gricelda-wound Skin Appearance) Assessed, Erythema -Temperature (Gricelda-wound Skin No Abnormality Appearance) (Pt Warm) -Tenderness on Palpation (Gricelda-wound No Skin Appearance) -Foul Odor after Cleansing No -Anesthetic Used 5% Lidocaine Gel -Wound Comment(s) SCABBED AND CLOSED, HX OF OSTEO #7 LT LAT ANKLE -Combined with other wound No -Current Size (cm) - Length 0.6 0.5 -Current Size (cm) - Width 0.3 0.4 -Current Size (cm) - Depth 0.3 0.2 -Total Square Cm 0.18 0.20 -Date of Last Picture (Recall this 12/21/24 12/28/24 field) -Photo Taken Yes -Epithelialization Small 1-33% -Tunneling No -Undermining/Tunneling No -Circular Undermining No -Exudate Amt Medium Small -Exudate Type Serosanguineous Yellow/Green -Wound Margin Distinct, Distinct, Outline Outline Attached Attached -Granulation Amt Small (1-33%) Small (1-33%) -Granulation Quality Destin Destin -Slough/Fibrin Yes -Necrosis Amt Large (67-100%) None Present (0 %) -Necrotic Tissue Type Adherent Slough -Texture (Gricelda-wound Skin Appearance) Assessed, Assessed Localized Edema -Moisture (Gricelda-wound Skin Appearance) Assessed Assessed -Color (Gricelda-wound Skin Appearance) Assessed, Assessed, Erythema Erythema -Temperature (Gricelda-wound Skin No Abnormality No Abnormality Appearance) (Pt Warm) (Pt Warm) -Tenderness on Palpation (Gricelda-wound No No Skin Appearance) -Ulcer Cleansing Soap and Water Soap and Water -Foul Odor after Cleansing No No -Anesthetic Used 5% Lidocaine 5% Lidocaine Gel Gel Lower Limb Edema Present No Right Calf (cm) 38 Right Ankle (cm) 23 Left Calf (cm) 39 37.8 Left Ankle (cm) 25 24.0 WC - Nurse 2 - General Ulcer CM Notes Start: 12/21/24 08:32 Freq: Status: Active Protocol: Activity Type Activity Date Activity User E-sign Co-sign Detail Recorded Client Recorded Date Recorded By Document 12/21/24 09:12 MONICO [id number] 12/21/24 09:18 JF Document 12/28/24 08:47 DS [id number] 12/28/24 08:50 DS 12/21/24 12/28/24 09:12 08:47 Wound Center Nurse 2 #8 RT 4TH TOE -Correct Patient Yes -Correct Side, Site, Position No -Correct Procedure No -Procedure Performed No -Post Debridement (cm) - Length 0 -Post Debridement (cm) - Width 0 -Post Debridement (cm) - Depth 0 -Total Square (Post) (cm) 0 -Area of Debridement (cm) - Length 0 -Area of Debridement (cm) - Width 0 -Total Square (Area) (cm) 0 -Wound/Ulcer Outcome Not Healed #7 LT LAT ANKLE -Time 09:16 08:48 -Correct Patient Yes Yes -Correct Side, Site, Position Yes Yes -Correct Procedure Yes Yes -Procedure Performed Yes Yes -Type of Procedure Debridement Debridement -Clinical Debridement Subcutaneous Subcutaneous -Tissue Removed Subcutaneous Subcutaneous -Post Debridement (cm) - Length 0.8 0.6 -Post Debridement (cm) - Width 0.6 0.4 -Post Debridement (cm) - Depth 0.2 0.2 -Total Square (Post) (cm) 0.48 0.24 -Area of Debridement (cm) - Length 0.8 0.6 -Area of Debridement (cm) - Width 0.6 0.4 -Total Square (Area) (cm) 0.48 0.24 -Tunneling No No -Undermining/Tunneling No No -Circular Undermining No No -Wound/Ulcer Outcome Not Healed Not Healed -Ulcer Cleansing Rinsed/ Rinsed/ Irrigated with Irrigated with Saline Saline -Foul Odor after Cleansing No No -Bioengineered Tissue No No -Bleeding Controlled with Pressure Pressure -Treatment Response Procedure Procedure Tolerated Well Tolerated Well -Offloading No No -Debridement - Subq, 1st 20sq cm Yes Yes Pain Scale: 0-10 Numeric Is Patient Pain Free? Yes Yes - Nurse 3 - General Ulcer D/C NN Start: 12/21/24 08:32 Freq: Status: Active Protocol: Activity Type Activity Date Activity User E-sign Co-sign Detail Recorded Client Recorded Date Recorded By Document 12/21/24 09:45 [id number] 12/21/24 09:46 Document 12/28/24 09:03 [id number] 12/28/24 09:05 12/21/24 12/28/24 09:45 09:03 Wound Care Center Nurse 3 #7 LT LAT ANKLE -Primary Dressing Applied Promogran Promogran Zohreh Matter, Zohreh Matter, Silicone Border Silicone Border Foam 4x4 Foam 4x4 -Promogran Zohreh Matter 2 1 -Silicone Border Foam 4x4 1 1 BLE -Tubular Bandage Single Layer Single Layer -Size of Tubigrip Used Size D Size D -Size D ($) 2 2 Pain Scale: 0-10 Numeric Is Patient Pain Free? Yes Yes - Visit Discharge Discharge Condition Stable Stable Ambulatory Status Ambulatory Ambulatory Transportation Private Auto Private Auto Medication Reconcilliation completed & No No provided to patient/care provider Clinical Summary of Care Provided Yes Yes Assessment/Plan Assessment/Plan (1) Non-pressure chronic ulcer of left ankle with fat layer exposed: CODE(S): L97.322 - Non-pressure chronic ulcer of left ankle with fat layer exposed PLAN: Patient was examined and evaluated. All findings were discussed with the patient. All questions were answered to the patient's satisfaction. Excisional debridement down to including subcutaneous tissue with a number 3 mm dermal curette to left lateral ankle full-thickness wound without incident. Predebridement measurement was 0.5 x 0.3 x 0.1 cm. Postdebridement measurement is 0.6 x 0.4 x 0.2 cm. The area was wiped clean and patted dry. Moist Zohreh followed by bordered foam was applied then Tubigrip. Patient will continue twice a day dressing changes due to leg drainage. I did educate the patient that he needs to check his blood sugar at least 3-5 times per day especially after meals and in the morning and before he goes to bed. I educated the patient that even though that he has an A1c of 6% we need to see where his high and low levels are throughout the day which she is understanding of. I did educate the patient that if he is not showing much improvement at the time of the second week of January we will move forward with MRI of the left ankle for surgical planning. Follow-up at the wound care center with Dr. Hyatt in 1 week. (2) Chronic osteomyelitis of right foot: CODE(S): M86.671 - Other chronic osteomyelitis, right ankle and foot
--- NOTE | 2024-12-29 09:50 | WC ---
PHOTO 12/28/24 LEFT LATERAL ANKLE
== END 2025-01-02 23:59 | disposition home or self-care (01) ==
LOC: WC 08:30
PROVIDERS: PCP Family Medicine; Referring Provider Family Medicine; Visit Provider Podiatrist Foot & Ankle Surgery
DX: E11.622 Type 2 diabetes mellitus with other skin ulcer (principal); L97.322 Non-pressure chronic ulcer of left ankle with fat layer exposed; M86.671 Other chronic osteomyelitis, right ankle and foot; E11.42 Type 2 diabetes mellitus with diabetic polyneuropathy; E11.69 Type 2 diabetes mellitus with other specified complication; Z79.84 Long term (current) use of oral hypoglycemic drugs; I10 Essential (primary) hypertension; I25.10 Atherosclerotic heart disease of native coronary artery without angina pectoris; E78.00 Pure hypercholesterolemia, unspecified; Z95.5 Presence of coronary angioplasty implant and graft; Z86.16 Personal history of COVID-19; I25.2 Old myocardial infarction; Z90.49 Acquired absence of other specified parts of digestive tract
CPT/HCPCS: 11042; 99214; G0463

== ENCOUNTER 2025-02-02 13:37 | Outpatient (RCR) | payer MEDICARE, OTHER, SELFPAY ==
[2025-01-04 08:18] VITALS: BP 134/82; PULSE 86; RESP 18; TEMP 36.3
--- NOTE | 2025-01-04 08:46 | PCM.WC.PN ---
History of Present Illness Date of Service: 01/04/25 Chief Complaint: non healing ulcer of left lateral malleolus/ankle History of Wound: Be is a 67-year-old white male with type 2 diabetes and a history of poor healing wounds that presents to the wound center today for evaluation and treatment of a nonhealing ulcer of his left lateral ankle/malleolus that started approximately 4 weeks ago. He thinks that his boot was rubbing the area and then noticed that there was drainage and was treating with a bandaid and antibiotic ointment with no improvement and increased drainage and erythema and swelling and then was seen by his PCP who started him on doxycyline and there was still no improvement so he gave him 1 dose of IM Rocephin and then started him on Cephalexin and Bactrim for which he has been taking almost 10 days of treatment and has 5 more days left of medication. He was then referred to the wound center for treatment. He has been covering the wound with gauze and antibiotic ointment but leaving it open to air when he is at home. He appears to have Charcot of the right foot and a collapsed right arch. He has had vascular testing by Dr. Flores his diesel engine pipe fitter at the [facility] last year. His last A1C is unknown. He denies fever, chills, increased erythema or drainage and has been taking his antibiotics as instructed. Wound culture 01/09/23 was positive for anaerobic bacteria, Pseudomonas, Enterococcus and Klebsiella. He was started on Augmentin and Ciprofloxacin and completed treatment. He had vascular testing and venous insufficiency not identified. ABIs were WNL and not changed from previous. He had CTA with runoff scheduled on 01/21/23 which showed some areas of stenosis in left leg but there was blood flow to dorsalis pedis artery. He had consultation with vascular surgery on 02/02/[address] Gibson prefers to defer any surgical intervention for now as he does not think there is significant arterial disease in his left leg contributing to his difficulty healing. Progress of Wound: Slow healing wound lateral left ankle Subjective Subjective Patient is a 69-year-old diabetic male presenting to wound care today for follow-up evaluation of full-thickness wound to the lateral left ankle. Patient is still on antibiotics per his infectious disease specialist at [facility]. He has been doing dressing changes with Zohreh dry sterile dressing compression wrap to left lower extremity. His blood sugars well-controlled. He states the drainage and redness has improved. He denies trauma. Denies constitutional symptoms. No other pedal complaints at this time. Objective Data Objective Data Vital Signs: Vital Signs Temp Pulse Resp BP O2 Del Method 97.3 F L 86 18 134/82 H Room Air 01/04/25 08:18 01/04/25 08:18 01/04/25 08:18 01/04/25 08:18 01/04/25 08:18 Oxygen Delivery Method Room Air Physical Exam Narrative Vascular: DP and PT pulse are palpable bilateral. CFT is brisk. Blanchable erythema to the periwound of the left lateral ankle full-thickness wound, improving. Skin temperature gradient warm to warm from proximal ankles to distal digit bilateral. Neurological: Light touch intact. Protective station is diminished to the forefoot but reestablished at the midfoot and ankle. Dermatological: Full-thickness wound to the lateral left ankle measuring 0.6 x 0.4 x 0.2 cm. Wound base is fibrogranular nature. No drainage. No tunneling or probe to bone. Excisional debridement down to including subcutaneous tissue with a number 3 mm dermal curette to left lateral ankle full-thickness wound without incident. Predebridement measurement was 0.6 x 0.3 x 0.1 cm. Postdebridement measurement is 0.6 x 0.4 x 0.2 cm. Musculoskeletal: No pain to palpation to the left lateral ankle full-thickness wound. No pain with calf pressure. Debridement Note Debridement Note Debridement Free Text: Excisional debridement down to including subcutaneous tissue with a number 3 mm dermal curette to left lateral ankle full-thickness wound without incident. Predebridement measurement was 0.6 x 0.3 x 0.1 cm. Postdebridement measurement is 0.6 x 0.4 x 0.2 cm. Post-Debridement Measurements and Additional Note: Post-Debridement Measurements/Treatment - Nurse 1 - General Ulcer Assessment Start: 01/04/25 08:18 Freq: Status: Active Protocol: DOMINIQUE.LOWEXT Activity Type Activity Date Activity User E-sign Co-sign Detail Recorded Client Recorded Date Recorded By Document 01/04/25 08:18 KW [id number] 01/04/25 08:26 KW 01/04/25 08:18 - Today's Visit Information Type of service Follow-up Visit (Physician/TIRE ADJUSTER ) Arrival Mode Ambulatory Accompanied by Patient Identification Verified (Name & Yes ) Vital Signs Temperature (97.8 F-99.1 F) 97.3 F L Temperature Source Temporal Pulse Rate (60-100) 86 Pulse Location Monitor Respiratory Rate (12-18) 18 Respiratory rate source Observation Oxygen Delivery Method Room Air Blood Pressure (90/60-120/80) 134/82 H Blood Pressure Mean (mm Hg) 99 Source Monitor Position Semi-Fowlers Blood Pressure Location Right Arm History Since Last Visit- (Skip if this is Patient's initial visit) Have you changed medications since your No last visit? Any new allergies or adverse reactions No Had a fall/change in ADL's that may No increase risk of falls Signs or symptoms of abuse and/or No neglect since last visit Have you been in the hospital since your No last visit? Has dressing in place as prescribed Yes Has compression in place as prescribed Yes Has offloadiing in place as prescribed N/A Experienced any changes in pain level or No management Left Footwear Regular Shoe Right Footwear Regular Shoe Pain Scale: 0-10 Numeric Is Patient Pain Free? Yes WC - Nurse 1 - General Ulcer Measurement Start: 01/04/25 08:18 Freq: Status: Active Protocol: Activity Type Activity Date Activity User E-sign Co-sign Detail Recorded Client Recorded Date Recorded By Document 01/04/25 08:18 KW [id number] 01/04/25 08:26 KW 01/04/25 08:18 Wound Center Nurse 1 #7 LT LAT ANKLE -Current Size (cm) - Length 0.7 -Current Size (cm) - Width 0.3 -Current Size (cm) - Depth 0.3 -Total Square Cm 0.21 -Date of Last Picture (Recall this 01/04/25 field) -Exudate Amt Medium -Exudate Type Serosanguineous -Wound Margin Thickened -Granulation Amt Small (1-33%) -Granulation Quality [place] -Necrosis Amt Large (67-100%) -Necrotic Tissue Type Adherent Slough -Texture (Gricelda-wound Skin Appearance) Assessed, Localized Edema -Moisture (Gricelda-wound Skin Appearance) Assessed -Color (Gricelda-wound Skin Appearance) Assessed, Erythema -Temperature (Gricelda-wound Skin No Abnormality Appearance) (Pt Warm) -Tenderness on Palpation (Gricelda-wound No Skin Appearance) -Ulcer Cleansing Soap and Water -Foul Odor after Cleansing No -Anesthetic Used 5% Lidocaine Gel Left Calf (cm) 38 Left Ankle (cm) 24.3 WC - Nurse 2 - General Ulcer CM Notes Start: 01/04/25 08:18 Freq: Status: Active Protocol: Activity Type Activity Date Activity User E-sign Co-sign Detail Recorded Client Recorded Date Recorded By Document 01/04/25 08:34 MONICO [id number] 01/04/25 08:36 MONICO 01/04/25 08:34 Wound Center Nurse 2 #7 LT LAT ANKLE -Time 08:35 -Correct Patient Yes -Correct Side, Site, Position Yes -Correct Procedure Yes -Procedure Performed Yes -Type of Procedure Debridement -Clinical Debridement Subcutaneous -Tissue Removed Subcutaneous -Post Debridement (cm) - Length 0.6 -Post Debridement (cm) - Width 0.4 -Post Debridement (cm) - Depth 0.2 -Total Square (Post) (cm) 0.24 -Area of Debridement (cm) - Length 0.6 -Area of Debridement (cm) - Width 0.4 -Total Square (Area) (cm) 0.24 -Tunneling No -Undermining/Tunneling No -Circular Undermining No -Wound/Ulcer Outcome Not Healed -Ulcer Cleansing Rinsed/ Irrigated with Saline -Foul Odor after Cleansing No -Bioengineered Tissue No -Bleeding Controlled with Pressure -Treatment Response Procedure Tolerated Well -Offloading No -Debridement - Subq, 1st 20sq cm Yes Pain Scale: 0-10 Numeric Is Patient Pain Free? Yes - Nurse 3 - General Ulcer D/C NN Start: 01/04/25 08:18 Freq: Status: Active Protocol: Activity Type Activity Date Activity User E-sign Co-sign Detail Recorded Client Recorded Date Recorded By Document 01/04/25 08:42 KW [id number] 01/04/25 08:43 KW 01/04/25 08:42 Wound Care Center Nurse 3 #7 LT LAT ANKLE -Primary Dressing Applied AMD Dressing 4x4,Silicone Border Foam 4x4 -AMD Dressing 4x4 1 -Silicone Border Foam 4x4 1 -Silicone Border Foam 6x6 0 Pain Scale: 0-10 Numeric Is Patient Pain Free? Yes WC - Visit Discharge Discharge Condition Stable Ambulatory Status Ambulatory Transportation Private Auto Medication Reconcilliation completed & No provided to patient/care provider Clinical Summary of Care Provided Yes Assessment/Plan Assessment/Plan (1) Non-pressure chronic ulcer of left ankle with fat layer exposed: CODE(S): L97.322 - Non-pressure chronic ulcer of left ankle with fat layer exposed PLAN: Patient was examined and evaluated. All findings were discussed with the patient. All questions were answered to the patient's satisfaction. Excisional debridement down to including subcutaneous tissue with a number 3 mm dermal curette to left lateral ankle full-thickness wound without incident. Predebridement measurement was 0.6 x 0.3 x 0.1 cm. Postdebridement measurement is 0.6 x 0.4 x 0.2 cm. The left lateral ankle was wiped clean and patted dry. Hydrogel followed by AMD pad was applied to the dressing with compression wrap. Patient will change daily. Patient educated to continue strict blood sugar control. He was educated on signs symptoms of infection. Recommend the patient to take antibiotics per infectious disease recommendation. Follow-up at the wound care center with Dr. Hyatt in 2 week.
[2025-01-18 13:19] VITALS: BP 127/74; PULSE 89; RESP 18; TEMP 36.8
--- NOTE | 2025-01-18 13:57 | PN.PCM_ITS ---
History of Present Illness Date of Service: 01/18/25 Chief Complaint: non healing ulcer of left lateral malleolus/ankle History of Wound: Be is a 67-year-old white male with type 2 diabetes and a history of poor healing wounds that presents to the wound center today for evaluation and treatment of a nonhealing ulcer of his left lateral ankle/malleolus that started approximately 4 weeks ago. He thinks that his boot was rubbing the area and then noticed that there was drainage and was treating with a bandaid and antibiotic ointment with no improvement and increased drainage and erythema and swelling and then was seen by his PCP who started him on doxycyline and there was still no improvement so he gave him 1 dose of IM Rocephin and then started him on Cephalexin and Bactrim for which he has been taking almost 10 days of treatment and has 5 more days left of medication. He was then referred to the wound center for treatment. He has been covering the wound with gauze and antibiotic ointment but leaving it open to air when he is at home. He appears to have Charcot of the right foot and a collapsed right arch. He has had vascular testing by Dr. Flores his tufting machine operator at the [facility] last year. His last A1C is unknown. He denies fever, chills, increased erythema or drainage and has been taking his antibiotics as instructed. Wound culture 01/09/23 was positive for anaerobic bacteria, Pseudomonas, Enterococcus and Klebsiella. He was started on Augmentin and Ciprofloxacin and completed treatment. He had vascular testing and venous insufficiency not identified. ABIs were WNL and not changed from previous. He had CTA with runoff scheduled on 01/21/23 which showed some areas of stenosis in left leg but there was blood flow to dorsalis pedis artery. He had consultation with vascular surgery on 02/02/[address] Gibson prefers to defer any surgical intervention for now as he does not think there is significant arterial disease in his left leg contributing to his difficulty healing. Progress of Wound: Slow healing wound lateral left ankle Subjective Subjective Patient is a 69-year-old diabetic male presented to the wound care center today follow-up evaluation of left lower extremity lateral full-thickness wound at the level of the ankle. Patient has been compliant with dressing changes. He admits that his blood sugar has been well-controlled but is using 6-year-old strips to test his blood sugar. He did follow-up with his outside tufting machine operator for nail care and will be getting an amputation to the right foot lesser digit toe secondary to osteomyelitis. Denies trauma. Denies constitutional symptoms. No other pedal complaints at this time. Objective Data Objective Data Vital Signs: Vital Signs Temp Pulse Resp BP O2 Del Method 98.2 F 89 18 127/74 H Room Air 01/18/25 13:19 01/18/25 13:19 01/18/25 13:19 01/18/25 13:19 01/04/25 08:18 Oxygen Delivery Method Room Air Physical Exam Narrative Vascular: DP and PT pulse are palpable bilateral. CFT is brisk. Blanchable erythema to the periwound of the left lateral ankle full-thickness wound, improving. Skin temperature gradient warm to warm from proximal ankles to distal digit bilateral. Neurological: Light touch intact. Protective station is diminished to the forefoot but reestablished at the midfoot and ankle. Dermatological: Full-thickness wound to the lateral left ankle measuring 0.7 x 0.6 x 0.3 cm wound base is fibrogranular nature. No drainage. No tunneling or probe to bone. Excisional debridement down to including subcutaneous tissue with a number 3 mm dermal curette to left lateral ankle full-thickness wound without incident. Predebridement measurement was 0.6 x 0.5 x 0.2 cm. Postdebridement measurement is 0.7 x 0.6 x 0.3 cm. Musculoskeletal: No pain to palpation to the left lateral ankle full-thickness wound. No pain with calf pressure. Debridement Note Debridement Note Debridement Free Text: Excisional debridement down to including subcutaneous tissue with a number 3 mm dermal curette to left lateral ankle full-thickness wound without incident. Predebridement measurement was 0.6 x 0.5 x 0.2 cm. Postdebridement measurement is 0.7 x 0.6 x 0.3 cm. Post-Debridement Measurements and Additional Note: Post-Debridement Measurements/Treatment WC - Nurse 1 - General Ulcer Assessment Start: 01/04/25 08:18 Freq: Status: Active Protocol: DOMINIQUE.KATELYNEXT Activity Type Activity Date Activity User E-sign Co-sign Detail Recorded Client Recorded Date Recorded By Document 01/04/25 08:18 [id number] 01/04/25 08:26 KW Document 07/16/25 13:19 DL [id number] 01/18/25 13:25 DL 01/04/25 01/18/25 08:18 13:19 - Today's Visit Information Type of service Follow-up Visit Follow-up Visit (Physician/UNEMPLOYMENT INSURANCE DIRECTOR (Physician/UNEMPLOYMENT INSURANCE DIRECTOR ) ) Arrival Mode Ambulatory Ambulatory Transfer Assistance None Accompanied by Patient Identification Verified (Name & Yes Yes ) Patient Requires Transmission-Based No Precautions Vital Signs Temperature (97.8 F-99.1 F) 97.3 F L 98.2 F Temperature Source Temporal Temporal Pulse Rate (60-100) 86 89 Pulse Location Monitor Monitor Respiratory Rate (12-18) 18 18 Respiratory rate source Observation Monitor Oxygen Delivery Method Room Air Blood Pressure (90/60-120/80) 134/82 H 127/74 H Blood Pressure Mean (mm Hg) 99 91 Source Monitor Monitor Position Semi-Fowlers Blood Pressure Location Right Arm History Since Last Visit- (Skip if this is Patient's initial visit) Have you changed medications since your No No last visit? Any new allergies or adverse reactions No No Had a fall/change in ADL's that may No No increase risk of falls Signs or symptoms of abuse and/or No No neglect since last visit Have you been in the hospital since your No No last visit? Has dressing in place as prescribed Yes Yes Has compression in place as prescribed Yes Yes Has offloadiing in place as prescribed N/A N/A Experienced any changes in pain level or No No management Left Footwear Regular Shoe Right Footwear Regular Shoe Pain Scale: 0-10 Numeric Is Patient Pain Free? Yes Yes - Nurse 1 - General Ulcer Measurement Start: 01/04/25 08:18 Freq: Status: Active Protocol: Activity Type Activity Date Activity User E-sign Co-sign Detail Recorded Client Recorded Date Recorded By Document 01/04/25 08:18 KW [id number] 01/04/25 08:26 KW Document 01/18/25 13:19 DL [id number] 01/18/25 13:25 DL 01/04/25 01/18/25 08:18 13:19 Wound Center Nurse 1 #7 LT LAT ANKLE -Current Size (cm) - Length 0.7 0.7 -Current Size (cm) - Width 0.3 0.5 -Current Size (cm) - Depth 0.3 0.5 -Total Square Cm 0.21 0.35 -Date of Last Picture (Recall this 01/04/25 field) -Exudate Amt Medium Small -Exudate Type Serosanguineous Sanguineous -Wound Margin Thickened Distinct, Outline Attached -Granulation Amt Small (1-33%) None Present (0 %) -Granulation Quality [place] -Necrosis Amt Large (67-100%) Small (1-33%) -Necrotic Tissue Type Adherent Slough Adherent Slough -Structure Exposed N/A -Texture (Gricelda-wound Skin Appearance) Assessed, Scarring Localized Edema -Moisture (Gricelda-wound Skin Appearance) Assessed Maceration -Color (Gricelda-wound Skin Appearance) Assessed, Erythema Erythema -Temperature (Gricelda-wound Skin No Abnormality No Abnormality Appearance) (Pt Warm) (Pt Warm) -Tenderness on Palpation (Gricelda-wound No No Skin Appearance) -Ulcer Cleansing Soap and Water Rinsed/ Irrigated with Saline -Foul Odor after Cleansing No No -Anesthetic Used 5% Lidocaine 5% Lidocaine Gel Gel Left Calf (cm) 38 Left Ankle (cm) 24.3 38 Left Foot (cm) 24.7 WC - Nurse 2 - General Ulcer CM Notes Start: 01/04/25 08:18 Freq: Status: Active Protocol: Activity Type Activity Date Activity User E-sign Co-sign Detail Recorded Client Recorded Date Recorded By Document 01/04/25 08:34 [id number] 01/04/25 08:36 Document 01/18/25 13:36 [id number] 01/18/25 13:39 01/04/25 01/18/25 08:34 13:36 Wound Center Nurse 2 #7 LT LAT ANKLE -Time 08:35 13:36 -Correct Patient Yes Yes -Correct Side, Site, Position Yes Yes -Correct Procedure Yes Yes -Procedure Performed Yes Yes -Type of Procedure Debridement Debridement -Clinical Debridement Subcutaneous Subcutaneous -Tissue Removed Subcutaneous Subcutaneous -Post Debridement (cm) - Length 0.6 0.7 -Post Debridement (cm) - Width 0.4 0.6 -Post Debridement (cm) - Depth 0.2 0.3 -Total Square (Post) (cm) 0.24 0.42 -Area of Debridement (cm) - Length 0.6 0.7 -Area of Debridement (cm) - Width 0.4 0.6 -Total Square (Area) (cm) 0.24 0.42 -Tunneling No No -Undermining/Tunneling No No -Circular Undermining No No -Wound/Ulcer Outcome Not Healed Not Healed -Ulcer Cleansing Rinsed/ Rinsed/ Irrigated with Irrigated with Saline Saline -Foul Odor after Cleansing No No -Bioengineered Tissue No No -Bleeding Controlled with Pressure Pressure -Treatment Response Procedure Procedure Tolerated Well Tolerated Well -Offloading No No -Debridement - Subq, 1st 20sq cm Yes Yes Pain Scale: 0-10 Numeric Is Patient Pain Free? Yes Yes WC - Nurse 3 - General Ulcer D/C NN Start: 01/04/25 08:18 Freq: Status: Active Protocol: Activity Type Activity Date Activity User E-sign Co-sign Detail Recorded Client Recorded Date Recorded By Document 01/04/25 08:42 SHEMAR [id number] 01/04/25 08:43 SHEMAR 01/04/25 08:42 Wound Care Center Nurse 3 #7 LT LAT ANKLE -Primary Dressing Applied AMD Dressing 4x4,Silicone Border Foam 4x4 -AMD Dressing 4x4 1 -Silicone Border Foam 4x4 1 -Silicone Border Foam 6x6 0 Pain Scale: 0-10 Numeric Is Patient Pain Free? Yes WC - Visit Discharge Discharge Condition Stable Ambulatory Status Ambulatory Transportation Private Auto Medication Reconcilliation completed & No provided to patient/care provider Clinical Summary of Care Provided Yes Assessment/Plan Assessment/Plan (1) Non-pressure chronic ulcer of left ankle with fat layer exposed: CODE(S): L97.322 - Non-pressure chronic ulcer of left ankle with fat layer exposed PLAN: Patient was examined and evaluated. All findings were discussed with the patient. All questions were answered to the patient's satisfaction. Excisional debridement down to including subcutaneous tissue with a number 3 mm dermal curette to left lateral ankle full-thickness wound without incident. Predebridement measurement was 0.6 x 0.5 x 0.2 cm. Postdebridement measurement is 0.7 x 0.6 x 0.3 cm. The left lateral ankle was wiped clean and patted dry. Hydrogel followed by AMD pad was applied to the dressing with 3M compression wrap. Patient will follow- up with nursing visit in the next few days or if the wrap stays nice and snug we will leave it on until 1 week follow-up. Patient educated to continue strict blood sugar control. He was educated on signs symptoms of infection. Follow-up at the wound care center with Dr. Hyatt in 1 week.
[2025-01-25 08:29] VITALS: BP 134/79; PULSE 86; RESP 18; TEMP 36.2
--- NOTE | 2025-01-25 09:59 | PN.PCM_ITS ---
History of Present Illness Date of Service: 01/25/25 Chief Complaint: non healing ulcer of left lateral malleolus/ankle History of Wound: Be is a 67-year-old white male with type 2 diabetes and a history of poor healing wounds that presents to the wound center today for evaluation and treatment of a nonhealing ulcer of his left lateral ankle/malleolus that started approximately 4 weeks ago. He thinks that his boot was rubbing the area and then noticed that there was drainage and was treating with a bandaid and antibiotic ointment with no improvement and increased drainage and erythema and swelling and then was seen by his PCP who started him on doxycyline and there was still no improvement so he gave him 1 dose of IM Rocephin and then started him on Cephalexin and Bactrim for which he has been taking almost 10 days of treatment and has 5 more days left of medication. He was then referred to the wound center for treatment. He has been covering the wound with gauze and antibiotic ointment but leaving it open to air when he is at home. He appears to have Charcot of the right foot and a collapsed right arch. He has had vascular testing by Dr. 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 His last A1C is unknown. He denies fever, chills, increased erythema or drainage and has been taking his antibiotics as instructed. Wound culture 01/09/23 was positive for anaerobic bacteria, Pseudomonas, Enterococcus and Klebsiella. He was started on Augmentin and Ciprofloxacin and completed treatment. He had vascular testing and venous insufficiency not identified. ABIs were WNL and not changed from previous. He had CTA with runoff scheduled on 01/21/23 which showed some areas of stenosis in left leg but there was blood flow to dorsalis pedis artery. He had consultation with vascular surgery on 02/02/[address] Gibson prefers to defer any surgical intervention for now as he does not think there is significant arterial disease in his left leg contributing to his difficulty healing. Progress of Wound: Slow healing wound lateral left ankle. Evidence of new wound to the left fourth digit. Subjective Subjective Patient is a 69-year-old diabetic male presenting to wound care center today follow-up evaluation to the left lateral ankle full-thickness wound. He has been doing dressing changes as discussed. His blood sugars well-controlled. He has new wound to the distal aspect of the left fourth digit and is unsure how it got there. No treatment as far. He does deny trauma. Denies constitutional symptoms. No other pedal complaints at this time. Objective Data Objective Data Vital Signs: Vital Signs Temp Pulse Resp BP O2 Del Method 97.2 F L 86 18 134/79 H Room Air 01/25/25 08:29 01/25/25 08:29 01/25/25 08:29 01/25/25 08:29 01/25/25 08:29 Oxygen Delivery Method Room Air Physical Exam Narrative Vascular: DP and PT pulse are palpable bilateral. CFT is brisk. Blanchable erythema to the periwound of the left lateral ankle full-thickness wound, improving. Skin temperature gradient warm to warm from proximal ankles to distal digit bilateral. Blanchable erythema appreciated to the left fourth digit full-thickness wound. Neurological: Light touch intact. Protective station is diminished to the forefoot but reestablished at the midfoot and ankle. Dermatological: Full-thickness wound to the lateral left ankle measuring 0.6 x 0.4 x 0.2 cm. Wound base is fibrogranular nature. No drainage. No tunneling or probe to bone. Evidence of full-thickness wound to the distal aspect of the left fourth digit measuring 0.7 x 0.8 x 0.1 cm. Wound base is fibrogranular nature. Evidence of blanchable erythema is also appreciated. Excisional debridement down to including subcutaneous tissue with a number 3 mm dermal curette to left lateral ankle full-thickness wound without incident. Predebridement measurement was 0.5 x 0.3 x 0.1 cm. Postdebridement measurement is 0.6 x 0.4 x 0.2 cm. Excisional debridement down to including subcutaneous tissue with a number 3 mm dermal curette to the left fourth digit full-thickness wound without incident. Predebridement measurement was sanguinous crust. Postdebridement measurement is 0.7 x 0.8 x 0.1 cm. Musculoskeletal: No pain to palpation to the left lateral ankle full-thickness wound. No pain with calf pressure. Debridement Note Debridement Note Debridement Free Text: Excisional debridement down to including subcutaneous tissue with a number 3 mm dermal curette to left lateral ankle full-thickness wound without incident. Predebridement measurement was 0.5 x 0.3 x 0.1 cm. Postdebridement measurement is 0.6 x 0.4 x 0.2 cm. Excisional debridement down to including subcutaneous tissue with a number 3 mm dermal curette to the left fourth digit full-thickness wound without incident. Predebridement measurement was sanguinous crust. Postdebridement measurement is 0.7 x 0.8 x 0.1 cm. Post-Debridement Measurements and Additional Note: Post-Debridement Measurements/Treatment - Nurse 1 - General Ulcer Assessment Start: 01/04/25 08:18 Freq: Status: Active Protocol: WC.LOWEXT Activity Type Activity Date Activity User E-sign Co-sign Detail Recorded Client Recorded Date Recorded By Document 01/04/25 08:18 KW [id number] 01/04/25 08:26 KW Document 01/18/25 13:19 DL [id number] 01/18/25 13:25 DL Document 01/25/25 08:29 KW [id number] 01/25/25 08:35 KW 01/04/25 01/18/25 01/25/25 08:18 13:19 08:29 - Today's Visit Information Type of service Follow-up Visit Follow-up Visit Follow-up Visit (Physician/TIRE CLASSIFIER (Physician/TIRE CLASSIFIER (Physician/TIRE CLASSIFIER ) ) ) Arrival Mode Ambulatory Ambulatory Ambulatory Transfer Assistance None Accompanied by Patient Identification Verified (Name & Yes Yes Yes ) Patient Requires Transmission-Based No Precautions Vital Signs Temperature (97.8 F-99.1 F) 97.3 F L 98.2 F 97.2 F L Temperature Source Temporal Temporal Temporal Pulse Rate (60-100) 86 89 86 Pulse Location Monitor Monitor Monitor Respiratory Rate (12-18) 18 18 18 Respiratory rate source Observation Monitor Observation Oxygen Delivery Method Room Air Room Air Blood Pressure (90/60-120/80) 134/82 H 127/74 H 134/79 H Blood Pressure Mean (mm Hg) 99 91 97 Source Monitor Monitor Monitor Position Semi-Fowlers Semi-Fowlers Blood Pressure Location Right Arm Left Arm History Since Last Visit- (Skip if this is Patient's initial visit) Have you changed medications since your No No No last visit? Any new allergies or adverse reactions No No No Had a fall/change in ADL's that may No No No increase risk of falls Signs or symptoms of abuse and/or No No No neglect since last visit Have you been in the hospital since your No No No last visit? Has dressing in place as prescribed Yes Yes Yes Has compression in place as prescribed Yes Yes No Has offloadiing in place as prescribed N/A N/A N/A Experienced any changes in pain level or No No No management Left Footwear Regular Shoe Regular Shoe Right Footwear Regular Shoe Regular Shoe Pain Scale: 0-10 Numeric Is Patient Pain Free? Yes Yes Yes WC - Nurse 1 - General Ulcer Measurement Start: 01/04/25 08:18 Freq: Status: Active Protocol: Activity Type Activity Date Activity User E-sign Co-sign Detail Recorded Client Recorded Date Recorded By Document 01/04/25 08:18 KW [id number] 01/04/25 08:26 KW Document 01/18/25 13:19 DL [id number] 01/18/25 13:25 DL Document 01/25/25 08:29 KW [id number] 01/25/25 08:35 KW 01/04/25 01/18/25 01/25/25 08:18 13:19 08:29 Wound Center Nurse 1 #7 LT LAT ANKLE -Current Size (cm) - Length 0.7 0.7 0.6 -Current Size (cm) - Width 0.3 0.5 0.5 -Current Size (cm) - Depth 0.3 0.5 0.3 -Total Square Cm 0.21 0.35 0.30 -Date of Last Picture (Recall this 01/04/25 01/25/25 field) -Exudate Amt Medium Small Medium -Exudate Type Serosanguineous Sanguineous Serosanguineous -Wound Margin Thickened Distinct, Thickened Outline Attached -Granulation Amt Small (1-33%) None Present (0 Small (1-33%) %) -Granulation Quality [place] Pale,[place] -Necrosis Amt Large (67-100%) Small (1-33%) Large (67-100%) -Necrotic Tissue Type Adherent Slough Adherent Slough Adherent Slough -Structure Exposed N/A -Texture ([place]-wound Skin Appearance) Assessed, Scarring Assessed Localized Edema -Moisture ([place]-wound Skin Appearance) Assessed Maceration Assessed -Color ([place]-wound Skin Appearance) Assessed, Erythema Assessed Erythema -Temperature ([place]-wound Skin No Abnormality No Abnormality No Abnormality Appearance) (Pt Warm) (Pt Warm) (Pt Warm) -Tenderness on Palpation ([place]-wound No No No Skin Appearance) -Ulcer Cleansing Soap and Water Rinsed/ Soap and Water Irrigated with Saline -Foul Odor after Cleansing No No No -Anesthetic Used 5% Lidocaine 5% Lidocaine 5% Lidocaine Gel Gel Gel Left Calf (cm) 38 Left Ankle (cm) 24.3 38 Left Foot (cm) 24.7 WC - Nurse 2 - General Ulcer CM Notes Start: 01/04/25 08:18 Freq: Status: Active Protocol: Activity Type Activity Date Activity User E-sign Co-sign Detail Recorded Client Recorded Date Recorded By Document 01/04/25 08:34 [id number] 01/04/25 08:36 JF Document 01/18/25 13:36 [id number] 01/18/25 13:39 Document 01/25/25 09:04 [id number] 01/25/25 09:12 01/04/25 01/18/25 01/25/25 08:34 13:36 09:04 Wound Center Nurse 2 8-left 4th toe -Time 09:05 -Correct Patient Yes -Correct Side, Site, Position Yes -Correct Procedure Yes -Procedure Performed Yes -Type of Procedure Debridement -Clinical Debridement Subcutaneous -Tissue Removed Subcutaneous -Post Debridement (cm) - Length 0.7 -Post Debridement (cm) - Width 0.8 -Post Debridement (cm) - Depth 0.1 -Total Square (Post) (cm) 0.56 -Area of Debridement (cm) - Length 0.7 -Area of Debridement (cm) - Width 0.8 -Total Square (Area) (cm) 0.56 -Tunneling No -Undermining/Tunneling No -Circular Undermining No -Wound/Ulcer Outcome Not Healed -Ulcer Cleansing Rinsed/ Irrigated with Saline -Foul Odor after Cleansing No -Bioengineered Tissue No -Bleeding Controlled with Pressure -Treatment Response Procedure Tolerated Well -Offloading Yes -Type of Offloading Surgical Shoe -Debridement - Subq, 1st 20sq cm No #7 LT LAT ANKLE -Time 08:35 13:36 09:04 -Correct Patient Yes Yes Yes -Correct Side, Site, Position Yes Yes Yes -Correct Procedure Yes Yes Yes -Procedure Performed Yes Yes Yes -Type of Procedure Debridement Debridement Debridement -Clinical Debridement Subcutaneous Subcutaneous Subcutaneous -Tissue Removed Subcutaneous Subcutaneous Subcutaneous -Post Debridement (cm) - Length 0.6 0.7 0.6 -Post Debridement (cm) - Width 0.4 0.6 0.4 -Post Debridement (cm) - Depth 0.2 0.3 0.2 -Total Square (Post) (cm) 0.24 0.42 0.24 -Area of Debridement (cm) - Length 0.6 0.7 0.6 -Area of Debridement (cm) - Width 0.4 0.6 0.4 -Total Square (Area) (cm) 0.24 0.42 0.24 -Tunneling No No No -Undermining/Tunneling No No No -Circular Undermining No No No -Wound/Ulcer Outcome Not Healed Not Healed Not Healed -Ulcer Cleansing Rinsed/ Rinsed/ Rinsed/ Irrigated with Irrigated with Irrigated with Saline Saline Saline -Foul Odor after Cleansing No No No -Bioengineered Tissue No No No -Bleeding Controlled with Pressure Pressure Pressure -Treatment Response Procedure Procedure Procedure Tolerated Well Tolerated Well Tolerated Well -Offloading No No Yes -Type of Offloading Surgical Shoe -Debridement - Subq, 1st 20sq cm Yes Yes Yes Pain Scale: 0-10 Numeric Is Patient Pain Free? Yes Yes Yes WC - Nurse 3 - General Ulcer D/C NN Start: 01/04/25 08:18 Freq: Status: Active Protocol: Activity Type Activity Date Activity User E-sign Co-sign Detail Recorded Client Recorded Date Recorded By Document 01/04/25 08:42 KW [id number] 01/04/25 08:43 KW Document 01/18/25 13:55 DL [id number] 01/18/25 13:57 DL Document 01/25/25 09:27 KW [id number] 01/25/25 09:28 KW 01/04/25 01/18/25 01/25/25 08:42 13:55 09:27 Wound Care Center Nurse 3 8-left 4th toe -Other Dressing betadine painted -Primary Dressing Covered/Secured with Dry Gauze, Secured with Tape #7 LT LAT ANKLE -Ulcer Cleansing Rinsed/ Irrigated with Saline -Primary Dressing Applied AMD Dressing AMD Dressing 4x4,Silicone 4x4,Silicone Border Foam 4x4 Border Foam 4x4 -Other Dressing pt own AMD pad -Primary Dressing Covered/Secured with Dry Gauze & Roll Gauze, Secured with Tape -AMD Dressing 4x4 1 1 -Silicone Border Foam 4x4 1 1 -Silicone Border Foam 6x6 0 LLE -Multi-Layered Wrap Application Multi-Layer Comp - Left ($) -Tubular Bandage Single Layer Double Layer -Size of Tubigrip Used Size D Size E -Size D ($) 1 -Size E ($) 2 -Multi-Layer Compression Left (Qty 1 applied) RLE -Lotion applied to leg before No compression wrap Treatment Response Procedure Tolerated Well Pain Scale: 0-10 Numeric Is Patient Pain Free? Yes Yes Yes WC - Visit Discharge Discharge Condition Stable Stable Stable Ambulatory Status Ambulatory Ambulatory Ambulatory Transportation Private Auto Private Auto Private Auto Medication Reconcilliation completed & No No provided to patient/care provider Clinical Summary of Care Provided Yes Yes Notes: offload with surgical shoe Assessment/Plan Assessment/Plan (1) Non-pressure chronic ulcer of left ankle with fat layer exposed: CODE(S): L97.322 - Non-pressure chronic ulcer of left ankle with fat layer exposed PLAN: Patient was examined and evaluated. All findings were discussed with the patient. All questions were answered to the patient's satisfaction. Excisional debridement down to including subcutaneous tissue with a number 3 mm dermal curette to left lateral ankle full-thickness wound without incident. Predebridement measurement was 0.5 x 0.3 x 0.1 cm. Postdebridement measurement is 0.6 x 0.4 x 0.2 cm. Excisional debridement down to including subcutaneous tissue with a number 3 mm dermal curette to the left fourth digit full-thickness wound without incident. Predebridement measurement was sanguinous crust. Postdebridement measurement is 0.7 x 0.8 x 0.1 cm. The left lateral ankle was wiped clean and patted dry. Hydrogel followed by AMD pad was applied to the dressing with double layer Tubigrip and surgical shoe. The left fourth digit was dressed with Betadine paint and Band-Aid. Patient will continue daily dressing changes as discussed. Culture was taken of the left fourth digit and antibiotics will be provided as needed once cultures and sensitivities returned. Patient educated to continue strict blood sugar control. He was educated on signs symptoms of infection. Follow-up at the wound care center with Dr. Hyatt in 1 week. (2) Non-pressure chronic ulcer of other part of left foot with fat layer exposed: CODE(S): L97.522 - Non-pressure chronic ulcer of other part of left foot with fat layer exposed
--- NOTE | 2025-01-26 08:23 | WC ---
PHOTO-LEFT LATERAL ANKLE 01/25/25
[2025-02-01 08:45] VITALS: BP 131/85; PULSE 86; RESP 14; TEMP 36.1
--- NOTE | 2025-02-01 10:39 | RAD_ITS ---
PROCEDURE: FOOT MIN 3 VIEWS 02/01/2025 REASON FOR EXAM: ULCER TECHNIQUE: FOOT MIN 3 VIEWS COMPARISON: None FINDINGS: Bones: No visible fracture. No suspicious bone lesion. Joints: Normal alignment. Soft tissues: Focal ulceration seen overlying the distal fibula. Other: RAD/Foot min 3 Views IMPRESSION: Ulceration overlying the distal fibula. No bony abnormality is seen at this time. Reading Location: [facility]
--- NOTE | 2025-02-01 10:39 | RAD_ITS ---
PROCEDURE: ANKLE MIN 3 VIEWS 02/01/2025 REASON FOR EXAM: ULCER TECHNIQUE: ANKLE MIN 3 VIEWS COMPARISON: None FINDINGS: Bones: Unremarkable Joints: Normal alignment. Mortise appears intact. No effusion. Soft tissues: Soft tissue swelling overlying the lateral malleolus with small ulceration. Other: RAD/Ankle min 3 Views IMPRESSION: Soft tissue swelling and ulceration overlying the lateral malleolus. No bony abnormality is seen. Reading Location: [facility]
--- NOTE | 2025-02-01 11:12 | PN.PCM_ITS ---
History of Present Illness Date of Service: 02/01/25 Chief Complaint: non healing ulcer of left lateral malleolus/ankle History of Wound: eB is a 67-year-old white male with type 2 diabetes and a history of poor healing wounds that presents to the wound center today for evaluation and treatment of a nonhealing ulcer of his left lateral ankle/malleolus that started approximately 4 weeks ago. He thinks that his boot was rubbing the area and then noticed that there was drainage and was treating with a bandaid and antibiotic ointment with no improvement and increased drainage and erythema and swelling and then was seen by his PCP who started him on doxycyline and there was still no improvement so he gave him 1 dose of IM Rocephin and then started him on Cephalexin and Bactrim for which he has been taking almost 10 days of treatment and has 5 more days left of medication. He was then referred to the wound center for treatment. He has been covering the wound with gauze and antibiotic ointment but leaving it open to air when he is at home. He appears to have Charcot of the right foot and a collapsed right arch. He has had vascular testing by Dr. 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 His last A1C is unknown. He denies fever, chills, increased erythema or drainage and has been taking his antibiotics as instructed. Wound culture 01/09/23 was positive for anaerobic bacteria, Pseudomonas, Enterococcus and Klebsiella. He was started on Augmentin and Ciprofloxacin and completed treatment. He had vascular testing and venous insufficiency not identified. ABIs were WNL and not changed from previous. He had CTA with runoff scheduled on 01/21/23 which showed some areas of stenosis in left leg but there was blood flow to dorsalis pedis artery. He had consultation with vascular surgery on 02/02/[address] Gibson prefers to defer any surgical intervention for now as he does not think there is significant arterial disease in his left leg contributing to his difficulty healing. Progress of Wound: Slow healing wound lateral left ankle. Evidence of new wound to the left fourth digit and left great toe. Subjective Subjective Patient is a 69-year-old diabetic male presenting with care center today follow- up evaluation of left lower extremity lateral ankle full-thickness wound, left fourth digit wound and new wound to the left great toe. Patient has been doing dressing changes as discussed. He and admits to a new wound and is unsure how it happened to the left great toe. He has started oral antibiotics doxycycline and levofloxacin that he had extra at home from his infectious disease doctor from [facility]. Patient does not check his blood sugar on a regular basis and when he do checks his blood sugar he admits to using strips. He admits that his blood sugar has been 185 mg/dL when he last checked it today in clinic it was 186 mg/dL. He does admit to burning and tingling as well as neuropathy to the bilateral lower extremity. Patient denies any trauma or rubbing in shoe gear. Denies constitutional symptoms. No other pedal complaints at this time. Objective Data Objective Data Vital Signs: Vital Signs Temp Pulse Resp BP O2 Del Method 97.0 F L 86 14 131/85 H Room Air 02/01/25 08:45 02/01/25 08:45 02/01/25 08:45 02/01/25 08:45 01/25/25 08:29 Oxygen Delivery Method Room Air Lab / Micro Data Labs: Laboratory Results - last 24 hr 02/01/25 09:09: POC Glucose 186 H Micro: Microbiology 01/25/25 09:07 Ulcer, Decubitus - Toe Gram Stain - Final 01/25/25 09:07 Ulcer, Decubitus - Toe Wound Culture - Final Staphylococcus xylosus Staphylococcus lugdunensis Staphylococcus epidermidis Staphylococcus haemolyticus 01/25/25 09:07 Ulcer, Decubitus - Toe Anaerobic Culture - Final No anaerobic bacteria isolated. Physical Exam Narrative Vascular: DP and PT pulse are palpable bilateral. CFT is brisk. Blanchable erythema to the left lateral ankle with blanchable erythema appreciated to the left fourth digit. Skin temperature gradient is warm to warm from proximal ankles to distal digit with focal increase appreciated to the left fourth digit. Neurological: Light touch intact. Protective station is diminished to the forefoot but reestablished at the midfoot and ankle. Patient does respond to painful stimuli. Dermatological: Full-thickness wound appreciated to the left lateral ankle measuring 1.3 x 0.7 x 0.3 cm. Negative probe to bone. Wound base is fibrogranular nature. Blanchable erythema appreciated to the periwound. Evidence of eschar appreciated to the distal lateral aspect of the left fourth digit measuring 0.7 x 0.8 x 0.1 cm. Blanchable erythema with increased warmth appreciated to the left fourth digit. Evidence of full-thickness wound to the left hallux measuring 0.7 x 0.8 x 0.1 cm. Wound base is fibrogranular nature. Evidence of periwound erythema. Excisional debridement down to including subcutaneous tissue of the left hallux full-thickness wound done with a number 3 mm dermal curette without incident. Predebridement measurement was 0.5 x 0.5 x 0.1 cm. Postdebridement measurement is 0.7 x 0.8 x 0.1 cm. Excisional debridement down to including subcutaneous tissue of the left lateral ankle full-thickness wound done without incident using a number 3 mm dermal curette. Predebridement measurement was 1.1 x 0.6 x 0.2 cm. Postdebridement measurement is 1.3 x 0.7 x 0.3 cm. Musculoskeletal: Mild pain to palpation to the full-thickness wound to the lateral left ankle. No pain to palpation to the left fourth digit and great toe. No pain with calf pressure. Debridement Note Debridement Note Debridement Free Text: Excisional debridement down to including subcutaneous tissue of the left hallux full-thickness wound done with a number 3 mm dermal curette without incident. Predebridement measurement was 0.5 x 0.5 x 0.1 cm. Postdebridement measurement is 0.7 x 0.8 x 0.1 cm. Excisional debridement down to including subcutaneous tissue of the left lateral ankle full-thickness wound done without incident using a number 3 mm dermal curette. Predebridement measurement was 1.1 x 0.6 x 0.2 cm. Postdebridement measurement is 1.3 x 0.7 x 0.3 cm. Post-Debridement Measurements and Additional Note: Post-Debridement Measurements/Treatment WC - Nurse 1 - General Ulcer Assessment Start: 01/04/25 08:18 Freq: Status: Active Protocol: AIXA Activity Type Activity Date Activity User E-sign Co-sign Detail Recorded Client Recorded Date Recorded By Document 01/04/25 08:18 KW [id number] 01/04/25 08:26 KW Document 01/18/25 13:19 DL [id number] 01/18/25 13:25 DL Document 07/23/25 08:29 KW [id number] 01/25/25 08:35 KW Document 02/01/25 08:45 ML [id number] 02/01/25 08:49 ML 01/04/25 01/18/25 01/25/25 08:18 13:19 08:29 - Today's Visit Information Type of service Follow-up Visit Follow-up Visit Follow-up Visit (Physician/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 (Physician/ALUMINUM BOAT 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 (Physician/ALUMINUM BOAT 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 ) ) ) Arrival Mode Ambulatory Ambulatory Ambulatory Transfer Assistance None Accompanied by Patient Identification Verified (Name & Yes Yes Yes ) Patient Requires Transmission-Based No Precautions Vital Signs Temperature (97.8 F-99.1 F) 97.3 F L 98.2 F 97.2 F L Temperature Source Temporal Temporal Temporal Pulse Rate (60-100) 86 89 86 Pulse Location Monitor Monitor Monitor Respiratory Rate (12-18) 18 18 18 Respiratory rate source Observation Monitor Observation Oxygen Delivery Method Room Air Room Air Blood Pressure (90/60-120/80) 134/82 H 127/74 H 134/79 H Blood Pressure Mean (mm Hg) 99 91 97 Source Monitor Monitor Monitor Position Semi-Fowlers Semi-Fowlers Blood Pressure Location Right Arm Left Arm History Since Last Visit- (Skip if this is Patient's initial visit) Have you changed medications since your No No No last visit? Any new allergies or adverse reactions No No No Had a fall/change in ADL's that may No No No increase risk of falls Signs or symptoms of abuse and/or No No No neglect since last visit Have you been in the hospital since your No No No last visit? Has dressing in place as prescribed Yes Yes Yes Has compression in place as prescribed Yes Yes No Has offloadiing in place as prescribed N/A N/A N/A Experienced any changes in pain level or No No No management Left Footwear Regular Shoe Regular Shoe Right Footwear Regular Shoe Regular Shoe Pain Scale: 0-10 Numeric Is Patient Pain Free? Yes Yes Yes 02/01/25 08:45 - Today's Visit Information Type of service Follow-up Visit (Physician/ALUMINUM BOAT 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 ) Arrival Mode Ambulatory Transfer Assistance None Accompanied by Patient Identification Verified (Name & Yes ) Patient Requires Transmission-Based No Precautions Vital Signs Temperature (97.8 F-99.1 F) 97.0 F L Temperature Source Temporal Pulse Rate (60-100) 86 Pulse Location Monitor Respiratory Rate (12-18) 14 Respiratory rate source Observation Oxygen Delivery Method Blood Pressure (90/60-120/80) 131/85 H Blood Pressure Mean (mm Hg) 100 Source Monitor Position Sitting Blood Pressure Location Left Arm History Since Last Visit- (Skip if this is Patient's initial visit) Have you changed medications since your No last visit? Any new allergies or adverse reactions No Had a fall/change in ADL's that may No increase risk of falls Signs or symptoms of abuse and/or No neglect since last visit Have you been in the hospital since your No last visit? Has dressing in place as prescribed Yes Has compression in place as prescribed Yes Has offloadiing in place as prescribed No Experienced any changes in pain level or No management Left Footwear Right Footwear Pain Scale: 0-10 Numeric Is Patient Pain Free? Yes WC - Nurse 1 - General Ulcer Measurement Start: 01/04/25 08:18 Freq: Status: Active Protocol: Activity Type Activity Date Activity User E-sign Co-sign Detail Recorded Client Recorded Date Recorded By Document 01/04/25 08:18 KW [id number] 01/04/25 08:26 KW Document 01/18/25 13:19 DL [id number] 01/18/25 13:25 DL Document 01/25/25 08:29 KW [id number] 01/25/25 08:35 KW Document 02/01/25 08:45 ML [id number] 02/01/25 08:49 ML 01/04/25 01/18/25 01/25/25 08:18 13:19 08:29 Wound Center Nurse 1 #9 left great toe -Current Size (cm) - Length -Current Size (cm) - Width -Current Size (cm) - Depth -Total Square Cm -Exudate Amt -Exudate Type -Granulation Amt -Necrosis Amt -Necrotic Tissue Type -Texture (Gricelda-wound Skin Appearance) -Moisture (Gricelda-wound Skin Appearance) -Color (Gricelda-wound Skin Appearance) -Temperature (Gricelda-wound Skin Appearance) -Tenderness on Palpation (Gricelda-wound Skin Appearance) -Ulcer Cleansing -Foul Odor after Cleansing -Anesthetic Used 8-left 4th toe -Current Size (cm) - Length -Current Size (cm) - Width -Current Size (cm) - Depth -Total Square Cm -Exudate Amt -Exudate Type -Granulation Amt -Slough/Fibrin -Necrosis Amt -Necrotic Tissue Type -Texture (Gricelda-wound Skin Appearance) -Moisture (Gricelda-wound Skin Appearance) -Color (Gricelda-wound Skin Appearance) -Temperature (Gricelda-wound Skin Appearance) -Tenderness on Palpation (Gricelda-wound Skin Appearance) -Ulcer Cleansing -Foul Odor after Cleansing -Anesthetic Used #7 LT LAT ANKLE -Current Size (cm) - Length 0.7 0.7 0.6 -Current Size (cm) - Width 0.3 0.5 0.5 -Current Size (cm) - Depth 0.3 0.5 0.3 -Total Square Cm 0.21 0.35 0.30 -Date of Last Picture (Recall this 01/04/25 01/25/25 field) -Exudate Amt Medium Small Medium -Exudate Type Serosanguineous Sanguineous Serosanguineous -Wound Margin Thickened Distinct, Thickened Outline Attached -Granulation Amt Small (1-33%) None Present (0 Small (1-33%) %) -Granulation Quality [place] Pale,[place] -Slough/Fibrin -Necrosis Amt Large (67-100%) Small (1-33%) Large (67-100%) -Necrotic Tissue Type Adherent Slough Adherent Slough Adherent Slough -Structure Exposed N/A -Texture (Gricelda-wound Skin Appearance) Assessed, Scarring Assessed Localized Edema -Moisture (Gricelda-wound Skin Appearance) Assessed Maceration Assessed -Color (Gricelda-wound Skin Appearance) Assessed, Erythema Assessed Erythema -Temperature (Gricelda-wound Skin No Abnormality No Abnormality No Abnormality Appearance) (Pt Warm) (Pt Warm) (Pt Warm) -Tenderness on Palpation (Gricelda-wound No No No Skin Appearance) -Ulcer Cleansing Soap and Water Rinsed/ Soap and Water Irrigated with Saline -Foul Odor after Cleansing No No No -Anesthetic Used 5% Lidocaine 5% Lidocaine 5% Lidocaine Gel Gel Gel Left Calf (cm) 38 Left Ankle (cm) 24.3 38 Left Foot (cm) 24.7 02/01/25 08:45 Wound Center Nurse 1 #9 left great toe -Current Size (cm) - Length 1 -Current Size (cm) - Width 1 -Current Size (cm) - Depth 0.1 -Total Square Cm 1 -Exudate Amt Small -Exudate Type Serosanguineous -Granulation Amt Small (1-33%) -Necrosis Amt Small (1-33%) -Necrotic Tissue Type Adherent Slough -Texture (Gricelda-wound Skin Appearance) Assessed -Moisture (Gricelda-wound Skin Appearance) Assessed -Color (Gricelda-wound Skin Appearance) Assessed -Temperature (Gricelda-wound Skin No Abnormality Appearance) (Pt Warm) -Tenderness on Palpation (Gricelda-wound No Skin Appearance) -Ulcer Cleansing Soap and Water -Foul Odor after Cleansing No -Anesthetic Used 5% Lidocaine Gel 8-left 4th toe -Current Size (cm) - Length 1 -Current Size (cm) - Width 1 -Current Size (cm) - Depth 0.1 -Total Square Cm 1 -Exudate Amt Small -Exudate Type Serosanguineous -Granulation Amt Small (1-33%) -Slough/Fibrin Yes -Necrosis Amt Small (1-33%) -Necrotic Tissue Type Adherent Slough -Texture (Gricelda-wound Skin Appearance) Assessed -Moisture (Gricelda-wound Skin Appearance) Assessed -Color (Gricelda-wound Skin Appearance) Assessed -Temperature (Gricelda-wound Skin No Abnormality Appearance) (Pt Warm) -Tenderness on Palpation (Gricelda-wound No Skin Appearance) -Ulcer Cleansing Soap and Water -Foul Odor after Cleansing No -Anesthetic Used 5% Lidocaine Gel #7 LT LAT ANKLE -Current Size (cm) - Length 1.5 -Current Size (cm) - Width 1 -Current Size (cm) - Depth 0.3 -Total Square Cm 1.5 -Date of Last Picture (Recall this field) -Exudate Amt Medium -Exudate Type Serosanguineous -Wound Margin Distinct, Outline Attached -Granulation Amt Medium (34-66%) -Granulation Quality -Slough/Fibrin Yes -Necrosis Amt Small (1-33%) -Necrotic Tissue Type Adherent Slough -Structure Exposed -Texture (Gricelda-wound Skin Appearance) Assessed -Moisture (Gricelda-wound Skin Appearance) Assessed -Color (Gricelda-wound Skin Appearance) Assessed -Temperature (Gricelda-wound Skin No Abnormality Appearance) (Pt Warm) -Tenderness on Palpation (Gricelda-wound No Skin Appearance) -Ulcer Cleansing Soap and Water -Foul Odor after Cleansing No -Anesthetic Used 5% Lidocaine Gel Left Calf (cm) Left Ankle (cm) Left Foot (cm) WC - Nurse 2 - General Ulcer CM Notes Start: 01/04/25 08:18 Freq: Status: Active Protocol: Activity Type Activity Date Activity User E-sign Co-sign Detail Recorded Client Recorded Date Recorded By Document 01/04/25 08:34 [id number] 01/04/25 08:36 JF Document 01/18/25 13:36 JF [id number] 01/18/25 13:39 JF Document 01/25/25 09:04 JF [id number] 01/25/25 09:12 JF Document 02/01/25 08:57 [id number] 02/01/25 09:09 JF 01/04/25 01/18/25 01/25/25 08:34 13:36 09:04 Wound Center Nurse 2 #9 left great toe -Time -Correct Patient -Correct Side, Site, Position -Correct Procedure -Procedure Performed -Type of Procedure -Clinical Debridement -Tissue Removed -Post Debridement (cm) - Length -Post Debridement (cm) - Width -Post Debridement (cm) - Depth -Total Square (Post) (cm) -Area of Debridement (cm) - Length -Area of Debridement (cm) - Width -Total Square (Area) (cm) -Tunneling -Undermining/Tunneling -Circular Undermining -Wound/Ulcer Outcome -Ulcer Cleansing -Foul Odor after Cleansing -Bioengineered Tissue -Bleeding Controlled with -Treatment Response -Offloading -Type of Offloading -Debridement - Subq, 1st 20sq cm 8-left 4th toe -Time 09:05 -Correct Patient Yes -Correct Side, Site, Position Yes -Correct Procedure Yes -Procedure Performed Yes -Type of Procedure Debridement -Clinical Debridement Subcutaneous -Tissue Removed Subcutaneous -Post Debridement (cm) - Length 0.7 -Post Debridement (cm) - Width 0.8 -Post Debridement (cm) - Depth 0.1 -Total Square (Post) (cm) 0.56 -Area of Debridement (cm) - Length 0.7 -Area of Debridement (cm) - Width 0.8 -Total Square (Area) (cm) 0.56 -Tunneling No -Undermining/Tunneling No -Circular Undermining No -Wound/Ulcer Outcome Not Healed -Ulcer Cleansing Rinsed/ Irrigated with Saline -Foul Odor after Cleansing No -Bioengineered Tissue No -Bleeding Controlled with Pressure -Treatment Response Procedure Tolerated Well -Offloading Yes -Type of Offloading Surgical Shoe -Debridement - Subq, 1st 20sq cm No #7 LT LAT ANKLE -Time 08:35 13:36 09:04 -Correct Patient Yes Yes Yes -Correct Side, Site, Position Yes Yes Yes -Correct Procedure Yes Yes Yes -Procedure Performed Yes Yes Yes -Type of Procedure Debridement Debridement Debridement -Clinical Debridement Subcutaneous Subcutaneous Subcutaneous -Tissue Removed Subcutaneous Subcutaneous Subcutaneous -Post Debridement (cm) - Length 0.6 0.7 0.6 -Post Debridement (cm) - Width 0.4 0.6 0.4 -Post Debridement (cm) - Depth 0.2 0.3 0.2 -Total Square (Post) (cm) 0.24 0.42 0.24 -Area of Debridement (cm) - Length 0.6 0.7 0.6 -Area of Debridement (cm) - Width 0.4 0.6 0.4 -Total Square (Area) (cm) 0.24 0.42 0.24 -Tunneling No No No -Undermining/Tunneling No No No -Circular Undermining No No No -Wound/Ulcer Outcome Not Healed Not Healed Not Healed -Ulcer Cleansing Rinsed/ Rinsed/ Rinsed/ Irrigated with Irrigated with Irrigated with Saline Saline Saline -Foul Odor after Cleansing No No No -Bioengineered Tissue No No No -Bleeding Controlled with Pressure Pressure Pressure -Treatment Response Procedure Procedure Procedure Tolerated Well Tolerated Well Tolerated Well -Offloading No No Yes -Type of Offloading Surgical Shoe -Debridement - Subq, 1st 20sq cm Yes Yes Yes Pain Scale: 0-10 Numeric Is Patient Pain Free? Yes Yes Yes 02/01/25 08:57 Wound Center Nurse 2 #9 left great toe -Time 09:03 -Correct Patient Yes -Correct Side, Site, Position Yes -Correct Procedure Yes -Procedure Performed Yes -Type of Procedure Debridement -Clinical Debridement Subcutaneous -Tissue Removed Subcutaneous -Post Debridement (cm) - Length 0.7 -Post Debridement (cm) - Width 0.8 -Post Debridement (cm) - Depth 0.1 -Total Square (Post) (cm) 0.56 -Area of Debridement (cm) - Length 0.7 -Area of Debridement (cm) - Width 0.8 -Total Square (Area) (cm) 0.56 -Tunneling No -Undermining/Tunneling No -Circular Undermining No -Wound/Ulcer Outcome Not Healed -Ulcer Cleansing Rinsed/ Irrigated with Saline -Foul Odor after Cleansing No -Bioengineered Tissue No -Bleeding Controlled with Pressure -Treatment Response Procedure Tolerated Well -Offloading Yes -Type of Offloading Surgical Shoe -Debridement - Subq, 1st 20sq cm No 8-left 4th toe -Time 08:59 -Correct Patient Yes -Correct Side, Site, Position Yes -Correct Procedure Yes -Procedure Performed Yes -Type of Procedure Debridement -Clinical Debridement Subcutaneous -Tissue Removed Subcutaneous -Post Debridement (cm) - Length 0.7 -Post Debridement (cm) - Width 0.8 -Post Debridement (cm) - Depth 0.1 -Total Square (Post) (cm) 0.56 -Area of Debridement (cm) - Length 0.7 -Area of Debridement (cm) - Width 0.8 -Total Square (Area) (cm) 0.56 -Tunneling No -Undermining/Tunneling No -Circular Undermining No -Wound/Ulcer Outcome Not Healed -Ulcer Cleansing Rinsed/ Irrigated with Saline -Foul Odor after Cleansing No -Bioengineered Tissue No -Bleeding Controlled with Pressure -Treatment Response Procedure Tolerated Well -Offloading Yes -Type of Offloading Surgical Shoe -Debridement - Subq, 20sq cm Yes #7 LT LAT ANKLE -Time 08:59 -Correct Patient Yes -Correct Side, Site, Position Yes -Correct Procedure Yes -Procedure Performed Yes -Type of Procedure Debridement -Clinical Debridement Subcutaneous -Tissue Removed Subcutaneous -Post Debridement (cm) - Length 1.3 -Post Debridement (cm) - Width 0.7 -Post Debridement (cm) - Depth 0.4 -Total Square (Post) (cm) 0.91 -Area of Debridement (cm) - Length 1.3 -Area of Debridement (cm) - Width 0.7 -Total Square (Area) (cm) 0.91 -Tunneling No -Undermining/Tunneling No -Circular Undermining No -Wound/Ulcer Outcome Not Healed -Ulcer Cleansing Rinsed/ Irrigated with Saline -Foul Odor after Cleansing No -Bioengineered Tissue No -Bleeding Controlled with Pressure -Treatment Response Procedure Tolerated Well -Offloading Yes -Type of Offloading Surgical Shoe -Debridement - Subq, 1st 20sq cm No Pain Scale: 0-10 Numeric Is Patient Pain Free? Yes WC - Nurse 3 - General Ulcer D/C NN Start: 01/04/25 08:18 Freq: Status: Active Protocol: Activity Type Activity Date Activity User E-sign Co-sign Detail Recorded Client Recorded Date Recorded By Document 01/04/25 08:42 KW [id number] 01/04/25 08:43 KW Document 01/18/25 13:55 DL [id number] 01/18/25 13:57 DL Document 01/25/25 09:27 KW [id number] 01/25/25 09:28 KW Document 02/01/25 09:32 KW [id number] 02/01/25 09:33 KW 01/04/25 01/18/25 01/25/25 08:42 13:55 09:27 Wound Care Center Nurse 3 #9 left great toe -Other Dressing -Primary Dressing Covered/Secured with 8-left 4th toe -Other Dressing betadine painted -Primary Dressing Covered/Secured with Dry Gauze, Secured with Tape #7 LT LAT ANKLE -Ulcer Cleansing Rinsed/ Irrigated with Saline -Primary Dressing Applied AMD Dressing AMD Dressing 4x4,Silicone 4x4,Silicone Border Foam 4x4 Border Foam 4x4 -Other Dressing pt own AMD pad -Primary Dressing Covered/Secured with Dry Gauze & Roll Gauze, Secured with Tape -AMD Dressing 4x4 1 1 -Silicone Border Foam 4x4 1 1 -Silicone Border Foam 6x6 0 LLE -Multi-Layered Wrap Application Multi-Layer Comp - Left ($) -Tubular Bandage Single Layer Double Layer -Size of Tubigrip Used Size D Size E -Size D ($) 1 -Size E ($) 2 -Multi-Layer Compression Left (Qty 1 applied) RLE -Lotion applied to leg before No compression wrap Treatment Response Procedure Tolerated Well Pain Scale: 0-10 Numeric Is Patient Pain Free? Yes Yes Yes WC - Visit Discharge Discharge Condition Stable Stable Stable Ambulatory Status Ambulatory Ambulatory Ambulatory Transportation Private Auto Private Auto Private Auto Medication Reconcilliation completed & No No provided to patient/care provider Clinical Summary of Care Provided Yes Yes Notes: offload with surgical shoe 02/01/25 09:32 Wound Care Center Nurse 3 #9 left great toe -Other Dressing paint betadine -Primary Dressing Covered/Secured with Dry Gauze & Roll Gauze, Secured with Tape 8-left 4th toe -Other Dressing paint betadine -Primary Dressing Covered/Secured with Dry Gauze #7 LT LAT ANKLE -Ulcer Cleansing -Primary Dressing Applied -Other Dressing paint betadine -Primary Dressing Covered/Secured with Dry Gauze & Roll Gauze, Secured with Tape -AMD Dressing 4x4 -Silicone Border Foam 4x4 -Silicone Border Foam 6x6 LLE -Multi-Layered Wrap Application -Tubular Bandage Single Layer -Size of Tubigrip Used Size E -Size D ($) -Size E ($) 1 -Multi-Layer Compression Left (Qty applied) RLE -Lotion applied to leg before compression wrap Treatment Response Pain Scale: 0-10 Numeric Is Patient Pain Free? Yes WC - Visit Discharge Discharge Condition Stable Ambulatory Status Ambulatory Transportation Private Auto Medication Reconcilliation completed & No provided to patient/care provider Clinical Summary of Care Provided Yes Notes: Assessment/Plan Assessment/Plan (1) Osteomyelitis of ankle, left, acute: CODE(S): M86.172 - Other acute osteomyelitis, left ankle and foot PLAN: Patient was examined and evaluated. All findings were discussed with the patient. All questions were answered to the patient's satisfaction. Excisional debridement down to including subcutaneous tissue of the left hallux full-thickness wound done with a number 3 mm dermal curette without incident. Predebridement measurement was 0.5 x 0.5 x 0.1 cm. Postdebridement measurement is 0.7 x 0.8 x 0.1 cm. Excisional debridement down to including subcutaneous tissue of the left lateral ankle full-thickness wound done without incident using a number 3 mm dermal curette. Predebridement measurement was 1.1 x 0.6 x 0.2 cm. Postdebridement measurement is 1.3 x 0.7 x 0.3 cm. The left lower extremities are clean and patted dry. Betadine soaked gauze was applied to all full-thickness wounds left lower extremity. Followed by dry sterile dressing and single-layer Tubigrip. There was concerned that the compression wrap may have been too tight causing some buildup of fluid in the patient's lesser digits causing breakdown of skin. We will not be using so aggressive compression with this patient. Very long discussion with the patient and his regarding the importance of checking blood sugar at least 6 times per day especially before and after meals. The patient does show evidence of some denial regarding the importance of blood sugar management. But after discussion the patient is showing some understanding. It was discussed with the patient and reiterated that there is importance of controlling blood sugar between 100 to 150 mg/dL. Was also discussed with the patient that if he is over 200 throughout the day he delays his healing potential for up to 24 hours every time his blood sugar rises above 200 mg/dL. Patient stresses that his last A1c done in office with Dr. Osullivan was 6.1%. Patient was sent over a lab order for CBC, BMP, HbA1c, ESR and CRP to be done at the [facility] laboratory. Patient was also given an order for foot and ankle x-rays as well as an order for venous and arterial studies since his last study was in 2022. We is a group discussed the need for proper compliance as the patient may suffer from noncompliance and will need expert help such as an engine assembler to help regulate the patient's blood sugar more toward a normal level geared for his healing potential. I did offer the patient the option for a second opinion but they declined will continue to be on my services. 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 I reviewed the patient's radiograph do show evidence of increase in soft tissue volume and notable defect to the left fourth digit with no concern of osteomyelitis at this time. Review of the patient's ankle films that were taken today, 02/01/2025, there is concern for periosteal reaction at the level of the full-thickness wound at the level of the fibula. The patient was called to discuss the findings and I recommended when he has his surgery at [facility] in February I recommended a bone biopsy at that time. If the patient is regular podiatry is not comfortable doing so I will be happy to move forward with surgical planning for this patient. Follow-up at the wound care center with Dr. Hyatt in 1 week. (2) Non-pressure chronic ulcer of left ankle with fat layer exposed: CODE(S): L97.322 - Non-pressure chronic ulcer of left ankle with fat layer exposed (3) Non-pressure chronic ulcer of other part of left foot with fat layer exposed: CODE(S): L97.522 - Non-pressure chronic ulcer of other part of left foot with fat layer exposed (4) Medical non-compliance: CODE(S): Z91.199 - Patient's noncompliance with other medical treatment and regimen due to unspecified reason
--- NOTE | 2025-02-02 09:32 | WC ---
PHOTO-LEFT GREAT TOE 02/01/25
--- NOTE | 2025-02-02 09:45 | WC ---
PHOTO-LEFT 4TH TOE 02/01/25
--- NOTE | 2025-02-02 09:50 | WC ---
PHOTO-LEFT LATERAL ANKLE 02/01/25
[2025-02-02 16:48] LABS: Anion Gap 13 (5-15); BUN 23 mg/dL (4-19); BUN/Creat Ratio 20.6 RATIO (10-20); CRP 7.75 mg/L (0.0-3.0); Calcium,Total 10.8 mg/dL (7.6-11.0); Carbon Dioxide 23.0 mmol/L (21.0-32.0); Chloride 101 mmol/L (98-108); Glucose 136 mg/dL (70-99); Potassium 4.9 mmol/L (3.3-5.1)
[2025-02-02 18:03] LABS: Hematocrit 44.3 % (40-54); Hemoglobin 15.6 g/dL (13.0-16.5); Mean Corp Hgb Conc 35.2 g/dL (32-36); Mean Corpuscular Volume 125.5 fL (80-94); Mean Platelet Vol. 9.5 fl (6.2-12.0); Platelet Count 216 K/mm3 (150-450); RBC Distribution Width CV 11.7 % (11.6-14.6); RBC Distribution Width SD 55.0 fl (35.1-43.9); Red Blood Count 3.53 M/mm3 (4.6-6.2); White Blood Count 7.0 K/mm3 (4.4-11.0)
== END 2025-02-02 23:59 | disposition home or self-care (01) ==
LOC: WC 13:37
PROVIDERS: PCP Family Medicine; Referring Provider Podiatrist Foot & Ankle Surgery; Visit Provider Podiatrist Foot & Ankle Surgery
DX: E11.622 Type 2 diabetes mellitus with other skin ulcer (principal); E11.621 Type 2 diabetes mellitus with foot ulcer; L97.322 Non-pressure chronic ulcer of left ankle with fat layer exposed; L97.522 Non-pressure chronic ulcer of other part of left foot with fat layer exposed; M86.172 Other acute osteomyelitis, left ankle and foot; Z91.199 Patient's noncompliance with other medical treatment and regimen due to unspecified reason
CPT/HCPCS: 11042; 29581; 36415; 73610; 73630; 80048; 82962; 83036; 85027; 85652; 86140; 87070; 87075; 87077; 87186; 87205

== ENCOUNTER 2025-03-01 08:45 | Outpatient (RCR) | payer MEDICARE, OTHER, SELFPAY ==
--- NOTE | 2025-02-06 13:05 | VDLE_ITS ---
Reason For Study Reason For Study: Edema RIGHT LEFT CFV is compressible, spontaneous, phasic, competent CFV is compressible, spontaneous, phasic, competent, and demonstrates normal augmentation. and demonstrates normal augmentation. FV is compressible, spontaneous, phasic, competent FV is compressible, spontaneous, phasic, competent and demonstrates normal augmentation. and demonstrates normal augmentation. POP V is compressible, spontaneous, phasic, competent POP V is compressible, spontaneous, phasic, competent and demonstrates normal augmentation. and demonstrates normal augmentation. T/P Trunk is compressible. T/P Trunk is compressible. PTV is compressible. PTV is compressible. RT PerV is compressible. LT PerV is compressible. SFJ is competent and measures 1.06 cm. SFJ is competent and measures 0.92 cm. GSV proximal thigh measures 0.65x0.79 cm. GSV proximal thigh measures 0.56x0.60 cm. GSV at knee measures 0.37x0.39 cm. GSV at knee measures 0.34x0.41 cm. GSV INCOMPETENT throughout for greater than 0.5 GSV above knee is INCOMPETENT for greater than 0.5 seconds. seconds. INCOMPETENT right pattern weaver noted 15 cm above the GSV below knee is competent. medial malleolus measuring 0.44 cm. SSV mid calf is competent and measures 0.16x0.21 cm. SSV mid calf is competent and measures 0.18x0.20 cm. Procedure Exam performed in department. This is a venous duplex using B-mode, color flow and spectral Doppler. The exam was diagnostic. Patient was scanned in reverse Trendelenburg position during reflux assessment. VL/Venous Duplex US - Masoud Extrem Interpretation Summary Deep veins of the lower extremities are bilaterally patent and compressible seg mentally. There is no evidence of deep vein thrombosis on either side. Valvular competence appears intact within the p roximal deep venous systems bilaterally. The great saphenous veins appear bilaterally patent and compressible segmentall y. Sapheno-femoral junctions are bilaterally competent . The right great saphenous vein appears segmentally inco mpetent. The left great saphenous vein appears incompetent above the knee. The left great saphenous vein appears compe tent below the knee. Small saphenous veins are patent and competent bilaterally. An incompetent pattern weaver vein is n oted in the right calf, located 15 centimeters proximal to the right medial malleolus. Ordering Physician: Sunny Hyatt Referring Physician: Swapnil Osullivan Performed By: Erika Aleman RVT
--- NOTE | 2025-02-06 13:25 | ART_ITS ---
Reason For Study Reason For Study: Left foot ulcer Procedure A bilateral lower extremity continuous wave Doppler with analog waveform analysis,segmental pressures,and ankle brachial indexes without exercise. Left Segmental Pressures Left brachial= 147mmHg. Left posterior tibial artery = 148mmHg. Left dorsalis pedis artery = 148mmHg. Left digit = 157 mmHg. The left dorsalis pedis waveforms are triphasic. The left posterior tibial artery waveforms are triphasic. Right Segmental Pressures Right brachial= 141mmHg. Right posterior tibial artery = 148mmHg. Right dorsalis pedis artery = 143mmHg. Right digit = 117 mmHg. The right dorsalis pedis waveforms are triphasic. The right posterior tibial artery waveforms are triphasic. Indices The right ankle brachial index by the dorsalis pedis is 0.97. The right ankle brachial index by the posterior tibial artery is 1.01. The right digital-brachial index is 0.80. The left ankle brachial index by the dorsalis pedis is 1.01. The left ankle brachial index by the posterior tibial artery is 1.01. The left digital-brachial index is 1.07. VL/Lower Ext Art Exam w/o Exercis Interpretation Summary Triphasic Doppler waveforms are noted at ankle level bilaterally. Pulse-volume recordings appear mildly diminished at ankle and digital levels on the right, but satisfactory at all other levels bandar aterally. Resting ankle-brachial indices are normal bilaterally. Digital-brachial indices are normal bilaterally. There is no evidence of significant arterial occlusive disease in the lower ext remities bilaterally. Ordering Physician: Sunny Hyatt Referring Physician: Swapnil Osullivan Performed By: KLEBER TIERNEY RVT
[2025-02-08 08:40] VITALS: BP 122/82; PULSE 83; RESP 16; TEMP 36.3
--- NOTE | 2025-02-08 09:10 | PN.PCM_ITS ---
History of Present Illness Date of Service: 02/08/25 Chief Complaint: non healing ulcer of left lateral malleolus/ankle History of Wound: Be is a 67-year-old white male with type 2 diabetes and a history of poor healing wounds that presents to the wound center today for evaluation and treatment of a nonhealing ulcer of his left lateral ankle/malleolus that started approximately 4 weeks ago. He thinks that his boot was rubbing the area and then noticed that there was drainage and was treating with a bandaid and antibiotic ointment with no improvement and increased drainage and erythema and swelling and then was seen by his PCP who started him on doxycyline and there was still no improvement so he gave him 1 dose of IM Rocephin and then started him on Cephalexin and Bactrim for which he has been taking almost 10 days of treatment and has 5 more days left of medication. He was then referred to the wound center for treatment. He has been covering the wound with gauze and antibiotic ointment but leaving it open to air when he is at home. He appears to have Charcot of the right foot and a collapsed right arch. He has had vascular testing by Dr. Flores his apartment locator at the [facility] last year. His last A1C is unknown. He denies fever, chills, increased erythema or drainage and has been taking his antibiotics as instructed. Wound culture 01/09/23 was positive for anaerobic bacteria, Pseudomonas, Enterococcus and Klebsiella. He was started on Augmentin and Ciprofloxacin and completed treatment. He had vascular testing and venous insufficiency not identified. ABIs were WNL and not changed from previous. He had CTA with runoff scheduled on 01/21/23 which showed some areas of stenosis in left leg but there was blood flow to dorsalis pedis artery. He had consultation with vascular surgery on 02/02/[address] Gibson prefers to defer any surgical intervention for now as he does not think there is significant arterial disease in his left leg contributing to his difficulty healing. Progress of Wound: Stable full-thickness wound to left lower extremity. Subjective Subjective Patient is a 69-year-old diabetic male presenting to wound care center today for follow-up evaluation of full-thickness wound to the left hallux left fourth digit and left lateral ankle. Patient states the wounds are stable. He is doing dressing changes as discussed. He is on his oral antibiotics but needs a refill of his Levaquin as he only had 1 week. He is planning on surgical intervention to the right foot on February 20 by an outside provider. He denies any new onset of trauma. Denies constitutional symptoms. No other pedal complaints at this time. Objective Data Objective Data Vital Signs: Vital Signs Temp Pulse Resp BP O2 Del Method 97.3 F L 83 16 122/82 H Room Air 02/08/25 08:40 02/08/25 08:40 02/08/25 08:40 02/08/25 08:40 02/08/25 08:40 Oxygen Delivery Method Room Air Lab / Micro Data Labs: Laboratory Results - last 24 hr 02/01/25 09:09: POC Glucose 186 H Micro: Microbiology 01/25/25 09:07 Ulcer, Decubitus - Toe Gram Stain - Final 01/25/25 09:07 Ulcer, Decubitus - Toe Wound Culture - Final Staphylococcus xylosus Staphylococcus lugdunensis Staphylococcus epidermidis Staphylococcus haemolyticus 01/25/25 09:07 Ulcer, Decubitus - Toe Anaerobic Culture - Final No anaerobic bacteria isolated. Radiography Diagnostic Testing: Radiology Impression Venous Doppler Study 02/06/25 13:05 Interpretation Summary Deep veins of the lower extremities are bilaterally patent and compressible segmentally. There is no evidence of deep vein thrombosis on either side. Valvular competence appears intact within the proximal deep venous systems bilaterally. The great saphenous veins appear bilaterally patent and compressible segmentally. Sapheno-femoral junctions are bilaterally competent . The right great saphenous vein appears segmentally incompetent. The left great saphenous vein appears incompetent above the knee. The left great saphenous vein appears competent below the knee. Small saphenous veins are patent and competent bilaterally. An incompetent immunology teacher vein is noted in the right calf, located 15 centimeters proximal to the right medial malleolus. Ordering Physician: Sunny Hyatt Referring Physician: Swapnil Osullivan Performed By: Erika Tierney RVT Extremity Arterial Study 02/06/25 13:25 Interpretation Summary Triphasic Doppler waveforms are noted at ankle level bilaterally. Pulse-volume recordings appear mildly diminished at ankle and digital levels on the right, but satisfactory at all other levels bilaterally. Resting ankle-brachial indices are normal bilaterally. Digital-brachial indices are normal bilaterally. There is no evidence of significant arterial occlusive disease in the lower extremities bilaterally. Ordering Physician: Sunny Hyatt Referring Physician: Swapnil Osullivan Performed By: ERIKA TIERNEY RVT Physical Exam Narrative Vascular: DP and PT pulse are palpable bilateral. CFT is brisk. Improved erythema to the left foot. Skin temperature gradient is warm to warm from proximal ankles to distal digit with focal increase appreciated to the left fourth digit. Neurological: Light touch intact. Patient response to painful stimuli. Dermatological: Full-thickness wound appreciated to the left lateral ankle measuring 0.7 x 0.5 x 0.3 cm. Negative probe to bone. Wound base is fibrogranular nature. Blanchable erythema appreciated to the periwound, improving. Evidence of eschar appreciated to the distal lateral aspect of the left fourth digit measuring 0.6 x 1.1 x 0.1 cm. Improved erythema. Evidence of full-thickness wound to the left hallux measuring 0.5 x 0.5 x 0.1 cm. Wound bas e is fibrogranular nature. Improved erythema. Excisional debridement down to including subcutaneous tissue of the left hallux full-thickness wound done with a number 3 mm dermal curette without incident. Predebridement measurement was 0.4 x 0.4 x 0.1 cm. Postdebridement measurement is 0.5 x 0.5 x 0.1 cm. Excisional debridement down to including subcutaneous tissue of the left lateral ankle full-thickness wound done without incident using a number 3 mm dermal curette. Predebridement measurement was 0.6 x 0.4 x 0.2 cm. Postdebridement measurement is 0.7 x 0.5 x 0.3 cm. Excisional debridement down to including subcutaneous tissue of the left fourth digit full-thickness wound done without incident using a number 3 mm dermal curette. Predebridement measurement was eschar. Postdebridement measurement is 0.6 x 1.1 x 0.1 cm. Musculoskeletal: Mild pain to palpation to the full-thickness wound to the lateral left ankle. No pain to palpation to the left fourth digit and great toe. No pain with calf pressure. Debridement Note Debridement Note Debridement Free Text: Excisional debridement down to including subcutaneous tissue of the left hallux full-thickness wound done with a number 3 mm dermal curette without incident. Predebridement measurement was 0.4 x 0.4 x 0.1 cm. Postdebridement measurement is 0.5 x 0.5 x 0.1 cm. Excisional debridement down to including subcutaneous tissue of the left lateral ankle full-thickness wound done without incident using a number 3 mm dermal curette. Predebridement measurement was 0.6 x 0.4 x 0.2 cm. Postdebridement measurement is 0.7 x 0.5 x 0.3 cm. Excisional debridement down to including subcutaneous tissue of the left fourth digit full-thickness wound done without incident using a number 3 mm dermal curette. Predebridement measurement was eschar. Postdebridement measurement is 0.6 x 1.1 x 0.1 cm. Post-Debridement Measurements and Additional Note: Post-Debridement Measurements/Treatment [facility] Nurse 1 - General Ulcer Assessment Start: 02/08/25 08:40 Freq: Status: Active Protocol: .LOWEXT Activity Type Activity Date Activity User E-sign Co-sign Detail Recorded Client Recorded Date Recorded By Document 02/08/25 08:40 [id number] 02/08/25 08:42 02/08/25 08:40 - Today's Visit Information Type of service Follow-up Visit (Physician/[employer] ) Arrival Mode Ambulatory Transfer Assistance None Accompanied by Patient Identification Verified (Name & Yes ) Patient Requires Transmission-Based No Precautions Vital Signs Temperature (97.8 F-99.1 F) 97.3 F L Temperature Source Temporal Pulse Rate (60-100) 83 Pulse Location Monitor Respiratory Rate (12-18) 16 Respiratory rate source Observation Oxygen Delivery Method Room Air Blood Pressure (90/60-120/80) 122/82 H Blood Pressure Mean (mm Hg) 95 Source Monitor Position Sitting Blood Pressure Location Left Arm History Since Last Visit- (Skip if this is Patient's initial visit) Have you changed medications since your Yes last visit? Any new allergies or adverse reactions No Had a fall/change in ADL's that may No increase risk of falls Signs or symptoms of abuse and/or No neglect since last visit Have you been in the hospital since your No last visit? Has dressing in place as prescribed Yes Has compression in place as prescribed Yes Has offloadiing in place as prescribed Yes Experienced any changes in pain level or No management Left Footwear Regular Shoe Pain Scale: 0-10 Numeric Is Patient Pain Free? Yes WC - Nurse 1 - General Ulcer Measurement Start: 02/08/25 08:40 Freq: Status: Active Protocol: Activity Type Activity Date Activity User E-sign Co-sign Detail Recorded Client Recorded Date Recorded By Document 02/08/25 08:43 [id number] 02/08/25 08:47 02/08/25 08:43 Wound Center Nurse 1 #9 left great toe -Current Size (cm) - Length 0.3 -Current Size (cm) - Width 0.3 -Current Size (cm) - Depth 0.1 -Total Square Cm 0.09 -Date of Last Picture (Recall this 02/08/25 field) -Photo Taken Yes -Epithelialization None Present -Tunneling No -Undermining/Tunneling No -Circular Undermining No -Exudate Amt None Present -Wound Margin Distinct, Outline Attached -Granulation Amt Small (1-33%) -Slough/Fibrin Yes -Necrosis Amt Small (1-33%) -Necrotic Tissue Type Adherent Slough -Texture (Gricelda-wound Skin Appearance) Assessed -Moisture (Gricelda-wound Skin Appearance) Assessed -Color (Gricelda-wound Skin Appearance) Assessed -Temperature (Gricelda-wound Skin No Abnormality Appearance) (Pt Warm) -Tenderness on Palpation (Gricelda-wound Yes Skin Appearance) -Ulcer Cleansing Soap and Water -Anesthetic Used 5% Lidocaine Gel 8-left 4th toe -Current Size (cm) - Length 0.5 -Current Size (cm) - Width 0.7 -Current Size (cm) - Depth 0.1 -Total Square Cm 0.35 -Date of Last Picture (Recall this 02/08/25 field) -Photo Taken Yes -Epithelialization Small 1-33% -Tunneling No -Undermining/Tunneling No -Circular Undermining No -Exudate Amt None Present -Wound Margin Distinct, Outline Attached -Granulation Amt None Present (0 %) -Slough/Fibrin No -Texture (Gricelda-wound Skin Appearance) Assessed -Moisture (Gricelda-wound Skin Appearance) Assessed -Color (Gricelda-wound Skin Appearance) Assessed -Temperature (Gricelda-wound Skin No Abnormality Appearance) (Pt Warm) -Tenderness on Palpation (Gricelda-wound No Skin Appearance) -Ulcer Cleansing Soap and Water -Anesthetic Used 5% Lidocaine Gel #7 LT LAT ANKLE -Current Size (cm) - Length 0.5 -Current Size (cm) - Width 0.4 -Current Size (cm) - Depth 0.3 -Total Square Cm 0.20 -Date of Last Picture (Recall this 02/08/25 field) -Photo Taken Yes -Epithelialization None Present -Tunneling No -Undermining/Tunneling No -Circular Undermining No -Exudate Amt None Present -Wound Margin Distinct, Outline Attached -Granulation Amt None Present (0 %) -Necrosis Amt Small (1-33%) -Necrotic Tissue Type Adherent Slough -Texture (Gricelda-wound Skin Appearance) Assessed -Moisture (Gricelda-wound Skin Appearance) Assessed -Color (Gricelda-wound Skin Appearance) Assessed -Temperature (Gricelda-wound Skin No Abnormality Appearance) (Pt Warm) -Tenderness on Palpation (Gricelda-wound Yes Skin Appearance) -Ulcer Cleansing Soap and Water -Anesthetic Used 5% Lidocaine Gel Lower Limb Edema Present No Left Calf (cm) 39 Left Ankle (cm) 25 WC - Nurse 2 - General Ulcer CM Notes Start: 02/08/25 08:40 Freq: Status: Active Protocol: Activity Type Activity Date Activity User E-sign Co-sign Detail Recorded Client Recorded Date Recorded By Document 02/08/25 08:55 [email or web address] [id number] 02/08/25 09:04 MONICO 02/08/25 08:55 Wound Center Nurse 2 #9 left great toe -Time 08:57 -Correct Patient Yes -Correct Side, Site, Position No -Correct Procedure No -Procedure Performed No -Tunneling No -Undermining/Tunneling No -Circular Undermining No -Wound/Ulcer Outcome Not Healed -Ulcer Cleansing Rinsed/ Irrigated with Saline -Foul Odor after Cleansing No -Bioengineered Tissue No -Offloading Yes -Type of Offloading Surgical Shoe -Debridement - Subq, 1st 20sq cm No 8-left 4th toe -Time 08:58 -Correct Patient Yes -Correct Side, Site, Position Yes -Correct Procedure Yes -Procedure Performed Yes -Type of Procedure Debridement -Clinical Debridement Subcutaneous -Tissue Removed Subcutaneous -Post Debridement (cm) - Length 0.6 -Post Debridement (cm) - Width 1.1 -Post Debridement (cm) - Depth 0.1 -Total Square (Post) (cm) 0.66 -Area of Debridement (cm) - Length 0.6 -Area of Debridement (cm) - Width 1.1 -Total Square (Area) (cm) 0.66 -Tunneling No -Undermining/Tunneling No -Circular Undermining No -Wound/Ulcer Outcome Not Healed -Ulcer Cleansing Rinsed/ Irrigated with Saline -Foul Odor after Cleansing No -Bioengineered Tissue No -Bleeding Controlled with Pressure -Treatment Response Procedure Tolerated Well -Offloading Yes -Type of Offloading Surgical Shoe -Debridement - Subq, 20sq cm No #7 LT LAT ANKLE -Time 08:58 -Correct Patient Yes -Correct Side, Site, Position Yes -Correct Procedure Yes -Procedure Performed Yes -Type of Procedure Debridement -Clinical Debridement Subcutaneous -Tissue Removed Subcutaneous -Post Debridement (cm) - Length 0.7 -Post Debridement (cm) - Width 0.5 -Post Debridement (cm) - Depth 0.3 -Total Square (Post) (cm) 0.35 -Area of Debridement (cm) - Length 0.7 -Area of Debridement (cm) - Width 0.5 -Total Square (Area) (cm) 0.35 -Tunneling No -Undermining/Tunneling No -Circular Undermining No -Wound/Ulcer Outcome Not Healed -Ulcer Cleansing Rinsed/ Irrigated with Saline -Foul Odor after Cleansing No -Bioengineered Tissue No -Bleeding Controlled with Pressure -Treatment Response Procedure Tolerated Well -Offloading Yes -Type of Offloading Surgical Shoe -Debridement - Subq, 1st 20sq cm Yes Pain Scale: 0-10 Numeric Is Patient Pain Free? Yes Assessment/Plan Assessment/Plan (1) Osteomyelitis of ankle, left, acute: CODE(S): M86.172 - Other acute osteomyelitis, left ankle and foot PLAN: Patient was examined and evaluated. All findings were discussed with the patient. All questions were answered to the patient satisfaction. Excisional debridement down to including subcutaneous tissue of the left hallux full-thickness wound done with a number 3 mm dermal curette without incident. Predebridement measurement was 0.4 x 0.4 x 0.1 cm. Postdebridement measurement is 0.5 x 0.5 x 0.1 cm. Excisional debridement down to including subcutaneous tissue of the left lateral ankle full-thickness wound done without incident using a number 3 mm dermal curette. Predebridement measurement was 0.6 x 0.4 x 0.2 cm. Postdebridement measurement is 0.7 x 0.5 x 0.3 cm. Excisional debridement down to including subcutaneous tissue of the left fourth digit full-thickness wound done without incident using a number 3 mm dermal curette. Predebridement measurement was eschar. Postdebridement measurement is 0.6 x 1.1 x 0.1 cm. The left lower extremities were cleaned and patted dry. Betadine soaked gauze was applied to all full-thickness wound followed by dry sterile dressing and compression wrap. I educated the patient on the importance of compression as this can be the leading factor to the delayed wound healing. We discussed the hydroxyurea medication that he is taking for his erythrocytosis and recommended to follow-up with the record press operator or record press operator [employer] to see if he can get off it which he will discuss with them today versus tomorrow. Overall the patient is doing well and compliant with orders. He is showing great improvement with his blood sugar as his last A1c was 5.2% on 02/02/2025 and down from 6.2 on 04/20/2018. Patient will continue to check his feet twice per day. Patient will continue all antibiotics as prescribed. The patient did tell me, that the outside provider who will be doing his amputation on 20 February wants the x-rays of the left ankle to determine whether or not he may or may not do the bone biopsy. This will be against my recommendations however the surgeon can practice the way that he wants to. However, if the patient does have chronic slow healing wound at the end of March I will recommend moving forward with bone biopsy [facility]. Review of the patient's vascular studies show evidence of normal PANCHO to the bilateral lower extremity with triphasic pulses. The patient does have some evidence of venous insufficiency and will continue to wear compression as discussed. Patient will follow-up with Dr. Ley in 1 week (2) Non-pressure chronic ulcer of left ankle with fat layer exposed: CODE(S): L97.322 - Non-pressure chronic ulcer of left ankle with fat layer exposed (3) Non-pressure chronic ulcer of other part of left foot with fat layer exposed: CODE(S): L97.522 - Non-pressure chronic ulcer of other part of left foot with fat layer exposed (4) Medical non-compliance: CODE(S): Z91.199 - Patient's noncompliance with other medical treatment and regimen due to unspecified reason (5) Other specified peripheral vascular diseases: CODE(S): I73.89 - Other specified peripheral vascular diseases
--- NOTE | 2025-02-09 09:48 | WC ---
PHOTO-LEFT LATERAL ANKLE 02/08/25
--- NOTE | 2025-02-09 09:51 | WC ---
PHOTO-LEFT 4TH TOE 02/08/25
--- NOTE | 2025-02-09 09:52 | WC ---
PHOTO-RIGHT HALLUX 02/08/25
[2025-02-15 08:43] VITALS: BP 138/83; PULSE 86; RESP 18; TEMP 36.1
--- NOTE | 2025-02-15 09:48 | PN.PCM_ITS ---
History of Present Illness Date of Service: 02/15/25 Chief Complaint: non healing ulcer of left lateral malleolus/ankle History of Wound: Be is a 67-year-old white male with type 2 diabetes and a history of poor healing wounds that presents to the wound center today for evaluation and treatment of a nonhealing ulcer of his left lateral ankle/malleolus that started approximately 4 weeks ago. He thinks that his boot was rubbing the area and then noticed that there was drainage and was treating with a bandaid and antibiotic ointment with no improvement and increased drainage and erythema and swelling and then was seen by his PCP who started him on doxycyline and there was still no improvement so he gave him 1 dose of IM Rocephin and then started him on Cephalexin and Bactrim for which he has been taking almost 10 days of treatment and has 5 more days left of medication. He was then referred to the wound center for treatment. He has been covering the wound with gauze and antibiotic ointment but leaving it open to air when he is at home. He appears to have Charcot of the right foot and a collapsed right arch. 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 His last A1C is unknown. He denies fever, chills, increased erythema or drainage and has been taking his antibiotics as instructed. Wound culture 01/09/23 was positive for anaerobic bacteria, Pseudomonas, Enterococcus and Klebsiella. He was started on Augmentin and Ciprofloxacin and completed treatment. He had vascular testing and venous insufficiency not identified. ABIs were WNL and not changed from previous. He had CTA with runoff scheduled on 01/21/23 which showed some areas of stenosis in left leg but there was blood flow to dorsalis pedis artery. He had consultation with vascular surgery on 02/02/[address] Gibson prefers to defer any surgical intervention for now as he does not think there is significant arterial disease in his left leg contributing to his difficulty healing. Progress of Wound: Stable full-thickness wound to left lower extremity. Subjective Subjective Patient is a 69-year-old diabetic male presenting to the wound care center today for follow-up evaluation of full-thickness wounds to the left lower extremity. Patient has been doing dressing changes as discussed. He is planning for surgical intervention by an outside provider Thursday for amputation of the right fourth digit. They will most likely not be any plan for bone biopsy to the ankle area. Patient states that he is taking antibiotics as prescribed. He missed the redness has improved to the left foot and ankle. He denies trauma. He is elevating more than previous. He denies constitutional symptoms. No other pedal complaints at this time. Objective Data Objective Data Vital Signs: Vital Signs Temp Pulse Resp BP O2 Del Method 97.0 F L 86 18 138/83 H Room Air 02/15/25 08:43 02/15/25 08:43 02/15/25 08:43 02/15/25 08:43 02/08/25 08:40 Oxygen Delivery Method Room Air Lab / Micro Data Labs: Laboratory Results - last 24 hr 02/01/25 09:09: POC Glucose 186 H Micro: Microbiology 01/25/25 09:07 Ulcer, Decubitus - Toe Gram Stain - Final 01/25/25 09:07 Ulcer, Decubitus - Toe Wound Culture - Final Staphylococcus xylosus Staphylococcus lugdunensis Staphylococcus epidermidis Staphylococcus haemolyticus 01/25/25 09:07 Ulcer, Decubitus - Toe Anaerobic Culture - Final No anaerobic bacteria isolated. Radiography Diagnostic Testing: Radiology Impression Venous Doppler Study 02/06/25 13:05 Interpretation Summary Deep veins of the lower extremities are bilaterally patent and compressible segmentally. There is no evidence of deep vein thrombosis on either side. Valvular competence appears intact within the proximal deep venous systems bilaterally. The great saphenous veins appear bilaterally patent and compressible segmentally. Sapheno-femoral junctions are bilaterally competent . The right great saphenous vein appears segmentally incompetent. The left great saphenous vein appears incompetent above the knee. The left great saphenous vein appears competent below the knee. Small saphenous veins are patent and competent bilaterally. An incompetent marble machine tender vein is noted in the right calf, located 15 centimeters proximal to the right medial malleolus. Ordering Physician: Sunny Hyatt Referring Physician: Swapnil Osullivan Performed By: Erika Tierney, RVT Extremity Arterial Study 02/06/25 13:25 Interpretation Summary Triphasic Doppler waveforms are noted at ankle level bilaterally. Pulse-volume recordings appear mildly diminished at ankle and digital levels on the right, but satisfactory at all other levels bilaterally. Resting ankle-brachial indices are normal bilaterally. Digital-brachial indices are normal bilaterally. There is no evidence of significant arterial occlusive disease in the lower extremities bilaterally. Ordering Physician: Sunny Hyatt Referring Physician: Swapnil Osullivan Performed By: ERIKA TIERNEY RVT Physical Exam Narrative Vascular: DP and PT pulse are palpable bilateral. CFT is brisk. Blanchable erythema to the left fourth digit. Improved erythema to the left lateral ankle. Skin temperature gradient is warm to warm from proximal ankles to distal digit with mild focal increase appreciated to the left fourth digit. Neurological: Light touch intact. Patient response to painful stimuli. Dermatological: Full-thickness wound appreciated to the left lateral ankle measuring 0.7 x 0.3 x 0.2 cm. Wound base is fibrogranular nature. Full- thickness wound to the left fourth digit measuring 0.8 x 0.8 x 0.3 cm. Negative probe to bone. Positive probe to muscle. Evidence of blanchable erythema. Evidence of full-thickness wound to the left hallux measuring 0.5 x 0.3 x 0.1 cm. Wound base is fibrogranular nature. Excisional debridement down to including subcutaneous tissue of the left hallux full-thickness wound done with a number 3 mm dermal curette without incident. Predebridement measurement was sanguinous crust postdebridement measurement is 0.5 x 0.3 x 0.1 cm. Excisional debridement down to including subcutaneous tissue of the left lateral ankle full-thickness wound done without incident using a number 3 mm dermal curette. Predebridement measurement was 0.5 x 0.2 x 0.2 cm. Postdebridement measurement is 0.7 x 0.3 to 0.2 cm. Excisional debridement down to including subcutaneous tissue, fascia and muscle of the left fourth digit full-thickness wound done without incident using a number 3 mm dermal curette. Predebridement measurement was eschar. Postdebridement measurement is 0.8 x 0.8 x 0.3 cm. Musculoskeletal: Mild pain to palpation to the full-thickness wound to the lateral left ankle. No pain to palpation to the left fourth digit and great toe. No pain with calf pressure. Debridement Note Debridement Note Debridement Free Text: Excisional debridement down to including subcutaneous tissue of the left hallux full-thickness wound done with a number 3 mm dermal curette without incident. Predebridement measurement was sanguinous crust postdebridement measurement is 0.5 x 0.3 x 0.1 cm. Excisional debridement down to including subcutaneous tissue of the left lateral ankle full-thickness wound done without incident using a number 3 mm dermal curette. Predebridement measurement was 0.5 x 0.2 x 0.2 cm. Postdebridement measurement is 0.7 x 0.3 to 0.2 cm. Excisional debridement down to including subcutaneous tissue, fascia and muscle of the left fourth digit full-thickness wound done without incident using a number 3 mm dermal curette. Predebridement measurement was eschar. Postdebridement measurement is 0.8 x 0.8 x 0.3 cm. Post-Debridement Measurements and Additional Note: Post-Debridement Measurements/Treatment - Nurse 1 - General Ulcer Assessment Start: 02/08/25 08:40 Freq: Status: Active Protocol: WC.LOWRAMIREZT Activity Type Activity Date Activity User E-sign Co-sign Detail Recorded Client Recorded Date Recorded By Document 02/08/25 08:40 GM [id number] 02/08/25 08:42 GM Document 02/15/25 08:43 KW [id number] 02/15/25 08:56 KW 02/08/25 02/15/25 08:40 08:43 - Today's Visit Information Type of service Follow-up Visit Follow-up Visit (Physician/NUISANCE WILDLIFE CONTROL OPERATOR (Physician/NUISANCE WILDLIFE CONTROL OPERATOR ) ) Arrival Mode Ambulatory Ambulatory Transfer Assistance None Accompanied by Patient Identification Verified (Name & Yes Yes ) Patient Requires Transmission-Based No Precautions Vital Signs Temperature (97.8 F-99.1 F) 97.3 F L 97.0 F L Temperature Source Temporal Temporal Pulse Rate (60-100) 83 86 Pulse Location Monitor Monitor Respiratory Rate (12-18) 16 18 Respiratory rate source Observation Ausculation Oxygen Delivery Method Room Air Blood Pressure (90/60-120/80) 122/82 H 138/83 H Blood Pressure Mean (mm Hg) 95 101 Source Monitor Monitor Position Sitting Semi-Fowlers Blood Pressure Location Left Arm Right Arm History Since Last Visit- (Skip if this is Patient's initial visit) Have you changed medications since your Yes No last visit? Any new allergies or adverse reactions No No Had a fall/change in ADL's that may No No increase risk of falls Signs or symptoms of abuse and/or No No neglect since last visit Have you been in the hospital since your No No last visit? Has dressing in place as prescribed Yes Yes Has compression in place as prescribed Yes Yes Has offloadiing in place as prescribed Yes Yes Experienced any changes in pain level or No No management Left Footwear Regular Shoe Surgical Shoe with pressure relief insole Right Footwear Regular Shoe Pain Scale: 0-10 Numeric Is Patient Pain Free? Yes Yes - Nurse 1 - General Ulcer Measurement Start: 02/08/25 08:40 Freq: Status: Active Protocol: Activity Type Activity Date Activity User E-sign Co-sign Detail Recorded Client Recorded Date Recorded By Document 02/08/25 08:43 [id number] 02/08/25 08:47 Document 02/15/25 08:43 [id number] 02/15/25 08:56 02/08/25 02/15/25 08:43 08:43 Wound Center Nurse 1 #9 left great toe -Current Size (cm) - Length 0.3 0.5 -Current Size (cm) - Width 0.3 0.4 -Current Size (cm) - Depth 0.1 0.1 -Total Square Cm 0.09 0.20 -Date of Last Picture (Recall this 02/08/25 02/15/25 field) -Photo Taken Yes -Epithelialization None Present -Tunneling No -Undermining/Tunneling No -Circular Undermining No -Exudate Amt None Present Medium -Exudate Type Serosanguineous -Wound Margin Distinct, Distinct, Outline Outline Attached Attached -Granulation Amt Small (1-33%) None Present (0 %) -Slough/Fibrin Yes -Necrosis Amt Small (1-33%) Large (67-100%) -Necrotic Tissue Type Adherent Slough Adherent Slough -Texture (Gricelda-wound Skin Appearance) Assessed Assessed -Moisture (Gricelda-wound Skin Appearance) Assessed Assessed -Color (Gricelda-wound Skin Appearance) Assessed Assessed, Erythema -Temperature (Gricelda-wound Skin No Abnormality No Abnormality Appearance) (Pt Warm) (Pt Warm) -Tenderness on Palpation (Gricelda-wound Yes No Skin Appearance) -Ulcer Cleansing Soap and Water Rinsed/ Irrigated with Saline -Foul Odor after Cleansing No -Anesthetic Used 5% Lidocaine 5% Lidocaine Gel Gel 8-left 4th toe -Current Size (cm) - Length 0.5 0.5 -Current Size (cm) - Width 0.7 0.9 -Current Size (cm) - Depth 0.1 0.2 -Total Square Cm 0.35 0.45 -Date of Last Picture (Recall this 02/08/25 02/15/25 field) -Photo Taken Yes -Epithelialization Small 1-33% -Tunneling No -Undermining/Tunneling No -Circular Undermining No -Exudate Amt None Present Medium -Exudate Type Yellow/Green -Wound Margin Distinct, Thickened Outline Attached -Granulation Amt None Present (0 None Present (0 %) %) -Slough/Fibrin No -Necrosis Amt Large (67-100%) -Necrotic Tissue Type Adherent Slough -Texture (Gricelda-wound Skin Appearance) Assessed Assessed, Localized Edema -Moisture (Gricelda-wound Skin Appearance) Assessed Assessed -Color (Gricelda-wound Skin Appearance) Assessed Assessed, Erythema -Temperature (Gricelda-wound Skin No Abnormality No Abnormality Appearance) (Pt Warm) (Pt Warm) -Tenderness on Palpation (Gricelda-wound No No Skin Appearance) -Ulcer Cleansing Soap and Water Rinsed/ Irrigated with Saline -Foul Odor after Cleansing No -Anesthetic Used 5% Lidocaine 5% Lidocaine Gel Gel #7 LT LAT ANKLE -Current Size (cm) - Length 0.5 0.4 -Current Size (cm) - Width 0.4 0.3 -Current Size (cm) - Depth 0.3 0.3 -Total Square Cm 0.20 0.12 -Date of Last Picture (Recall this 02/08/25 02/15/25 field) -Photo Taken Yes -Epithelialization None Present -Tunneling No -Undermining/Tunneling No -Circular Undermining No -Exudate Amt None Present Medium -Exudate Type Serosanguineous -Wound Margin Distinct, Thickened & Outline Rolled Under Attached -Granulation Amt None Present (0 Medium (34-66%) %) -Granulation Quality [place] -Necrosis Amt Small (1-33%) Medium (34-66%) -Necrotic Tissue Type Adherent Slough Adherent Slough -Texture (Gricelda-wound Skin Appearance) Assessed Assessed, Localized Edema -Moisture (Gricelda-wound Skin Appearance) Assessed Assessed -Color (Gricelda-wound Skin Appearance) Assessed Assessed -Temperature (Gricelda-wound Skin No Abnormality No Abnormality Appearance) (Pt Warm) (Pt Warm) -Tenderness on Palpation (Gricelda-wound Yes No Skin Appearance) -Ulcer Cleansing Soap and Water Rinsed/ Irrigated with Saline -Foul Odor after Cleansing No -Anesthetic Used 5% Lidocaine 5% Lidocaine Gel Gel Lower Limb Edema Present No Left Calf (cm) 39 38 Left Ankle (cm) 25 24.5 WC - Nurse 2 - General Ulcer CM Notes Start: 02/08/25 08:40 Freq: Status: Active Protocol: Activity Type Activity Date Activity User E-sign Co-sign Detail Recorded Client Recorded Date Recorded By Document 02/08/25 08:55 JF [id number] 02/08/25 09:04 Document 02/15/25 09:04 JF [id number] 02/15/25 09:17 02/08/25 02/15/25 08:55 09:04 Wound Center Nurse 2 #9 left great toe -Time 08:57 09:05 -Correct Patient Yes Yes -Correct Side, Site, Position No Yes -Correct Procedure No Yes -Procedure Performed No Yes -Type of Procedure Debridement -Clinical Debridement Subcutaneous -Tissue Removed Subcutaneous -Post Debridement (cm) - Length 0.5 -Post Debridement (cm) - Width 0.3 -Post Debridement (cm) - Depth 0.1 -Total Square (Post) (cm) 0.15 -Area of Debridement (cm) - Length 0.5 -Area of Debridement (cm) - Width 0.3 -Total Square (Area) (cm) 0.15 -Tunneling No No -Undermining/Tunneling No No -Circular Undermining No No -Wound/Ulcer Outcome Not Healed Not Healed -Ulcer Cleansing Rinsed/ Rinsed/ Irrigated with Irrigated with Saline Saline -Foul Odor after Cleansing No No -Bioengineered Tissue No No -Bleeding Controlled with Pressure -Treatment Response Procedure Tolerated Well -Offloading Yes Yes -Type of Offloading Surgical Shoe Surgical Shoe -Debridement - Subq, 1st 20sq cm No No 8-left 4th toe -Time 08:58 09:05 -Correct Patient Yes Yes -Correct Side, Site, Position Yes Yes -Correct Procedure Yes Yes -Procedure Performed Yes Yes -Type of Procedure Debridement Debridement -Clinical Debridement Subcutaneous Muscle / Fascia -Tissue Removed Subcutaneous Muscle -Post Debridement (cm) - Length 0.6 0.8 -Post Debridement (cm) - Width 1.1 0.8 -Post Debridement (cm) - Depth 0.1 0.3 -Total Square (Post) (cm) 0.66 0.64 -Area of Debridement (cm) - Length 0.6 0.8 -Area of Debridement (cm) - Width 1.1 0.8 -Total Square (Area) (cm) 0.66 0.64 -Tunneling No No -Undermining/Tunneling No No -Circular Undermining No No -Wound/Ulcer Outcome Not Healed Not Healed -Ulcer Cleansing Rinsed/ Rinsed/ Irrigated with Irrigated with Saline Saline -Foul Odor after Cleansing No No -Bioengineered Tissue No No -Bleeding Controlled with Pressure Pressure -Treatment Response Procedure Procedure Tolerated Well Tolerated Well -Offloading Yes Yes -Type of Offloading Surgical Shoe Surgical Shoe -Debridement - Subq, 1st 20sq cm No No -Debridement - Muscle / Fascia, 1st Yes 20sq cm #7 LT LAT ANKLE -Time 08:58 09:06 -Correct Patient Yes Yes -Correct Side, Site, Position Yes Yes -Correct Procedure Yes Yes -Procedure Performed Yes Yes -Type of Procedure Debridement Debridement -Clinical Debridement Subcutaneous Subcutaneous -Tissue Removed Subcutaneous Subcutaneous -Post Debridement (cm) - Length 0.7 0.7 -Post Debridement (cm) - Width 0.5 0.3 -Post Debridement (cm) - Depth 0.3 0.2 -Total Square (Post) (cm) 0.35 0.21 -Area of Debridement (cm) - Length 0.7 0.7 -Area of Debridement (cm) - Width 0.5 0.3 -Total Square (Area) (cm) 0.35 0.21 -Tunneling No No -Undermining/Tunneling No No -Circular Undermining No No -Wound/Ulcer Outcome Not Healed Not Healed -Ulcer Cleansing Rinsed/ Rinsed/ Irrigated with Irrigated with Saline Saline -Foul Odor after Cleansing No No -Bioengineered Tissue No No -Bleeding Controlled with Pressure Pressure -Treatment Response Procedure Procedure Tolerated Well Tolerated Well -Offloading Yes Yes -Type of Offloading Surgical Shoe Surgical Shoe -Debridement - Subq, 1st 20sq cm Yes Yes Pain Scale: 0-10 Numeric Is Patient Pain Free? Yes Yes - Nurse 3 - General Ulcer D/C NN Start: 02/08/25 08:40 Freq: Status: Active Protocol: Activity Type Activity Date Activity User E-sign Co-sign Detail Recorded Client Recorded Date Recorded By Document 02/08/25 09:22 [id number] 02/08/25 09:23 Document 02/15/25 09:26 [id number] 02/15/25 09:27 02/08/25 02/15/25 09:22 09:26 Wound Care Center Nurse 3 #9 left great toe -Ulcer Cleansing Not Cleansed -Foul Odor after Cleansing No -Other Dressing betadine -Primary Dressing Covered/Secured with Dry Gauze, Dry Gauze, Secured with Secured with Tape Tape -Other Covering betadine 8-left 4th toe -Ulcer Cleansing Not Cleansed -Foul Odor after Cleansing No -Other Dressing betadine -Primary Dressing Covered/Secured with Dry Gauze, Dry Gauze, Secured with Secured with Tape Tape -Other Covering betadine #7 LT LAT ANKLE -Ulcer Cleansing Not Cleansed -Foul Odor after Cleansing No -Other Dressing betadine -Primary Dressing Covered/Secured with Dry Gauze, Dry Gauze & Secured with Roll Gauze, Tape Secured with Tape -Other Covering betadine LLE -Tubular Bandage Single Layer -Size of Tubigrip Used Size E -Size E ($) 1 Pain Scale: 0-10 Numeric Is Patient Pain Free? Yes Yes - Visit Discharge Discharge Condition Stable Stable Ambulatory Status Ambulatory Ambulatory Transportation Private Auto Private Auto Accompanied by Medication Reconcilliation completed & No provided to patient/care provider Clinical Summary of Care Provided Yes Assessment/Plan Assessment/Plan (1) Non-pressure chronic ulcer of other part of left foot with necrosis of muscle: CODE(S): L97.523 - Non-pressure chronic ulcer of other part of left foot with necrosis of muscle PLAN: Patient was examined and evaluated. All findings were discussed with the patient. All questions were answered to the patient satisfaction. Excisional debridement down to including subcutaneous tissue of the left hallux full-thickness wound done with a number 3 mm dermal curette without incident. Predebridement measurement was sanguinous crust postdebridement measurement is 0.5 x 0.3 x 0.1 cm. Excisional debridement down to including subcutaneous tissue of the left lateral ankle full-thickness wound done without incident using a number 3 mm dermal curette. Predebridement measurement was 0.5 x 0.2 x 0.2 cm. Postdebridement measurement is 0.7 x 0.3 to 0.2 cm. Excisional debridement down to including subcutaneous tissue, fascia and muscle of the left fourth digit full-thickness wound done without incident using a number 3 mm dermal curette. Predebridement measurement was eschar. Postdebridement measurement is 0.8 x 0.8 x 0.3 cm. The left lower extremities were cleaned and patted dry. Deep culture was taken from the left fourth digit. All wounds were dressed with Betadine paint and dry sterile dressing and compression wrap. Educated the patient continue to elevate is much as possible. Will follow the patient's antibiotic culture and sensitivity when it returns. Will dress antibiotics as needed. Patient is planning to have surgery to the right foot fourth digit by an outside provider next Thursday. Patient will follow-up with Dr. 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
--- NOTE | 2025-02-16 09:38 | WC ---
PHOTO-LEFT LATERAL ANKLE 02/15/25
--- NOTE | 2025-02-16 09:40 | WC ---
PHOTO-LEFT 4TH TOE 02/15/25
--- NOTE | 2025-02-16 09:42 | WC ---
PHOTO-LEFT HALLUX 02/15/25
--- NOTE | 2025-02-17 08:38 | WC ---
PHOTO-LEFT LATERAL ANKLE 02/15/25
--- NOTE | 2025-02-17 08:45 | WC ---
PHOTO-LEFT 4TH TOE 02/15/25
--- NOTE | 2025-02-17 08:48 | WC ---
PHOTO-LEFT HALLUX 02/15/25
[2025-02-22 08:47] VITALS: BP 141/85; PULSE 85; RESP 15; TEMP 36.1
--- NOTE | 2025-02-22 10:46 | PN.PCM_ITS ---
History of Present Illness Date of Service: 02/22/25 Chief Complaint: non healing ulcer of left lateral malleolus/ankle History of Wound: Be is a 67-year-old white male with type 2 diabetes and a history of poor healing wounds that presents to the wound center today for evaluation and treatment of a nonhealing ulcer of his left lateral ankle/malleolus that started approximately 4 weeks ago. He thinks that his boot was rubbing the area and then noticed that there was drainage and was treating with a bandaid and antibiotic ointment with no improvement and increased drainage and erythema and swelling and then was seen by his PCP who started him on doxycyline and there was still no improvement so he gave him 1 dose of IM Rocephin and then started him on Cephalexin and Bactrim for which he has been taking almost 10 days of treatment and has 5 more days left of medication. He was then referred to the wound center for treatment. He has been covering the wound with gauze and antibiotic ointment but leaving it open to air when he is at home. He appears to have Charcot of the right foot and a collapsed right arch. He has had vascular testing by Dr. Flores his purchasing analyst at the [facility] last year. His last A1C is unknown. He denies fever, chills, increased erythema or drainage and has been taking his antibiotics as instructed. Wound culture 01/09/23 was positive for anaerobic bacteria, Pseudomonas, Enterococcus and Klebsiella. He was started on Augmentin and Ciprofloxacin and completed treatment. He had vascular testing and venous insufficiency not identified. ABIs were WNL and not changed from previous. He had CTA with runoff scheduled on 01/21/23 which showed some areas of stenosis in left leg but there was blood flow to dorsalis pedis artery. He had consultation with vascular surgery on 02/02/[address] Gibson prefers to defer any surgical intervention for now as he does not think there is significant arterial disease in his left leg contributing to his difficulty healing. Progress of Wound: Full-thickness wound to the left hallux and left lateral ankle stable with no sign of infection. Evidence of full-thickness wound to the left fourth digit concern for osteomyelitis on antibiotics stable Subjective Subjective The patient is a 69-year-old diabetic male presenting to clinic today for follow-up evaluation of multiple full-thickness wounds to the left lower extremity. Patient has been compliant with dressing changes. 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 Chapa at [facility]. He is following his postoperative instructions well. Patient states that he is taking his antibiotics as prescribed as his wound has grown Pseudomonas he is currently continuing Levaquin. He is handling his antibiotics well. He denies any new onset of trauma. Denies constitutional symptoms. No other pedal complaints at this time. Objective Data Objective Data Vital Signs: Vital Signs Temp Pulse Resp BP O2 Del Method 97.0 F L 85 15 141/85 H Room Air 02/22/25 08:47 02/22/25 08:47 02/22/25 08:47 02/22/25 08:47 02/08/25 08:40 Oxygen Delivery Method Room Air Lab / Micro Data Labs: Laboratory Results - last 24 hr 02/01/25 09:09: POC Glucose 186 H Micro: Microbiology 02/15/25 09:15 Wound - Toe Gram Stain - Final 02/15/25 09:15 Wound - Toe Wound Culture - Final Pseudomonas aeruginosa Corynebacterium minutissimum 02/15/25 09:15 Wound - Toe Anaerobic Culture - Final No anaerobic bacteria isolated. Radiography Diagnostic Testing: Radiology Impression Venous Doppler Study 02/06/25 13:05 Interpretation Summary Deep veins of the lower extremities are bilaterally patent and compressible segmentally. There is no evidence of deep vein thrombosis on either side. Valvular competence appears intact within the proximal deep venous systems bilaterally. The great saphenous veins appear bilaterally patent and compressible segmentally. Sapheno-femoral junctions are bilaterally competent . The right great saphenous vein appears segmentally incompetent. The left great saphenous vein appears incompetent above the knee. The left great saphenous vein appears competent below the knee. Small saphenous veins are patent and competent bilaterally. An incompetent wind site manager vein is noted in the right calf, located 15 centimeters proximal to the right medial malleolus. Ordering Physician: Sunny Hyatt Referring Physician: Swapnil Osullivan By: Erika Tierney RVT Extremity Arterial Study 02/06/25 13:25 Interpretation Summary Triphasic Doppler waveforms are noted at ankle level bilaterally. Pulse-volume recordings appear mildly diminished at ankle and digital levels on the right, but satisfactory at all other levels bilaterally. Resting ankle-brachial indices are normal bilaterally. Digital-brachial indices are normal bilaterally. There is no evidence of significant arterial occlusive disease in the lower extremities bilaterally. Ordering Physician: Sunny Hyatt Referring Physician: Swapnil Osullivan Performed By: ERIKA TIERNEY RVT Physical Exam Narrative Vascular: DP and PT pulse are palpable bilateral. CFT is brisk. Blanchable erythema to the left fourth digit. Improved erythema to the left lateral ankle. Skin temperature gradient is warm to warm from proximal ankles to distal digit with mild focal increase appreciated to the left fourth digit. Neurological: Light touch intact. Patient response to painful stimuli. Dermatological: Full-thickness wound appreciated to the left lateral ankle measuring 0.6 x 0.4 x 0.2 cm. Wound base is fibrogranular nature. Full- thickness wound to the left fourth digit measuring 0.4 x 0.9 x 0.3 cm. Positive probe to bone. Evidence of blanchable erythema. Evidence of full-thickness wound to the left hallux measuring 0.4 x 0.4 x 0.1 cm. Wound base is fibrogranular nature. Excisional debridement down to including subcutaneous tissue of the left hallux full-thickness wound done with a number 3 mm dermal curette without incident. Predebridement measurement was sanguinous crust. Post debridement measurement is 0.4 x 0.4 x 0.1 cm. Excisional debridement down to including subcutaneous tissue of the left lateral ankle full-thickness wound done without incident using a number 3 mm dermal curette. Predebridement measurement was 0.3 x 0.7 x 0.2 cm. Postdebridement measurement is 0.6 x 0.4 x 0.2 cm. Excisional debridement down to including subcutaneous tissue, fascia and muscle and bone of the left fourth digit full-thickness wound done without incident using a number 3 mm dermal curette. Predebridement measurement was eschar. Postdebridement measurement is 0.4 x 0.9 x 0.3 cm. Musculoskeletal: Mild pain to palpation to the full-thickness wound to the lateral left ankle. No pain to palpation to the left fourth digit and great toe. No pain with calf pressure. Debridement Note Debridement Note Debridement Free Text: Excisional debridement down to including subcutaneous tissue of the left hallux full-thickness wound done with a number 3 mm dermal cu rette without incident. Predebridement measurement was sanguinous crust. Post debridement measurement is 0.4 x 0.4 x 0.1 cm. Excisional debridement down to including subcutaneous tissue of the left lateral ankle full-thickness wound done without incident using a number 3 mm dermal curette. Predebridement measurement was 0.3 x 0.7 x 0.2 cm. Postdebridement measurement is 0.6 x 0.4 x 0.2 cm. Excisional debridement down to including subcutaneous tissue, fascia and muscle and bone of the left fourth digit full-thickness wound done without incident using a number 3 mm dermal curette. Predebridement measurement was eschar. Postdebridement measurement is 0.4 x 0.9 x 0.3 cm. Post-Debridement Measurements and Additional Note: Post-Debridement Measurements/Treatment - Nurse 1 - General Ulcer Assessment Start: 02/08/25 08:40 Freq: Status: Active Protocol: DOMINIQUE.LOWEXKatty Activity Type Activity Date Activity User E-sign Co-sign Detail Recorded Client Recorded Date Recorded By Document 02/08/25 08:40 GM [id number] 02/08/25 08:42 GM Document 02/15/25 08:43 KW [id number] 02/15/25 08:56 KW Document 02/22/25 08:47 ML [id number] 02/22/25 08:49 ML 02/08/25 02/15/25 02/22/25 08:40 08:43 08:47 - Today's Visit Information Type of service Follow-up Visit Follow-up Visit Follow-up Visit (Physician/THIRD GRADE TEACHER (Physician/THIRD GRADE TEACHER (Physician/THIRD GRADE TEACHER ) ) ) Arrival Mode Ambulatory Ambulatory Ambulatory Transfer Assistance None None Accompanied by Patient Identification Verified (Name & Yes Yes Yes ) Patient Requires Transmission-Based No No Precautions Vital Signs Temperature (97.8 F-99.1 F) 97.3 F L 97.0 F L 97.0 F L Temperature Source Temporal Temporal Temporal Pulse Rate (60-100) 83 86 85 Pulse Location Monitor Monitor Monitor Respiratory Rate (12-18) 16 18 15 Respiratory rate source Observation Ausculation Observation Oxygen Delivery Method Room Air Blood Pressure (90/60-120/80) 122/82 H 138/83 H 141/85 H Blood Pressure Mean (mm Hg) 95 101 103 Source Monitor Monitor Monitor Position Sitting Semi-Fowlers Sitting Blood Pressure Location Left Arm Right Arm Right Arm History Since Last Visit- (Skip if this is Patient's initial visit) Have you changed medications since your Yes No No last visit? Any new allergies or adverse reactions No No No Had a fall/change in ADL's that may No No No increase risk of falls Signs or symptoms of abuse and/or No No No neglect since last visit Have you been in the hospital since your No No No last visit? Has dressing in place as prescribed Yes Yes Yes Has compression in place as prescribed Yes Yes Yes Has offloadiing in place as prescribed Yes Yes N/A Experienced any changes in pain level or No No No management Left Footwear Regular Shoe Surgical Shoe with pressure relief insole Right Footwear Regular Shoe Pain Scale: 0-10 Numeric Is Patient Pain Free? Yes Yes Yes - Nurse 1 - General Ulcer Measurement Start: 02/08/25 08:40 Freq: Status: Active Protocol: Activity Type Activity Date Activity User E-sign Co-sign Detail Recorded Client Recorded Date Recorded By Document 02/08/25 08:43 GM [id number] 02/08/25 08:47 GM Document 02/15/25 08:43 KW [id number] 02/15/25 08:56 KW Document 02/22/25 08:47 ML [id number] 02/22/25 08:49 ML 02/08/25 02/15/25 02/22/25 08:43 08:43 08:47 Wound Center Nurse 1 #9 left great toe -Current Size (cm) - Length 0.3 0.5 0.1 -Current Size (cm) - Width 0.3 0.4 0.1 -Current Size (cm) - Depth 0.1 0.1 0.1 -Total Square Cm 0.09 0.20 0.01 -Date of Last Picture (Recall this 02/08/25 02/15/25 field) -Photo Taken Yes -Epithelialization None Present -Tunneling No -Undermining/Tunneling No -Circular Undermining No -Exudate Amt None Present Medium None Present -Exudate Type Serosanguineous -Wound Margin Distinct, Distinct, Outline Outline Attached Attached -Granulation Amt Small (1-33%) None Present (0 None Present (0 %) %) -Slough/Fibrin Yes -Necrosis Amt Small (1-33%) Large (67-100%) None Present (0 %) -Necrotic Tissue Type Adherent Slough Adherent Slough -Texture (Gricelda-wound Skin Appearance) Assessed Assessed Assessed -Moisture (Gricelda-wound Skin Appearance) Assessed Assessed Assessed -Color (Gricelda-wound Skin Appearance) Assessed Assessed, Assessed Erythema -Temperature (Gricelda-wound Skin No Abnormality No Abnormality No Abnormality Appearance) (Pt Warm) (Pt Warm) (Pt Warm) -Tenderness on Palpation (Gricelda-wound Yes No No Skin Appearance) -Ulcer Cleansing Soap and Water Rinsed/ Rinsed/ Irrigated with Irrigated with Saline Saline -Foul Odor after Cleansing No No -Anesthetic Used 5% Lidocaine 5% Lidocaine 5% Lidocaine Gel Gel Gel 8-left 4th toe -Current Size (cm) - Length 0.5 0.5 0.4 -Current Size (cm) - Width 0.7 0.9 0.1 -Current Size (cm) - Depth 0.1 0.2 0.1 -Total Square Cm 0.35 0.45 0.04 -Date of Last Picture (Recall this 02/08/25 02/15/25 field) -Photo Taken Yes -Epithelialization Small 1-33% -Tunneling No -Undermining/Tunneling No -Circular Undermining No -Exudate Amt None Present Medium Small -Exudate Type Yellow/Green -Wound Margin Distinct, Thickened Outline Attached -Granulation Amt None Present (0 None Present (0 Small (1-33%) %) %) -Slough/Fibrin No Yes -Necrosis Amt Large (67-100%) Small (1-33%) -Necrotic Tissue Type Adherent Slough Adherent Slough -Texture (Gricelda-wound Skin Appearance) Assessed Assessed, Assessed Localized Edema -Moisture (Gricelda-wound Skin Appearance) Assessed Assessed Assessed -Color (Gricelda-wound Skin Appearance) Assessed Assessed, Assessed Erythema -Temperature (Gricelda-wound Skin No Abnormality No Abnormality No Abnormality Appearance) (Pt Warm) (Pt Warm) (Pt Warm) -Tenderness on Palpation (Gricelda-wound No No Yes Skin Appearance) -Ulcer Cleansing Soap and Water Rinsed/ Rinsed/ Irrigated with Irrigated with Saline Saline -Foul Odor after Cleansing No No -Anesthetic Used 5% Lidocaine 5% Lidocaine 5% Lidocaine Gel Gel Gel #7 LT LAT ANKLE -Current Size (cm) - Length 0.5 0.4 0.2 -Current Size (cm) - Width 0.4 0.3 0.2 -Current Size (cm) - Depth 0.3 0.3 0.4 -Total Square Cm 0.20 0.12 0.04 -Date of Last Picture (Recall this 02/08/25 02/15/25 field) -Photo Taken Yes -Epithelialization None Present -Tunneling No -Undermining/Tunneling No -Circular Undermining No -Exudate Amt None Present Medium Small -Exudate Type Serosanguineous Serosanguineous -Wound Margin Distinct, Thickened & Distinct, Outline Rolled Under Outline Attached Attached -Granulation Amt None Present (0 Medium (34-66%) Small (1-33%) %) -Granulation Quality [place] -Slough/Fibrin No -Necrosis Amt Small (1-33%) Medium (34-66%) Small (1-33%) -Necrotic Tissue Type Adherent Slough Adherent Slough -Texture (Gricelda-wound Skin Appearance) Assessed Assessed, Assessed Localized Edema -Moisture (Gricelda-wound Skin Appearance) Assessed Assessed Assessed -Color (Gricelda-wound Skin Appearance) Assessed Assessed Assessed -Temperature (Gricelda-wound Skin No Abnormality No Abnormality No Abnormality Appearance) (Pt Warm) (Pt Warm) (Pt Warm) -Tenderness on Palpation (Gricelda-wound Yes No Yes Skin Appearance) -Ulcer Cleansing Soap and Water Rinsed/ Rinsed/ Irrigated with Irrigated with Saline Saline -Foul Odor after Cleansing No No -Anesthetic Used 5% Lidocaine 5% Lidocaine 5% Lidocaine Gel Gel Gel Lower Limb Edema Present No Left Calf (cm) 39 38 Left Ankle (cm) 25 24.5 WC - Nurse 2 - General Ulcer CM Notes Start: 02/08/25 08:40 Freq: Status: Active Protocol: Activity Type Activity Date Activity User E-sign Co-sign Detail Recorded Client Recorded Date Recorded By Document 02/08/25 08:55 JF [id number] 02/08/25 09:04 JF Document 02/15/25 09:04 JF [id number] 02/15/25 09:17 JF Document 02/22/25 09:06 DS [id number] 02/22/25 09:15 DS 02/08/25 02/15/25 02/22/25 08:55 09:04 09:06 Wound Center Nurse 2 #9 left great toe -Time 08:57 09:05 09:07 -Correct Patient Yes Yes Yes -Correct Side, Site, Position No Yes Yes -Correct Procedure No Yes Yes -Procedure Performed No Yes Yes -Type of Procedure Debridement Debridement -Clinical Debridement Subcutaneous Subcutaneous -Tissue Removed Subcutaneous Subcutaneous -Post Debridement (cm) - Length 0.5 0.4 -Post Debridement (cm) - Width 0.3 0.4 -Post Debridement (cm) - Depth 0.1 0.1 -Total Square (Post) (cm) 0.15 0.16 -Area of Debridement (cm) - Length 0.5 0.4 -Area of Debridement (cm) - Width 0.3 0.4 -Total Square (Area) (cm) 0.15 0.16 -Tunneling No No No -Undermining/Tunneling No No No -Circular Undermining No No No -Wound/Ulcer Outcome Not Healed Not Healed Not Healed -Ulcer Cleansing Rinsed/ Rinsed/ Rinsed/ Irrigated with Irrigated with Irrigated with Saline Saline Saline -Foul Odor after Cleansing No No No -Bioengineered Tissue No No No -Bleeding Controlled with Pressure Pressure -Treatment Response Procedure Procedure Tolerated Well Tolerated Well -Offloading Yes Yes Yes -Type of Offloading Surgical Shoe Surgical Shoe Darco Shoe - Left -Debridement - Subq, 1st 20sq cm No No No 8-left 4th toe -Time 08:58 09:05 09:07 -Correct Patient Yes Yes Yes -Correct Side, Site, Position Yes Yes Yes -Correct Procedure Yes Yes Yes -Procedure Performed Yes Yes Yes -Type of Procedure Debridement Debridement Debridement -Clinical Debridement Subcutaneous Muscle / Fascia Bone -Tissue Removed Subcutaneous Muscle Muscle,Fascia -Post Debridement (cm) - Length 0.6 0.8 0.4 -Post Debridement (cm) - Width 1.1 0.8 0.9 -Post Debridement (cm) - Depth 0.1 0.3 0.3 -Total Square (Post) (cm) 0.66 0.64 0.36 -Area of Debridement (cm) - Length 0.6 0.8 0.4 -Area of Debridement (cm) - Width 1.1 0.8 0.9 -Total Square (Area) (cm) 0.66 0.64 0.36 -Tunneling No No No -Undermining/Tunneling No No No -Circular Undermining No No No -Wound/Ulcer Outcome Not Healed Not Healed Not Healed -Ulcer Cleansing Rinsed/ Rinsed/ Rinsed/ Irrigated with Irrigated with Irrigated with Saline Saline Saline -Foul Odor after Cleansing No No No -Bioengineered Tissue No No No -Bleeding Controlled with Pressure Pressure Pressure -Treatment Response Procedure Procedure Procedure Tolerated Well Tolerated Well Tolerated Well -Offloading Yes Yes Yes -Type of Offloading Surgical Shoe Surgical Shoe Darco Shoe - Left -Debridement - Subq, 1st 20sq cm No No -Debridement - Muscle / Fascia, 1st Yes 20sq cm -Debridement - Bone, 1st 20sq cm Yes #7 LT LAT ANKLE -Time 08:58 09:06 09:06 -Correct Patient Yes Yes Yes -Correct Side, Site, Position Yes Yes Yes -Correct Procedure Yes Yes Yes -Procedure Performed Yes Yes Yes -Type of Procedure Debridement Debridement Debridement -Clinical Debridement Subcutaneous Subcutaneous Subcutaneous -Tissue Removed Subcutaneous Subcutaneous Subcutaneous -Post Debridement (cm) - Length 0.7 0.7 0.6 -Post Debridement (cm) - Width 0.5 0.3 0.4 -Post Debridement (cm) - Depth 0.3 0.2 0.2 -Total Square (Post) (cm) 0.35 0.21 0.24 -Area of Debridement (cm) - Length 0.7 0.7 0.6 -Area of Debridement (cm) - Width 0.5 0.3 0.4 -Total Square (Area) (cm) 0.35 0.21 0.24 -Tunneling No No No -Undermining/Tunneling No No No -Circular Undermining No No No -Wound/Ulcer Outcome Not Healed Not Healed Not Healed -Ulcer Cleansing Rinsed/ Rinsed/ Rinsed/ Irrigated with Irrigated with Irrigated with Saline Saline Saline -Foul Odor after Cleansing No No No -Bioengineered Tissue No No No -Bleeding Controlled with Pressure Pressure Pressure -Treatment Response Procedure Procedure Procedure Tolerated Well Tolerated Well Tolerated Well -Offloading Yes Yes Yes -Type of Offloading Surgical Shoe Surgical Shoe Darco Shoe - Left -Debridement - Subq, 1st 20sq cm Yes Yes Yes Pain Scale: 0-10 Numeric Is Patient Pain Free? Yes Yes Yes WC - Nurse 3 - General Ulcer D/C NN Start: 02/08/25 08:40 Freq: Status: Active Protocol: Activity Type Activity Date Activity User E-sign Co-sign Detail Recorded Client Recorded Date Recorded By Document 02/08/25 09:22 GM [id number] 02/08/25 09:23 GM Document 02/15/25 09:26 KW [id number] 02/15/25 09:27 KW Document 02/22/25 09:32 ML [id number] 02/22/25 09:33 ML 02/08/25 02/15/25 02/22/25 09:22 09:26 09:32 Wound Care Center Nurse 3 #9 left great toe -Ulcer Cleansing Not Cleansed Rinsed/ Irrigated with Saline -Foul Odor after Cleansing No -Other Dressing betadine betadine -Primary Dressing Covered/Secured with Dry Gauze, Dry Gauze, Dry Gauze, Secured with Secured with Secured with Tape Tape Tape -Other Covering betadine 8-left 4th toe -Ulcer Cleansing Not Cleansed Rinsed/ Irrigated with Saline -Foul Odor after Cleansing No -Other Dressing betadine betadine -Primary Dressing Covered/Secured with Dry Gauze, Dry Gauze, Dry Gauze, Secured with Secured with Secured with Tape Tape Tape -Other Covering betadine #7 LT LAT ANKLE -Ulcer Cleansing Not Cleansed Rinsed/ Irrigated with Saline -Foul Odor after Cleansing No -Other Dressing betadine betadine -Primary Dressing Covered/Secured with Dry Gauze, Dry Gauze & Dry Gauze, Secured with Roll Gauze, Secured with Tape Secured with Tape Tape -Other Covering betadine LLE -Tubular Bandage Single Layer Single Layer -Size of Tubigrip Used Size E Size E -Size E ($) 1 1 Pain Scale: 0-10 Numeric Is Patient Pain Free? Yes Yes Yes WC - Visit Discharge Discharge Condition Stable Stable Ambulatory Status Ambulatory Ambulatory Transportation Private Auto Private Auto Accompanied by Medication Reconcilliation completed & No provided to patient/care provider Clinical Summary of Care Provided Yes Assessment/Plan Assessment/Plan (1) Non-pressure chronic ulcer of other part of left foot with necrosis of bone: CODE(S): L97.524 - Non-pressure chronic ulcer of other part of left foot with necrosis of bone PLAN: Patient was examined and evaluated. All findings were discussed with the patient. All questions were answered to the patient satisfaction. Excisional debridement down to including subcutaneous tissue of the left hallux full-thickness wound done with a number 3 mm dermal curette without incident. Predebridement measurement was sanguinous crust. Post debridement measurement is 0.4 x 0.4 x 0.1 cm. Excisional debridement down to including subcutaneous tissue of the left lateral ankle full-thickness wound done without incident using a number 3 mm dermal curette. Predebridement measurement was 0.3 x 0.7 x 0.2 cm. Postdebridement measurement is 0.6 x 0.4 x 0.2 cm. Excisional debridement down to including subcutaneous tissue, fascia and muscle and bone of the left fourth digit full-thickness wound done without incident using a number 3 mm dermal curette. Predebridement measurement was eschar. Postdebridement measurement is 0.4 x 0.9 x 0.3 cm. The left lower extremities were cleaned and patted dry. Betadine paint was applied to all 3 wounds followed by dry sterile dressing and compression wrap. Patient will continue daily dressing changes. Patient will continue his antibiotics as prescribed. He is currently on Levaquin 500 mg daily. Culture and sensitivity grew Pseudomonas. Patient antibiotics are sensitive to this medication. If the patient is not improving will recommend infectious disease follow-up here at the wound care center next Thursday. Patient will follow-up with Dr. 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
--- NOTE | 2025-02-22 14:00 | WC ---
PHOTO-LEFT ANKLE 02/22/25
--- NOTE | 2025-02-22 14:10 | WC ---
PHOTO-LEFT 4TH TOE 02/22/25
--- NOTE | 2025-02-22 14:14 | WC ---
PHOTO-LEFT HALLUX 02/22/25
[2025-03-01 08:53] VITALS: BP 146/89; PULSE 86; RESP 18; TEMP 36.4
--- NOTE | 2025-03-01 09:48 | PCM.WC.PN ---
History of Present Illness Date of Service: 02/22/25 Chief Complaint: non healing ulcer of left lateral malleolus/ankle History of Wound: Be is a 67-year-old white male with type 2 diabetes and a history of poor healing wounds that presents to the wound center today for evaluation and treatment of a nonhealing ulcer of his left lateral ankle/malleolus that started approximately 4 weeks ago. He thinks that his boot was rubbing the area and then noticed that there was drainage and was treating with a bandaid and antibiotic ointment with no improvement and increased drainage and erythema and swelling and then was seen by his PCP who started him on doxycyline and there was still no improvement so he gave him 1 dose of IM Rocephin and then started him on Cephalexin and Bactrim for which he has been taking almost 10 days of treatment and has 5 more days left of medication. He was then referred to the wound center for treatment. He has been covering the wound with gauze and antibiotic ointment but leaving it open to air when he is at home. He appears to have Charcot of the right foot and a collapsed right arch. He has had vascular testing by Dr. Flores his crystal attacher at the [facility] last year. His last A1C is unknown. He denies fever, chills, increased erythema or drainage and has been taking his antibiotics as instructed. Wound culture 01/09/23 was positive for anaerobic bacteria, Pseudomonas, Enterococcus and Klebsiella. He was started on Augmentin and Ciprofloxacin and completed treatment. He had vascular testing and venous insufficiency not identified. ABIs were WNL and not changed from previous. He had CTA with runoff scheduled on 01/21/23 which showed some areas of stenosis in left leg but there was blood flow to dorsalis pedis artery. He had consultation with vascular surgery on 02/02/[address] Gibson prefers to defer any surgical intervention for now as he does not think there is significant arterial disease in his left leg contributing to his difficulty healing. Progress of Wound: Full-thickness wound to the left hallux, left fourth digit left lateral ankle stable and improving. Currently on antibiotics doing well. 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 Subjective Subjective Patient is a 69-year-old diabetic male presenting to wound care center today follow-up evaluation of multiple full-thickness wound to left lower extremity. Patient has been compliant with dressing changes. He admits improvement to the 3 wounds to left lower extremity. He is following his postoperative instructions for the right foot by an outside provider. He has been off his hydroxyurea and noticed great improvement to the wounds. He is grateful for his care. He is taking the antibiotic as prescribed. Denies trauma. Denies constitutional symptoms. Other pedal complaints at this time. Objective Data Objective Data Vital Signs: Vital Signs Temp Pulse Resp BP O2 Del Method 97.6 F L 86 18 146/89 H Room Air 03/01/25 08:53 03/01/25 08:53 03/01/25 08:53 03/01/25 08:53 03/01/25 08:53 Oxygen Delivery Method Room Air Lab / Micro Data Labs: Laboratory Results - last 24 hr 02/01/25 09:09: POC Glucose 186 H Micro: Microbiology 02/15/25 09:15 Wound - Toe Gram Stain - Final 02/15/25 09:15 Wound - Toe Wound Culture - Final Pseudomonas aeruginosa Corynebacterium minutissimum 02/15/25 09:15 Wound - Toe Anaerobic Culture - Final No anaerobic bacteria isolated. Radiography Diagnostic Testing: Radiology Impression Venous Doppler Study 02/06/25 13:05 Interpretation Summary Deep veins of the lower extremities are bilaterally patent and compressible segmentally. There is no evidence of deep vein thrombosis on either side. Valvular competence appears intact within the proximal deep venous systems bilaterally. The great saphenous veins appear bilaterally patent and compressible segmentally. Sapheno-femoral junctions are bilaterally competent . The right great saphenous vein appears segmentally incompetent. The left great saphenous vein appears incompetent above the knee. The left great saphenous vein appears competent below the knee. Small saphenous veins are patent and competent bilaterally. An incompetent loan officer assistant vein is noted in the right calf, located 15 centimeters proximal to the right medial malleolus. Ordering Physician: Sunny Hyatt Referring Physician: Swapnil Osullivan Performed By: Erika Tierney, RVT Extremity Arterial Study 02/06/25 13:25 Interpretation Summary Triphasic Doppler waveforms are noted at ankle level bilaterally. Pulse-volume recordings appear mildly diminished at ankle and digital levels on the right, but satisfactory at all other levels bilaterally. Resting ankle-brachial indices are normal bilaterally. Digital-brachial indices are normal bilaterally. There is no evidence of significant arterial occlusive disease in the lower extremities bilaterally. Ordering Physician: Sunny Hyatt Referring Physician: Swapnil Osullivan Performed By: ERIKA TIERNEY RVT Physical Exam Narrative Vascular: DP and PT pulse are palpable bilateral. CFT is brisk. Blanchable erythema to the left fourth digit. Improved erythema to the left lateral ankle. Skin temperature gradient is warm to warm from proximal ankles to distal digit with mild focal increase appreciated to the left fourth digit. Neurological: Light touch intact. Patient response to painful stimuli. Dermatological: Full-thickness wound appreciated to the left lateral ankle measuring 0.5 x 0.3 x 0.2 cm. Wound base is fibrogranular nature. Full-thickness wound to the left fourth digit measuring 0.5 x 1.0 x 0.1 cm. Negative probe to bone. Evidence of blanchable erythema. Evidence of full-thickness wound to the left hallux measuring 0.5 x 0.6 x 0.1 cm.. Wound base is fibrogranular nature. Excisional debridement down to including subcutaneous tissue of the left hallux full-thickness wound done with a number 3 mm dermal curette without incident. Predebridement measurement was sanguinous crust. Post debridement measurement is 0.5 x 0.6 x 0.1 cm. Excisional debridement down to including subcutaneous tissue of the left lateral ankle full-thickness wound done without incident using a number 3 mm dermal curette. Predebridement measurement was 0.3 x 0.2 x 0.1 cm. Postdebridement measurement is 0.5 x 0.3 x 0.2 cm. Excisional debridement down to including subcutaneous tissue of the left fourth digit full-thickness wound done without incident using a number 3 mm dermal curette. Predebridement measurement was 0.4 x 0.8 x 0.1 cm. Postdebridement measurement is 0.5 x 1.0 x 0.1 cm. Musculoskeletal: No pain to palpation to the full-thickness wound to the lateral left ankle. No pain to palpation to the left fourth digit and great toe. No pain with calf pressure. Debridement Note Debridement Note Debridement Free Text: Excisional debridement down to including subcutaneous tissue of the left hallux full-thickness wound done with a number 3 mm dermal curette without incident. Predebridement measurement was sanguinous crust. Post debridement measurement is 0.5 x 0.6 x 0.1 cm. Excisional debridement down to including subcutaneous tissue of the left lateral ankle full-thickness wound done without incident using a number 3 mm dermal curette. Predebridement measurement was 0.3 x 0.2 x 0.1 cm. Postdebridement measurement is 0.5 x 0.3 x 0.2 cm. Excisional debridement down to including subcutaneous tissue of the left fourth digit full-thickness wound done without incident using a number 3 mm dermal curette. Predebridement measurement was 0.4 x 0.8 x 0.1 cm. Postdebridement measurement is 0.5 x 1.0 x 0.1 cm. Post-Debridement Measurements and Additional Note: Post-Debridement Measurements/Treatment - Nurse 1 - General Ulcer Assessment Start: 02/08/25 08:40 Freq: Status: Active Protocol: AIXA Activity Type Activity Date Activity User E-sign Co-sign Detail Recorded Client Recorded Date Recorded By Document 02/08/25 08:40 GM [id number] 02/08/25 08:42 GM Document 02/15/25 08:43 KW [id number] 02/15/25 08:56 KW Document 02/22/25 08:47 ML [id number] 02/22/25 08:49 ML Document 03/01/25 08:53 GM [id number] 03/01/25 09:07 GM 08/12/2802/15/25 02/22/25 08:40 08:43 08:47 - Today's Visit Information Type of service Follow-up Visit Follow-up Visit Follow-up Visit (Physician/BUILDING CODE INSPECTOR (Physician/BUILDING CODE INSPECTOR (Physician/BUILDING CODE INSPECTOR ) ) ) Arrival Mode Ambulatory Ambulatory Ambulatory Transfer Assistance None None Accompanied by Patient Identification Verified (Name & Yes Yes Yes ) Patient Requires Transmission-Based No No Precautions Vital Signs Temperature (97.8 F-99.1 F) 97.3 F L 97.0 F L 97.0 F L Temperature Source Temporal Temporal Temporal Pulse Rate (60-100) 83 86 85 Pulse Location Monitor Monitor Monitor Respiratory Rate (12-18) 16 18 15 Respiratory rate source Observation Ausculation Observation Oxygen Delivery Method Room Air Blood Pressure (90/60-120/80) 122/82 H 138/83 H 141/85 H Blood Pressure Mean (mm Hg) 95 101 103 Source Monitor Monitor Monitor Position Sitting Semi-Fowlers Sitting Blood Pressure Location Left Arm Right Arm Right Arm History Since Last Visit- (Skip if this is Patient's initial visit) Have you changed medications since your Yes No No last visit? Any new allergies or adverse reactions No No No Had a fall/change in ADL's that may No No No increase risk of falls Signs or symptoms of abuse and/or No No No neglect since last visit Have you been in the hospital since your No No No last visit? Has dressing in place as prescribed Yes Yes Yes Has compression in place as prescribed Yes Yes Yes Has offloadiing in place as prescribed Yes Yes N/A Experienced any changes in pain level or No No No management Left Footwear Regular Shoe Surgical Shoe with pressure relief insole Right Footwear Regular Shoe Pain Scale: 0-10 Numeric Is Patient Pain Free? Yes Yes Yes 03/01/25 08:53 - Today's Visit Information Type of service Follow-up Visit (Physician/BUILDING CODE INSPECTOR ) Arrival Mode Ambulatory Transfer Assistance None Accompanied by Patient Identification Verified (Name & Yes ) Patient Requires Transmission-Based No Precautions Vital Signs Temperature (97.8 F-99.1 F) 97.6 F L Temperature Source Temporal Pulse Rate (60-100) 86 Pulse Location Monitor Respiratory Rate (12-18) 18 Respiratory rate source Observation Oxygen Delivery Method Room Air Blood Pressure (90/60-120/80) 146/89 H Blood Pressure Mean (mm Hg) 108 Source Monitor Position Sitting Blood Pressure Location Right Arm History Since Last Visit- (Skip if this is Patient's initial visit) Have you changed medications since your No last visit? Any new allergies or adverse reactions No Had a fall/change in ADL's that may No increase risk of falls Signs or symptoms of abuse and/or No neglect since last visit Have you been in the hospital since your No last visit? Has dressing in place as prescribed Yes Has compression in place as prescribed Yes Has offloadiing in place as prescribed Yes Experienced any changes in pain level or No management Left Footwear Surgical Shoe with pressure relief insole Right Footwear Surgical Shoe with pressure relief insole Pain Scale: 0-10 Numeric Is Patient Pain Free? Yes WC - Nurse 1 - General Ulcer Measurement Start: 02/08/25 08:40 Freq: Status: Active Protocol: Activity Type Activity Date Activity User E-sign Co-sign Detail Recorded Client Recorded Date Recorded By Document 02/08/25 08:43 GM [id number] 02/08/25 08:47 GM Document 02/15/25 08:43 KW [id number] 02/15/25 08:56 KW Document 02/22/25 08:47 ML [id number] 02/22/25 08:49 ML Document 03/01/25 08:53 GM [id number] 03/01/25 09:07 GM 02/08/25 02/15/25 02/22/25 08:43 08:43 08:47 Wound Center Nurse 1 #9 left great toe -Current Size (cm) - Length 0.3 0.5 0.1 -Current Size (cm) - Width 0.3 0.4 0.1 -Current Size (cm) - Depth 0.1 0.1 0.1 -Total Square Cm 0.09 0.20 0.01 -Date of Last Picture (Recall this 02/08/25 02/15/25 field) -Photo Taken Yes -Epithelialization None Present -Tunneling No -Undermining/Tunneling No -Circular Undermining No -Exudate Amt None Present Medium None Present -Exudate Type Serosanguineous -Wound Margin Distinct, Distinct, Outline Outline Attached Attached -Granulation Amt Small (1-33%) None Present (0 None Present (0 %) %) -Slough/Fibrin Yes -Necrosis Amt Small (1-33%) Large (67-100%) None Present (0 %) -Necrotic Tissue Type Adherent Slough Adherent Slough -Texture ([place]-wound Skin Appearance) Assessed Assessed Assessed -Moisture ([place]-wound Skin Appearance) Assessed Assessed Assessed -Color ([place]-wound Skin Appearance) Assessed Assessed, Assessed Erythema -Temperature ([place]-wound Skin No Abnormality No Abnormality No Abnormality Appearance) (Pt Warm) (Pt Warm) (Pt Warm) -Tenderness on Palpation ([place]-wound Yes No No Skin Appearance) -Ulcer Cleansing Soap and Water Rinsed/ Rinsed/ Irrigated with Irrigated with Saline Saline -Foul Odor after Cleansing No No -Anesthetic Used 5% Lidocaine 5% Lidocaine 5% Lidocaine Gel Gel Gel 8-left 4th toe -Current Size (cm) - Length 0.5 0.5 0.4 -Current Size (cm) - Width 0.7 0.9 0.1 -Current Size (cm) - Depth 0.1 0.2 0.1 -Total Square Cm 0.35 0.45 0.04 -Date of Last Picture (Recall this 02/08/25 02/15/25 field) -Photo Taken Yes -Epithelialization Small 1-33% -Tunneling No -Undermining/Tunneling No -Circular Undermining No -Exudate Amt None Present Medium Small -Exudate Type Yellow/Green -Wound Margin Distinct, Thickened Outline Attached -Granulation Amt None Present (0 None Present (0 Small (1-33%) %) %) -Slough/Fibrin No Yes -Necrosis Amt Large (67-100%) Small (1-33%) -Necrotic Tissue Type Adherent Slough Adherent Slough -Texture (Gricelda-wound Skin Appearance) Assessed Assessed, Assessed Localized Edema -Moisture ([place]da-wound Skin Appearance) Assessed Assessed Assessed -Color ([place]da-wound Skin Appearance) Assessed Assessed, Assessed Erythema -Temperature ([place]-wound Skin No Abnormality No Abnormality No Abnormality Appearance) (Pt Warm) (Pt Warm) (Pt Warm) -Tenderness on Palpation ([place]da-wound No No Yes Skin Appearance) -Ulcer Cleansing Soap and Water Rinsed/ Rinsed/ Irrigated with Irrigated with Saline Saline -Foul Odor after Cleansing No No -Anesthetic Used 5% Lidocaine 5% Lidocaine 5% Lidocaine Gel Gel Gel #7 LT LAT ANKLE -Current Size (cm) - Length 0.5 0.4 0.2 -Current Size (cm) - Width 0.4 0.3 0.2 -Current Size (cm) - Depth 0.3 0.3 0.4 -Total Square Cm 0.20 0.12 0.04 -Date of Last Picture (Recall this 02/08/25 02/15/25 field) -Photo Taken Yes -Epithelialization None Present -Tunneling No -Undermining/Tunneling No -Circular Undermining No -Exudate Amt None Present Medium Small -Exudate Type Serosanguineous Serosanguineous -Wound Margin Distinct, Thickened & Distinct, Outline Rolled Under Outline Attached Attached -Granulation Amt None Present (0 Medium (34-66%) Small (1-33%) %) -Granulation Quality [place] -Slough/Fibrin No -Necrosis Amt Small (1-33%) Medium (34-66%) Small (1-33%) -Necrotic Tissue Type Adherent Slough Adherent Slough -Texture (Gricelda-wound Skin Appearance) Assessed Assessed, Assessed Localized Edema -Moisture ([place]da-wound Skin Appearance) Assessed Assessed Assessed -Color ([place]da-wound Skin Appearance) Assessed Assessed Assessed -Temperature ([place]da-wound Skin No Abnormality No Abnormality No Abnormality Appearance) (Pt Warm) (Pt Warm) (Pt Warm) -Tenderness on Palpation ([place]elda-wound Yes No Yes Skin Appearance) -Ulcer Cleansing Soap and Water Rinsed/ Rinsed/ Irrigated with Irrigated with Saline Saline -Foul Odor after Cleansing No No -Anesthetic Used 5% Lidocaine 5% Lidocaine 5% Lidocaine Gel Gel Gel Lower Limb Edema Present No Left Calf (cm) 39 38 Left Ankle (cm) 25 24.5 03/01/25 08:53 Wound Center Nurse 1 #9 left great toe -Current Size (cm) - Length 0.3 -Current Size (cm) - Width 0.3 -Current Size (cm) - Depth 0.1 -Total Square Cm 0.09 -Date of Last Picture (Recall this field) -Photo Taken No -Epithelialization Medium 34-66% -Tunneling No -Undermining/Tunneling No -Circular Undermining No -Exudate Amt Small -Exudate Type Yellow/Green -Wound Margin Distinct, Outline Attached -Granulation Amt Small (1-33%) -Slough/Fibrin Yes -Necrosis Amt Medium (34-66%) -Necrotic Tissue Type Adherent Slough -Texture (Gricelda-wound Skin Appearance) Assessed -Moisture ([place]elda-wound Skin Appearance) -Color ([place]da-wound Skin Appearance) Assessed -Temperature ([place]da-wound Skin No Abnormality Appearance) (Pt Warm) -Tenderness on Palpation ([place]da-wound No Skin Appearance) -Ulcer Cleansing Rinsed/ Irrigated with Saline -Foul Odor after Cleansing No -Anesthetic Used 5% Lidocaine Gel 8-left 4th toe -Current Size (cm) - Length 0.5 -Current Size (cm) - Width 0.6 -Current Size (cm) - Depth 0.1 -Total Square Cm 0.30 -Date of Last Picture (Recall this field) -Photo Taken No -Epithelialization Small 1-33% -Tunneling No -Undermining/Tunneling No -Circular Undermining No -Exudate Amt Small -Exudate Type Yellow/Green -Wound Margin Distinct, Outline Attached -Granulation Amt Small (1-33%) -Slough/Fibrin Yes -Necrosis Amt Medium (34-66%) -Necrotic Tissue Type Adherent Slough -Texture (Gricelda-wound Skin Appearance) Assessed -Moisture ([place]ricelda-wound Skin Appearance) -Color ([place]da-wound Skin Appearance) Assessed -Temperature ([place]da-wound Skin No Abnormality Appearance) (Pt Warm) -Tenderness on Palpation ([place]da-wound No Skin Appearance) -Ulcer Cleansing Rinsed/ Irrigated with Saline -Foul Odor after Cleansing No -Anesthetic Used 5% Lidocaine Gel #7 LT LAT ANKLE -Current Size (cm) - Length 0.3 -Current Size (cm) - Width 0.2 -Current Size (cm) - Depth 0.1 -Total Square Cm 0.06 -Date of Last Picture (Recall this field) -Photo Taken No -Epithelialization Small 1-33% -Tunneling No -Undermining/Tunneling No -Circular Undermining No -Exudate Amt Small -Exudate Type Yellow/Green -Wound Margin Distinct, Outline Attached -Granulation Amt Small (1-33%) -Granulation Quality -Slough/Fibrin Yes -Necrosis Amt Medium (34-66%) -Necrotic Tissue Type Adherent Slough -Texture (Gricelda-wound Skin Appearance) Assessed -Moisture ([place]da-wound Skin Appearance) -Color ([place]da-wound Skin Appearance) Assessed -Temperature ([place]da-wound Skin No Abnormality Appearance) (Pt Warm) -Tenderness on Palpation ([place]elda-wound No Skin Appearance) -Ulcer Cleansing Rinsed/ Irrigated with Saline -Foul Odor after Cleansing No -Anesthetic Used 5% Lidocaine Gel Lower Limb Edema Present No Left Calf (cm) 38.5 Left Ankle (cm) 24.7 WC - Nurse 2 - General Ulcer CM Notes Start: 02/08/25 08:40 Freq: Status: Active Protocol: Activity Type Activity Date Activity User E-sign Co-sign Detail Recorded Client Recorded Date Recorded By Document 02/08/25 08:55 JF [id number] 02/08/25 09:04 JF Document 02/15/25 09:04 JF [id number] 02/15/25 09:17 JF Document 02/22/25 09:06 DS [id number] 02/22/25 09:15 DS Document 03/01/25 09:18 JF [id number] 03/01/25 09:24 JF 02/08/25 02/15/25 02/22/25 08:55 09:04 09:06 Wound Center Nurse 2 #9 left great toe -Time 08:57 09:05 09:07 -Correct Patient Yes Yes Yes -Correct Side, Site, Position No Yes Yes -Correct Procedure No Yes Yes -Procedure Performed No Yes Yes -Type of Procedure Debridement Debridement -Clinical Debridement Subcutaneous Subcutaneous -Tissue Removed Subcutaneous Subcutaneous -Post Debridement (cm) - Length 0.5 0.4 -Post Debridement (cm) - Width 0.3 0.4 -Post Debridement (cm) - Depth 0.1 0.1 -Total Square (Post) (cm) 0.15 0.16 -Area of Debridement (cm) - Length 0.5 0.4 -Area of Debridement (cm) - Width 0.3 0.4 -Total Square (Area) (cm) 0.15 0.16 -Tunneling No No No -Undermining/Tunneling No No No -Circular Undermining No No No -Wound/Ulcer Outcome Not Healed Not Healed Not Healed -Ulcer Cleansing Rinsed/ Rinsed/ Rinsed/ Irrigated with Irrigated with Irrigated with Saline Saline Saline -Foul Odor after Cleansing No No No -Bioengineered Tissue No No No -Bleeding Controlled with Pressure Pressure -Treatment Response Procedure Procedure Tolerated Well Tolerated Well -Offloading Yes Yes Yes -Type of Offloading Surgical Shoe Surgical Shoe Darco Shoe - Left -Debridement - Subq, 1st 20sq cm No No No 8-left 4th toe -Time 08:58 09:05 09:07 -Correct Patient Yes Yes Yes -Correct Side, Site, Position Yes Yes Yes -Correct Procedure Yes Yes Yes -Procedure Performed Yes Yes Yes -Type of Procedure Debridement Debridement Debridement -Clinical Debridement Subcutaneous Muscle / Fascia Bone -Tissue Removed Subcutaneous Muscle Muscle,Fascia -Post Debridement (cm) - Length 0.6 0.8 0.4 -Post Debridement (cm) - Width 1.1 0.8 0.9 -Post Debridement (cm) - Depth 0.1 0.3 0.3 -Total Square (Post) (cm) 0.66 0.64 0.36 -Area of Debridement (cm) - Length 0.6 0.8 0.4 -Area of Debridement (cm) - Width 1.1 0.8 0.9 -Total Square (Area) (cm) 0.66 0.64 0.36 -Tunneling No No No -Undermining/Tunneling No No No -Circular Undermining No No No -Wound/Ulcer Outcome Not Healed Not Healed Not Healed -Ulcer Cleansing Rinsed/ Rinsed/ Rinsed/ Irrigated with Irrigated with Irrigated with Saline Saline Saline -Foul Odor after Cleansing No No No -Bioengineered Tissue No No No -Bleeding Controlled with Pressure Pressure Pressure -Treatment Response Procedure Procedure Procedure Tolerated Well Tolerated Well Tolerated Well -Offloading Yes Yes Yes -Type of Offloading Surgical Shoe Surgical Shoe Darco Shoe - Left -Debridement - Subq, 1st 20sq cm No No -Debridement - Muscle / Fascia, 1st Yes 20sq cm -Debridement - Bone, 1st 20sq cm Yes #7 LT LAT ANKLE -Time 08:58 09:06 09:06 -Correct Patient Yes Yes Yes -Correct Side, Site, Position Yes Yes Yes -Correct Procedure Yes Yes Yes -Procedure Performed Yes Yes Yes -Type of Procedure Debridement Debridement Debridement -Clinical Debridement Subcutaneous Subcutaneous Subcutaneous -Tissue Removed Subcutaneous Subcutaneous Subcutaneous -Post Debridement (cm) - Length 0.7 0.7 0.6 -Post Debridement (cm) - Width 0.5 0.3 0.4 -Post Debridement (cm) - Depth 0.3 0.2 0.2 -Total Square (Post) (cm) 0.35 0.21 0.24 -Area of Debridement (cm) - Length 0.7 0.7 0.6 -Area of Debridement (cm) - Width 0.5 0.3 0.4 -Total Square (Area) (cm) 0.35 0.21 0.24 -Tunneling No No No -Undermining/Tunneling No No No -Circular Undermining No No No -Wound/Ulcer Outcome Not Healed Not Healed Not Healed -Ulcer Cleansing Rinsed/ Rinsed/ Rinsed/ Irrigated with Irrigated with Irrigated with Saline Saline Saline -Foul Odor after Cleansing No No No -Bioengineered Tissue No No No -Bleeding Controlled with Pressure Pressure Pressure -Treatment Response Procedure Procedure Procedure Tolerated Well Tolerated Well Tolerated Well -Offloading Yes Yes Yes -Type of Offloading Surgical Shoe Surgical Shoe Darco Shoe - Left -Debridement - Subq, 1st 20sq cm Yes Yes Yes Pain Scale: 0-10 Numeric Is Patient Pain Free? Yes Yes Yes 03/01/25 09:18 Wound Center Nurse 2 #9 left great toe -Time 09:20 -Correct Patient Yes -Correct Side, Site, Position Yes -Correct Procedure Yes -Procedure Performed Yes -Type of Procedure Debridement -Clinical Debridement Subcutaneous -Tissue Removed Subcutaneous -Post Debridement (cm) - Length 0.5 -Post Debridement (cm) - Width 0.6 -Post Debridement (cm) - Depth 0.1 -Total Square (Post) (cm) 0.30 -Area of Debridement (cm) - Length 0.5 -Area of Debridement (cm) - Width 0.6 -Total Square (Area) (cm) 0.30 -Tunneling No -Undermining/Tunneling No -Circular Undermining No -Wound/Ulcer Outcome Not Healed -Ulcer Cleansing Rinsed/ Irrigated with Saline -Foul Odor after Cleansing No -Bioengineered Tissue No -Bleeding Controlled with Pressure -Treatment Response Procedure Tolerated Well -Offloading Yes -Type of Offloading Surgical Shoe -Debridement - Subq, 1st 20sq cm No 8-left 4th toe -Time 09:20 -Correct Patient Yes -Correct Side, Site, Position Yes -Correct Procedure Yes -Procedure Performed Yes -Type of Procedure Debridement -Clinical Debridement Subcutaneous -Tissue Removed Subcutaneous -Post Debridement (cm) - Length 0.5 -Post Debridement (cm) - Width 1 -Post Debridement (cm) - Depth 0.1 -Total Square (Post) (cm) 0.5 -Area of Debridement (cm) - Length 0.5 -Area of Debridement (cm) - Width 1.0 -Total Square (Area) (cm) 0.50 -Tunneling No -Undermining/Tunneling No -Circular Undermining No -Wound/Ulcer Outcome Not Healed -Ulcer Cleansing Rinsed/ Irrigated with Saline -Foul Odor after Cleansing No -Bioengineered Tissue No -Bleeding Controlled with Pressure -Treatment Response Procedure Tolerated Well -Offloading Yes -Type of Offloading Surgical Shoe -Debridement - Subq, 1st 20sq cm No -Debridement - Muscle / Fascia, 1st 20sq cm -Debridement - Bone, 1st 20sq cm #7 LT LAT ANKLE -Time 09:21 -Correct Patient Yes -Correct Side, Site, Position Yes -Correct Procedure Yes -Procedure Performed Yes -Type of Procedure Debridement -Clinical Debridement Subcutaneous -Tissue Removed Subcutaneous -Post Debridement (cm) - Length 0.5 -Post Debridement (cm) - Width 0.3 -Post Debridement (cm) - Depth 0.2 -Total Square (Post) (cm) 0.15 -Area of Debridement (cm) - Length 0.5 -Area of Debridement (cm) - Width 0.3 -Total Square (Area) (cm) 0.15 -Tunneling No -Undermining/Tunneling No -Circular Undermining No -Wound/Ulcer Outcome Not Healed -Ulcer Cleansing Rinsed/ Irrigated with Saline -Foul Odor after Cleansing No -Bioengineered Tissue No -Bleeding Controlled with Pressure -Treatment Response Procedure Tolerated Well -Offloading Yes -Type of Offloading Surgical Shoe -Debridement - Subq, 1st 20sq cm Yes Pain Scale: 0-10 Numeric Is Patient Pain Free? Yes WC - Nurse 3 - General Ulcer D/C NN Start: 02/08/25 08:40 Freq: Status: Active Protocol: Activity Type Activity Date Activity User E-sign Co-sign Detail Recorded Client Recorded Date Recorded By Document 02/08/25 09:22 GM [id number] 02/08/25 09:23 GM Document 02/15/25 09:26 KW [id number] 02/15/25 09:27 KW Document 02/22/25 09:32 ML [id number] 02/22/25 09:33 ML Document 03/01/25 09:30 KW [id number] 03/01/25 09:31 KW 02/08/25 02/15/25 02/22/25 09:22 09:26 09:32 Wound Care Center Nurse 3 #9 left great toe -Ulcer Cleansing Not Cleansed Rinsed/ Irrigated with Saline -Foul Odor after Cleansing No -Other Dressing betadine betadine -Primary Dressing Covered/Secured with Dry Gauze, Dry Gauze, Dry Gauze, Secured with Secured with Secured with Tape Tape Tape -Other Covering betadine 8-left 4th toe -Ulcer Cleansing Not Cleansed Rinsed/ Irrigated with Saline -Foul Odor after Cleansing No -Other Dressing betadine betadine -Primary Dressing Covered/Secured with Dry Gauze, Dry Gauze, Dry Gauze, Secured with Secured with Secured with Tape Tape Tape -Other Covering betadine #7 LT LAT ANKLE -Ulcer Cleansing Not Cleansed Rinsed/ Irrigated with Saline -Foul Odor after Cleansing No -Other Dressing betadine betadine -Primary Dressing Covered/Secured with Dry Gauze, Dry Gauze & Dry Gauze, Secured with Roll Gauze, Secured with Tape Secured with Tape Tape -Other Covering betadine LLE -Tubular Bandage Single Layer Single Layer -Size of Tubigrip Used Size E Size E -Size E ($) 1 1 Pain Scale: 0-10 Numeric Is Patient Pain Free? Yes Yes Yes WC - Visit Discharge Discharge Condition Stable Stable Ambulatory Status Ambulatory Ambulatory Transportation Private Auto Private Auto Accompanied by Medication Reconcilliation completed & No provided to patient/care provider Clinical Summary of Care Provided Yes 03/01/25 09:30 Wound Care Center Nurse 3 #9 left great toe -Ulcer Cleansing -Foul Odor after Cleansing -Other Dressing betadine to all ulcers -Primary Dressing Covered/Secured with Dry Gauze, Secured with Tape -Other Covering 8-left 4th toe -Ulcer Cleansing -Foul Odor after Cleansing -Other Dressing betadine -Primary Dressing Covered/Secured with Dry Gauze, Secured with Tape -Other Covering #7 LT LAT ANKLE -Ulcer Cleansing -Foul Odor after Cleansing -Other Dressing betadine -Primary Dressing Covered/Secured with Dry Gauze, Secured with Tape -Other Covering LLE -Tubular Bandage Single Layer -Size of Tubigrip Used Size E -Size E ($) 1 Pain Scale: 0-10 Numeric Is Patient Pain Free? Yes WC - Visit Discharge Discharge Condition Stable Ambulatory Status Ambulatory Transportation Private Auto Accompanied by Medication Reconcilliation completed & No provided to patient/care provider Clinical Summary of Care Provided Yes Assessment/Plan Assessment/Plan (1) Non-pressure chronic ulcer of left ankle with fat layer exposed: CODE(S): L97.322 - Non-pressure chronic ulcer of left ankle with fat layer exposed PLAN: Patient was examined and evaluated. All findings were discussed with the patient. All questions were answered to the patient satisfaction. Excisional debridement down to including subcutaneous tissue of the left hallux full-thickness wound done with a number 3 mm dermal curette without incident. Predebridement measurement was sanguinous crust. Post debridement measurement is 0.5 x 0.6 x 0.1 cm. Excisional debridement down to including subcutaneous tissue of the left lateral ankle full-thickness wound done without incident using a number 3 mm dermal curette. Predebridement measurement was 0.3 x 0.2 x 0.1 cm. Postdebridement measurement is 0.5 x 0.3 x 0.2 cm. Excisional debridement down to including subcutaneous tissue of the left fourth digit full-thickness wound done without incident using a number 3 mm dermal curette. Predebridement measurement was 0.4 x 0.8 x 0.1 cm. Postdebridement measurement is 0.5 x 1.0 x 0.1 cm. The left lower extremities were cleaned and patted dry. Betadine paint dry sterile dressing compression wrap was donned to left lower extremity. He will continue postoperative care for the right lower extremity. He will take all antibiotics as prescribed. Educated patient continue strict blood sugar control and to check his of the left foot whenever he is doing dressing changes he is understanding of. Patient is grateful for his care Patient will follow-up with Dr. Hyatt in 1 week (2) Non-pressure chronic ulcer of other part of left foot with fat layer exposed: CODE(S): L97.522 - Non-pressure chronic ulcer of other part of left foot with fat layer exposed (3) Other specified peripheral vascular diseases: CODE(S): I73.89 - Other specified peripheral vascular diseases
== END 2025-03-05 23:59 | disposition home or self-care (01) ==
LOC: WC 08:45
PROVIDERS: PCP Family Medicine; Referring Provider Podiatrist Foot & Ankle Surgery; Visit Provider Podiatrist Foot & Ankle Surgery
DX: E11.622 Type 2 diabetes mellitus with other skin ulcer (principal); E11.621 Type 2 diabetes mellitus with foot ulcer; L97.322 Non-pressure chronic ulcer of left ankle with fat layer exposed; L97.522 Non-pressure chronic ulcer of other part of left foot with fat layer exposed; M86.172 Other acute osteomyelitis, left ankle and foot; E11.59 Type 2 diabetes mellitus with other circulatory complications; E11.51 Type 2 diabetes mellitus with diabetic peripheral angiopathy without gangrene; Z91.199 Patient's noncompliance with other medical treatment and regimen due to unspecified reason; M79.89 Other specified soft tissue disorders
CPT/HCPCS: 11042; 11043; 11044; 87070; 87075; 87077; 87186; 87205; 93923; 93970

== ENCOUNTER 2025-03-22 08:30 | Outpatient (RCR) | payer MEDICARE, OTHER, SELFPAY ==
[2025-03-08 08:41] VITALS: BP 134/83; PULSE 89; RESP 16; TEMP 36.3
--- NOTE | 2025-03-08 09:07 | PCM.WC.PN ---
History of Present Illness Date of Service: 03/08/25 Chief Complaint: non healing ulcer of left lateral malleolus/ankle History of Wound: Be is a 67-year-old white male with type 2 diabetes and a history of poor healing wounds that presents to the wound center today for evaluation and treatment of a nonhealing ulcer of his left lateral ankle/malleolus that started approximately 4 weeks ago. He thinks that his boot was rubbing the area and then noticed that there was drainage and was treating with a bandaid and antibiotic ointment with no improvement and increased drainage and erythema and swelling and then was seen by his PCP who started him on doxycyline and there was still no improvement so he gave him 1 dose of IM Rocephin and then started him on Cephalexin and Bactrim for which he has been taking almost 10 days of treatment and has 5 more days left of medication. He was then referred to the wound center for treatment. He has been covering the wound with gauze and antibiotic ointment but leaving it open to air when he is at home. He appears to have Charcot of the right foot and a collapsed right arch. He has had vascular testing by Dr. Flores his construction project assistant at the [facility] last year. His last A1C is unknown. He denies fever, chills, increased erythema or drainage and has been taking his antibiotics as instructed. Wound culture 01/09/23 was positive for anaerobic bacteria, Pseudomonas, Enterococcus and Klebsiella. He was started on Augmentin and Ciprofloxacin and completed treatment. He had vascular testing and venous insufficiency not identified. ABIs were WNL and not changed from previous. He had CTA with runoff scheduled on 01/21/23 which showed some areas of stenosis in left leg but there was blood flow to dorsalis pedis artery. He had consultation with vascular surgery on 02/02/[address] Gibson prefers to defer any surgical intervention for now as he does not think there is significant arterial disease in his left leg contributing to his difficulty healing. Progress of Wound: Stable full-thickness wound to the left hallux, fourth digit and lateral ankle, left lower extremity Subjective Subjective Patient is a 69-year-old diabetic male presenting to wound care center today for follow-up evaluation of full-thickness wound to the left lower extremity hallux, fourth digit and lateral ankle. Patient has been compliant with dressing changes. His blood sugars well-controlled. 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 Patient has been doing well and denies any pain to the by the lower extremity. He denies trauma. Denies constitutional symptoms. No other pedal complaints at this time. Objective Data Objective Data Vital Signs: Vital Signs Temp Pulse Resp BP O2 Del Method 97.3 F L 89 16 134/83 H Room Air 03/08/25 08:41 03/08/25 08:41 03/08/25 08:41 03/08/25 08:41 03/08/25 08:41 Oxygen Delivery Method Room Air Lab / Micro Data Labs: Laboratory Results - last 24 hr 02/01/25 09:09: POC Glucose 186 H Micro: Microbiology 02/15/25 09:15 Wound - Toe Gram Stain - Final 02/15/25 09:15 Wound - Toe Wound Culture - Final Pseudomonas aeruginosa Corynebacterium minutissimum 02/15/25 09:15 Wound - Toe Anaerobic Culture - Final No anaerobic bacteria isolated. Radiography Diagnostic Testing: Radiology Impression Venous Doppler Study 02/06/25 13:05 Interpretation Summary Deep veins of the lower extremities are bilaterally patent and compressible segmentally. There is no evidence of deep vein thrombosis on either side. Valvular competence appears intact within the proximal deep venous systems bilaterally. The great saphenous veins appear bilaterally patent and compressible segmentally. Sapheno-femoral junctions are bilaterally competent . The right great saphenous vein appears segmentally incompetent. The left great saphenous vein appears incompetent above the knee. The left great saphenous vein appears competent below the knee. Small saphenous veins are patent and competent bilaterally. 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 Ordering Physician: Sunny Hyatt Referring Physician: Swapnil Osullivan Performed By: Erika Tierney RVT Extremity Arterial Study 02/06/25 13:25 Interpretation Summary Triphasic Doppler waveforms are noted at ankle level bilaterally. Pulse-volume recordings appear mildly diminished at ankle and digital levels on the right, but satisfactory at all other levels bilaterally. Resting ankle-brachial indices are normal bilaterally. Digital-brachial indices are normal bilaterally. There is no evidence of significant arterial occlusive disease in the lower extremities bilaterally. Ordering Physician: Sunny Hyatt Referring Physician: Swapnil Osullivan Performed By: ERIKA TIERNEY RVT Physical Exam Narrative Vascular: DP and PT pulses are palpable to the bilateral lower extremity. CFT is brisk. Improved erythema appreciated to the left hallux, fourth digit and lateral ankle. Skin temp great is warm to warm from proximal ankle to distal digit. No focal increase is appreciated. Neurological: Light touch intact. Patient response to painful stimuli. Dermatological: Full-thickness wound appreciated to the left lateral ankle measuring 0.5 x 0.2 x 0.2 cm. Wound base is fibrogranular nature. Full-thickness wound to the left fourth digit measuring 0.5 x 0.7 x 0.3 cm. Positive probe to bone secondary to debridement no erythema. Evidence of full-thickness wound to the left hallux measuring 0.5 x 0.5 x 0.1 cm. Wound base is fibrogranular nature. Excisional debridement down to including subcutaneous tissue of the left hallux full-thickness wound done with a number 3 mm dermal curette without incident. Predebridement measurement was 0.4 x 0.3 x 0.1 cm.. Post debridement measurement is 0.5 x 0.5 x 0.1 cm. Excisional debridement down to including subcutaneous tissue of the left lateral ankle full-thickness wound done without incident using a number 3 mm dermal curette. Predebridement measurement was 0.3 x 0.2 x 0.1 cm. Postdebridement measurement is 0.5 x 0.2 x 0.2 cm. Excisional debridement down to including subcutaneous tissue, fascia muscle and bone of the left fourth digit full-thickness wound done without incident using a number 3 mm dermal curette as well as rongeur. Predebridement measurement was 0.4 x 0.5 x 0.1 cm. Postdebridement measurement is 0.5 x 0.7 x 0.3 cm. Musculoskeletal: No pain to palpation to the full-thickness wound to the lateral left ankle. No pain to palpation to the left fourth digit and great toe. No pain with calf pressure. Debridement Note Debridement Note Debridement Free Text: Excisional debridement down to including subcutaneous tissue of the left hallux full-thickness wound done with a number 3 mm dermal curette without incident. Predebridement measurement was 0.4 x 0.3 x 0.1 cm.. Post debridement measurement is 0.5 x 0.5 x 0.1 cm. Excisional debridement down to including subcutaneous tissue of the left lateral ankle full-thickness wound done without incident using a number 3 mm dermal curette. Predebridement measurement was 0.3 x 0.2 x 0.1 cm. Postdebridement measurement is 0.5 x 0.2 x 0.2 cm. Excisional debridement down to including subcutaneous tissue, fascia muscle and bone of the left fourth digit full-thickness wound done without incident using a number 3 mm dermal curette as well as rongeur. Predebridement measurement was 0.4 x 0.5 x 0.1 cm. Postdebridement measurement is 0.5 x 0.7 x 0.3 cm. Post-Debridement Measurements and Additional Note: Post-Debridement Measurements/Treatment [facility] Nurse 1 - General Ulcer Assessment Start: 03/08/25 08:28 Freq: Status: Active Protocol: DOMINIQUE.LOWRAMIREZT Activity Type Activity Date Activity User E-sign Co-sign Detail Recorded Client Recorded Date Recorded By Document 03/08/25 08:41 [id number] 03/08/25 08:46 03/08/25 08:41 - Today's Visit Information Type of service Follow-up Visit (Physician/MANAGER PATIENT ) Arrival Mode Ambulatory Patient Identification Verified (Name & Yes ) Vital Signs Temperature (97.8 F-99.1 F) 97.3 F L Temperature Source Temporal Pulse Rate (60-100) 89 Pulse Location Monitor Respiratory Rate (12-18) 16 Respiratory rate source Ausculation Oxygen Delivery Method Room Air Blood Pressure (90/60-120/80) 134/83 H Blood Pressure Mean (mm Hg) 100 Source Monitor Position Sitting Blood Pressure Location Right Arm History Since Last Visit- (Skip if this is Patient's initial visit) Have you changed medications since your No last visit? Any new allergies or adverse reactions No Had a fall/change in ADL's that may No increase risk of falls Signs or symptoms of abuse and/or No neglect since last visit Have you been in the hospital since your No last visit? Has dressing in place as prescribed Yes Has compression in place as prescribed Yes Has offloadiing in place as prescribed Yes Experienced any changes in pain level or No management Left Footwear Surgical Shoe with pressure relief insole Right Footwear Surgical Shoe with pressure relief insole Pain Scale: 0-10 Numeric Is Patient Pain Free? Yes WC - Nurse 1 - General Ulcer Measurement Start: 03/08/25 08:28 Freq: Status: Active Protocol: Activity Type Activity Date Activity User E-sign Co-sign Detail Recorded Client Recorded Date Recorded By Document 03/08/25 08:41 [id number] 03/08/25 08:46 03/08/25 08:41 Wound Center Nurse 1 #9 left great toe -Current Size (cm) - Length 0.5 -Current Size (cm) - Width 0.5 -Current Size (cm) - Depth 0.1 -Total Square Cm 0.25 -Date of Last Picture (Recall this 03/08/25 field) -Photo Taken Yes -Epithelialization Small 1-33% -Tunneling No -Undermining/Tunneling No -Circular Undermining No -Exudate Amt None Present -Wound Margin Distinct, Outline Attached -Granulation Amt Small (1-33%) -Necrosis Amt Small (1-33%) -Texture (Gricelda-wound Skin Appearance) Assessed -Moisture (Gricelda-wound Skin Appearance) Assessed -Color (Gricelda-wound Skin Appearance) Assessed -Temperature (Gricelda-wound Skin No Abnormality Appearance) (Pt Warm) -Tenderness on Palpation (Gricelda-wound No Skin Appearance) -Ulcer Cleansing Soap and Water -Foul Odor after Cleansing No -Anesthetic Used 5% Lidocaine Gel 8-left 4th toe -Current Size (cm) - Length 0.4 -Current Size (cm) - Width 0.8 -Current Size (cm) - Depth 0.1 -Total Square Cm 0.32 -Date of Last Picture (Recall this 03/08/25 field) -Photo Taken Yes -Epithelialization Small 1-33% -Tunneling No -Undermining/Tunneling No -Circular Undermining No -Exudate Amt None Present -Wound Margin Distinct, Outline Attached -Granulation Amt Small (1-33%) -Granulation Quality Arrington -Slough/Fibrin No -Texture (Gricelda-wound Skin Appearance) Assessed -Moisture (Gricelda-wound Skin Appearance) Assessed -Color (Gricelda-wound Skin Appearance) Assessed -Temperature (Gricelda-wound Skin No Abnormality Appearance) (Pt Warm) -Tenderness on Palpation (Gricelda-wound No Skin Appearance) -Ulcer Cleansing Soap and Water -Foul Odor after Cleansing No -Anesthetic Used 5% Lidocaine Gel #7 LT LAT ANKLE -Current Size (cm) - Length 0.3 -Current Size (cm) - Width 0.1 -Current Size (cm) - Depth 0.5 -Total Square Cm 0.03 -Date of Last Picture (Recall this 03/08/25 field) -Photo Taken Yes -Epithelialization Small 1-33% -Tunneling No -Undermining/Tunneling No -Circular Undermining No -Exudate Amt None Present -Wound Margin Distinct, Outline Attached -Granulation Amt Small (1-33%) -Slough/Fibrin No -Necrosis Amt None Present (0 %) -Texture (Gricelda-wound Skin Appearance) Assessed -Moisture (Gricelda-wound Skin Appearance) Assessed -Color (Gricelda-wound Skin Appearance) Assessed -Temperature (Gricelda-wound Skin No Abnormality Appearance) (Pt Warm) -Tenderness on Palpation (Gricelda-wound No Skin Appearance) -Ulcer Cleansing Soap and Water -Foul Odor after Cleansing No -Anesthetic Used 5% Lidocaine Gel Lower Limb Edema Present No Left Calf (cm) 38.5 Left Ankle (cm) 24.5 WC - Nurse 2 - General Ulcer CM Notes Start: 03/08/25 08:28 Freq: Status: Active Protocol: Activity Type Activity Date Activity User E-sign Co-sign Detail Recorded Client Recorded Date Recorded By Document 03/08/25 08:53 MONICO [id number] 03/08/25 09:02 JF 03/08/25 08:53 Wound Center Nurse 2 #9 left great toe -Time 08:54 -Correct Patient Yes -Correct Side, Site, Position Yes -Correct Procedure Yes -Procedure Performed Yes -Type of Procedure Debridement -Clinical Debridement Subcutaneous -Tissue Removed Subcutaneous -Post Debridement (cm) - Length 0.5 -Post Debridement (cm) - Width 0.5 -Post Debridement (cm) - Depth 0.1 -Total Square (Post) (cm) 0.25 -Area of Debridement (cm) - Length 0.5 -Area of Debridement (cm) - Width 0.5 -Total Square (Area) (cm) 0.25 -Tunneling No -Undermining/Tunneling No -Circular Undermining No -Wound/Ulcer Outcome Not Healed -Ulcer Cleansing Rinsed/ Irrigated with Saline -Foul Odor after Cleansing No -Bioengineered Tissue No -Bleeding Controlled with Pressure -Treatment Response Procedure Tolerated Well -Offloading Yes -Type of Offloading Surgical Shoe -Debridement - Subq, 1st 20sq cm Yes 8-left 4th toe -Time 08:54 -Correct Patient Yes -Correct Side, Site, Position Yes -Correct Procedure Yes -Procedure Performed Yes -Type of Procedure Debridement -Clinical Debridement Bone -Tissue Removed Non-viable tissue -Post Debridement (cm) - Length 0.5 -Post Debridement (cm) - Width 0.7 -Post Debridement (cm) - Depth 0.3 -Total Square (Post) (cm) 0.35 -Area of Debridement (cm) - Length 0.5 -Area of Debridement (cm) - Width 0.7 -Total Square (Area) (cm) 0.35 -Tunneling No -Undermining/Tunneling No -Circular Undermining No -Wound/Ulcer Outcome Not Healed -Ulcer Cleansing Rinsed/ Irrigated with Saline -Foul Odor after Cleansing No -Bioengineered Tissue No -Bleeding Controlled with Pressure -Treatment Response Procedure Tolerated Well -Offloading Yes -Type of Offloading Surgical Shoe -Debridement - Subq, 1st 20sq cm No -Debridement - Bone, 1st 20sq cm Yes #7 LT LAT ANKLE -Time 08:55 -Correct Patient Yes -Correct Side, Site, Position Yes -Correct Procedure Yes -Procedure Performed Yes -Type of Procedure Debridement -Clinical Debridement Subcutaneous -Tissue Removed Subcutaneous -Post Debridement (cm) - Length 0.5 -Post Debridement (cm) - Width 0.2 -Post Debridement (cm) - Depth 0.2 -Total Square (Post) (cm) 0.10 -Area of Debridement (cm) - Length 0.5 -Area of Debridement (cm) - Width 0.2 -Total Square (Area) (cm) 0.10 -Tunneling No -Undermining/Tunneling No -Circular Undermining No -Wound/Ulcer Outcome Not Healed -Ulcer Cleansing Rinsed/ Irrigated with Saline -Foul Odor after Cleansing No -Bioengineered Tissue No -Bleeding Controlled with Pressure -Treatment Response Procedure Tolerated Well -Offloading Yes -Type of Offloading Surgical Shoe -Debridement - Subq, 1st 20sq cm No Pain Scale: 0-10 Numeric Is Patient Pain Free? Yes Assessment/Plan Assessment/Plan (1) Non-pressure chronic ulcer of left ankle with fat layer exposed: CODE(S): L97.322 - Non-pressure chronic ulcer of left ankle with fat layer exposed PLAN: Patient was examined and evaluated. All findings were discussed with the patient. All questions were answered to the patient satisfaction. Excisional debridement down to including subcutaneous tissue of the left hallux full-thickness wound done with a number 3 mm dermal curette without incident. Predebridement measurement was 0.4 x 0.3 x 0.1 cm.. Post debridement measurement is 0.5 x 0.5 x 0.1 cm. Excisional debridement down to including subcutaneous tissue of the left lateral ankle full-thickness wound done without incident using a number 3 mm dermal curette. Predebridement measurement was 0.3 x 0.2 x 0.1 cm. Postdebridement measurement is 0.5 x 0.2 x 0.2 cm. Excisional debridement down to including subcutaneous tissue, fascia muscle and bone of the left fourth digit full-thickness wound done without incident using a number 3 mm dermal curette as well as rongeur. Predebridement measurement was 0.4 x 0.5 x 0.1 cm. Postdebridement measurement is 0.5 x 0.7 x 0.3 cm. The left lower extremities were cleaned and patted dry. Moist Zohreh was applied to the full-thickness wound to the hallux followed by Betadine paint to the left fourth digit and lateral ankle. Everything was covered with dry sterile dressing and compression wrap was donned to left lower extremity. Patient will continue daily dressing changes as discussed. Patient is to maintain strict blood sugar control which she has been doing well. Educated patient on signs symptoms of infection especially to the fourth toe due to bone debridement during today's clinic. Patient states that he is understanding will reach out to me if there is any concerns. Patient will follow-up with Dr. Hyatt in 1 week (2) Non-pressure chronic ulcer of other part of left foot with fat layer exposed: CODE(S): L97.522 - Non-pressure chronic ulcer of other part of left foot with fat layer exposed (3) Other specified peripheral vascular diseases: CODE(S): I73.89 - Other specified peripheral vascular diseases (4) Non-pressure chronic ulcer of other part of left foot with bone involvement without evidence of necrosis: CODE(S): L97.526 - Non-pressure chronic ulcer of other part of left foot with bone involvement without evidence of necrosis
--- NOTE | 2025-03-09 09:12 | WC ---
PHOTO- LEFT HALLUX 03/08/25
--- NOTE | 2025-03-09 09:15 | WC ---
PHOTO- LEFT 4TH TOE 03/08/25
--- NOTE | 2025-03-09 09:17 | WC ---
PHOTO- LEFT 4TH TOE 03/08/25
--- NOTE | 2025-03-09 09:20 | WC ---
PHOTO- LEFT ANKLE 03/08/25
[2025-03-15 08:25] VITALS: BP 144/91; PULSE 84; RESP 18; TEMP 36.4
--- NOTE | 2025-03-15 09:02 | PN.PCM_ITS ---
History of Present Illness Date of Service: 03/15/25 Chief Complaint: non healing ulcer of left lateral malleolus/ankle History of Wound: Be is a 67-year-old white male with type 2 diabetes and a history of poor healing wounds that presents to the wound center today for evaluation and treatment of a nonhealing ulcer of his left lateral ankle/malleolus that started approximately 4 weeks ago. He thinks that his boot was rubbing the area and then noticed that there was drainage and was treating with a bandaid and antibiotic ointment with no improvement and increased drainage and erythema and swelling and then was seen by his PCP who started him on doxycyline and there was still no improvement so he gave him 1 dose of IM Rocephin and then started him on Cephalexin and Bactrim for which he has been taking almost 10 days of treatment and has 5 more days left of medication. He was then referred to the wound center for treatment. He has been covering the wound with gauze and antibiotic ointment but leaving it open to air when he is at home. He appears to have Charcot of the right foot and a collapsed right arch. He has had vascular testing by Dr. 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 His last A1C is unknown. He denies fever, chills, increased erythema or drainage and has been taking his antibiotics as instructed. Wound culture 01/09/23 was positive for anaerobic bacteria, Pseudomonas, Enterococcus and Klebsiella. He was started on Augmentin and Ciprofloxacin and completed treatment. He had vascular testing and venous insufficiency not identified. ABIs were WNL and not changed from previous. He had CTA with runoff scheduled on 01/21/23 which showed some areas of stenosis in left leg but there was blood flow to dorsalis pedis artery. He had consultation with vascular surgery on 02/02/[address] Gibson prefers to defer any surgical intervention for now as he does not think there is significant arterial disease in his left leg contributing to his difficulty healing. Progress of Wound: Stable full-thickness wound to the left hallux, fourth digit and lateral ankle, left lower extremity Subjective Subjective Patient is a 69-year-old diabetic male presenting to wound care center today for follow-up evaluation of full-thickness wound to the left hallux, fourth digit and lateral ankle. Patient has been compliant with dressing changes. His most recent blood sugar was 144 mg/dL. He did have stitches removed by his outside provider to the right fourth digit secondary to amputation. Overall the patient is doing well. He denies any trauma. Denies constitutional symptoms. No other pedal complaints at this time. Objective Data Objective Data Vital Signs: Vital Signs Temp Pulse Resp BP O2 Del Method 97.6 F L 84 18 144/91 H Room Air 03/15/25 08:03/15/25 08:03/15/25 08:03/15/25 08:03/15/25 08:25 Oxygen Delivery Method Room Air Lab / Micro Data Labs: Laboratory Results - last 24 hr 02/01/25 09:09: POC Glucose 186 H Micro: Microbiology 02/15/25 09:15 Wound - Toe Gram Stain - Final 02/15/25 09:15 Wound - Toe Wound Culture - Final Pseudomonas aeruginosa Corynebacterium minutissimum 02/15/25 09:15 Wound - Toe Anaerobic Culture - Final No anaerobic bacteria isolated. Radiography Diagnostic Testing: Radiology Impression Venous Doppler Study 02/06/25 13:05 Interpretation Summary Deep veins of the lower extremities are bilaterally patent and compressible segmentally. There is no evidence of deep vein thrombosis on either side. Valvular competence appears intact within the proximal deep venous systems bilaterally. The great saphenous veins appear bilaterally patent and compressible segmentally. Sapheno-femoral junctions are bilaterally competent . The right great saphenous vein appears segmentally incompetent. The left great saphenous vein appears incompetent above the knee. The left great saphenous vein appears competent below the knee. Small saphenous veins are patent and competent bilaterally. An incompetent legal advisor vein is noted in the right calf, located 15 centimeters proximal to the right medial malleolus. Ordering Physician: Sunny Hyatt Referring Physician: Swapnil Osullivan Performed By: Erika Tierney RVT Extremity Arterial Study 02/06/25 13:25 Interpretation Summary Triphasic Doppler waveforms are noted at ankle level bilaterally. Pulse-volume recordings appear mildly diminished at ankle and digital levels on the right, but satisfactory at all other levels bilaterally. Resting ankle-brachial indices are normal bilaterally. Digital-brachial indices are normal bilaterally. There is no evidence of significant arterial occlusive disease in the lower extremities bilaterally. Ordering Physician: Sunny Hyatt Referring Physician: Swapnil Osullivan Performed By: ERIKA TIERNEY RVT Physical Exam Narrative Vascular: DP and PT pulses are palpable to the bilateral lower extremity. CFT is brisk. Improved erythema appreciated to the left hallux, fourth digit and lateral ankle. Skin temp great is warm to warm from proximal ankle to distal digit. No focal increase is appreciated. Neurological: Light touch intact. Patient response to painful stimuli. Dermatological: Full-thickness wound appreciated to the left lateral ankle measuring 0.5 x 0.2 x 0.2 cm. Wound base is fibrogranular nature. Full- thickness wound to the left fourth digit measuring 0.5 x 0.7 x 0.3 cm. Positive probe to bone secondary to debridement no erythema. Evidence of full-thickness wound to the left hallux measuring 0.5 x 0.5 x 0.1 cm. Wound base is fibrogranular nature. Excisional debridement down to including subcutaneous tissue of the left hallux full-thickness wound done with a number 3 mm dermal curette without incident. Predebridement measurement was 0.4 x 0.3 x 0.1 cm.. Post debridement measurement is 0.5 x 0.5 x 0.1 cm. Excisional debridement down to including subcutaneous tissue of the left lateral ankle full-thickness wound done without incident using a number 3 mm dermal curette. Predebridement measurement was 0.3 x 0.2 x 0.1 cm. Postdebridement measurement is 0.5 x 0.2 x 0.2 cm. Excisional debridement down to including subcutaneous tissue, fascia muscle and bone of the left fourth digit full-thickness wound done without incident using a number 3 mm dermal curette as well as rongeur. Predebridement measurement was 0.4 x 0.5 x 0.1 cm. Postdebridement measurement is 0.5 x 0.7 x 0.3 cm. Musculoskeletal: No pain to palpation to the full-thickness wound to the lateral left ankle. No pain to palpation to the left fourth digit and great toe. No pain with calf pressure. Debridement Note Debridement Note Debridement Free Text: Excisional debridement down to including subcutaneous tissue of the left hallux full-thickness wound done with a number 3 mm dermal curette without incident. Predebridement measurement was 0.4 x 0.3 x 0.1 cm.. Post debridement measurement is 0.5 x 0.5 x 0.1 cm. Excisional debridement down to including subcutaneous tissue of the left lateral ankle full-thickness wound done without incident using a number 3 mm dermal curette. Predebridement measurement was 0.3 x 0.2 x 0.1 cm. Postdebridement measurement is 0.5 x 0.2 x 0.2 cm. Excisional debridement down to including subcutaneous tissue, fascia muscle and bone of the left fourth digit full-thickness wound done without incident using a number 3 mm dermal curette as well as rongeur. Predebridement measurement was 0.4 x 0.5 x 0.1 cm. Postdebridement measurement is 0.5 x 0.7 x 0.3 cm. Post-Debridement Measurements and Additional Note: Post-Debridement Measurements/Treatment - Nurse 1 - General Ulcer Assessment Start: 03/08/25 08:28 Freq: Status: Active Protocol: DOMINIQUE.LOWEXKatty Activity Type Activity Date Activity User E-sign Co-sign Detail Recorded Client Recorded Date Recorded By Document 03/08/25 08:41 [id number] 03/08/25 08:46 Document 03/15/25 08:25 KW [id number] 03/15/25 08:38 KW 03/08/25 03/15/25 08:41 08:25 - Today's Visit Information Type of service Follow-up Visit Follow-up Visit (Physician/EMERGENCY MANAGEMENT COORDINATOR (Physician/EMERGENCY MANAGEMENT COORDINATOR ) ) Arrival Mode Ambulatory Ambulatory Accompanied by Patient Identification Verified (Name & Yes Yes ) Vital Signs Temperature (97.8 F-99.1 F) 97.3 F L 97.6 F L Temperature Source Temporal Temporal Pulse Rate (60-100) 89 84 Pulse Location Monitor Monitor Respiratory Rate (12-18) 16 18 Respiratory rate source Ausculation Observation Oxygen Delivery Method Room Air Room Air Blood Pressure (90/60-120/80) 134/83 H 144/91 H Blood Pressure Mean (mm Hg) 100 108 Source Monitor Monitor Position Sitting Semi-Fowlers Blood Pressure Location Right Arm Left Arm History Since Last Visit- (Skip if this is Patient's initial visit) Have you changed medications since your No No last visit? Any new allergies or adverse reactions No No Had a fall/change in ADL's that may No No increase risk of falls Signs or symptoms of abuse and/or No No neglect since last visit Have you been in the hospital since your No No last visit? Has dressing in place as prescribed Yes Yes Has compression in place as prescribed Yes Yes Has offloadiing in place as prescribed Yes Yes Experienced any changes in pain level or No No management Left Footwear Surgical Shoe Surgical Shoe with pressure with pressure relief insole relief insole Right Footwear Surgical Shoe Regular Shoe with pressure relief insole Pain Scale: 0-10 Numeric Is Patient Pain Free? Yes Yes WC - Nurse 1 - General Ulcer Measurement Start: 03/08/25 08:28 Freq: Status: Active Protocol: Activity Type Activity Date Activity User E-sign Co-sign Detail Recorded Client Recorded Date Recorded By Document 03/08/25 08:41 [id number] 03/08/25 08:46 Document 03/15/25 08:25 [id number] 03/15/25 08:38 03/08/25 03/15/25 08:41 08:25 Wound Center Nurse 1 #9 left great toe -Current Size (cm) - Length 0.5 -Current Size (cm) - Width 0.5 -Current Size (cm) - Depth 0.1 -Total Square Cm 0.25 -Date of Last Picture (Recall this 03/08/25 field) -Photo Taken Yes -Epithelialization Small 1-33% -Tunneling No -Undermining/Tunneling No -Circular Undermining No -Exudate Amt None Present Small -Exudate Type Serosanguineous -Wound Margin Distinct, Distinct, Outline Outline Attached Attached -Granulation Amt Small (1-33%) Small (1-33%) -Granulation Quality [place] -Necrosis Amt Small (1-33%) Large (67-100%) -Necrotic Tissue Type Adherent Slough -Texture (Gricelda-wound Skin Appearance) Assessed Assessed -Moisture (Gricelda-wound Skin Appearance) Assessed Assessed -Color ([place]ric[place]da-wound Skin Appearance) Assessed Assessed -Temperature ([place]-wound Skin No Abnormality No Abnormality Appearance) (Pt Warm) (Pt Warm) -Tenderness on Palpation (Gricelda-wound No No Skin Appearance) -Ulcer Cleansing Soap and Water Rinsed/ Irrigated with Saline -Foul Odor after Cleansing No No -Anesthetic Used 5% Lidocaine 5% Lidocaine Gel Gel 8-left 4th toe -Current Size (cm) - Length 0.4 -Current Size (cm) - Width 0.8 -Current Size (cm) - Depth 0.1 -Total Square Cm 0.32 -Date of Last Picture (Recall this 03/08/25 field) -Photo Taken Yes -Epithelialization Small 1-33% -Tunneling No -Undermining/Tunneling No -Circular Undermining No -Exudate Amt None Present Medium -Exudate Type Serosanguineous -Wound Margin Distinct, Distinct, Outline Outline Attached Attached -Granulation Amt Small (1-33%) -Granulation Quality [place] -Slough/Fibrin No -Necrosis Amt Medium (34-66%) -Necrotic Tissue Type Adherent Slough -Texture (Gricelda-wound Skin Appearance) Assessed Assessed -Moisture ([place]ricelda-wound Skin Appearance) Assessed Assessed -Color ([place]ricelda-wound Skin Appearance) Assessed Assessed -Temperature ([place]-wound Skin No Abnormality No Abnormality Appearance) (Pt Warm) (Pt Warm) -Tenderness on Palpation (Gricelda-wound No No Skin Appearance) -Ulcer Cleansing Soap and Water Rinsed/ Irrigated with Saline -Foul Odor after Cleansing No No -Anesthetic Used 5% Lidocaine 5% Lidocaine Gel Gel #7 LT LAT ANKLE -Current Size (cm) - Length 0.3 0.2 -Current Size (cm) - Width 0.1 0.3 -Current Size (cm) - Depth 0.5 0.5 -Total Square Cm 0.03 0.06 -Date of Last Picture (Recall this 03/08/25 03/15/25 field) -Photo Taken Yes -Epithelialization Small 1-33% -Tunneling No -Undermining/Tunneling No -Circular Undermining No -Exudate Amt None Present Medium -Exudate Type Serosanguineous -Wound Margin Distinct, Thickened Outline Attached -Granulation Amt Small (1-33%) Small (1-33%) -Granulation Quality [place] -Slough/Fibrin No -Necrosis Amt None Present (0 Small (1-33%) %) -Necrotic Tissue Type Adherent Slough -Texture (Gricelda-wound Skin Appearance) Assessed Assessed -Moisture (Gricelda-wound Skin Appearance) Assessed Assessed -Color ([place]da-wound Skin Appearance) Assessed Assessed -Temperature ([place]da-wound Skin No Abnormality No Abnormality Appearance) (Pt Warm) (Pt Warm) -Tenderness on Palpation (Gricelda-wound No No Skin Appearance) -Ulcer Cleansing Soap and Water Rinsed/ Irrigated with Saline -Foul Odor after Cleansing No No -Anesthetic Used 5% Lidocaine 5% Lidocaine Gel Gel Lower Limb Edema Present No Left Calf (cm) 38.5 Left Ankle (cm) 24.5 WC - Nurse 2 - General Ulcer CM Notes Start: 03/08/25 08:28 Freq: Status: Active Protocol: Activity Type Activity Date Activity User E-sign Co-sign Detail Recorded Client Recorded Date Recorded By Document 03/08/25 08:53 [id number] 03/08/25 09:02 Document 03/15/25 08:54 [id number] 03/15/25 08:59 03/08/25 03/15/25 08:53 08:54 Wound Center Nurse 2 #9 left great toe -Time 08:54 08:55 -Correct Patient Yes Yes -Correct Side, Site, Position Yes Yes -Correct Procedure Yes Yes -Procedure Performed Yes Yes -Type of Procedure Debridement Debridement -Clinical Debridement Subcutaneous Subcutaneous -Tissue Removed Subcutaneous Subcutaneous -Post Debridement (cm) - Length 0.5 0.6 -Post Debridement (cm) - Width 0.5 0.5 -Post Debridement (cm) - Depth 0.1 0.1 -Total Square (Post) (cm) 0.25 0.30 -Area of Debridement (cm) - Length 0.5 0.6 -Area of Debridement (cm) - Width 0.5 0.5 -Total Square (Area) (cm) 0.25 0.30 -Tunneling No No -Undermining/Tunneling No No -Circular Undermining No No -Wound/Ulcer Outcome Not Healed Not Healed -Ulcer Cleansing Rinsed/ Rinsed/ Irrigated with Irrigated with Saline Saline -Foul Odor after Cleansing No No -Bioengineered Tissue No No -Bleeding Controlled with Pressure Pressure -Treatment Response Procedure Procedure Tolerated Well Tolerated Well -Offloading Yes No -Type of Offloading Surgical Shoe -Debridement - Subq, 1st 20sq cm Yes Yes 8-left 4th toe -Time 08:54 08:56 -Correct Patient Yes Yes -Correct Side, Site, Position Yes Yes -Correct Procedure Yes Yes -Procedure Performed Yes Yes -Type of Procedure Debridement Debridement -Clinical Debridement Bone Muscle / Fascia -Tissue Removed Non-viable Muscle tissue -Post Debridement (cm) - Length 0.5 0.5 -Post Debridement (cm) - Width 0.7 0.6 -Post Debridement (cm) - Depth 0.3 0.2 -Total Square (Post) (cm) 0.35 0.30 -Area of Debridement (cm) - Length 0.5 0.5 -Area of Debridement (cm) - Width 0.7 0.6 -Total Square (Area) (cm) 0.35 0.30 -Tunneling No No -Undermining/Tunneling No No -Circular Undermining No No -Wound/Ulcer Outcome Not Healed Not Healed -Ulcer Cleansing Rinsed/ Rinsed/ Irrigated with Irrigated with Saline Saline -Foul Odor after Cleansing No No -Bioengineered Tissue No No -Bleeding Controlled with Pressure Pressure -Treatment Response Procedure Procedure Tolerated Well Tolerated Well -Offloading Yes No -Type of Offloading Surgical Shoe -Debridement - Subq, 1st 20sq cm No -Debridement - Muscle / Fascia, 1st Yes 20sq cm -Debridement - Bone, 1st 20sq cm Yes #7 LT LAT ANKLE -Time 08:55 08:56 -Correct Patient Yes Yes -Correct Side, Site, Position Yes Yes -Correct Procedure Yes Yes -Procedure Performed Yes Yes -Type of Procedure Debridement Debridement -Clinical Debridement Subcutaneous Subcutaneous -Tissue Removed Subcutaneous Subcutaneous -Post Debridement (cm) - Length 0.5 0.2 -Post Debridement (cm) - Width 0.2 0.2 -Post Debridement (cm) - Depth 0.2 0.1 -Total Square (Post) (cm) 0.10 0.04 -Area of Debridement (cm) - Length 0.5 0.2 -Area of Debridement (cm) - Width 0.2 0.2 -Total Square (Area) (cm) 0.10 0.04 -Tunneling No No -Undermining/Tunneling No No -Circular Undermining No No -Wound/Ulcer Outcome Not Healed Not Healed -Ulcer Cleansing Rinsed/ Rinsed/ Irrigated with Irrigated with Saline Saline -Foul Odor after Cleansing No No -Bioengineered Tissue No No -Bleeding Controlled with Pressure Pressure -Treatment Response Procedure Procedure Tolerated Well Tolerated Well -Offloading Yes No -Type of Offloading Surgical Shoe -Debridement - Subq, 1st 20sq cm No No Pain Scale: 0-10 Numeric Is Patient Pain Free? Yes Yes - Nurse 3 - General Ulcer D/C NN Start: 03/08/25 08:28 Freq: Status: Active Protocol: Activity Type Activity Date Activity User E-sign Co-sign Detail Recorded Client Recorded Date Recorded By Document 03/08/25 09:19 [id number] 03/08/25 09:20 03/08/25 09:19 Wound Care Center Nurse 3 #9 left great toe -Ulcer Cleansing Not Cleansed -Foul Odor after Cleansing No -Negative Pressure Wound Therapy N/A -Primary Dressing Covered/Secured with Dry Gauze, Secured with Tape -Other Covering BETADINE 8-left 4th toe -Ulcer Cleansing Not Cleansed -Foul Odor after Cleansing No -Primary Dressing Covered/Secured with Dry Gauze, Secured with Tape -Other Covering BETADINE #7 LT LAT ANKLE -Ulcer Cleansing Not Cleansed -Foul Odor after Cleansing No -Primary Dressing Covered/Secured with Dry Gauze, Secured with Tape -Other Covering HYDROGEL Pain Scale: 0-10 Numeric Is Patient Pain Free? Yes - Visit Discharge Discharge Condition Stable Ambulatory Status Ambulatory Transportation Private Auto Assessment/Plan Assessment/Plan (1) Non-pressure chronic ulcer of left ankle with fat layer exposed: CODE(S): L97.322 - Non-pressure chronic ulcer of left ankle with fat layer exposed PLAN: Patient was examined and evaluated. All findings were discussed with the patient. All questions were answered to the patient satisfaction. Excisional debridement down to including subcutaneous tissue of the left hallux full-thickness wound done with a number 3 mm dermal curette without incident. Predebridement measurement was 0.4 x 0.3 x 0.1 cm.. Post debridement measurement is 0.5 x 0.5 x 0.1 cm. Excisional debridement down to including subcutaneous tissue of the left lateral ankle full-thickness wound done without incident using a number 3 mm dermal curette. Predebridement measurement was 0.3 x 0.2 x 0.1 cm. Postdebridement measurement is 0.5 x 0.2 x 0.2 cm. Excisional debridement down to including subcutaneous tissue, fascia muscle and bone of the left fourth digit full-thickness wound done without incident using a number 3 mm dermal curette as well as rongeur. Predebridement measurement was 0.4 x 0.5 x 0.1 cm. Postdebridement measurement is 0.5 x 0.7 x 0.3 cm. The left lower extremities were cleaned and patted dry. Moist Zohreh was applied to the full-thickness wound to the hallux followed by Betadine paint to the left fourth digit and lateral ankle. Everything was covered with dry sterile dressing and compression wrap was donned to left lower extremity. Patient will continue daily dressing changes as discussed. Patient is to maintain strict blood sugar control which she has been doing well. Educated patient on signs symptoms of infection especially to the fourth toe due to bone debridement during today's clinic. Patient states that he is understanding will reach out to me if there is any concerns. Patient will follow-up with Dr. Hyatt in 1 week (2) Non-pressure chronic ulcer of other part of left foot with fat layer exp osed: CODE(S): L97.522 - Non-pressure chronic ulcer of other part of left foot with fat layer exposed (3) Other specified peripheral vascular diseases: CODE(S): I73.89 - Other specified peripheral vascular diseases (4) Non-pressure chronic ulcer of other part of left foot with bone involvement without evidence of necrosis: CODE(S): L97.526 - Non-pressure chronic ulcer of other part of left foot with bone involvement without evidence of necrosis
--- NOTE | 2025-03-15 12:46 | WC ---
PHOTO-LEFT 4TH TOE 03/15/25
--- NOTE | 2025-03-15 12:51 | WC ---
PHOTO-LEFT LATERAL ANKLE 03/15/25
--- NOTE | 2025-03-15 12:57 | WC ---
PHOTO-LEFT HALLUX 03/15/25
[2025-03-22 08:28] VITALS: BP 140/89; PULSE 82; RESP 16; TEMP 36.6
--- NOTE | 2025-03-22 10:06 | PN.PCM_ITS ---
History of Present Illness Date of Service: 03/22/25 Chief Complaint: non healing ulcer of left lateral malleolus/ankle History of Wound: Be is a 67-year-old white male with type 2 diabetes and a history of poor healing wounds that presents to the wound center today for evaluation and treatment of a nonhealing ulcer of his left lateral ankle/malleolus that started approximately 4 weeks ago. He thinks that his boot was rubbing the area and then noticed that there was drainage and was treating with a bandaid and antibiotic ointment with no improvement and increased drainage and erythema and swelling and then was seen by his PCP who started him on doxycyline and there was still no improvement so he gave him 1 dose of IM Rocephin and then started him on Cephalexin and Bactrim for which he has been taking almost 10 days of treatment and has 5 more days left of medication. He was then referred to the wound center for treatment. He has been covering the wound with gauze and antibiotic ointment but leaving it open to air when he is at home. He appears to have Charcot of the right foot and a collapsed right arch. He has had vascular testing by Dr. Flores his church communications administrator at the [facility] last year. His last A1C is unknown. He denies fever, chills, increased erythema or drainage and has been taking his antibiotics as instructed. Wound culture 01/09/23 was positive for anaerobic bacteria, Pseudomonas, Enterococcus and Klebsiella. He was started on Augmentin and Ciprofloxacin and completed treatment. He had vascular testing and venous insufficiency not identified. ABIs were WNL and not changed from previous. He had CTA with runoff scheduled on 01/21/23 which showed some areas of stenosis in left leg but there was blood flow to dorsalis pedis artery. He had consultation with vascular surgery on 02/02/[address] Gibson prefers to defer any surgical intervention for now as he does not think there is significant arterial disease in his left leg contributing to his difficulty healing. Progress of Wound: Stable full-thickness wound to the left hallux, fourth digit and lateral ankle, left lower extremity Subjective Subjective Patient is a 69-year-old diabetic male presented wound care center today for follow-up evaluation of multiple full-thickness wounds to left lower extremity. Wounds are stable. Patient is doing dressing changes as discussed. He denies any new wounds at this time. He has no pain to left lower extremity. 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 He denies trauma. Denies constitutional symptoms. No other pedal complaints at this time. Objective Data Objective Data Vital Signs: Vital Signs Temp Pulse Resp BP O2 Del Method 97.8 F 82 16 140/89 H Room Air 03/22/25 08:28 03/22/25 08:28 03/22/25 08:28 03/22/25 08:28 03/15/25 08:25 Oxygen Delivery Method Room Air Lab / Micro Data Labs: Laboratory Results - last 24 hr 02/01/25 09:09: POC Glucose 186 H Micro: Microbiology 02/15/25 09:15 Wound - Toe Gram Stain - Final 02/15/25 09:15 Wound - Toe Wound Culture - Final Pseudomonas aeruginosa Corynebacterium minutissimum 02/15/25 09:15 Wound - Toe Anaerobic Culture - Final No anaerobic bacteria isolated. Radiography Diagnostic Testing: Radiology Impression Venous Doppler Study 02/06/25 13:05 Interpretation Summary Deep veins of the lower extremities are bilaterally patent and compressible segmentally. There is no evidence of deep vein thrombosis on either side. Valvular competence appears intact within the proximal deep venous systems bilaterally. The great saphenous veins appear bilaterally patent and compressible segmentally. Sapheno-femoral junctions are bilaterally competent . The right great saphenous vein appears segmentally incompetent. The left great saphenous vein appears incompetent above the knee. The left great saphenous vein appears competent below the knee. Small saphenous veins are patent and competent bilaterally. An incompetent physiotherapy aide vein is noted in the right calf, located 15 centimeters proximal to the right medial malleolus. Ordering Physician: Sunny Hyatt Referring Physician: Swapnil Osullivan Performed By: Erika Tierney RVT Extremity Arterial Study 02/06/25 13:25 Interpretation Summary Triphasic Doppler waveforms are noted at ankle level bilaterally. Pulse-volume recordings appear mildly diminished at ankle and digital levels on the right, but satisfactory at all other levels bilaterally. Resting ankle-brachial indices are normal bilaterally. Digital-brachial indices are normal bilaterally. There is no evidence of significant arterial occlusive disease in the lower extremities bilaterally. Ordering Physician: Sunny Hyatt Referring Physician: Swapnil Osullivan Performed By: ERIKA TIERNEY RVT Physical Exam Narrative Vascular: DP and PT pulses are palpable to the bilateral lower extremity. CFT is brisk. Skin temp great is warm to warm from proximal ankle to distal digit. No focal increase is appreciated. Neurological: Light touch intact. Patient response to painful stimuli. Dermatological: Full-thickness wound appreciated to the left lateral ankle measuring 0.3 x 0.2 x 0.2 cm. Wound base is fibrogranular nature. Full- thickness wound to the left fourth digit measuring 0.6 x 0.7 x 0.3 cm. Negative probe to bone. Blanchable erythema is appreciated. Evidence of full-thickness wound to the left hallux measuring 0.4 x 0.4 x 0.1 cm. Wound base is fibrogranular nature. Excisional debridement down to including subcutaneous tissue of the left hallux full-thickness wound done with a number 3 mm dermal curette without incident. Predebridement measurement was sanguinous crust. Post debridement measurement is 0.4 x 0.4 x 0.1 cm. Excisional debridement down to including subcutaneous tissue of the left lateral ankle full-thickness wound done without incident using a number 3 mm dermal curette. Predebridement measurement was 0.1 x 0.1 x 0.1 cm. Postdebridement measurement is 0.3 x 0.2 x 0.2 cm. Excisional debridement down to including subcutaneous tissue, fascia muscle of the left fourth digit full-thickness wound done without incident using a number 3 mm dermal curette as well as rongeur. Predebridement measurement was 0.4 x 0.4 x 0.1 cm. Postdebridement measurement is 0.6 x 0.7 x 0.3 cm. Musculoskeletal: No pain to palpation to the full-thickness wound to the lateral left ankle. No pain to palpation to the left fourth digit and great toe. No pain with calf pressure. Debridement Note Debridement Note Debridement Free Text: Excisional debridement down to including subcutaneous tissue of the left hallux full-thickness wound done with a number 3 mm dermal curette without incident. Predebridement measurement was sanguinous crust. Post debridement measurement is 0.4 x 0.4 x 0.1 cm. Excisional debridement down to including subcutaneous tissue of the left lateral ankle full-thickness wound done without incident using a number 3 mm dermal curette. Predebridement measurement was 0.1 x 0.1 x 0.1 cm. Postdebridement measurement is 0.3 x 0.2 x 0.2 cm. Excisional debridement down to including subcutaneous tissue, fascia muscle of the left fourth digit full-thickness wound done without incident using a number 3 mm dermal curette as well as rongeur. Predebridement measurement was 0.4 x 0.4 x 0.1 cm. Postdebridement measurement is 0.6 x 0.7 x 0.3 cm. Post-Debridement Measurements and Additional Note: Post-Debridement Measurements/Treatment - Nurse 1 - General Ulcer Assessment Start: 03/08/25 08:28 Freq: Status: Active Protocol: AIXA Activity Type Activity Date Activity User E-sign Co-sign Detail Recorded Client Recorded Date Recorded By Document 03/08/25 08:41 [id number] 03/08/25 08:46 Document 03/15/25 08:25 KW [id number] 03/15/25 08:38 KW Document 03/22/25 08:28 CP [id number] 03/22/25 08:41 CP 03/08/25 03/15/25 03/22/25 08:41 08:25 08:28 - Today's Visit Information Type of service Follow-up Visit Follow-up Visit Follow-up Visit (Physician/IT SECURITY ANALYST (Physician/IT SECURITY ANALYST (Physician/IT SECURITY ANALYST ) ) ) Arrival Mode Ambulatory Ambulatory Ambulatory Accompanied by Patient Identification Verified (Name & Yes Yes Yes ) Vital Signs Temperature (97.8 F-99.1 F) 97.3 F L 97.6 F L 97.8 F Temperature Source Temporal Temporal Temporal Pulse Rate (60-100) 89 84 82 Pulse Location Monitor Monitor Monitor Respiratory Rate (12-18) 16 18 16 Respiratory rate source Ausculation Observation Observation Oxygen Delivery Method Room Air Room Air Blood Pressure (90/60-120/80) 134/83 H 144/91 H 140/89 H Blood Pressure Mean (mm Hg) 100 108 106 Source Monitor Monitor Monitor Position Sitting Semi-Fowlers Sitting Blood Pressure Location Right Arm Left Arm Left Arm History Since Last Visit- (Skip if this is Patient's initial visit) Have you changed medications since your No No No last visit? Any new allergies or adverse reactions No No No Had a fall/change in ADL's that may No No No increase risk of falls Signs or symptoms of abuse and/or No No No neglect since last visit Have you been in the hospital since your No No No last visit? Has dressing in place as prescribed Yes Yes Yes Has compression in place as prescribed Yes Yes Yes Has offloadiing in place as prescribed Yes Yes No Experienced any changes in pain level or No No No management Left Footwear Surgical Shoe Surgical Shoe Regular Shoe with pressure with pressure relief insole relief insole Right Footwear Surgical Shoe Regular Shoe Regular Shoe with pressure relief insole Pain Scale: 0-10 Numeric Is Patient Pain Free? Yes Yes Yes WC - Nurse 1 - General Ulcer Measurement Start: 03/08/25 08:28 Freq: Status: Active Protocol: Activity Type Activity Date Activity User E-sign Co-sign Detail Recorded Client Recorded Date Recorded By Document 03/08/25 08:41 [id number] 03/08/25 08:46 GM Document 03/15/25 08:25 KW [id number] 03/15/25 08:38 KW Document 03/22/25 08:28 CP [id number] 03/22/25 08:41 CP 03/08/25 03/15/25 03/22/25 08:41 08:25 08:28 Wound Center Nurse 1 #9 left great toe -Current Size (cm) - Length 0.5 0.2 -Current Size (cm) - Width 0.5 0.3 -Current Size (cm) - Depth 0.1 0.2 -Total Square Cm 0.25 0.06 -Date of Last Picture (Recall this 03/08/25 03/22/25 field) -Photo Taken Yes Yes -Epithelialization Small 1-33% -Tunneling No -Undermining/Tunneling No -Circular Undermining No -Exudate Amt None Present Small Small -Exudate Type Serosanguineous Serous -Wound Margin Distinct, Distinct, Outline Outline Attached Attached -Granulation Amt Small (1-33%) Small (1-33%) None Present (0 %) -Granulation Quality [place] -Necrosis Amt Small (1-33%) Large (67-100%) Large (67-100%) -Necrotic Tissue Type Adherent Slough Adherent Slough -Structure Exposed N/A -Texture ([place]da-wound Skin Appearance) Assessed Assessed No Abnormality -Moisture ([place]da-wound Skin Appearance) Assessed Assessed No Abnormality -Color ([place]da-wound Skin Appearance) Assessed Assessed No Abnormality -Temperature ([place]-wound Skin No Abnormality No Abnormality No Abnormality Appearance) (Pt Warm) (Pt Warm) (Pt Warm) -Tenderness on Palpation ([place]da-wound No No Skin Appearance) -Ulcer Cleansing Soap and Water Rinsed/ Soap and Water Irrigated with Saline -Foul Odor after Cleansing No No -Anesthetic Used 5% Lidocaine 5% Lidocaine 5% Lidocaine Gel Gel Gel 8-left 4th toe -Current Size (cm) - Length 0.4 0.5 -Current Size (cm) - Width 0.8 0.5 -Current Size (cm) - Depth 0.1 0.2 -Total Square Cm 0.32 0.25 -Date of Last Picture (Recall this 03/08/25 field) -Photo Taken Yes -Epithelialization Small 1-33% -Tunneling No -Undermining/Tunneling No -Circular Undermining No -Exudate Amt None Present Medium Small -Exudate Type Serosanguineous Serous -Wound Margin Distinct, Distinct, Flat & Intact Outline Outline Attached Attached -Granulation Amt Small (1-33%) Medium (34-66%) -Granulation Quality [place] -Slough/Fibrin No -Necrosis Amt Medium (34-66%) Small (1-33%) -Necrotic Tissue Type Adherent Slough Adherent Slough -Structure Exposed N/A -Texture (Gricelda-wound Skin Appearance) Assessed Assessed No Abnormality -Moisture ([place]da-wound Skin Appearance) Assessed Assessed No Abnormality -Color ([place]da-wound Skin Appearance) Assessed Assessed No Abnormality -Temperature ([place]-wound Skin No Abnormality No Abnormality No Abnormality Appearance) (Pt Warm) (Pt Warm) (Pt Warm) -Tenderness on Palpation ([place]da-wound No No No Skin Appearance) -Ulcer Cleansing Soap and Water Rinsed/ Soap and Water Irrigated with Saline -Foul Odor after Cleansing No No -Anesthetic Used 5% Lidocaine 5% Lidocaine 5% Lidocaine Gel Gel Gel #7 LT LAT ANKLE -Current Size (cm) - Length 0.3 0.2 0.2 -Current Size (cm) - Width 0.1 0.3 0.2 -Current Size (cm) - Depth 0.5 0.5 0.3 -Total Square Cm 0.03 0.06 0.04 -Date of Last Picture (Recall this 03/08/25 03/15/25 field) -Photo Taken Yes -Epithelialization Small 1-33% -Tunneling No -Undermining/Tunneling No -Circular Undermining No -Exudate Amt None Present Medium Small -Exudate Type Serosanguineous Serous -Wound Margin Distinct, Thickened Outline Attached -Granulation Amt Small (1-33%) Small (1-33%) -Granulation Quality [place] -Slough/Fibrin No Yes -Necrosis Amt None Present (0 Small (1-33%) %) -Necrotic Tissue Type Adherent Slough Adherent Slough -Structure Exposed N/A -Texture (Gricelda-wound Skin Appearance) Assessed Assessed No Abnormality -Moisture ([place]ricelda-wound Skin Appearance) Assessed Assessed No Abnormality -Color ([place]da-wound Skin Appearance) Assessed Assessed No Abnormality -Temperature ([place]-wound Skin No Abnormality No Abnormality No Abnormality Appearance) (Pt Warm) (Pt Warm) (Pt Warm) -Tenderness on Palpation ([place]ricelda-wound No No Skin Appearance) -Ulcer Cleansing Soap and Water Rinsed/ Soap and Water Irrigated with Saline -Foul Odor after Cleansing No No -Anesthetic Used 5% Lidocaine 5% Lidocaine 5% Lidocaine Gel Gel Gel Lower Limb Edema Present No Left Calf (cm) 38.5 38.5 Left Ankle (cm) 24.5 24.3 WC - Nurse 2 - General Ulcer CM Notes Start: 03/08/25 08:28 Freq: Status: Active Protocol: Activity Type Activity Date Activity User E-sign Co-sign Detail Recorded Client Recorded Date Recorded By Document 03/08/25 08:53 [id number] 03/08/25 09:02 JF Document 03/15/25 08:54 [id number] 03/15/25 08:59 JF Document 03/22/25 08:51 JF [id number] 03/22/25 08:57 03/08/25 03/15/25 03/22/25 08:53 08:54 08:51 Wound Center Nurse 2 #9 left great toe -Time 08:54 08:55 08:52 -Correct Patient Yes Yes Yes -Correct Side, Site, Position Yes Yes Yes -Correct Procedure Yes Yes Yes -Procedure Performed Yes Yes Yes -Type of Procedure Debridement Debridement Debridement -Clinical Debridement Subcutaneous Subcutaneous Subcutaneous -Tissue Removed Subcutaneous Subcutaneous Subcutaneous -Post Debridement (cm) - Length 0.5 0.6 0.4 -Post Debridement (cm) - Width 0.5 0.5 0.4 -Post Debridement (cm) - Depth 0.1 0.1 0.1 -Total Square (Post) (cm) 0.25 0.30 0.16 -Area of Debridement (cm) - Length 0.5 0.6 0.4 -Area of Debridement (cm) - Width 0.5 0.5 0.4 -Total Square (Area) (cm) 0.25 0.30 0.16 -Tunneling No No No -Undermining/Tunneling No No No -Circular Undermining No No No -Wound/Ulcer Outcome Not Healed Not Healed Not Healed -Ulcer Cleansing Rinsed/ Rinsed/ Rinsed/ Irrigated with Irrigated with Irrigated with Saline Saline Saline -Foul Odor after Cleansing No No No -Bioengineered Tissue No No No -Bleeding Controlled with Pressure Pressure Pressure -Treatment Response Procedure Procedure Procedure Tolerated Well Tolerated Well Tolerated Well -Offloading Yes No No -Type of Offloading Surgical Shoe -Debridement - Subq, 1st 20sq cm Yes Yes No 8-left 4th toe -Time 08:54 08:56 08:52 -Correct Patient Yes Yes Yes -Correct Side, Site, Position Yes Yes Yes -Correct Procedure Yes Yes Yes -Procedure Performed Yes Yes Yes -Type of Procedure Debridement Debridement Debridement -Clinical Debridement Bone Muscle / Fascia Subcutaneous -Tissue Removed Non-viable Muscle Subcutaneous, tissue Muscle -Post Debridement (cm) - Length 0.5 0.5 0.6 -Post Debridement (cm) - Width 0.7 0.6 0.7 -Post Debridement (cm) - Depth 0.3 0.2 0.3 -Total Square (Post) (cm) 0.35 0.30 0.42 -Area of Debridement (cm) - Length 0.5 0.5 0.6 -Area of Debridement (cm) - Width 0.7 0.6 0.7 -Total Square (Area) (cm) 0.35 0.30 0.42 -Tunneling No No No -Undermining/Tunneling No No No -Circular Undermining No No No -Wound/Ulcer Outcome Not Healed Not Healed Not Healed -Ulcer Cleansing Rinsed/ Rinsed/ Rinsed/ Irrigated with Irrigated with Irrigated with Saline Saline Saline -Foul Odor after Cleansing No No No -Bioengineered Tissue No No No -Bleeding Controlled with Pressure Pressure Pressure -Treatment Response Procedure Procedure Procedure Tolerated Well Tolerated Well Tolerated Well -Offloading Yes No No -Type of Offloading Surgical Shoe -Debridement - Subq, 1st 20sq cm No No -Debridement - Muscle / Fascia, 1st Yes 20sq cm -Debridement - Bone, 1st 20sq cm Yes #7 LT LAT ANKLE -Time 08:55 08:56 08:53 -Correct Patient Yes Yes Yes -Correct Side, Site, Position Yes Yes Yes -Correct Procedure Yes Yes Yes -Procedure Performed Yes Yes Yes -Type of Procedure Debridement Debridement Debridement -Clinical Debridement Subcutaneous Subcutaneous Subcutaneous -Tissue Removed Subcutaneous Subcutaneous Subcutaneous -Post Debridement (cm) - Length 0.5 0.2 0.3 -Post Debridement (cm) - Width 0.2 0.2 0.2 -Post Debridement (cm) - Depth 0.2 0.1 0.2 -Total Square (Post) (cm) 0.10 0.04 0.06 -Area of Debridement (cm) - Length 0.5 0.2 0.3 -Area of Debridement (cm) - Width 0.2 0.2 0.2 -Total Square (Area) (cm) 0.10 0.04 0.06 -Tunneling No No No -Undermining/Tunneling No No No -Circular Undermining No No No -Wound/Ulcer Outcome Not Healed Not Healed Not Healed -Ulcer Cleansing Rinsed/ Rinsed/ Rinsed/ Irrigated with Irrigated with Irrigated with Saline Saline Saline -Foul Odor after Cleansing No No No -Bioengineered Tissue No No No -Bleeding Controlled with Pressure Pressure Pressure -Treatment Response Procedure Procedure Procedure Tolerated Well Tolerated Well Tolerated Well -Offloading Yes No No -Type of Offloading Surgical Shoe -Debridement - Subq, 1st 20sq cm No No Yes Pain Scale: 0-10 Numeric Is Patient Pain Free? Yes Yes Yes WC - Nurse 3 - General Ulcer D/C NN Start: 03/08/25 08:28 Freq: Status: Active Protocol: Activity Type Activity Date Activity User E-sign Co-sign Detail Recorded Client Recorded Date Recorded By Document 03/08/25 09:19 [id number] 03/08/25 09:20 GM Document 03/15/25 09:18 [id number] 03/15/25 09:20 GM Document 03/22/25 09:18 [id number] 03/22/25 09:19 03/08/25 03/15/25 03/22/25 09:19 09:18 09:18 Wound Care Center Nurse 3 #9 left great toe -Ulcer Cleansing Not Cleansed Not Cleansed Not Cleansed -Foul Odor after Cleansing No No No -Negative Pressure Wound Therapy N/A -Primary Dressing Applied Hysept -Primary Dressing Covered/Secured with Dry Gauze, Dry Gauze, Dry Gauze, Secured with Secured with Secured with Tape Tape Tape -Other Covering BETADINE dakins moist -Hysept 1 8-left 4th toe -Ulcer Cleansing Not Cleansed Not Cleansed Not Cleansed -Foul Odor after Cleansing No No No -Primary Dressing Covered/Secured with Dry Gauze, Dry Gauze, Dry Gauze, Secured with Secured with Secured with Tape Tape Tape -Other Covering BETADINE used dakins 0. dakins moist 25% #7 LT LAT ANKLE -Ulcer Cleansing Not Cleansed Not Cleansed Not Cleansed -Foul Odor after Cleansing No No -Primary Dressing Applied C Hydrogel -Primary Dressing Covered/Secured with Dry Gauze, Dry Gauze, Dry Gauze & Secured with Secured with Roll Gauze, Tape Tape Secured with Tape -Other Covering HYDROGEL hydrogel -Hydrogel 1 LLE -Lotion applied to leg before No No compression wrap -Tubular Bandage Single Layer Single Layer -Size of Tubigrip Used Size E Size E -Size E ($) 1 1 Pain Scale: 0-10 Numeric Is Patient Pain Free? Yes Yes Yes WC - Visit Discharge Discharge Condition Stable Unstable Stable Ambulatory Status Ambulatory Ambulatory Ambulatory Transportation Private Auto Private Auto Private Auto Assessment/Plan Assessment/Plan (1) Non-pressure chronic ulcer of left ankle with fat layer exposed: CODE(S): L97.322 - Non-pressure chronic ulcer of left ankle with fat layer exposed PLAN: Patient was examined and evaluated. All findings were discussed with the patient. All questions were answered to the patient satisfaction. Excisional debridement down to including subcutaneous tissue of the left hallux full-thickness wound done with a number 3 mm dermal curette without incident. Predebridement measurement was sanguinous crust. Post debridement measurement is 0.4 x 0.4 x 0.1 cm. Excisional debridement down to including subcutaneous tissue of the left lateral ankle full-thickness wound done without incident using a number 3 mm dermal curette. Predebridement measurement was 0.1 x 0.1 x 0.1 cm. Postdebridement measurement is 0.3 x 0.2 x 0.2 cm. Excisional debridement down to including subcutaneous tissue, fascia muscle of the left fourth digit full-thickness wound done without incident using a number 3 mm dermal curette as well as rongeur. Predebridement measurement was 0.4 x 0.4 x 0.1 cm. Postdebridement measurement is 0.6 x 0.7 x 0.3 cm. Hydrogel was applied to the full-thickness wound to lateral ankle and Dakin's was applied to the fourth digit and hallux of the left foot. Patient will continue daily dressing changes as discussed. Patient will continue to practice strict blood sugar control. It was also discussed with the patient that if he continues to have delayed healing to the left fourth digit we will perform an office percutaneous flexor tenotomy and capsulotomy. Risk and benefits cussed with patient great detail. He showed understanding of our explanation. Patient will follow-up with Dr. Hyatt in 1 week (2) Non-pressure chronic ulcer of other part of left foot with necrosis of muscle: CODE(S): L97.523 - Non-pressure chronic ulcer of other part of left foot with necrosis of muscle (3) Non-pressure chronic ulcer of other part of left foot with fat layer exposed: CODE(S): L97.522 - Non-pressure chronic ulcer of other part of left foot with fat layer exposed (4) Other specified peripheral vascular diseases: CODE(S): I73.89 - Other specified peripheral vascular diseases
--- NOTE | 2025-03-23 08:07 | WC ---
PHOTO - LEFT GREAT TOE 03/22/25
--- NOTE | 2025-03-23 08:07 | WC ---
PHOTO- LEFT 4TH TOE 03/22/25
--- NOTE | 2025-03-23 08:08 | WC ---
PHOTO - LEFT LAT ANKLE 03/22/25
== END 2025-04-04 23:59 | disposition home or self-care (01) ==
LOC: WC 08:30
PROVIDERS: PCP Family Medicine; Referring Provider Podiatrist Foot & Ankle Surgery; Visit Provider Podiatrist Foot & Ankle Surgery
DX: E11.621 Type 2 diabetes mellitus with foot ulcer (principal); L97.526 Non-pressure chronic ulcer of other part of left foot with bone involvement without evidence of necrosis; L97.523 Non-pressure chronic ulcer of other part of left foot with necrosis of muscle; L97.322 Non-pressure chronic ulcer of left ankle with fat layer exposed; E11.51 Type 2 diabetes mellitus with diabetic peripheral angiopathy without gangrene
CPT/HCPCS: 11042; 11043; 11044

== ENCOUNTER 2025-05-03 08:00 | Outpatient (RCR) | payer MEDICARE, OTHER, SELFPAY ==
[2025-04-05 08:38] VITALS: BP 147/91; PULSE 86; RESP 16; TEMP 36
--- NOTE | 2025-04-05 12:35 | PN.PCM_ITS ---
History of Present Illness Date of Service: 04/05/25 Chief Complaint: non healing ulcer of left lateral malleolus/ankle History of Wound: Be is a 67-year-old white male with type 2 diabetes and a history of poor healing wounds that presents to the wound center today for evaluation and treatment of a nonhealing ulcer of his left lateral ankle/malleolus that started approximately 4 weeks ago. He thinks that his boot was rubbing the area and then noticed that there was drainage and was treating with a bandaid and antibiotic ointment with no improvement and increased drainage and erythema and swelling and then was seen by his PCP who started him on doxycyline and there was still no improvement so he gave him 1 dose of IM Rocephin and then started him on Cephalexin and Bactrim for which he has been taking almost 10 days of treatment and has 5 more days left of medication. He was then referred to the wound center for treatment. He has been covering the wound with gauze and antibiotic ointment but leaving it open to air when he is at home. He appears to have Charcot of the right foot and a collapsed right arch. He has had vascular testing by Dr. Flores his sap treasury consultant at the [facility] last year. His last A1C is unknown. He denies fever, chills, increased erythema or drainage and has been taking his antibiotics as instructed. Wound culture 01/09/23 was positive for anaerobic bacteria, Pseudomonas, Enterococcus and Klebsiella. He was started on Augmentin and Ciprofloxacin and completed treatment. He had vascular testing and venous insufficiency not identified. ABIs were WNL and not changed from previous. He had CTA with runoff scheduled on 01/21/23 which showed some areas of stenosis in left leg but there was blood flow to dorsalis pedis artery. He had consultation with vascular surgery on 02/02/[address] Gibson prefers to defer any surgical intervention for now as he does not think there is significant arterial disease in his left leg contributing to his difficulty healing. Progress of Wound: Stable multiple full-thickness wounds to left lower extremity. Subjective Subjective Patient is a 69-year-old male presenting to wound care center today for multiple full-thickness wound follow-up to the left lower extremity. Patient has been compliant with dressing changes. His blood sugars well-controlled. He has no pain to left lower extremity. He is ambulating in shoe gear as tolerated. He denies any new onset of trauma. Denies constitutional symptoms. No other pedal complaints at this time. Objective Data Objective Data Vital Signs: Vital Signs Temp Pulse Resp BP O2 Del Method 96.8 F L 86 16 147/91 H Room Air 04/05/25 08:38 04/05/25 08:38 04/05/25 08:38 04/05/25 08:38 04/05/25 08:38 Oxygen Delivery Method Room Air Lab / Micro Data Labs: Laboratory Results - last 24 hr 02/01/25 09:09: POC Glucose 186 H Micro: Microbiology 02/15/25 09:15 Wound - Toe Gram Stain - Final 02/15/25 09:15 Wound - Toe Wound Culture - Final Pseudomonas aeruginosa Corynebacterium minutissimum 02/15/25 09:15 Wound - Toe Anaerobic Culture - Final No anaerobic bacteria isolated. Radiography Diagnostic Testing: Radiology Impression Venous Doppler Study 02/06/25 13:05 Interpretation Summary Deep veins of the lower extremities are bilaterally patent and compressible segmentally. There is no evidence of deep vein thrombosis on either side. Valvular competence appears intact within the proximal deep venous systems bilaterally. The great saphenous veins appear bilaterally patent and compressible segmentally. Sapheno-femoral junctions are bilaterally competent . The right great saphenous vein appears segmentally incompetent. The left great saphenous vein appears incompetent above the knee. The left great saphenous vein appears competent below the knee. Small saphenous veins are patent and competent bilaterally. An incompetent senior safety management consultant vein is noted in the right calf, located 15 centimeters proximal to the right medial malleolus. Ordering Physician: Sunny Hyatt Referring Physician: Swapnil Osullivan Performed By: Erika Tierney RVT Extremity Arterial Study 02/06/25 13:25 Interpretation Summary Triphasic Doppler waveforms are noted at ankle level bilaterally. Pulse-volume recordings appear mildly diminished at ankle and digital levels on the right, but satisfactory at all other levels bilaterally. Resting ankle-brachial indices are normal bilaterally. Digital-brachial indices are normal bilaterally. There is no evidence of significant arterial occlusive disease in the lower extremities bilaterally. Ordering Physician: Sunny Hyatt Referring Physician: Swapnil Osullivan Performed By: ERIKA TIERNEY RVT Physical Exam Narrative Vascular: DP and PT pulses are palpable to the bilateral lower extremity. CFT is brisk. Skin temp great is warm to warm from proximal ankle to distal digit. No focal increase is appreciated. Neurological: Light touch intact. Patient response to painful stimuli. Dermatological: Full-thickness wound appreciated to the left lateral ankle measuring 0.1 x 0.1 x 0.1 cm. Wound base is granular nature. Full-thickness wound to the left fourth digit measuring 0.5 x 0.7 x 0.1 cm. Wound base is a 100 percent granular nature. Negative probe to bone. No erythema. Evidence of full-thickness wound to the left hallux measuring 0.3 x 0.3 x 0.1 cm. Wound base is granular nature. Excisional debridement down to including subcutaneous tissue of the left hallux full-thickness wound done with a number 3 mm dermal curette without incident. Predebridement measurement was sanguinous crust. Post debridement measurement is 0.3 x 0.3 x 0.1 cm. Excisional debridement down to including subcutaneous tissue of the left lateral ankle full-thickness wound done without incident using a number 3 mm dermal curette. Predebridement measurement was sanguinous crust. Postdebridement measurement is 0.1 x 0.1 x 0.1 cm. Excisional debridement down to including subcutaneous tissue of the left fourth digit full-thickness wound done without incident using a number 3 mm dermal curette. Predebridement measurement was 0.3 x 0.5 x 0.1 cm. Postdebridement measurement is 0.5 x 0.7 x 0.1 cm. Musculoskeletal: No pain to palpation to the full-thickness wound to the lateral left ankle. No pain to palpation to the left fourth digit and great toe. No p ain with calf pressure. Debridement Note Debridement Note Debridement Free Text: Excisional debridement down to including subcutaneous tissue of the left hallux full-thickness wound done with a number 3 mm dermal curette without incident. Predebridement measurement was sanguinous crust. Post debridement measurement is 0.3 x 0.3 x 0.1 cm. Excisional debridement down to including subcutaneous tissue of the left lateral ankle full-thickness wound done without incident using a number 3 mm dermal curette. Predebridement measurement was sanguinous crust. Postdebridement measurement is 0.1 x 0.1 x 0.1 cm. Excisional debridement down to including subcutaneous tissue of the left fourth digit full-thickness wound done without incident using a number 3 mm dermal curette. Predebridement measurement was 0.3 x 0.5 x 0.1 cm. Postdebridement measurement is 0.5 x 0.7 x 0.1 cm. Post-Debridement Measurements and Additional Note: Post-Debridement Measurements/Treatment - Nurse 1 - General Ulcer Assessment Start: 04/05/25 08:38 Freq: Status: Active Protocol: AIXA Activity Type Activity Date Activity User E-sign Co-sign Detail Recorded Client Recorded Date Recorded By Document 04/05/25 08:38 [id number] 04/05/25 08:43 04/05/25 08:38 - Today's Visit Information Type of service Follow-up Visit (Physician/BR[facility] ) Arrival Mode Ambulatory Patient Identification Verified (Name & Yes ) Vital Signs Temperature (97.8 F-99.1 F) 96.8 F L Temperature Source Temporal Pulse Rate (60-100) 86 Pulse Location Monitor Respiratory Rate (12-18) 16 Respiratory rate source Monitor Oxygen Delivery Method Room Air Blood Pressure (90/60-120/80) 147/91 H Blood Pressure Mean (mm Hg) 109 Source Monitor Position Sitting Blood Pressure Location Left Arm History Since Last Visit- (Skip if this is Patient's initial visit) Have you changed medications since your No last visit? Any new allergies or adverse reactions No Had a fall/change in ADL's that may No increase risk of falls Signs or symptoms of abuse and/or No neglect since last visit Have you been in the hospital since your No last visit? Has dressing in place as prescribed Yes Has compression in place as prescribed Yes Has offloadiing in place as prescribed N/A Experienced any changes in pain level or No management Left Footwear Regular Shoe Pain Scale: 0-10 Numeric Is Patient Pain Free? Yes WC - Nurse 1 - General Ulcer Measurement Start: 04/05/25 08:38 Freq: Status: Active Protocol: Activity Type Activity Date Activity User E-sign Co-sign Detail Recorded Client Recorded Date Recorded By Document 04/05/25 08:38 [id number] 04/05/25 08:43 GM 04/05/25 08:38 Wound Center Nurse 1 #9 left great toe -Current Size (cm) - Length 0.4 -Current Size (cm) - Width 0.5 -Current Size (cm) - Depth 0.1 -Total Square Cm 0.20 -Date of Last Picture (Recall this 04/05/25 field) -Photo Taken Yes -Epithelialization Small 1-33% -Tunneling No -Undermining/Tunneling No -Circular Undermining No -Exudate Amt Small -Exudate Type Yellow/Green -Wound Margin Distinct, Outline Attached -Granulation Amt Small (1-33%) -Granulation Quality [place] -Slough/Fibrin Yes -Necrosis Amt Small (1-33%) -Necrotic Tissue Type Adherent Slough -Texture (Gricelda-wound Skin Appearance) Assessed -Moisture ([place]da-wound Skin Appearance) Assessed -Color ([place]da-wound Skin Appearance) Assessed -Temperature ([place]da-wound Skin No Abnormality Appearance) (Pt Warm) -Tenderness on Palpation ([place]ricelda-wound No Skin Appearance) -Ulcer Cleansing Soap and Water -Foul Odor after Cleansing No -Anesthetic Used 5% Lidocaine Gel 8-left 4th toe -Current Size (cm) - Length 0.2 -Current Size (cm) - Width 0.2 -Current Size (cm) - Depth 0.1 -Total Square Cm 0.04 -Date of Last Picture (Recall this 04/05/25 field) -Photo Taken Yes -Epithelialization Small 1-33% -Tunneling No -Undermining/Tunneling No -Classification - Thickness Partial Thickness -Exudate Amt Small -Exudate Type Yellow/Green -Wound Margin Distinct, Outline Attached -Granulation Amt Small (1-33%) -Granulation Quality [place] -Slough/Fibrin Yes -Necrosis Amt Small (1-33%) -Necrotic Tissue Type Adherent Slough -Texture (Gricelda-wound Skin Appearance) Assessed -Color (Gricelda-wound Skin Appearance) Assessed -Tenderness on Palpation (Gricelda-wound No Skin Appearance) -Ulcer Cleansing Soap and Water -Foul Odor after Cleansing Yes -Anesthetic Used 5% Lidocaine Gel #7 LT LAT ANKLE -Current Size (cm) - Length 0.1 -Current Size (cm) - Width 0.1 -Current Size (cm) - Depth 0.1 -Total Square Cm 0.01 -Date of Last Picture (Recall this 04/05/25 field) -Photo Taken Yes -Epithelialization Large 67-100% -Tunneling No -Undermining/Tunneling No -Circular Undermining No -Exudate Amt Small -Exudate Type Yellow/Green -Wound Margin Distinct, Outline Attached -Granulation Amt Small (1-33%) -Granulation Quality [place] -Slough/Fibrin No -Texture (Gricelda-wound Skin Appearance) Assessed -Moisture (Gricelda-wound Skin Appearance) Assessed -Color (Gricelda-wound Skin Appearance) Assessed -Temperature (Gricelda-wound Skin No Abnormality Appearance) (Pt Warm) -Ulcer Cleansing Soap and Water -Foul Odor after Cleansing Yes -Anesthetic Used 5% Lidocaine Gel Lower Limb Edema Present No Left Calf (cm) 38.5 Left Ankle (cm) 28.5 WC - Nurse 2 - General Ulcer CM Notes Start: 04/05/25 08:38 Freq: Status: Active Protocol: Activity Type Activity Date Activity User E-sign Co-sign Detail Recorded Client Recorded Date Recorded By Document 04/05/25 08:55 MONICO [id number] 04/05/25 09:02 MONICO 04/05/25 08:55 Wound Center Nurse 2 #9 left great toe -Time 08:56 -Correct Patient Yes -Correct Side, Site, Position Yes -Correct Procedure Yes -Procedure Performed Yes -Type of Procedure Debridement -Clinical Debridement Subcutaneous -Tissue Removed Subcutaneous -Post Debridement (cm) - Length 0.3 -Post Debridement (cm) - Width 0.3 -Post Debridement (cm) - Depth 0.1 -Total Square (Post) (cm) 0.09 -Area of Debridement (cm) - Length 0.3 -Area of Debridement (cm) - Width 0.3 -Total Square (Area) (cm) 0.09 -Tunneling No -Undermining/Tunneling No -Circular Undermining No -Wound/Ulcer Outcome Not Healed -Ulcer Cleansing Rinsed/ Irrigated with Saline -Foul Odor after Cleansing No -Bioengineered Tissue No -Bleeding Controlled with Pressure -Treatment Response Procedure Tolerated Well -Offloading No -Debridement - Subq, 1st 20sq cm No 8-left 4th toe -Time 08:56 -Correct Patient Yes -Correct Side, Site, Position Yes -Correct Procedure Yes -Procedure Performed Yes -Type of Procedure Debridement -Clinical Debridement Subcutaneous -Tissue Removed Subcutaneous -Post Debridement (cm) - Length 0.5 -Post Debridement (cm) - Width 0.7 -Post Debridement (cm) - Depth 0.1 -Total Square (Post) (cm) 0.35 -Area of Debridement (cm) - Length 0.5 -Area of Debridement (cm) - Width 0.7 -Total Square (Area) (cm) 0.35 -Tunneling No -Undermining/Tunneling No -Circular Undermining No -Wound/Ulcer Outcome Not Healed -Ulcer Cleansing Rinsed/ Irrigated with Saline -Foul Odor after Cleansing No -Bioengineered Tissue No -Bleeding Controlled with Pressure -Treatment Response Procedure Tolerated Well -Offloading No -Debridement - Subq, 1st 20sq cm Yes #7 LT LAT ANKLE -Time 08:59 -Correct Patient Yes -Correct Side, Site, Position Yes -Correct Procedure Yes -Procedure Performed Yes -Type of Procedure Debridement -Clinical Debridement Subcutaneous -Tissue Removed Subcutaneous -Post Debridement (cm) - Length 0.1 -Post Debridement (cm) - Width 0.1 -Post Debridement (cm) - Depth 0.1 -Total Square (Post) (cm) 0.01 -Area of Debridement (cm) - Length 0.1 -Area of Debridement (cm) - Width 0.1 -Total Square (Area) (cm) 0.01 -Tunneling No -Undermining/Tunneling No -Circular Undermining No -Wound/Ulcer Outcome Not Healed -Ulcer Cleansing Rinsed/ Irrigated with Saline -Foul Odor after Cleansing No -Bioengineered Tissue No -Bleeding Controlled with Pressure -Treatment Response Procedure Tolerated Well -Offloading No -Debridement - Subq, 1st 20sq cm No Pain Scale: 0-10 Numeric Is Patient Pain Free? Yes - Nurse 3 - General Ulcer D/C NN Start: 04/05/25 08:38 Freq: Status: Active Protocol: Activity Type Activity Date Activity User E-sign Co-sign Detail Recorded Client Recorded Date Recorded By Document 04/05/25 09:01 [id number] 04/05/25 09:03 Document 04/05/25 09:22 [id number] 04/05/25 09:24 04/05/25 04/05/25 09:01 09:22 Wound Care Center Nurse 3 #9 left great toe -Ulcer Cleansing Not Cleansed -Foul Odor after Cleansing No -Other Dressing betadine paint -Primary Dressing Covered/Secured with Dry Gauze, Dry Gauze, Secured with Secured with Tape Tape -Other Covering dakins wet to dry 8-left 4th toe -Ulcer Cleansing Not Cleansed -Foul Odor after Cleansing No -Other Dressing dakins wet to dry -Primary Dressing Covered/Secured with Dry Gauze, Secured with Tape #7 LT LAT ANKLE -Ulcer Cleansing Not Cleansed -Foul Odor after Cleansing No -Other Dressing epifix -Primary Dressing Covered/Secured with Other -Other Covering bacitracin and a bandaid BLE -Multi-Layered Wrap Application Multi-Layer Comp - Bilat ($ ) -Tubular Bandage Single Layer -Size of Tubigrip Used Size E -Size E ($) 1 -Multi-Layer Compression Bilat (Qty 1 applied) Pain Scale: 0-10 Numeric Is Patient Pain Free? Yes Yes - Visit Discharge Discharge Condition Stable Ambulatory Status Ambulatory Transportation Private Auto Assessment/Plan Assessment/Plan (1) Non-pressure chronic ulcer of left ankle with fat layer exposed: CODE(S): L97.322 - Non-pressure chronic ulcer of left ankle with fat layer exposed PLAN: Patient was examined and evaluated. All findings were discussed with the patient. All questions were answered to the patient satisfaction. Excisional debridement down to including subcutaneous tissue of the left hallux full-thickness wound done with a number 3 mm dermal curette without incident. Predebridement measurement was sanguinous crust. Post debridement measurement is 0.3 x 0.3 x 0.1 cm. Excisional debridement down to including subcutaneous tissue of the left lateral ankle full-thickness wound done without incident using a number 3 mm dermal curette. Predebridement measurement was sanguinous crust. Postdebridement measurement is 0.1 x 0.1 x 0.1 cm. Excisional debridement down to including subcutaneous tissue of the left fourth digit full-thickness wound done without incident using a number 3 mm dermal curette. Predebridement measurement was 0.3 x 0.5 x 0.1 cm. Postdebridement measurement is 0.5 x 0.7 x 0.1 cm. The left lower extremities were cleaned and patted dry. Dakin soaked gauze was applied to the left hallux and fourth digit and hydrogel was applied to the left ankle full-thickness wound. The area was dressed with dry sterile dressing and compression wrap. Patient will change daily. Patient will continue strict blood sugar control. Patient will be going on a vacation and return to clinic in approximately 2 to 3 weeks. Patient will follow-up with Dr. Hyatt in 2-3 week (2) Non-pressure chronic ulcer of other part of left foot with fat layer exposed: CODE(S): L97.522 - Non-pressure chronic ulcer of other part of left foot with fat layer exposed (3) Other specified peripheral vascular diseases: CODE(S): I73.89 - Other specified peripheral vascular diseases
--- NOTE | 2025-04-06 09:10 | WC ---
PHOTO-LEFT ANKLE 04/05/25
--- NOTE | 2025-04-06 09:16 | WC ---
PHOTO-LEFT 4TH TOE 04/05/25
--- NOTE | 2025-04-06 09:19 | WC ---
PHOTO-LEFT HALLUX 04/05/25
[2025-04-19 08:40] VITALS: BP 128/87; PULSE 82; RESP 16; TEMP 36.8
--- NOTE | 2025-04-19 09:09 | PN.PCM_ITS ---
History of Present Illness Date of Service: 04/19/25 Chief Complaint: non healing ulcer of left lateral malleolus/ankle History of Wound: Be is a 67-year-old white male with type 2 diabetes and a history of poor healing wounds that presents to the wound center today for evaluation and treatment of a nonhealing ulcer of his left lateral ankle/malleolus that started approximately 4 weeks ago. He thinks that his boot was rubbing the area and then noticed that there was drainage and was treating with a bandaid and antibiotic ointment with no improvement and increased drainage and erythema and swelling and then was seen by his PCP who started him on doxycyline and there was still no improvement so he gave him 1 dose of IM Rocephin and then started him on Cephalexin and Bactrim for which he has been taking almost 10 days of treatment and has 5 more days left of medication. He was then referred to the wound center for treatment. He has been covering the wound with gauze and antibiotic ointment but leaving it open to air when he is at home. He appears to have Charcot of the right foot and a collapsed right arch. He has had vascular testing by Dr. Flores his historic interpreter at the [facility] last year. His last A1C is unknown. He denies fever, chills, increased erythema or drainage and has been taking his antibiotics as instructed. Wound culture 01/09/23 was positive for anaerobic bacteria, Pseudomonas, Enterococcus and Klebsiella. He was started on Augmentin and Ciprofloxacin and completed treatment. He had vascular testing and venous insufficiency not identified. ABIs were WNL and not changed from previous. He had CTA with runoff scheduled on 01/21/23 which showed some areas of stenosis in left leg but there was blood flow to dorsalis pedis artery. He had consultation with vascular surgery on 02/02/[address] Gibson prefers to defer any surgical intervention for now as he does not think there is significant arterial disease in his left leg contributing to his difficulty healing. Progress of Wound: Stable multiple full-thickness wounds to left lower extremity. Subjective Subjective Patient is a 69-year-old diabetic male presenting to the wound care center today follow-up evaluation of multiple full-thickness wounds to left lower extremity. Patient has recently got back from a road trip for the past 2 weeks and has been compliant with dressing changes. She admits the great toe wound is now healed. His blood sugars well-controlled. He was doing dressing changes as discussed. He denies trauma. Denies constitutional symptoms. No other pedal complaints at this time. Objective Data Objective Data Vital Signs: Vital Signs Temp Pulse Resp BP O2 Del Method 98.3 F 82 16 128/87 H Room Air 04/19/25 08:40 04/19/25 08:40 04/19/25 08:40 04/19/25 08:40 04/19/25 08:40 Oxygen Delivery Method Room Air Lab / Micro Data Labs: Laboratory Results - last 24 hr 02/01/25 09:09: POC Glucose 186 H Micro: Microbiology 02/15/25 09:15 Wound - Toe Gram Stain - Final 02/15/25 09:15 Wound - Toe Wound Culture - Final Pseudomonas aeruginosa Corynebacterium minutissimum 02/15/25 09:15 Wound - Toe Anaerobic Culture - Final No anaerobic bacteria isolated. Radiography Diagnostic Testing: Radiology Impression Venous Doppler Study 02/06/25 13:05 Interpretation Summary Deep veins of the lower extremities are bilaterally patent and compressible segmentally. There is no evidence of deep vein thrombosis on either side. Valvular competence appears intact within the proximal deep venous systems bilaterally. The great saphenous veins appear bilaterally patent and compressible segmentally. Sapheno-femoral junctions are bilaterally competent . The right great saphenous vein appears segmentally incompetent. The left great saphenous vein appears incompetent above the knee. The left great saphenous vein appears competent below the knee. Small saphenous veins are patent and competent bilaterally. An incompetent room inspector vein is noted in the right calf, located 15 centimeters proximal to the right medial malleolus. Ordering Physician: Sunny Hyatt Referring Physician: Swapnil Osullivan Performed By: Erika Tierney RVT Extremity Arterial Study 02/06/25 13:25 Interpretation Summary Triphasic Doppler waveforms are noted at ankle level bilaterally. Pulse-volume recordings appear mildly diminished at ankle and digital levels on the right, but satisfactory at all other levels bilaterally. Resting ankle-brachial indices are normal bilaterally. Digital-brachial indices are normal bilaterally. There is no evidence of significant arterial occlusive disease in the lower extremities bilaterally. Ordering Physician: Sunny Hyatt Referring Physician: Swapnil Osullivan Performed By: ERIKA TIERNEY RVT Physical Exam Narrative Vascular: DP and PT pulses are palpable to the bilateral lower extremity. CFT is brisk. Skin temp great is warm to warm from proximal ankle to distal digit. No focal increase is appreciated. Neurological: Light touch intact. Patient response to painful stimuli. Dermatological: Full-thickness wound appreciated to the left lateral ankle measuring 0.5 x 0.1 x 0.1 cm. Wound base is granular nature. Full-thickness wound to the left fourth digit measuring 0.3 x 0.4 x 0.1 cm. Wound base is a 100 percent granular nature. Negative probe to bone. No erythema. Full-t hickness wound to the left hallux is now healed. Excisional debridement down to including subcutaneous tissue of the left lateral ankle full-thickness wound done without incident using a number 3 mm dermal curette. Predebridement measurement was sanguinous crust. Postdebridement measurement is 0.5 x 0.1 x 0.1 cm. Excisional debridement down to including subcutaneous tissue of the left fourth digit full-thickness wound done without incident using a number 3 mm dermal curette. Predebridement measurement was 0.3 x 0.3 x 0.1 cm. Postdebridement measurement is 0.3 x 0.4 x 0.1 cm. Musculoskeletal: No pain to palpation to the full-thickness wound to the lateral left ankle or fourth digit. No pain with calf pressure. Debridement Note Debridement Note Debridement Free Text: Excisional debridement down to including subcutaneous tissue of the left lateral ankle full-thickness wound done without incident using a number 3 mm dermal curette. Predebridement measurement was sanguinous crust. Postdebridement measurement is 0.5 x 0.1 x 0.1 cm. Excisional debridement down to including subcutaneous tissue of the left fourth digit full-thickness wound done without incident using a number 3 mm dermal curette. Predebridement measurement was 0.3 x 0.3 x 0.1 cm. Postdebridement measurement is 0.3 x 0.4 x 0.1 cm. Post-Debridement Measurements and Additional Note: Post-Debridement Measurements/Treatment - Nurse 1 - General Ulcer Assessment Start: 04/05/25 08:38 Freq: Status: Active Protocol: AIXA Activity Type Activity Date Activity User E-sign Co-sign Detail Recorded Client Recorded Date Recorded By Document 04/05/25 08:38 [id number] 04/05/25 08:43 Document 04/19/25 08:40 [id number] 04/19/25 08:55 04/05/25 04/19/25 08:38 08:40 - Today's Visit Information Type of service Follow-up Visit Follow-up Visit (Physician/COUNTY COURT JUDGE (Physician/COUNTY COURT JUDGE ) ) Arrival Mode Ambulatory Ambulatory Patient Identification Verified (Name & Yes Yes ) Patient Requires Transmission-Based No Precautions Vital Signs Temperature (97.8 F-99.1 F) 96.8 F L 98.3 F Temperature Source Temporal Temporal Pulse Rate (60-100) 86 82 Pulse Location Monitor Monitor Respiratory Rate (12-18) 16 16 Respiratory rate source Monitor Observation Oxygen Delivery Method Room Air Room Air Blood Pressure (90/60-120/80) 147/91 H 128/87 H Blood Pressure Mean (mm Hg) 109 100 Source Monitor Monitor Position Sitting Supine Blood Pressure Location Left Arm Left Arm History Since Last Visit- (Skip if this is Patient's initial visit) Have you changed medications since your No No last visit? Any new allergies or adverse reactions No No Had a fall/change in ADL's that may No No increase risk of falls Signs or symptoms of abuse and/or No No neglect since last visit Have you been in the hospital since your No No last visit? Has dressing in place as prescribed Yes Yes Has compression in place as prescribed Yes Yes Has offloadiing in place as prescribed N/A N/A Experienced any changes in pain level or No No management Left Footwear Regular Shoe Regular Shoe Right Footwear Regular Shoe Pain Scale: 0-10 Numeric Is Patient Pain Free? Yes No WC - Nurse 1 - General Ulcer Measurement Start: 04/05/25 08:38 Freq: Status: Active Protocol: Activity Type Activity Date Activity User E-sign Co-sign Detail Recorded Client Recorded Date Recorded By Document 04/05/25 08:38 [id number] 04/05/25 08:43 GM Document 04/19/25 08:40 [id number] 04/19/25 08:55 GM 04/05/25 04/19/25 08:38 08:40 Wound Center Nurse 1 #9 left great toe -Current Size (cm) - Length 0.4 0.1 -Current Size (cm) - Width 0.5 0.1 -Current Size (cm) - Depth 0.1 0.1 -Total Square Cm 0.20 0.01 -Date of Last Picture (Recall this 04/05/25 04/19/25 field) -Photo Taken Yes Yes -Epithelialization Small 1-33% Small 1-33% -Tunneling No No -Undermining/Tunneling No No -Circular Undermining No No -Exudate Amt Small Small -Exudate Type Yellow/Green Yellow/Green -Wound Margin Distinct, Distinct, Outline Outline Attached Attached -Granulation Amt Small (1-33%) -Granulation Quality [place] -Slough/Fibrin Yes -Necrosis Amt Small (1-33%) -Necrotic Tissue Type Adherent Slough -Texture (Gricelda-wound Skin Appearance) Assessed No Abnormality, Assessed -Moisture ([place]elda-wound Skin Appearance) Assessed No Abnormality, Assessed -Color ([place]elda-wound Skin Appearance) Assessed No Abnormality, Assessed -Temperature ([place]elda-wound Skin No Abnormality No Abnormality Appearance) (Pt Warm) (Pt Warm) -Tenderness on Palpation (G[place]elda-wound No No Skin Appearance) -Ulcer Cleansing Soap and Water Rinsed/ Irrigated with Saline -Foul Odor after Cleansing No No -Anesthetic Used 5% Lidocaine 5% Lidocaine Gel Gel -Wound Comment(s) scabbed over 8-left 4th toe -Current Size (cm) - Length 0.2 0.2 -Current Size (cm) - Width 0.2 0.3 -Current Size (cm) - Depth 0.1 0.1 -Total Square Cm 0.04 0.06 -Date of Last Picture (Recall this 04/05/25 04/19/25 field) -Photo Taken Yes Yes -Epithelialization Small 1-33% Small 1-33% -Tunneling No No -Undermining/Tunneling No No -Circular Undermining No -Classification - Thickness Partial Thickness -Exudate Amt Small Small -Exudate Type Yellow/Green Yellow/Green -Wound Margin Distinct, Distinct, Outline Outline Attached Attached -Granulation Amt Small (1-33%) Small (1-33%) -Granulation Quality [place] -Slough/Fibrin Yes Yes -Necrosis Amt Small (1-33%) Small (1-33%) -Necrotic Tissue Type Adherent Slough -Texture (Gricelda-wound Skin Appearance) Assessed No Abnormality, Assessed -Moisture (Gricelda-wound Skin Appearance) No Abnormality, Assessed -Color (Gricelda-wound Skin Appearance) Assessed No Abnormality, Assessed -Temperature (G[place]elda-wound Skin No Abnormality Appearance) (Pt Warm) -Tenderness on Palpation (Gricelda-wound No No Skin Appearance) -Ulcer Cleansing Soap and Water Rinsed/ Irrigated with Saline -Foul Odor after Cleansing Yes No -Anesthetic Used 5% Lidocaine 5% Lidocaine Gel Gel #7 LT LAT ANKLE -Current Size (cm) - Length 0.1 0.1 -Current Size (cm) - Width 0.1 0.1 -Current Size (cm) - Depth 0.1 0.1 -Total Square Cm 0.01 0.01 -Date of Last Picture (Recall this 04/05/25 04/19/25 field) -Photo Taken Yes Yes -Epithelialization Large 67-100% None Present -Tunneling No No -Undermining/Tunneling No No -Circular Undermining No No -Exudate Amt Small None Present -Exudate Type Yellow/Green -Wound Margin Distinct, Distinct, Outline Outline Attached Attached -Granulation Amt Small (1-33%) Large (67-100%) -Granulation Quality [place] -Slough/Fibrin No No -Necrosis Amt None Present (0 %) -Texture (Gricelda-wound Skin Appearance) Assessed No Abnormality, Assessed -Moisture (Gricelda-wound Skin Appearance) Assessed No Abnormality, Assessed -Color (Gricelda-wound Skin Appearance) Assessed No Abnormality, Assessed -Temperature (Gricelda-wound Skin No Abnormality No Abnormality Appearance) (Pt Warm) (Pt Warm) -Tenderness on Palpation (Gricelda-wound No Skin Appearance) -Ulcer Cleansing Soap and Water Rinsed/ Irrigated with Saline -Foul Odor after Cleansing Yes No -Anesthetic Used 5% Lidocaine 5% Lidocaine Gel Gel Lower Limb Edema Present No Left Calf (cm) 38.5 Left Ankle (cm) 28.5 WC - Nurse 2 - General Ulcer CM Notes Start: 04/05/25 08:38 Freq: Status: Active Protocol: Activity Type Activity Date Activity User E-sign Co-sign Detail Recorded Client Recorded Date Recorded By Document 04/05/25 08:55 JF [id number] 04/05/25 09:02 JF Document 04/19/25 09:02 JF [id number] 04/19/25 09:05 JF 04/05/25 04/19/25 08:55 09:02 Wound Center Nurse 2 #9 left great toe -Time 08:56 -Correct Patient Yes Yes -Correct Side, Site, Position Yes No -Correct Procedure Yes No -Procedure Performed Yes No -Type of Procedure Debridement -Clinical Debridement Subcutaneous -Tissue Removed Subcutaneous -Post Debridement (cm) - Length 0.3 0 -Post Debridement (cm) - Width 0.3 0 -Post Debridement (cm) - Depth 0.1 0 -Total Square (Post) (cm) 0.09 0 -Area of Debridement (cm) - Length 0.3 0 -Area of Debridement (cm) - Width 0.3 0 -Total Square (Area) (cm) 0.09 0 -Tunneling No -Undermining/Tunneling No -Circular Undermining No -Wound/Ulcer Outcome Not Healed Healed- Epithelialized -Ulcer Cleansing Rinsed/ Irrigated with Saline -Foul Odor after Cleansing No -Bioengineered Tissue No -Bleeding Controlled with Pressure -Treatment Response Procedure Tolerated Well -Offloading No -Debridement - Subq, 1st 20sq cm No 8-left 4th toe -Time 08:56 09:03 -Correct Patient Yes Yes -Correct Side, Site, Position Yes Yes -Correct Procedure Yes Yes -Procedure Performed Yes Yes -Type of Procedure Debridement Debridement -Clinical Debridement Subcutaneous Subcutaneous -Tissue Removed Subcutaneous Subcutaneous -Post Debridement (cm) - Length 0.5 0.3 -Post Debridement (cm) - Width 0.7 0.4 -Post Debridement (cm) - Depth 0.1 0.1 -Total Square (Post) (cm) 0.35 0.12 -Area of Debridement (cm) - Length 0.5 0.3 -Area of Debridement (cm) - Width 0.7 0.4 -Total Square (Area) (cm) 0.35 0.12 -Tunneling No No -Undermining/Tunneling No No -Circular Undermining No No -Wound/Ulcer Outcome Not Healed Not Healed -Ulcer Cleansing Rinsed/ Rinsed/ Irrigated with Irrigated with Saline Saline -Foul Odor after Cleansing No No -Bioengineered Tissue No No -Bleeding Controlled with Pressure Pressure -Treatment Response Procedure Procedure Tolerated Well Tolerated Well -Offloading No Yes -Type of Offloading Surgical Shoe -Debridement - Subq, 1st 20sq cm Yes Yes #7 LT LAT ANKLE -Time 08:59 09:03 -Correct Patient Yes Yes -Correct Side, Site, Position Yes Yes -Correct Procedure Yes Yes -Procedure Performed Yes Yes -Type of Procedure Debridement Debridement -Clinical Debridement Subcutaneous Subcutaneous -Tissue Removed Subcutaneous Subcutaneous -Post Debridement (cm) - Length 0.1 0.5 -Post Debridement (cm) - Width 0.1 0.1 -Post Debridement (cm) - Depth 0.1 0.1 -Total Square (Post) (cm) 0.01 0.05 -Area of Debridement (cm) - Length 0.1 0.5 -Area of Debridement (cm) - Width 0.1 0.1 -Total Square (Area) (cm) 0.01 0.05 -Tunneling No No -Undermining/Tunneling No No -Circular Undermining No No -Wound/Ulcer Outcome Not Healed Not Healed -Ulcer Cleansing Rinsed/ Rinsed/ Irrigated with Irrigated with Saline Saline -Foul Odor after Cleansing No No -Bioengineered Tissue No No -Bleeding Controlled with Pressure Pressure -Treatment Response Procedure Procedure Tolerated Well Tolerated Well -Offloading No No -Debridement - Subq, 1st 20sq cm No No Pain Scale: 0-10 Numeric Is Patient Pain Free? Yes Yes - Nurse 3 - General Ulcer D/C NN Start: 04/05/25 08:38 Freq: Status: Active Protocol: Activity Type Activity Date Activity User E-sign Co-sign Detail Recorded Client Recorded Date Recorded By Document 04/05/25 09:01 [id number] 04/05/25 09:03 Document 04/05/25 09:22 [id number] 04/05/25 09:24 04/05/25 04/05/25 09:01 09:22 Wound Care Center Nurse 3 #9 left great toe -Ulcer Cleansing Not Cleansed -Foul Odor after Cleansing No -Other Dressing betadine paint -Primary Dressing Covered/Secured with Dry Gauze, Dry Gauze, Secured with Secured with Tape Tape -Other Covering dakins wet to dry 8-left 4th toe -Ulcer Cleansing Not Cleansed -Foul Odor after Cleansing No -Other Dressing dakins wet to dry -Primary Dressing Covered/Secured with Dry Gauze, Secured with Tape #7 LT LAT ANKLE -Ulcer Cleansing Not Cleansed -Foul Odor after Cleansing No -Other Dressing epifix -Primary Dressing Covered/Secured with Other -Other Covering bacitracin and a bandaid BLE -Multi-Layered Wrap Application Multi-Layer Comp - Bilat ($ ) -Tubular Bandage Single Layer -Size of Tubigrip Used Size E -Size E ($) 1 -Multi-Layer Compression Bilat (Qty 1 applied) Pain Scale: 0-10 Numeric Is Patient Pain Free? Yes Yes WC - Visit Discharge Discharge Condition Stable Ambulatory Status Ambulatory Transportation Private Auto Assessment/Plan Assessment/Plan (1) Non-pressure chronic ulcer of left ankle with fat layer exposed: CODE(S): L97.322 - Non-pressure chronic ulcer of left ankle with fat layer exposed PLAN: Patient was examined and evaluated. All findings were discussed with the patient. All questions were answered to the patient satisfaction. After exam the patient's left hallux is now healed. He will continue to apply Betadine paint to the healed full-thickness wound as well as the medial eminence and pad and protect. Excisional debridement down to including subcutaneous tissue of the left lateral ankle full-thickness wound done without incident using a number 3 mm dermal curette. Predebridement measurement was sanguinous crust. Postdebridement measurement is 0.5 x 0.1 x 0.1 cm. Excisional debridement down to including subcutaneous tissue of the left fourth digit full-thickness wound done without incident using a number 3 mm dermal curette. Predebridement measurement was 0.3 x 0.3 x 0.1 cm. Postdebridement measurement is 0.3 x 0.4 x 0.1 cm. The left lower extremity was wiped clean and patted dry. Hydrogel followed by Dakin soaked gauze was applied to the lateral ankle and fourth digit of the left lower extremity followed by dry sterile dressing compression wrap. He will change daily. He will continue strict blood sugar control. He will continue to rest and elevate is much as possible. Patient educated on signs and symptoms of infection and is to return to the wound care center sooner or following private office. Patient will follow-up with Dr. Hyatt in 2 weeks (2) Non-pressure chronic ulcer of other part of left foot with fat layer exposed: CODE(S): L97.522 - Non-pressure chronic ulcer of other part of left foot with fat layer exposed (3) Other specified peripheral vascular diseases: CODE(S): I73.89 - Other specified peripheral vascular diseases
--- NOTE | 2025-04-20 09:24 | WC ---
PHOTO-LL ANKLE 04/19/25
--- NOTE | 2025-04-20 09:30 | WC ---
PHOTO-LL ANKLE 04/19/25
--- NOTE | 2025-04-20 09:46 | WC ---
PHOTO-LEFT HALLUX 04/19/25
[2025-05-03 08:10] VITALS: BP 156/98; PULSE 83; RESP 17; TEMP 36.3
--- NOTE | 2025-05-03 08:58 | PCM.WC.PN ---
History of Present Illness Date of Service: 05/03/25 Chief Complaint: non healing ulcer of left lateral malleolus/ankle History of Wound: Be is a 67-year-old white male with type 2 diabetes and a history of poor healing wounds that presents to the wound center today for evaluation and treatment of a nonhealing ulcer of his left lateral ankle/malleolus that started approximately 4 weeks ago. He thinks that his boot was rubbing the area and then noticed that there was drainage and was treating with a bandaid and antibiotic ointment with no improvement and increased drainage and erythema and swelling and then was seen by his PCP who started him on doxycyline and there was still no improvement so he gave him 1 dose of IM Rocephin and then started him on Cephalexin and Bactrim for which he has been taking almost 10 days of treatment and has 5 more days left of medication. He was then referred to the wound center for treatment. He has been covering the wound with gauze and antibiotic ointment but leaving it open to air when he is at home. He appears to have Charcot of the right foot and a collapsed right arch. He has had vascular testing by Dr. Flores his hospital intern at the [facility] last year. His last A1C is unknown. He denies fever, chills, increased erythema or drainage and has been taking his antibiotics as instructed. Wound culture 01/09/23 was positive for anaerobic bacteria, Pseudomonas, Enterococcus and Klebsiella. He was started on Augmentin and Ciprofloxacin and completed treatment. He had vascular testing and venous insufficiency not identified. ABIs were WNL and not changed from previous. He had CTA with runoff scheduled on 01/21/23 which showed some areas of stenosis in left leg but there was blood flow to dorsalis pedis artery. He had consultation with vascular surgery on 02/02/[address] Gibson prefers to defer any surgical intervention for now as he does not think there is significant arterial disease in his left leg contributing to his difficulty healing. Progress of Wound: Stable multiple full-thickness wounds to left lower extremity. Subjective Subjective Patient is a 69-year-old diabetic male presenting to clinic today follow-up evaluation of full-thickness wounds to the left lower extremity. Patient has been compliant with dressing changes. He admits that the great toe and fourth are now healed. He is still dealing with the full-thickness wound to the lateral left ankle with some periwound redness. He is very sensitive to adhesives and most likely having a dermatitis. His blood sugars well-controlled. He admits to some light yellowish drainage. He denies any trauma. Denies constitutional symptoms. No other pedal complaints at this time. Objective Data Objective Data Vital Signs: Vital Signs Temp Pulse Resp BP O2 Del Method 97.4 F L 83 17 156/98 H Room Air 05/03/25 08:10 05/03/25 08:10 05/03/25 08:10 05/03/25 08:10 04/19/25 08:40 Oxygen Delivery Method Room Air Lab / Micro Data Labs: Laboratory Results - last 24 hr 02/01/25 09:09: POC Glucose 186 H Micro: Microbiology 02/15/25 09:15 Wound - Toe Gram Stain - Final 02/15/25 09:15 Wound - Toe Wound Culture - Final Pseudomonas aeruginosa Corynebacterium minutissimum 02/15/25 09:15 Wound - Toe Anaerobic Culture - Final No anaerobic bacteria isolated. Radiography Diagnostic Testing: Radiology Impression Venous Doppler Study 02/06/25 13:05 Interpretation Summary Deep veins of the lower extremities are bilaterally patent and compressible segmentally. There is no evidence of deep vein thrombosis on either side. Valvular competence appears intact within the proximal deep venous systems bilaterally. The great saphenous veins appear bilaterally patent and compressible segmentally. Sapheno-femoral junctions are bilaterally competent . The right great saphenous vein appears segmentally incompetent. The left great saphenous vein appears incompetent above the knee. The left great saphenous vein appears competent below the knee. Small saphenous veins are patent and competent bilaterally. An incompetent organizational psychologist vein is noted in the right calf, located 15 centimeters proximal to the right medial malleolus. Ordering Physician: Sunny Hyatt Referring Physician: Swapnil Osullivan Performed By: Erika Tierney RVT Extremity Arterial Study 02/06/25 13:25 Interpretation Summary Triphasic Doppler waveforms are noted at ankle level bilaterally. Pulse-volume recordings appear mildly diminished at ankle and digital levels on the right, but satisfactory at all other levels bilaterally. Resting ankle-brachial indices are normal bilaterally. Digital-brachial indices are normal bilaterally. There is no evidence of significant arterial occlusive disease in the lower extremities bilaterally. Ordering Physician: Sunny Hyatt Referring Physician: Swapnil Osullivan Performed By: ERIKA TIERNEY RVT Physical Exam Narrative Vascular: DP and PT pulses are palpable to the bilateral lower extremity. CFT is brisk. Skin temp great is warm to warm from proximal ankle to distal digit. No focal increase is appreciated. Blanchable periwound erythema. Neurological: Light touch intact. Patient response to painful stimuli. Dermatological: Full-thickness wound appreciated to the left lateral ankle measuring 0.4 x 0.3 x 0.2 cm. Wound base is granular nature. Full-thickness wound to the left fourth digit is now healed. Excisional debridement down to including subcutaneous tissue of the left lateral ankle full-thickness wound done without incident using a number 3 mm dermal curette. Predebridement measurement was sanguinous crust. Postdebridement measurement is 0.4 x 0.3 x 0.2 cm. Musculoskeletal: No pain to palpation to the full-thickness wound to the lateral left ankle or fourth digit. No pain with calf pressure. Debridement Note Debridement Note Debridement Free Text: Excisional debridement down to including subcutaneous tissue of the left lateral ankle full-thickness wound done without incident using a number 3 mm dermal curette. Predebridement measurement was sanguinous crust. Postdebridement measurement is 0.4 x 0.3 x 0.2 cm. Post-Debridement Measurements and Additional Note: Post-Debridement Measurements/Treatment WC - Nurse 1 - General Ulcer Assessment Start: 04/05/25 08:38 Freq: Status: Active Protocol: DOMINIQUE.LOWRAMIREZT Activity Type Activity Date Activity User E-sign Co-sign Detail Recorded Client Recorded Date Recorded By Document 04/05/25 08:38 GM [id number] 04/05/25 08:43 GM Document 04/19/25 08:40 GM [id number] 04/19/25 08:55 GM Document 05/03/25 08:10 TS [id number] 05/03/25 08:16 TS 04/05/25 04/19/25 05/03/25 08:38 08:40 08:10 - Today's Visit Information Type of service Follow-up Visit Follow-up Visit Follow-up Visit (Physician/TOW DRIVER (Physician/TOW DRIVER (Physician/TOW DRIVER ) ) ) Arrival Mode Ambulatory Ambulatory Ambulatory Patient Identification Verified (Name & Yes Yes Yes ) Patient Requires Transmission-Based No No Precautions Safety Precautions Fall Prevention Vital Signs Temperature (97.8 F-99.1 F) 96.8 F L 98.3 F 97.4 F L Temperature Source Temporal Temporal Temporal Pulse Rate (60-100) 86 82 83 Pulse Location Monitor Monitor Monitor Respiratory Rate (12-18) 16 16 17 Respiratory rate source Monitor Observation Observation Oxygen Delivery Method Room Air Room Air Blood Pressure (90/60-120/80) 147/91 H 128/87 H 156/98 H Blood Pressure Mean (mm Hg) 109 100 117 Source Monitor Monitor Monitor Position Sitting Supine Sitting Blood Pressure Location Left Arm Left Arm Left Arm History Since Last Visit- (Skip if this is Patient's initial visit) Have you changed medications since your No No No last visit? Any new allergies or adverse reactions No No No Had a fall/change in ADL's that may No No No increase risk of falls Signs or symptoms of abuse and/or No No No neglect since last visit Have you been in the hospital since your No No No last visit? Has dressing in place as prescribed Yes Yes Yes Has compression in place as prescribed Yes Yes Yes Has offloadiing in place as prescribed N/A N/A N/A Experienced any changes in pain level or No No No management Left Footwear Regular Shoe Regular Shoe Regular Shoe Right Footwear Regular Shoe Regular Shoe Pain Scale: 0-10 Numeric Is Patient Pain Free? Yes No Yes - Nurse 1 - General Ulcer Measurement Start: 04/05/25 08:38 Freq: Status: Active Protocol: Activity Type Activity Date Activity User E-sign Co-sign Detail Recorded Client Recorded Date Recorded By Document 04/05/25 08:38 GM [id number] 04/05/25 08:43 GM Document 04/19/25 08:40 GM [id number] 04/19/25 08:55 GM Document 05/03/25 08:10 TS [id number] 05/03/25 08:16 TS 04/05/25 04/19/25 05/03/25 08:38 08:40 08:10 Wound Center Nurse 1 #9 left great toe -Current Size (cm) - Length 0.4 0.1 -Current Size (cm) - Width 0.5 0.1 -Current Size (cm) - Depth 0.1 0.1 -Total Square Cm 0.20 0.01 -Date of Last Picture (Recall this 04/05/25 04/19/25 field) -Photo Taken Yes Yes -Epithelialization Small 1-33% Small 1-33% -Tunneling No No -Undermining/Tunneling No No -Circular Undermining No No -Exudate Amt Small Small -Exudate Type Yellow/Green Yellow/Green -Wound Margin Distinct, Distinct, Outline Outline Attached Attached -Granulation Amt Small (1-33%) -Granulation Quality [place] -Slough/Fibrin Yes -Necrosis Amt Small (1-33%) -Necrotic Tissue Type Adherent Slough -Texture (Gricelda-wound Skin Appearance) Assessed No Abnormality, Assessed -Moisture ([place]ricelda-wound Skin Appearance) Assessed No Abnormality, Assessed -Color ([place]da-wound Skin Appearance) Assessed No Abnormality, Assessed -Temperature ([place]-wound Skin No Abnormality No Abnormality Appearance) (Pt Warm) (Pt Warm) -Tenderness on Palpation ([place]da-wound No No Skin Appearance) -Ulcer Cleansing Soap and Water Rinsed/ Irrigated with Saline -Foul Odor after Cleansing No No -Anesthetic Used 5% Lidocaine 5% Lidocaine Gel Gel -Wound Comment(s) scabbed over 8-left 4th toe -Combined with other wound No -Current Size (cm) - Length 0.2 0.2 0.5 -Current Size (cm) - Width 0.2 0.3 0.3 -Current Size (cm) - Depth 0.1 0.1 0.1 -Total Square Cm 0.04 0.06 0.15 -Date of Last Picture (Recall this 04/05/25 04/19/25 05/03/25 field) -Photo Taken Yes Yes Yes -Epithelialization Small 1-33% Small 1-33% Small 1-33% -Tunneling No No No -Undermining/Tunneling No No No -Circular Undermining No No -Classification - Thickness Partial Thickness -Exudate Amt Small Small None Present -Exudate Type Yellow/Green Yellow/Green -Wound Margin Distinct, Distinct, Distinct, Outline Outline Outline Attached Attached Attached -Granulation Amt Small (1-33%) Small (1-33%) None Present (0 %) -Granulation Quality [place] -Slough/Fibrin Yes Yes Yes -Necrosis Amt Small (1-33%) Small (1-33%) Small (1-33%) -Necrotic Tissue Type Adherent Slough Adherent Slough -Structure Exposed None/Limited to Skin Breakdown -Texture (Gricelda-wound Skin Appearance) Assessed No Abnormality, Assessed Assessed -Moisture (Gricelda-wound Skin Appearance) No Abnormality, Assessed Assessed -Color ([place]ricelda-wound Skin Appearance) Assessed No Abnormality, Assessed Assessed -Temperature (Gricelda-wound Skin No Abnormality No Abnormality Appearance) (Pt Warm) (Pt Warm) -Tenderness on Palpation (Gricelda-wound No No Skin Appearance) -Ulcer Cleansing Soap and Water Rinsed/ Soap and Water Irrigated with Saline -Foul Odor after Cleansing Yes No No -Anesthetic Used 5% Lidocaine 5% Lidocaine 5% Lidocaine Gel Gel Gel #7 LT LAT ANKLE -Combined with other wound No -Current Size (cm) - Length 0.1 0.1 1 -Current Size (cm) - Width 0.1 0.1 1 -Current Size (cm) - Depth 0.1 0.1 0.1 -Total Square Cm 0.01 0.01 1 -Date of Last Picture (Recall this 04/05/25 04/19/25 05/03/25 field) -Photo Taken Yes Yes Yes -Epithelialization Large 67-100% None Present None Present -Tunneling No No No -Undermining/Tunneling No No No -Circular Undermining No No No -Exudate Amt Small None Present None Present -Exudate Type Yellow/Green -Wound Margin Distinct, Distinct, Distinct, Outline Outline Outline Attached Attached Attached -Granulation Amt Small (1-33%) Large (67-100%) None Present (0 %) -Granulation Quality [place] -Slough/Fibrin No No Yes -Necrosis Amt None Present (0 Large (67-100%) %) -Necrotic Tissue Type Adherent Slough -Structure Exposed None/Limited to Skin Breakdown -Texture (Gricelda-wound Skin Appearance) Assessed No Abnormality, Assessed Assessed -Moisture (Gricelda-wound Skin Appearance) Assessed No Abnormality, Assessed Assessed -Color (Gricelda-wound Skin Appearance) Assessed No Abnormality, Assessed Assessed -Temperature (Gricelda-wound Skin No Abnormality No Abnormality No Abnormality Appearance) (Pt Warm) (Pt Warm) (Pt Warm) -Tenderness on Palpation (Gricelda-wound No No Skin Appearance) -Ulcer Cleansing Soap and Water Rinsed/ Soap and Water Irrigated with Saline -Foul Odor after Cleansing Yes No No -Anesthetic Used 5% Lidocaine 5% Lidocaine 5% Lidocaine Gel Gel Gel Lower Limb Edema Present No No Left Calf (cm) 38.5 Point of measurement (cm from the medial 37.5 instep) Left Ankle (cm) 28.5 Point of Measurement (cm from the medial 24 instep) WC - Nurse 2 - General Ulcer CM Notes Start: 04/05/25 08:38 Freq: Status: Active Protocol: Activity Type Activity Date Activity User E-sign Co-sign Detail Recorded Client Recorded Date Recorded By Document 04/05/25 08:55 [id number] 04/05/25 09:02 Document 04/19/25 09:02 JF [id number] 04/19/25 09:05 Document 05/03/25 08:24 JF [id number] 05/03/25 08:26 04/05/25 04/19/25 05/03/25 08:55 09:02 08:24 Wound Center Nurse 2 #9 left great toe -Time 08:56 -Correct Patient Yes Yes -Correct Side, Site, Position Yes No -Correct Procedure Yes No -Procedure Performed Yes No -Type of Procedure Debridement -Clinical Debridement Subcutaneous -Tissue Removed Subcutaneous -Post Debridement (cm) - Length 0.3 0 -Post Debridement (cm) - Width 0.3 0 -Post Debridement (cm) - Depth 0.1 0 -Total Square (Post) (cm) 0.09 0 -Area of Debridement (cm) - Length 0.3 0 -Area of Debridement (cm) - Width 0.3 0 -Total Square (Area) (cm) 0.09 0 -Tunneling No -Undermining/Tunneling No -Circular Undermining No -Wound/Ulcer Outcome Not Healed Healed- Epithelialized -Ulcer Cleansing Rinsed/ Irrigated with Saline -Foul Odor after Cleansing No -Bioengineered Tissue No -Bleeding Controlled with Pressure -Treatment Response Procedure Tolerated Well -Offloading No -Debridement - Subq, 1st 20sq cm No 8-left 4th toe -Time 08:56 09:03 -Correct Patient Yes Yes Yes -Correct Side, Site, Position Yes Yes No -Correct Procedure Yes Yes No -Procedure Performed Yes Yes No -Type of Procedure Debridement Debridement -Clinical Debridement Subcutaneous Subcutaneous -Tissue Removed Subcutaneous Subcutaneous -Post Debridement (cm) - Length 0.5 0.3 0 -Post Debridement (cm) - Width 0.7 0.4 0 -Post Debridement (cm) - Depth 0.1 0.1 0 -Total Square (Post) (cm) 0.35 0.12 0 -Area of Debridement (cm) - Length 0.5 0.3 0 -Area of Debridement (cm) - Width 0.7 0.4 0 -Total Square (Area) (cm) 0.35 0.12 0 -Tunneling No No -Undermining/Tunneling No No -Circular Undermining No No -Wound/Ulcer Outcome Not Healed Not Healed Healed- Epithelialized -Ulcer Cleansing Rinsed/ Rinsed/ Irrigated with Irrigated with Saline Saline -Foul Odor after Cleansing No No -Bioengineered Tissue No No -Bleeding Controlled with Pressure Pressure -Treatment Response Procedure Procedure Tolerated Well Tolerated Well -Offloading No Yes -Type of Offloading Surgical Shoe -Debridement - Subq, 1st 20sq cm Yes Yes #7 LT LAT ANKLE -Time 08:59 09:03 08:25 -Correct Patient Yes Yes Yes -Correct Side, Site, Position Yes Yes Yes -Correct Procedure Yes Yes Yes -Procedure Performed Yes Yes Yes -Type of Procedure Debridement Debridement Debridement -Clinical Debridement Subcutaneous Subcutaneous Subcutaneous -Tissue Removed Subcutaneous Subcutaneous Subcutaneous -Post Debridement (cm) - Length 0.1 0.5 0.4 -Post Debridement (cm) - Width 0.1 0.1 0.3 -Post Debridement (cm) - Depth 0.1 0.1 0.2 -Total Square (Post) (cm) 0.01 0.05 0.12 -Area of Debridement (cm) - Length 0.1 0.5 0.4 -Area of Debridement (cm) - Width 0.1 0.1 0.3 -Total Square (Area) (cm) 0.01 0.05 0.12 -Tunneling No No No -Undermining/Tunneling No No No -Circular Undermining No No No -Wound/Ulcer Outcome Not Healed Not Healed Not Healed -Ulcer Cleansing Rinsed/ Rinsed/ Rinsed/ Irrigated with Irrigated with Irrigated with Saline Saline Saline -Foul Odor after Cleansing No No No -Bioengineered Tissue No No No -Bleeding Controlled with Pressure Pressure Pressure -Treatment Response Procedure Procedure Procedure Tolerated Well Tolerated Well Tolerated Well -Offloading No No No -Debridement - Subq, 1st 20sq cm No No Yes Pain Scale: 0-10 Numeric Is Patient Pain Free? Yes Yes Yes WC - Nurse 3 - General Ulcer D/C NN Start: 04/05/25 08:38 Freq: Status: Active Protocol: Activity Type Activity Date Activity User E-sign Co-sign Detail Recorded Client Recorded Date Recorded By Document 04/05/25 09:01 [id number] 04/05/25 09:03 Document 04/05/25 09:22 [id number] 04/05/25 09:24 Document 04/19/25 09:15 JF [id number] 04/19/25 09:16 Document 05/03/25 08:39 CP [id number] 05/03/25 08:40 CP 04/05/25 04/05/25 04/19/25 09:01 09:22 09:15 Wound Care Center Nurse 3 #9 left great toe -Ulcer Cleansing Not Cleansed -Foul Odor after Cleansing No -Other Dressing betadine paint -Primary Dressing Covered/Secured with Dry Gauze, Dry Gauze, Secured with Secured with Tape Tape -Other Covering dakins wet to dry 8-left 4th toe -Ulcer Cleansing Not Cleansed Rinsed/ Irrigated with Saline -Foul Odor after Cleansing No No -Other Dressing dakins wet to dakin's dry slightly moistend gauze -Primary Dressing Covered/Secured with Dry Gauze, Dry Gauze, Secured with Secured with Tape Tape -Patient Supplied Dressing Yes #7 LT LAT ANKLE -Ulcer Cleansing Not Cleansed Rinsed/ Irrigated with Saline -Foul Odor after Cleansing No -Other Dressing epifix collagen hydrogel -Primary Dressing Covered/Secured with Other Dry Gauze, Secured with Tape -Other Covering bacitracin and a bandaid -Patient Supplied Dressing Yes LLE -Tubular Bandage -Size of Tubigrip Used -Size E ($) BLE -Multi-Layered Wrap Application Multi-Layer Comp - Bilat ($ ) -Tubular Bandage Single Layer Single Layer -Size of Tubigrip Used Size E Size E -Size E ($) 1 0 -Multi-Layer Compression Bilat (Qty 1 applied) Pain Scale: 0-10 Numeric Is Patient Pain Free? Yes Yes Yes WC - Visit Discharge Discharge Condition Stable Stable Ambulatory Status Ambulatory Ambulatory Transportation Private Auto Private Auto Medication Reconcilliation completed & Yes provided to patient/care provider Clinical Summary of Care Provided Yes 05/03/25 08:39 Wound Care Center Nurse 3 #9 left great toe -Ulcer Cleansing -Foul Odor after Cleansing -Other Dressing -Primary Dressing Covered/Secured with -Other Covering 8-left 4th toe -Ulcer Cleansing -Foul Odor after Cleansing -Other Dressing -Primary Dressing Covered/Secured with -Patient Supplied Dressing #7 LT LAT ANKLE -Ulcer Cleansing Rinsed/ Irrigated with Saline -Foul Odor after Cleansing -Other Dressing betadine -Primary Dressing Covered/Secured with Dry Gauze, Secured with Tape -Other Covering -Patient Supplied Dressing LLE -Tubular Bandage Single Layer -Size of Tubigrip Used Size E -Size E ($) 1 BLE -Multi-Layered Wrap Application -Tubular Bandage -Size of Tubigrip Used -Size E ($) -Multi-Layer Compression Bilat (Qty applied) Pain Scale: 0-10 Numeric Is Patient Pain Free? Yes WC - Visit Discharge Discharge Condition Stable Ambulatory Status Ambulatory Transportation Private Auto Medication Reconcilliation completed & provided to patient/care provider Clinical Summary of Care Provided Yes Assessment/Plan Assessment/Plan (1) Non-pressure chronic ulcer of left ankle with fat layer exposed: CODE(S): L97.322 - Non-pressure chronic ulcer of left ankle with fat layer exposed PLAN: Patient was examined and evaluated. All findings were discussed with the patient. All questions were answered to the patient satisfaction. After exam the patient shows some blanchable erythema to the periwound of the left lower extremity ankle full-thickness wound. Educated patient to put a very small amount of triamcinolone cream daily for the next 10 days to avoid getting the steroid into the wound which she is understanding of. Will continue in office wound care at this time. The left fourth digit is now healed. Betadine paint will be applied to the fourth digit sanguinous crust as well as the [place] sanguinous crust. Excisional debridement down to including subcutaneous tissue of the left lateral ankle full-thickness wound done without incident using a number 3 mm dermal curette. Predebridement measurement was sanguinous crust. Postdebridement measurement is 0.4 x 0.3 x 0.2 cm. The area was flushed and culture was taken to rule out any soft tissue infection. The patient will be placed on prophylactically doxycycline 100 mg twice daily for 2 weeks. The area was dressed with moist Zohreh dry sterile dressing and compression wrap. He will change every other day. Patient continue strict blood sugar control. Patient will follow-up with Dr. Hyatt in 1 week (2) Other specified peripheral vascular diseases: CODE(S): I73.89 - Other specified peripheral vascular diseases
--- NOTE | 2025-05-04 09:40 | WC ---
PHOTO-LEFT LATERAL ANKLE 05/03/25
--- NOTE | 2025-05-04 10:36 | WC ---
PHOTO-LEFT 4TH TOE 05/03/25
== END 2025-05-05 23:59 | disposition home or self-care (01) ==
LOC: WC 08:00
PROVIDERS: PCP Family Medicine; Referring Provider Podiatrist Foot & Ankle Surgery; Visit Provider Podiatrist Foot & Ankle Surgery
DX: E11.621 Type 2 diabetes mellitus with foot ulcer (principal); L97.322 Non-pressure chronic ulcer of left ankle with fat layer exposed; L97.522 Non-pressure chronic ulcer of other part of left foot with fat layer exposed; E11.51 Type 2 diabetes mellitus with diabetic peripheral angiopathy without gangrene
CPT/HCPCS: 11042; 29581; 87070; 87075; 87077; 87186; 87205